=== PATIENT | male | born 1955 | race Caucasian/White ===

== ENCOUNTER 2021-04-07 13:05 | Inpatient (IN) | payer MEDICARE, MEDICAID, SELFPAY ==
[2021-04-07] VITALS (17 sets, daily range): BP systolic 84–117; BP diastolic 43–76; PULSE 58–90; RESP 13–20; TEMP 36.5–37; O2SAT 95–97; BMI 30.7
--- NOTE | ~2021-04-07 | CT_ITS ---
EXAMINATION: CT ABDOMEN AND PELVIS WITHOUT CONTRAST CLINICAL INFORMATION: Lower abdominal tenderness. Gross hematuria . COMPARISON: 10/15/2017. TECHNIQUE: Multidetector volumetric imaging was performed from the superior aspect of the liver through the pubic symphysis without contrast per request. Sagittal and coronal reformatted images were obtained on the technologist workstation. This CT examination was performed using dose optimization techniques as appropriate, variously including the following: *Automated exposure control *Adjustment of mA and/or kV according to patient size (this includes techniques or standardized protocols for targeted exams where dose is matched to indication/reason for exam; i.e. extremities or head) *Use of iterative reconstruction technique DLP: 1106 mGy-cm. FINDINGS: LUNG BASES: Aorta calcification within the aorta lumen is consistent with the patient's known aortic dissection but this is not well assessed on this noncontrast study. Left greater than right basilar consolidation/atelectasis. LIVER: Although this is a noncontrast study, I do not appreciate any focal hepatic lesion or obvious biliary ductal dilatation. The gallbladder is not visualized and presumably surgically absent PANCREAS: Unremarkable. SPLEEN: Unremarkable. ADRENAL GLANDS: Unremarkable. KIDNEYS AND URETERS: The kidneys are normal in size, shape, and attenuation. No hydronephrosis, hydroureter, or calculi seen. No perinephric stranding. BLADDER: Napier catheter is seen within the bladder. Probable TURP defect within the prostate. There is dense material in the bladder lumen more likely representing blood products in the setting of hematuria although residual contrast could have a similar appearance. GASTROINTESTINAL TRACT: Left lower quadrant colostomy. Decompressed remaining rectosigmoid colon with the flow staple line in the left lower quadrant. Small amount of nonobstructed small bowel within the left lower quadrant parastomal hernia. I do not appreciate any obstructive changes in the colon extending into the left lower quadrant colostomy. ABDOMINAL WALL: Left lower quadrant colostomy with small bowel containing parastomal hernia. Tiny fat-containing periumbilical hernia. LYMPHOVASCULAR STRUCTURES: Extensive vascular calcification within the aorta iliac system. The known aortic dissection was better seen on the prior contrast-enhanced CT. PELVIC VISCERA: Probable TURP defect. There is a subtle linear density along the right side of the prostatic urethra of uncertain significance or etiology. This was not seen on the 2018 CT scan through this area OSSEUS STRUCTURES: Extensive degenerative changes in the spine. Exaggerated lumbar lordosis. Marked degenerative changes in the hips. Likely bilateral ischial decubiti ulcer right more so than left with likely chronic bony remodeling changes in the right greater than left ischial bones. Acute osteomyelitis would be difficult to exclude in this setting CT/CT abdomen pelvis wo con IMPRESSION: Dense material within the bladder likely representing blood products in the acute setting. 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 There is a subtle linear density measuring up to 1.4 cm in length to the right of the Napier catheter in the region of the prostatic urethra. Etiology of this is uncertain. Correlation would be helpful. Extensive chronic appearing changes seen with known aortic dissection not well assessed on this noncontrast study. Bilateral right greater than left ischial decubiti ulcers. Underlying osteomyelitis in the ischial bones would be difficult to exclude on a noncontrast CT scan. Left lower quadrant colostomy without obstructive changes.
--- NOTE | ~2021-04-07 | US_ITS ---
EXAMINATION: US PELVIS LIMITED (BLADDER) CLINICAL INFORMATION: Confirm placement of Napier catheter in the bladder, nonspecific prostate. COMPARISON: CT from earlier today TECHNIQUE: Real-time imaging of the bladder. US/US bladder FINDINGS/IMPRESSION: The bladder is partially distended and contains echogenic material suspicious for clot or debris. Napier catheter balloon appears to be located in the bladder.
--- NOTE | 2021-04-07 13:28 | ECG_ITS ---
Test Reason : UROGENITAL Blood Pressure : / mmHG Vent. Rate : 060 BPM Atrial Rate : 050 BPM P-R Int : 000 ms QRS Dur : 088 ms QT Int : 478 ms P-R-T Axes : 000 -66 091 degrees QTc Int : 478 ms Atrial fibrillation Left axis deviation T wave abnormality, consider anterior ischemia Prolonged QT Abnormal ECG When compared with ECG of 21-JUN-2018 13:34, Vent. rate has decreased BY 52 BPM T wave inversion now evident in Anterior leads Referred By: Kisha Castillo Electronically Signed By:Hemanth Wing
[2021-04-07] MEDS: fentaNYL citrate/PF 100 MCG/2 ML VIAL 50 MCG IVPUSH (14:08)
[2021-04-07] MEDS: 0.9 % Sodium Chloride 1,000 ML 999 ML IVCONT (14:08)
[2021-04-07 14:27] LABS: MANUAL DIFF FLAG NO
[2021-04-07 14:28] LABS: Basophils Percent Auto 0.4 % (0-2); Eosinophils Absolute Auto 0.2 X10*3/uL (0.0-0.4); Eosinophils Percent Auto 1.6 % (0-4); Hematocrit 30.6 % (42-52); Hemoglobin 9.6 g/dl (14.0-18.0); Imm Gran Abs Auto 0.05 X10*3/uL (0.00-0.03); Imm Gran Pct Auto 0.5 % (0.0-0.4); Lymphocytes Absolute Auto 1.7 X10*3/uL (1.2-4.9); Lymphocytes Percent Auto 15.3 % (20-40); Mean Corpuscular HGB Conc 31.4 g/dl (31.0-36.0); Mean Corpuscular Hemoglobin 28.9 pg (27.0-33.0); Mean Corpuscular Volume 92.2 fL (80-98); Monocytes Absolute Auto 0.7 X10*3/uL (0.1-1.2); Monocytes Percent Auto 6.6 % (2-11); Neutrophils Absolute Auto 8.4 X10*3/uL (2.0-8.3); Neutrophils Percent Auto 75.6 % (45-73); Platelet Count 262 X10*3/uL (160-400); Red Blood Count 3.32 X10*6/uL (4.60-5.80); White Blood Count 11.1 X10*3/uL (4.8-10.8)
[2021-04-07 14:34] LABS: INTERNATIONAL NORM RATIO 1.5 (0.9-1.1); Prothrombin Time 17.6 SEC (9.9-13.0)
--- NOTE | 2021-04-07 14:40 | PC.NURSE ---
coude barth removed and there was 10ml in balloon and requires 30-50ml. pt has a large clot outside the penis prior to removal, [address] sanchez, medicated w 50mcg fentanyl, dark purple bloody urine flowing out, irrigated manually w 1500 ns and now draining dark pink urine without clots, pt tolerated well , 2 units of uncrossed rbc's started on pt.
[2021-04-07 14:46] LABS: Lactic Acid 2.4 mmol/L (0.5-2.0)
[2021-04-07 14:52] LABS: Alanine Aminotransferase 7 U/L (0-40); Albumin Level 2.9 g/dL (3.5-5.0); Alkaline Phosphatase 68 U/L (39-117); Anion Gap 10 (12-20); Aspartate Amino Transferase 10 U/L (5-37); Bilirubin Direct < 0.2 mg/dL (0.0-0.5); Bilirubin Total 0.2 mg/dL (0.0-1.0); Blood Urea Nitrogen 10 mg/dL (9-16); Calcium 7.7 mg/dL (8.4-10.2); Carbon Dioxide 27 mmol/L (22-29); Chloride 107 mmol/L (96-108); Creatinine Clr Calc Pharmacy 120.9; Estimated Glomerular Filt Rate > 60; Glucose Random 100 mg/dL (60-115); Lipase 24 U/L (8-78); Magnesium 1.4 mg/dL (1.6-2.6); Potassium 3.4 mmol/L (3.3-5.1); Sodium 141 mmol/L (135-145); Total Protein 5.2 g/dL (6.5-8.0)
--- NOTE | 2021-04-07 14:58 | PC.NURSE ---
Patient is sitting in bed alert and oriented. Pt is pale. Pt has 2 units of blood infusing.
[2021-04-07 15:00] LABS: COVID-19 Test Negative (Negative)
--- NOTE | 2021-04-07 15:20 | PC.NURSE ---
Blood transfusion continues with no adverse reactions noted. Pt is alert and in no acute distress at this time.
--- NOTE | 2021-04-07 15:25 | ED.MALEGU ---
HPI - Male Genitourinary General Chief complaint: Urogenital-Male <SAMANTHA Brar - Last Filed: 04/07/21 18:29> Stated complaint: BLOOD IN URINE <SAMANTHA Brar - Last Filed: 04/07/21 18:29> Time Seen by Provider: 04/07/21 13:27 <SAMANTHA Brar - Last Filed: 04/07/21 18:29> Source: patient <SAMANTHA Brar - Last Filed: 04/07/21 18:29> Mode of arrival: ambulatory <SAMANTHA Brar - Last Filed: 04/07/21 18:29> History of Present Illness HPI Narrative: 65-year-old male with a past medical history of osteomyelitis, AFib on Eliquis, colostomy, COVID, HTN, BKA, depressive disorder, chronic indwelling Barth catheter, BIBA from [facility] c/o gross hematuria from Barth catheter and lower abdominal discomfort since last night. Admits at [facility] they changed Barth [employer] without improvement symptoms. Denies CP/SOB, nausea/vomiting, diarrhea /constipation, dysuria, lightheadedness/dizziness <SAMANTHA Brar - Last Filed: 04/07/21 18:29> Related Data Home medications: Home Medications Medication Instructions Recorded Confirmed apixaban [Eliquis] 1 tab PO BID 04/07/21 04/07/21 atorvastatin 1 tab PO DAILY 04/07/21 04/07/21 cholestyramine-aspartame 1 packet PO BID 04/07/21 04/07/21 [Cholestyramine Light] diltiazem HCl 1 tab PO BID 04/07/21 04/07/21 furosemide 1 tab PO BID 04/07/21 04/07/21 gabapentin 1 cap PO TID 04/07/21 04/07/21 mirtazapine 1 tab PO BEDTIME 04/07/21 04/07/21 oxycodone 1 tab PO Q6H PRN 04/07/21 04/07/21 pantoprazole 1 tab PO BID 04/07/21 04/07/21 potassium chloride 1 tab PO DAILY 04/07/21 04/07/21 quetiapine 1 tab PO BID 04/07/21 04/07/21 <SAMANTHA Brar - Last Filed: 04/07/21 18:29> Allergies/Adverse reactions: Allergies Allergy/AdvReac Type Severity Reaction Status Date / Time No Known Allergies Allergy Unverified 06/11/20 15:43 [No Known Allergies*] <SAMANTHA Brar - Last Filed: 04/07/21 18:29> Review of Systems Review of Systems: Constitutional: No Fever, No Chills, No Fatigue, No Malaise ENT/Mouth: No Ear Pain, No Hoarseness, No sore throat Eyes: No Eye Pain, No Vision Changes Cardiovascular: No Chest Pain, No SOB, No Edema Respiratory: No Cough, No Sputum, No Wheezing Gastrointestinal: No Nausea, No Vomiting, No Diarrhea, + Abdominal pain Genitourinary: + irregular bleeding/+hematuria, No Dysuria, No Urinary Frequency, No Flank Pain Musculoskeletal: No joint pain, No Myalgias, No Joint Swelling Skin: No Skin Lesions, No rash Neuro: No Weakness, No Numbness, No Loss of Consciousness, No Dizziness <SAMANTHA Brar Last Filed: 04/07/21 18:29> Yes all other systems are reviewed and are negative <SAMANTHA Brar Last Filed: 04/07/21 18:29> [facility] Past Medical History Attestation statement: The following information was validated with the patient. <SAMANTHA Brar - Last Filed: 04/07/21 18:29> Medical History: Medical History (Updated 04/07/21 @ 18:29 by SAMANTHA Brar) Acute osteomyelitis Atrial fibrillation Colostomy complication COVID Embolism Encounter for surgical aftercare following surgery of digestive system Essential hypertension Major depressive disorder Muscle weakness Paraplegia <SAMANTHA Brar - Last Filed: 04/07/21 18:29> Surgical History: Surgical History (Updated 04/07/21 @ 13:26 by Mumtaz Cali) Hx of BKA <SAMANTHA Brar - Last Filed: 04/07/21 18:29> Social History Social History: Social History Alcohol intake: never Patient Tobacco Use Status: Never used Tobacco Advance Directives: No Advance Directives Information Provided: No <SAMANTHA Brar Last Filed: 04/07/21 18:29> Physical Exam Vital Signs: Vital Signs: Last Vital Signs Temp 98.3 F 04/07/21 19:30 Pulse 82 04/07/21 20:10 Resp 19 04/07/21 20:10 BP 107/53 L 04/07/21 20:10 Pulse Ox 97 04/07/21 20:10 Body Mass Index 30.7 <SAMANTHA Brar - Last Filed: 04/07/21 18:29> Vital Signs: Last Vital Signs Temp 98.3 F 04/07/21 19:30 Pulse 82 04/07/21 20:10 Resp 19 04/07/21 20:10 BP 107/53 L 04/07/21 20:10 Pulse Ox 97 04/07/21 20:10 Body Mass Index 30.7 <HENRIQUE Henning - Last Filed: 04/07/21 22:11> Const: Other: Pale <SAMANTHA Brar - Last Filed: 04/07/21 18:29> General: cooperative, healthy appearing and no acute distress <SAMANTHA Brar - Last Filed: 04/07/21 18:29> Orientation/consciousness: patient oriented x3 <SAMANTHA Brar - Last Filed: 04/07/21 18:29> Limitations: no limitations <SAMANTHA Brar - Last Filed: 04/07/21 18:29> HENMT: Head: Yes normal to inspection and Yes atraumatic <SAMANTHA Brar - Last Filed: 04/07/21 18:29> Ears: hearing grossly normal bilaterally <SAMANTHA Brar - Last Filed: 04/07/21 18:29> General nose exam: Normal external nose present <SAMANTHA Brar - Last Filed: 04/07/21 18:29> Face and sinus: Yes normal facial exam <SAMANTHA Brar - Last Filed: 04/07/21 18:29> Eyes: General: appearance normal, both eyes and all related structures <SAMANTHA Brar - Last Filed: 04/07/21 18:29> Conjunctivae: conjunctival abnormal ( pallor) <SAMANTHA Brar - Last Filed: 04/07/21 18:29> EOM: EOMs intact bilaterally <SAMANTHA Brar - Last Filed: 04/07/21 18:29> Neck: Neck: Yes normal visual inspection <SAMANTHA Brar - Last Filed: 04/07/21 18:29> Resp: Effort & Inspection: normal respiratory effort <Kisha Castillo [place] - Last Filed: 04/07/21 18:29> Auscultation: clear to auscultation bilaterally, no crackles and no wheezes <Kisha Castillo [place] - Last Filed: 04/07/21 18:29> Cardio: Rate: regular rate <Kisha Castillo [place] - Last Filed: 04/07/21 18:29> Heart sounds: S1 normal heart sound present and S2 normal heart sound present <Kisha Castillo [place] - Last Filed: 04/07/21 18:29> GI: Other: colostomy present in left lower quadrant <Kisha Castillo [place] - Last Filed: 04/07/21 18:29> Inspection: Yes normal to inspection <Kisha Castillo [place] - Last Filed: 04/07/21 18:29> Palpation (GI): Soft to palpation, Tenderness to palpation present (GI) ( lower abdomen), no guarding and not rigid <Kisha Castillo [place] - Last Filed: 04/07/21 18:29> : Other: Barth catheter in place with a large blood clot at meatus. <Kisha Castillo [place] - Last Filed: 04/07/21 18:29> Skin: Rashes: no rashes <Kisha Castillo [place] - Last Filed: 04/07/21 18:29> Wounds: no wounds <Kisha Castillo [place] - Last Filed: 04/07/21 18:29> Neuro: General: patient oriented x3 <Kisha Castillo [place] - Last Filed: 04/07/21 18:29> Gait exam (Neuro): Normal gait present <Kisha Castillo [place] - Last Filed: 04/07/21 18:29> Extrem: General: Yes normal to inspection <SAMANTHA Brar - Last Filed: 04/07/21 18:29> Course Course Course Narrative: -emergent type and cross ordered of 2 units of RBCs. Consent is signed and in patient's chart -Mild leukocytosis of 11, H&H low at 9.6/30 patient's baseline is 13/39 -lactic acid elevated to 2.4 > likely from volume depletion /dehydration, magnesium low 1.4 > IV repletion ordered -1651--UA not infected CT abdomen pelvis wo con IMPRESSION: Dense material within the bladder likely representing blood products in the acute setting. 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 There is a subtle linear density measuring up to 1.4 cm in length to the right of the Barth catheter in the region of the prostatic urethra. Etiology of this is uncertain. Correlation would be helpful. Extensive chronic appearing changes seen with known aortic dissection not well assessed on this noncontrast study. Bilateral right greater than left ischial decubiti ulcers. Underlying osteomyelitis in the ischial bones would be difficult to exclude on a noncontrast CT scan. Left lower quadrant colostomy without obstructive changes. >> case discussed with Urology, Dr. Jernigan recommended holding Eliquis, empiric antibiotics and manual bladder irrigation. He will see patient in the morning. Evaluated patient has decubitus ulcers, appear chronic, patient reports improving, known history of osteomyelitis, not currently on treatment. Patient will be admitted to hospitalist service for further management <SAMANTHA Brar - Last Filed: 04/07/21 18:29> Reevaluation(s) Reevaluation #1: Pt <Alicia Laguna PA-C - Last Filed: 04/07/21 22:11> Time: 22:05 <Alicia Laguna PA-C - Last Filed: 04/07/21 22:11> Reevaluation #2: Dr. Thurston texted to confirm situation with patient's Barth. Upon my exam, patient had multiple large blood clots coming out around the Barth, as well as copious amount of blood in bag. Had Dr. Rosario examine patient as well, she removed all the blood clots, she advise traction, ultrasound to confirm placement of Barth in the bladder and not the prostate. Sent a picture to Dr. Thurston as well as narrative explaining situation. He said to have the nurse hand irrigate. Order in for CBI. Patient seeking pain medication as he is in a lot of pain, if patient has hydromorphone p.r.n., advised nurse. <Alicia Laguna PA-C - Last Filed: 04/07/21 22:11> MDM - Male Genitourinary MDM Narrative Medical decision making narrative: 65-year-old male with a past medical history of osteomyelitis, AFib on Eliquis, colostomy, COVID, HTN, BKA, depressive disorder, chronic indwelling Barth catheter, BIBA from [facility] c/o gross hematuria from Barth catheter and lower abdominal discomfort since last night. On exam hypotensive, pale with conjunctival pallor, abdomen soft with lower abdomen ttp, gross hematuria noted from Barth catheter with large clot at meatus, barth removed, new [address] Japanese cou[address] Dr[address] Monroe, initially very dark hematuria noted now pinkish after flushing. Emergent units of RBCs ordered. Concern for anemia/active bleeding vs infetious etiology vs improper Barth catheter placement Plan: EKG, labs, UA, CT AP, transfusion, anticipated admission <SAMANTHA Brar - Last Filed: 04/07/21 18:29> Medical Records Attestation: I reviewed the patient's medical records. <SAMANTHA Brar - Last Filed: 04/07/21 18:29> Lab Data Attestation: I reviewed the patient's lab results. <SAMANTHA Barr - Last Filed: 04/07/21 18:29> Result diagrams: : 04/07/21 14:19 04/07/21 14:20 <SAMANTHA Brar - Last Filed: 04/07/21 18:29> Labs: Lab Results 04/07/21 04/07/21 04/07/21 Range/Units 14:18 14:19 14:20 WBC 11.1 H (4.8-10.8) X10*3/uL RBC 3.32 L (4.60-5.80) X10*6/uL Hgb 9.6 L (14.0-18.0) g/dl Hct 30.6 L (42-52) % MCV 92.2 (80-98) fL MCH 28.9 (27.0-33.0) pg MCHC 31.4 (31.0-36.0) g/dl RDW 14.0 (11.0-16.0) % Plt Count 262 (160-400) X10*3/uL MPV 9.0 L (9.4-12.4) fL Immature Gran % (Auto) 0.5 H (0.0-0.4) % Neut % (Auto) 75.6 H (45-73) % Lymph % (Auto) 15.3 L (20-40) % Franklin % (Auto) 6.6 (2-11) % Eos % (Auto) 1.6 (0-4) % Baso % (Auto) 0.4 (0-2) % Lymph # (Auto) 1.7 (1.2-4.9) X10*3/uL Franklin # (Auto) 0.7 (0.1-1.2) X10*3/uL Eos # (Auto) 0.2 (0.0-0.4) X10*3/uL Baso # (Auto) 0.0 (0.0-0.2) X10*3/uL Abs Immat Gran (auto) 0.05 H (0.00-0.03) X10*3/uL Absolute Neuts (auto) 8.4 H (2.0-8.3) X10*3/uL Absolute Nucleated RBC 0.000 (0.0-0.012) X10*3/uL Nucleated RBC % (auto) 0.0 (0.0-0.2) /100WBC PT 17.6 H (9.9-13.0) SEC INR 1.5 H (0.9-1.1) APTT 35.0 (24.1-38.0) SEC Sodium (135-145) mmol/L Potassium (3.3-5.1) mmol/L Chloride (96-108) mmol/L Carbon Dioxide (22-29) mmol/L Anion Gap (12-20) BUN (9-16) mg/dL Creatinine (0.5-1.4) mg/dL Estim Creat Clear Calc Estimated GFR Random Glucose (60-115) mg/dL Lactic Acid (0.5-2.0) mmol/L Lactic Acid Fup @ 2Hr (0.5-2.0) mmol/L Calcium (8.4-10.2) mg/dL Magnesium (1.6-2.6) mg/dL Total Bilirubin (0.0-1.0) mg/dL Direct Bilirubin (0.0-0.5) mg/dL AST (5-37) U/L ALT (0-40) U/L Alkaline Phosphatase (39-117) U/L Total Protein (6.5-8.0) g/dL Albumin (3.5-5.0) g/dL Lipase (8-78) U/L Urine Color Urine Appearance Urine pH (5.0-8.0) Ur Specific [place] (1.005-1.025) Urine Protein (NEG-TRACE) MG/DL Urine Glucose (UA) (NEG) MG/DL Urine Ketones (NEG) MG/DL Urine Blood (NEG) Urine Nitrite (NEG) Ur Leukocyte Esterase (NEG) Urine RBC (0) /HPF Urine WBC (0-4) /HPF Ur Squamous Epith Cells /LPF Urine Bacteria /LPF COVID-19 (CHRISTINE) (Negative) COVID-19 Clin Com Blood Type B Positive Antibody Screen NEGATIVE Crossmatch See Detail 04/07/21 04/07/21 04/07/21 Range/Units 14:20 14:20 14:30 WBC (4.8-10.8) X10*3/uL RBC (4.60-5.80) X10*6/uL Hgb (14.0-18.0) g/dl Hct (42-52) % MCV (80-98) fL MCH (27.0-33.0) pg MCHC (31.0-36.0) g/dl RDW (11.0-16.0) % Plt Count (160-400) X10*3/uL MPV (9.4-12.4) fL Immature Gran % (Auto) (0.0-0.4) % Neut % (Auto) (45-73) % Lymph % (Auto) (20-40) % Franklin % (Auto) (2-11) % Eos % (Auto) (0-4) % Baso % (Auto) (0-2) % Lymph # (Auto) (1.2-4.9) X10*3/uL Franklin # (Auto) (0.1-1.2) X10*3/uL Eos # (Auto) (0.0-0.4) X10*3/uL Baso # (Auto) (0.0-0.2) X10*3/uL Abs Immat Gran (auto) (0.00-0.03) X10*3/uL Absolute Neuts (auto) (2.0-8.3) X10*3/uL Absolute Nucleated RBC (0.0-0.012) X10*3/uL Nucleated RBC % (auto) (0.0-0.2) /100WBC PT (9.9-13.0) SEC INR (0.9-1.1) APTT (24.1-38.0) SEC Sodium 141 (135-145) mmol/L Potassium 3.4 (3.3-5.1) mmol/L Chloride 107 (96-108) mmol/L Carbon Dioxide 27 (22-29) mmol/L Anion Gap 10 L (12-20) BUN 10 (9-16) mg/dL Creatinine 0.61 (0.5-1.4) mg/dL Estim Creat Clear Calc 120.9 Estimated GFR > 60 Random Glucose 100 (60-115) mg/dL Lactic Acid 2.4 H* (0.5-2.0) mmol/L Lactic Acid Fup @ 2Hr (0.5-2.0) mmol/L Calcium 7.7 L (8.4-10.2) mg/dL Magnesium 1.4 L* (1.6-2.6) mg/dL Total Bilirubin 0.2 (0.0-1.0) mg/dL Direct Bilirubin < 0.2 (0.0-0.5) mg/dL AST 10 (5-37) U/L ALT 7 (0-40) U/L Alkaline Phosphatase 68 (39-117) U/L Total Protein 5.2 L (6.5-8.0) g/dL Albumin 2.9 L (3.5-5.0) g/dL Lipase 24 (8-78) U/L Urine Color Urine Appearance Urine pH (5.0-8.0) Ur Specific [place] (1.005-1.025) Urine Protein (NEG-TRACE) MG/DL Urine Glucose (UA) (NEG) MG/DL Urine Ketones (NEG) MG/DL Urine Blood (NEG) Urine Nitrite (NEG) Ur Leukocyte Esterase (NEG) Urine RBC (0) /HPF Urine WBC (0-4) /HPF Ur Squamous Epith Cells /LPF Urine Bacteria /LPF COVID-19 (CHRISTINE) Negative (Negative) COVID-19 Clin Com See Note Blood Type Antibody Screen Crossmatch 04/07/21 04/07/21 Range/Units 15:37 16:46 WBC (4.8-10.8) X10*3/uL RBC (4.60-5.80) X10*6/uL Hgb (14.0-18.0) g/dl Hct (42-52) % MCV (80-98) fL MCH (27.0-33.0) pg MCHC (31.0-36.0) g/dl RDW (11.0-16.0) % Plt Count (160-400) X10*3/uL MPV (9.4-12.4) fL Immature Gran % (Auto) (0.0-0.4) % Neut % (Auto) (45-73) % Lymph % (Auto) (20-40) % Franklin % (Auto) (2-11) % Eos % (Auto) (0-4) % Baso % (Auto) (0-2) % Lymph # (Auto) (1.2-4.9) X10*3/uL Franklin # (Auto) (0.1-1.2) X10*3/uL Eos # (Auto) (0.0-0.4) X10*3/uL Baso # (Auto) (0.0-0.2) X10*3/uL Abs Immat Gran (auto) (0.00-0.03) X10*3/uL Absolute Neuts (auto) (2.0-8.3) X10*3/uL Absolute Nucleated RBC (0.0-0.012) X10*3/uL Nucleated RBC % (auto) (0.0-0.2) /100WBC PT (9.9-13.0) SEC INR (0.9-1.1) APTT (24.1-38.0) SEC Sodium (135-145) mmol/L Potassium (3.3-5.1) mmol/L Chloride (96-108) mmol/L Carbon Dioxide (22-29) mmol/L Anion Gap (12-20) BUN (9-16) mg/dL Creatinine (0.5-1.4) mg/dL Estim Creat Clear Calc Estimated GFR Random Glucose (60-115) mg/dL Lactic Acid (0.5-2.0) mmol/L Lactic Acid Fup @ 2Hr 2.1 H* (0.5-2.0) mmol/L Calcium (8.4-10.2) mg/dL Magnesium (1.6-2.6) mg/dL Total Bilirubin (0.0-1.0) mg/dL Direct Bilirubin (0.0-0.5) mg/dL AST (5-37) U/L ALT (0-40) U/L Alkaline Phosphatase (39-117) U/L Total Protein (6.5-8.0) g/dL Albumin (3.5-5.0) g/dL Lipase (8-78) U/L Urine Color RED Urine Appearance TURBID Urine pH 6.5 (5.0-8.0) Ur Specific [place] 1.010 (1.005-1.025) Urine Protein 2+ H (NEG-TRACE) MG/DL Urine Glucose (UA) NEG (NEG) MG/DL Urine Ketones NEG (NEG) MG/DL Urine Blood 3+ H (NEG) Urine Nitrite NEG (NEG) Ur Leukocyte Esterase 1+ H (NEG) Urine RBC TNTC H (0) /HPF Urine WBC 1-4 (0-4) /HPF Ur Squamous Epith Cells NONE /LPF Urine Bacteria 1+ /LPF COVID-19 (CHRISTINE) (Negative) COVID-19 Clin Com Blood Type Antibody Screen Crossmatch <SAMANTHA Brar - Last Filed: 04/07/21 18:29> Lab Results 04/07/21 04/07/21 04/07/21 Range/Units 14:18 14:19 14:20 WBC 11.1 H (4.8-10.8) X10*3/uL RBC 3.32 L (4.60-5.80) X10*6/uL Hgb 9.6 L (14.0-18.0) g/dl Hct 30.6 L (42-52) % MCV 92.2 (80-98) fL MCH 28.9 (27.0-33.0) pg MCHC 31.4 (31.0-36.0) g/dl RDW 14.0 (11.0-16.0) % Plt Count 262 (160-400) X10*3/uL MPV 9.0 L (9.4-12.4) fL Immature Gran % (Auto) 0.5 H (0.0-0.4) % Neut % (Auto) 75.6 H (45-73) % Lymph % (Auto) 15.3 L (20-40) % Franklin % (Auto) 6.6 (2-11) % Eos % (Auto) 1.6 (0-4) % Baso % (Auto) 0.4 (0-2) % Lymph # (Auto) 1.7 (1.2-4.9) X10*3/uL Franklin # (Auto) 0.7 (0.1-1.2) X10*3/uL Eos # (Auto) 0.2 (0.0-0.4) X10*3/uL Baso # (Auto) 0.0 (0.0-0.2) X10*3/uL Abs Immat Gran (auto) 0.05 H (0.00-0.03) X10*3/uL Absolute Neuts (auto) 8.4 H (2.0-8.3) X10*3/uL Absolute Nucleated RBC 0.000 (0.0-0.012) X10*3/uL Nucleated RBC % (auto) 0.0 (0.0-0.2) /100WBC PT 17.6 H (9.9-13.0) SEC INR 1.5 H (0.9-1.1) APTT 35.0 (24.1-38.0) SEC Sodium (135-145) mmol/L Potassium (3.3-5.1) mmol/L Chloride (96-108) mmol/L Carbon Dioxide (22-29) mmol/L Anion Gap (12-20) BUN (9-16) mg/dL Creatinine (0.5-1.4) mg/dL Estim Creat Clear Calc Estimated GFR Random Glucose (60-115) mg/dL Lactic Acid (0.5-2.0) mmol/L Lactic Acid Fup @ 2Hr (0.5-2.0) mmol/L Calcium (8.4-10.2) mg/dL Magnesium (1.6-2.6) mg/dL Total Bilirubin (0.0-1.0) mg/dL Direct Bilirubin (0.0-0.5) mg/dL AST (5-37) U/L ALT (0-40) U/L Alkaline Phosphatase (39-117) U/L Total Protein (6.5-8.0) g/dL Albumin (3.5-5.0) g/dL Lipase (8-78) U/L Urine Color Urine Appearance Urine pH (5.0-8.0) Ur Specific [place] (1.005-1.025) Urine Protein (NEG-TRACE) MG/DL Urine Glucose (UA) (NEG) MG/DL Urine Ketones (NEG) MG/DL Urine Blood (NEG) Urine Nitrite (NEG) Ur Leukocyte Esterase (NEG) Urine RBC (0) /HPF Urine WBC (0-4) /HPF Ur Squamous Epith Cells /LPF Urine Bacteria /LPF COVID-19 (CHRISTINE) (Negative) COVID-19 Clin Com Blood Type B Positive Antibody Screen NEGATIVE Crossmatch See Detail 04/07/21 04/07/21 04/07/21 Range/Units 14:20 14:20 14:30 WBC (4.8-10.8) X10*3/uL RBC (4.60-5.80) X10*6/uL Hgb (14.0-18.0) g/dl Hct (42-52) % MCV (80-98) fL MCH (27.0-33.0) pg MCHC (31.0-36.0) g/dl RDW (11.0-16.0) % Plt Count (160-400) X10*3/uL MPV (9.4-12.4) fL Immature Gran % (Auto) (0.0-0.4) % Neut % (Auto) (45-73) % Lymph % (Auto) (20-40) % Franklin % (Auto) (2-11) % Eos % (Auto) (0-4) % Baso % (Auto) (0-2) % Lymph # (Auto) (1.2-4.9) X10*3/uL [place] # (Auto) (0.1-1.2) X10*3/uL Eos # (Auto) (0.0-0.4) X10*3/uL Baso # (Auto) (0.0-0.2) X10*3/uL Abs Immat Gran (auto) (0.00-0.03) X10*3/uL Absolute Neuts (auto) (2.0-8.3) X10*3/uL Absolute Nucleated RBC (0.0-0.012) X10*3/uL Nucleated RBC % (auto) (0.0-0.2) /100WBC PT (9.9-13.0) SEC INR (0.9-1.1) APTT (24.1-38.0) SEC Sodium 141 (135-145) mmol/L Potassium 3.4 (3.3-5.1) mmol/L Chloride 107 (96-108) mmol/L Carbon Dioxide 27 (22-29) mmol/L Anion Gap 10 L (12-20) BUN 10 (9-16) mg/dL Creatinine 0.61 (0.5-1.4) mg/dL Estim Creat Clear Calc 120.9 Estimated GFR > 60 Random Glucose 100 (60-115) mg/dL Lactic Acid 2.4 H* (0.5-2.0) mmol/L Lactic Acid Fup @ 2Hr (0.5-2.0) mmol/L Calcium 7.7 L (8.4-10.2) mg/dL Magnesium 1.4 L* (1.6-2.6) mg/dL Total Bilirubin 0.2 (0.0-1.0) mg/dL Direct Bilirubin < 0.2 (0.0-0.5) mg/dL AST 10 (5-37) U/L ALT 7 (0-40) U/L Alkaline Phosphatase 68 (39-117) U/L Total Protein 5.2 L (6.5-8.0) g/dL Albumin 2.9 L (3.5-5.0) g/dL Lipase 24 (8-78) U/L Urine Color Urine Appearance Urine pH (5.0-8.0) Ur Specific [place] (1.005-1.025) Urine Protein (NEG-TRACE) MG/DL Urine Glucose (UA) (NEG) MG/DL Urine Ketones (NEG) MG/DL Urine Blood (NEG) Urine Nitrite (NEG) Ur Leukocyte Esterase (NEG) Urine RBC (0) /HPF Urine WBC (0-4) /HPF Ur Squamous Epith Cells /LPF Urine Bacteria /LPF COVID-19 (CHRISTINE) Negative (Negative) COVID-19 Clin Com See Note Blood Type Antibody Screen Crossmatch 04/07/21 04/07/21 Range/Units 15:37 16:46 WBC (4.8-10.8) X10*3/uL RBC (4.60-5.80) X10*6/uL Hgb (14.0-18.0) g/dl Hct (42-52) % MCV (80-98) fL MCH (27.0-33.0) pg MCHC (31.0-36.0) g/dl RDW (11.0-16.0) % Plt Count (160-400) X10*3/uL MPV (9.4-12.4) fL Immature Gran % (Auto) (0.0-0.4) % Neut % (Auto) (45-73) % Lymph % (Auto) (20-40) % [place] % (Auto) (2-11) % Eos % (Auto) (0-4) % Baso % (Auto) (0-2) % Lymph # (Auto) (1.2-4.9) X10*3/uL [place] # (Auto) (0.1-1.2) X10*3/uL Eos # (Auto) (0.0-0.4) X10*3/uL Baso # (Auto) (0.0-0.2) X10*3/uL Abs Immat Gran (auto) (0.00-0.03) X10*3/uL Absolute Neuts (auto) (2.0-8.3) X10*3/uL Absolute Nucleated RBC (0.0-0.012) X10*3/uL Nucleated RBC % (auto) (0.0-0.2) /100WBC PT (9.9-13.0) SEC INR (0.9-1.1) APTT (24.1-38.0) SEC Sodium (135-145) mmol/L Potassium (3.3-5.1) mmol/L Chloride (96-108) mmol/L Carbon Dioxide (22-29) mmol/L Anion Gap (12-20) BUN (9-16) mg/dL Creatinine (0.5-1.4) mg/dL Estim Creat Clear Calc Estimated GFR Random Glucose (60-115) mg/dL Lactic Acid (0.5-2.0) mmol/L Lactic Acid Fup @ 2Hr 2.1 H* (0.5-2.0) mmol/L Calcium (8.4-10.2) mg/dL Magnesium (1.6-2.6) mg/dL Total Bilirubin (0.0-1.0) mg/dL Direct Bilirubin (0.0-0.5) mg/dL AST (5-37) U/L ALT (0-40) U/L Alkaline Phosphatase (39-117) U/L Total Protein (6.5-8.0) g/dL Albumin (3.5-5.0) g/dL Lipase (8-78) U/L Urine Color RED Urine Appearance TURBID Urine pH 6.5 (5.0-8.0) Ur Specific [place] 1.010 (1.005-1.025) Urine Protein 2+ H (NEG-TRACE) MG/DL Urine Glucose (UA) NEG (NEG) MG/DL Urine Ketones NEG (NEG) MG/DL Urine Blood 3+ H (NEG) Urine Nitrite NEG (NEG) Ur Leukocyte Esterase 1+ H (NEG) Urine RBC TNTC H (0) /HPF Urine WBC 1-4 (0-4) /HPF Ur Squamous Epith Cells NONE /LPF Urine Bacteria 1+ /LPF COVID-19 (CHRISTINE) (Negative) COVID-19 Clin Com Blood Type Antibody Screen Crossmatch <Alicia Laguna PA-C - Last Filed: 04/07/21 22:11> Discharge Plan Discharge Clinical Impression: Gross hematuria, Anemia <SAMANTHA Brar - Last Filed: 04/07/21 18:29> Patient Disposition: Admitted As Inpatient <SAMANTHA Brar - Last Filed: 04/07/21 18:29>
[2021-04-07 15:53] LABS: Glucose Urine UA NEG (NEG); Leukocyte Esterase Urine 1+ (NEG); Nitrite Urine NEG (NEG); PH 6.5 (5.0-8.0); UACC Culture Trigger YES; Urine Blood 3+ (NEG); Urine Ketones NEG (NEG); Urine Protein 2+ MG/DL (NEG-TRACE)
[2021-04-07 15:54] LABS: Appearance Urine TURBID
[2021-04-07 15:55] LABS: Color Urine RED
[2021-04-07 16:00] LABS: Bacteria Urine 1+ /LPF; RBC Urine TNTC /HPF (0)
--- NOTE | 2021-04-07 16:00 | PC.NURSE ---
Patient is lying in bed watching tv in no distres. Pt shows no signs of adverse reaction to blood transfusion that continues to infuse. Pt continues to have hematuria. [place] is intact and patent
[2021-04-07 16:25] LABS: Reflex Lactate? Lactic Acid Added
[2021-04-07 17:19] LABS: ~Lactic Acid-LAB USE ONLY 2.1 mmol/L (0.5-2.0)
--- NOTE | 2021-04-07 17:45 | PC.NURSE ---
Transfusion unit # [id number] complete. pt tolerated well. line flushed with normal saline.
--- NOTE | 2021-04-07 18:15 | PC.NURSE ---
Second unit of uncrossmatched blood stopped due to time out on hanging. Lab and provider notified of blood not completely in.
[2021-04-07 18:49] LABS: Reflex Lactate? 2 Y
--- NOTE | 2021-04-07 19:33 | PC.NURSE ---
3 blood unit up and running.
--- NOTE | 2021-04-07 19:35 | PC.NURSE ---
Ceftriaxone will be administered post blood transfusion.
--- NOTE | 2021-04-07 21:08 | P.HPHOSP_ITS ---
History of Present Illness Date of Service: 04/07/21 Chief Complaint: hematuria This is a 65-year-old male with past medical history of osteomyelitis, AFib, on Eliquis, hypertension, colostomy( per patient due to nonhealing sacral wound), BKA, depression, paraplegia, chronic indwelling Napier catheter who presents from [facility] for hematuria. Patient reports that it started this morning, associated with suprapubic pain, urinary retention, no fever no chills, no flank pain. Patient does report that he was otherwise in good health up until this morning, did not have any hematuria the day prior,, currently denies any chest pain, no abdominal pain, patient is paraplegic and is usually bedbound. Review of systems otherwise negative On arrival to the ED patient hemodynamically stable with no significant abnormal vitals Labs are significant for 11.1, hemoglobin of 9.7, hematocrit of 30.6, prothrom bin time of 17.6, INR of 1.5, lactic acid of 2.4 that improved with IV fluids, magnesium of 1.4, albumin of 2.9, UA positive for leukocyte Estrace and WBC, Patient was found to have a large clot at the meatus and the Napier was changed in the ED. CT abdomen showed blood products in the bladder as well as TURP defect within the prostate, and other chronic findings including chronic aortic dissection and chronic osteomyelitis near the ischial bones. Urology was consulted by ED and will see patient in the morning. Review of Systems Review of Systems: Yes all other systems are reviewed and are negative [facility] Medical History Acute osteomyelitis Atrial fibrillation Colostomy complication COVID Embolism Encounter for surgical aftercare following surgery of digestive system Essential hypertension Major depressive disorder Muscle weakness Paraplegia Surgical History Hx of BKA Social History Household Members: Family Housing: Other Housing Other:: Pt comes from [facility] Do you presently have visiting nurse or other home services: Yes Alcohol intake: never Patient Tobacco Use Status: Never used Tobacco Use of substances other than those prescribed or required for medical reasons: No Have you been hit, kicked, punched, or otherwise hurt by someone within the past year? If so, by whom?: No Do you feel safe in your current relationship?: No Is there a partner from a previous relationship who is making you feel unsafe now?: No Are you made to feel afraid or neglected: No Advance Directives: No Advance Directives Information Provided: No Do you have thoughts of harming others: None Do you have a plan to hurt others: No Plan Recently lost weight without trying: Unsure Eating poorly because of decreased appetite: No Nutrition Risks: No Nutritional Risk Poor oral hygiene: No Meds Allergies Allergy/AdvReac Type Severity Reaction Status Date / Time No Known Allergies Allergy Unverified 06/11/20 15:43 [No Known Allergies*] Active Medications: Current Medications Generic Name Dose Route Start Last Admin Trade Name Freq PRN Reason Stop Dose Admin Pharmacy Consult 1 each 04/07/21 14:01 Consult Rx Perform Med Rec MISCELLANE ONCE PRN Consult order Home Medications Medication Instructions Recorded Confirmed Last Taken Type apixaban [Eliquis] 1 tab PO BID 04/07/21 04/07/21 Unknown History atorvastatin 1 tab PO DAILY 04/07/21 04/07/21 Unknown History cholestyramine-aspartame 1 packet PO BID 04/07/21 04/07/21 Unknown History [Cholestyramine Light] diltiazem HCl 1 tab PO BID 04/07/21 04/07/21 Unknown History furosemide 1 tab PO BID 04/07/21 04/07/21 Unknown History gabapentin 1 cap PO TID 04/07/21 04/07/21 Unknown History mirtazapine 1 tab PO BEDTIME 04/07/21 04/07/21 Unknown History oxycodone 1 tab PO Q6H PRN 04/07/21 04/07/21 Unknown History pantoprazole 1 tab PO BID 04/07/21 04/07/21 Unknown History potassium chloride 1 tab PO DAILY 04/07/21 04/07/21 Unknown History quetiapine 1 tab PO BID 04/07/21 04/07/21 Unknown History Physical Exam Vital Signs and Narrative: Vital Signs: Last Vital Signs Temp 98.3 F 04/07/21 19:30 Pulse 82 04/07/21 20:10 Resp 19 04/07/21 20:10 BP 107/53 L 04/07/21 20:10 Pulse Ox 97 04/07/21 20:10 Body Mass Index 30.7 Const: General: cooperative and no acute distress Orientation/consciousness: patient oriented x3 Eyes: General: appearance normal, both eyes and all related structures Resp: Effort & Inspection: normal respiratory effort and able to speak in complete sentences Cardio: Rate: regular rate Rhythm: regular rhythm GI: Palpation (GI): Soft to palpation Auscultation: normal bowel sounds : Other: Napier catheter in place, draining clots and very dark urine Skin: General skin exam: no rashes or lesions noted Neuro: General: patient oriented x3 Cognition (Neuro): normal cognition Extrem: Other: Left BKA, right leg contracted Results Labs CBC and Chem 7: 04/07/21 22:52 04/07/21 14:20 Labs: Laboratory Results - last 24 hr 04/07/21 04/07/21 04/07/21 14:18 14:19 14:20 MCV 92.2 MCH 28.9 MCHC 31.4 RDW 14.0 Plt Count 262 MPV 9.0 L Immature Gran % (Auto) 0.5 H Neut % (Auto) 75.6 H Lymph % (Auto) 15.3 L [place] % (Auto) 6.6 Eos % (Auto) 1.6 Baso % (Auto) 0.4 Lymph # (Auto) 1.7 [place] # (Auto) 0.7 Eos # (Auto) 0.2 Baso # (Auto) 0.0 Abs Immat Gran (auto) 0.05 H Absolute Neuts (auto) 8.4 H Absolute Nucleated RBC 0.000 Nucleated RBC % (auto) 0.0 PT 17.6 H INR 1.5 H APTT 35.0 Anion Gap Estim Creat Clear Calc Estimated GFR Random Glucose Lactic Acid Lactic Acid Fup @ 2Hr Calcium Magnesium Total Bilirubin Direct Bilirubin AST ALT Alkaline Phosphatase Total Protein Albumin Lipase Urine Color Urine Appearance Urine pH Ur Specific [place] Urine Protein Urine Glucose (UA) Urine Ketones Urine Blood Urine Nitrite Ur Leukocyte Esterase Urine RBC Urine WBC Ur Squamous Epith Cells Urine Bacteria COVID-19 (CHRISTINE) COVID-19 Clin Com Blood Type B Positive Antibody Screen NEGATIVE Crossmatch See Detail 04/07/21 04/07/21 04/07/21 14:20 14:20 14:30 MCV MCH MCHC RDW Plt Count MPV Immature Gran % (Auto) Neut % (Auto) Lymph % (Auto) [place] % (Auto) Eos % (Auto) Baso % (Auto) Lymph # (Auto) [place] # (Auto) Eos # (Auto) Baso # (Auto) Abs Immat Gran (auto) Absolute Neuts (auto) Absolute Nucleated RBC Nucleated RBC % (auto) PT INR APTT Anion Gap 10 L Estim Creat Clear Calc 120.9 Estimated GFR > 60 Random Glucose 100 Lactic Acid 2.4 H* Lactic Acid Fup @ 2Hr Calcium 7.7 L Magnesium 1.4 L* Total Bilirubin 0.2 Direct Bilirubin < 0.2 AST 10 ALT 7 Alkaline Phosphatase 68 Total Protein 5.2 L Albumin 2.9 L Lipase 24 Urine Color Urine Appearance Urine pH Ur Specific [place] Urine Protein Urine Glucose (UA) Urine Ketones Urine Blood Urine Nitrite Ur Leukocyte Esterase Urine RBC Urine WBC Ur Squamous Epith Cells Urine Bacteria COVID-19 (CHRISTINE) Negative COVID-19 Clin Com See Note Blood Type Antibody Screen Crossmatch 04/07/21 04/07/21 15:37 16:46 MCV MCH MCHC RDW Plt Count MPV Immature Gran % (Auto) Neut % (Auto) Lymph % (Auto) [place] % (Auto) Eos % (Auto) Baso % (Auto) Lymph # (Auto) [place] # (Auto) Eos # (Auto) Baso # (Auto) Abs Immat Gran (auto) Absolute Neuts (auto) Absolute Nucleated RBC Nucleated RBC % (auto) PT INR APTT Anion Gap Estim Creat Clear Calc Estimated GFR Random Glucose Lactic Acid Lactic Acid Fup @ 2Hr 2.1 H* Calcium Magnesium Total Bilirubin Direct Bilirubin AST ALT Alkaline Phosphatase Total Protein Albumin Lipase Urine Color RED Urine Appearance TURBID Urine pH 6.5 Ur Specific [place] 1.010 Urine Protein 2+ H Urine Glucose (UA) NEG Urine Ketones NEG Urine Blood 3+ H Urine Nitrite NEG Ur Leukocyte Esterase 1+ H Urine RBC TNTC H Urine WBC 1-4 Ur Squamous Epith Cells NONE Urine Bacteria 1+ COVID-19 (CHRISTINE) COVID-19 Clin Com Blood Type Antibody Screen Crossmatch Imaging Radiologist's Impressions: Impressions Abdomen/Pelvis CT 04/07/21 15:30 IMPRESSION: Dense material within the bladder likely representing blood products in the acute setting. 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 There is a subtle linear density measuring up to 1.4 cm in length to the right of the Napier catheter in the region of the prostatic urethra. Etiology of this is uncertain. Correlation would be helpful. Extensive chronic appearing changes seen with known aortic dissection not well assessed on this noncontrast study. Bilateral right greater than left ischial decubiti ulcers. Underlying osteomyelitis in the ischial bones would be difficult to exclude on a noncontrast CT scan. Left lower quadrant colostomy without obstructive changes. Assessment and Plan (1) Gross hematuria: Status: Acute (2) Anemia: Status: Acute 65-year-old male with past medical history of AFib, paraplegia with chronic Napier catheter in place, chronic osteomyelitis, HTN, who presents to the hospital with complaints of hematuria. # gross hematuria - most likely secondary to anticoagulation - given active bleed patient will receive Kcentra and vitamin K - ordered 2 units of PRBC by the ED - will follow H&H - IV fluids - urology consulted - as patient had significant clotting in the urinary catheter urology was consulted regarding CBI but recommended manual flush # anemia - no significant drop in hemoglobin from his based - patient receiving 2 units of PRBC - will follow H&H post transfuse # UTI - afebrile, no leukocytosis - start him on IV antibiotic - follow culture # AFib - hold Eliquis - continue diltiazem # GERD - continue pantoprazole # hypertension - stable - continue diltiazem DVT prophylaxis: SCDs in the setting of hematuria Quality Stroke Does the patient have a stroke diagnosis?: No VTE Prior VTE?: No VTE Risk Level:: Medical - moderate - high VTE Device Contraindication: N/A - Device Ordered VTE Drug Contraindication: Treatment Not Tolerated
[2021-04-07] MEDS: cefTRIAXone sodium 1 GM in 0.9 % Sodium Chloride 50 ML IV ×2 (22:00→22:30)
[2021-04-07 22:13] LABS: INTERNATIONAL NORM RATIO 1.4 (0.9-1.1); Prothrombin Time 16.4 SEC (9.9-13.0)
[2021-04-07] MEDS: HYDROmorphone HCl 0.5 MG/0.5 ML SYRINGE IVPUSH (22:18)
[2021-04-07] MEDS: QUEtiapine Fumarate 50 MG TABLET PO (22:26)
[2021-04-07] MEDS: Gabapentin 100 MG CAPSULE PO (22:26)
[2021-04-07] MEDS: Mirtazapine 15 MG TABLET PO (22:26)
--- NOTE | 2021-04-07 22:48 | PC.NURSE ---
Patient's had a huge amount of blood that was clotted from around his catheter. MD and PA informed of issue and they evaluated it. Hospitalist notified. Per hospitalist patient needs continuous bladder irrigation. Patient does not have a 3 way catheter. The penis head is flayed. I am uncomfortable with placing a catheter considering the patient's presentation. Urologist consulted. Patient was ultrasounded.
[2021-04-07 22:57] LABS: MANUAL DIFF FLAG NO
[2021-04-07 23:01] LABS: Basophils Absolute Auto 0.1 X10*3/uL (0.0-0.2); Basophils Percent Auto 0.4 % (0-2); Eosinophils Absolute Auto 0.2 X10*3/uL (0.0-0.4); Eosinophils Percent Auto 1.2 % (0-4); Hematocrit 32.3 % (42-52); Hemoglobin 10.8 g/dl (14.0-18.0); Imm Gran Abs Auto 0.13 X10*3/uL (0.00-0.03); Imm Gran Pct Auto 0.8 % (0.0-0.4); Lymphocytes Absolute Auto 1.7 X10*3/uL (1.2-4.9); Lymphocytes Percent Auto 10.9 % (20-40); Mean Corpuscular HGB Conc 33.4 g/dl (31.0-36.0); Mean Corpuscular Hemoglobin 30.8 pg (27.0-33.0); Mean Platelet Volume 9.5 fL (9.4-12.4); Monocytes Absolute Auto 0.9 X10*3/uL (0.1-1.2); Neutrophils Absolute Auto 12.6 X10*3/uL (2.0-8.3); Neutrophils Percent Auto 80.7 % (45-73); Platelet Count 264 X10*3/uL (160-400); Red Blood Count 3.51 X10*6/uL (4.60-5.80); White Blood Count 15.6 X10*3/uL (4.8-10.8)
[2021-04-07] MEDS: Hum Prothrombin Cplx(PCC)4Fact 2,000 UNIT in Container,Empty 0 ML 480 UNIT IV (23:30)
[2021-04-07] MEDS: Phytonadione (Vit K1) 2.5 MG in 0.9 % Sodium Chloride 50 ML 50.25 MG IV (23:51)
[2021-04-08] VITALS (10 sets, daily range): BP systolic 103–145; BP diastolic 56–69; PULSE 86–109; RESP 15–20; TEMP 36.4–37.2; O2SAT 93–99; BMI 30.7
[2021-04-08] MEDS: 0.9 % Sodium Chloride Flush 3 ML SYRINGE IVFLUSH ×4 (00:04→21:50)
--- NOTE | 2021-04-08 00:07 | PC.NURSE ---
Intake amount in the ER was 2225 ml while in ER. Patient has an ostomy bag which has not changed since he has been here. Patients output 700 cc's.
[2021-04-08 06:21] LABS: MANUAL DIFF FLAG NO
[2021-04-08 06:52] LABS: Basophils Absolute Auto 0.1 X10*3/uL (0.0-0.2); Basophils Percent Auto 0.4 % (0-2); Eosinophils Absolute Auto 0.1 X10*3/uL (0.0-0.4); Eosinophils Percent Auto 0.5 % (0-4); Hemoglobin 10.5 g/dl (14.0-18.0); Imm Gran Abs Auto 0.08 X10*3/uL (0.00-0.03); Imm Gran Pct Auto 0.6 % (0.0-0.4); Lymphocytes Absolute Auto 2.2 X10*3/uL (1.2-4.9); Lymphocytes Percent Auto 15.4 % (20-40); Mean Corpuscular HGB Conc 31.8 g/dl (31.0-36.0); Mean Corpuscular Hemoglobin 29.6 pg (27.0-33.0); Monocytes Absolute Auto 0.9 X10*3/uL (0.1-1.2); Monocytes Percent Auto 6.1 % (2-11); Neutrophils Absolute Auto 10.8 X10*3/uL (2.0-8.3); Platelet Count 248 X10*3/uL (160-400); Red Blood Count 3.55 X10*6/uL (4.60-5.80); Red Cell Distribution Width 14.1 % (11.0-16.0)
[2021-04-08 07:04] LABS: Anion Gap 14 (12-20); Blood Urea Nitrogen 15 mg/dL (9-16); Calcium 7.6 mg/dL (8.4-10.2); Carbon Dioxide 23 mmol/L (22-29); Chloride 106 mmol/L (96-108); Creatinine Clr Calc Pharmacy 129.4; Estimated Glomerular Filt Rate > 60; Glucose Random 115 mg/dL (60-115); Magnesium 1.3 mg/dL (1.6-2.6); Potassium 3.5 mmol/L (3.3-5.1); Sodium 139 mmol/L (135-145)
--- NOTE | 2021-04-08 07:51 | P.CDIC_ITS ---
CDI Concurrent Query Service Date: 04/08/21 Documentation Clarification: Please clarify if you are treating a proba ble/suspected/likely or confirmed: Acute Blood Loss Anemia Other Anemia, please specify Provider Response: Acute Blood Loss Anemia PLEASE DO NOT DELETE/MODIFY EXISTING CONTENT Additional information is needed in order to code to the highest accuracy and appropriate Severity of Illness (SOI). Please clarify the information noted bel ow in your progress notes and discharge summary. Risk Factors/Clinical Indicators/Treatments admit with blood in urine, gross hematuria in barth catheter H/H 9.03/24 Treated with blood transfusion 2 units RBC Per ED Impression: Anemia CDS: Neema Mcduffie RN Contact Number: [phone] Please Review the information above and exercise your independent professional judgment in responding to the query. If you concur, pleas document in the PROGRESS NOTES and DISCHARGE SUMMARY. If you do not agree with the query, please document in the query above. THIS QUERY IS PART OF THE PERMANENT MEDICAL RECORD
--- NOTE | 2021-04-08 07:55 | P.CDIC_ITS ---
CDI Concurrent Query Service Date: 04/08/21 Documentation Clarification: Please clarify if you are treating a proba ble/suspected/likely or confirmed: UTI due to indwelling Napier catheter UTI not due to indwelling Napier catheter Other, please specify Provider Response: Other Other Diagnosis: UTI due to indwelling Napier catheter PLEASE DO NOT DELETE/MODIFY EXISTING CONTENT Additional information is needed in order to code to the highest accuracy and appropriate Severity of Illness (SOI). Please clarify the information noted below in your progress notes and discharge summary. Risk Factors/Clinical Indicators/Treatments Chronic indwelling Napier catheter with gross hematuria Urine culture pending Per H&P Impression: UTI On IV antibiotic CDS: Neema Mcduffie RN Contact Number: [phone] Please Review the information above and exercise your independent professional judgment in responding to the query. If you concur, pleas document in the [place] OGRESS NOTES and DISCHARGE SUMMARY. If you do not agree with the query, please document in the query above. THIS QUERY IS PART OF THE PERMANENT MEDICAL RECORD
[2021-04-08] MEDS: HYDROmorphone HCl 0.5 MG/0.5 ML SYRINGE IVPUSH ×2 (07:58→16:00)
[2021-04-08] MEDS: Potassium Chloride ER 20 MEQ TAB.ER.PRT PO (08:19)
[2021-04-08] MEDS: Atorvastatin Calcium 20 MG TABLET PO (08:20)
[2021-04-08] MEDS: dilTIAZem HCL 30 MG TABLET 90 MG PO ×2 (08:20→21:50)
[2021-04-08] MEDS: QUEtiapine Fumarate 50 MG TABLET PO ×2 (08:20→21:50)
[2021-04-08] MEDS: Furosemide 20 MG TABLET PO (08:20)
[2021-04-08] MEDS: Gabapentin 100 MG CAPSULE PO ×3 (08:20→21:50)
[2021-04-08] MEDS: Magnesium Sulfate/H2O 2 GM/50 ML PIGGYBACK IV (10:29)
--- NOTE | 2021-04-08 11:39 | HO.PM.IMPN ---
Subjective Subjective Date of Service: 04/08/21 Interval History: the patient was seen and evaluated this morning Laying in bed, complaining of burning sensation with urination and uncomfortable with the catheter Bloody drainage from the Napier catheter with multiple clots Denies any fever, chills or shortness of breath No reported other overnight events. Systemic review: No fever, chills or weakness No chest pain, palpitation No shortness of breath or coughing No abdominal pain, nausea or vomiting Urine catheter in place No any rash or wounds Physical Exam Vital Signs: Vital Signs: Last Vital Signs Temp 98.1 F 04/08/21 11:25 Pulse 86 04/08/21 11:25 Resp 20 04/08/21 11:25 BP 103/57 L 04/08/21 11:25 Pulse Ox 93 04/08/21 11:25 Body Mass Index 30.7 Const: Other: Constitutional : Alert, oriented, in mild discomfort Neck : Normal inspection, Supple Cardiovascular : RRR, S1 S2, no lower extremity edema Respiratory : Good bilateral air entry, no crackles, wheezes or rhonchi Gastrointestinal: soft, lax, Normal bowel sounds, Non tender Skin : Warm/Dry, urine catheter in place with dark bloody drainage filling the urine bag Neurological : Alert & oriented x3, No focal deficit Muscular: Left above-knee amputation Objective Data Current Medications Generic Name Dose Route Start Last Admin Trade Name Kodakq PRN Reason Stop Dose Admin Acetaminophen 650 mg 04/07/21 21:09 Acetaminophen 325 Mg Tablet PO Q6H PRN Pain, Mild (Pain Scale 1-3) Atorvastatin Calcium 20 mg 04/08/21 09:00 04/08/21 08:20 Atorvastatin Calcium 20 Mg Tablet PO 20 mg DAILY KELLY Administration Diltiazem HCl 90 mg 04/08/21 09:00 04/08/21 08:20 Diltiazem Hcl 30 Mg Tablet PO 90 mg BID KELLY Administration Protocol Docusate Sodium 100 mg 04/07/21 21:09 Docusate Sodium 100 Mg Capsule PO DAILY PRN Constipation Furosemide 20 mg 04/08/21 09:00 04/08/21 08:20 Furosemide 20 Mg Tablet PO 20 mg BID KELLY Administration Protocol Gabapentin 100 mg 04/07/21 21:15 04/08/21 08:20 Gabapentin 100 Mg Capsule PO 100 mg TID KELLY Administration Hydromorphone HCl 0.5 mg 04/07/21 22:03 04/08/21 07:58 Hydromorphone Hcl 0.5 Mg/0.5 Ml Syringe IVPUSH 0.5 mg Q4H PRN Administration Pain, Severe (Pain Scale 7-10) Ceftriaxone Sodium 1 gm/ 50 mls @ 100 mls/hr 04/07/21 21:15 04/07/21 22:30 Sodium Chloride IV Infused Q24H KELLY Infusion Mirtazapine 15 mg 04/07/21 21:15 04/07/21 22:26 Mirtazapine 15 Mg Tablet PO 15 mg BEDTIME KELLY Administration Omeprazole 20 mg 04/08/21 06:30 04/08/21 04:27 Omeprazole 20 Mg Capsule.Dr PO Not Given BID@0630,1630 REPLACED BY [facility] Ondansetron HCl 4 mg 04/07/21 21:09 Ondansetron Hcl 4 Mg/2 Ml Vial IVPUSH Q8H PRN Nausea and Vomiting Oxycodone HCl 5 mg 04/07/21 21:09 Oxycodone Hcl Immed Release 5 Mg Tablet PO Q6H PRN Pain Pharmacy Consult 1 each 04/07/21 14:01 Consult Rx Perform Med Rec MISCELLANE ONCE PRN Consult order Potassium Chloride 20 meq 04/08/21 09:00 04/08/21 08:19 Potassium Chloride Er 20 Meq Tab.Er.Prt PO 20 meq DAILY KELLY Administration Quetiapine Fumarate 50 mg 04/07/21 21:15 04/08/21 08:20 Quetiapine Fumarate 50 Mg Tablet PO 50 mg BID KELLY Administration Sodium Chloride 3 ml 04/08/21 00:00 04/08/21 08:21 0.9 % Sodium Chloride Flush 3 Ml Syringe IVFLUSH 3 ml QSHIFT KELLY Administration Labs CBC & Chem 7: 04/08/21 05:31 04/08/21 05:31 Labs: Laboratory Results - last 24 hr 04/07/21 04/07/21 04/07/21 14:18 14:19 14:20 WBC 11.1 H RBC 3.32 L Hgb 9.6 L Hct 30.6 L MCV 92.2 MCH 28.9 MCHC 31.4 RDW 14.0 Plt Count 262 MPV 9.0 L Immature Gran % (Auto) 0.5 H Neut % (Auto) 75.6 H Lymph % (Auto) 15.3 L Victoria % (Auto) 6.6 Eos % (Auto) 1.6 Baso % (Auto) 0.4 Lymph # (Auto) 1.7 Victoria # (Auto) 0.7 Eos # (Auto) 0.2 Baso # (Auto) 0.0 Abs Immat Gran (auto) 0.05 H Absolute Neuts (auto) 8.4 H Absolute Nucleated RBC 0.000 Nucleated RBC % (auto) 0.0 PT 17.6 H INR 1.5 H APTT 35.0 Sodium Potassium Chloride Carbon Dioxide Anion Gap BUN Creatinine Estim Creat Clear Calc Estimated GFR Random Glucose Lactic Acid Lactic Acid Fup @ 2Hr Lactic Acid Fup @ 4Hr Calcium Magnesium Total Bilirubin Direct Bilirubin AST ALT Alkaline Phosphatase Total Protein Albumin Lipase Urine Color Urine Appearance Urine pH Ur Specific [place] Urine Protein Urine Glucose (UA) Urine Ketones Urine Blood Urine Nitrite Ur Leukocyte Esterase Urine RBC Urine WBC Ur Squamous Epith Cells Urine Bacteria COVID-19 (CHRISTINE) COVID-[employer] Com Blood Type B Positive Antibody Screen NEGATIVE Crossmatch See Detail 04/07/21 04/07/21 04/07/21 14:20 14:20 14:30 WBC RBC Hgb Hct MCV MCH MCHC RDW Plt Count MPV Immature Gran % (Auto) Neut % (Auto) Lymph % (Auto) Victoria % (Auto) Eos % (Auto) Baso % (Auto) Lymph # (Auto) Victoria # (Auto) Eos # (Auto) Baso # (Auto) Abs Immat Gran (auto) Absolute Neuts (auto) Absolute Nucleated RBC Nucleated RBC % (auto) PT INR APTT Sodium 141 Potassium 3.4 Chloride 107 Carbon Dioxide 27 Anion Gap 10 L BUN 10 Creatinine 0.61 Estim Creat Clear Calc 120.9 Estimated GFR > 60 Random Glucose 100 Lactic Acid 2.4 H* Lactic Acid Fup @ 2Hr Lactic Acid Fup @ 4Hr Calcium 7.7 L Magnesium 1.4 L* Total Bilirubin 0.2 Direct Bilirubin < 0.2 AST 10 ALT 7 Alkaline Phosphatase 68 Total Protein 5.2 L Albumin 2.9 L Lipase 24 Urine Color Urine Appearance Urine pH Ur Specific [place] Urine Protein Urine Glucose (UA) Urine Ketones Urine Blood Urine Nitrite Ur Leukocyte Esterase Urine RBC Urine WBC Ur Squamous Epith Cells Urine Bacteria COVID-19 (CHRISTINE) Negative COVIDAgora [employer] See Note Blood Type Antibody Screen Crossmatch 04/07/21 04/07/21 04/07/21 15:37 16:46 21:24 WBC RBC Hgb Hct MCV MCH MCHC RDW Plt Count MPV Immature Gran % (Auto) Neut % (Auto) Lymph % (Auto) Victoria % (Auto) Eos % (Auto) Baso % (Auto) Lymph # (Auto) Victoria # (Auto) Eos # (Auto) Baso # (Auto) Abs Immat Gran (auto) Absolute Neuts (auto) Absolute Nucleated RBC Nucleated RBC % (auto) PT INR APTT Sodium Potassium Chloride Carbon Dioxide Anion Gap BUN Creatinine Estim Creat Clear Calc Estimated GFR Random Glucose Lactic Acid Lactic Acid Fup @ 2Hr 2.1 H* Lactic Acid Fup @ 4Hr 2.0 Calcium Magnesium Total Bilirubin Direct Bilirubin AST ALT Alkaline Phosphatase Total Protein Albumin Lipase Urine Color RED Urine Appearance TURBID Urine pH 6.5 Ur Specific [place] 1.010 Urine Protein 2+ H Urine Glucose (UA) NEG Urine Ketones NEG Urine Blood 3+ H Urine Nitrite NEG Ur Leukocyte Esterase 1+ H Urine RBC TNTC H Urine WBC 1-4 Ur Squamous Epith Cells NONE Urine Bacteria 1+ COVID-19 (CHRISTINE) COVID-19 Clin Com Blood Type Antibody Screen Crossmatch 04/07/21 04/07/21 04/08/21 21:53 22:52 05:31 WBC 15.6 H 14.0 H RBC 3.51 L 3.55 L Hgb 10.8 L 10.5 L Hct 32.3 L 33.0 L MCV 92.0 93.0 MCH 30.8 29.6 MCHC 33.4 31.8 RDW 14.0 14.1 Plt Count 264 248 MPV 9.5 10.0 Immature Gran % (Auto) 0.8 H 0.6 H Neut % (Auto) 80.7 H 77.0 H Lymph % (Auto) 10.9 L 15.4 L Victoria % (Auto) 6.0 6.1 Eos % (Auto) 1.2 0.5 Baso % (Auto) 0.4 0.4 Lymph # (Auto) 1.7 2.2 Victoria # (Auto) 0.9 0.9 Eos # (Auto) 0.2 0.1 Baso # (Auto) 0.1 0.1 Abs Immat Gran (auto) 0.13 H 0.08 H Absolute Neuts (auto) 12.6 H 10.8 H Absolute Nucleated RBC 0.000 0.000 Nucleated RBC % (auto) 0.0 0.0 PT 16.4 H INR 1.4 H APTT Sodium Potassium Chloride Carbon Dioxide Anion Gap BUN Creatinine Estim Creat Clear Calc Estimated GFR Random Glucose Lactic Acid Lactic Acid Fup @ 2Hr Lactic Acid Fup @ 4Hr Calcium Magnesium Total Bilirubin Direct Bilirubin AST ALT Alkaline Phosphatase Total Protein Albumin Lipase Urine Color Urine Appearance Urine pH Ur Specific [place] Urine Protein Urine Glucose (UA) Urine Ketones Urine Blood Urine Nitrite Ur Leukocyte Esterase Urine RBC Urine WBC Ur Squamous Epith Cells Urine Bacteria COVID-19 (CHRISTINE) COVID-19 [employer] Com Blood Type Antibody Screen Crossmatch 04/08/21 04/08/21 05:31 05:31 WBC RBC Hgb Hct MCV MCH MCHC RDW Plt Count MPV Immature Gran % (Auto) Neut % (Auto) Lymph % (Auto) Victoria % (Auto) Eos % (Auto) Baso % (Auto) Lymph # (Auto) Victoria # (Auto) Eos # (Auto) Baso # (Auto) Abs Immat Gran (auto) Absolute Neuts (auto) Absolute Nucleated RBC Nucleated RBC % (auto) PT INR APTT Sodium 139 Potassium 3.5 Chloride 106 Carbon Dioxide 23 Anion Gap 14 BUN 15 Creatinine 0.57 Estim Creat Clear Calc 129.4 Estimated GFR > 60 Random Glucose 115 Lactic Acid Lactic Acid Fup @ 2Hr Lactic Acid Fup @ 4Hr Calcium 7.6 L Magnesium 1.3 L* Cancelled Total Bilirubin Direct Bilirubin AST ALT Alkaline Phosphatase Total Protein Albumin Lipase Urine Color Urine Appearance Urine pH Ur Specific [place] Urine Protein Urine Glucose (UA) Urine Ketones Urine Blood Urine Nitrite Ur Leukocyte Esterase Urine RBC Urine WBC Ur Squamous Epith Cells Urine Bacteria COVID-19 (CHRISTINE) COVID-19 [employer] Com Blood Type Antibody Screen Crossmatch Microbiology Microbiology Results: Microbiology 04/07/21 14:19 Blood Culture - Preliminary Blood - Venous Prelim: GPC Gram Stain only 04/07/21 15:56 Urine Culture - Final Urine clean catch - Urine means top Quality Stroke Does the patient have a stroke diagnosis?: No VTE Prior VTE?: No VTE Risk Level:: Medical - moderate - high VTE Device Contraindication: N/A - Device Ordered VTE Drug Contraindication: Treatment Not Tolerated Assessment and Plan (1) Gross hematuria: Status: Acute (2) Anemia: Status: Acute Assessment and Plan: 65-year-old male with past medical history of AFib, paraplegia with chronic Napier catheter in place, chronic osteomyelitis, HTN, who presents to the hospital with complaints of hematuria. # gross hematuria secondary to Napier catheter, being on anticoagulation Received Kcentra and vitamin K Continue IV fluids Urology consult Urology recommended to hold on CBI yesterday, to discuss again today # acute blood loss anemia Hemoglobin of 10 from baseline of 13 previously Received 2 units of PRBC follow H&H post transfuse # Napier catheter related UTI # positive blood cultures One bottle is positive for g stain To repeat blood cultures afebrile, no leukocytosis Continue IV antibiotic # AFib hold Eliquis continue diltiazem # GERD continue pantoprazole # hypertension stable continue diltiazem DVT prophylaxis SCDs in the setting of hematuria
--- NOTE | 2021-04-08 14:27 | MHC.CM.PN ---
CM MET WITH PT WHO REPORTS HE HAS BEEN AT [facility] FOR SEVERAL MONTHS WHILE HE WAITS [facility] ALL OF HIS DME TO BE SET UP AT HOME. PT REPORTS HE WOULD LIKE TO RETURN TO A FACILITY BUT MAY WANT TO GO TO A SMALLER SNF. PT REQUESTED A REFERRAL TO [facility]. CM INFORMED PT, SINCE HE IS A STC BED HOLD AT [facility], IT IS UNCLEAR IF HE CAN MOVE TO A NEW FACILITY EASILY. CM DID MAKE A REFERRAL TO EXPLORE THIS OPTION. PT REPORTS HE DOES HAVE A PCP AT [facility] BUT DOES NOT K NOW THE NAME. CURRENT DC PLAN IS RETURN TO [facility] OF WHERE PT IS A STC BED HOLD VS STC AT [facility]. BLS TRANSPORT
[2021-04-08] MEDS: Omeprazole 20 MG CAPSULE.DR PO (16:00)
[2021-04-08] MEDS: 0.9 % Sodium Chloride 1,000 ML 999 ML IV (16:01)
[2021-04-08 16:50] LABS: Hematocrit 28.7 % (42-52); Hemoglobin 9.3 g/dl (14.0-18.0); Mean Corpuscular HGB Conc 32.4 g/dl (31.0-36.0); Mean Corpuscular Hemoglobin 30.1 pg (27.0-33.0); Mean Corpuscular Volume 92.9 fL (80-98); Mean Platelet Volume 9.4 fL (9.4-12.4); Platelet Count 259 X10*3/uL (160-400); Red Blood Count 3.09 X10*6/uL (4.60-5.80); Red Cell Distribution Width 14.3 % (11.0-16.0); White Blood Count 11.5 X10*3/uL (4.8-10.8)
[2021-04-08] MEDS: cefTRIAXone sodium 1 GM in 0.9 % Sodium Chloride 50 ML IV (21:50)
[2021-04-08] MEDS: Mirtazapine 15 MG TABLET PO (21:50)
[2021-04-09] VITALS (9 sets, daily range): BP systolic 104–114; BP diastolic 53–66; PULSE 74–98; RESP 16–19; TEMP 36.6–37.2; O2SAT 95–97
[2021-04-09] MEDS: Omeprazole 20 MG CAPSULE.DR PO ×2 (05:19→16:31)
[2021-04-09] MEDS: HYDROmorphone HCl 0.5 MG/0.5 ML SYRINGE IVPUSH ×4 (05:20→19:58)
--- NOTE | 2021-04-09 05:50 | PC.NURSE ---
Napier continuing to drain appx 700cc bloody urine overnight with one large clot noted. No need to irrigate overnight. Bladder scan at 0600 showed no retention (0 cc).
[2021-04-09 06:49] LABS: Hematocrit 25.6 % (42-52); Hemoglobin 8.5 g/dl (14.0-18.0); Mean Corpuscular HGB Conc 33.2 g/dl (31.0-36.0); Mean Corpuscular Hemoglobin 30.6 pg (27.0-33.0); Mean Corpuscular Volume 92.1 fL (80-98); Platelet Count 235 X10*3/uL (160-400); Red Blood Count 2.78 X10*6/uL (4.60-5.80); Red Cell Distribution Width 14.2 % (11.0-16.0); White Blood Count 10.8 X10*3/uL (4.8-10.8)
[2021-04-09 07:27] LABS: Anion Gap 10 (12-20); Blood Urea Nitrogen 13 mg/dL (9-16); Calcium 7.8 mg/dL (8.4-10.2); Carbon Dioxide 25 mmol/L (22-29); Chloride 107 mmol/L (96-108); Creatinine Clr Calc Pharmacy 129.4; Estimated Glomerular Filt Rate > 60; Glucose Random 118 mg/dL (60-115); Potassium 3.4 mmol/L (3.3-5.1); Sodium 139 mmol/L (135-145)
[2021-04-09 08:56] LABS: Magnesium 1.8 mg/dL (1.6-2.6)
[2021-04-09] MEDS: 0.9 % Sodium Chloride Flush 3 ML SYRINGE IVFLUSH ×3 (09:28→19:59)
[2021-04-09] MEDS: Atorvastatin Calcium 20 MG TABLET PO (09:29)
[2021-04-09] MEDS: Gabapentin 100 MG CAPSULE PO ×3 (09:29→19:56)
[2021-04-09] MEDS: QUEtiapine Fumarate 50 MG TABLET PO ×2 (09:29→19:57)
[2021-04-09] MEDS: Furosemide 20 MG TABLET PO ×2 (09:29→19:57)
[2021-04-09] MEDS: Potassium Chloride ER 20 MEQ TAB.ER.PRT PO (09:29)
[2021-04-09] MEDS: dilTIAZem HCL 30 MG TABLET 90 MG PO ×2 (09:29→19:56)
--- NOTE | 2021-04-09 13:30 | MHC.CLN ---
F/U PT WITH INCREASED NUTRITION RISK R/T PRESSURE INJURY DIET RX: 2GM NA -APPROPRIATE RECOMMEND ADDING ENSURE AND BELTRAN TO PROMOTE WOUND HEALING SUPPLEMENTS TO PROVIDE 860KCALS, 40G PROTEIN MONITOR PO INTAKE CLOSELY SEE ALSO CLINICAL NUTRITION ASSESSMENT
--- NOTE | 2021-04-09 13:31 | HO.PM.IMPN ---
Subjective Subjective Date of Service: 04/09/21 Interval History: The patient was seen and evaluated this morning Laying in bed, cannot set up complaining of burning sensation with urination and uncomfortable with the catheter Bloody drainage from the Napier catheter looks little better than yesterday Drop in hemoglobin to 8.5 Denies any fever, chills or shortness of breath No reported other overnight events. Systemic review: No fever, chills or weakness No chest pain, palpitation No shortness of breath or coughing No abdominal pain, nausea or vomiting Urine catheter in place No any rash or wounds Physical Exam Vital Signs: Vital Signs: Last Vital Signs Temp 98.5 F 04/09/21 13:07 Pulse 91 04/09/21 13:07 Resp 18 04/09/21 13:07 BP 108/64 04/09/21 13:07 Pulse Ox 97 04/09/21 08:00 Body Mass Index 30.7 Const: Other: Constitutional : Alert, oriented, in mild discomfort Neck : Normal inspection, Supple Cardiovascular : RRR, S1 S2, no lower extremity edema Respiratory : Good bilateral air entry, no crackles, wheezes or rhonchi Gastrointestinal: soft, lax, Normal bowel sounds, Non tender Skin : Warm/Dry, urine catheter in place with dark bloody drainage filling the urine bag Neurological : Alert & oriented x3, No focal deficit Muscular: Left above-knee amputation Objective Data Current Medications Generic Name Dose Route Start Last Admin Trade Name Freq PRN Reason Stop Dose Admin Acetaminophen 650 mg 04/07/21 21:09 Acetaminophen 325 Mg Tablet PO Q6H PRN Pain, Mild (Pain Scale 1-3) Atorvastatin Calcium 20 mg 04/08/21 09:00 04/09/21 09:29 Atorvastatin Calcium 20 Mg Tablet PO 20 mg DAILY KELLY Administration Diltiazem HCl 90 mg 04/08/21 09:00 04/09/21 09:29 Diltiazem Hcl 30 Mg Tablet PO 90 mg BID KELLY Administration Protocol Docusate Sodium 100 mg 04/07/21 21:09 Docusate Sodium 100 Mg Capsule PO DAILY PRN Constipation Furosemide 20 mg 04/08/21 09:00 04/09/21 09:29 Furosemide 20 Mg Tablet PO 20 mg BID KELLY Administration Protocol Gabapentin 100 mg 04/07/21 21:15 04/09/21 09:29 Gabapentin 100 Mg Capsule PO 100 mg TID KELLY Administration Hydromorphone HCl 0.5 mg 04/07/21 22:03 04/09/21 09:49 Hydromorphone Hcl 0.5 Mg/0.5 Ml Syringe IVPUSH 0.5 mg Q4H PRN Administration Pain, Severe (Pain Scale 7-10) Ceftriaxone Sodium 1 gm/ 50 mls @ 100 mls/hr 04/07/21 21:15 04/08/21 22:21 Sodium Chloride IV Infused Q24H EKLLY Infusion Mirtazapine 15 mg 04/07/21 21:15 04/08/21 21:50 Mirtazapine 15 Mg Tablet PO 15 mg BEDTIME KELLY Administration Omeprazole 20 mg 04/08/21 06:30 04/09/21 05:19 Omeprazole 20 Mg Capsule.Dr PO 20 mg BID@0630,1630 KELLY Administration Ondansetron HCl 4 mg 04/07/21 21:09 Ondansetron Hcl 4 Mg/2 Ml Vial IVPUSH Q8H PRN Nausea and Vomiting Oxycodone HCl 5 mg 04/07/21 21:09 Oxycodone Hcl Immed Release 5 Mg Tablet PO Q6H PRN Pain Pharmacy Consult 1 each 04/07/21 14:01 Consult Rx Perform Med Rec MISCELLANE ONCE PRN Consult order Potassium Chloride 20 meq 04/08/21 09:00 04/09/21 09:29 Potassium Chloride Er 20 Meq Tab.Er.Prt PO 20 meq DAILY KELLY Administration Quetiapine Fumarate 50 mg 04/07/21 21:15 04/09/21 09:29 Quetiapine Fumarate 50 Mg Tablet PO 50 mg BID KELLY Administration Sodium Chloride 3 ml 04/08/21 00:00 04/09/21 09:28 0.9 % Sodium Chloride Flush 3 Ml Syringe IVFLUSH 3 ml QSHIFT KELLY Administration Labs CBC & Chem 7: 04/09/21 06:41 04/09/21 06:41 Labs: Laboratory Results - last 24 hr 04/07/21 04/08/21 04/09/21 14:18 16:36 06:41 WBC 11.5 H 10.8 RBC 3.09 L 2.78 L Hgb 9.3 L 8.5 L Hct 28.7 L 25.6 L MCV 92.9 92.1 MCH 30.1 30.6 MCHC 32.4 33.2 RDW 14.3 14.2 Plt Count 259 235 MPV 9.4 9.0 L Absolute Nucleated RBC 0.000 0.000 Nucleated RBC % (auto) 0.0 0.0 Sodium Potassium Chloride Carbon Dioxide Anion Gap BUN Creatinine Estim Creat Clear Calc Estimated GFR Random Glucose Calcium Magnesium Blood Type B Positive Antibody Screen NEGATIVE Crossmatch See Detail 04/09/21 06:41 WBC RBC Hgb Hct MCV MCH MCHC RDW Plt Count MPV Absolute Nucleated RBC Nucleated RBC % (auto) Sodium 139 Potassium 3.4 Chloride 107 Carbon Dioxide 25 Anion Gap 10 L BUN 13 Creatinine 0.57 Estim Creat Clear Calc 129.4 Estimated GFR > 60 Random Glucose 118 H Calcium 7.8 L Magnesium 1.8 Blood Type Antibody Screen Crossmatch Microbiology Microbiology Results: Microbiology 04/07/21 14:19 Blood Culture - Final Blood - Venous Coag negative Staphylococcus 04/07/21 14:30 Blood Culture - Preliminary Blood - Venous No growth after 24 hours. Quality Stroke Does the patient have a stroke diagnosis?: No VTE Prior VTE?: No VTE Risk Level:: Medical - moderate - high VTE Device Contraindication: N/A - Device Ordered VTE Drug Contraindication: Treatment Not Tolerated Assessment and Plan (1) Gross hematuria: Status: Acute (2) Anemia: Status: Acute Assessment and Plan: 65-year-old male with past medical history of AFib, paraplegia with chronic Napier catheter in place, chronic osteomyelitis, HTN, who presents to the hospital with complaints of hematuria. # gross hematuria secondary to Napier catheter, being on anticoagulation Received Kcentra and vitamin K Continue IV fluids Urology consult pending Urology recommended to hold on CBI yesterday # acute blood loss anemia Hemoglobin of dropped to 8.5 this morning from baseline of 13 previously Received 3 units of PRBC, receiving the 4th unit now To prepare 2 extra units follow H&H post transfuse # Napier catheter related UTI # positive blood cultures One bottle coagulase negative Staph Pending repeat blood cultures afebrile, no leukocytosis Continue ceftriaxone for UTI # AFib hold Eliquis continue diltiazem # GERD continue pantoprazole # hypertension stable continue diltiazem DVT prophylaxis SCDs in the setting of hematuria
--- NOTE | 2021-04-09 13:50 | MHC.CM.PN ---
PT HAS BEEN OFFERED A BED BY [facility] WHICH HE HAS INDICATED WOULD BE HIS FIRST CHOICE. CURRENT DC PLAN IS STC AT [facility] VIA S
[2021-04-09] MEDS: oxyCODONE HCl Immed Release 5 MG TABLET PO (16:48)
--- NOTE | 2021-04-09 17:43 | P.CNUR_ITS ---
History of Present Illness Consult details Consult date: 04/08/21 Narrative: patient known to Urology consultation regarding hematuria on anticoagulation 20 Angolan coude catheter placed and bladder irrigated has been given reverse medications for anticoagulation would treat as UTI CBI only needed if obstructing clots for Review of Systems Constitutional: Constitutional: Denies chills and Denies fever(s) Cardiovascular: Cardiovascular: Reports no additional cardiovascular complaints and Denies syncope Respiratory: Respiratory: Denies cough Gastrointestinal: Gastrointestinal: Denies abdominal pain and Denies heartburn Genitourinary: Genitourinary: Reports as per HPI and Denies change in libido Neurologic: Denies syncope Psychiatric: Psychiatric: Denies change in libido Endocrine: Endocrine: Denies change in libido [facility] Past Medical History Medical History Acute osteomyelitis Atrial fibrillation Colostomy complication COVID Embolism Encounter for surgical aftercare following surgery of digestive system Essential hypertension Major depressive disorder Muscle weakness Paraplegia Surgical History Surgical History Hx of BKA Social History Social History Household Members: Family Housing: Other Housing Other:: Pt comes from [facility] Do you presently have visiting nurse or other home services: Yes Alcohol intake: never Patient Tobacco Use Status: Never used Tobacco Use of substances other than those prescribed or required for medical reasons: No Currently Displaying Signs/Symptoms of Drug Intoxication Withdrawal: No Have you been hit, kicked, punched, or otherwise hurt by someone within the past year? If so, by whom?: No Do you feel safe in your current relationship?: No Is there a partner from a previous relationship who is making you feel unsafe now?: No Are you made to feel afraid or neglected: No Advance Directives: No Advance Directives Information Provided: No Do you have thoughts of harming others: None Do you have a plan to hurt others: No Plan Recently lost weight without trying: Unsure Eating poorly because of decreased appetite: No Nutrition Risks: No Nutritional Risk Poor oral hygiene: No service: No Current occupational status: disabled Meds Allergies Allergy/AdvReac Type Severity Reaction Status Date / Time No Known Allergies Allergy Unverified 09/17/20 15:43 [No Known Allergies*] Active Medications: Current Medications Generic Name Dose Route Start Last Admin Trade Name Kodakq PRN Reason Stop Dose Admin Acetaminophen 650 mg 04/07/21 21:09 Acetaminophen 325 Mg Tablet PO Q6H PRN Pain, Mild (Pain Scale 1-3) Atorvastatin Calcium 20 mg 04/08/21 09:00 04/09/21 09:29 Atorvastatin Calcium 20 Mg Tablet PO 20 mg DAILY KELLY Administration Diltiazem HCl 90 mg 04/08/21 09:00 04/09/21 09:29 Diltiazem Hcl 30 Mg Tablet PO 90 mg BID KELLY Administration Protocol Docusate Sodium 100 mg 04/07/21 21:09 Docusate Sodium 100 Mg Capsule PO DAILY PRN Constipation Furosemide 20 mg 04/08/21 09:00 04/09/21 09:29 Furosemide 20 Mg Tablet PO 20 mg BID KELLY Administration Protocol Gabapentin 100 mg 04/07/21 21:15 04/09/21 14:49 Gabapentin 100 Mg Capsule PO 100 mg TID KELLY Administration Hydromorphone HCl 0.5 mg 04/07/21 22:03 04/09/21 14:49 Hydromorphone Hcl 0.5 Mg/0.5 Ml Syringe IVPUSH 0.5 mg Q4H PRN Administration Pain, Severe (Pain Scale 7-10) Ceftriaxone Sodium 1 gm/ 50 mls @ 100 mls/hr 04/07/21 21:15 04/08/21 22:21 Sodium Chloride IV Infused Q24H KELLY Infusion Mirtazapine 15 mg 04/07/21 21:15 04/08/21 21:50 Mirtazapine 15 Mg Tablet PO 15 mg BEDTIME KELLY Administration Omeprazole 20 mg 04/08/21 06:30 04/09/21 16:31 Omeprazole 20 Mg Capsule.Dr PO 20 mg BID@0630,1630 KELLY Administration Ondansetron HCl 4 mg 04/07/21 21:09 Ondansetron Hcl 4 Mg/2 Ml Vial IVPUSH Q8H PRN Nausea and Vomiting Oxycodone HCl 5 mg 04/07/21 21:09 04/09/21 16:48 Oxycodone Hcl Immed Release 5 Mg Tablet PO 5 mg Q6H PRN Administration Pain Pharmacy Consult 1 each 04/07/21 14:01 Consult Rx Perform Med Rec MISCELLANE ONCE PRN Consult order Potassium Chloride 20 meq 04/08/21 09:00 04/09/21 09:29 Potassium Chloride Er 20 Meq Tab.Er.Prt PO 20 meq DAILY KELLY Administration Quetiapine Fumarate 50 mg 04/07/21 21:15 04/09/21 09:29 Quetiapine Fumarate 50 Mg Tablet PO 50 mg BID KELLY Administration Sodium Chloride 3 ml 04/08/21 00:00 04/09/21 16:31 0.9 % Sodium Chloride Flush 3 Ml Syringe IVFLUSH 3 ml QSHIFT KELLY Administration Home Medications Medication Instructions Recorded Confirmed Last Taken Type apixaban [Eliquis] 1 tab PO BID 04/07/21 04/07/21 Unknown History atorvastatin 1 tab PO DAILY 04/07/21 04/07/21 Unknown History cholestyramine-aspartame 1 packet PO BID 04/07/21 04/07/21 Unknown History [Cholestyramine Light] diltiazem HCl 1 tab PO BID 04/07/21 04/07/21 Unknown History furosemide 1 tab PO BID 04/07/21 04/07/21 Unknown History gabapentin 1 cap PO TID 04/07/21 04/07/21 Unknown History mirtazapine 1 tab PO BEDTIME 04/07/21 04/07/21 Unknown History oxycodone 1 tab PO Q6H PRN 04/07/21 04/07/21 Unknown History pantoprazole 1 tab PO BID 04/07/21 04/07/21 Unknown History potassium chloride 1 tab PO DAILY 04/07/21 04/07/21 Unknown History quetiapine 1 tab PO BID 04/07/21 04/07/21 Unknown History Physical Exam Vital Signs: Vital Signs: Last Vital Signs Temp 98.5 F 04/09/21 16:00 Pulse 76 04/09/21 16:00 Resp 16 04/09/21 16:00 BP 110/61 04/09/21 16:00 Pulse Ox 97 04/09/21 16:00 Body Mass Index 30.7 Const: General: cooperative, healthy appearing, comfortable and no acute distress Orientation/consciousness: patient oriented x3 HENMT: Face and sinus: Yes normal facial exam Mouth: moist mucous membranes Neck: Neck: Yes normal visual inspection, Yes full ROM and Yes trachea midline Chest: Chest palpation & inspection: normal inspection of the chest Resp: Effort & Inspection: normal respiratory effort, able to speak in complete sentences and no respiratory distress GI: Inspection: Yes normal to inspection Back/Spine/Pelvis: Cervical Spine: normal cervical lordosis Thoracic/Lumbar Spine: thoracic and lumbar spine normal to inspection Skin: General skin exam: no rashes or lesions noted Neuro: General: patient oriented x3, gait normal, tone normal and moves all extremities Extrem: General: Yes normal to inspection and Yes capillary refill normal Results Labs Result diagrams: 04/09/21 06:41 04/09/21 06:41 Labs: Abnormal lab results 04/07/21 04/09/21 04/09/21 Range/Units 14:18 06:41 06:41 RBC 2.78 L (4.60-5.80) X10*6/uL Hgb 8.5 L (14.0-18.0) g/dl Hct 25.6 L (42-52) % MPV 9.0 L (9.4-12.4) fL Anion Gap 10 L (12-20) Random Glucose 118 H (60-115) mg/dL Calcium 7.8 L (8.4-10.2) mg/dL Crossmatch See Detail Short CBC 04/09/21 Range/Units 06:41 WBC 10.8 (4.8-10.8) X10*3/uL Hgb 8.5 L (14.0-18.0) g/dl Hct 25.6 L (42-52) % Plt Count 235 (160-400) X10*3/uL BMP 04/09/21 06:41 Sodium 139 Potassium 3.4 Chloride 107 Carbon Dioxide 25 BUN 13 Creatinine 0.57 Calcium 7.8 L Urine 04/07/21 Range/Units 15:37 Urine Color RED Urine Appearance TURBID Urine pH 6.5 (5.0-8.0) Ur Specific [place] 1.010 (1.005-1.025) Urine Protein 2+ H (NEG-TRACE) MG/DL Urine Glucose (UA) NEG (NEG) MG/DL All other labs normal. Assessment and Plan (1) Gross hematuria: Status: Acute antibiotics reversal of anticoagulation Procedures Date of Service Date of Service: 04/09/21 Catheter Insertion (Urinary) Replacement of catheter present on admission: No Reason for placing: Acute urinary retention ( hematuria) Antiseptic solution prep: Povidone-Iodine Catheter type/location: 2-way Urethral Size (Angolan): 20
[2021-04-09 18:31] LABS: Hematocrit 27.3 % (42-52); Hemoglobin 8.9 g/dl (14.0-18.0); Mean Corpuscular HGB Conc 32.6 g/dl (31.0-36.0); Mean Corpuscular Hemoglobin 29.5 pg (27.0-33.0); Mean Corpuscular Volume 90.4 fL (80-98); Mean Platelet Volume 9.4 fL (9.4-12.4); Platelet Count 233 X10*3/uL (160-400); Red Blood Count 3.02 X10*6/uL (4.60-5.80); Red Cell Distribution Width 14.9 % (11.0-16.0); White Blood Count 9.7 X10*3/uL (4.8-10.8)
[2021-04-09] MEDS: Mirtazapine 15 MG TABLET PO (19:57)
[2021-04-09] MEDS: cefTRIAXone sodium 1 GM in 0.9 % Sodium Chloride 50 ML IV (19:58)
[2021-04-10] VITALS (8 sets, daily range): BP systolic 94–119; BP diastolic 46–62; PULSE 55–85; RESP 18–20; TEMP 36.6–37.7; O2SAT 93–97
[2021-04-10 05:09] LABS: Hematocrit 26.3 % (42-52); Hemoglobin 8.5 g/dl (14.0-18.0); Mean Corpuscular HGB Conc 32.3 g/dl (31.0-36.0); Mean Corpuscular Hemoglobin 29.3 pg (27.0-33.0); Mean Corpuscular Volume 90.7 fL (80-98); Mean Platelet Volume 9.6 fL (9.4-12.4); Platelet Count 233 X10*3/uL (160-400); Red Cell Distribution Width 14.9 % (11.0-16.0); White Blood Count 8.7 X10*3/uL (4.8-10.8)
[2021-04-10 05:35] LABS: Anion Gap 13 (12-20); Blood Urea Nitrogen 12 mg/dL (9-16); Calcium 7.8 mg/dL (8.4-10.2); Carbon Dioxide 23 mmol/L (22-29); Chloride 105 mmol/L (96-108); Creatinine Clr Calc Pharmacy 153.6; Estimated Glomerular Filt Rate > 60; Glucose Random 116 mg/dL (60-115); Potassium 3.4 mmol/L (3.3-5.1); Sodium 138 mmol/L (135-145)
[2021-04-10] MEDS: Atorvastatin Calcium 20 MG TABLET PO (08:49)
[2021-04-10] MEDS: Furosemide 20 MG TABLET PO ×2 (08:49→22:15)
[2021-04-10] MEDS: Gabapentin 100 MG CAPSULE PO ×3 (08:49→20:20)
[2021-04-10] MEDS: Omeprazole 20 MG CAPSULE.DR PO ×2 (08:50→16:01)
[2021-04-10] MEDS: dilTIAZem HCL 30 MG TABLET 90 MG PO ×2 (08:50→20:19)
[2021-04-10] MEDS: QUEtiapine Fumarate 50 MG TABLET PO ×2 (08:50→20:20)
[2021-04-10] MEDS: 0.9 % Sodium Chloride Flush 3 ML SYRINGE IVFLUSH ×3 (08:51→20:21)
[2021-04-10] MEDS: HYDROmorphone HCl 0.5 MG/0.5 ML SYRINGE IVPUSH (08:57)
[2021-04-10] MEDS: Morphine Sulfate 4 MG/ML CARTRIDGE 3 MG IVPUSH ×3 (12:07→20:20)
--- NOTE | 2021-04-10 15:02 | HO.PM.IMPN ---
Subjective Subjective Date of Service: 04/10/21 Interval History: The patient was seen and evaluated this morning Laying in bed, feels comfortable overall that Bloody drainage from the Napier catheter looks little better than yesterday Drop in hemoglobin to 8.5 Denies any fever, chills or shortness of breath No reported other overnight events. Systemic review: No fever, chills or weakness No chest pain, palpitation No shortness of breath or coughing No abdominal pain, nausea or vomiting Urine catheter in place No any rash or wounds Physical Exam Vital Signs: Vital Signs: Last Vital Signs Temp 98.7 F 04/10/21 13:59 Pulse 75 04/10/21 13:59 Resp 20 04/10/21 13:59 BP 119/62 04/10/21 13:59 Pulse Ox 97 04/10/21 07:14 Body Mass Index 30.7 Const: Other: Constitutional : Alert, oriented, in mild discomfort Neck : Normal inspection, Supple Cardiovascular : RRR, S1 S2, no lower extremity edema Respiratory : Good bilateral air entry, no crackles, wheezes or rhonchi Gastrointestinal: soft, lax, Normal bowel sounds, Non tender Skin : Warm/Dry, urine catheter in place with dark bloody drainage filling the urine bag Neurological : Alert & oriented x3, No focal deficit Muscular: Left above-knee amputation Objective Data Current Medications Generic Name Dose Route Start Last Admin Trade Name Kodakq PRN Reason Stop Dose Admin Acetaminophen 650 mg 04/07/21 21:09 Acetaminophen 325 Mg Tablet PO Q6H PRN Pain, Mild (Pain Scale 1-3) Atorvastatin Calcium 20 mg 04/08/21 09:00 04/10/21 08:49 Atorvastatin Calcium 20 Mg Tablet PO 20 mg DAILY KELLY Administration Diltiazem HCl 90 mg 04/08/21 09:00 04/10/21 08:50 Diltiazem Hcl 30 Mg Tablet PO 90 mg BID KELLY Administration Protocol Docusate Sodium 100 mg 04/07/21 21:09 Docusate Sodium 100 Mg Capsule PO DAILY PRN Constipation Furosemide 20 mg 04/08/21 09:00 04/10/21 08:49 Furosemide 20 Mg Tablet PO 20 mg BID KELLY Administration Protocol Gabapentin 100 mg 04/07/21 21:15 04/10/21 08:49 Gabapentin 100 Mg Capsule PO 100 mg TID KELLY Administration Ceftriaxone Sodium 1 gm/ 50 mls @ 100 mls/hr 04/07/21 21:15 04/09/21 21:05 Sodium Chloride IV Infused Q24H KELLY Infusion Mirtazapine 15 mg 04/07/21 21:15 04/09/21 19:57 Mirtazapine 15 Mg Tablet PO 15 mg BEDTIME KELLY Administration Morphine Sulfate 3 mg 04/10/21 10:36 04/10/21 12:07 Morphine Sulfate 4 Mg/Ml Cartridge IVPUSH 3 mg Q4H PRN Administration Pain, Severe (Pain Scale 7-10) Omeprazole 20 mg 04/08/21 06:30 04/10/21 08:50 Omeprazole 20 Mg Capsule. PO 20 mg BID@0630,1630 KELLY Administration Ondansetron HCl 4 mg 04/07/21 21:09 Ondansetron Hcl 4 Mg/2 Ml Vial IVPUSH Q8H PRN Nausea and Vomiting Oxycodone HCl 5 mg 04/07/21 21:09 04/09/21 16:48 Oxycodone Hcl Immed Release 5 Mg Tablet PO 5 mg Q6H PRN Administration Pain Pharmacy Consult 1 each 04/07/21 14:01 Consult Rx Perform Med Rec MISCELLANE ONCE PRN Consult order Potassium Chloride 20 meq 04/08/21 09:00 04/10/21 08:51 Potassium Chloride Er 20 Meq Tab.Er.Prt PO Not Given DAILY KELLY Quetiapine Fumarate 50 mg 04/07/21 21:15 04/10/21 08:50 Quetiapine Fumarate 50 Mg Tablet PO 50 mg BID KELLY Administration Sodium Chloride 3 ml 04/08/21 00:00 04/10/21 08:51 0.9 % Sodium Chloride Flush 3 Ml Syringe IVFLUSH 3 ml QSHIFT KELLY Administration Labs CBC & Chem 7: 04/10/21 04:14 04/10/21 04:14 Labs: Laboratory Results - last 24 hr 04/07/21 04/09/21 04/10/21 14:18 18:20 04:14 WBC 9.7 8.7 RBC 3.02 L 2.90 L Hgb 8.9 L 8.5 L Hct 27.3 L 26.3 L MCV 90.4 90.7 MCH 29.5 29.3 MCHC 32.6 32.3 RDW 14.9 14.9 Plt Count 233 233 MPV 9.4 9.6 Absolute Nucleated RBC 0.000 0.000 Nucleated RBC % (auto) 0.0 0.0 Sodium Potassium Chloride Carbon Dioxide Anion Gap BUN Creatinine Estim Creat Clear Calc Estimated GFR Random Glucose Calcium Blood Type B Positive Antibody Screen NEGATIVE Crossmatch See Detail 04/10/21 04:14 WBC RBC Hgb Hct MCV MCH MCHC RDW Plt Count MPV Absolute Nucleated RBC Nucleated RBC % (auto) Sodium 138 Potassium 3.4 Chloride 105 Carbon Dioxide 23 Anion Gap 13 BUN 12 Creatinine 0.48 L Estim Creat Clear Calc 153.6 Estimated GFR > 60 Random Glucose 116 H Calcium 7.8 L Blood Type Antibody Screen Crossmatch Microbiology Microbiology Results: Microbiology 04/08/21 12:35 Blood Culture - Preliminary Blood - Venous No growth after 48 hours. 04/08/21 12:30 Blood Culture - Preliminary Blood - Venous No growth after 48 hours. 04/07/21 14:30 Blood Culture - Preliminary Blood - Venous No growth after 48 hours. Quality Stroke Does the patient have a stroke diagnosis?: No VTE Prior VTE?: No VTE Risk Level:: Medical - moderate - high VTE Device Contraindication: N/A - Device Ordered VTE Drug Contraindication: Treatment Not Tolerated Assessment and Plan (1) Gross hematuria: Status: Acute (2) Anemia: Status: Acute Assessment and Plan: 65-year-old male with past medical history of AFib, paraplegia with chronic Napier catheter in place, chronic osteomyelitis, HTN, who presents to the hospital with complaints of hematuria. # gross hematuria secondary to Napier catheter, being on anticoagulation Received Kcentra and vitamin K Continue IV fluids Urology consult pending Urology recommended to hold on CBI yesterday # acute blood loss anemia Hemoglobin of dropped to 8.5 this morning from baseline of 13 previously Received total of 4 units, 2 extra prepared, to give 1 for now follow H&H post transfuse # Napier catheter related UTI Negative repeat blood cultures afebrile, no leukocytosis Continue ceftriaxone for UTI # AFib hold Eliquis continue diltiazem # GERD continue pantoprazole # hypertension stable continue diltiazem DVT prophylaxis SCDs in the setting of hematuria
--- NOTE | 2021-04-10 15:51 | PC.NURSE ---
Pt continues to have bloody urine with clots oozing from meatus cath hand irrigated new drain bag placed
[2021-04-10] MEDS: Mirtazapine 15 MG TABLET PO (20:20)
[2021-04-10] MEDS: cefTRIAXone sodium 1 GM in 0.9 % Sodium Chloride 50 ML IV (20:21)
--- NOTE | 2021-04-10 21:27 | P.PNUR_ITS ---
Subjective Subjective Date of Service: 04/10/21 Interval history: Persistent hematuria Original catheter removed Nursing staff unable to place 3 [address] catheter placed at bedside and 30 cc in balloon CBI started Difficult Napier Physical Exam Vital Signs: Vital Signs: Last Vital Signs Temp 97.9 F 04/10/21 19:39 Pulse 73 04/10/21 20:19 Resp 18 04/10/21 19:39 BP 107/60 04/10/21 20:19 Pulse Ox 95 04/10/21 19:39 Body Mass Index 30.7 Const: General: cooperative, healthy appearing, comfortable and no acute distress Orientation/consciousness: patient oriented x3 HENMT: Face and sinus: Yes normal facial exam Mouth: moist mucous membranes Neck: Neck: Yes normal visual inspection, Yes full ROM and Yes trachea midline Chest: Chest palpation & inspection: normal inspection of the chest Resp: Effort & Inspection: normal respiratory effort, able to speak in complete sentences and no respiratory distress GI: Inspection: Yes normal to inspection Back/Spine/Pelvis: Cervical Spine: normal cervical lordosis Thoracic/Lumbar Spine: thoracic and lumbar spine normal to inspection Skin: General skin exam: no rashes or lesions noted Neuro: General: patient oriented x3, gait normal, tone normal and moves all extremities Extrem: General: Yes normal to inspection and Yes capillary refill normal Urology Results Labs CBC & Chem 7: 04/10/21 04:14 04/10/21 04:14 Labs: Laboratory Results - last 24 hr 04/07/21 04/10/21 04/10/21 14:18 04:14 04:14 WBC 8.7 RBC 2.90 L Hgb 8.5 L Hct 26.3 L MCV 90.7 MCH 29.3 MCHC 32.3 RDW 14.9 Plt Count 233 MPV 9.6 Absolute Nucleated RBC 0.000 Nucleated RBC % (auto) 0.0 Sodium 138 Potassium 3.4 Chloride 105 Carbon Dioxide 23 Anion Gap 13 BUN 12 Creatinine 0.48 L Estim Creat Clear Calc 153.6 Estimated GFR > 60 Random Glucose 116 H Calcium 7.8 L Blood Type B Positive Antibody Screen NEGATIVE Crossmatch See Detail Progress Note: A&P Assessment and plan (1) Gross hematuria: Status: Acute Assessment and Plan: CBI started Three way catheter 22 Colombian placed Fall Risk Details Current Medications: Current Medications Generic Name Dose Route Start Last Admin Trade Name Freq PRN Reason Stop Dose Admin Acetaminophen 650 mg 04/07/21 21:09 Acetaminophen 325 Mg Tablet PO Q6H PRN Pain, Mild (Pain Scale 1-3) Atorvastatin Calcium 20 mg 04/08/21 09:00 04/10/21 08:49 Atorvastatin Calcium 20 Mg Tablet PO 20 mg DAILY KELLY Administration Diltiazem HCl 90 mg 04/08/21 09:00 04/10/21 20:19 Diltiazem Hcl 30 Mg Tablet PO 90 mg BID KELLY Administration Protocol Docusate Sodium 100 mg 04/07/21 21:09 Docusate Sodium 100 Mg Capsule PO DAILY PRN Constipation Furosemide 20 mg 04/08/21 09:00 04/10/21 08:49 Furosemide 20 Mg Tablet PO 20 mg BID KELLY Administration Protocol Gabapentin 100 mg 04/07/21 21:15 04/10/21 20:20 Gabapentin 100 Mg Capsule PO 100 mg TID KELLY Administration Ceftriaxone Sodium 1 gm/ 50 mls @ 100 mls/hr 04/07/21 21:15 04/10/21 20:21 Sodium Chloride IV 100 mls/hr Q24H KELLY Administration Mirtazapine 15 mg 04/07/21 21:15 04/10/21 20:20 Mirtazapine 15 Mg Tablet PO 15 mg BEDTIME KELLY Administration Morphine Sulfate 3 mg 04/10/21 10:36 04/10/21 20:20 Morphine Sulfate 4 Mg/Ml Cartridge IVPUSH 3 mg Q4H PRN Administration Pain, Severe (Pain Scale 7-10) Omeprazole 20 mg 04/08/21 06:30 04/10/21 16:01 Omeprazole 20 Mg Capsule. PO 20 mg BID@0630,1630 KELLY Administration Ondansetron HCl 4 mg 04/07/21 21:09 Ondansetron Hcl 4 Mg/2 Ml Vial IVPUSH Q8H PRN Nausea and Vomiting Oxycodone HCl 5 mg 04/07/21 21:09 04/09/21 16:48 Oxycodone Hcl Immed Release 5 Mg Tablet PO 5 mg Q6H PRN Administration Pain Pharmacy Consult 1 each 04/07/21 14:01 Consult Rx Perform Med Rec MISCELLANE ONCE PRN Consult order Potassium Chloride 20 meq 04/08/21 09:00 04/10/21 08:51 Potassium Chloride Er 20 Meq Tab.Er.Prt PO Not Given DAILY KELLY Quetiapine Fumarate 50 mg 04/07/21 21:15 04/10/21 20:20 Quetiapine Fumarate 50 Mg Tablet PO 50 mg BID KELLY Administration Sodium Chloride 3 ml 04/08/21 00:00 04/10/21 20:21 0.9 % Sodium Chloride Flush 3 Ml Syringe IVFLUSH 3 ml QSHIFT KELLY Administration Time Spent With Patient Time: Total time spent is greater than 50% in coordination of care (as docu mented) at patient's floor/unit and/or counseling patient: Time with patient: less than 15 minutes Urology Procedures Catheter Insertion (Urinary) Date of insertion: 04/10/21 Replacement of catheter present on admission: Yes Reason for placing: Acute urinary retention (Hematuria) Catheter type/location: 3-way Urethral Size (Colombian): 22 Catheter balloon size (mL): 30 Procedure performed: without complications Complications: Difficult Napier catheter placement urologist required Progress Note: Quality Stroke Does the patient have a stroke diagnosis?: No
[2021-04-10] MEDS: oxyCODONE HCl Immed Release 5 MG TABLET PO (22:15)
[2021-04-11] VITALS (9 sets, daily range): BP systolic 101–122; BP diastolic 52–67; PULSE 70–95; RESP 18–20; TEMP 36.1–37.2; O2SAT 94–97
[2021-04-11] MEDS: Morphine Sulfate 4 MG/ML CARTRIDGE 3 MG IVPUSH ×4 (02:55→20:54)
[2021-04-11] MEDS: oxyCODONE HCl Immed Release 5 MG TABLET PO ×2 (02:56→14:03)
[2021-04-11 05:20] LABS: Hematocrit 29.8 % (42-52); Hemoglobin 9.5 g/dl (14.0-18.0); Mean Corpuscular HGB Conc 31.9 g/dl (31.0-36.0); Mean Corpuscular Hemoglobin 29.8 pg (27.0-33.0); Mean Corpuscular Volume 93.4 fL (80-98); Mean Platelet Volume 10.3 fL (9.4-12.4); Platelet Count 220 X10*3/uL (160-400); Red Blood Count 3.19 X10*6/uL (4.60-5.80); White Blood Count 10.8 X10*3/uL (4.8-10.8)
[2021-04-11 05:44] LABS: Anion Gap 13 (12-20); Blood Urea Nitrogen 10 mg/dL (9-16); Calcium 7.9 mg/dL (8.4-10.2); Carbon Dioxide 24 mmol/L (22-29); Chloride 106 mmol/L (96-108); Creatinine Clr Calc Pharmacy 141.8; Estimated Glomerular Filt Rate > 60; Glucose Random 100 mg/dL (60-115); Potassium 3.5 mmol/L (3.3-5.1); Sodium 139 mmol/L (135-145)
--- NOTE | 2021-04-11 07:29 | PC.NURSE ---
04/10/21 7p-7a pt at beginning of shift without f/c & experiencing gross hematuria/retention. Dr. Jernigan aware and came in at approx 2130 & inserted Fr #22 3-way f/c - pt tolerated well. CBI begun and tolerated well, infusing initally wide open, then titrated to pale pink, tolerated well until 0300 pt c/o 10/10 bladder/groin pain. hand irrigated f/c for large clot & medicated with Morphine 3mg iv & roxicodone 5mg po. Immediate relief upon irrigation, tolerated well. CBI resumed & tolerated well through remainder of shift.
[2021-04-11] MEDS: Furosemide 20 MG TABLET PO ×2 (09:59→20:58)
[2021-04-11] MEDS: Gabapentin 100 MG CAPSULE PO ×3 (09:59→20:59)
[2021-04-11] MEDS: dilTIAZem HCL 30 MG TABLET 90 MG PO ×2 (09:59→20:59)
[2021-04-11] MEDS: Atorvastatin Calcium 20 MG TABLET PO (09:59)
[2021-04-11] MEDS: 0.9 % Sodium Chloride Flush 3 ML SYRINGE IVFLUSH ×3 (09:59→20:59)
[2021-04-11] MEDS: QUEtiapine Fumarate 50 MG TABLET PO ×2 (09:59→20:59)
--- NOTE | 2021-04-11 13:38 | P.PNIM_ITS ---
Subjective Subjective Date of Service: 04/11/21 Interval History: The patient was seen and evaluated this morning Laying in bed, feels comfortable overall that Patient on CBI, try to hold it but he developed clots so it was restarted hemoglobin to 9.5 Denies any fever, chills or shortness of breath No reported other overnight events. Systemic review: No fever, chills or weakness No chest pain, palpitation No shortness of breath or coughing No abdominal pain, nausea or vomiting Urine catheter in place No any rash or wounds Physical Exam Vital Signs: Vital Signs: Last Vital Signs Temp 97 F 04/11/21 11:07 Pulse 74 04/11/21 11:07 Resp 20 04/11/21 11:07 BP 102/57 L 04/11/21 11:07 Pulse Ox 96 04/11/21 11:07 Body Mass Index 30.7 Const: Other: Constitutional : Alert, oriented, in mild discomfort Neck : Normal inspection, Supple Cardiovascular : RRR, S1 S2, no lower extremity edema Respiratory : Good bilateral air entry, no crackles, wheezes or rhonchi Gastrointestinal: soft, lax, Normal bowel sounds, Non tender Skin : Warm/Dry, urine catheter in place with CBI Hoc and clear urine Neurological : Alert & oriented x3, No focal deficit Muscular: Left above-knee amputation Objective Data Current Medications Generic Name Dose Route Start Last Admin Trade Name Kodakq PRN Reason Stop Dose Admin Acetaminophen 650 mg 04/07/21 21:09 Acetaminophen 325 Mg Tablet PO Q6H PRN Pain, Mild (Pain Scale 1-3) Atorvastatin Calcium 20 mg 04/08/21 09:00 04/11/21 09:59 Atorvastatin Calcium 20 Mg Tablet PO 20 mg DAILY KELLY Administration Diltiazem HCl 90 mg 04/08/21 09:00 04/11/21 09:59 Diltiazem Hcl 30 Mg Tablet PO 90 mg BID KELLY Administration Protocol Docusate Sodium 100 mg 04/07/21 21:09 Docusate Sodium 100 Mg Capsule PO DAILY PRN Constipation Furosemide 20 mg 04/08/21 09:00 04/11/21 09:59 Furosemide 20 Mg Tablet PO 20 mg BID KELLY Administration Protocol Gabapentin 100 mg 04/07/21 21:15 04/11/21 09:59 Gabapentin 100 Mg Capsule PO 100 mg TID KELLY Administration Ceftriaxone Sodium 1 gm/ 50 mls @ 100 mls/hr 04/07/21 21:15 04/10/21 21:00 Sodium Chloride IV Infused Q24H KELLY Infusion Mirtazapine 15 mg 04/07/21 21:15 04/10/21 20:20 Mirtazapine 15 Mg Tablet PO 15 mg BEDTIME KELLY Administration Morphine Sulfate 3 mg 04/10/21 10:36 04/11/21 12:07 Morphine Sulfate 4 Mg/Ml Cartridge IVPUSH 3 mg Q4H PRN Administration Pain, Severe (Pain Scale 7-10) Omeprazole 20 mg 04/08/21 06:30 04/11/21 05:53 Omeprazole 20 Mg Capsule. PO Not Given BID@0630,1630 [facility] Ondansetron HCl 4 mg 04/07/21 21:09 Ondansetron Hcl 4 Mg/2 Ml Vial IVPUSH Q8H PRN Nausea and Vomiting Oxycodone HCl 5 mg 04/07/21 21:09 04/11/21 02:56 Oxycodone Hcl Immed Release 5 Mg Tablet PO 5 mg Q6H PRN Administration Pain Pharmacy Consult 1 each 04/07/21 14:01 Consult Rx Perform Med Rec MISCELLANE ONCE PRN Consult order Potassium Chloride 20 meq 04/08/21 09:00 04/11/21 10:00 Potassium Chloride Er 20 Meq Tab.Er.Prt PO Not Given DAILY KELLY Quetiapine Fumarate 50 mg 04/07/21 21:15 04/11/21 09:59 Quetiapine Fumarate 50 Mg Tablet PO 50 mg BID KELLY Administration Sodium Chloride 3 ml 04/08/21 00:00 04/11/21 09:59 0.9 % Sodium Chloride Flush 3 Ml Syringe IVFLUSH 3 ml QSHIFT KELLY Administration Labs CBC & Chem 7: 04/11/21 04:24 04/11/21 04:24 Labs: Laboratory Results - last 24 hr 04/07/21 04/11/21 04/11/21 14:18 04:24 04:24 WBC 10.8 RBC 3.19 L Hgb 9.5 L Hct 29.8 L MCV 93.4 MCH 29.8 MCHC 31.9 RDW 15.0 Plt Count 220 MPV 10.3 Absolute Nucleated RBC 0.000 Nucleated RBC % (auto) 0.0 Sodium 139 Potassium 3.5 Chloride 106 Carbon Dioxide 24 Anion Gap 13 BUN 10 Creatinine 0.52 Estim Creat Clear Calc 141.8 Estimated GFR > 60 Random Glucose 100 Calcium 7.9 L Crossmatch See Detail Microbiology Microbiology Results: Microbiology 04/08/21 12:35 Blood Culture - Preliminary Blood - Venous No growth after 48 hours. 04/08/21 12:30 Blood Culture - Preliminary Blood - Venous No growth after 48 hours. Quality Stroke Does the patient have a stroke diagnosis?: No VTE Prior VTE?: No VTE Risk Level:: Medical - moderate - high VTE Device Contraindication: N/A - Device Ordered VTE Drug Contraindication: Treatment Not Tolerated Assessment and Plan (1) Gross hematuria: Status: Acute (2) Anemia: Status: Acute Assessment and Plan: 65-year-old male with past medical history of AFib, paraplegia with chronic Napier catheter in place, chronic osteomyelitis, HTN, who presents to the hospital with complaints of hematuria. # gross hematuria secondary to Napier catheter, being on anticoagulation Received Kcentra and vitamin K Discontinue IV fluids Urology consult appreciated Urology recommended to start CBI wean clotting, try to hold it today but he started the bloating against with was held # acute blood loss anemia Hemoglobin improved to 9.5 today Received total of 5 units, extra 1 preferred follow H&H post transfuse # Napier catheter related UTI Negative repeat blood cultures afebrile, no leukocytosis Continue ceftriaxone for UTI day 5 # AFib hold Eliquis continue diltiazem # GERD continue pantoprazole # hypertension stable continue diltiazem DVT prophylaxis SCDs in the setting of hematuria
[2021-04-11] MEDS: Omeprazole 20 MG CAPSULE.DR PO (16:10)
[2021-04-11] MEDS: cefTRIAXone sodium 1 GM in 0.9 % Sodium Chloride 50 ML IV (20:52)
[2021-04-11] MEDS: Mirtazapine 15 MG TABLET PO (20:58)
[2021-04-12] VITALS (9 sets, daily range): BP systolic 90–151; BP diastolic 52–74; PULSE 65–85; RESP 16–18; TEMP 36.2–37.1; O2SAT 91–98
[2021-04-12 06:54] LABS: Hematocrit 28.7 % (42-52); Hemoglobin 9.2 g/dl (14.0-18.0); Mean Corpuscular HGB Conc 32.1 g/dl (31.0-36.0); Mean Corpuscular Hemoglobin 29.8 pg (27.0-33.0); Mean Corpuscular Volume 92.9 fL (80-98); Mean Platelet Volume 9.6 fL (9.4-12.4); Platelet Count 264 X10*3/uL (160-400); Red Blood Count 3.09 X10*6/uL (4.60-5.80); Red Cell Distribution Width 15.1 % (11.0-16.0); White Blood Count 8.2 X10*3/uL (4.8-10.8)
[2021-04-12] MEDS: QUEtiapine Fumarate 50 MG TABLET PO ×2 (08:04→22:06)
[2021-04-12] MEDS: 0.9 % Sodium Chloride Flush 3 ML SYRINGE IVFLUSH ×3 (08:04→22:07)
[2021-04-12] MEDS: dilTIAZem HCL 30 MG TABLET 90 MG PO ×2 (08:04→22:05)
[2021-04-12] MEDS: Morphine Sulfate 4 MG/ML CARTRIDGE 3 MG IVPUSH ×4 (08:05→22:07)
[2021-04-12] MEDS: Furosemide 20 MG TABLET PO ×2 (08:05→22:05)
[2021-04-12] MEDS: Atorvastatin Calcium 20 MG TABLET PO (08:05)
[2021-04-12] MEDS: Gabapentin 100 MG CAPSULE PO ×3 (08:05→22:06)
--- NOTE | 2021-04-12 12:11 | MHC.CLN ---
F/U PT WITH INCREASED NUTRITION RISK R/T PRESSURE INJURY DIET RX: REGULAR -APPROPRIATE RECOMMEND RE-STARTING ENSURE BID AND BELTRAN TO PROMOTE WOUND HEALING SUPPLEMENTS TO PROVIDE 860KCALS, 40G PROTEIN MONITOR PO INTAKE CLOSELY
--- NOTE | 2021-04-12 15:20 | MHC.CM.PN ---
per rounds dc plan is retrun to [facility] in 1 to 2 days
--- NOTE | 2021-04-12 15:50 | HO.PM.IMPN ---
Subjective Subjective Date of Service: 04/12/21 Interval History: The patient was seen and evaluated this morning Laying in bed, feels comfortable overall that Patient on CBI, will hold and monitor today hemoglobin to 9.2 Denies any fever, chills or shortness of breath No reported other overnight events. Systemic review: No fever, chills or weakness No chest pain, palpitation No shortness of breath or coughing No abdominal pain, nausea or vomiting Urine catheter in place No any rash or wounds Physical Exam Vital Signs: Vital Signs: Last Vital Signs Temp 98.8 F 04/12/21 15:14 Pulse 65 04/12/21 15:14 Resp 18 04/12/21 15:14 BP 109/62 04/12/21 15:14 Pulse Ox 97 04/12/21 15:14 Body Mass Index 30.7 Const: Other: Constitutional : Alert, oriented, in mild discomfort Neck : Normal inspection, Supple Cardiovascular : RRR, S1 S2, no lower extremity edema Respiratory : Good bilateral air entry, no crackles, wheezes or rhonchi Gastrointestinal: soft, lax, Normal bowel sounds, Non tender Skin : Warm/Dry, urine catheter in place with CBI Hoc and clear urine Neurological : Alert & oriented x3, No focal deficit Muscular: Left above-knee amputation Objective Data Current Medications Generic Name Dose Route Start Last Admin Trade Name Trinidad PRN Reason Stop Dose Admin Acetaminophen 650 mg 04/07/21 21:09 Acetaminophen 325 Mg Tablet PO Q6H PRN Pain, Mild (Pain Scale 1-3) Atorvastatin Calcium 20 mg 04/08/21 09:00 04/12/21 08:05 Atorvastatin Calcium 20 Mg Tablet PO 20 mg DAILY KELLY Administration Diltiazem HCl 90 mg 04/08/21 09:00 04/12/21 08:04 Diltiazem Hcl 30 Mg Tablet PO 90 mg BID KELLY Administration Protocol Docusate Sodium 100 mg 04/07/21 21:09 Docusate Sodium 100 Mg Capsule PO DAILY PRN Constipation Furosemide 20 mg 04/08/21 09:00 04/12/21 08:05 Furosemide 20 Mg Tablet PO 20 mg BID KELLY Administration Protocol Gabapentin 100 mg 04/07/21 21:15 04/12/21 08:05 Gabapentin 100 Mg Capsule PO 100 mg TID KELLY Administration Ceftriaxone Sodium 1 gm/ 50 mls @ 100 mls/hr 04/07/21 21:15 04/11/21 21:44 Sodium Chloride IV Infused Q24H KELLY Infusion Mirtazapine 15 mg 04/07/21 21:15 04/11/21 20:58 Mirtazapine 15 Mg Tablet PO 15 mg BEDTIME KELLY Administration Morphine Sulfate 3 mg 04/10/21 10:36 04/12/21 12:53 Morphine Sulfate 4 Mg/Ml Cartridge IVPUSH 3 mg Q4H PRN Administration Pain, Severe (Pain Scale 7-10) Omeprazole 20 mg 04/08/21 06:30 04/12/21 07:02 Omeprazole 20 Mg Capsule.Dr PO Not Given BID@0630,1630 [facility] Ondansetron HCl 4 mg 04/07/21 21:09 Ondansetron Hcl 4 Mg/2 Ml Vial IVPUSH Q8H PRN Nausea and Vomiting Oxycodone HCl 5 mg 04/07/21 21:09 04/11/21 14:03 Oxycodone Hcl Immed Release 5 Mg Tablet PO 5 mg Q6H PRN Administration Pain Pharmacy Consult 1 each 04/07/21 14:01 Consult Rx Perform Med Rec MISCELLANE ONCE PRN Consult order Potassium Chloride 20 meq 04/08/21 09:00 04/12/21 08:07 Potassium Chloride Er 20 Meq Tab.Er.Prt PO Not Given DAILY [facility] Quetiapine Fumarate 50 mg 04/07/21 21:15 04/12/21 08:04 Quetiapine Fumarate 50 Mg Tablet PO 50 mg BID KELLY Administration Sodium Chloride 3 ml 04/08/21 00:00 04/12/21 08:04 0.9 % Sodium Chloride Flush 3 Ml Syringe IVFLUSH 3 ml QSHIFT [facility] Administration Labs CBC & Chem 7: 04/12/21 05:34 04/11/21 04:24 Labs: Laboratory Results - last 24 hr 04/12/21 05:34 WBC 8.2 RBC 3.09 L Hgb 9.2 L Hct 28.7 L MCV 92.9 MCH 29.8 MCHC 32.1 RDW 15.1 Plt Count 264 MPV 9.6 Absolute Nucleated RBC 0.000 Nucleated RBC % (auto) 0.0 Quality Stroke Does the patient have a stroke diagnosis?: No VTE Prior VTE?: No VTE Risk Level:: Medical - moderate - high VTE Device Contraindication: N/A - Device Ordered VTE Drug Contraindication: Treatment Not Tolerated Assessment and Plan (1) Gross hematuria: Status: Acute (2) Anemia: Status: Acute Assessment and Plan: 65-year-old male with past medical history of AFib, paraplegia with chronic Napier catheter in place, chronic osteomyelitis, HTN, who presents to the hospital with complaints of hematuria. # gross hematuria secondary to Napier catheter, being on anticoagulation Received Kcentra and vitamin K Discontinue IV fluids Not sure where is the source of the bleeding as no intervention was done to investigate that yet Urology following, weight 2 days before starting blood thinners CBI when clotting, try to hold it today # acute blood loss anemia Hemoglobin improved to 9.2 today Received total of 5 units follow H&H post transfuse # Napier catheter related UTI Negative repeat blood cultures afebrile, no leukocytosis Continue ceftriaxone for UTI day 6 # AFib hold Eliquis continue diltiazem # GERD continue pantoprazole # hypertension stable continue diltiazem DVT prophylaxis SCDs in the setting of hematuria
[2021-04-12] MEDS: Omeprazole 20 MG CAPSULE.DR PO (18:07)
[2021-04-12] MEDS: Mirtazapine 15 MG TABLET PO (22:06)
[2021-04-12] MEDS: cefTRIAXone sodium 1 GM in 0.9 % Sodium Chloride 50 ML IV (22:07)
[2021-04-13] VITALS (9 sets, daily range): BP systolic 95–129; BP diastolic 54–70; PULSE 51–78; RESP 16–20; TEMP 36.3–37.2; O2SAT 92–98
[2021-04-13 06:04] LABS: Hematocrit 29.8 % (42-52); Hemoglobin 9.3 g/dl (14.0-18.0); Mean Corpuscular HGB Conc 31.2 g/dl (31.0-36.0); Mean Corpuscular Hemoglobin 29.1 pg (27.0-33.0); Mean Corpuscular Volume 93.1 fL (80-98); Mean Platelet Volume 9.6 fL (9.4-12.4); Platelet Count 287 X10*3/uL (160-400); White Blood Count 8.9 X10*3/uL (4.8-10.8)
[2021-04-13] MEDS: Omeprazole 20 MG CAPSULE.DR PO ×2 (06:24→16:08)
[2021-04-13] MEDS: Gabapentin 100 MG CAPSULE PO ×3 (08:58→20:23)
[2021-04-13] MEDS: Furosemide 20 MG TABLET PO ×2 (08:58→22:46)
[2021-04-13] MEDS: Atorvastatin Calcium 20 MG TABLET PO (08:58)
[2021-04-13] MEDS: dilTIAZem HCL 30 MG TABLET 90 MG PO ×2 (08:58→22:46)
[2021-04-13] MEDS: 0.9 % Sodium Chloride Flush 3 ML SYRINGE IVFLUSH ×3 (08:58→20:23)
[2021-04-13] MEDS: Morphine Sulfate 4 MG/ML CARTRIDGE 3 MG IVPUSH ×3 (08:58→17:04)
[2021-04-13] MEDS: QUEtiapine Fumarate 50 MG TABLET PO ×2 (08:58→20:23)
--- NOTE | 2021-04-13 11:20 | PC.NURSE ---
Skin/Wound assessment completed today. Patient has a chronic Stage 3 pressure ulcer being treated with silver alginate and covered with foam. Healed pink skin on buttocks. Patient also has an colostomy draining dark loose stool, bag intact.
--- NOTE | 2021-04-13 14:43 | P.PNIM_ITS ---
Subjective Subjective Date of Service: 04/13/21 Interval History: Seen in f/u for hematuria, hematuria seems to be resolving, there is still some residual clots in the floey, and c/o of some groin pain Systemic review: No fever, chills or weakness No chest pain, palpitation No shortness of breath or coughing No abdominal pain, nausea or vomiting Urine catheter in place No any rash or wounds Physical Exam Vital Signs: Vital Signs: Last Vital Signs Temp 97.6 F 04/13/21 11:55 Pulse 72 04/13/21 12:46 Resp 19 04/13/21 11:55 BP 116/62 04/13/21 12:46 Pulse Ox 98 04/13/21 11:55 Body Mass Index 30.7 Const: Other: Constitutional : Alert, oriented, in mild discomfort Neck : Normal inspection, Supple Cardiovascular : RRR, S1 S2, no lower extremity edema Respiratory : Good bilateral air entry, no crackles, wheezes or rhonchi Gastrointestinal: soft, lax, Normal bowel sounds, Non tender Skin : Warm/Dry, urine catheter in place with CBI Hoc and clear urine Neurological : Alert & oriented x3, No focal deficit Muscular: Left above-knee amputation Objective Data Current Medications Generic Name Dose Route Start Last Admin Trade Name Freq PRN Reason Stop Dose Admin Acetaminophen 650 mg 04/07/21 21:09 Acetaminophen 325 Mg Tablet PO Q6H PRN Pain, Mild (Pain Scale 1-3) Atorvastatin Calcium 20 mg 04/08/21 09:00 04/13/21 08:58 Atorvastatin Calcium 20 Mg Tablet PO 20 mg DAILY KELLY Administration Diltiazem HCl 90 mg 04/08/21 09:00 04/13/21 08:58 Diltiazem Hcl 30 Mg Tablet PO 90 mg BID KELLY Administration Protocol Docusate Sodium 100 mg 04/07/21 21:09 Docusate Sodium 100 Mg Capsule PO DAILY PRN Constipation Furosemide 20 mg 04/08/21 09:00 04/13/21 08:58 Furosemide 20 Mg Tablet PO 20 mg BID KELLY Administration Protocol Gabapentin 100 mg 04/07/21 21:15 04/13/21 08:58 Gabapentin 100 Mg Capsule PO 100 mg TID KELLY Administration Ceftriaxone Sodium 1 gm/ 50 mls @ 100 mls/hr 04/07/21 21:15 04/12/21 22:40 Sodium Chloride IV Infused Q24H KELLY Infusion Mirtazapine 15 mg 04/07/21 21:15 04/12/21 22:06 Mirtazapine 15 Mg Tablet PO 15 mg BEDTIME KELLY Administration Morphine Sulfate 3 mg 04/10/21 10:36 04/13/21 12:40 Morphine Sulfate 4 Mg/Ml Cartridge IVPUSH 3 mg Q4H PRN Administration Pain, Severe (Pain Scale 7-10) Omeprazole 20 mg 04/08/21 06:30 04/13/21 06:24 Omeprazole 20 Mg Capsule.Dr PO 20 mg BID@4282,8730 KELLY Administration Ondansetron HCl 4 mg 04/07/21 21:09 Ondansetron Hcl 4 Mg/2 Ml Vial IVPUSH Q8H PRN Nausea and Vomiting Pharmacy Consult 1 each 04/07/21 14:01 Consult Rx Perform Med Rec MISCELLANE ONCE PRN Consult order Potassium Chloride 20 meq 04/08/21 09:00 04/13/21 09:07 Potassium Chloride Er 20 Meq Tab.Er.Prt PO Not Given DAILY KELLY Quetiapine Fumarate 50 mg 04/07/21 21:15 04/13/21 08:58 Quetiapine Fumarate 50 Mg Tablet PO 50 mg BID KELLY Administration Sodium Chloride 3 ml 04/08/21 00:00 04/13/21 08:58 0.9 % Sodium Chloride Flush 3 Ml Syringe IVFLUSH 3 ml QSHIFT KELLY Administration Labs CBC & Chem 7: 04/13/21 05:24 04/11/21 04:24 Labs: Laboratory Results - last 24 hr 04/13/21 05:24 WBC 8.9 RBC 3.20 L Hgb 9.3 L Hct 29.8 L MCV 93.1 MCH 29.1 MCHC 31.2 RDW 15.0 Plt Count 287 MPV 9.6 Absolute Nucleated RBC 0.000 Nucleated RBC % (auto) 0.0 Microbiology Microbiology Results: Microbiology 04/08/21 12:35 Blood Culture - Final Blood - Venous No growth after 5 days. 04/08/21 12:30 Blood Culture - Final Blood - Venous No growth after 5 days. 04/07/21 14:30 Blood Culture - Final Blood - Venous No growth after 5 days. Quality Stroke Does the patient have a stroke diagnosis?: No VTE Prior VTE?: No VTE Risk Level:: Medical - moderate - high VTE Device Contraindication: N/A - Device Ordered VTE Drug Contraindication: Treatment Not Tolerated Assessment and Plan (1) Gross hematuria: Status: Acute (2) Anemia: Status: Acute Assessment and Plan: 65-year-old male with past medical history of AFib, paraplegia with chronic Napier catheter in place, chronic osteomyelitis, HTN, who presents to the [facility] with complaints of hematuria. # gross hematuria secondary to Napier catheter, being on anticoagulation Received Kcentra and vitamin K Discontinue IV fluids Not sure where is the source of the bleeding as no intervention was done to investigate that yet Urology following, weight 1more day before starting blood thinners CBI when clotting, try to hold it today # acute blood loss anemia Hemoglobin improved to 9.2 today Received total of 5 units follow H&H post transfuse # Napier catheter related UTI Negative repeat blood cultures afebrile, no leukocytosis Continue ceftriaxone for UTI day7, # AFib hold Eliquis, restart tomorrow continue diltiazem # GERD continue pantoprazole # hypertension stable continue diltiazem DVT prophylaxis SCDs in the setting of hematuria DC to SNF tomorrow
[2021-04-13] MEDS: Acetaminophen 325 MG TABLET 650 MG PO (16:07)
[2021-04-13] MEDS: Mirtazapine 15 MG TABLET PO (20:23)
[2021-04-13] MEDS: cefTRIAXone sodium 1 GM in 0.9 % Sodium Chloride 50 ML IV (20:23)
[2021-04-14 03:35] VITALS: BP 107/56; PULSE 74; RESP 18; TEMP 36.6; O2SAT 94
[2021-04-14] MEDS: Omeprazole 20 MG CAPSULE.DR PO (06:01)
[2021-04-14 07:46] VITALS: BP 115/60; PULSE 63; RESP 18; TEMP 36.8; O2SAT 99
[2021-04-14] MEDS: 0.9 % Sodium Chloride Flush 3 ML SYRINGE IVFLUSH (09:54)
[2021-04-14] MEDS: Furosemide 20 MG TABLET PO (09:54)
[2021-04-14] MEDS: Atorvastatin Calcium 20 MG TABLET PO (09:54)
[2021-04-14] MEDS: Gabapentin 100 MG CAPSULE PO ×2 (09:54→14:02)
[2021-04-14] MEDS: Potassium Chloride ER 20 MEQ TAB.ER.PRT PO (09:54)
[2021-04-14 09:55] VITALS: BP 115/60
[2021-04-14] MEDS: dilTIAZem HCL 30 MG TABLET 90 MG PO (09:55)
[2021-04-14] MEDS: QUEtiapine Fumarate 50 MG TABLET PO (09:55)
[2021-04-14] MEDS: Morphine Sulfate 4 MG/ML CARTRIDGE 3 MG IVPUSH ×2 (09:58→14:02)
[2021-04-14 10:53] VITALS: BP 119/67; PULSE 78; RESP 19; TEMP 37.2; O2SAT 97
--- NOTE | 2021-04-14 11:09 | PM.DS ---
DS: Providers Provider Date of Service: 04/14/21 Date of admission: 04/07/21 21:07 Primary care physician: Unknown Physician Consults: 04/08/21 08:37 Consult to Urology Routine Consulting Provider: Dhruv Thurston Reason for consultation: Hematuria for your eval DS: Diagnosis Discharge Diagnosis (1) Gross hematuria: Status: Acute (2) Anemia: Status: Acute DS: Medications Discharge Medications Home Medications: Home Medications Medication Instructions Recorded Confirmed apixaban [Eliquis] 1 tab PO BID 04/07/21 04/07/21 atorvastatin 1 tab PO DAILY 04/07/21 04/07/21 cholestyramine-aspartame 1 packet PO BID 04/07/21 04/07/21 [Cholestyramine Light] diltiazem HCl 1 tab PO BID 04/07/21 04/07/21 furosemide 1 tab PO BID 04/07/21 04/07/21 gabapentin 1 cap PO TID 04/07/21 04/07/21 mirtazapine 1 tab PO BEDTIME 04/07/21 04/07/21 oxycodone 1 tab PO Q6H PRN 04/07/21 04/07/21 pantoprazole 1 tab PO BID 04/07/21 04/07/21 potassium chloride 1 tab PO DAILY 04/07/21 04/07/21 quetiapine 1 tab PO BID 04/07/21 04/07/21 DS: Summary Hospital Course Hospital Course: Chief Complaint: hematuria This is a 65-year-old male with past medical history of osteomyelitis, AFib, on Eliquis, hypertension, colostomy( per patient due to nonhealing sacral wound), BKA, depression, paraplegia, chronic indwelling Barth catheter who presents from [facility] for hematuria. Patient reports that it started this morning, associated with suprapubic pain, urinary retention, no fever no chills, no flank pain. Patient does report that he was otherwise in good health up until this morning, did not have any hematuria the day prior,, currently denies any chest pain, no abdominal pain, patient is paraplegic and is usually bedbound. Review of systems otherwise negative On arrival to the ED patient hemodynamically stable with no significant abnormal vitals Labs are significant for 11.1, hemoglobin of 9.7, hematocrit of 30.6, prothrombin time of 17.6, INR of 1.5, lactic acid of 2.4 that improved with IV fluids, magnesium of 1.4, albumin of 2.9, UA positive for leukocyte Estrace and WBC, Patient was found to have a large clot at the meatus and the Barth was changed in the ED. CT abdomen showed blood products in the bladder as well as TURP defect within the prostate, and other chronic findings including chronic aortic dissection and chronic osteomyelitis near the ischial bones. Urology was consulted by ED and will see patient in the morning. Hospital course: # gross hematuria--Unclear etiology but thought that maybe due to trauma from barth. He was on CBI and treated with Kcentra and Vitamin K and bleeding has stopped. He was seen by urology and recommended to wait several days before starting anticoagulation and therefore will restart eliquis today and there has not been further bleeding, I discuss with patient that if bleeding recurn alternate anticoagulation such as coumadin maybe use, but for now prefer NOAC # acute blood loss anemia--hematocrit was 30 on April 08 and drop to 25 the next day, was transfused with 5 units and Hematocrit is now 29 and has been stable, no further bleeding # Barth catheter related UTI--culture has been negative, treated for 7 days with Ceftriaxone , no further antibiotics indiccated # AFib--continue ditiazem and restarted on Eliquis # GERD continue pantoprazole # Hypertension--continue Diltiazem Final Diagnosis: Gross hematuria Acute blood loss anemia UTI due to chronic barth catheter GERD AFIB Time Spent with Patient Time attestation: Total time spent providing and/or coordinating discharge services: Discharge coordination time: Greater than 30 minutes Quality: Stroke Does the patient have a stroke diagnosis?: No Physical Exam Vital Signs: Vital Signs: Last Vital Signs Temp 98.9 F 04/14/21 10:53 Pulse 78 04/14/21 10:53 Resp 19 04/14/21 10:53 BP 119/67 04/14/21 10:53 Pulse Ox 97 04/14/21 10:53 Body Mass Index 30.7 Const: Other: General: AO X 3, no acute distress Resp: CTA bilateral CVS: S1,S2,RRR GI: +BS, NT, no distention :Barth in place, clear Skin: No rash Neuro: motor grossly intact Psych: appropriate affect Discharge Plan Discharge Anticipated Discharge Date/Time: 04/14/21 11:07 Patient Disposition: er [facility] Discharge Diagnosis: Hematuria Referrals: SUSANNE GORDON [Other] - 1 Week Physician,Unknown [Primary Care Provider] - 1 Week Discharge Medications: Continued atorvastatin 20 mg tablet 1 tab PO DAILY RF: 0 potassium chloride 20 mEq tablet,ER particles/crystals 1 tab PO DAILY RF: 0 pantoprazole 40 mg tablet,delayed release (DR/EC) 1 tab PO BID RF: 0 furosemide 20 mg tablet 1 tab PO BID RF: 0 mirtazapine 15 mg tablet 1 tab PO BEDTIME RF: 0 gabapentin 100 mg capsule 1 cap PO TID RF: 0 oxycodone 5 mg tablet 1 tab PO Q6H PRN (Reason: Pain) RF: 0 diltiazem HCl 90 mg tablet 1 tab PO BID RF: 0 Cholestyramine Light 4 gram powder in packet 1 packet PO BID RF: 0 quetiapine 50 mg tablet 1 tab PO BID RF: 0 Eliquis 5 mg tablet 1 tab PO BID RF: 0 Discharge Orders: Discharge Order (Routine); Ordered 04/14/21 Ordered By: Amado Urena Diet: advance to usual diet and diabetic diet Activity on Discharge: As tolerated Stand Alone Forms: Patient Portal Discharge page Care Plan Goals: prevent rehospitalization from hematuria Health Concerns: gross hematuria Plan of Treatment: Close monitoring for recurrent hematuria while you are back on the blood thiner, if bleeding recur, use of blood thiner may need to reconsider next eliquis in 12 hours or tomorrow morning Assessment: as above
[2021-04-14] MEDS: Apixaban 5 MG TABLET PO (12:13)
--- NOTE | 2021-04-14 12:20 | MHC.CM.PN ---
PT HAS CHOSEN TO RETURN TO [facility] HE IS LEAVING at 2:30 pt aware as is staff
[2021-04-14 12:40] LABS: COVID-19 Test Negative (Negative)
== END 2021-04-14 15:00 | disposition skilled nursing facility (03) | DRG 699 ==
LOC: HO.ED 18:29 → HO.EDOVER 21:35 → HO.IMC 23:31
PROVIDERS: Physician Assistant; Student in an Organized Health Care Education/Training Program; Urology; Admitting Provider Internal Medicine; Emergency Provider Emergency Medicine; Visit Provider Internal Medicine
DX: T83.511A Infection and inflammatory reaction due to indwelling urethral catheter, initial encounter (principal); D62 Acute posthemorrhagic anemia; F32.9 Major depressive disorder, single episode, unspecified; N39.0 Urinary tract infection, site not specified; I48.91 Unspecified atrial fibrillation; R31.0 Gross hematuria; K21.9 Gastro-esophageal reflux disease without esophagitis; I10 Essential (primary) hypertension; T45.515A Adverse effect of anticoagulants, initial encounter; Y92.9 Unspecified place or not applicable; Z93.3 Colostomy status; Z86.16 Personal history of COVID-19; Z20.822 Contact with and (suspected) exposure to COVID-19; Z79.01 Long term (current) use of anticoagulants; Z79.899 Other long term (current) drug therapy
CPT/HCPCS: 36415; 74176; 76857; 80048; 80076; 81001; 81003; 83605; 83690; 83735; 85025; 85027; 85610; 85730; 86850; 86900; 86901; 86920; 86923; 87040; 87086; 87147; 87205; 87635; 93005; 99285; J0696; J1170; J2270; J3010; J3430; J3475; J7168; P9016

== ENCOUNTER 2021-07-02 13:01 | Inpatient (IN) | payer MEDICARE, MEDICAID, SELFPAY ==
[2021-07-02] VITALS (8 sets, daily range): BP systolic 80–144; BP diastolic 40–76; PULSE 68–96; RESP 16–20; TEMP 36.2; O2SAT 85–98; BMI 27.4
--- NOTE | ~2021-07-02 | XR_ITS ---
EXAMINATION: XR CHEST CLINICAL INFORMATION: Low oxygen saturation COMPARISON: Previous chest x-ray most recent January 2019 TECHNIQUE: Frontal view of the chest was obtained. FINDINGS: The cardiac silhouette is enlarged but stable. Aortic arch is dilated. This measures approximately 6.7 cm by chest x-ray. This is not appreciably changed. Hilar and mediastinal contours are otherwise unremarkable. There is atelectasis or small infiltrate at the right lung base. The lungs are otherwise clear. There is no pleural effusion or pneumothorax. There are degenerative changes of the spine and at the shoulder joints. XR/XR chest 1V IMPRESSION: Stable enlargement of cardiac silhouette. Stable enlargement of the aortic arch. Atelectasis or small infiltrate at the right lung base.
--- NOTE | 2021-07-02 13:39 | ED.GENADULT ---
HPI - General Adult General Chief complaint: Urogenital-Male Stated complaint: groin pain Time Seen by Provider: 07/02/21 13:27 Source: patient Limitations: no limitations History of Present Illness HPI narrative: This is a 65-year-old male who is bed-bound, currently living at home after being discharged from [facility] about 3 weeks ago. The patient has a known sacral decubitus ulcer for which she is getting home care. He notes pain around his penis and scrotum for several days. He has also noted that the urine coming out of his Napier is dark in color. He denies any fever. Denies any nausea or vomiting. Denies any chest pain, cough, shortness of breath. He endorses mild lower abdominal pain, especially pain around his penis and scrotum. He notes a history of left leg amputations secondary to abdominal aortic aneurysm Related Data Home Medications Medication Instructions Recorded Confirmed apixaban 5 mg tablet (Eliquis) 1 tab PO BID 04/07/21 07/02/21 atorvastatin 20 mg tablet 1 tab PO DAILY 04/07/21 07/02/21 cholestyramine-aspartame 4 gram 1 packet PO BID 04/07/21 07/02/21 oral powder for susp in a packet (Cholestyramine Light) furosemide 20 mg tablet 1 tab PO BID 04/07/21 07/02/21 mirtazapine 15 mg tablet 1 tab PO BEDTIME 04/07/21 07/02/21 oxycodone 5 mg tablet 1 tab PO Q6H PRN 04/07/21 07/02/21 pantoprazole 40 mg tablet,delayed 1 tab PO BID 04/07/21 07/02/21 release quetiapine 50 mg tablet 1 tab PO BID 04/07/21 07/02/21 diltiazem HCl 180 mg 1 cap PO DAILY 07/02/21 07/02/21 capsule,extended release 24 hr fluoxetine 20 mg capsule 1 cap PO QAM 07/02/21 07/02/21 gabapentin 800 mg tablet 1 tab PO TID 07/02/21 07/02/21 lisinopril 5 mg tablet 1 tab PO DAILY 07/02/21 07/02/21 metoprolol tartrate 25 mg tablet 0.5 tab PO BID 07/02/21 07/02/21 multivitamin 1 tab PO DAILY 07/02/21 07/02/21 Previous Rx's Medication Instructions Recorded cefdinir 300 mg capsule 300 mg PO BID #14 cap 07/02/21 Allergies Allergy/AdvReac Type Severity Reaction Status Date / Time No Known Allergies Allergy Unverified 06/11/20 15:43 [No Known Allergies*] Review of Systems Review of Systems: Yes all other systems are reviewed and are negative Constitutional: Constitutional: Reports as per HPI and Denies fever(s) Eyes: Eyes: Reports as per HPI and Reports no additional eye complaints ENT: Reports system reviewed and no additional complaints, except as documented, Reports as per HPI, Denies nasal congestion, Denies nasal discharge and Denies sore throat Cardiovascular: Cardiovascular: Reports as per HPI, Denies chest pain and Denies dyspnea Respiratory: Respiratory: Reports as per HPI, Denies cough and Denies dyspnea Gastrointestinal: Gastrointestinal: Reports as per HPI, Denies abdominal pain, Denies diarrhea, Denies vomiting and Reports other (Note colostomy bag is full) Genitourinary: Genitourinary: Reports as per HPI, Reports hematuria (Purple colored urine), Reports genital pain and Denies urinary frequency Musculoskeletal: Musculoskeletal: Reports as per HPI Integumentary/Breasts: Skin/Breast: Reports as per HPI Neurologic: Reports as per HPI, Denies focal weakness and Denies Sensory deficit (Neuro) Psychiatric: Psychiatric: Reports no additional psychiatric complaints and Reports as per HPI Endocrine: Endocrine: Reports no additional endocrine complaints and Reports as per HPI Hematologic/Lymphatic: Hematologic/Lymphatic: Reports no additional hematologic/lymphatic complaints, Reports as per HPI and Reports other (No peripheral edema) PMFSH Past Medical History Medical History Acute osteomyelitis Atrial fibrillation Colostomy complication COVID Embolism Encounter for surgical aftercare following surgery of digestive system Essential hypertension Major depressive disorder Muscle weakness Paraplegia Surgical History Hx of BKA Social History Social History Household Members: Family Housing: Other Housing Other:: Pt comes from [facility] Do you presently have visiting nurse or other home services: Yes Alcohol intake: never Patient Tobacco Use Status: Never used Tobacco Advance Directives: No Advance Directives Information Provided: Yes service: No Current occupational status: disabled Physical Exam Vital Signs: Vital Signs: Last Vital Signs Temp 97.1 F 07/02/21 13:43 Pulse 95 07/02/21 13:43 Resp 16 07/02/21 14:29 BP 137/73 07/02/21 13:43 Pulse Ox 98 07/02/21 13:43 Body Mass Index 27.4 Const: Other: Patient in no distress, somewhat pale appearing, moderately obese General: cooperative, no acute distress and alert Orientation/consciousness: patient oriented x3 HENMT: Head: Yes normal to inspection Eyes: General: appearance normal, both eyes and all related structures Eyelids: Yes eyelids normal Conjunctivae: conjunctivae normal Pupils: Equal, round and reactive pupils present Neck: Neck: Yes normal visual inspection and Yes supple Chest: Chest palpation & inspection: normal inspection of the chest Resp: Effort & Inspection: normal respiratory effort Auscultation: clear to auscultation bilaterally Cardio: Rate: regular rate Rhythm: regular rhythm Heart sounds: S1 normal heart sound present, S2 normal heart sound present, no gallops, no murmurs and no rubs GI: Other: Mild mid lower abdominal tenderness Palpation (GI): Soft to palpation, nontender and Other GI palpation findings present (Non-distended) Auscultation: normal bowel sounds : Other: Napier catheter diffusely coated with dense purple material. Urine in the bag is also purple in color. Male General Exam: Yes normal external exam Penis: normal penis Scrotum: scrotum normal Back/Spine/Pelvis: Other: Large sacral decubitus ulcer, with old dressing in place, no ar purulent discharge or localized erythema but area of ulceration is large, stage III Skin: General skin exam: no rashes or lesions noted Neuro: General: patient oriented x3, no focal motor deficits and CN's II-XI intact bilaterally Cranial nerves: Yes Equal, round and reactive pupils present Cognition (Neuro): normal cognition Motor exam (neuro): 5/5 motor strength present throughout Sensory Exam: No Sensory deficit (Neuro) Extrem: General: Yes normal to inspection and Yes no pedal edema Psych: Appearance: grossly normal Affect: normal affect Medical Decision Making MDM Narrative Medical decision making narrative: Patient with a chronic decubitus ulcer, came in for apparent blockage of his Napier catheter, which was removed. Attempt was made to replace the catheter with a 20 Polish coude catheter by this ED MD, without success. Dr. Thurston was called in to place the catheter was able to, over a wire. Patient does have evidence of UTI and is being treated with Rocephin 1 g IV. 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 Patient has many chronic issues, is not acutely ill but will be held in the ED pending completion of case management evaluation tomorrow so that confirmed home nursing can be set up for the patient. Lab Data Lab results reviewed: Yes I reviewed the patient's lab results. Result diagrams: 07/02/21 14:22 07/02/21 14:23 Labs: Lab Results 07/02/21 07/02/21 07/02/21 Range/Units 14:22 14:23 20:11 WBC 8.7 (4.8-10.8) X10*3/uL RBC 4.33 L D (4.60-5.80) X10*6/uL Hgb 12.0 L D (14.0-18.0) g/dl Hct 37.6 L D (42-52) % MCV 86.8 (80-98) fL MCH 27.7 (27.0-33.0) pg MCHC 31.9 (31.0-36.0) g/dl RDW 16.1 H (11.0-16.0) % Plt Count 364 D (160-400) X10*3/uL MPV 9.1 L (9.4-12.4) fL Immature Gran % (Auto) 0.5 H (0.0-0.4) % Neut % (Auto) 74.2 H (45-73) % Lymph % (Auto) 16.2 L (20-40) % [place] % (Auto) 6.3 (2-11) % Eos % (Auto) 2.3 (0-4) % Baso % (Auto) 0.5 (0-2) % Lymph # (Auto) 1.4 (1.2-4.9) X10*3/uL [place] # (Auto) 0.6 (0.1-1.2) X10*3/uL Eos # (Auto) 0.2 (0.0-0.4) X10*3/uL Baso # (Auto) 0.0 (0.0-0.2) X10*3/uL Abs Immat Gran (auto) 0.04 H (0.00-0.03) X10*3/uL Absolute Neuts (auto) 6.5 (2.0-8.3) X10*3/uL Absolute Nucleated RBC 0.000 (0.0-0.012) X10*3/uL Nucleated RBC % (auto) 0.0 (0.0-0.2) /100WBC Sodium 140 (135-145) mmol/L Potassium 4.1 (3.3-5.1) mmol/L Chloride 103 (96-108) mmol/L Carbon Dioxide 27 (22-29) mmol/L Anion Gap 14 (12-20) BUN 15 (9-16) mg/dL Creatinine 0.62 (0.5-1.4) mg/dL Estim Creat Clear Calc 113.0 Estimated GFR > 60 Random Glucose 95 (60-115) mg/dL Calcium 8.9 D (8.4-10.2) mg/dL Total Bilirubin 0.5 (0.0-1.0) mg/dL AST 10 (5-37) U/L ALT 10 (0-40) U/L Alkaline Phosphatase 105 D (39-117) U/L Total Protein 6.9 D (6.5-8.0) g/dL Albumin 3.7 D (3.5-5.0) g/dL Urine Color YELLOW Urine Appearance HAZY Urine pH 6.0 (5.0-8.0) Ur Specific [place] 1.015 (1.005-1.025) Urine Protein 2+ H (NEG-TRACE) MG/DL Urine Glucose (UA) NEG (NEG) MG/DL Urine Ketones NEG (NEG) MG/DL Urine Blood 3+ H (NEG) Urine Nitrite NEG (NEG) Ur Leukocyte Esterase 1+ H (NEG) Urine RBC 30-49 H (0) /HPF Urine WBC 50-75 H (0-4) /HPF Ur Squamous Epith Cells TRACE /LPF Amorphous Sediment TRACE /LPF Urine Bacteria TRACE /LPF Discharge Plan Discharge Clinical Impression: Urinary tract infection, Acute urinary retention, Decubitus ulcer of sacral area Patient Disposition: Still a Patient Instructions: Urinary Retention in Men (ED), Urinary Tract Infection in Men (ED), Chronic Wounds (ED) Additional Instructions: Follow-up with Dr. Thurston as needed. Take antibiotics as prescribed. Start with a visiting nurse and appropriate wound care as arranged by case management Prescriptions: New cefdinir 300 mg capsule 300 mg PO BID Qty: 14 RF: 0 No Action atorvastatin 20 mg tablet 1 tab PO DAILY RF: 0 pantoprazole 40 mg tablet,delayed release (DR/EC) 1 tab PO BID RF: 0 furosemide 20 mg tablet 1 tab PO BID RF: 0 mirtazapine 15 mg tablet 1 tab PO BEDTIME RF: 0 oxycodone 5 mg tablet 1 tab PO Q6H PRN (Reason: Pain) RF: 0 cholestyramine-aspartame [Cholestyramine Light] 4 gram powder in packet 1 packet PO BID RF: 0 quetiapine 50 mg tablet 1 tab PO BID RF: 0 Eliquis 5 mg tablet 1 tab PO BID RF: 0 diltiazem HCl 180 mg capsule,extended release 24hr 1 cap PO DAILY RF: 0 gabapentin 800 mg tablet 1 tab PO TID RF: 0 lisinopril 5 mg tablet 1 tab PO DAILY RF: 0 fluoxetine 20 mg capsule 1 cap PO QAM RF: 0 metoprolol tartrate 25 mg tablet 0.5 tab PO BID RF: 0 multivitamin Tablet 1 tab PO DAILY RF: 0
[2021-07-02 14:28] LABS: MANUAL DIFF FLAG NO
[2021-07-02 14:29] LABS: Basophils Percent Auto 0.5 % (0-2); Eosinophils Absolute Auto 0.2 X10*3/uL (0.0-0.4); Eosinophils Percent Auto 2.3 % (0-4); Hematocrit 37.6 % (42-52); Imm Gran Abs Auto 0.04 X10*3/uL (0.00-0.03); Imm Gran Pct Auto 0.5 % (0.0-0.4); Lymphocytes Absolute Auto 1.4 X10*3/uL (1.2-4.9); Lymphocytes Percent Auto 16.2 % (20-40); Mean Corpuscular HGB Conc 31.9 g/dl (31.0-36.0); Mean Corpuscular Hemoglobin 27.7 pg (27.0-33.0); Mean Corpuscular Volume 86.8 fL (80-98); Mean Platelet Volume 9.1 fL (9.4-12.4); Monocytes Absolute Auto 0.6 X10*3/uL (0.1-1.2); Monocytes Percent Auto 6.3 % (2-11); Neutrophils Absolute Auto 6.5 X10*3/uL (2.0-8.3); Neutrophils Percent Auto 74.2 % (45-73); Platelet Count 364 X10*3/uL (160-400); Red Blood Count 4.33 X10*6/uL (4.60-5.80); Red Cell Distribution Width 16.1 % (11.0-16.0); White Blood Count 8.7 X10*3/uL (4.8-10.8)
[2021-07-02] MEDS: Morphine Sulfate 4 MG/ML CARTRIDGE IVPUSH ×2 (14:29→21:12)
--- NOTE | 2021-07-02 14:35 | PHA.MEDREC ---
Pharmacy Consult ? Medication Reconciliation Pharmacy has completed the medication reconciliation. Patient does not use his prescribed Combivent inhaler. Angela Dixon, AbenaD
[2021-07-02 14:45] LABS: Alanine Aminotransferase 10 U/L (0-40); Albumin Level 3.7 g/dL (3.5-5.0); Alkaline Phosphatase 105 U/L (39-117); Anion Gap 14 (12-20); Aspartate Amino Transferase 10 U/L (5-37); Bilirubin Total 0.5 mg/dL (0.0-1.0); Blood Urea Nitrogen 15 mg/dL (9-16); Calcium 8.9 mg/dL (8.4-10.2); Carbon Dioxide 27 mmol/L (22-29); Chloride 103 mmol/L (96-108); Estimated Glomerular Filt Rate > 60; Glucose Random 95 mg/dL (60-115); Potassium 4.1 mmol/L (3.3-5.1); Sodium 140 mmol/L (135-145); Total Protein 6.9 g/dL (6.5-8.0)
--- NOTE | 2021-07-02 15:27 | PC.NURSE ---
due to pt having difficult barth placement; urojet given to provider. md caballero at bedside to place.
[2021-07-02] MEDS: Lidocaine HCl 2 % Urojet 10 ML JEL.PF.APP TOPICAL (15:28)
--- NOTE | 2021-07-02 16:32 | PC.NURSE ---
Due md being unable to place barth-urology will be consulted.
[2021-07-02 20:22] LABS: Appearance Urine HAZY; Color Urine YELLOW; Glucose Urine UA NEG (NEG); Leukocyte Esterase Urine 1+ (NEG); Nitrite Urine NEG (NEG); Specific Gravity - Urine 1.015 (1.005-1.025); UACC Culture Trigger YES; Urine Blood 3+ (NEG); Urine Ketones NEG (NEG); Urine Protein 2+ MG/DL (NEG-TRACE)
[2021-07-02 20:29] LABS: Squamous Epithelial Cell Urine TRACE /LPF
[2021-07-02 20:30] LABS: RBC Urine 30-49 /HPF (0)
[2021-07-02 20:31] LABS: Bacteria Urine TRACE /LPF; WBC Urine 50-75 /HPF (0-4)
[2021-07-02 20:32] LABS: Amorphous Sediment Urine TRACE /LPF
[2021-07-02] MEDS: cefTRIAXone sodium 1 GM in 0.9 % Sodium Chloride 50 ML IV (21:12)
--- NOTE | 2021-07-02 21:42 | MHC.CM.ED ---
Addendum entered by Gabrielle Hewitt 07/02/21 22:32: Referrals broadcast to 11 VNA services. [facility] and contact card given to patient. Original Note: CM met with patient at request of Dr. Damon at 9pm. CM placed at 3pm, but CM not notified. Pt lives alone, with LEAD FURNACE OPERATOR living upstairs. LEAD FURNACE OPERATOR/HCP Nubia Samayoa ([phone]). HCP is on file.Pt was hospitalized [place] [facility] [place] and d/c to [facility]. Pt was d/c from [facility] 9 days ago with VNA services through [facility]. Pt has not had any VNA services. Pt states when he called [facility], he was told that they had notified [facility] that they could not accept his care, as they did not have the staffing. Pt and LEAD FURNACE OPERATOR have been trying to have VNA services arranged through the PCP without success. Pt presents to the ED with a UTI and chronic non-healing decubiti. Pt has a F/C and a colostomy. Pt has a BKA. Pt has LEAD FURNACE OPERATOR services through [facility]-63 hours/week. Pt is no longer able to assist with transfers secondary to de-conditioning. Pt has appointment with [facility] for re-evaluation of needed hours, and will also get a hospital bed and a sally life. Pt uses a Wheelchair, but is essentially bedridden at this time. Pt is fully vaccinated with J&J vaccine. Pt uses [email or web address] [facility] [employer] [facility] in [facility] for his medical supplies. Dr. Damon is considering admission for this patient. If patient is not admitted, CM recommends patient remain in ED overnight so that home services can be arranged. Pt and LEAD FURNACE OPERATOR are in agreement> Dr. Damon aware. CM does not want this patient to go home without documentation of services arranged. Referral made locally. CM to follow for d/c needs.
[2021-07-02 23:31] LABS: COVID-19 Test Negative (Negative); IDNOW Serial# 9DD0AD1C
[2021-07-03] VITALS (30 sets, daily range): BP systolic 71–128; BP diastolic 38–64; PULSE 54–89; RESP 16–18; TEMP 36.4–36.8; O2SAT 94–100
--- NOTE | 2021-07-03 | ECG_ITS ---
Test Reason : GENERAL MEDICAL Blood Pressure : / mmHG Vent. Rate : 059 BPM Atrial Rate : 277 BPM P-R Int : 000 ms QRS Dur : 090 ms QT Int : 464 ms P-R-T Axes : 000 -69 101 degrees QTc Int : 459 ms Atrial fibrillation with slow ventricular response RSR' or QR pattern in V1 suggests right ventricular conduction delay Left anterior fascicular block Nonspecific T wave abnormality Abnormal ECG When compared with ECG of 07-APR-2021 14:48, No significant change was found Referred By: Coty Lyn Electronically Signed By:JOHNNA GUEVARA MD
--- NOTE | 2021-07-03 03:54 | PC.NURSE ---
CHECKED ON PT FOR POSITIONING, OFFERED PT A HOSPITAL BED BUT HE REFUSED. PT HAS LERNER IN PLACE, DID NOT WANT LEG SECUREMENT DEVICE ATTACHED. BRODY GEE REPORTS THAT WAS NOT ABLE TO PLACE LERNER DURING HER SHIRT, MD FARIAS CAME INTO PLACE URINARY CATHETER. 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 PT WOKE IMMEDIATELY WHEN RN AND PCT ENTERED ROOM. PT'S SYSTOLIC BP IN 90'S. PT'S MED REC NEEDS TO BE APPROVED BY , SO PT CAN GET HIS HOME MEDICATIONS.
--- NOTE | 2021-07-03 08:19 | PC.NURSE ---
Patient was just seen by case management. plan is for transfer home by ambulance at 1030 with VNA services
--- NOTE | 2021-07-03 08:24 | MHC.CM.ED ---
pt asked for ref. be made to [facility], this was done and patient was accepted. they will see patient 07/06/21 for nsg and home pt. pt has been made aware of this and furnished c [facility] ph number. pt is returning home via [facility] today. rn and PA in the e.d. are aware of the dc plan. cm to cont. to follow.
[2021-07-03] MEDS: Apixaban 5 MG TABLET PO ×2 (08:40→21:15)
[2021-07-03] MEDS: dilTIAZem HCL CD 180 MG CAP.ER.24H PO (08:40)
[2021-07-03] MEDS: lisinopriL 5 MG TABLET PO (08:40)
[2021-07-03] MEDS: Gabapentin 400 MG CAPSULE 800 MG PO ×3 (08:40→21:15)
[2021-07-03] MEDS: Metoprolol Tartrate 12.5 MG HALFTAB PO (08:41)
[2021-07-03] MEDS: QUEtiapine Fumarate 50 MG TABLET PO ×2 (08:41→21:15)
[2021-07-03] MEDS: FLUoxetine HCl 20 MG CAPSULE PO (08:41)
[2021-07-03] MEDS: Omeprazole 20 MG CAPSULE.DR PO (08:41)
[2021-07-03] MEDS: Furosemide 20 MG TABLET PO (08:41)
[2021-07-03] MEDS: Multivitamin TABLET 1 TAB PO (08:41)
[2021-07-03] MEDS: oxyCODONE HCl Immed Release 5 MG TABLET PO (08:49)
--- NOTE | 2021-07-03 09:40 | PC.NURSE ---
Patient with extensive wounds on buttocks, multiple pressure areas stage 2 with granulation tissue present. On left buttock patient has an unstageable tunneling ulcer with slough present. Coty PA in to assess wounds and made aware that wound consult would not be able to be provided if patient is discharged home.
[2021-07-03] MEDS: Morphine Sulfate 4 MG/ML CARTRIDGE IVPUSH (10:40)
[2021-07-03] MEDS: Piperacillin Sodium/Tazobactam 3.375 GM in 0.9 % Sodium Chloride 50 ML IV ×2 (11:52→18:46)
--- NOTE | 2021-07-03 12:05 | PC.NURSE ---
patient a&ox3, patients BP low on both arms, pt is asymptomatic of BP- ED provider and hospitalist notified and BP to be followed per his request- no new orders otherwise, patient was turned/positioned to comfort- patients wounds are currently open to air and will be left open to air per request of hospitalist until wound care assesses., pt has 7/10 pain to buttocks, bc obtained first abd hanging per order, will continue to monitor BP
[2021-07-03] MEDS: 0.9 % Sodium Chloride 1,000 ML 999 ML IVCONT (12:18)
--- NOTE | 2021-07-03 12:20 | PC.NURSE ---
1l ivf hangin per order
[2021-07-03] MEDS: vancomycin HCL 1,250 MG in 0.9 % Sodium Chloride 250 ML 166.67 MG IV (12:33)
--- NOTE | 2021-07-03 12:33 | PC.NURSE ---
patients boosted in bed, given fresh water, second iv antibiotic hanging per order, will trend bps as requested
--- NOTE | 2021-07-03 12:51 | PC.NURSE ---
patient a&ox3, placed on program medical director, program medical director sinus miky 60s, pt hypotensive and o2 sat has lowered to 80s, pt speaking in full sentences asymptomatic of o2 sat and asymptomatic of hypotension
--- NOTE | 2021-07-03 13:17 | PC.NURSE ---
dr guzman requested cxr and ekg, will perform and continue to monitor.
--- NOTE | 2021-07-03 13:39 | PC.NURSE ---
cxr and ekg performed
--- NOTE | 2021-07-03 14:30 | PM.IMHP ---
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 In the emergency room he was seen by our Urology to replace his catheter, and was found to have UTI. When examined his sacral and buttocks wounds have become extensive secondary to lack of care at home. At this point in time he will be admitted for wound care evaluation and treatment of his UTI/cellulitis Review of Systems Review of Systems: Denies chest pain Denies shortness of Denies nausea vomiting diarrhea PMFSH Medical History Acute osteomyelitis Atrial fibrillation Colostomy complication COVID Embolism Encounter for surgical aftercare following surgery of digestive system Essential hypertension Major depressive disorder Muscle weakness Paraplegia Pertinent family history: . Surgical History Hx of BKA Social History Household Members: Family Housing: Other Housing Other:: Pt comes from [facility] Do you presently have visiting nurse or other home services: Yes Alcohol intake: never Patient Tobacco Use Status: Never used Tobacco Use of substances other than those prescribed or required for medical reasons: No Advance Directives: No Advance Directives Information Provided: Yes service: No Current occupational status: disabled Meds Allergies Allergy/AdvReac Type Severity Reaction Status Date / Time No Known Allergies Allergy Unverified 06/11/20 15:43 [No Known Allergies*] Active Medications: Current Medications Apixaban (Apixaban 5 Mg Tablet) 5 mg PO BID [facility] Last Admin: 07/03/21 08:40 Dose: 5 mg Documented by: Atorvastatin Calcium (Atorvastatin Calcium 20 Mg Tablet) 20 mg PO BEDTIME [facility] Cholestyramine Resin (Cholestyramine (With Sugar) 4 Gm Powd.Pack) 4 gm PO BID [facility] Last Admin: 07/03/21 08:49 Dose: Not Given Documented by: Diltiazem HCl (Diltiazem Hcl Cd 180 Mg Cap.Er.24h) 180 mg PO DAILY [facility]; Protocol Last Admin: 07/03/21 08:40 Dose: 180 mg Documented by: Fluoxetine HCl (Fluoxetine Hcl 20 Mg Capsule) 20 mg PO DAILY [facility] Last Admin: 07/03/21 08:41 Dose: 20 mg Documented by: Furosemide (Furosemide 20 Mg Tablet) 20 mg PO BID [facility]; Protocol Last Admin: 07/03/21 08:41 Dose: 20 mg Documented by: Gabapentin (Gabapentin 400 Mg Capsule) 800 mg PO TID [facility] Last Admin: 07/03/21 08:40 Dose: 800 mg Documented by: Vancomycin HCl 1,500 mg/ (Sodium Chloride) 500 mls @ 333.333 mls/hr IV Q24H [facility] Sodium Chloride (Ns) 1,000 mls @ 100 mls/hr IVCONT .Q10H [facility] Lisinopril (Lisinopril 5 Mg Tablet) 5 mg PO DAILY [facility]; Protocol Last Admin: 07/03/21 08:40 Dose: 5 mg Documented by: Melatonin (Melatonin 3 Mg Tablet) 6 mg PO BEDTIME PRN PRN Reason: Insomnia Metoprolol Tartrate (Metoprolol Tartrate 12.5 Mg Halftab) 12.5 mg PO BID [facility]; Protocol Last Admin: 07/03/21 08:41 Dose: 12.5 mg Documented by: Mirtazapine (Mirtazapine 15 Mg Tablet) 15 mg PO BEDTIME [facility] Multivitamins/Vitamin C (Multivitamin Tablet) 1 tab PO DAILY [facility] Last Admin: 07/03/21 08:41 Dose: 1 tab Documented by: Non-Formulary Medication (Ipratropium-Albuterol [Combivent Respimat]) 1 puff INHALE QID [facility] Omeprazole (Omeprazole 20 Mg Capsule.Dr) 20 mg PO DAILY@0630 [facility] Last Admin: 07/03/21 08:41 Dose: 20 mg Documented by: Ondansetron HCl (Ondansetron Hcl 4 Mg/2 Ml Vial) 4 mg IVPUSH Q8H PRN PRN Reason: Nausea and Vomiting Oxycodone HCl (Oxycodone Hcl Immed Release 5 Mg Tablet) 5 mg PO Q6H PRN PRN Reason: Pain Last Admin: 07/03/21 08:49 Dose: 5 mg Documented by: Oxycodone HCl (Oxycodone Hcl Immed Release 5 Mg Tablet) 5 mg PO Q6H PRN PRN Reason: Pain, Severe (Pain Scale 7-10) Pharmacy Consult (Consult Rx Perform Med Rec) 1 each MISCELLANE ONCE PRN PRN Reason: Consult order Pharmacy Consult (Consult Rx Vancomycin Dosing) 1 each MISCELLANE DAILY PRN PRN Reason: Consult order Quetiapine Fumarate (Quetiapine Fumarate 50 Mg Tablet) 50 mg PO BID [facility] Last Admin: 07/03/21 08:41 Dose: 50 mg Documented by: Sodium Chloride (0.9 % Sodium Chloride Flush 3 Ml Syringe) 3 ml IVFLUSH QSHIFT [facility] Home Medications Medication Instructions Recorded Confirmed Last Taken Type apixaban 5 mg tablet (Eliquis) 1 tab PO BID 04/07/21 07/02/21 Unknown History atorvastatin 20 mg tablet 1 tab PO DAILY 04/07/21 07/02/21 Unknown History cholestyramine-aspartame 4 gram 1 packet PO BID 04/07/21 07/02/21 Unknown History oral powder for susp in a packet (Cholestyramine Light) furosemide 20 mg tablet 1 tab PO BID 04/07/21 07/02/21 Unknown History mirtazapine 15 mg tablet 1 tab PO BEDTIME 04/07/21 07/02/21 Unknown History oxycodone 5 mg tablet 1 tab PO Q6H PRN 04/07/21 07/02/21 Unknown History pantoprazole 40 mg tablet,delayed 1 tab PO DAILY 04/07/21 07/03/21 Unknown History release quetiapine 50 mg tablet 1 tab PO BID 04/07/21 07/02/21 Unknown History diltiazem HCl 180 mg 1 cap PO DAILY 07/02/21 07/02/21 Unknown History capsule,extended release 24 hr fluoxetine 20 mg capsule 1 cap PO QAM 07/02/21 07/02/21 Unknown History gabapentin 800 mg tablet 1 tab PO TID 07/02/21 07/02/21 Unknown History lisinopril 5 mg tablet 1 tab PO DAILY 07/02/21 07/02/21 Unknown History metoprolol tartrate 25 mg tablet 0.5 tab PO BID 07/02/21 07/02/21 Unknown History multivitamin 1 tab PO DAILY 07/02/21 07/02/21 Unknown History ipratropium 20 mcg-albuterol 100 1 puff INHALATION QID 07/03/21 07/03/21 Unknown History mcg/actuation mist for inhalation (Combivent Respimat) Physical Exam Vital Signs and Narrative: Vital Signs: Last Vital Signs Temp 97.6 F 07/03/21 11:55 Pulse 65 07/03/21 12:19 Resp 18 07/03/21 11:55 BP 76/38 L 07/03/21 12:19 Pulse Ox 95 07/03/21 12:53 Body Mass Index 27.4 Const: Other: Awake alert oriented x3 no acute distress HENMT: Other: Oropharynx clear, membranes moist Resp: Other: Clear to auscultation with good aeration to all garcia. No rales Cardio: Other: No S4; positive S1-S2; no S3 without murmurs rubs or gallops GI: Other: Soft nontender nondistended normoactive bowel sounds. Function colostomy left lower quadrant Extrem: Other: Left BKA; right lower extremity deformity (chronic) Results Labs CBC and Chem 7: 07/02/21 14:22 07/02/21 14:23 Labs: Laboratory Results - last 24 hr 07/02/21 07/02/21 07/02/21 14:23 20:11 23:07 Anion Gap 14 Estim Creat Clear Calc 113.0 Estimated GFR > 60 Random Glucose 95 Calcium 8.9 D Total Bilirubin 0.5 AST 10 ALT 10 Alkaline Phosphatase 105 D Total Protein 6.9 D Albumin 3.7 D Urine Color YELLOW Urine Appearance HAZY Urine pH 6.0 Ur Specific [place]y 1.015 Urine Protein 2+ H Urine Glucose (UA) NEG Urine Ketones NEG Urine Blood 3+ H Urine Nitrite NEG Ur Leukocyte Esterase 1+ H Urine RBC 30-49 H Urine WBC 50-75 H Ur Squamous Epith Cells TRACE Amorphous Sediment TRACE Urine Bacteria TRACE COVID-19 (CHRISTINE) Negative COVID-19 Clin Com See Note Imaging Radiologist's Impressions: Impressions Chest X-Ray 07/03/21 13:35 IMPRESSION: Stable enlargement of cardiac silhouette. Stable enlargement of the aortic arch. Atelectasis or small infiltrate at the right lung base. Assessment and Plan (1) Decubitus ulcer of sacral area: Status: Acute (2) Urinary tract infection: Status: Acute (3) Cellulitis: Status: Acute 65-year-old male with longstanding history of sacral decubiti I presents with acute UTI and worsening of his sacral wounds. He also carries a known history of AFib that is rate control. Napier has been changed by Urology and he will be admitted for further treatment and workup 1. Extensive sacral and buttocks ulceration with coexisting cellulitis Blood cultures drawn. Will cover with ceftriaxone and Zosyn ID consult Discharge planning for home services 2. UTI in backdrop of chronic Napier Continue coverage and await cultures 3. Atrial fibrillation; chronic Continue Eliquis and beta blockade. Adjust as indicated 4. Hyperlipidemia Continue statin as per outpatient dosing Full code DVT prophylaxis; Eliquis and Plavix Quality Stroke Does the patient have a stroke diagnosis?: No VTE Prior VTE?: No VTE Risk Level:: Medical - moderate - high VTE Device Contraindication: Treatment Not Indicated VTE Drug Contraindication: Treatment Not Indicated
--- NOTE | 2021-07-03 15:24 | PC.NURSE ---
patient a&ox2, cardiac care nurse afib with inverted t waves, rate is 55, pt remains on O2 at this time, pt continues to be hypotensive-hospitalist aware- pt is asymptomatic of hypotension. sepsis ivf running per new order- the ns @ 100ml/hr is currently held until the protocol has completed, pt medicated per order, barth cath patient/draining, repeat labs performed by phlebotomy, will continue to monitor.
[2021-07-03 15:27] LABS: MANUAL DIFF FLAG NO
[2021-07-03 15:34] LABS: Basophils Percent Auto 0.4 % (0-2); Eosinophils Absolute Auto 0.2 X10*3/uL (0.0-0.4); Eosinophils Percent Auto 2.9 % (0-4); Hematocrit 31.6 % (42-52); Imm Gran Abs Auto 0.02 X10*3/uL (0.00-0.03); Imm Gran Pct Auto 0.2 % (0.0-0.4); Lymphocytes Absolute Auto 1.6 X10*3/uL (1.2-4.9); Lymphocytes Percent Auto 19.6 % (20-40); Mean Corpuscular HGB Conc 31.6 g/dl (31.0-36.0); Mean Corpuscular Hemoglobin 27.9 pg (27.0-33.0); Mean Corpuscular Volume 88.3 fL (80-98); Mean Platelet Volume 9.1 fL (9.4-12.4); Monocytes Absolute Auto 0.7 X10*3/uL (0.1-1.2); Monocytes Percent Auto 8.6 % (2-11); Neutrophils Absolute Auto 5.6 X10*3/uL (2.0-8.3); Neutrophils Percent Auto 68.3 % (45-73); Platelet Count 338 X10*3/uL (160-400); Red Blood Count 3.58 X10*6/uL (4.60-5.80); Red Cell Distribution Width 16.2 % (11.0-16.0); White Blood Count 8.2 X10*3/uL (4.8-10.8)
[2021-07-03 15:40] LABS: Lactic Acid 1.5 mmol/L (0.5-2.0)
[2021-07-03 15:49] LABS: INTERNATIONAL NORM RATIO 1.6 (0.9-1.1)
[2021-07-03 15:50] LABS: Alanine Aminotransferase 8 U/L (0-40); Albumin Level 2.9 g/dL (3.5-5.0); Alkaline Phosphatase 93 U/L (39-117); Anion Gap 10 (12-20); Aspartate Amino Transferase 11 U/L (5-37); B Type Natriuretic Peptide 125 pg/mL (<100); Bilirubin Total 0.5 mg/dL (0.0-1.0); Blood Urea Nitrogen 12 mg/dL (9-16); Calcium 7.8 mg/dL (8.4-10.2); Carbon Dioxide 27 mmol/L (22-29); Chloride 105 mmol/L (96-108); Creatinine Clr Calc Pharmacy 109.5; Estimated Glomerular Filt Rate > 60; Glucose Random 103 mg/dL (60-115); Magnesium 1.7 mg/dL (1.6-2.6); Potassium 3.7 mmol/L (3.3-5.1); Sodium 138 mmol/L (135-145); Total Protein 5.4 g/dL (6.5-8.0)
[2021-07-03] MEDS: 0.9 % Sodium Chloride 1,000 ML 100 ML IVCONT (18:46)
--- NOTE | 2021-07-03 18:51 | PC.NURSE ---
patient a&ox3, pt remains hypotensive-asymptomatic, afib on bus monitor, 3L O2 nc, barth cath patient/draining, ivf running per order, pt ate 100% of dinner, will continue to monitor.
[2021-07-03] MEDS: Lactated Ringers 1,000 ML 999 ML IV (19:43)
--- NOTE | 2021-07-03 19:45 | PC.NURSE ---
lr started per hospitalist request
[2021-07-03] MEDS: cefTRIAXone sodium 1 GM in 0.9 % Sodium Chloride 50 ML IV (21:15)
[2021-07-03] MEDS: Cholestyramine (With Sugar) 4 GM POWD.PACK PO (21:15)
[2021-07-03] MEDS: Atorvastatin Calcium 20 MG TABLET PO (21:15)
[2021-07-03] MEDS: Midodrine HCl 5 MG TABLET PO (21:24)
[2021-07-03] MEDS: Mirtazapine 15 MG TABLET PO (21:25)
--- NOTE | 2021-07-03 21:27 | PC.NURSE ---
patient a&ox3, quality assurance monitor afib 70s, pt continues to be hypotensive-hospitalist aware, bp med and lasix held with hospitalist notified and ok'd due to blood pressure, patient continues to be asymptomatic of the hypotension, barth cath patient/draining, pt does have pain to buttocks, turned/position to patient comfort, call mejias within reach, will continue to monitor.
[2021-07-04] VITALS (9 sets, daily range): BP systolic 89–150; BP diastolic 42–70; PULSE 60–91; RESP 16–20; TEMP 36.1–36.9; O2SAT 96–100
[2021-07-04] MEDS: Piperacillin Sodium/Tazobactam 3.375 GM in 0.9 % Sodium Chloride 50 ML IV ×4 (00:05→21:00)
--- NOTE | 2021-07-04 00:26 | PC.NURSE ---
GOING INTO ROOM TO MEDICATE PATIENT. PATIENT WAKING UP REMOVING HIS BLOOD PRESSURE CUFF IT WAS GOING OFF THIS IS ANNOYING ME . PATIENT STATING YOU CAN DO ALL THIS WHEN I WAKE UP, I AM SLEEPING NOW INFORMING PATIENT THAT THIS IS A CARE FACILITY AND HIS BLOOD PRESSURE AND VITALS NEED TO BE MONITORED AND GIVEN MEDICATION AT ALL HOURS OF THE DAY AND NIGHT. THIS RN STATING SHE WILL TRY TO BE QUIET POSSIBLE TO DISTURB THE PATIENT LESS BUT STILL NEEDS TO CARRY OUT TREATMENTS. PATIENT THEN YELLING AT NURSE TO LEAVE THE ROOM. [place] [facility] [place] TO HEAR BACK FROM STAFF NURSE TAKING REPORT. MILL STENCILER CALLING TO STATE IT WILL BE A LITTLE WHILE UNTIL THE RN WAS READY FOR REPORT.
[2021-07-04] MEDS: Omeprazole 20 MG CAPSULE.DR PO (05:39)
[2021-07-04 06:47] LABS: MANUAL DIFF FLAG NO
[2021-07-04 06:53] LABS: Basophils Absolute Auto 0.1 X10*3/uL (0.0-0.2); Basophils Percent Auto 0.6 % (0-2); Eosinophils Absolute Auto 0.4 X10*3/uL (0.0-0.4); Eosinophils Percent Auto 4.5 % (0-4); Hematocrit 30.6 % (42-52); Hemoglobin 9.6 g/dl (14.0-18.0); Imm Gran Abs Auto 0.03 X10*3/uL (0.00-0.03); Imm Gran Pct Auto 0.4 % (0.0-0.4); Lymphocytes Percent Auto 12.3 % (20-40); Mean Corpuscular HGB Conc 31.4 g/dl (31.0-36.0); Mean Corpuscular Volume 89.2 fL (80-98); Mean Platelet Volume 9.6 fL (9.4-12.4); Monocytes Absolute Auto 0.8 X10*3/uL (0.1-1.2); Monocytes Percent Auto 10.3 % (2-11); Neutrophils Absolute Auto 5.6 X10*3/uL (2.0-8.3); Neutrophils Percent Auto 71.9 % (45-73); Platelet Count 327 X10*3/uL (160-400); Red Blood Count 3.43 X10*6/uL (4.60-5.80); Red Cell Distribution Width 16.2 % (11.0-16.0); White Blood Count 7.8 X10*3/uL (4.8-10.8)
[2021-07-04 07:21] LABS: Anion Gap 10 (12-20); Blood Urea Nitrogen 10 mg/dL (9-16); Calcium 7.3 mg/dL (8.4-10.2); Carbon Dioxide 24 mmol/L (22-29); Chloride 110 mmol/L (96-108); Creatinine Clr Calc Pharmacy 127.4; Estimated Glomerular Filt Rate > 60; Glucose Random 101 mg/dL (60-115); Potassium 3.4 mmol/L (3.3-5.1); Sodium 141 mmol/L (135-145)
[2021-07-04] MEDS: Furosemide 20 MG TABLET PO ×2 (07:59→21:00)
[2021-07-04] MEDS: Gabapentin 400 MG CAPSULE 800 MG PO ×3 (07:59→21:00)
[2021-07-04] MEDS: Metoprolol Tartrate 12.5 MG HALFTAB PO ×2 (08:00→21:00)
[2021-07-04] MEDS: Apixaban 5 MG TABLET PO ×2 (08:01→21:00)
[2021-07-04] MEDS: QUEtiapine Fumarate 50 MG TABLET PO ×2 (08:01→21:00)
[2021-07-04] MEDS: Multivitamin TABLET 1 TAB PO (08:08)
[2021-07-04] MEDS: FLUoxetine HCl 20 MG CAPSULE PO (08:08)
[2021-07-04] MEDS: 0.9 % Sodium Chloride 1,000 ML 100 ML IVCONT ×2 (08:12→21:01)
[2021-07-04] MEDS: oxyCODONE HCl Immed Release 5 MG TABLET PO (12:40)
--- NOTE | 2021-07-04 12:58 | HO.PM.IMPN ---
Subjective Subjective Date of Service: 07/04/21 Interval History: Remained HD stable overnight. No acute issues this a.m.. Pain control adequate Review of Systems Denies chest pain Denies shortness of Denies nausea vomiting diarrhea Physical Exam Vital Signs: Vital Signs: Last Vital Signs Temp 97 F 07/04/21 10:57 Pulse 62 07/04/21 10:57 Resp 18 07/04/21 10:57 BP 101/58 L 07/04/21 10:57 Pulse Ox 100 07/04/21 10:57 Body Mass Index 27.4 Const: Other: Awake alert oriented x3 no acute distress HENMT: Other: Oropharynx clear, membranes moist Resp: Other: Clear to auscultation with good aeration to all garcia. No rales Cardio: Other: No S4; positive S1-S2; no S3 without murmurs rubs or gallops GI: Other: Soft nontender nondistended normoactive bowel sounds. Function colostomy left lower quadrant Skin: Other: Extrem: Other: Left BKA; right lower extremity deformity (chronic) Objective Data Active Medications Albuterol/Ipratropium (Albuterol/Iprat 2.5/0.5mg 3 Ml Ampul.Neb) 3 ml INHALE RQID [facility] Last Admin: 07/04/21 10:56 Dose: Not Given Documented by: ALFREDO Non-Admin Reason: Patient Refused Apixaban (Apixaban 5 Mg Tablet) 5 mg PO BID [facility] Last Admin: 07/04/21 08:01 Dose: 5 mg Documented by: RAYMUNDO Atorvastatin Calcium (Atorvastatin Calcium 20 Mg Tablet) 20 mg PO BEDTIME [facility] Last Admin: 07/03/21 21:15 Dose: 20 mg Documented by: ELOISE Cholestyramine Resin (Cholestyramine (With Sugar) 4 Gm Powd.Pack) 4 gm PO BID [facility] Last Admin: 07/04/21 08:09 Dose: Not Given Documented by: RAYMUNDO Non-Admin Reason: Patient Refused Diltiazem HCl (Diltiazem Hcl Cd 180 Mg Cap.Er.24h) 180 mg PO DAILY [facility]; Protocol Last Admin: 07/03/21 08:40 Dose: 180 mg Documented by: HOOD Fluoxetine HCl (Fluoxetine Hcl 20 Mg Capsule) 20 mg PO DAILY [facility] Last Admin: 07/04/21 08:08 Dose: 20 mg Documented by: RAYMUNDO Furosemide (Furosemide 20 Mg Tablet) 20 mg PO BID [facility]; Protocol Last Admin: 07/04/21 07:59 Dose: 20 mg Documented by: RAYMUNDO Gabapentin (Gabapentin 400 Mg Capsule) 800 mg PO TID [facility] Last Admin: 07/04/21 07:59 Dose: 800 mg Documented by: RAYMUNDO Vancomycin HCl 1,500 mg/ (Sodium Chloride) 500 mls @ 333.333 mls/hr IV Q24H [facility] Sodium Chloride (Ns) 1,000 mls @ 100 mls/hr IVCONT .Q10H [facility] Last Admin: 07/04/21 11:58 Dose: Not Given Documented by: RAYMUNDO Non-Admin Reason: IV Running Piperacillin Sod/Tazobactam (Sod 3.375 gm/ Sodium Chloride) 50 mls @ 100 mls/hr IV Q6H [facility] Last Admin: 07/04/21 12:41 Dose: 100 mls/hr Documented by: RAYMUNDO Ceftriaxone Sodium 1 gm/ (Sodium Chloride) 50 mls @ 100 mls/hr IV Q24H [facility] Last Infusion: 07/03/21 21:45 Dose: 0 mls/hr Documented by: ELOISE Lisinopril (Lisinopril 5 Mg Tablet) 5 mg PO DAILY [facility]; Protocol Last Admin: 07/03/21 08:40 Dose: 5 mg Documented by: HOOD Melatonin (Melatonin 3 Mg Tablet) 6 mg PO BEDTIME PRN PRN Reason: Insomnia Metoprolol Tartrate (Metoprolol Tartrate 12.5 Mg Halftab) 12.5 mg PO BID [facility]; Protocol Last Admin: 07/04/21 08:00 Dose: 12.5 mg Documented by: RAYMUNDO Mirtazapine (Mirtazapine 15 Mg Tablet) 15 mg PO BEDTIME [facility] Last Admin: 07/03/21 21:25 Dose: 15 mg Documented by: ELOISE Multivitamins/Vitamin C (Multivitamin Tablet) 1 tab PO DAILY [facility] Last Admin: 07/04/21 08:08 Dose: 1 tab Documented by: RAYMUNDO Omeprazole (Omeprazole 20 Mg Capsule.) 20 mg PO DAILY@0630 [facility] Last Admin: 07/04/21 05:39 Dose: 20 mg Documented by: MACKENZIE Ondansetron HCl (Ondansetron Hcl 4 Mg/2 Ml Vial) 4 mg IVPUSH Q8H PRN PRN Reason: Nausea and Vomiting Oxycodone HCl (Oxycodone Hcl Immed Release 5 Mg Tablet) 5 mg PO Q6H PRN PRN Reason: Pain Last Admin: 07/04/21 12:40 Dose: 5 mg Documented by: RAYMUNDO Oxycodone HCl (Oxycodone Hcl Immed Release 5 Mg Tablet) 5 mg PO Q6H PRN PRN Reason: Pain, Severe (Pain Scale 7-10) Pharmacy Consult (Consult Rx Perform Med Rec) 1 each MISCELLANE ONCE PRN PRN Reason: Consult order Pharmacy Consult (Consult Rx Vancomycin Dosing) 1 each MISCELLANE DAILY PRN PRN Reason: Consult order Quetiapine Fumarate (Quetiapine Fumarate 50 Mg Tablet) 50 mg PO BID [facility] Last Admin: 07/04/21 08:01 Dose: 50 mg Documented by: RAYMUNDO Sodium Chloride (0.9 % Sodium Chloride Flush 3 Ml Syringe) 3 ml IVFLUSH QSHIFT [facility] Last Admin: 07/04/21 08:14 Dose: Not Given Documented by: RAYMUNDO Non-Admin Reason: IV Running Labs CBC & Chem 7: 07/04/21 06:23 07/04/21 06:23 Labs: Laboratory Results - last 24 hr 07/03/21 07/03/21 07/03/21 15:21 15:21 15:21 MCV 88.3 MCH 27.9 MCHC 31.6 RDW 16.2 H Plt Count 338 MPV 9.1 L Immature Gran % (Auto) 0.2 Neut % (Auto) 68.3 Lymph % (Auto) 19.6 L Maries % (Auto) 8.6 Eos % (Auto) 2.9 Baso % (Auto) 0.4 Lymph # (Auto) 1.6 Maries # (Auto) 0.7 Eos # (Auto) 0.2 Baso # (Auto) 0.0 Abs Immat Gran (auto) 0.02 Absolute Neuts (auto) 5.6 Absolute Nucleated RBC 0.000 Nucleated RBC % (auto) 0.0 PT 18.0 H INR 1.6 H Anion Gap 10 L Estim Creat Clear Calc 109.5 Estimated GFR > 60 Random Glucose 103 Lactic Acid Calcium 7.8 L D Magnesium 1.7 Total Bilirubin 0.5 AST 11 ALT 8 Alkaline Phosphatase 93 B-Natriuretic Peptide Total Protein 5.4 L D Albumin 2.9 L D 07/03/21 07/03/21 07/04/21 15:21 15:21 06:23 MCV 89.2 MCH 28.0 MCHC 31.4 RDW 16.2 H Plt Count 327 MPV 9.6 Immature Gran % (Auto) 0.4 Neut % (Auto) 71.9 Lymph % (Auto) 12.3 L Maries % (Auto) 10.3 Eos % (Auto) 4.5 H Baso % (Auto) 0.6 Lymph # (Auto) 1.0 L Maries # (Auto) 0.8 Eos # (Auto) 0.4 Baso # (Auto) 0.1 Abs Immat Gran (auto) 0.03 Absolute Neuts (auto) 5.6 Absolute Nucleated RBC 0.000 Nucleated RBC % (auto) 0.0 PT INR Anion Gap Estim Creat Clear Calc Estimated GFR Random Glucose Lactic Acid 1.5 Calcium Magnesium Total Bilirubin AST ALT Alkaline Phosphatase B-Natriuretic Peptide 125 H Total Protein Albumin 07/04/21 06:23 MCV MCH MCHC RDW Plt Count MPV Immature Gran % (Auto) Neut % (Auto) Lymph % (Auto) Maries % (Auto) Eos % (Auto) Baso % (Auto) Lymph # (Auto) Maries # (Auto) Eos # (Auto) Baso # (Auto) Abs Immat Gran (auto) Absolute Neuts (auto) Absolute Nucleated RBC Nucleated RBC % (auto) PT INR Anion Gap 10 L Estim Creat Clear Calc 127.4 Estimated GFR > 60 Random Glucose 101 Lactic Acid Calcium 7.3 L D Magnesium Total Bilirubin AST ALT Alkaline Phosphatase B-Natriuretic Peptide Total Protein Albumin Microbiology Microbiology Results: Microbiology 07/02/21 20:24 Urine Culture - Preliminary Urine clean catch - Urine means top 07/03/21 14:13 Urine Culture - Final Urine Catheterized - Napier Catheter Assessment and Plan (1) Decubitus ulcer of sacral area: Status: Acute (2) Cellulitis: Status: Acute Assessment and Plan: 65-year-old male with longstanding history of sacral decubiti I presents with acute UTI and worsening of his sacral wounds. He also carries a known history of AFib that is rate control. Napier has been changed by Urology and he will be admitted for further treatment and workup 1. Extensive sacral and buttocks ulceration with coexisting cellulitis Blood cultures drawn. Will cover with ceftriaxone and Zosyn ID consult Discharge planning for home services 2. UTI in backdrop of chronic Napier Colonization...no rx indicated 3. Hypotension; resolved with fluids Hold antihypertensive until stable. Continue IV fluids 4. Atrial fibrillation; chronic Continue Eliquis and beta blockade. Adjust as indicated 5. Hyperlipidemia Continue statin as per outpatient dosing Full code DVT prophylaxis; Eliquis and Plavix Quality Stroke Does the patient have a stroke diagnosis?: No VTE Prior VTE?: No VTE Risk Level:: Medical - moderate - high VTE Device Contraindication: Treatment Not Indicated VTE Drug Contraindication: Treatment Not Indicated
[2021-07-04] MEDS: vancomycin HCL 1,500 MG in 0.9 % Sodium Chloride 500 ML 333.33 MG IV (15:57)
[2021-07-04] MEDS: Atorvastatin Calcium 20 MG TABLET PO (21:00)
[2021-07-04] MEDS: Mirtazapine 15 MG TABLET PO (21:00)
--- NOTE | 2021-07-04 21:23 | PC.NURSE ---
pt has large amount of drainage from wound on coccyx. pad underneath patient was nearly saturated with serous drainage. Slight odor to wound/drainage. Triad cream applied to wound border. Open to air at this time besides triad cream due to size of wound. Frequent repositioning. Patient refusing attempts to put pillow underneath hip to get weight off of wound. Educated about need for frequent repositioning and changing of the pad underneath him.
[2021-07-05] VITALS (7 sets, daily range): BP systolic 113–142; BP diastolic 57–77; PULSE 75–97; RESP 18–22; TEMP 36–36.9; O2SAT 95–100; BMI 27.4
[2021-07-05] MEDS: cefTRIAXone sodium 1 GM in 0.9 % Sodium Chloride 50 ML IV ×2 (00:27→22:20)
[2021-07-05] MEDS: Piperacillin Sodium/Tazobactam 3.375 GM in 0.9 % Sodium Chloride 50 ML IV ×4 (02:37→22:20)
--- NOTE | 2021-07-05 05:40 | PC.NURSE ---
IV pump having issues. Unable to run zosyn until 0330, which finished at 0400. Called pharmacy and got it re-timed to start at 1000.
--- NOTE | 2021-07-05 05:42 | PC.NURSE ---
pt had two brief cardiac pauses at 0500. One being 2.08 seconds, followed by a second pause lasting 2.80 seconds. HR dropped to 28 during the pauses. Pt asymptomatic the entire time and sleeping. Woken up to assess, remained asymptomatic. MD notified. No new orders at this time.
[2021-07-05] MEDS: Omeprazole 20 MG CAPSULE.DR PO (06:18)
[2021-07-05 06:33] LABS: MANUAL DIFF FLAG NO
[2021-07-05 06:43] LABS: Basophils Absolute Auto 0.1 X10*3/uL (0.0-0.2); Basophils Percent Auto 0.7 % (0-2); Eosinophils Absolute Auto 0.4 X10*3/uL (0.0-0.4); Eosinophils Percent Auto 5.7 % (0-4); Hematocrit 30.6 % (42-52); Hemoglobin 9.6 g/dl (14.0-18.0); Imm Gran Abs Auto 0.03 X10*3/uL (0.00-0.03); Imm Gran Pct Auto 0.4 % (0.0-0.4); Lymphocytes Absolute Auto 0.9 X10*3/uL (1.2-4.9); Lymphocytes Percent Auto 13.6 % (20-40); Mean Corpuscular HGB Conc 31.4 g/dl (31.0-36.0); Mean Corpuscular Hemoglobin 27.8 pg (27.0-33.0); Mean Corpuscular Volume 88.7 fL (80-98); Mean Platelet Volume 9.5 fL (9.4-12.4); Monocytes Absolute Auto 0.6 X10*3/uL (0.1-1.2); Monocytes Percent Auto 8.5 % (2-11); Neutrophils Absolute Auto 4.9 X10*3/uL (2.0-8.3); Neutrophils Percent Auto 71.1 % (45-73); Platelet Count 369 X10*3/uL (160-400); Red Blood Count 3.45 X10*6/uL (4.60-5.80); Red Cell Distribution Width 16.2 % (11.0-16.0); White Blood Count 6.8 X10*3/uL (4.8-10.8)
--- NOTE | 2021-07-05 07:05 | PM.EVENT ---
Event Note Date of Service: 07/05/21 Event Note: Pt had multiple pauses lasting few seconds. no symptoms
[2021-07-05 07:12] LABS: Alanine Aminotransferase 9 U/L (0-40); Albumin Level 2.6 g/dL (3.5-5.0); Alkaline Phosphatase 87 U/L (39-117); Anion Gap 9 (12-20); Aspartate Amino Transferase 8 U/L (5-37); Bilirubin Total 0.4 mg/dL (0.0-1.0); Blood Urea Nitrogen 8 mg/dL (9-16); Calcium 7.4 mg/dL (8.4-10.2); Carbon Dioxide 26 mmol/L (22-29); Chloride 111 mmol/L (96-108); Creatinine Clr Calc Pharmacy 137.4; Estimated Glomerular Filt Rate > 60; Glucose Fasting 111 mg/dL (60-99); Potassium 3.5 mmol/L (3.3-5.1); Sodium 142 mmol/L (135-145); Total Protein 4.9 g/dL (6.5-8.0)
[2021-07-05] MEDS: 0.9 % Sodium Chloride 1,000 ML 100 ML IVCONT ×2 (10:28→22:21)
[2021-07-05] MEDS: oxyCODONE HCl Immed Release 5 MG TABLET PO ×2 (10:28→14:19)
[2021-07-05] MEDS: Apixaban 5 MG TABLET PO ×2 (10:28→21:08)
[2021-07-05] MEDS: Multivitamin TABLET 1 TAB PO (10:29)
[2021-07-05] MEDS: Furosemide 20 MG TABLET PO ×2 (10:29→21:07)
[2021-07-05] MEDS: FLUoxetine HCl 20 MG CAPSULE PO (10:29)
[2021-07-05] MEDS: QUEtiapine Fumarate 50 MG TABLET PO ×2 (10:29→21:07)
[2021-07-05] MEDS: Gabapentin 400 MG CAPSULE 800 MG PO ×3 (10:29→21:04)
[2021-07-05] MEDS: Cholestyramine (With Sugar) 4 GM POWD.PACK PO (10:31)
--- NOTE | 2021-07-05 10:48 | PM.CNCAR ---
History of Present Illness History of Present Illness Date of Service: 07/05/21 Requesting physician: Josefina Rollins Chief complaint: Atrial fibrillation with slow ventricular response Narrative: I was requested to see Maninder in cardiology consultation today for overnight slow heart rate in atrial fibrillation. No significant pauses greater than 5 seconds. This was during sleep hours. During the daytime is heart rate is in the 70s. He is currently on dual therapy with Cardizem and low-dose metoprolol. Also on full oral anticoagulation with Eliquis. He has no cardiac symptoms to report. He is admitted with poor wound care and cellulitis around decubitus ulcer in the sacral area. Cardiology consult was sought for slow ventricular response. Denies any palpitations, lightheadedness, dizziness. He is mostly bedbound for the last year as per him. Prior to that he was able to get out of the bed. Denies any chest pain or shortness of breath. Review of Systems Constitutional: Constitutional: Reports no additional constitutional complaints Cardiovascular: Cardiovascular: Reports no additional cardiovascular complaints Respiratory: Respiratory: Reports no additional respiratory complaints Gastrointestinal: Gastrointestinal: Reports no additional gastrointestinal complaints Genitourinary: Genitourinary: Reports no additional male genitourinary complaints Musculoskeletal: Musculoskeletal: Reports no additional musculoskeletal complaints Integumentary/Breasts: Skin/Breast: Reports system reviewed and no additional complaints, except as docu Neurologic: Reports system reviewed and no additional complaints, except as documented Psychiatric: Psychiatric: Reports no additional psychiatric complaints Endocrine: Endocrine: Reports no additional endocrine complaints Hematologic/Lymphatic: Hematologic/Lymphatic: Reports no additional hematologic/lymphatic complaints [facility] Past Medical History Medical History Acute osteomyelitis Atrial fibrillation Colostomy complication COVID Embolism Encounter for surgical aftercare following surgery of digestive system Essential hypertension Major depressive disorder Muscle weakness Paraplegia Surgical History Surgical History Hx of A Social History Social History Household Members: 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 lives above 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 apartment Housing: Apartment Housing Other:: Pt comes from [facility] Do you presently have visiting nurse or other home services: No Alcohol intake: never Patient Tobacco Use Status: Never used Tobacco service: No Current occupational status: disabled Meds Allergies Allergy/AdvReac Type Severity Reaction Status Date / Time No Known Allergies Allergy Unverified 06/11/20 15:43 [No Known Allergies*] Active Medications: Current Medications Albuterol/Ipratropium (Albuterol/Iprat 2.5/0.5mg 3 Ml Ampul.Neb) 3 ml INHALE RQID [facility] Last Admin: 07/05/21 07:25 Dose: Not Given Documented by: Apixaban (Apixaban 5 Mg Tablet) 5 mg PO BID [facility] Last Admin: 07/05/21 10:28 Dose: 5 mg Documented by: Atorvastatin Calcium (Atorvastatin Calcium 20 Mg Tablet) 20 mg PO BEDTIME [facility] Last Admin: 07/04/21 21:00 Dose: 20 mg Documented by: Cholestyramine Resin (Cholestyramine (With Sugar) 4 Gm Powd.Pack) 4 gm PO BID [facility] Last Admin: 07/05/21 10:31 Dose: 4 gm Documented by: Diltiazem HCl (Diltiazem Hcl Cd 180 Mg Cap.Er.24h) 180 mg PO DAILY [facility]; Protocol Last Admin: 07/03/21 08:40 Dose: 180 mg Documented by: Fluoxetine HCl (Fluoxetine Hcl 20 Mg Capsule) 20 mg PO DAILY [facility] Last Admin: 07/05/21 10:29 Dose: 20 mg Documented by: Furosemide (Furosemide 20 Mg Tablet) 20 mg PO BID [facility]; Protocol Last Admin: 07/05/21 10:29 Dose: 20 mg Documented by: Gabapentin (Gabapentin 400 Mg Capsule) 800 mg PO TID [facility] Last Admin: 07/05/21 10:29 Dose: 800 mg Documented by: Vancomycin HCl 1,500 mg/ (Sodium Chloride) 500 mls @ 333.333 mls/hr IV Q24H [facility] Last Infusion: 07/04/21 20:07 Dose: Infused Documented by: Sodium Chloride (Ns) 1,000 mls @ 100 mls/hr IVCONT .Q10H [facility] Last Admin: 07/05/21 10:28 Dose: 100 mls/hr Documented by: Ceftriaxone Sodium 1 gm/ (Sodium Chloride) 50 mls @ 100 mls/hr IV Q24H [facility] Last Infusion: 07/05/21 02:28 Dose: Infused Documented by: Piperacillin Sod/Tazobactam (Sod 3.375 gm/ Sodium Chloride) 50 mls @ 100 mls/hr IV Q6H [facility] Last Admin: 07/05/21 10:31 Dose: 100 mls/hr Documented by: Lisinopril (Lisinopril 5 Mg Tablet) 5 mg PO DAILY [facility]; Protocol Last Admin: 07/03/21 08:40 Dose: 5 mg Documented by: Melatonin (Melatonin 3 Mg Tablet) 6 mg PO BEDTIME PRN PRN Reason: Insomnia Metoprolol Tartrate (Metoprolol Tartrate 12.5 Mg Halftab) 12.5 mg PO BID [facility]; Protocol Last Admin: 07/05/21 10:29 Dose: Not Given Documented by: Mirtazapine (Mirtazapine 15 Mg Tablet) 15 mg PO BEDTIME [facility] Last Admin: 07/04/21 21:00 Dose: 15 mg Documented by: Multivitamins/Vitamin C (Multivitamin Tablet) 1 tab PO DAILY [facility] Last Admin: 07/05/21 10:29 Dose: 1 tab Documented by: Omeprazole (Omeprazole 20 Mg Capsule.Dr) 20 mg PO DAILY@0630 [facility] Last Admin: 07/05/21 06:18 Dose: 20 mg Documented by: Ondansetron HCl (Ondansetron Hcl 4 Mg/2 Ml Vial) 4 mg IVPUSH Q8H PRN PRN Reason: Nausea and Vomiting Oxycodone HCl (Oxycodone Hcl Immed Release 5 Mg Tablet) 5 mg PO Q6H PRN PRN Reason: Pain Last Admin: 07/05/21 10:28 Dose: 5 mg Documented by: Oxycodone HCl (Oxycodone Hcl Immed Release 5 Mg Tablet) 5 mg PO Q6H PRN PRN Reason: Pain, Severe (Pain Scale 7-10) Oxycodone HCl (Oxycodone Hcl Immed Release 5 Mg Tablet) 5 mg PO Q4H PRN PRN Reason: Pain, Moderate (Pain Scale 4-6 Pharmacy Consult (Consult Rx Perform Med Rec) 1 each MISCELLANE ONCE PRN PRN Reason: Consult order Pharmacy Consult (Consult Rx Vancomycin Dosing) 1 each MISCELLANE DAILY PRN PRN Reason: Consult order Quetiapine Fumarate (Quetiapine Fumarate 50 Mg Tablet) 50 mg PO BID [facility] Last Admin: 07/05/21 10:29 Dose: 50 mg Documented by: Sodium Chloride (0.9 % Sodium Chloride Flush 3 Ml Syringe) 3 ml IVFLUSH QSHIFT [facility] Last Admin: 07/05/21 10:28 Dose: Not Given Documented by: Home Medications Medication Instructions Recorded Confirmed Last Taken Type apixaban 5 mg tablet (Eliquis) 1 tab PO BID 04/07/21 07/02/21 Unknown History atorvastatin 20 mg tablet 1 tab PO DAILY 04/07/21 07/02/21 Unknown History cholestyramine-aspartame 4 gram 1 packet PO BID 04/07/21 07/02/21 Unknown History oral powder for susp in a packet (Cholestyramine Light) furosemide 20 mg tablet 1 tab PO BID 04/07/21 07/02/21 Unknown History mirtazapine 15 mg tablet 1 tab PO BEDTIME 04/07/21 07/02/21 Unknown History oxycodone 5 mg tablet 1 tab PO Q6H PRN 04/07/21 07/02/21 Unknown History pantoprazole 40 mg tablet,delayed 1 tab PO DAILY 04/07/21 07/03/21 Unknown History release quetiapine 50 mg tablet 1 tab PO BID 04/07/21 07/02/21 Unknown History diltiazem HCl 180 mg 1 cap PO DAILY 07/02/21 07/02/21 Unknown History capsule,extended release 24 hr fluoxetine 20 mg capsule 1 cap PO QAM 07/02/21 07/02/21 Unknown History gabapentin 800 mg tablet 1 tab PO TID 07/02/21 07/02/21 Unknown History lisinopril 5 mg tablet 1 tab PO DAILY 07/02/21 07/02/21 Unknown History metoprolol tartrate 25 mg tablet 0.5 tab PO BID 07/02/21 07/02/21 Unknown History multivitamin 1 tab PO DAILY 07/02/21 07/02/21 Unknown History ipratropium 20 mcg-albuterol 100 1 puff INHALATION QID 07/03/21 07/03/21 Unknown History mcg/actuation mist for inhalation (Combivent Respimat) Physical Exam Vital Signs: Vital Signs: Last Vital Signs Temp 97.7 F 07/05/21 08:00 Pulse 75 07/05/21 08:00 Resp 18 07/05/21 08:00 BP 131/63 07/05/21 08:00 Pulse Ox 99 07/05/21 08:00 Body Mass Index 27.4 Const: General: cooperative and comfortable Nutritional Appearance: obese Orientation/consciousness: patient oriented x3 HENMT: Head: Yes normocephalic and Yes atraumatic Neck: Neck: Yes trachea midline, Yes supple and Yes no JVD Chest: Chest palpation & inspection: normal inspection of the chest Resp: Effort & Inspection: decreased respiratory effort Auscultation: no crackles, no rales, no wheezes and diminished lung sounds Cardio: Jugular venous distension: no JVD Rate: regular rate Rhythm: abnormal rhythm irregularly irregular Heart sounds: S1 normal heart sound present and S2 normal heart sound present GI: Auscultation: normal bowel sounds Skin: General skin exam: no rashes or lesions noted Neuro: General: patient oriented x3 and no focal motor deficits Extrem: General: No clubbing, No cyanosis and Yes edema (Shiny edema of the right lower extremity. Amputation of the left lower ext) Results Labs and Meds Result diagrams: 07/05/21 05:50 07/05/21 05:50 Lab results: Laboratory Results - last 24 hr 07/05/21 07/05/21 05:50 05:50 WBC 6.8 RBC 3.45 L Hgb 9.6 L Hct 30.6 L MCV 88.7 MCH 27.8 MCHC 31.4 RDW 16.2 H Plt Count 369 MPV 9.5 Immature Gran % (Auto) 0.4 Neut % (Auto) 71.1 Lymph % (Auto) 13.6 L [place] % (Auto) 8.5 Eos % (Auto) 5.7 H Baso % (Auto) 0.7 Lymph # (Auto) 0.9 L [place] # (Auto) 0.6 Eos # (Auto) 0.4 Baso # (Auto) 0.1 Abs Immat Gran (auto) 0.03 Absolute Neuts (auto) 4.9 Absolute Nucleated RBC 0.000 Nucleated RBC % (auto) 0.0 Sodium 142 Potassium 3.5 Chloride 111 H Carbon Dioxide 26 Anion Gap 9 L BUN 8 L Creatinine 0.51 Estim Creat Clear Calc 137.4 Estimated GFR > 60 Fasting Glucose 111 H Calcium 7.4 L Total Bilirubin 0.4 AST 8 ALT 9 Alkaline Phosphatase 87 Total Protein 4.9 L Albumin 2.6 L Assessment and Plan (1) Atrial fibrillation with slow ventricular response: Status: Acute Chronic atrial fibrillation in this bed-bound elderly man who is admitted with cellulitis and decubitus ulcer, incidentally noted to have slow ventricular response overnight without any symptoms. This is most likely due to dual therapy and slowing of AV conduction. Discontinue metoprolol therapy. Continue Cardizem for now for rate control. His LV ejection fraction couple years ago was within normal limits. High risk for thromboembolic complication. Continue Eliquis 5 mg b.i.d. for anticoagulation. If heart rate remains slow, consider lowering Cardizem therapy to 120 mg daily. Currently no indication for pacing therapy. This was discussed with the patient in details. He understands and agrees. Will sign of the case. Procedures Date of Service Date of Service: 07/05/21
--- NOTE | 2021-07-05 11:51 | MHC.CLN ---
RE: CONSULT PT WITH INCREASED NUTRITION RISK R/T PRESSURE INJURY DIET RX: REGULAR-APPROPRIATE RECOMMEND ADDING ENSURE BID AND BELTRAN BID TO PROMOTE WOUND HEALING SUPPLEMENTS TO PROVIDE 860KCALS, 45G PROTEIN MONITOR PO INTAKE CLOSELY SEE ALSO CLINICAL NUTRITION ASSESSMENT
--- NOTE | 2021-07-05 12:37 | PC.NURSE ---
Skin/wound assessment completed. On admission, patient has stage 2 pressure injuries to right and left buttocks and coccyx. Also has a Stage 3 measuring 2 x 1 x 4.5 on right buttock. Small purulent drainage with slight odor draining from wound. Silver alginate tucked into wound with tail left out and silver alginate applied to surrounding stage 2 pressure injuries then covered with ABD pad and tape. Triad applied to lower Stage 2 pressure injuries on right and left buttocks. Triad applied to coccyx an covered with foam. No other skin issues noted at this time. Repositioning of patient occurring every 2 hours.
--- NOTE | 2021-07-05 13:54 | PHA.PROG ---
Admission Date/Time: July 03, 2021 14:23 Indication: Ulceration Weight in k.111 kg Adjusted body weight in K.124 kg [place] body weight in K.8 kg Serum Creatinine - Last 168 Hours 07/02/21 07/03/21 07/04/21 14:23 15:21 06:23 Creatinine 0.62 0.64 0.55 07/05/21 05:50 Creatinine 0.51 Estimated CrCl and GFR - Last 168 Hours 07/02/21 07/03/21 07/04/21 14:23 15:21 06:23 Estim Creat Clear Calc 113.0 109.5 127.4 Estimated GFR > 60 > 60 > 60 07/05/21 05:50 Estim Creat Clear Calc 137.4 Estimated GFR > 60 Vancomycin Loading Dose: None given. 1250 mg was given in the ED Current Vancomycin Dosing Regimen: 1500 mg Q24H Vancomycin Trough 8.0 mcg/mL (10.0-20.0) L 07/05/21 12:50 Pharmacist Comments on Vancomycin Plan: Trough is subtherapeutic at 8 Patient is not expected to be in theraputic ranges until after 4th day. Increase vanco to 1000 mg Q12H. Expected AUC 555 with a trough on 555 with an trough of 17.8 Next trough 07/06 @ 1300 Pharmacy will continue to monitor renal function daily Angela Dixon PharmD Vancomycin dosing will take advantage of [employer] as a clinical decision support tool that uses Bayesian modeling to calculate individual patient's pharmacokinetic parameters and forecast the patient's drug concentration time course with the target goal AUC 24 range of 400 - 600 mg/L/hr.
--- NOTE | 2021-07-05 14:00 | HO.PM.IMPN ---
Subjective Subjective Date of Service: 07/05/21 Interval History: Two separate episodes of pauses on telemetry overnight. Patient remained asymptomatic throughout. Beta-blockers DC. No further episodes Review of Systems Denies chest pain Denies shortness of Denies nausea vomiting diarrhea Physical Exam Vital Signs: Vital Signs: Last Vital Signs Temp 98.3 F 07/05/21 12:00 Pulse 88 07/05/21 12:00 Resp 18 07/05/21 12:00 BP 142/77 H 07/05/21 12:00 Pulse Ox 100 07/05/21 12:00 Body Mass Index 27.4 Const: Other: Awake alert oriented x3 no acute distress HENMT: Other: Oropharynx clear, membranes moist Resp: Other: Clear to auscultation with good aeration to all garcia. No rales Cardio: Other: No S4; positive S1-S2; no S3 without murmurs rubs or gallops GI: Other: Soft nontender nondistended normoactive bowel sounds. Function colostomy left lower quadrant Skin: Other: As previous note Extrem: Other: Left BKA; right lower extremity deformity (chronic) Objective Data Active Medications Albuterol/Ipratropium (Albuterol/Iprat 2.5/0.5mg 3 Ml Ampul.Neb) 3 ml INHALE RQID [facility] Last Admin: 07/05/21 10:59 Dose: Not Given Documented by: ALFREDO Non-Admin Reason: Patient Refused Apixaban (Apixaban 5 Mg Tablet) 5 mg PO BID [facility] Last Admin: 07/05/21 10:28 Dose: 5 mg Documented by: BLANCA Atorvastatin Calcium (Atorvastatin Calcium 20 Mg Tablet) 20 mg PO BEDTIME [facility] Last Admin: 07/04/21 21:00 Dose: 20 mg Documented by: JORGE Cholestyramine Resin (Cholestyramine (With Sugar) 4 Gm Powd.Pack) 4 gm PO BID [facility] Last Admin: 07/05/21 10:31 Dose: 4 gm Documented by: BLANCA Diltiazem HCl (Diltiazem Hcl Cd 180 Mg Cap.Er.24h) 180 mg PO DAILY [facility]; Protocol Last Admin: 07/03/21 08:40 Dose: 180 mg Documented by: HOOD Fluoxetine HCl (Fluoxetine Hcl 20 Mg Capsule) 20 mg PO DAILY [facility] Last Admin: 07/05/21 10:29 Dose: 20 mg Documented by: BLANCA Furosemide (Furosemide 20 Mg Tablet) 20 mg PO BID [facility]; Protocol Last Admin: 07/05/21 10:29 Dose: 20 mg Documented by: BLANCA Gabapentin (Gabapentin 400 Mg Capsule) 800 mg PO TID [facility] Last Admin: 07/05/21 10:29 Dose: 800 mg Documented by: BLANCA Sodium Chloride (Ns) 1,000 mls @ 100 mls/hr IVCONT .Q10H [facility] Last Admin: 07/05/21 10:28 Dose: 100 mls/hr Documented by: BLANCA Ceftriaxone Sodium 1 gm/ (Sodium Chloride) 50 mls @ 100 mls/hr IV Q24H [facility] Last Infusion: 07/05/21 02:28 Dose: 0 mls/hr Documented by: JORGE Piperacillin Sod/Tazobactam (Sod 3.375 gm/ Sodium Chloride) 50 mls @ 100 mls/hr IV Q6H [facility] Last Infusion: 07/05/21 11:11 Dose: 0 mls/hr Documented by: AZEEM Vancomycin HCl 1,000 mg/ (Sodium Chloride) 270 mls @ 270 mls/hr IV Q12H [facility] Lisinopril (Lisinopril 5 Mg Tablet) 5 mg PO DAILY [facility]; Protocol Last Admin: 07/03/21 08:40 Dose: 5 mg Documented by: HOOD Melatonin (Melatonin 3 Mg Tablet) 6 mg PO BEDTIME PRN PRN Reason: Insomnia Metoprolol Tartrate (Metoprolol Tartrate 12.5 Mg Halftab) 12.5 mg PO BID [facility]; Protocol Last Admin: 07/05/21 10:29 Dose: Not Given Documented by: BLANCA Non-Admin Reason: Decreased Heart Rate Mirtazapine (Mirtazapine 15 Mg Tablet) 15 mg PO BEDTIME [facility] Last Admin: 07/04/21 21:00 Dose: 15 mg Documented by: JORGE Multivitamins/Vitamin C (Multivitamin Tablet) 1 tab PO DAILY [facility] Last Admin: 07/05/21 10:29 Dose: 1 tab Documented by: BLANCA Omeprazole (Omeprazole 20 Mg Deniz.) 20 mg PO DAILY@0630 [facility] Last Admin: 07/05/21 06:18 Dose: 20 mg Documented by: JORGE Ondansetron HCl (Ondansetron Hcl 4 Mg/2 Ml Vial) 4 mg IVPUSH Q8H PRN PRN Reason: Nausea and Vomiting Oxycodone HCl (Oxycodone Hcl Immed Release 5 Mg Tablet) 5 mg PO Q6H PRN PRN Reason: Pain Last Admin: 07/05/21 10:28 Dose: 5 mg Documented by: BLANCA Oxycodone HCl (Oxycodone Hcl Immed Release 5 Mg Tablet) 5 mg PO Q6H PRN PRN Reason: Pain, Severe (Pain Scale 7-10) Oxycodone HCl (Oxycodone Hcl Immed Release 5 Mg Tablet) 5 mg PO Q4H PRN PRN Reason: Pain, Moderate (Pain Scale 4-6 Pharmacy Consult (Consult Rx Perform Med Rec) 1 each MISCELLANE ONCE PRN PRN Reason: Consult order Pharmacy Consult (Consult Rx Vancomycin Dosing) 1 each MISCELLANE DAILY PRN PRN Reason: Consult order Quetiapine Fumarate (Quetiapine Fumarate 50 Mg Tablet) 50 mg PO BID [facility] Last Admin: 07/05/21 10:29 Dose: 50 mg Documented by: BLANCA Sodium Chloride (0.9 % Sodium Chloride Flush 3 Ml Syringe) 3 ml IVFLUSH QSHIFT [facility] Last Admin: 07/05/21 10:28 Dose: Not Given Documented by: BLANCA Non-Admin Reason: IV Running Labs CBC & Chem 7: 07/05/21 05:50 07/05/21 05:50 Labs: Laboratory Results - last 24 hr 07/05/21 07/05/21 07/05/21 05:50 05:50 12:50 MCV 88.7 MCH 27.8 MCHC 31.4 RDW 16.2 H Plt Count 369 MPV 9.5 Immature Gran % (Auto) 0.4 Neut % (Auto) 71.1 Lymph % (Auto) 13.6 L [place] % (Auto) 8.5 Eos % (Auto) 5.7 H Baso % (Auto) 0.7 Lymph # (Auto) 0.9 L [place] # (Auto) 0.6 Eos # (Auto) 0.4 Baso # (Auto) 0.1 Abs Immat Gran (auto) 0.03 Absolute Neuts (auto) 4.9 Absolute Nucleated RBC 0.000 Nucleated RBC % (auto) 0.0 Anion Gap 9 L Estim Creat Clear Calc 137.4 Estimated GFR > 60 Fasting Glucose 111 H Calcium 7.4 L Total Bilirubin 0.4 AST 8 ALT 9 Alkaline Phosphatase 87 Total Protein 4.9 L Albumin 2.6 L Vancomycin Trough 8.0 L Microbiology Microbiology Results: Microbiology 07/03/21 11:44 Blood Culture - Preliminary Blood - Venous No growth after 48 hours. 07/03/21 11:37 Blood Culture - Preliminary Blood - Venous No growth after 48 hours. 07/02/21 20:24 Urine Culture - Final Urine clean catch - Urine means top 07/03/21 14:13 Urine Culture - Final Urine Catheterized - [place] Catheter Assessment and Plan (1) Atrial fibrillation with slow ventricular response: Status: Acute (2) Cellulitis: Status: Acute (3) Decubitus ulcer of sacral area: Status: Acute Assessment and Plan: 65-year-old male with longstanding history of sacral decubiti and worsening of his sacral wounds. He also carries a known history of AFib ; episodic pauses x2 overnight. Patient remained asymptomatic. 1. Extensive sacral and buttocks ulceration with coexisting cellulitis Blood cultures negative thus far. Will cover with ceftriaxone and Zosyn ID consult Discharge planning for home services 2. UTI in backdrop of chronic [place]ier Colonization...no rx indicated 3. Hypotension; resolved with fluids Hold antihypertensive until stable. Continue IV fluids 4. Atrial fibrillation; chronic Continue Eliquis; beta-richard T seed secondary to pauses overnight Appreciate cardiology input 5. Hyperlipidemia Continue statin as per outpatient dosing Full code DVT prophylaxis; Eliquis and Plavix Quality Stroke Does the patient have a stroke diagnosis?: No VTE Prior VTE?: No VTE Risk Level:: Medical - moderate - high VTE Device Contraindication: Treatment Not Indicated VTE Drug Contraindication: Treatment Not Indicated
[2021-07-05] MEDS: vancomycin HCL 1,000 MG in 0.9 % Sodium Chloride 250 ML 270 MG IV (14:12)
[2021-07-05] MEDS: 0.9 % Sodium Chloride Flush 3 ML SYRINGE IVFLUSH (14:13)
[2021-07-05] MEDS: Metoprolol Tartrate 12.5 MG HALFTAB PO (21:04)
[2021-07-05] MEDS: Mirtazapine 15 MG TABLET PO (21:07)
[2021-07-05] MEDS: Atorvastatin Calcium 20 MG TABLET PO (21:07)
[2021-07-06] VITALS (8 sets, daily range): BP systolic 112–159; BP diastolic 55–87; PULSE 71–86; RESP 18–19; TEMP 36.1–37.2; O2SAT 96–99
[2021-07-06] MEDS: vancomycin HCL 1,000 MG in 0.9 % Sodium Chloride 250 ML 270 MG IV ×2 (02:28→14:36)
[2021-07-06] MEDS: Piperacillin Sodium/Tazobactam 3.375 GM in 0.9 % Sodium Chloride 50 ML IV ×4 (03:58→22:56)
[2021-07-06 06:43] LABS: MANUAL DIFF FLAG NO
[2021-07-06 07:07] LABS: Basophils Percent Auto 0.7 % (0-2); Eosinophils Absolute Auto 0.4 X10*3/uL (0.0-0.4); Eosinophils Percent Auto 6.1 % (0-4); Hematocrit 29.9 % (42-52); Hemoglobin 9.5 g/dl (14.0-18.0); Imm Gran Abs Auto 0.02 X10*3/uL (0.00-0.03); Imm Gran Pct Auto 0.3 % (0.0-0.4); Lymphocytes Absolute Auto 1.1 X10*3/uL (1.2-4.9); Lymphocytes Percent Auto 17.5 % (20-40); Mean Corpuscular HGB Conc 31.8 g/dl (31.0-36.0); Mean Corpuscular Volume 88.2 fL (80-98); Mean Platelet Volume 9.3 fL (9.4-12.4); Monocytes Absolute Auto 0.5 X10*3/uL (0.1-1.2); Monocytes Percent Auto 8.9 % (2-11); Neutrophils Percent Auto 66.5 % (45-73); Platelet Count 372 X10*3/uL (160-400); Red Blood Count 3.39 X10*6/uL (4.60-5.80); Red Cell Distribution Width 15.9 % (11.0-16.0); White Blood Count 6.1 X10*3/uL (4.8-10.8)
[2021-07-06 07:22] LABS: Alanine Aminotransferase 10 U/L (0-40); Albumin Level 2.6 g/dL (3.5-5.0); Alkaline Phosphatase 83 U/L (39-117); Anion Gap 7 (12-20); Aspartate Amino Transferase 9 U/L (5-37); Bilirubin Total 0.2 mg/dL (0.0-1.0); Blood Urea Nitrogen 10 mg/dL (9-16); Calcium 7.4 mg/dL (8.4-10.2); Carbon Dioxide 29 mmol/L (22-29); Chloride 109 mmol/L (96-108); Estimated Glomerular Filt Rate > 60; Glucose Fasting 95 mg/dL (60-99); Potassium 3.8 mmol/L (3.3-5.1); Sodium 141 mmol/L (135-145); Total Protein 4.9 g/dL (6.5-8.0)
[2021-07-06] MEDS: Albuterol/Iprat 2.5/0.5MG 3 ML AMPUL.NEB INHALE (07:55)
--- NOTE | 2021-07-06 09:03 | P.CDIC_ITS ---
CDI Concurrent Query Documentation Clarification: PHYSICIAN'S DOCUMENTATION REQUEST Date of Query: 07/06/2104 Patient Name: Maninder Joe Admit Date: 07/03/21 Dear Doctor, A review of the medical record indicates additional documentation may be indicated. Please review below and update the documentation accordingly. Clinical Indicators: Risk Factors/Clinical Indicators/Treatments Wound assessment - 07/05 - Right buttock has a 4.5 cm Stage 3 pressure ulcer. Silver alignate Triad applied. Covered with ABD pad. IV Ceftriaxone, Zosyn. Bed-bound patient. Based on the above, could you please provide, in the Progress Notes, further information regarding the ulcer/wound: * Location of the ulcer/wound, including laterality * Type (etiology) of ulcer/wound: * Pressure (decubitus) ulcer * Other * Unable to determine * * If a pressure ulcer, please also include the stage* of the ulcer: * Stage 1 - Skin intact, non-blanchable redness * Stage 2 - Partial thickness loss of dermis, includes intact or open blister * Stage 3 - Full thickness tissue not including bone, tendon, or muscle * Stage 4 - Full thickness tissue loss, including exposed bones, tendon, or muscle * Unstageable - Full thickness tissue loss in which the base of the ulcer is covered by slough (yellow, joyner, means, green or brown) and/or eschar (joyner, brown, or black) in the wound bed. * Suspected deep tissue injury - Purple or maroon localized area of discolored intact skin or blood-filled blister due to damage of underlying soft tissues from pressure and/or shear. The area may be preceded by tissue that is painful, firm, mushy, boggy, warmer, or cooler as compare to adjacent tissue. * Unable to determine *Source: National Pressure Ulcer Advisory Panel (NPUAP) Use of terms such as suspected, likely, concern for, or probable (associated with a specific diagnosis that is being evaluated, monitored, or treated as if it exists) are acceptable and can be coded in the inpatient setting, when documented at the time of discharge. Thank you, Sandra Hannon [facility], CDIS Extension: [phone] Please use your independent medical judgment in providing your response. THIS QUERY IS PART OF THE PERMANENT MEDICAL RECORD Provider Response: Other Other Diagnosis: Right buttock has a 4.5 cm Stage 3 pressure ulcer.
--- NOTE | 2021-07-06 09:08 | P.CDIC_ITS ---
CDI Concurrent Query Documentation Clarification: PHYSICIAN'S DOCUMENTATION REQUEST Date of Query: 07/06/21908 Patient Name: Maninder Joe Admit Date: 07/03/21 Dear Doctor, A review of the medical record indicates additional documentation may be indicated. Please review below and update the documentation accordingly. Clinical Indicators: Risk Factors/Clinical Indicators/Treatments Wound assessment notes coccyx pressure injury Stage 2. Patient is bedbound. Triad foam done. IV Ceftriaxone, Zosyn Progress note: Extensive sacral and buttock ulceration/cellulitis. Based on the above, could you please provide, in the Progress Notes, further information regarding the ulcer/wound: * Location of the ulcer/wound, including laterality * Type (etiology) of ulcer/wound: * Pressure (decubitus) ulcer * Traumatic wound * Other * Unable to determine * * If a pressure ulcer, please also include the stage* of the ulcer: * Stage 1 - Skin intact, non-blanchable redness * Stage 2 - Partial thickness loss of dermis, includes intact or open blister * Stage 3 - Full thickness tissue not including bone, tendon, or muscle * Stage 4 - Full thickness tissue loss, including exposed bones, tendon, or muscle * Unstageable - Full thickness tissue loss in which the base of the ulcer is covered by slough (yellow, joyner, means, green or brown) and/or eschar (joyner, brown, or black) in the wound bed. * Suspected deep tissue injury - Purple or maroon localized area of discolored intact skin or blood-filled blister due to damage of underlying soft tissues from pressure and/or shear. The area may be preceded by tissue that is painful, firm, mushy, boggy, warmer, or cooler as compare to adjacent tissue. * Unable to determine *Source: National Pressure Ulcer Advisory Panel (NPUAP) Use of terms such as suspected, likely, concern for, or probable (associated with a specific diagnosis that is being evaluated, monitored, or treated as if it exists) are acceptable and can be coded in the inpatient setting, when documented at the time of discharge. Thank you, Sandra Hannon [facility], CDIS Extension: [phone] Please use your independent medical judgment in providing your response. THIS QUERY IS PART OF THE PERMANENT MEDICAL RECORD Provider Response: Other Other Diagnosis: Awaiting wound care for formal qualification
[2021-07-06] MEDS: Gabapentin 400 MG CAPSULE 800 MG PO ×3 (10:57→21:26)
[2021-07-06] MEDS: QUEtiapine Fumarate 50 MG TABLET PO ×2 (10:57→21:26)
[2021-07-06] MEDS: FLUoxetine HCl 20 MG CAPSULE PO (10:58)
[2021-07-06] MEDS: Multivitamin TABLET 1 TAB PO (10:58)
[2021-07-06] MEDS: Furosemide 20 MG TABLET PO ×2 (10:58→21:27)
[2021-07-06] MEDS: Metoprolol Tartrate 12.5 MG HALFTAB PO ×2 (10:58→21:27)
[2021-07-06] MEDS: Apixaban 5 MG TABLET PO ×2 (10:59→21:26)
[2021-07-06] MEDS: Cholestyramine (With Sugar) 4 GM POWD.PACK PO (10:59)
[2021-07-06] MEDS: 0.9 % Sodium Chloride Flush 3 ML SYRINGE IVFLUSH ×2 (10:59→17:20)
[2021-07-06] MEDS: 0.9 % Sodium Chloride 1,000 ML 100 ML IVCONT (11:02)
[2021-07-06] MEDS: oxyCODONE HCl Immed Release 5 MG TABLET PO ×2 (11:15→17:29)
[2021-07-06 13:23] LABS: Vancomycin Trough 11.3 mcg/mL (10.0-20.0)
--- NOTE | 2021-07-06 16:03 | P.PNIM_ITS ---
Subjective Subjective Date of Service: 07/06/21 Interval History: No acute events overnight. Monitor NSR without pauses Review of Systems Denies chest pain Denies shortness of Denies nausea vomiting diarrhea Physical Exam Vital Signs: Vital Signs: Last Vital Signs Temp 97.4 F 07/06/21 11:16 Pulse 80 07/06/21 11:16 Resp 18 07/06/21 11:16 BP 159/87 H 07/06/21 11:16 Pulse Ox 98 07/06/21 11:16 Body Mass Index 27.4 Const: Other: Awake alert oriented x3 no acute distress HENMT: Other: Oropharynx clear, membranes moist Resp: Other: Clear to auscultation with good aeration to all garcia. No rales Cardio: Other: No S4; positive S1-S2; no S3 without murmurs rubs or gallops GI: Other: Soft nontender nondistended normoactive bowel sounds. Function colostomy left lower quadrant : Other: Please see H&P photo Skin: Other: As previous note Extrem: Other: Left BKA; right lower extremity deformity (chronic) Objective Data Active Medications Albuterol/Ipratropium (Albuterol/Iprat 2.5/0.5mg 3 Ml Ampul.Neb) 3 ml INHALE RQID [facility] Last Admin: 07/06/21 15:48 Dose: Not Given Documented by: PRETTY Non-Admin Reason: Patient Refused Apixaban (Apixaban 5 Mg Tablet) 5 mg PO BID [facility] Last Admin: 07/06/21 10:59 Dose: 5 mg Documented by: ERUM Atorvastatin Calcium (Atorvastatin Calcium 20 Mg Tablet) 20 mg PO BEDTIME [facility] Last Admin: 07/05/21 21:07 Dose: 20 mg Documented by: MARTA Cholestyramine Resin (Cholestyramine (With Sugar) 4 Gm Powd.Pack) 4 gm PO BID [facility] Last Admin: 07/06/21 10:59 Dose: 4 gm Documented by: ERUM Diltiazem HCl (Diltiazem Hcl Cd 180 Mg Cap.Er.24h) 180 mg PO DAILY [facility]; Protocol Last Admin: 07/03/21 08:40 Dose: 180 mg Documented by: HOOD Fluoxetine HCl (Fluoxetine Hcl 20 Mg Capsule) 20 mg PO DAILY [facility] Last Admin: 07/06/21 10:58 Dose: 20 mg Documented by: ERUM Furosemide (Furosemide 20 Mg Tablet) 20 mg PO BID [facility]; Protocol Last Admin: 07/06/21 10:58 Dose: 20 mg Documented by: ERUM Gabapentin (Gabapentin 400 Mg Capsule) 800 mg PO TID [facility] Last Admin: 07/06/21 14:36 Dose: 800 mg Documented by: ERUM Ceftriaxone Sodium 1 gm/ (Sodium Chloride) 50 mls @ 100 mls/hr IV Q24H [facility] Last Infusion: 07/06/21 00:38 Dose: 100 mls/hr Documented by: KAYLEE Piperacillin Sod/Tazobactam (Sod 3.375 gm/ Sodium Chloride) 50 mls @ 100 mls/hr IV Q6H [facility] Last Infusion: 07/06/21 11:40 Dose: 0 mls/hr Documented by: ERUM Vancomycin HCl 1,000 mg/ (Sodium Chloride) 270 mls @ 270 mls/hr IV Q12H [facility] Last Admin: 07/06/21 14:36 Dose: 270 mls/hr Documented by: ERUM Lisinopril (Lisinopril 5 Mg Tablet) 5 mg PO DAILY [facility]; Protocol Last Admin: 07/03/21 08:40 Dose: 5 mg Documented by: HOOD Melatonin (Melatonin 3 Mg Tablet) 6 mg PO BEDTIME PRN PRN Reason: Insomnia Metoprolol Tartrate (Metoprolol Tartrate 12.5 Mg Halftab) 12.5 mg PO BID [facility]; Protocol Last Admin: 07/06/21 10:58 Dose: 12.5 mg Documented by: ERUM Mirtazapine (Mirtazapine 15 Mg Tablet) 15 mg PO BEDTIME [facility] Last Admin: 07/05/21 21:07 Dose: 15 mg Documented by: MARTA Multivitamins/Vitamin C (Multivitamin Tablet) 1 tab PO DAILY [facility] Last Admin: 07/06/21 10:58 Dose: 1 tab Documented by: ERUM Omeprazole (Omeprazole 20 Mg Capsule.Dr) 20 mg PO DAILY@0630 [facility] Last Admin: 07/06/21 05:57 Dose: Not Given Documented by: KAYLEE Non-Admin Reason: Patient Refused Ondansetron HCl (Ondansetron Hcl 4 Mg/2 Ml Vial) 4 mg IVPUSH Q8H PRN PRN Reason: Nausea and Vomiting Oxycodone HCl (Oxycodone Hcl Immed Release 5 Mg Tablet) 5 mg PO Q6H PRN PRN Reason: Pain Last Admin: 07/06/21 11:15 Dose: 5 mg Documented by: ERUM Oxycodone HCl (Oxycodone Hcl Immed Release 5 Mg Tablet) 5 mg PO Q6H PRN PRN Reason: Pain, Severe (Pain Scale 7-10) Last Admin: 07/05/21 14:19 Dose: 5 mg Documented by: AZEEM Oxycodone HCl (Oxycodone Hcl Immed Release 5 Mg Tablet) 5 mg PO Q4H PRN PRN Reason: Pain, Moderate (Pain Scale 4-6 Pharmacy Consult (Consult Rx Perform Med Rec) 1 each MISCELLANE ONCE PRN PRN Reason: Consult order Pharmacy Consult (Consult Rx Vancomycin Dosing) 1 each MISCELLANE DAILY PRN PRN Reason: Consult order Quetiapine Fumarate (Quetiapine Fumarate 50 Mg Tablet) 50 mg PO BID [facility] Last Admin: 07/06/21 10:57 Dose: 50 mg Documented by: ERUM Sodium Chloride (0.9 % Sodium Chloride Flush 3 Ml Syringe) [facility] Last Admin: 07/06/21 10:59 Dose: 3 ml Documented by: ERUM Labs CBC & Chem 7: 07/06/21 06:40 07/06/21 06:40 Labs: Laboratory Results - last 24 hr 07/06/21 07/06/21 07/06/21 06:40 06:40 12:46 MCV 88.2 MCH 28.0 MCHC 31.8 RDW 15.9 Plt Count 372 MPV 9.3 L Immature Gran % (Auto) 0.3 Neut % (Auto) 66.5 Lymph % (Auto) 17.5 L [place] % (Auto) 8.9 Eos % (Auto) 6.1 H Baso % (Auto) 0.7 Lymph # (Auto) 1.1 L [place] # (Auto) 0.5 Eos # (Auto) 0.4 Baso # (Auto) 0.0 Abs Immat Gran (auto) 0.02 Absolute Neuts (auto) 4.0 Absolute Nucleated RBC 0.000 Nucleated RBC % (auto) 0.0 Anion Gap 7 L Estim Creat Clear Calc 143.0 Estimated GFR > 60 Fasting Glucose 95 Calcium 7.4 L Total Bilirubin 0.2 AST 9 ALT 10 Alkaline Phosphatase 83 Total Protein 4.9 L Albumin 2.6 L Vancomycin Trough 11.3 Microbiology Microbiology Results: Microbiology 07/03/21 11:44 Blood Culture - Preliminary Blood - Venous No growth after 48 hours. 07/03/21 11:37 Blood Culture - Preliminary Blood - Venous No growth after 48 hours. 07/02/21 20:24 Urine Culture - Final Urine clean catch - Urine means top Assessment and Plan (1) Atrial fibrillation with slow ventricular response: Status: Acute Assessment and Plan: 65-year-old male with longstanding history of sacral decubiti and worsening of his sacral wounds. He also carries a known history of AFib ;. Patient remained asymptomatic. 1. Extensive sacral and buttocks ulceration with coexisting cellulitis Blood cultures negative thus far. Will cover with ceftriaxone and Zosyn Discharge planning for home services 2. UTI in backdrop of chronic [place] Colonization...no rx indicated 3. Hypotension; resolved with fluids Hold antihypertensive until stable. Continue IV fluids 4. Atrial fibrillation; chronic Continue Eliquis; no further beta blockade 5. Hyperlipidemia Continue statin as per outpatient dosing Full code DVT prophylaxis; Eliquis and Plavix Quality Stroke Does the patient have a stroke diagnosis?: No VTE Prior VTE?: No VTE Risk Level:: Medical - moderate - high VTE Device Contraindication: Treatment Not Indicated VTE Drug Contraindication: Treatment Not Indicated
[2021-07-06 20:11] LABS: Glucose, Whole Blood 92 mg/dL (60-115)
[2021-07-06] MEDS: Mirtazapine 15 MG TABLET PO (21:27)
[2021-07-06] MEDS: cefTRIAXone sodium 1 GM in 0.9 % Sodium Chloride 50 ML IV (21:27)
[2021-07-06] MEDS: Atorvastatin Calcium 20 MG TABLET PO (21:27)
[2021-07-07] MEDS: vancomycin HCL 1,000 MG in 0.9 % Sodium Chloride 250 ML 270 MG IV (02:49)
[2021-07-07] MEDS: Piperacillin Sodium/Tazobactam 3.375 GM in 0.9 % Sodium Chloride 50 ML IV ×2 (05:29→10:13)
[2021-07-07 07:27] LABS: Creatinine Clr Calc Pharmacy 132.2; Estimated Glomerular Filt Rate > 60
[2021-07-07 07:42] VITALS: BP 142/79; PULSE 75; RESP 18; TEMP 36.6; O2SAT 96
[2021-07-07] MEDS: Cholestyramine (With Sugar) 4 GM POWD.PACK PO ×2 (10:11→21:23)
[2021-07-07] MEDS: 0.9 % Sodium Chloride Flush 3 ML SYRINGE IVFLUSH ×3 (10:11→21:26)
[2021-07-07] MEDS: Multivitamin TABLET 1 TAB PO (10:11)
[2021-07-07 10:12] VITALS: BP 142/79; PULSE 75
[2021-07-07] MEDS: Metoprolol Tartrate 12.5 MG HALFTAB PO ×2 (10:12→21:24)
[2021-07-07] MEDS: FLUoxetine HCl 20 MG CAPSULE PO (10:12)
[2021-07-07] MEDS: Apixaban 5 MG TABLET PO ×2 (10:12→21:24)
[2021-07-07] MEDS: Gabapentin 400 MG CAPSULE 800 MG PO ×3 (10:12→21:23)
[2021-07-07] MEDS: Furosemide 20 MG TABLET PO ×2 (10:12→21:27)
[2021-07-07] MEDS: QUEtiapine Fumarate 50 MG TABLET PO ×2 (10:12→21:24)
[2021-07-07] MEDS: oxyCODONE HCl Immed Release 5 MG TABLET PO ×2 (10:21→17:01)
[2021-07-07 11:06] VITALS: BP 141/74; PULSE 92; RESP 18; TEMP 36.2; O2SAT 99
--- NOTE | 2021-07-07 12:29 | MHC.CLN ---
Addendum entered by Madeleine Balderas, JULIA 07/07/21 13:34: AGREE WITH PROVIDER'S ASSESSMENT BELOW Original Note: F/U PT WITH INCREASED NUTRITION RISK R/T PRESSURE INJURY DIET RX: REGULAR-APPROPRIATE PO INTAKE REPORTED 100% X 2 MEALS 75% X 3 MEALS PT STATED HE HAS NOT RECEIVED ENSURE SUPPLEMENT ON HIS TRA[employer] NOTIFIED MONITOR PO INTAKE CLOSELY
--- NOTE | 2021-07-07 13:00 | CA_ITS ---
Transthoracic Echocardiogram Patient (Last, First, Middle): Maninder Joe J Gender: Male Date of : 1955 Age: 65 Procedure Date: 07/07/2021 Procedure Type: Transthoracic Echocardiogram Location: [facility] – [place], [place] Height: 167.64 cm Weight: 77.11 kg BSA: 1.87 m2 Heart Rate: bpm BP: 141 / 74 mmHg Ict Support Engineer: Referring MD: Bong Acosta MD Patient Care Assistant: Luis F Alcaraz MD Symptoms: NSVT Study Quality: Fair ECG Rhythm: Atrial Fibrillation Conclusions: - 1. Normal LV systolic function 2. Moderately dilated left atrium 3. Mild aortic regurgitation 4. Mildly dilated ascending aorta 5. Normal RV systolic pressure 6. No pericardial effusion Findings Left Ventricle Normal left ventricular size and systolic function. There is mildly increased left ventricular wall thickness. The visually estimated ejection fraction is between 55-60%. Diastolic function is indeterminate on the basis of available data. Right Ventricle Normal right ventricular cavity size. There is low normal right ventricular systolic function. Atria The left atrium is moderately dilated. Interatrial shunt cannot be excluded. The right atrium is normal in size. Aortic Valve There is moderate thickening of the aortic valve. There is no aortic valve stenosis. There is mild aortic valve regurgitation. Mitral Valve There is mild anterior and posterior mitral leaflet thickening. There is mild mitral valve regurgitation. There is no mitral valve stenosis. Pulmonic Valve The pulmonic valve was not well visualized. Tricuspid Valve There is mild tricuspid valve regurgitation. The right ventricular systolic pressure is 16 mmHg. Normal right atrial pressure. There is no evidence of pulmonary hypertension. Great Vessels The pulmonary artery was not well visualized. There is mild dilatation of the ascending aorta measuring 4.30 cm. Venous The inferior vena cava is normal in size and collapses greater than 50% with inspiration. Pericardium/Pleural There is no evidence of pericardial effusion. Prior Study Comparison Changes noted compared to prior study dated: 04/05/2019. mild aortic regurgitation is noted Measurements 2D Linear Measurements IVSd: 1.27 0.6-0.9/0.6-1.0 cm LVIDd: 3.67 3.9-5.3/4.2-5.9 cm LVIDd Index: 1.96 2.4-3.2/2.2-3.1 cm/m2 LVIDs: 2.67 2.0-3.6 cm LVPWd: 1.24 0.7-1.1 cm Ao Root: 3.90 2.1-3.5 cm LA Diam: 4.10 2.7-3.8/3.0-4.0 cm LAIDs Index: 2.19 1.5-2.3 cm/m2 LV Mass: 194.06 67-162/88-224 g LV Mass Index: 103.78 43-95/49-115 g/m2 LVOT Diam: 2.00 3.0+(-)1.3 cm Mitral Valve MV Pk E: 1.31 MV Decel Time: 142.00 E'Lateral: 14.70 E'Medial: 15.00 E/E' Med: 8.70 E/E' Lat: 8.90 PHT: 41.00 MVA PHT: 5.37 Decel Pl[place]: 9.26 Aortic Valve AoV Pk Karlos: 0.92 AoV Mn Karlos: 0.65 AoV VTI: 0.16 AoV Pk Grad: 3.00 Aov Mn Grad: 2.00 MAMADOU Cont.VTI: 3.50 LVOT LVOT Pk Karlos: 0.88 LVOT Mn Karlos: 0.57 LVOT VTI: 0.18 LVOT Pk Grad: 3.00 LVOT Mn Grad: 1.00 LVOT Diam: 2.00 LVOT Area: 3.14 Diastolic Function MV Pk E: 1.31 E'Medial: 15.00 E/E' Med: 8.70 E' Laterial: 14.70 E/E' Lat: 8.90 Tricuspid Valve TR Pk Karlos: 1.78 TR Pk Grad: 13.00 RA Press: 3.00 RVSP: 16.00 Great Vessels Aorta Ao Root-2D: 3.90 2.0-3.7 cm Ao Asc: 4.30 2.1-3.4 cm Updated in Other Vendor System with Status of Final Luis F Alcaraz MD electronically signed on 07/07/2021 4:22:48 PM with status of Final
--- NOTE | 2021-07-07 13:09 | P.PNIM_ITS ---
Subjective Subjective Date of Service: 07/07/21 Interval History: cc: blocked barth interval history: was not symptomatic during a NSVT episode, askiung to go home Cardiovascular Cardiovascular: Reports no additional cardiovascular complaints Respiratory Respiratory: Reports no additional respiratory complaints Physical Exam Vital Signs: Vital Signs: Last Vital Signs Temp 97.1 F 07/07/21 11:06 Pulse 92 07/07/21 11:06 Resp 18 07/07/21 11:06 BP 141/74 H 07/07/21 11:06 Pulse Ox 99 07/07/21 11:06 Body Mass Index 27.4 Const Other:?Awake alert oriented x3 no acute distress HENMT Other:?Oropharynx clear, membranes moist Resp Other:?Clear to auscultation with good aeration to all garcia.? No rales Cardio Other:?No S4; positive S1-S2; no S3 without murmurs rubs or gallops GI Other:?Soft nontender nondistended normoactive bowel sounds.? Function colostomy left lower quadrant Other:?Please see H&P photo Skin Other:?As previous note Extrem Other:?Left BKA; right lower extremity deformity (chronic) Objective Data Active Medications Albuterol/Ipratropium (Albuterol/Iprat 2.5/0.5mg 3 Ml Ampul.Neb) 3 ml INHALE RQID [facility] Last Admin: 07/07/21 12:08 Dose: Not Given Documented by: PRETTY Non-Admin Reason: Patient Refused Apixaban (Apixaban 5 Mg Tablet) 5 mg PO BID [facility] Last Admin: 07/07/21 10:12 Dose: 5 mg Documented by: JULIA Atorvastatin Calcium (Atorvastatin Calcium 20 Mg Tablet) 20 mg PO BEDTIME [facility] Last Admin: 07/06/21 21:27 Dose: 20 mg Documented by: AMIRA Cholestyramine Resin (Cholestyramine (With Sugar) 4 Gm Powd.Pack) 4 gm PO BID [facility] Last Admin: 07/07/21 10:11 Dose: 4 gm Documented by: JULIA Diltiazem HCl (Diltiazem Hcl Cd 180 Mg Cap.Er.24h) 180 mg PO DAILY [facility]; Protocol Last Admin: 07/03/21 08:40 Dose: 180 mg Documented by: HOOD Fluoxetine HCl (Fluoxetine Hcl 20 Mg Capsule) 20 mg PO DAILY [facility] Last Admin: 07/07/21 10:12 Dose: 20 mg Documented by: JULIA Furosemide (Furosemide 20 Mg Tablet) 20 mg PO BID [facility]; Protocol Last Admin: 07/07/21 10:12 Dose: 20 mg Documented by: JULIA Gabapentin (Gabapentin 400 Mg Capsule) 800 mg PO TID [facility] Last Admin: 07/07/21 10:12 Dose: 800 mg Documented by: JULIA Lisinopril (Lisinopril 5 Mg Tablet) 5 mg PO DAILY [facility]; Protocol Last Admin: 07/03/21 08:40 Dose: 5 mg Documented by: HOOD Melatonin (Melatonin 3 Mg Tablet) 6 mg PO BEDTIME PRN PRN Reason: Insomnia Metoprolol Tartrate (Metoprolol Tartrate 12.5 Mg Halftab) 12.5 mg PO BID [facility]; Protocol Last Admin: 07/07/21 10:12 Dose: 12.5 mg Documented by: JULIA Mirtazapine (Mirtazapine 15 Mg Tablet) 15 mg PO BEDTIME [facility] Last Admin: 07/06/21 21:27 Dose: 15 mg Documented by: AMIRA Multivitamins/Vitamin C (Multivitamin Tablet) 1 tab PO DAILY [facility] Last Admin: 07/07/21 10:11 Dose: 1 tab Documented by: JULIA Omeprazole (Omeprazole 20 Mg Capsule.Dr) 20 mg PO DAILY@0630 [facility] Last Admin: 07/07/21 05:32 Dose: Not Given Documented by: AMIRA Non-Admin Reason: IV Running Ondansetron HCl (Ondansetron Hcl 4 Mg/2 Ml Vial) 4 mg IVPUSH Q8H PRN PRN Reason: Nausea and Vomiting Oxycodone HCl (Oxycodone Hcl Immed Release 5 Mg Tablet) 5 mg PO Q6H PRN PRN Reason: Pain Last Admin: 07/07/21 10:21 Dose: 5 mg Documented by: JULIA Oxycodone HCl (Oxycodone Hcl Immed Release 5 Mg Tablet) 5 mg PO Q6H PRN PRN Reason: Pain, Severe (Pain Scale 7-10) Last Admin: 07/05/21 14:19 Dose: 5 mg Documented by: AZEEM Oxycodone HCl (Oxycodone Hcl Immed Release 5 Mg Tablet) 5 mg PO Q4H PRN PRN Reason: Pain, Moderate (Pain Scale 4-6 Last Admin: 07/06/21 17:29 Dose: 5 mg Documented by: JODI Pharmacy Consult (Consult Rx Perform Med Rec) 1 each MISCELLANE ONCE PRN PRN Reason: Consult order Pharmacy Consult (Consult Rx Vancomycin Dosing) 1 each MISCELLANE DAILY PRN PRN Reason: Consult order Quetiapine Fumarate (Quetiapine Fumarate 50 Mg Tablet) 50 mg PO BID [facility] Last Admin: 07/07/21 10:12 Dose: 50 mg Documented by: JULIA Sodium Chloride (0.9 % Sodium Chloride Flush 3 Ml Syringe) 3 ml IVFLUSH QSHIFT [facility] Last Admin: 07/07/21 10:11 Dose: 3 ml Documented by: JULIA Labs CBC & Chem 7: 07/06/21 06:40 07/07/21 06:32 Labs: Laboratory Results - last 24 hr 07/06/21 07/06/21 07/07/21 12:46 20:07 06:32 Estim Creat Clear Calc 132.2 Estimated GFR > 60 POC Glucose 92 Vancomycin Trough 11.3 Assessment and Plan (1) Atrial fibrillation with slow ventricular response: Status: Acute Assessment and Plan: 65-year-old male with longstanding history of sacral decubiti and worsening of his sacral wounds. He also carries a known history of AFib ;. Patient remained asymptomatic. Extensive sacral and buttocks ulceration continue local care does not look actively infected, will dc antibiotics UTI in backdrop of chronic [place] Colonization...no rx indicated, antibiotics dced Atrial fibrillation; chronic Continue Eliquis; lopressor (continuing for now as had NSVT), cardizem monitor for miky NSVT check echo, monitor HLD statin obstructed barth resolved Full code DVT prophylaxis; Eliquis and Plavix Quality Stroke Does the patient have a stroke diagnosis?: No VTE Prior VTE?: No VTE Risk Level:: Medical - moderate - high VTE Device Contraindication: Treatment Not Indicated VTE Drug Contraindication: Treatment Not Indicated
[2021-07-07 15:14] VITALS: BP 122/69; PULSE 86; RESP 18; TEMP 36.7; O2SAT 96
[2021-07-07 20:00] VITALS: BP 139/66; PULSE 87; RESP 18; TEMP 36.9; O2SAT 95
[2021-07-07 21:24] VITALS: BP 139/61; PULSE 87
[2021-07-07] MEDS: Atorvastatin Calcium 20 MG TABLET PO (21:24)
[2021-07-07] MEDS: Mirtazapine 15 MG TABLET PO (21:24)
[2021-07-08] VITALS: BP 116/66; PULSE 78; RESP 18; TEMP 36.4; O2SAT 94
[2021-07-08 04:00] VITALS: BP 101/57; PULSE 71; RESP 18; TEMP 36.3; O2SAT 96
[2021-07-08 06:09] LABS: Hematocrit 32.2 % (42-52); Hemoglobin 10.1 g/dl (14.0-18.0); Mean Corpuscular HGB Conc 31.4 g/dl (31.0-36.0); Mean Corpuscular Hemoglobin 27.1 pg (27.0-33.0); Mean Corpuscular Volume 86.3 fL (80-98); Platelet Count 401 X10*3/uL (160-400); Red Blood Count 3.73 X10*6/uL (4.60-5.80); Red Cell Distribution Width 15.9 % (11.0-16.0); White Blood Count 8.2 X10*3/uL (4.8-10.8)
[2021-07-08 06:35] LABS: Anion Gap 9 (12-20); Blood Urea Nitrogen 14 mg/dL (9-16); Calcium 8.3 mg/dL (8.4-10.2); Carbon Dioxide 30 mmol/L (22-29); Chloride 105 mmol/L (96-108); Estimated Glomerular Filt Rate > 60; Glucose Fasting 93 mg/dL (60-99); Magnesium 2.1 mg/dL (1.6-2.6); Potassium 4.4 mmol/L (3.3-5.1); Sodium 140 mmol/L (135-145)
[2021-07-08 07:23] VITALS: BP 118/58; PULSE 66; RESP 18; TEMP 36.3; O2SAT 95
--- NOTE | 2021-07-08 08:54 | P.CDIC_ITS ---
CDI Concurrent Query Documentation Clarification: PHYSICIAN'S DOCUMENTATION REQUEST Date of Query: 07/08/21 0855 Patient Name: Maninder Joe Admit Date: 07/03/21 Dear Doctor, A review of the medical record indicates additional documentation may be indicated. Please review below and update the documentation accordingly. Clinical Indicators: Risk Factors/Clinical Indicators/Treatments Wound assessment 07/05 noted right buttock has a 4.5 cm Stage 3 pressure ulcer. Silver alignate Triad applied Patient is bedbound. Covered with ABD pad Based on the above, could you please provide, in the Progress Notes, further information regarding the ulcer/wound: * Location of the ulcer/wound, including laterality * Type (etiology) of ulcer/wound: * * Venous stasis ulcer * Arterial (ischemic) ulcer * Pressure (decubitus) * Other * Unable to determine * For a non-pressure ulcer, please indicate the depth/severity: * Limited to the breakdown of skin * With fat layer exposed * With necrosis of muscle * With necrosis of bone * Other * Unable to determine * If a pressure ulcer, please also include the stage* of the ulcer: * Stage 1 - Skin intact, non-blanchable redness * Stage 2 - Partial thickness loss of dermis, includes intact or open blister * Stage 3 - Full thickness tissue not including bone, tendon, or muscle * Stage 4 - Full thickness tissue loss, including exposed bones, tendon, or muscle * Unstageable - Full thickness tissue loss in which the base of the ulcer is covered by slough (yellow, joyner, means, green or brown) and/or eschar (joyner, brown, or black) in the wound bed. * Suspected deep tissue injury - Purple or maroon localized area of discolored intact skin or blood-filled blister due to damage of underlying soft tissues from pressure and/or shear. The area may be preceded by tissue that is painful, firm, mushy, boggy, warmer, or cooler as compare to adjacent tissue. * Unable to determine *Source: National Pressure Ulcer Advisory Panel (NPUAP) Use of terms such as suspected, likely, concern for, or probable (associated with a specific diagnosis that is being evaluated, monitored, or treated as if it exists) are acceptable and can be coded in the inpatient setting, when documented at the time of discharge. Thank you, Sandra Hannon [facility], CDIS Extension: [phone] Please use your independent medical judgment in providing your response. THIS QUERY IS PART OF THE PERMANENT MEDICAL RECORD Provider Response: Other Other Diagnosis: stage III sacral ulcer
--- NOTE | 2021-07-08 08:54 | MHC.CDI.CONC ---
CDI Concurrent Query Documentation Clarification: PHYSICIAN'S DOCUMENTATION REQUEST Date of Query: 07/08/21 0855 Patient Name: Maninder Joe Admit Date: 07/03/21 Dear Doctor, A review of the medical record indicates additional documentation may be indicated. Please review below and update the documentation accordingly. Clinical Indicators: Risk Factors/Clinical Indicators/Treatments Wound assessment 07/05 noted right buttock has a 4.5 cm Stage 3 pressure ulcer. Silver alignate Triad applied Patient is bedbound. Covered with ABD pad Based on the above, could you please provide, in the Progress Notes, further information regarding the ulcer/wound: Location of the ulcer/wound, including laterality Type (etiology) of ulcer/wound: Venous stasis ulcer Arterial (ischemic) ulcer Pressure (decubitus) Other Unable to determine For a non-pressure ulcer, please indicate the depth/severity: Limited to the breakdown of skin With fat layer exposed With necrosis of muscle With necrosis of bone Other Unable to determine If a pressure ulcer, please also include the stage* of the ulcer: Stage 1 - Skin intact, non-blanchable redness Stage 2 - Partial thickness loss of dermis, includes intact or open blister Stage 3 - Full thickness tissue not including bone, tendon, or muscle Stage 4 - Full thickness tissue loss, including exposed bones, tendon, or muscle Unstageable - Full thickness tissue loss in which the base of the ulcer is covered by slough (yellow, joyner, means, green or brown) and/or eschar (jonyer, brown, or black) in the wound bed. Suspected deep tissue injury - Purple or maroon localized area of discolored intact skin or blood-filled blister due to damage of underlying soft tissues from pressure and/or shear. The area may be preceded by tissue that is painful, firm, mushy, boggy, warmer, or cooler as compare to adjacent tissue. Unable to determine *Source: National Pressure Ulcer Advisory Panel (NPUAP) Use of terms such as suspected, likely, concern for, or probable (associated with a specific diagnosis that is being evaluated, monitored, or treated as if it exists) are acceptable and can be coded in the inpatient setting, when documented at the time of discharge. Thank you, Sandra Hannon [facility], CDIS Extension: [phone] Please use your independent medical judgment in providing your response. THIS QUERY IS PART OF THE PERMANENT MEDICAL RECORD Provider Response: Other Other Diagnosis: stage III sacral ulcer
--- NOTE | 2021-07-08 08:58 | P.CDIC_ITS ---
CDI Concurrent Query Documentation Clarification: PHYSICIAN'S DOCUMENTATION REQUEST Date of Query: 07/08/21 0858 Patient Name: Maninder Joe Admit Date: 07/03/21 Dear Doctor, A review of the medical record indicates additional documentation may be indicated. Please review below and update the documentation accordingly. Clinical Indicators: Risk Factors/Clinical Indicators/Treatments Wound assessment noted pressure injury coccyx Stage 2. patient is bedbound. Triad foam applied. Progress note - Extensive sacral and buttock ulceration/cellulitis. Based on the above, could you please provide, in the Progress Notes, further information regarding the ulcer/wound: * Location of the ulcer/wound, including laterality * Type (etiology) of ulcer/wound: * Diabetic ulcer * Venous stasis ulcer * Arterial (ischemic) ulcer * Pressure (decubitus) ulcer * Other * Unable to determine * For a non-pressure ulcer, please indicate the depth/severity: * Limited to the breakdown of skin * With fat layer exposed * With necrosis of muscle * With necrosis of bone * Other * Unable to determine * If a pressure ulcer, please also include the stage* of the ulcer: * Stage 1 - Skin intact, non-blanchable redness * Stage 2 - Partial thickness loss of dermis, includes intact or open blister * Stage 3 - Full thickness tissue not including bone, tendon, or muscle * Stage 4 - Full thickness tissue loss, including exposed bones, tendon, or muscle * Unstageable - Full thickness tissue loss in which the base of the ulcer is covered by slough (yellow, joyner, means, green or brown) and/or eschar (joyner, brown, or black) in the wound bed. * Suspected deep tissue injury - Purple or maroon localized area of discolored intact skin or blood-filled blister due to damage of underlying soft tissues from pressure and/or shear. The area may be preceded by tissue that is painful, firm, mushy, boggy, warmer, or cooler as compare to adjacent tissue. * Unable to determine *Source: National Pressure Ulcer Advisory Panel (NPUAP) Use of terms such as suspected, likely, concern for, or probable (associated with a specific diagnosis that is being evaluated, monitored, or treated as if it exists) are acceptable and can be coded in the inpatient setting, when documented at the time of discharge. Thank you, Sandra Hannon [facility], CDIS Extension: [phone] Please use your independent medical judgment in providing your response. THIS QUERY IS PART OF THE PERMANENT MEDICAL RECORD
--- NOTE | 2021-07-08 08:58 | MHC.CDI.CONC ---
CDI Concurrent Query Documentation Clarification: PHYSICIAN'S DOCUMENTATION REQUEST Date of Query: 07/08/21 0858 Patient Name: Maninder Joe Admit Date: 07/03/21 Dear Doctor, A review of the medical record indicates additional documentation may be indicated. Please review below and update the documentation accordingly. Clinical Indicators: Risk Factors/Clinical Indicators/Treatments Wound assessment noted pressure injury coccyx Stage 2. patient is bedbound. Triad foam applied. Progress note - Extensive sacral and buttock ulceration/cellulitis. Based on the above, could you please provide, in the Progress Notes, further information regarding the ulcer/wound: Location of the ulcer/wound, including laterality Type (etiology) of ulcer/wound: Diabetic ulcer Venous stasis ulcer Arterial (ischemic) ulcer Pressure (decubitus) ulcer Other Unable to determine For a non-pressure ulcer, please indicate the depth/severity: Limited to the breakdown of skin With fat layer exposed With necrosis of muscle With necrosis of bone Other Unable to determine If a pressure ulcer, please also include the stage* of the ulcer: Stage 1 - Skin intact, non-blanchable redness Stage 2 - Partial thickness loss of dermis, includes intact or open blister Stage 3 - Full thickness tissue not including bone, tendon, or muscle Stage 4 - Full thickness tissue loss, including exposed bones, tendon, or muscle Unstageable - Full thickness tissue loss in which the base of the ulcer is covered by slough (yellow, joyner, means, green or brown) and/or eschar (joyner, brown, or black) in the wound bed. Suspected deep tissue injury - Purple or maroon localized area of discolored intact skin or blood-filled blister due to damage of underlying soft tissues from pressure and/or shear. The area may be preceded by tissue that is painful, firm, mushy, boggy, warmer, or cooler as compare to adjacent tissue. Unable to determine *Source: National Pressure Ulcer Advisory Panel (NPUAP) Use of terms such as suspected, likely, concern for, or probable (associated with a specific diagnosis that is being evaluated, monitored, or treated as if it exists) are acceptable and can be coded in the inpatient setting, when documented at the time of discharge. Thank you, Sandra Hannon [facility], CDIS Extension: [phone] Please use your independent medical judgment in providing your response. THIS QUERY IS PART OF THE PERMANENT MEDICAL RECORD
--- NOTE | 2021-07-08 09:59 | MHC.CM.PN ---
Addendum entered by Berta Moyer 07/08/21 10:03: BLS TRANSPORT WILL BE NEEDED. PT IS BKA AND UNABLE TO ASSIST WITH TRANSPORTS DUE TO DECONDITIONING. AWAITING MOOSE EVAL TO INCREASE INSEAM TRIMMER HOURS, AND GET A HOSPITAL BED AND ABHIJIT LIFT. Original Note: CURRENT DC PLAN IS HOME WITH [facility] AND [facility]. PT WILL NEED A COUPON FOR INITIAL MEDICATION COVERAGE.
[2021-07-08] MEDS: Gabapentin 400 MG CAPSULE 800 MG PO ×2 (10:48→15:19)
[2021-07-08] MEDS: Metoprolol Tartrate 12.5 MG HALFTAB PO (10:48)
[2021-07-08] MEDS: Multivitamin TABLET 1 TAB PO (10:48)
[2021-07-08] MEDS: oxyCODONE HCl Immed Release 5 MG TABLET PO ×2 (10:48→15:19)
[2021-07-08] MEDS: FLUoxetine HCl 20 MG CAPSULE PO (10:48)
[2021-07-08] MEDS: Furosemide 20 MG TABLET PO (10:49)
[2021-07-08] MEDS: QUEtiapine Fumarate 50 MG TABLET PO (10:49)
[2021-07-08] MEDS: Apixaban 5 MG TABLET PO (10:49)
[2021-07-08] MEDS: Cholestyramine (With Sugar) 4 GM POWD.PACK PO (10:49)
[2021-07-08] MEDS: 0.9 % Sodium Chloride Flush 3 ML SYRINGE IVFLUSH (10:50)
[2021-07-08 11:17] VITALS: BP 134/65; PULSE 75; RESP 18; TEMP 36.6; O2SAT 95
--- NOTE | 2021-07-08 12:07 | P.DS_ITS ---
DS: Providers Provider Date of Service: 07/08/21 Date of admission: 07/03/21 14:23 Primary care physician: Unknown Physician Consults: 07/03/21 06:59 Consult to Wound Care Stat Consulting Provider: Yesenia Cadet Reason for consultation: coccyx wound Has provider been notified: Yes 07/05/21 07:05 Consult to Cardiology Routine Consulting Provider: Hemanth Wing Reason for consultation: few second cardiac pauses Has provider been notified: No DS: Diagnosis Discharge Diagnosis (1) Atrial fibrillation with slow ventricular response: Status: Acute DS: Summary Hospital Course Hospital Course: patient was admitted for obstructed barth catheter which was exchanged and now functional. stage III and stage II pressure ulcers did not have signs of active infection, antibiotics were discontinued, he received local wound care. urine was felt to be colonization so antibiotics were disconitnued. for his chronic afib he did have some bradycardia at night to the 30s, asymptomatic. his cardizem will be decreased from 180mg to 120mg. he had one episode of NSVT, asymptomatic, echo unremarkable, will continue on lopressor. patient will be discharged home with VNA. Time Spent with Patient Time attestation: Total time spent providing and/or coordinating discharge services: Discharge coordination time: Greater than 30 minutes Quality: Stroke Does the patient have a stroke diagnosis?: No Physical Exam Vital Signs: Vital Signs: Last Vital Signs Temp 97.8 F 07/08/21 11:17 Pulse 75 07/08/21 11:17 Resp 18 07/08/21 11:17 BP 134/65 07/08/21 11:17 Pulse Ox 95 07/08/21 11:17 Body Mass Index 27.4 Const Other:?Awake alert oriented x3 no acute distress HENMT Other:?Oropharynx clear, membranes moist Resp Other:?Clear to auscultation with good aeration to all garcia.? No rales Cardio Other:?No S4; positive S1-S2; no S3 without murmurs rubs or gallops GI Other:?Soft nontender nondistended normoactive bowel sounds.? Function colostomy left lower quadrant Other:?Please see H&P photo Skin Other:?As previous note Extrem Other:?Left BKA; right lower extremity deformity (chronic) DS: Data Data Completed and Pending Completed studies during hospitalization [Text1]: Procedures Change Drainage Device in Bladder, External Approach (04/07/21) Transfusion of Nonautologous Red Blood Cells into Peripheral Vein, Percutaneous Approach (04/07/21) Labs on day of discharge: Laboratory Results - last 24 hr 07/08/21 07/08/21 05:58 05:58 WBC 8.2 RBC 3.73 L Hgb 10.1 L Hct 32.2 L MCV 86.3 MCH 27.1 MCHC 31.4 RDW 15.9 Plt Count 401 H MPV 9.0 L Absolute Nucleated RBC 0.000 Nucleated RBC % (auto) 0.0 Sodium 140 Potassium 4.4 Chloride 105 Carbon Dioxide 30 H Anion Gap 9 L BUN 14 Creatinine 0.48 L Estim Creat Clear Calc 146.0 Estimated GFR > 60 Fasting Glucose 93 Calcium 8.3 L D Magnesium 2.1 Preliminary micro results at discharge 07/03/21 11:44 Blood Culture - Preliminary Blood - Venous No growth after 48 hours. 07/03/21 11:37 Blood Culture - Preliminary Blood - Venous No growth after 48 hours. Discharge Plan Discharge Patient Disposition: Home Health Service Discharge Diagnosis: obstructed barth, nsvt Referrals: [facility] – [place] Wound Care Management [Provider Group] - 2 days Yesenia Cadet MD [Physician] - 2 days Physician,Baron J [Primary Care Provider] - 1 Week Discharge Medications: New cefdinir 300 mg capsule 300 mg PO BID Qty: 14 RF: 0 diltiazem HCl [Cardizem CD] 120 mg Capsule,Extended Release 24hr 120 mg PO DAILY Qty: 30 RF: 0 Continued atorvastatin 20 mg tablet 1 tab PO DAILY RF: 0 pantoprazole 40 mg tablet,delayed release (DR/EC) 1 tab PO DAILY RF: 0 furosemide 20 mg tablet 1 tab PO BID RF: 0 mirtazapine 15 mg tablet 1 tab PO BEDTIME RF: 0 oxycodone 5 mg tablet 1 tab PO Q6H PRN (Reason: Pain) RF: 0 cholestyramine-aspartame [Cholestyramine Light] 4 gram powder in packet 1 packet PO BID RF: 0 quetiapine 50 mg tablet 1 tab PO BID RF: 0 Eliquis 5 mg tablet 1 tab PO BID RF: 0 gabapentin 800 mg tablet 1 tab PO TID RF: 0 lisinopril 5 mg tablet 1 tab PO DAILY RF: 0 fluoxetine 20 mg capsule 1 cap PO QAM RF: 0 metoprolol tartrate 25 mg tablet 0.5 tab PO BID RF: 0 multivitamin Tablet 1 tab PO DAILY RF: 0 Combivent Respimat 20-100 mcg/actuation mist 1 puff inhalation QID RF: 0 Discontinued diltiazem HCl 180 mg capsule,extended release 24hr 1 cap PO DAILY RF: 0 Discharge Orders: Discharge Order (Routine); Ordered 07/08/21 Ordered By: Bong Acosta Diet: advance to usual diet Activity on Discharge: As tolerated Stand Alone Forms: Patient Portal Discharge page Print Language: [place] Activity Restrictions/Additional Instructions: Follow-up with Dr. Thurston as needed. Take antibiotics as prescribed. Start with a visiting nurse and appropriate wound care as arranged by case management Care Plan Goals: recovery Health Concerns: chronic wounds Plan of Treatment: wound care: patient has stage 2 pressure injuries to right and left buttocks and coccyx. Also has a Stage 3 measuring 2 x 1 x 4.5 on right buttock. Small purulent drainage with slight odor draining from wound. Silver alginate tucked into wound with tail left out and silver alginate applied to surrounding stage 2 pressure injuries then cover with ABD pad and tape. Triad to lower Stage 2 pressure injuries on right and left buttocks. Triad to coccyx and covered with foam Assessment: see above Patient Instructions: Urinary Retention in Men (ED), Urinary Tract Infection in Men (ED), Chronic Wounds (ED)
--- NOTE | 2021-07-08 12:11 | P.F2F_ITS ---
Service Date Service Date: 07/08/21 Reasons for Services Reason for nursing home: wound care, medication treatment and teach disease management Homebound: Leaving the home is medically contraindicated at this time without the asist of a device and/or another person due th the listed conditions above and below. Certification: Based on the above findings, I certify that this patient is co nfined to the home and needs intermittent nursing home care, physical therapy and/or speech therapy, or continues to need occupational therapy. The patient is under my care, and I have initiated the establishment of the plan of care. The patient will be followed by a physician who will periodically review the plan of care.
== END 2021-07-08 16:30 | disposition home health service (06) | DRG 698 ==
LOC: HO.ED 07-03 10:23 → HO.EDOVER 07-03 14:34 → HO.S3 07-03 18:02 → HO.IMC 07-04 00:08
PROVIDERS: Emergency Medicine; Physician Assistant Medical; Admitting Provider Hospitalist; Emergency Provider Emergency Medicine; Visit Provider Internal Medicine
DX: T83.098A Other mechanical complication of other urinary catheter, initial encounter (principal); L89.153 Pressure ulcer of sacral region, stage 3; I48.20 Chronic atrial fibrillation, unspecified; L03.317 Cellulitis of buttock; I47.1 Supraventricular tachycardia; E78.5 Hyperlipidemia, unspecified; L89.302 Pressure ulcer of unspecified buttock, stage 2; I95.9 Hypotension, unspecified; Z20.822 Contact with and (suspected) exposure to COVID-19; Z74.01 Bed confinement status; Z79.01 Long term (current) use of anticoagulants; Z79.891 Long term (current) use of opiate analgesic; Z79.899 Other long term (current) drug therapy
CPT/HCPCS: 36415; 71045; 80048; 80053; 80202; 81001; 82565; 82947; 83605; 83735; 83880; 85025; 85027; 85610; 87040; 87086; 87635; 93005; 93306; 96361; 96365; 96367; 96375; 96376; 99285; J0696; J2270; J2543; J3370

== ENCOUNTER 2021-08-10 08:29 | Emergency (ER) | payer MEDICARE, MEDICAID, SELFPAY ==
[2021-08-10 08:39] VITALS: BP 119/71; PULSE 87; RESP 17; TEMP 36.6; O2SAT 96; BMI 29.8
--- NOTE | 2021-08-10 09:44 | PC.NURSE ---
bladder scan 0 ml, c/o pelvic/bladder pain, barth draining thick yellow urine
[2021-08-10 09:53] LABS: Appearance Urine TURBID; Color Urine YELLOW; Glucose Urine UA NEG (NEG); Leukocyte Esterase Urine 2+ (NEG); Nitrite Urine POS (NEG); PH 8.5 (5.0-8.0); UACC Culture Trigger YES; Urine Blood 2+ (NEG); Urine Ketones NEG (NEG)
[2021-08-10 09:54] LABS: Urine Protein 3+ MG/DL (NEG-TRACE)
[2021-08-10 10:48] LABS: Calcium Phosphate Crystals Ur 2+ /LPF
[2021-08-10 10:49] LABS: Bacteria Urine 2+ /LPF
[2021-08-10 10:50] LABS: Mucus Urine 1+ /LPF
--- NOTE | 2021-08-10 11:06 | ED_ITS ---
HPI - General Adult General Chief complaint: Abdominal Pain Stated complaint: GROIN PAIN D/T BLOCKED F/C Time Seen by Provider: 08/10/21 10:11 Source: patient Mode of arrival: ambulatory Limitations: no limitations History of Present Illness HPI narrative: Patient presents to ED for lower groin pain with possible blocked Barth. Patient states his Barth has not been changed in a month and he thinks is not draining. Patient states he has not had visiting nurse come and see him. Patient denies any fever chills, nausea, or vomiting. Patient has history of atrial fibrillation, decubitus ulcer, cellulitis, and BPH. Related Data Home Medications Medication Instructions Recorded Confirmed apixaban 5 mg tablet (Eliquis) 1 tab PO BID 04/07/21 07/02/21 atorvastatin 20 mg tablet 1 tab PO DAILY 04/07/21 07/02/21 cholestyramine-aspartame 4 gram 1 packet PO BID 04/07/21 07/02/21 oral powder for susp in a packet (Cholestyramine Light) furosemide 20 mg tablet 1 tab PO BID 04/07/21 07/02/21 mirtazapine 15 mg tablet 1 tab PO BEDTIME 04/07/21 07/02/21 oxycodone 5 mg tablet 1 tab PO Q6H PRN 04/07/21 07/02/21 pantoprazole 40 mg tablet,delayed 1 tab PO DAILY 04/07/21 07/03/21 release quetiapine 50 mg tablet 1 tab PO BID 04/07/21 07/02/21 fluoxetine 20 mg capsule 1 cap PO QAM 07/02/21 07/02/21 gabapentin 800 mg tablet 1 tab PO TID 07/02/21 07/02/21 lisinopril 5 mg tablet 1 tab PO DAILY 07/02/21 07/02/21 metoprolol tartrate 25 mg tablet 0.5 tab PO BID 07/02/21 07/02/21 multivitamin 1 tab PO DAILY 07/02/21 07/02/21 ipratropium 20 mcg-albuterol 100 1 puff INHALATION QID 07/03/21 07/03/21 mcg/actuation mist for inhalation (Combivent Respimat) Previous Rx's Medication Instructions Recorded cefdinir 300 mg capsule 300 mg PO BID #14 cap 07/02/21 diltiazem HCl 120 mg 120 mg PO DAILY #30 cap 07/08/21 capsule,extended release 24 hr (Cardizem CD) cefpodoxime 200 mg tablet 200 mg PO Q12H 10 Days #20 tab 08/10/21 Allergies Allergy/AdvReac Type Severity Reaction Status Date / Time No Known Allergies Allergy Unverified 06/11/20 15:43 [No Known Allergies*] Review of Systems Review of Systems: Yes all other systems are reviewed and are negative Constitutional: Constitutional: Reports as per HPI and Reports no additional constitutional complaints Eyes: Eyes: Reports as per HPI and Reports no additional eye complaints ENT: Reports system reviewed and no additional complaints, except as documented and Reports as per HPI Cardiovascular: Cardiovascular: Reports as per HPI and Reports no additional cardiovascular complaints Respiratory: Respiratory: Reports as per HPI and Reports no additional respiratory complaints Gastrointestinal: Gastrointestinal: Reports as per HPI and Reports no additional gastrointestinal complaints Genitourinary: Genitourinary: Reports no additional male genitourinary complaints and Reports as per HPI Comments: Thinks barth is blocked. 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 Housing: Apartment Housing Other:: Pt comes from [facility] Do you presently have visiting nurse or other home services: No Alcohol intake: never Patient Tobacco Use Status: Never used Tobacco Advance Directives: Yes Advance Directives on File: Yes Advance Directives Date on File: 04/08/21 service: No Current occupational status: disabled Physical Exam Vital Signs: Vital Signs: Last Vital Signs Temp 98 F 08/10/21 08:39 Pulse 96 08/10/21 12:22 Resp 16 08/10/21 12:22 BP 127/67 08/10/21 12:22 Pulse Ox 99 08/10/21 12:22 Body Mass Index 29.8 Const: General: cooperative, healthy appearing, comfortable, no acute distress, well developed and alert Orientation/consciousness: patient oriented x3 HENMT: Head: Yes normal to inspection and Yes No palpable skull fracture present Eyes: General: appearance normal, both eyes and all related structures Neck: Neck: Yes normal visual inspection, Yes full ROM, Yes no lymphadenopathy, Yes no meningeal signs, Yes trachea midline, Yes supple, No anterior neck swelling and No tender Chest: Chest palpation & inspection: normal inspection of the chest and normal palpation of entire chest wall Resp: Effort & Inspection: normal respiratory effort and able to speak in complete sentences Auscultation: clear to auscultation bilaterally Cardio: Jugular venous distension: no JVD Heart sounds: S1 normal heart sound present and S2 normal heart sound present GI: Inspection: Yes normal to inspection and No abdominal wall ecchymosis Palpation (GI): Soft to palpation, not firm, nontender, no guarding and not rigid : Other: Barth bag is draining. Positive for significant cloudy urine. Negative for any hematuria. Abdominal exam is benign soft and nontender. General: No CVA tenderness and Yes no CVA tenderness Back/Spine/Pelvis: Back: no CVA tenderness, No CVA tenderness and No back tenderness Skin: General skin exam: no rashes or lesions noted and elasticity normal Neuro: Other: Patient is bedbound General: patient oriented x3, no meningeal signs and CN's II-XI intact bilaterally Cranial nerves: Yes CN's II-XII intact bilaterally Extrem: General: Yes normal to inspection and Yes full ROM Psych: Appearance: grossly normal, well kempt and not disheveled Course Course Course Narrative: Patient is not in any distress. Reevaluation(s) Reevaluation #1: Abdomen is soft benign nontender on exam. Barth is draining. Barth had good irrigation and flush. Bladder scan is 0. This is shown that Barth is working. Will send UA for UTI. Vital signs stable Reevaluation #2: UA shows UTI. No labs indicated. Barth is working but patient states he wants Barth removed and changed due to barth being placed a month agol. As per notes patient was a difficult Barth placement and Dr. Thurston had to be called to place wire guided a cold day. Discussed case with Dr. Thurston who states patient can be discharged and follow up outpatient at his clinic for Barth removal. Case was discussed with child support case officer nurse Radha will organize transport for patient to follow-up with Dr. Thurston urology clinic and also confirm he has VNA services. She states patient is Known for prevents VNA nurses from coming to the house and is not compliant. Flex patient states VNA will be to coming to his house. Reevaluation #3: Patient insisting he would not leave until Barth change. Dr. Thurston came to the ED to change the Barth and was unsuccessful to 1st try. He states he will come back at 17:00 with his equipment from the clinic to place the Barth. Patient presently not in any distress. Time: 15:37 Additional Reevaluation(s): 18:30 Dr. Thurston states he will come to the ER to place Barth. Case signed out to Davon Mc for discharge after barth placement. Medical Decision Making Lab Data Labs: Lab Results 08/10/21 Range/Units 09:42 Urine Color YELLOW Urine Appearance TURBID Urine pH 8.5 H (5.0-8.0) Ur Specific [place] 1.010 (1.005-1.025) Urine Protein 3+ H (NEG-TRACE) MG/DL Urine Glucose (UA) NEG (NEG) MG/DL Urine Ketones NEG (NEG) MG/DL Urine Blood 2+ H (NEG) Urine Nitrite POS H (NEG) Ur Leukocyte Esterase 2+ H (NEG) Urine RBC 15-29 H (0) /HPF Urine WBC 15-29 H (0-4) /HPF Ur Squamous Epith Cells NONE /LPF Calcium Phosphate Cryst 2+ /LPF Urine Bacteria 2+ /LPF Urine Mucus 1+ /LPF Discharge Plan Discharge Clinical Impression: Urinary tract infection Patient Disposition: Home, Self-Care Instructions: Barth Catheter Placement and Care (ED), Catheter-associated Urinary Tract Infection (ED) Additional Instructions: Your Barth is working. You have a urinary tract infection that required antibiotics. Transportation organized for you to follow-up with Dr. Thurston as outpatient for Barth change. Also visiting nurse will be coming to her house. Return to ED for abdominal pain, fever, chills, nausea, vomiting, flank pain, gross hematuria, or any other concerning symptoms. Prescriptions: New cefpodoxime 200 mg tablet 200 mg PO Q12H 10 Days Qty: 20 RF: 0 No Action atorvastatin 20 mg tablet 1 tab PO DAILY RF: 0 pantoprazole 40 mg tablet,delayed release (DR/EC) 1 tab PO DAILY RF: 0 furosemide 20 mg tablet 1 tab PO BID RF: 0 mirtazapine 15 mg tablet 1 tab PO BEDTIME RF: 0 oxycodone 5 mg tablet 1 tab PO Q6H PRN (Reason: Pain) RF: 0 cholestyramine-aspartame [Cholestyramine Light] 4 gram powder in packet 1 packet PO BID RF: 0 quetiapine 50 mg tablet 1 tab PO BID RF: 0 Eliquis 5 mg tablet 1 tab PO BID RF: 0 gabapentin 800 mg tablet 1 tab PO TID RF: 0 lisinopril 5 mg tablet 1 tab PO DAILY RF: 0 fluoxetine 20 mg capsule 1 cap PO QAM RF: 0 metoprolol tartrate 25 mg tablet 0.5 tab PO BID RF: 0 multivitamin Tablet 1 tab PO DAILY RF: 0 cefdinir 300 mg capsule 300 mg PO BID Qty: 14 RF: 0 Combivent Respimat 20-100 mcg/actuation mist 1 puff inhalation QID RF: 0 diltiazem HCl [Cardizem CD] 120 mg Capsule,Extended Release 24hr 120 mg PO DAILY Qty: 30 RF: 0 Referrals: [facility] [Outside] - 2 days Dhruv Thurston MD [Physician] - 2 days (Chronic indwelling Barth needs to be changed. Noncompliant with VNA services. Discharge with antibiotics for UTI) Print Language: Citizen Of [place]
--- NOTE | 2021-08-10 11:44 | MHC.CM.ED ---
Received case management consult from SAMANTHA Ramirez. Patient came to the ER due to barth issues. Per Dr Thurston, patient can follow up outpatient for barth change. 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 PCP is Dr Babcock. [facility] booked for next available. [facility] with chart. Patient, Dinesh GEE and James SINGH aware. Case Management has been asked to make a follow up appointment with Dr Thurston's office. Continue to monitor for d/c needs.
[2021-08-10 12:22] VITALS: BP 127/67; PULSE 96; RESP 16; O2SAT 99
--- NOTE | 2021-08-10 14:15 | PC.NURSE ---
pt states that dr young said he'd be back at [address] to place the barth
== END 2021-08-10 21:23 | disposition home or self-care (01) ==
PROVIDERS: Physician Assistant; Emergency Provider Emergency Medicine Emergency Medical Services; PCP Family Medicine
DX: N39.0 Urinary tract infection, site not specified (principal); Z79.899 Other long term (current) drug therapy
CPT/HCPCS: 51798; 81001; 87086; 99284

== ENCOUNTER 2021-12-31 12:34 | Outpatient (RCR) | payer MEDICARE, MEDICAID, SELFPAY | END 2022-11-02 16:00 | disposition home or self-care (01) | LOC: HO.WCC 12:34 | PROVIDERS: PCP Family Medicine; Visit Provider Surgery | DX: L89.323 Pressure ulcer of left buttock, stage 3 (principal); L89.313 Pressure ulcer of right buttock, stage 3; T83.038A Leakage of other urinary catheter, initial encounter; G82.20 Paraplegia, unspecified; I48.91 Unspecified atrial fibrillation; Z79.01 Long term (current) use of anticoagulants; Z79.891 Long term (current) use of opiate analgesic; Z79.899 Other long term (current) drug therapy | CPT/HCPCS: 11042; 11043; 97597; 99213 ==

== ENCOUNTER → 2022-07-25 13:58 | Outpatient (BNVA) | payer MEDICARE, MEDICAID, SELFPAY | PROVIDERS: PCP Internal Medicine; Visit Provider Urology | DX: Q54.9 Hypospadias, unspecified (principal); N31.9 Neuromuscular dysfunction of bladder, unspecified; N39.45 Continuous leakage; G82.20 Paraplegia, unspecified; Z97.8 Presence of other specified devices | CPT/HCPCS: 99212 ==

== ENCOUNTER → 2022-08-15 13:37 | Outpatient (BNVA) | payer MEDICARE, MEDICAID, SELFPAY | PROVIDERS: PCP Internal Medicine; Visit Provider Urology | DX: N31.9 Neuromuscular dysfunction of bladder, unspecified (principal); Q54.9 Hypospadias, unspecified; N39.45 Continuous leakage; Z97.8 Presence of other specified devices | CPT/HCPCS: Q3014 ==

== ENCOUNTER → 2022-09-23 11:28 | Outpatient (BNVA) | payer MEDICARE, MEDICAID, SELFPAY | PROVIDERS: PCP Internal Medicine; Visit Provider Urology | DX: Q54.9 Hypospadias, unspecified (principal); N31.9 Neuromuscular dysfunction of bladder, unspecified; N39.45 Continuous leakage; Z97.8 Presence of other specified devices | CPT/HCPCS: Q3014 ==

== ENCOUNTER → 2022-12-26 09:54 | Outpatient (BNVA) | payer MEDICARE, MEDICAID, SELFPAY | PROVIDERS: PCP Internal Medicine; Visit Provider Urology | DX: N31.9 Neuromuscular dysfunction of bladder, unspecified (principal); N39.45 Continuous leakage; Z12.5 Encounter for screening for malignant neoplasm of prostate; Q54.9 Hypospadias, unspecified; Z97.8 Presence of other specified devices | CPT/HCPCS: Q3014 ==

== ENCOUNTER 2023-04-14 14:54 | Outpatient (AMB) | payer MEDICARE, MEDICAID, SELFPAY ==
--- NOTE | 2023-04-10 12:06 | A.OFFVIS_ITS ---
Intake Intake Visit Reasons: 14w/PSA Intake Note: Patient presents today for a follow-up on PSA Results: Meds- Furosemide & Myrbetriq Allergies to Antibiotic- No Known Allergies Blood Thinner- Eliquis PSA Results- 0.6 ng/mL 03/30/2023 Executive Vice President Of Sales Required: No Accompanied by: Self / Same As Patient Allergies No Known Allergies [No Known Allergies*] Allergy (Verified 08/15/22 13:39) Medication List - Last Reconciled 04/14/23 by Galdino Duron MD apixaban (Eliquis) 1 tab PO BID atorvastatin 1 tab PO DAILY cholestyramine-aspartame 4 gram (Cholestyramine Light) 1 packet PO BID diltiazem HCl (Cardizem CD) 120 mg See Protocol PO DAILY fluoxetine 1 cap PO QAM furosemide 1 tab PO BID gabapentin 1 tab PO TID ipratropium-albuterol 20-100 mcg/actuation (Combivent Respimat) 1 puff inhalation QID lisinopril 1 tab PO DAILY metoprolol tartrate 0.5 tabs PO BID mirtazapine 1 tab PO BEDTIME multivitamin 1 tab PO DAILY nitrofurantoin monohyd/m-cryst 100 mg (Macrobid) 1 tab to be taken on days of catheter change orally; must administer with a meal/food oxybutynin chloride ER 10 mg PO BEDTIME 30 days quetiapine 1 tab PO BID sulfamethoxazole-trimethoprim 800-160 mg (Bactrim DS) 1 tab PO BID 7 days vibegron (Gemtesa) 75 mg PO DAILY [facility] Medical History Acute osteomyelitis Atrial fibrillation Colostomy complication COVID Embolism Encounter for surgical aftercare following surgery of digestive system Essential hypertension Major depressive disorder Muscle weakness Paraplegia Surgical History Hx of BKA Social History Household Members: 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
--- NOTE | 2023-04-14 15:38 | A.OFFVIS_ITS ---
Intake Intake Visit Reasons: 14w/PSA Allergies No Known Allergies [No Known Allergies*] Allergy (Verified 08/15/22 13:39) Medication List - Last Reconciled 04/14/23 by Galdino Duron MD apixaban (Eliquis) 1 tab PO BID atorvastatin 1 tab PO DAILY cholestyramine-aspartame 4 gram (Cholestyramine Light) 1 packet PO BID diltiazem HCl (Cardizem CD) 120 mg See Protocol PO DAILY fluoxetine 1 cap PO QAM furosemide 1 tab PO BID gabapentin 1 tab PO TID ipratropium-albuterol 20-100 mcg/actuation (Combivent Respimat) 1 puff inhalation QID lisinopril 1 tab PO DAILY metoprolol tartrate 0.5 tabs PO BID mirtazapine 1 tab PO BEDTIME multivitamin 1 tab PO DAILY nitrofurantoin monohyd/m-cryst 100 mg (Macrobid) 1 tab to be taken on days of catheter change orally; must administer with a meal/food oxybutynin chloride ER 10 mg PO BEDTIME 30 days quetiapine 1 tab PO BID sulfamethoxazole-trimethoprim 800-160 mg (Bactrim DS) 1 tab PO BID 7 days vibegron (Gemtesa) 75 mg PO DAILY HPI HPI Comments History of Present Illness Details Maninder is a 67-year-old male who presents today to the office for a f ollow-up on PSA results. 04/14/2023-- He state that he is on Eliquis. He states that he has discontinued taking Eliquis during his surgeries. He has a chronic Barth for neurogenic bladder. He reports chronic urinary leakage around the Barth catheter. He states that the visiting nurse will change the catheter for every 3 weeks. He states that they have difficulty getting the Barth catheter all the way into the bladder. He reports that occasionally, he needs to go to ER to replace the catheter.? He is taking Oxybutynin 10mg at bed time. PSA results reviewed ? 03/30/2023?0.6 ng/mL. Plan: Prescribed Gemtesa 75mg to replace myrbetriq 50mg. Continue taking Oxybutynin 10mg at bed time. The patient is interested in suprapubic tube.? I discussed with the patient that due to his several previous abdominal surgeries, placing the suprapubic tube may be complicated.? Willing to consider if we can able to accomplish this, however, he will try the new medications at this time, Follow up tele-health in 3-months. 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 lives above in different apartment Housing: Apartment Do you presently have visiting nurse or other home services: Yes (FLOOR [employer]) Alcohol intake: former Patient Tobacco Use Status: Former Tobacco user Quit Date: age 48's Tobacco use type: Cigarette Advance Directives Date on File: 04/08/21 service: No Current occupational status: disabled Review of Systems Const Reports no additional complaints Eyes Reports no additional complaints ENT Reports no additional complaints Card Denies dyspnea Resp Denies cough and Denies dyspnea GI Reports no additional complaints Musc Reports no additional complaints Skin/Breast Denies rash and Denies unusual bruising Neuro Reports no additional complaints Psych Reports no additional complaints Endo Reports no additional complaints Sha/Lymph Reports no additional complaints Aller/Immun Reports no additional complaints Physical Exam Const General: no acute distress Orientation/consciousness: patient oriented x3 HEENT Head: Yes normocephalic and Yes atraumatic Eyes Conjunctivae: conjunctivae normal Neck Neck: Yes normal visual inspection Chest Chest palpation & inspection: normal inspection of the chest Resp Effort & Inspection: normal respiratory effort GI Inspection: Yes normal to inspection Palpation (GI): Soft to palpation Other: barth catheter in place Neuro General: patient oriented x3 Psych Appearance: grossly normal Affect: normal affect Assessment & Plan Assessment & Plan (1) Chronic indwelling Barth catheter: Code(s): Z97.8 - Presence of other specified devices (2) Continuous urine leakage: Code(s): N39.45 - Continuous leakage (3) Neurogenic bladder: Code(s): N31.9 - Neuromuscular dysfunction of bladder, unspecified Plan Prescribed Gemtesa 75mg to replace myrbetriq 50mg. Continue taking Oxybutynin 10mg at bed time. The patient is interested in suprapubic tube.? I discussed with the patient that due to his several previous abdominal surgeries, placing the suprapubic tube may be complicated.? Willing to consider if we can able to accomplish this, however, he will try the new medications at this time, Follow up tele-health in 3-months. Medications: New vibegron (Gemtesa) gemtesa to replace myrbetriq 50mg 75 mg PO DAILY 90 tabs 0RF Coding Level of Care Code Est Pt Level 4 (12531) Diagnoses Chronic indwelling Barth catheter Z97.8 Continuous urine leakage N39.45 Neurogenic bladder N31.9 Diagnoses Chronic indwelling Barth catheter Z97.8 Continuous urine leakage N39.45 Neurogenic bladder N31.9
== END 2023-04-14 15:45 | disposition home or self-care (01) ==
PROVIDERS: Visit Provider Urology
DX: Z97.8 Presence of other specified devices (principal); N39.45 Continuous leakage; N31.9 Neuromuscular dysfunction of bladder, unspecified
CPT/HCPCS: 99214

== ENCOUNTER → 2023-04-14 14:54 | Outpatient (BNVA) | payer MEDICARE, MEDICAID, SELFPAY | PROVIDERS: Visit Provider Urology | DX: N31.9 Neuromuscular dysfunction of bladder, unspecified (principal); N39.45 Continuous leakage; Z97.8 Presence of other specified devices; Z79.899 Other long term (current) drug therapy | CPT/HCPCS: 99212 ==

== ENCOUNTER 2023-04-28 12:53 | Outpatient (AMB) | payer MEDICARE, MEDICAID, SELFPAY ==
--- NOTE | 2023-04-28 13:07 | AM.OFFVISNUR ---
Intake Intake Visit Reasons: cath change Allergies No Known Allergies [No Known Allergies*] Allergy (Verified 08/15/22 13:39) Office Procedures Bladder/Catheter Procedure Details: pt presents to office for barth cath change after [facility] discharged pt from services due to too complicated barth change . pt states has been requesting SP tube placement for months and continues to be told is not an option for him- Dr Hernandez to bedside as RN unable to change barth cath due to pt's position in chair and being wheelchair bound, unable to transfer to bed- Dr Hernandez able to place 18 fr coude cath with night bag. per Dr Hernandez certified ophthalmic surgical assistant to schedule pt for SP tube placement and keep pt under Dr Hernandez's care. pt agreeable to plan. 4 wk barth changed scheduled in case procedure has to be scheduled out. [id number] Temporary Bladder Catheter Procedure code (CPT) selection complete Coding Diagnoses CPT Codes Bladder/Catheter Procedure - CPT: 88746-[id number] Temporary Bladder Catheter ([id number]) Assessment & Plan Assessment & Plan Orders: Orders AMB Bladder/Catheter Procedure Today N31.9 - Neuromuscular dysfunction of bladder, unspecified
== END 2023-04-28 14:12 | disposition home or self-care (01) ==
PROVIDERS: PCP Internal Medicine; Visit Provider Urology
DX: N31.9 Neuromuscular dysfunction of bladder, unspecified (principal)

== ENCOUNTER → 2023-04-28 12:53 | Outpatient (BNVA) | payer MEDICARE, MEDICAID, SELFPAY | PROVIDERS: PCP Internal Medicine; Visit Provider Urology | DX: N31.9 Neuromuscular dysfunction of bladder, unspecified (principal) | CPT/HCPCS: 51702 ==

== ENCOUNTER 2023-05-06 10:38 | Emergency (ER) | payer MEDICARE, MEDICAID, SELFPAY ==
[2023-05-06 11:09] VITALS: BP 132/67; BP 140/90; PULSE 113; PULSE 87; RESP 18; TEMP 36.6; O2SAT 98; O2SAT 99; BMI 29.9
--- NOTE | 2023-05-06 11:13 | PC.NURSE ---
Patient arrived from home reporting barth fell out. Patient states barth was replaced by Drt. Jernigan about 2 weeks ago. Patient states has barth r/t incontinence and is chronic. States when barth fell out ballon was still inflated, reports usually has a 30cc ballon but office only had a 10cc balloon. Unsure of size of barth. left bka in 2011. Denies sob or chest pain.
[2023-05-06 11:22] VITALS: BP 132/67; PULSE 87; RESP 18; TEMP 36.6; O2SAT 99
--- OUTSIDE RECORDS SUMMARY | 2023-05-06 11:22 | XMS_ITS | Continuity of Care Document ---
Author Name Unknown Organization [facility] ter Address [address] [place] [id number] Care Team Providers Care Bale Stacker Name Role Phone Alex Harris MD, [place] Primary Care Phys ician [place] [facility] [place] 03/30/23 - 04/03/[address] [id number] [[email or web address]] Encounter Diagnosis Complicated UTI (urinary tract infection)(Final) - 03/30/23 Indwelling Barth catheter present(Final) - 03/30/23 Hematuria(Final) - 03/30/23 Discharge Disposition: A-Transfer VNA/Home Health Attending Physician: Pastor Gipson MD Admitting Physician: Rickey Case MD Referring Physician: Not on Staff, Referring MD Allergies, Adverse Reactions, Alerts No Known Allergies Immunizations Given and Recorded Vaccine Date Status Refusal Reason influenza virus vaccine, inactivated 1 12/05/11 Gi elisabet pneumococcal 23-valent vaccine 10/08/11 Given Not Given Vaccine Date Status Refusal Reason influenza virus vaccine, inactivated 06/26/15 Not Given Patient Refuses 1Result Comment: pt refused Medications atorvastatin 20 mg oral tablet 1 tablet = 20 mg, By Mouth, Daily, # 30 tablet, 0 Refills, Maintenance, 03/31/23 1:56:00 EDT, Tablet, Partial fill upon patient request if the prescription is for a schedule II opioid drug. Start Date: 03/31/23 Stop Date: 04/03/23 Status: Ordered Bactrim DS 800 mg-160 mg oral tablet 1 tablet, By Mouth, 2 times a day, for 5 days, # 10 tablet, 0 Refills, Acute 04/06/23 9:56:00 EDT, 04/01/23 9:56:00 EDT, Tablet, [id number], Partial fill upon patient request if the prescription is for a schedule II opioid drug., 1 tablet By M... Start Date: 04/01/23 Stop Date: 04/06/23 Status: Ordered Eliquis 5 mg oral tablet 1 tablet = 5 mg, By Mouth, 2 times a day, # 60 tablet, 5 Refills, Maintenance, 03/31/23 1:56:00 EDT, Tablet, Partial fill upon patient request if the prescription is for a schedule II opioid drug. Start Date: 03/31/23 Status: Ordered fluoxetine 20 mg oral tablet 2 tablet = 40 mg, By Mouth, Daily, # 30 tablet, 0 Refills, Maintenance, 03/07/15 1:35:16 EDT, Tablet Start Date: 03/07/15 Status: Ordered FUROSEMIDE 20 MG TABLET FUROSEMIDE 20 MG TABLET, 20 mg, By Mouth, 2 times a day, # 100 capsule, 20 Refills, Maintenance, TAKE 1 TABLET BY MOUTH TWICE A DAY, 04/03/23 2:00:00 EDT Start Date: 04/03/23 Stop Date: 04/06/23 Status: Ordered metoprolol 25 mg oral tablet 12.5 mg, Tablet, By Mouth, 04/03/23 9:00:00 EDT Start Date: 04/03/23 Stop Date: 04/03/23 Status: Completed metoprolol 25 mg oral tablet 12.5 mg, 0.5, tablet, By Mouth, 2 times a day, # 30 tablet, Refills 1, Tot. Refills 1, Maintenance,01/31/17 9:36:49, Route to Pharmacy Electronically, [id number], [facility] Start Date: 01/31/17 Stop Date: 04/01/17 Status: Ordered Multivitamin 1 tab, By Mouth, Daily, 0 Refills, Maintenance Start Date: 06/30/12 Status: Ordered Myrbetriq 50 mg oral tablet, extended release 1 tablet = 50 mg, By Mouth, Daily, do not crush or chew, # 30 tablet, 0 Refills, Maintenance, 03/31/23 1:57:00 EDT, ER Tablet, Partial fill upon patient request if the prescription is for a schedule II opioid drug. Start Date: 03/31/23 Status: Ordered oxybutynin 10 mg/24 hr oral tablet, extended release 1 tablet = 10 mg, By Mouth, Daily at bedtime, TAKE 1 TABLET BY MOUTH TWICE DAILY, # 20 capsule, 1 Refills, Maintenance, 04/02/23 2:15:00 EDT Start Date: 04/02/23 Stop Date: 05/02/23 Status: Ordered Tylenol 325 mg oral tablet 2 tablet = 650 mg, By Mouth, Every 6 hours, PRN Pain, # 50 tablet, 0 Refills, Maintenance, Tablet Start Date: 09/01/12 Status: Ordered Problem List Condition Confirmation Course Effective Dates Status Health St atus Informant Gangrene Confirmed Active Hypotensive episode Confirmed Active Iliac dissection Confirmed Active PVD - Peripheral vascular disease Confirmed Active Severe obesity Confirmed Active Results Orders for Microbiology Reports Name Date Urine Culture (URINE CULTURE) 03/30/23 Microbiology Reports TEST:Urine Culture STATUS:Auth (Verified) BODY SITE: SOURCE:URINE COLLECTED DATE/TIME:03/30/23 8:12 PM Urine Culture SPECIMEN DESCRIPTION : URINE SPECIAL REQUESTS : NONE CULTURE : Mixed bacterial angeline, indicative of urogenital contamination. REPORT STATUS : FINAL 04/01/2023 Radiology Reports * Exam Date Time Procedure Performing Provider Status 03/30/23 10:[address] Abdomen and Pelvi s W/O Contrast Rita Hicks; Auth (Verified) Notes: (CT Abdomen and Pelvis W/O Contrast) Reason For Exam: Flank pain, kidney stone suspected;Other: RESULT: CT Abdomen and Pelvis W/O Contrast CT Abdomen and Pelvis W/O Contrast Reason: Other:; Flank pain, kidney stone suspected; Clinical Question(s): Calculus; Hematuria, obstruction; Order Comment: TECHNIQUE: Spiral CT through the abdomen and pelvis without IV contrast formatted in 3 planes. Thisstudy was performed without oral contrast. Weight- based protocol using automatic tube modulation was used to optimize exposure parameters. CTDIvol Body: 8.60 mGy, DLP Body: 376 mGy*cm. COMPARISON: 03/15/2020 FINDINGS: Typewriters Functional Tester View Findings, Lines and Tubes: None. Visualized Chest: Right lower lobe atelectasis or scarring. No pleural effusion. The heart is normal in size. No pericardial effusion. Diaphragm: Normal. Liver: Normal. Gallbladder: No CT evidence of gallbladder pathology. Bile ducts: No biliary ductal dilation. Spleen: Normal. Pancreas: Normal. Adrenal glands: Normal. Kidneys and ureters: No hydronephrosis, stones, or noncontrast evidence of suspicious masses. Bladder: Bladder wall thickening and adjacent haziness. The balloon of the Barth catheter appears to be within the urethra and not within the stomach. This is best seen on the sagittal views. Recommend repositioning and advancing the Barth catheter. Reproductive organs: Unremarkable. Stomach, small bowel, and large bowel: Normal. Appendix: Normal. Peritoneum and retroperitoneum: No ascites or pneumoperitoneum. No omental or mesenteric lesions. Lymph nodes: No enlarged lymph nodes. Blood vessels: Persistent dilatation of the distal thoracic and abdominal aorta with evidence of chronic dissection, not significantly changed. Abdominal and pelvic wall: Left lower quadrant ostomy with large parastomal hernia containing nondilated loops of small and large bowel.. Bones: Old L2 superior endplate compression fracture. Diffuse osteopenia. Marked atrophy of the gluteal and paraspinal muscles. Bilateral hip decubitus ulcers with inflammation extending to the ischial tuberosities. IMPRESSION: No evidence of nephrolithiasis or obstructive uropathy. Possible cystitis. Recommend correlation with patient's urinalysis. The balloon of the Barth catheter appears to be outside of the bladder and within the urethra versus vagina. Recommend repositioning the Barth catheter and its balloon. An actionable message ([place]) has been communicated via the Credible system on 03/30/2023 10:28 PM, Message ID [id number]. WSN: [id number] Ordering Physician: Ledy Rose Dictated By: Nancy Clifton MD Dictated Date/Time: 03/30/23 10:29 p Reviewed By: Nancy Clifton MD Signed By: Nancy Clifton MD Signed Date/Time: 03/30/23 10:29 pm Transcribed By: BARBARA Transcribed Date/Time: 03/30/23 10:17 pm Vital Signs Most recent to oldest [Reference Range]: 1 2 3 Height 168 cm (04/03/23 12:43 PM) 168 cm (04/03/23 11:32 AM) 168 cm (04/03/23 7:30 AM) Weight 123 kg (03/31/23 12:29 PM) Oxygen Saturation [94-100 %] 96 % (04/03/23 12:43 PM) 100 % (04/03/23 11:32 AM) 99 % (04/03/23 7:30 AM) Pulse Rate [55-90 bpm] 71 bpm (04/03/23 12:43 PM) 65 bpm (04/03/23 11:32 AM) 72 bpm (04/03/23 9:07 AM) Body Mass Index [18.5-24.99 kg/m2] 43.58 kg/m2 *>HHI* (03/31/23 12:29 PM) Blood Pressure [90-138/55-84 mm Hg] 104/55mm Hg (04/03/23 12:43 PM) 126/74mm Hg (04/03/23 11:32 AM) 138/57mm Hg (04/03/23 9:07 AM) Respiratory Rate [16-30 br/min] 18 br/min (04/03/23 12:43 PM) 18 br/min (04/03/23 11:32 AM) 18 br/min (04/03/23 7:30 AM) Temperature [96.8-100.4 DegF] 97.5 DegF (04/03/23 12:43 PM) 98.7 DegF (04/03/23 11:32 AM) 97.9 DegF (04/03/23 7:30 AM) Mode of Delivery (Oxygen) Room air (04/03/23 12:43 PM) Room air (04/03/23 11:32 AM) Room air (04/03/23 7:30 AM) Blood pressure sites Arm, left (04/03/23 12:43 PM) Arm, left (04/03/23 11:32 AM) Arm, left (04/03/23 7:30 AM) Temperature Route Oral (04/03/23 12:43 PM) Oral (04/03/23 11:32 AM) Oral (04/03/23 7:30 AM) Dry Weight 123 kg (03/31/23 12:29 PM) Social History Social History Type Response Smoking Status Current every day sm oker; Tobacco user in household: No; Other: <1/4 ppd cigarettes per day; entered on: 12/24/16 Sex Male Admission evaluation note * Benedict Bob MD: MODIFY, PERFORM, MODIFY, MODIFY Event Display: Admission Note Authored Date: Patient: ??DEMARIO FORD ? Age:??67 Years?Sex:??Male?:??1955?? History of Present Illness This is a 67-year-old??M w/ pmh of Afib on??eliquis , CHF, chronic indwelling Barth with hx recurrent UTIs presents with urinary complaints, including one week of dark brown hematuria, dysuria, dribbling/leaking from the tip of his penis [in the face of a chronic indwelling urinary catheter] and progressive suprapubic pain and tenderness, starting about 1 week ago ?? Pt has an indwelling??catheter since 2010 for chronic neurogenic bladder, and has been getting it changed monthly by [facility]N. It was last changed last 7 days ago Pt follows By Dr. Jernigan??with [facility].?? Has a 20G Catheter. ?? At the ED patient is vitally stable and afebrile CBC with differential grossly within normal limits Complains of metabolic panel grossly within normal limits UA notable for 3+ albumin, 2+ hemoglobin negative nitrite but 3+ leukocyte with slight bacteria, 16white blood cell + 13 red blood cells ?? CT abdomen pelvis without contrast notable for cystitis with the balloon of the Barth catheter appearing to be outside the bladder and within the urethra ?? At the ED patient's Barth catheter was removed however ED team was??unable to visualize the urethra, blind attempt was not successful to obtain urine return. ?? They discussed case w/ Urology whom recommended NPO for barth replacement in AM under [place] ? Given UA findings patient to be admitted for Complicated UTI Patient is status post??one dose??piperacillin tazobactam?? Review of Systems + pain on urinating + dribbling + hematuria ?? Otherwise neg Objective ? Vital Signs?? Temperature: 97.9 DegF (03/30/23 20:11:00) Temperature Route: Oral (03/30/23 20:11:00) Pulse Rate: 84 bpm (03/30/23 23:45:00) Respiratory Rate: 16 br/min (03/31/23 00:25:00) Systolic Blood Pressure: 122 mm Hg (03/30/23 23:45:00) Diastolic Blood Pressure: 66 mm Hg (03/30/23 23:45:00) Blood pressure sites: Arm, left (03/30/23 23:45:00) Mean Arterial Pressure: 85 mm Hg (03/30/23 23:45:00) Pulse Pressure: 56 mm Hg (03/30/23 23:45:00) Oxygen Saturation: 99 % (03/30/23 23:45:00) Mode of Delivery (Oxygen): Room air (03/30/23 23:45:00) Early Warning Score: 3 (03/31/23 00:25:27) ? Intake/Output? No Data Available ? Physical Exam Constitutional: Alert, in no distress. Large body habitus Mental Status: Oriented to person, place and time. Head: Normocephalic. Eyes: Pupils are equal, round Ear, Nose and Throat: Oropharynx clear, mucous membranes moist. Neck: Supple, Full range of motion. Respiratory: Clear to auscultation. No wheezing or crackles Cardiovascular: S1 S2 regular. No murmurs Gastrointestinal: Abdomen soft, non-tender. L sided colostomy bag Genitourinary: No costovertebral angle tenderness. Does have suprapubic tenderness. Penile head + Urethral meatus is split posteriorly Neurologic: Moves all extremities spontaneously. Skin: No rashes Musculoskeletal: L BKA amputation. R Ankle dorsiflexed and contracted. Psychiatric: Normal mood and affect Assessment/Plan 67 w/ chronic indwelling catheter since 2010 presenting with urinary dribbling, hematuria, dysuria,leaking of urine around catheter, in the setting of complicated UTI + dislodged urinary catheter. Has been removed at ED but was unable to be replaced as ED. Plan for General anesthesia??replacement by urology in the AM ?? Complicated UTI Chronic indwelling catheter??2/2 chronic neurogenic bladder Hematuria related to catheter trauma in a chronically catheterized patient s/p catheter removal Pt has urinary incontinence without catheter Plan: - Urology consulted for barth replacement, appreciate reccs - Bladder Scan + S/C >400 - Continue Oxybutinin, no longer takes BID, mirabegron nonformulary - Continue Eliquis, no longer having hematuria - Continue Zocyn - Follow Urine Cx, de-escalate Abx as appropriate - Monitor U/O - APAP prn pain, home med ?? Hx of Atrial fibrillation PVD Decreased ejection fraction??on ECHO. Plan: - Continue Lasix 20??BID - Eliquis for A/C for Afib - Continue Metoprolol 12.5mg BID - Continue home statin ?? Depression: - Continue fluoxetine 40mg daily ?? QI - Code: Full - DVT PPx: Apixaban - Diet: Cardiac diet but NPO for now ?? Benedict Bob MD Internal Medicine/Pediatrics PGY2 Available by Cortext or Pager ([phone]) ?? Discussed w/ Dr. Elizabeth ?? Histories Allergies Allergies ?(Active and Proposed Allergies Only) NKA? (Severity: Unknown severity, Onset: Unknown) ? Past Medical History/Problem List Active Problems??(7) Chest pain on respiration Depressive disorder Gangrene Hypotensive episode Iliac dissection PVD - Peripheral vascular disease Right leg pain ? Past Surgical History Thoracic aneurysm rupture and repair in 2010, cholecystectomy L BKA amputation in 2011 ? Social History Alcohol Details:??Use: Never. Substance Abuse Details:??Use: Never. Tobacco Details:??Current every day smoker, Tobacco user in household: No. ??Other: <1/4 ppd cigarettes per day. Quit years??ago ? Family History Father, uncle: aortic aneurysm (AAA) Mother: pacemaker ? Medications Home Medications Acetaminophen (Tylenol 325 mg oral tablet)?2?tab(s)?650?Milligram?By Mouth?Every 6 hours?as needed?Pain Ammonium Lactate 12% (ammonium lactate topical 10% cream)?1 applicator?Topically?2 times aday?as needed?Itch Dry Skin Aspirin (Aspirin Tablet)?81?Milligram?By Mouth?Daily Fluoxetine (fluoxetine 20 mg oral tablet)?1?tab(s)?20?Milligram?By Mouth?Daily Gabapentin (gabapentin 300 mg oral capsule)?1?capsule?300?Milligram?By Mouth?3 times a day?for 30?Days Metoprolol (metoprolol 25 mg oral tablet)?12.5?Milligram?0.5?tablet?By Mouth?2 times a day?for 30?Days Miconazole Topical (Secura Antifungal Extra Thick 2% Cream)?1?applicator?Topically?2 times a day Multivitamin?1 tab?By Mouth?Daily Quetiapine (QUEtiapine 50 mg oral tablet)?1?tab(s)?50?Milligram?By Mouth?2 times a day Warfarin (warfarin 7.5 mg oral tablet)?7.5?Milligram?By Mouth?Daily ? Inpatient Medications Medications (9) Active SCHEDULED: (2) Acetaminophen 325 mg Tablet (Acetaminophen Tablet) ??975 mg, By Mouth, Once NaCl 0.9% Flush 3ml (NaCL 0.9% Flush) ??3 mL, IV Push, Every 8 hours CONTINUOUS: (0) PRN: (7) Acetaminophen 325 mg Tablet (Acetaminophen Tablet) ??650 mg, By Mouth, Every 4 hours Dextromethorphan-Guaifenesin 20 mg-200 mg/10 mL Liqu UD (Robitussin DM Liquid) ??10 mL, By Mouth, Every 4 hours Melatonin 3 mg Tablet (Melatonin Tablet) ??3 mg, By Mouth, Daily at bedtime NaCl 0.9% Flush 3ml (NaCL 0.9% Flush) ??3 mL, IV Push, Every 8 hours Polyethylene Glycol 17 Gm Powder (MiraLax Powder) ??17 Gm 1 pack/packet, By Mouth, Daily Senna 8.6 mg / Docusate 50 mg tablet (Docusate/Senna Tablet) ??1 tablet, By Mouth, 2 times a day Simethicone 80 mg Chewable Tablet (Simethicone Tablet) ??80 mg, Chew, 3 times a day ? 72 Hour Antibiotic History Stopped Antibiotics Stop Date/Time Last Administered First Administered Piperacillin-Tazobactam??3.375 Gm, 25 mL/hr, IVPB, Once 03/31/2023 00:25 03/31/2023 00:24 03/31/2023 00:24 ? Results Recent Labs BLOOD COUNT & DIFF WBC 6.8 k/mm3 ()?? 03/30/2023 16:10 RBC 4.28 m/mm3 (Low)?? 03/30/2023 16:10 Hgb 13.2 Gm/dL (Low)?? 03/30/2023 16:10 Hct 39.7 % (Low)?? 03/30/2023 16:10 MCV 92.8 femtoliters ()?? 03/30/2023 16:10 MCH 30.8 pg ()?? 03/30/2023 16:10 MCHC 33.2 g/dL ()?? 03/30/2023 16:10 Platelet Count 270 k/mm3 ()?? 03/30/2023 16:10 RDW-SD 47.3 femtoliters (High)?? 03/30/2023 16:10 MPV 9.6 femtoliters ()?? 03/30/2023 16:10 Nucleated RBC (Automated) 0.0 #/100 WBC'S ()?? 03/30/2023 16:10 Abs. NRBC 0.0 k/mm3 ()?? 03/30/2023 16:10 Abs. Neut 4.6 k/mm3 ()?? 03/30/2023 16:10 Abs. Lymph 1.4 k/mm3 ()?? 03/30/2023 16:10 Abs. Alger 0.5 k/mm3 ()?? 03/30/2023 16:10 Abs. Eo 0.2 k/mm3 ()?? 03/30/2023 16:10 Abs. Baso 0.1 k/mm3 ()?? 03/30/2023 16:10 Neut % 67.9 % ()?? 03/30/2023 16:10 Lymph % 20.9 % ()?? 03/30/2023 16:10 Alger % 7.5 % ()?? 03/30/2023 16:10 Eos % 2.4 % ()?? 03/30/2023 16:10 Baso % 0.9 % ()?? 03/30/2023 16:10 Imm Gran 0.4 % ()?? 03/30/2023 16:10 Abs. Imm Gran 0.0 k/mm3 ()?? 03/30/2023 16:10 ?? CHEM GENERAL Sodium 134 mmol/L ()?? 03/30/2023 16:10 Potassium 4.2 mmol/L ()?? 03/30/2023 16:10 Chloride 101 mmol/L ()?? 03/30/2023 16:10 Bicarbonate Level 22 mmol/L ()?? 03/30/2023 16:10 Anion Gap 11 ()?? 03/30/2023 16:10 Glucose Level 75 mg/dL ()?? 03/30/2023 16:10 BUN 18 mg/dL ()?? 03/30/2023 16:10 Creatinine-Blood 0.5 mg/dL (Low)?? 03/30/2023 16:10 Estimated GFR Creatinine 108 ML/MIN/1.73 M2 ()?? 03/30/2023 16:10 Calcium 8.7 mg/dL ()?? 03/30/2023 16:10 Calcium, Ionized pH Corrected 1.22 mmol/L ()?? 03/30/2023 16:10 Magnesium 2.2 mg/dL ()?? 03/30/2023 16:10 Protein, Total 6.6 Gm/dL ()?? 03/30/2023 16:10 Albumin 3.7 Gm/dL ()?? 03/30/2023 16:10 AG Ratio 1.3 ()?? 03/30/2023 16:10 Alkaline Phosphatase 78 units/L ()?? 03/30/2023 16:10 AST (SGOT) 14 units/L ()?? 03/30/2023 16:10 ALT (SGPT) 9 units/L ()?? 03/30/2023 16:10 Bilirubin, Total 0.5 mg/dL ()?? 03/30/2023 16:10 Lactate 1.2 mmol/L ()?? 03/30/2023 16:10 ?? COAG INR 1.1 ()?? 03/30/2023 16:10 Protime (PT) 11.9 seconds (High)?? 03/30/2023 16:10 APTT 28.9 seconds ()?? 03/30/2023 16:10 ?? ENDOCRINE/TUMOR MARKER TSH 0.97 uIU/mL ()?? 03/30/2023 16:10 ?? UA/URINALYSIS Appear/Color, Urine BROWN MARKEDLY TURBID ()?? 03/30/2023 20:12 Specific Cameron, Urine 1.020 ()?? 03/30/2023 20:12 pH, Urine 8.5 (High)?? 03/30/2023 20:12 Albumin, Urine 3+ (Abnormal)?? 03/30/2023 20:12 Glucose, Urine NEGATIVE ()?? 03/30/2023 20:12 Ketones, Urine NEGATIVE ()?? 03/30/2023 20:12 Bilirubin, Urine NEGATIVE ()?? 03/30/2023 20:12 Hemoglobin, Urine 2+ (Abnormal)?? 03/30/2023 20:12 Nitrite, Urine NEGATIVE ()?? 03/30/2023 20:12 Leukocyte, Urine 3+ (Abnormal)?? 03/30/2023 20:12 Urobilinogen NORMAL mg/dL ()?? 03/30/2023 20:12 WBC's, Urine 16 /HPF (High)?? 03/30/2023 20:12 RBC's, Urine 13 /HPF (High)?? 03/30/2023 20:12 Bacteria SLIGHT HPF (Abnormal)?? 03/30/2023 20:12 Mucus SLIGHT /LPF ()?? 03/30/2023 20:12 Hold Urine Culture Testing available 48 hours from time of collection. ()?? 03/30/2023 20:12 ?? VIROLOGY COVID-19 by RT-PCR NEGATIVE ()?? 03/30/2023 20:12 ? Blood Glucose Trend Glucose Level: 75 mg/dL (03/30/23 16:10:00) ? CBC, CBC w/Diff?? CBC?? Differential?? WBC: 6.8 k/mm3 (16:10) Abs. Neut: 4.6 k/mm3 (16:10) RBC:??4.28 m/mm3??Low (16:10) Abs. Lymph: 1.4 k/mm3 (16:10) Hct:??39.7 %??Low (16:10) Abs. Alger: 0.5 k/mm3 (16:10) RDW-SD:??47.3 femtoliters??High (16:10) Abs. Eo: 0.2 k/mm3 (16:10) Nucleated RBC (Automated): 0 #/100 WBC'S (16:10) Abs. Baso: 0.1 k/mm3 (16:10) Abs. NRBC: 0 k/mm3 (16:10) Neut %: 67.9 % (16:10) ?? Lymph %: 20.9 % (16:10) ?? Alger %: 7.5 % (16:10) ?? Eos %: 2.4 % (16:10) ?? Baso %: 0.9 % (16:10) ?? Imm Gran: 0.4 % (16:10) ?? Abs. Imm Gran: 0 k/mm3 (16:10) ? Urinalysis Albumin, Urine: 3+ Abnormal (20:12) Appear/Color, Urine: BROWN MARKEDLY TURBID (20:12) Bacteria: SLIGHT Abnormal (20:12) Bilirubin, Urine: NEGATIVE (20:12) Glucose, Urine: NEGATIVE (20:12) Hemoglobin, Urine: 2+ Abnormal (20:12) Hold Urine Culture: Testing available 48 hours from time of collection. (20:12) Ketones, Urine: NEGATIVE (20:12) Leukocyte, Urine: 3+ Abnormal (20:12) Mucus: SLIGHT (20:12) Nitrite, Urine: NEGATIVE (20:12) pH, Urine:??8.5??High (20:12) RBC's, Urine:??13 /HPF??High (20:12) Specific Cameron, Urine: 1.02 (20:12) Urobilinogen: NORMAL (20:12) WBC's, Urine:??16 /HPF??High (20:12) ?? Microbiology ?? COVID-19 (Novel Coronavirus), Rapid PCR?? Completed?? Source: Nasal Body Site: Nose Collected Dt/Tm: 03/30/2023 15:14 Last Updated Dt/Tm: 03/30/2023 21:43 ? * Tolu Elizabeth MD: PERFORM Event Display: Admission Note Authored Date: ??Attending Attestation:I??had?discussed the case and its management with the resident and agreed??with the findings and plan as documented in the resident's note. ??I ??took?care to this patient till 7 AM of the admitting date. ? Hospital Progress note * Shanda Mcleod RN: PERFORM, SIGN, VERIFY Event Display: Progress Note Hospital Authored Date: Patient: DEMAIRO FORD Age: 67 years Sex: Male : 1955 Associated Diagnoses: None Author: Shanda Mcleod RN Findings Problem Related to Alteration in Genitourinary : Alteration in Genitourinary Function/new 04/02/2023 21:00 EDT Alteration in Status Related to Urinary retention Goals & Outcomes, Genitourinary Pt will empty bladder completely Interventions, Assess/monitor/maintain Genitourinary status, Assist & encourage pt with meticulous minda care, Encourage PO fluid intake as allowed by diet BH Goals/Interventions, Genitourinary Yes Genitourinary, Problem Start 03/30/2023 23:37 Reviewed Plan with, Genitourinary Patient Patient Progression, Genitourinary Patient progressing according to plan Genitourinary, Problem Ongoing Yes . Evaluation Patient AxOx4; denies any dizziness, lightheadedness, headache, nausea, SOB, cough, or paresthesia of extremities. L BKA noted. Extremities warm(upper)/cool(lower) and dry; no edema noted. Palpable radial, L popliteal, and weak R pedal pulses. Chronic R foot contraction (dorsally flexed) noted. Protective cream applied to pressure ulcer on the patient's L buttock. Patient afebrile; normotensive. Lung sounds clear; oxygen sats: 99-100% on RA. Abdomen soft; non-tender; + BS. Colostomy: stoma pinkand moist; soft brown stool noted in the bag. Barth bag below bladder; draining clear, yellow urine. Some urine leakage noted. Plan: PO abx; urology consult in AM. Bed alert on; call mejisa and personal items in reach. For full assessment details, see CIS. Will continue monitoring the patient. . Discharge Information Case Management Discharge Plan : Case Management Discharge Plan Data 04/03/2023 4:12 EDT Discharge Level of Care at Discharge Not Done: Assessed, No Action Needed (Not Done) 04/01/2023 15:39 EDT Discharge Level of Care at Discharge Homehealth/VNA Discharge VNA/Hospice/Home Care [facility] Service Categories #1 [facility], Other: Barth Cath Care Service Comments #1 Agency will contact you for scheduling home visit * Leonela MACEDO, Pastor D: PERFORM, MODIFY Event Display: Progress Note Hospital Authored Date: [id number] Patient: ??DEMARIO FORD ? Age:??67 Years?Sex:??Male?:??1955?? Subjective ??? Has significant leaking from the Barth catheter, ??? States that??he wants a suprapubic??catheter. ??I explained that this would not be recommended.??At home, he has had 20 [place]??Barth catheters, and has had leakage with dose at times as well. ??? No abdominal pain, nausea or vomiting Review of Systems ?? Constitutional- no fever, no chills HEENT- no ear pain, no tinnitus, no sore throat Respiratory- no shortness of breath?? CVS- no chest pain, no palpitations, no syncope Abdomen- no abdominal pain, nausea or vomiting Neuro- no headache, no paresthesias, bilateral lower extremity weakness - no dysuria, no hematuria Derm- no rash, no pruritis Objective Vital Signs?? Temperature: 97.5 DegF (04/02/23 16:08:00) Temperature Route: Oral (04/02/23 16:08:00) Pulse Rate: 70 bpm (04/02/23 16:08:00) Respiratory Rate: 17 br/min (04/02/23 16:08:00) Systolic Blood Pressure: 112 mm Hg (04/02/23 16:08:00) Diastolic Blood Pressure: 68 mm Hg (04/02/23 16:08:00) Blood pressure sites: Arm, left (04/02/23 11:14:00) Mean Arterial Pressure: 83 mm Hg (04/02/23 16:08:00) Pulse Pressure: 44 mm Hg (04/02/23 16:08:00) Oxygen Saturation: 95 % (04/02/23 16:08:00) Mode of Delivery (Oxygen): Room air (04/02/23 16:08:00) Early Warning Score: 4 (04/02/23 16:09:01) ? Physical Exam General: ??PERRLA, NAD, Moist mucus membranes Neck: No JVD, no carotid bruit CVS: Regular S1 S2, No M/R/G Resp: CTAB, no crepitations or wheezing Abdo: Soft, NT, ND, NABS, left ileostomy, no organomegaly, no masses PIN ATTACHER: AO x 3, No focal neurological deficits. Extremities: b/l L/e 2/5,?? left BKA, Right ankle contracture- contracted in dorsiflexion, No edema, Rt DP and PT palpable _ Inpatient Medications Medications (14) Active SCHEDULED: (7) Apixaban 5 mg Tablet (Eliquis) ??5 mg, By Mouth, 2 times a day Atorvastatin 20 mg Tablet (atorvastatin 20 mg oral tablet) ??20 mg, By Mouth, Daily Furosemide 20 mg Tablet (Lasix 20 mg oral tablet) ??20 mg, By Mouth, 2 times a day Metoprolol 25mg Tablet (metoprolol 25 mg oral tablet) ??12.5 mg, By Mouth, 2 times a day NaCl 0.9% Flush 3ml (NaCL 0.9% Flush) ??3 mL, IV Push, Every 8 hours Oxybutynin 5 mg ER Tablet (oxybutynin 5 mg/24 hours oral tablet, extended release) ??10 mg, By Mouth, Daily at bedtime Sulfamethoxazole 800 mg/Trimethoprim 160 mg Tablet (Bactrim DS Tablet) ??1 tablet, By Mouth, 2 times a day CONTINUOUS: (0) PRN: (7) Acetaminophen 325 mg Tablet (Acetaminophen Tablet) ??650 mg, By Mouth, Every 4 hours Dextromethorphan-Guaifenesin 20 mg-200 mg/10 mL Liqu UD (Robitussin DM Liquid) ??10 mL, By Mouth, Every 4 hours Melatonin 3 mg Tablet (Melatonin Tablet) ??3 mg, By Mouth, Daily at bedtime NaCl 0.9% Flush 3ml (NaCL 0.9% Flush) ??3 mL, IV Push, Every 8 hours Polyethylene Glycol 17 Gm Powder (MiraLax Powder) ??17 Gm 1 pack/packet, By Mouth, Daily Senna 8.6 mg / Docusate 50 mg tablet (Docusate/Senna Tablet) ??1 tablet, By Mouth, 2 times a day Simethicone 80 mg Chewable Tablet (Simethicone Tablet) ??80 mg, Chew, 3 times a day ? Results Recent Labs BLOOD COUNT & DIFF WBC 6.7 k/mm3 ()?? 04/01/2023 00:45 RBC 4.12 m/mm3 (Low)?? 04/01/2023 00:45 Hgb 12.7 Gm/dL (Low)?? 04/01/2023 00:45 Hct 39.2 % (Low)?? 04/01/2023 00:45 MCV 95.1 femtoliters (High)?? 04/01/2023 00:45 MCH 30.8 pg ()?? 04/01/2023 00:45 MCHC 32.4 g/dL (Low)?? 04/01/2023 00:45 Platelet Count 239 k/mm3 ()?? 04/01/2023 00:45 RDW-SD 48.7 femtoliters (High)?? 04/01/2023 00:45 MPV 9.7 femtoliters ()?? 04/01/2023 00:45 Nucleated RBC (Automated) 0.0 #/100 WBC'S ()?? 04/01/2023 00:45 Abs. NRBC 0.0 k/mm3 ()?? 04/01/2023 00:45 ?? CHEM GENERAL Sodium 136 mmol/L ()?? 04/01/2023 00:45 Potassium 4.4 mmol/L ()?? 04/01/2023 00:45 Chloride 103 mmol/L ()?? 04/01/2023 00:45 Bicarbonate Level 22 mmol/L ()?? 04/01/2023 00:45 Anion Gap 11 ()?? 04/01/2023 00:45 Glucose Level 95 mg/dL ()?? 04/01/2023 00:45 BUN 18 mg/dL ()?? 04/01/2023 00:45 Creatinine-Blood 0.6 mg/dL (Low)?? 04/01/2023 00:45 Estimated GFR Creatinine 103 ML/MIN/1.73 M2 ()?? 04/01/2023 00:45 Calcium 8.6 mg/dL ()?? 04/01/2023 00:45 ?? URINE OTHER Est Creatinine Clearance 105.39 mL/min ()?? 04/01/2023 01:51 ? Assessment/Plan ?? 67 w/ chronic indwelling catheter since 2010 presenting with urinary dribbling, hematuria, dysuria,leaking of urine around catheter, in the setting of complicated UTI + dislodged urinary catheter. Has been removed at ED but was unable to be replaced as ED. Plan for General anesthesia??replacement by urology in the AM ?? Complicated UTI Chronic indwelling catheter??2/2 chronic neurogenic bladder (since 2010) Hematuria related to catheter trauma in a chronically catheterized patient ? -catheter was removed in ED due to leakage/malfunction, and was unable to replace it - so Urology was consulted - underwent barth catheter placement by Urology at bedside on 03/31, with 18 [place] - no further hematuria - now has leakage from barth catheter. I called Urology today, 04/02- for possibly upsizing Barth catheter. (urology called due to previous inability to replace barth as above, which required urology placement of barth) - f/u with outpatient Urologist Dr. Bertrand KIRBY for catheter care and catheter changes, q4 weekly. -he had issues with VNA services-?? consulted CM- CM was able to obtain services to start from nextweek -was on IV zosyn, and switched to PO bactrim ?Continue Oxybutynin, no longer takes BID, mirabegron nonformulary - ? Hx of Atrial fibrillation PVD with h/o left BKA h/o mildly reduced EF, EF 45-50%??on remote ??ECHO. ? - Eliquis for A/C for Afib - Continue Metoprolol 12.5mg BID - Continue home statin ??- outpatient f/u for cardiomyopathy,?? no recent EHCO ? h/o Ascending aortic aneurysm with rupture s/p repair, with paraplegia, ischemic left foot, s/p left BKA in 2010 -no acute issues ?? Rt ankle contracture/- chronic ?? Depression:- Continue fluoxetine 40mg daily ?? - Code: Full - - Diet: Cardiac diet ?OMN- CM worked on [employer], to start tomorrow. Urology reconsulted to upsize barth ?? * Sujata Núñez: PERFORM, MODIFY, SIGN, VERIFY, MODIFY, SIGN, SIGN, MODIFY Event Display: Progress Note Hospital Authored Date: Patient: DEMARIO FORD Age: 67 years Sex: Male : 1955 Associated Diagnoses: None Author: Sujata Núñez Findings Problem Related to Self Care Deficit : Self Care Deficit/new 04/01/2023 21:00 EDT Self Care Deficit Related to Impaired mobility Goals & Outcomes, Self Care Deficit Pt will safely perform self care to maximum ability Interventions, Self Care Deficit Assess ability to carry out ADL's, Assess patient's need for assistive devices, Encourage pt to use stronger side as best as possible, Teach and encourage good hygiene to preven infection, Assist patient with ADLs prn, Encourage patient to participate in ADLs prn Goals/Interventions,Self Care Deficit Yes Self Care Deficit, Problem Start 04/01/2023 21:15 Reviewed plan with, Self Care Deficit Patient Patient Progression, Self Care Deficit Plan Initiation . Narrative/Incidental Assume care at 1830H. Patient is A/O x4. VSS. No complaints so far. Colostomy bag intact, drained. Hardened stool near the stoma seen, refused to cleanse it. Barth catheter leaking, seen urine comingout from penis and draining well on the bag as well. He stated that he has experienced barth cath leaking before alos. Informed covering MD to note. Bilateral buttocks small wound seen, exposed. Right leg flaky, dry skin. Encouraged patient to turn on alternate side to prevent pressure ulcer , he refused. Safety measures advised. Call mejias palced within reach. Will continue to monitor and report change. . Discharge Information Case Management Discharge Plan : Case Management Discharge Plan Data 04/01/2023 15:39 EDT Discharge Level of Care at Discharge Homehealth/VNA Discharge VNA/Hospice/Home Care [facility] Service Categories #1 [facility], Other: Barth Cath Care Service Comments #1 Agency will contact you for scheduling home visit * Sujata Núñez Ann: PERFORM Event Display: Progress Note Hospital Authored Date: No other complaints overnight aside from the leaking barth catheter. Change diaper x2, with minimal leak of urine. Note * Nate Nguyen RN: PERFORM Event Display: Discharge/Transfer Note Hospital Authored Date: Nursing Discharge Note Entered On: 04/03/2023 12:54 EDT Performed On: 04/03/2023 12:54 EDT by Nate Nguyen RN Nursing Discharge Note 2 Discharge Time : 04/03/2023 13:40 EDT Nate Nguyen RN - 04/03/2023 15:52 EDT Discharge Level of Care at Discharge : Homehealth/VNA Discharge VNA/Hospice/Home Care(v001) : [facility] Patient Left Unit Via : Ambulance Patient Accompanied Off Unit with : Ambulance/[facility] Personnel Handover Given to Transport Personnel : Yes DC Instructions Provided & Signed by Pt : Yes Patient Understands D/C Instructions : Yes Patient Instructions Discharge Signed : Yes Did Pt have Specialty Bed or Wound Vac : Yes Nate Nguyen RN - 04/03/2023 12:54 EDT * Gowdar MD, Pastor D: MODIFY, MODIFY, PERFORM, MODIFY Event Display: Discharge/Transfer Note Hospital Authored Date: [id number] Patient: ??CHUCARMELODEMARIO MOORE ? Age:??67 Years?Sex:??Male?:??1955?? Patient Information Discharge Location: [facility] Primary Care Physician: Bolivar Johnson MD Admit Date/Time: 03/30/23 23:37 Discharge Disposition Discharge Disposition: Home with Home Health Discharge Diagnosis Complicated UTI (urinary tract infection) (N39.0) Hematuria (R31.9) Indwelling Barth catheter present (Z97.8) ?? _ Discharge Medications Acetaminophen (Tylenol 325 mg oral tablet)?2?tab(s)?650?Milligram?By Mouth?Every 6 hours?as needed?Pain apixaban (Eliquis 5 mg oral tablet)?1?tab(s)?5?Milligram?By Mouth?2 times a day Atorvastatin (atorvastatin 20 mg oral tablet)?1?tab(s)?20?Milligram?By Mouth?Daily Fluoxetine (fluoxetine 20 mg oral tablet)?2?tab(s)?40?Milligram?By Mouth?Daily Metoprolol (metoprolol 25 mg oral tablet)?12.5?Milligram?0.5?tablet?By Mouth?2 times a day?for 30?Days mirabegron (Myrbetriq 50 mg oral tablet, extended release)?1?tab(s)?50?Milligram?By Mouth?Daily?do not crush or chew Miscellaneous Rx (FUROSEMIDE 20 MG TABLET)?20?Milligram?By Mouth?2 times a day?for 20?Days?TAKE 1 TABLET BY MOUTH TWICE A DAY Multivitamin?1 tab?By Mouth?Daily Oxybutynin (oxybutynin 10 mg/24 hr oral tablet, extended release)?1?tab(s)?10?Milligram?By Mouth?Daily at bedtime?for 30?Days?TAKE 1 TABLET BY MOUTH TWICE DAILY Sulfamethoxazole/Trimethoprim (Bactrim DS 800 mg-160 mg oral tablet)?1?tab(s)?By Mouth?2 times a day?for 5?Days ? Hospital Course ?67 w/ chronic indwelling catheter since 2010 presenting with urinary dribbling, hematuria, dysuria, leaking of urine around catheter, in the setting of complicated UTI + dislodged urinary catheter. Has been removed at ED but was unable to be replaced as ED. Plan for General anesthesia??replacement by urology in the AM ?? Complicated UTI Chronic indwelling catheter??2/2 chronic neurogenic bladder (since 2010) Hematuria related to catheter trauma in a chronically catheterized patient ? -catheter was removed in ED due to leakage/malfunction, and was unable to replace it - so Urology was consulted - underwent barth catheter placement by Urology at bedside on 03/31, with 18 [place]. He subsequently had some leakage through barth, and urology recommended instilling another 10ml?? NS into barth balloon. They would not recommend upsizing barth - no further hematuria ?? - f/u with outpatient Urologist Dr. Thurston - Cullen for catheter care and catheter changes, q4 weekly. -was on IV zosyn, and discharged on PO Bactrim ?Continue Oxybutinin, no longer takes BID, mirabegron nonformulary - ? Hx of Atrial fibrillation PVD with h/o left BKA h/o mildly reduced EF, EF 45-50%??on remote ??ECHO. ? - Eliquis for A/C for Afib - Continue Metoprolol 12.5mg BID - Continue home statin ??- outpatient f/u for cardiomyopathy,?? no recent EHCO ?? - also has Rt ankle contracture/ deformity , in dorsiflexion ?? h/o Ascending aortic aneurysm with rupture s/p repair, with paraplegia, ischemic left foot, s/p left BKA in 2011 -no acute issues ?? Stage 3?? ulcers bilateral buttocks - present on admission - consulted wound care-?Wound recs as below ?? 1.) Bilateral Ischium: Irrigate with Vashe. Allow to dry/Pat dry. For slit like ulcers- Cut a pieceof Aquacel in a spiral shape to form one long piece. Gently pack into the wound bed leaving a tail for easy retrieval. Cover with Mepilex 4x4 dressings. May cover with tegarderms to protect from moisture. Change every other day.?? 2.) Rt Ischium:??Cleanse with pH balanced cleanser. Pat dry. Apply Triad dressing thinly to open areas. Reapply thin layer as needed with incontinence care.?? 3.) Continue use of specialty bed/low air loss mattress?? 4.) Turn and reposition every 2 hours and PRN?? 5.) Continue incontinence care as well as moisture management 6.) Continue to offload bony prominences?? 7.) Float heels?? 8.) Continue to provide optimal nutritional support?? 9.) Provide Gaymar cushion to chair when patient OOB ? Depression:- Continue fluoxetine 40mg daily ?? - Code: Full - - Diet: Cardiac diet ?Addendum- patient could not be discharged today as lack of VNA and PUSHER OPERATOR, as per??CM. ??Case management working to get??home services. This will serve as progress note for date of service 04/01/2023 ?? Objective Vital Signs?? Temperature: 97.9 DegF (04/03/23 07:30:00) Temperature Route: Oral (04/03/23 07:30:00) Pulse Rate: 72 bpm (04/03/23 09:07:00) Respiratory Rate: 18 br/min (04/03/23 07:30:00) Systolic Blood Pressure: 138 mm Hg (04/03/23 09:07:00) Diastolic Blood Pressure: 57 mm Hg (04/03/23 09:07:00) Blood pressure sites: Arm, left (04/03/23 07:30:00) Mean Arterial Pressure: 84 mm Hg (04/03/23 07:30:00) Pulse Pressure: 81 mm Hg (04/03/23 07:30:00) Oxygen Saturation: 99 % (04/03/23 07:30:00) Mode of Delivery (Oxygen): Room air (04/03/23 07:30:00) Early Warning Score: 2 (04/03/23 09:08:44) ? . Physical Exam General: ??PERRLA, NAD, Moist mucus membranes Neck: No JVD, no carotid bruit CVS: Regular S1 S2, No M/R/G Resp: CTAB, no crepitations or wheezing Abdo: Soft, NT, ND, NABS, left ileostomy, no organomegaly, no masses PIN ATTACHER: AO x 3, No focal neurological deficits. Extremities: b/l L/e 2/5,?? left BKA, Right ankle contracture- contracted in dorsiflexion, No edema,?? Rt gluteal stage 3 ulcer with red granulation tissue.? Slit like ulcers in Left ischium- no drainage, surrounding skin hypopigmented?? patches Pending Results Add On Lab Order ordered on 03/30/2023 Add On Lab Order ordered on 03/31/2023 Hold Lavender Tube (BB) ordered on 03/30/2023 Follow-Up Appointments Added Follow Up ?Time Frame ?Comments Dhruv Thurston?2 to 3 weeks Bolivar Harris?1 week Post Discharge Care Code Status: ?? Full Resuscitation Discharge ?after barth catheter balloon is instilled with additional 10 ml NS, ??04/03/23 9:54:00 EDT Discharge Prescriptions ?ePrescribed, ??04/03/23 9:53:00 EDT ?ePrescribed, ??04/01/23 9:58:00 EDT Home Health Face to Face *Denotes mandatory garcia ?? *I certify that this patient is under my care and that I or an allowed non- physician working with me had a face to face encounter with the patient on this date:??04/03/2023 11:39 ?? *The encounter with the patient was in whole, or in part, for the following medical condition, which is the primary diagnosis(es) for home health care:??Complicated UTI (urinary tract infection) (N39.0) Hematuria (R31.9) Indwelling Barth catheter present (Z97.8) ? *Select the indications for the discipline/s that are being arranged for this patient. Nursing (select all that apply): [_] None [_] Medication management (reconciliation, teaching)?? [_] Chronic disease management?? [X_] Wound care and treatment?? [_] Home safety evaluation [_] Administer SQ/IM/IV medications?? [X_] Cath care?? [_] Drain care?? [_] Trach or GT care?? Other _Foley catheter care, pressure ulcer wound care.?? Will need barth catheter replacement every4 weeks, next change 04/29/23 ?? Occupation Therapy (select all that apply): [_] None [_] ADL Management [_] Fall prevention training [_] Energy conservation [_] Cognitive training Other _ Physical Therapy (select all that apply): [_] None [_] Functional mobility training [_] Home exercise program to strengthen [_] Increase ROM?? [_] Falls prevention training [_] Home maintenance program for chronic disease Other _ Speech Therapy (select all that apply): [_] None [_] Swallow evaluation and training [_] Speech and language training [_] Cognitive training to process, organize, and/or recall information Other _ ? *Homebound due to (select all that apply): [X] Inability to leave home without assistance/supervision [_] Inability to ambulate without assistance [_] Pain [X Decreased strength and endurance [_] Unsteady gait [_] Severe SOB and fatigue [_] Impaired transfers [_] Inability to negotiate stairs [_] Limited weight bearing [_] Mental status change? *Physician Signature: _Pastor Gipson MD ?? *By signing this, I certify that I have personally evaluated the patient and agree with the findings and recommendations as documented above. ? F Results Discharge Labs BLOOD COUNT & DIFF WBC 6.7 k/mm3 ()?? 04/01/2023 00:45 RBC 4.12 m/mm3 (Low)?? 04/01/2023 00:45 Hgb 12.7 Gm/dL (Low)?? 04/01/2023 00:45 Hct 39.2 % (Low)?? 04/01/2023 00:45 MCV 95.1 femtoliters (High)?? 04/01/2023 00:45 MCH 30.8 pg ()?? 04/01/2023 00:45 MCHC 32.4 g/dL (Low)?? 04/01/2023 00:45 Platelet Count 239 k/mm3 ()?? 04/01/2023 00:45 RDW-SD 48.7 femtoliters (High)?? 04/01/2023 00:45 MPV 9.7 femtoliters ()?? 04/01/2023 00:45 Nucleated RBC (Automated) 0.0 #/100 WBC'S ()?? 04/01/2023 00:45 Abs. NRBC 0.0 k/mm3 ()?? 04/01/2023 00:45 Abs. Neut 4.6 k/mm3 ()?? 03/30/2023 16:10 Abs. Lymph 1.4 k/mm3 ()?? 03/30/2023 16:10 Abs. Alger 0.5 k/mm3 ()?? 03/30/2023 16:10 Abs. Eo 0.2 k/mm3 ()?? 03/30/2023 16:10 Abs. Baso 0.1 k/mm3 ()?? 03/30/2023 16:10 Neut % 67.9 % ()?? 03/30/2023 16:10 Lymph % 20.9 % ()?? 03/30/2023 16:10 Alger % 7.5 % ()?? 03/30/2023 16:10 Eos % 2.4 % ()?? 03/30/2023 16:10 Baso % 0.9 % ()?? 03/30/2023 16:10 Imm Gran 0.4 % ()?? 03/30/2023 16:10 Abs. Imm Gran 0.0 k/mm3 ()?? 03/30/2023 16:10 ?? CHEM GENERAL Sodium 136 mmol/L ()?? 04/01/2023 00:45 Potassium 4.4 mmol/L ()?? 04/01/2023 00:45 Chloride 103 mmol/L ()?? 04/01/2023 00:45 Bicarbonate Level 22 mmol/L ()?? 04/01/2023 00:45 Anion Gap 11 ()?? 04/01/2023 00:45 Glucose Level 95 mg/dL ()?? 04/01/2023 00:45 BUN 18 mg/dL ()?? 04/01/2023 00:45 Creatinine-Blood 0.6 mg/dL (Low)?? 04/01/2023 00:45 Estimated GFR Creatinine 103 ML/MIN/1.73 M2 ()?? 04/01/2023 00:45 Calcium 8.6 mg/dL ()?? 04/01/2023 00:45 Calcium, Ionized pH Corrected 1.22 mmol/L ()?? 03/30/2023 16:10 Magnesium 2.2 mg/dL ()?? 03/30/2023 16:10 Protein, Total 6.6 Gm/dL ()?? 03/30/2023 16:10 Albumin 3.7 Gm/dL ()?? 03/30/2023 16:10 AG Ratio 1.3 ()?? 03/30/2023 16:10 Alkaline Phosphatase 78 units/L ()?? 03/30/2023 16:10 AST (SGOT) 14 units/L ()?? 03/30/2023 16:10 ALT (SGPT) 9 units/L ()?? 03/30/2023 16:10 Bilirubin, Total 0.5 mg/dL ()?? 03/30/2023 16:10 Lactate 1.2 mmol/L ()?? 03/30/2023 16:10 ?? COAG INR 1.1 ()?? 03/30/2023 16:10 Protime (PT) 11.9 seconds (High)?? 03/30/2023 16:10 APTT 28.9 seconds ()?? 03/30/2023 16:10 ? ENDOCRINE/TUMOR MARKER PSA 0.6 ng/mL ()?? 03/30/2023 16:10 TSH 0.97 uIU/mL ()?? 03/30/2023 16:10 ?? UA/URINALYSIS Appear/Color, Urine BROWN MARKEDLY TURBID ()?? 03/30/2023 20:12 Specific Cameron, Urine 1.020 ()?? 03/30/2023 20:12 pH, Urine 8.5 (High)?? 03/30/2023 20:12 Albumin, Urine 3+ (Abnormal)?? 03/30/2023 20:12 Glucose, Urine NEGATIVE ()?? 03/30/2023 20:12 Ketones, Urine NEGATIVE ()?? 03/30/2023 20:12 Bilirubin, Urine NEGATIVE ()?? 03/30/2023 20:12 Hemoglobin, Urine 2+ (Abnormal)?? 03/30/2023 20:12 Nitrite, Urine NEGATIVE ()?? 03/30/2023 20:12 Leukocyte, Urine 3+ (Abnormal)?? 03/30/2023 20:12 Urobilinogen NORMAL mg/dL ()?? 03/30/2023 20:12 WBC's, Urine 16 /HPF (High)?? 03/30/2023 20:12 RBC's, Urine 13 /HPF (High)?? 03/30/2023 20:12 Bacteria SLIGHT HPF (Abnormal)?? 03/30/2023 20:12 Mucus SLIGHT /LPF ()?? 03/30/2023 20:12 Hold Urine Culture Testing available 48 hours from time of collection. ()?? 03/30/2023 20:12 ?? URINE OTHER Est Creatinine Clearance 105.39 mL/min ()?? 04/01/2023 01:51 ? VIROLOGY COVID-19 by RT-PCR NEGATIVE ()?? 03/30/2023 20:12 ? 35_ minutes spent on discharge * Wendy GEE, Nate Hernandez: PERFORM, MODIFY Event Display: Patient Education/Instruction Authored Date: [id number] Inpatient Adult Discharge Instructions [address] [address] Name: DEMARIO FORD : 1955 Visit: 03/30/2023 23:37:00 Current Date: 04/03/2023 12:55 Account: [id number] Inpatient Adult Discharge Instructions We would like to thank you for allowing us to assist you with your healthcare needs. The following includes patient education materials and information regarding your injury/illness. Our entire staffstrives to provide an excellent experience for our patients and their families. PLEASE ENSURE YOU FOLLOW-UP PER THE INSTRUCTIONS BELOW! ?? YOUR OPINION IS IMPORTANT TO US! Please complete the survey you may receive by mail or email. Your feedback will be used to make improvements to the healthcare experiences of our patients and their families. Surveys are administered by [employer] ?? If further treatment with your primary care physician or another doctor is recommended, it is important for you to keep the appointment. Call your primary care physician or return to the Emergency Department immediately if your condition worsens, fails to improve, or new symptoms develop. If you need to find a doctor, you can call [email or web address] for a referral at [phone] or toll free at [phone] or log in to [email or web address].. ?? You can view and manage your care through the patient portal or by using a health care dashawn of your choosing. [employer] is a website that allows you to securely view your medical information including your hospital discharge summary, office visit summaries, medications and follow-up visits. You can also request appointments, renew medications, and request access to your medical information using a health care dashawn of your choosing, or just ask a question. You can enroll at [email or web address] or register during your next office visit. You have been discharged from [facility], Patient Care Unit: S3. If you have any questions regarding these instructions after you leave, please call us and we will be happy to assist you. [facility] Your Care Team Attending Physician Pastor Gipson MD Consulting Providers Carolin Durán MA Discharging Providers Pastor Gipson MD Reason for Admission Abdominal pain Your Diagnosis Complicated UTI (urinary tract infection) Indwelling Barth catheter present Hematuria Tests Performed Below is a partial list of the tests performed during your hospitalization. You may have had other tests and procedures not included in this list. Please discuss all test results with your provider. Basic Metabolic Panel Calcium Ionized CBC CBC w/ Differential Comprehensive Metabolic Panel COVID-19 (Novel Coronavirus), Rapid PCR INR Lactate Level Magnesium Level PSA PTT TSH with T4 Reflex (Adults Only) Urinalysis w/hold for Urine Culture CT Abdomen and Pelvis W/O Contrast Primary Care Provider Bolivar Johnson MD Advance Directive Health Care Proxy on File No Patient refuses to discuss Discharge Vitals Temperature: 97.5 DegF Height: 168 cm Pulse Rate: 71 bpm Weight: 123 kg Respiratory Rate: 18 br/min Body Mass Index:??43.58 kg/m2??Critical Systolic Blood Pressure: 104 mm Hg Body surface area: 2.4 Diastolic Blood Pressure: 55 mm Hg ?? Oxygen Saturation: 96 % ?? Studies Pending All tests and labs ordered during this hospital stay have been completed unless listed below. Please discuss all pending results with your provider listed above in these instructions. ?? Add On Lab Order Hold Lavender Tube (BB) What to do next Instructions From Your Doctor Discharge Orders Wound Care:??Wound Site: Bilateral Ischium: Irrigate with Vashe. Allow to dry/Pat dry. Cut a piece of Aquacel in a spiral shape to form one long piece. Gently pack into the wound bed leaving a tail for easy retrieval. Cover with Mepilex 4x4 dressings. May cover with tegarderms every other day Yes. Right Ischium: Cleanse with pH balanced cleanser. Pat dry. Apply Triad dressing thinly to open areas. Reapply thin layer as needed with incontinence care. Daily Yes Code Status:?? Full Resuscitation You Need to Schedule the Following Appointments Follow Up with??Dhruv Thurston When:??Within 2 to 3 weeks Where: [address] [facility] [address] [facility] [place] [address]- Business (1) Follow Up with??Bolivar Harris When:??Within 1 week Where: [address] [place] [address]- Business (1) Discharge Medications DEMARIO FORD :1955 Visit Date:03/30/2023 Medications: Please continue your medications until treatment is completed or stopped by your provider. Medications not listed below should be discontinued. Discuss any questions related to medications with your provider. What How Much When Instructions Next Dose New Sulfamethoxazole/ Trimethoprim (Bactrim DS 800 mg-160mg oral tablet) 1 tab(s) Oral Twice a day Duration: 5 Days Pickup at [facility]/pharmacy #[id number] 04/03 9pm Unchanged Acetaminophen (Tylenol 325 mg oral tablet) 2 tab(s) Oral Every 6 hours as needed for Pain anytime after 7pm today as needed Unchanged apixaban (Eliquis 5 mg oral tablet) 1 tab(s) Oral Twice a day 04/03 9pm Unchanged Atorvastatin (atorvastatin 20 mg oral tablet) 1 tab(s) Oral Daily 04/04 9am Unchanged Fluoxetine (fluoxetine 20 mg oral tablet) 2 tab(s) Oral Daily 04/04 9am Unchanged Metoprolol (metoprolol 25 mg oral tablet) 0.5 tab(s) Oral Twice a day Duration: 30 Days 04/03 9pm Unchanged mirabegron (Myrbetriq 50 mg oral tablet, extended release) 1 tab(s) Oral Daily do not crush or chew ?? 04/04 9am Unchanged Miscellaneous Rx (FUROSEMIDE 20 MG TABLET) 20 Milligram Oral Twice a day Duration: 20 Days TAKE 1 TABLET BY MOUTH TWICE A DAY ?? 7 3pm Unchanged Multivitamin 1 tab Oral Daily 04/04 9am Unchanged Oxybutynin (oxybutynin 10 mg/ 24 hr oral tablet, extended release) 1 tab(s) Oral Daily at Bedtime Duration: 30 Days TAKE 1 TABLET BY MOUTH TWICE DAILY ?? 04/03 9pm Pharmacy Information [facility]/pharmacy #[id number]: [address], [place] [id number] [phone] ?? What How Much When Comments Stop Taking Ammonium Lactate 12% (ammonium lactate topical 10% cream) 1 applicator Topically Twice a day as needed for Itch Dry Skin Stop Taking Aspirin (Aspirin Tablet) 81 Milligram Oral Daily Stop Taking Gabapentin (gabapentin 300 mg oral capsule) 1 capsule Oral 3 times a day Duration: 30 Days Stop Taking Miconazole Topical (Secura Antifungal Extra Thick 2% Cream) 1 applicator Topically Twice a day Stop Taking Quetiapine (QUEtiapine 50 mg oral tablet) 1 tab(s) Oral Twice a day Stop Taking Warfarin (warfarin 7.5 mg oral tablet) 7.5 Milligram Oral Daily Test Results Below is a partial list of the most recent Laboratory test results done prior to this discharge. You may have had other tests and procedures not included in this list. Please discuss all test resultswith your provider. Est Creatinine Clearance - 105.39 mL/min (04/01/2023) Basic Metabolic Panel (04/01/2023) ???Sodium - 136 mmol/L???Potassium - 4.4 mmol/L???Chloride - 103 mmol/L???Bicarbonate Level - 22 mmol/L???Anion Gap - 11???Glucose Level - 95 mg/dL???BUN - 18 mg/dL???Creatinine-Blood - 0.6 mg/dL???Estimated GFR Creatinine - 103 ML/MIN/1.73 M2???Calcium - 8.6 mg/dL Calcium Ionized (03/30/2023) ???Calcium, Ionized pH Corrected - 1.22 mmol/L CBC (04/01/2023) ???WBC - 6.7 k/mm3???RBC - 4.12 m/mm3???Hgb - 12.7 Gm/dL???Hct - 39.2 %???MCV - 95.1 femtoliters???MCH - 30.8 pg???MCHC - 32.4 g/dL???Platelet Count - 239 k/mm3???RDW-SD - 48.7 femtoliters???MPV - 9.7 femtoliters???Nucleated RBC (Automated) - 0.0 #/100 WBC'S???Abs. NRBC - 0.0 k/mm3 CBC w/ Differential (03/30/2023) ???WBC - 6.8 k/mm3???RBC - 4.28 m/mm3???Hgb - 13.2 Gm/dL???Hct - 39.7 %???MCV - 92.8 femtoliters???MCH - 30.8 pg???MCHC - 33.2 g/dL???Platelet Count - 270 k/mm3???RDW-SD - 47.3 femtoliters???MPV - 9.6 femtoliters???Nucleated RBC (Automated) - 0.0 #/100 WBC'S???Abs. NRBC - 0.0 k/mm3???Abs. Neut - 4.6 k/mm3???Abs. Lymph - 1.4 k/mm3???Abs. Alger - 0.5 k/mm3???Abs. Eo - 0.2 k/mm3???Abs. Baso - 0.1 k/mm3???Neut % - 67.9 %???Lymph % - 20.9 %???Alger % - 7.5 %???Eos % - 2.4 %???Baso % - 0.9 %???Imm Gran- 0.4 %???Abs. Imm Gran - 0.0 k/mm3 Comprehensive Metabolic Panel (03/30/2023) ???Sodium - 134 mmol/L???Potassium - 4.2 mmol/L???Chloride - 101 mmol/L???Bicarbonate Level - 22 mmol/L???Anion Gap - 11???Glucose Level - 75 mg/dL???BUN - 18 mg/dL???Creatinine-Blood - 0.5 mg/dL???Estimated GFR Creatinine - 108 ML/MIN/1.73 M2???Calcium - 8.7 mg/dL???Protein, Total - 6.6 Gm/dL???Alb umin - 3.7 Gm/dL???AG Ratio - 1.3???Alkaline Phosphatase - 78 units/L???AST (SGOT) - 14 units/L???ALT (SGPT) - 9 units/L???Bilirubin, Total - 0.5 mg/dL COVID-19 (Novel Coronavirus), Rapid PCR (03/30/2023) ???COVID-19 by RT-PCR - NEGATIVE INR (03/30/2023) ???INR - 1.1???Protime (PT) - 11.9 seconds Lactate Level (03/30/2023) ???Lactate - 1.2 mmol/L Magnesium Level (03/30/2023) ???Magnesium - 2.2 mg/dL PSA (03/30/2023) ???PSA - 0.6 ng/mL PTT (03/30/2023) ???APTT - 28.9 seconds TSH with T4 Reflex (Adults Only) (03/30/2023) ???TSH - 0.97 uIU/mL Urinalysis w/hold for Urine Culture (03/30/2023) ???Appear/Color, Urine - BROWN MARKEDLY TURBID???Specific Cameron, Urine - 1.020???pH, Urine - 8.5???Albumin, Urine - 3+???Glucose, Urine - NEGATIVE???Ketones, Urine - NEGATIVE???Bilirubin, Urine - NEGATIVE???Hemoglobin, Urine - 2+???Nitrite, Urine - NEGATIVE???Leukocyte, Urine - 3+???Urobilinogen - NORMAL???WBC's, Urine - 16 /HPF???RBC's, Urine - 13 /HPF???Bacteria - SLIGHT???Mucus - SLIGHT???Hold Urine Culture - Testing available 48 hours from time of collection. Allergies (NKA means No Known Allergies) NKA Problems Active Problems??(8) Chest pain on respiration?? Depressive disorder?? Gangrene?? Hypotensive episode?? Iliac dissection?? PVD - Peripheral vascular disease?? Right leg pain?? Severe obesity?? Education Materials Below is the list of Educational Leaflet Providered with your Discharge Instructions. Valuables and Belongings I fully understand and agree that [facility] accepts no responsibility for all my personal property including clothing, toilet articles, radios, jewelry, dentures, hearing aids, rings, money, or any other property that is in my possession or is brought to me after admission. I understand certain valuables may be placed in a hospital safe for a short period of time. I understand that the hospital is not liable for loss or damage due to accident, fire, or other natural occurrence while said property is in the safe. I accept full responsibility for any personal property that I keep with me, and will not hold the hospital responsible in case of loss or disappearance. I acknowledge that i have been encouraged to send valuables and belongings home. ?? No Valuables/Belongings: No valuables/belongings present Review of Valuable and Belonging List: With patient Date for Pt to Sign Valuables/Belongings: 04/03/23 12:43:00 ?? Other Discharge Information ?? Wound Assessment?? Wound Assessment?? Wound Location I: Buttocks, Left Wound Type I: Other: small round open wound Wound I, Present on Admission: Yes Wound Location II: Buttocks, Right Wound Type II: Other: small round open wound Wound II, Present on Admission: Yes ? Case Management Discharge Plan?? Discharge Plan?? Discharge Agency Information?? Discharge Level of Care at Discharge: Homehealth/VNA Service Categories #1: [facility], Other: Barth Cath Care Discharge VNA/Hospice/Home Care: [facility] Comments #1: Agency will contact you for scheduling home visit ?? Pulmonary Rehab Status?? Pulmonary Rehab Discharge Status?? Respiratory Rate: 18 br/min ? Common Emergency Awareness Tips IS IT A STROKE? Act FAST and Check for these signs: FACE Does the face look uneven? ARM Does one arm drift down? SPEECH Does their speech sound strange? TIME Call at any sign of stroke ?? Heart Attack Signs Chest discomfort: Most heart attacks involve discomfort in the center of the chest and lasts more than a few minutes, or goes away and comes back. It can feel like uncomfortable pressure, squeezing, fullness or pain. Discomfort in upper body: Symptoms can include pain or discomfort in one or both arms, back, neck, jaw or stomach. Shortness of breath: With or without discomfort. Other signs: Breaking out in a cold sweat, nausea, or lightheaded. Remember, MINUTES DO MATTER. If you experience any of these heart attack warning signs, call to get immediate medical attention! ?? Smoking can increase your chances of developing chronic health problems and can cause harmful effects to other family members in your house. If you smoke, you are strongly encouraged to quit. Please call [facility] at [phone] or [phone] ([phone]) or log in to [email or web address] for referrals to smoking cessation programs. ?? 759 Suicide & Crisis Lifeline is available 17/04 if you or someone you know needs to find a reason to keep living. By calling 001 you'll be connected to a skilled, trained counselor at a crisis center in your area. INPATIENT DISCHARGE INSTRUCTIONS SIGNATURE PAGE DEMARIO FORD Location:[facility] Registration Date and Time:03/30/2023 23:37 EDT Primary Care Physician: Alex Harris MD, [place], Attending Physician: Leonela MACEDO, Pastor Kern, I CHUDESHAUNDEMARIO, have received the above patient education materials/instructions and haveverbalized understanding. If ambulance or transport services are being used I further acknowledge being given a choice of service. ?? If you need to contact me, please call me at this number: . Patient/Photo Technologist Name: Patient/Photo Technologist Signature: Relationship to Patient: Witness Name/Signature: Date: * Pastor Gipson MD: PERFORM, SIGN, VERIFY, SIGN Event Display: Patient Education Handout Authored Date: * Event Display: Provider Clarification Note Please click on pdf link to open report * Pastor Gipson MD: MODIFY, MODIFY, PERFORM Event Display: Discharge/Transfer Note Hospital Authored Date: Patient: ??DEMARIO FORD ? Age:??67 Years?Sex:??Male?:??1955?? Patient Information Discharge Location: [facility] Primary Care Physician: Bolivar Johnson MD Admit Date/Time: 03/30/23 23:37 Discharge Disposition Discharge Disposition: Home with Home Health Discharge Diagnosis Complicated UTI (urinary tract infection) (N39.0) Dislodged barth catheter Hematuria (R31.9) Indwelling Barth catheter present (Z97.8) ?? _ Discharge Medications Acetaminophen (Tylenol 325 mg oral tablet)?2?tab(s)?650?Milligram?By Mouth?Every 6 hours?as needed?Pain apixaban (Eliquis 5 mg oral tablet)?1?tab(s)?5?Milligram?By Mouth?2 times a day Atorvastatin (atorvastatin 20 mg oral tablet)?1?tab(s)?20?Milligram?By Mouth?Daily Fluoxetine (fluoxetine 20 mg oral tablet)?2?tab(s)?40?Milligram?By Mouth?Daily Metoprolol (metoprolol 25 mg oral tablet)?12.5?Milligram?0.5?tablet?By Mouth?2 times a day?for 30?Days mirabegron (Myrbetriq 50 mg oral tablet, extended release)?1?tab(s)?50?Milligram?By Mouth?Daily?do not crush or chew Miscellaneous Rx (FUROSEMIDE 20 MG TABLET)?20?Milligram?By Mouth?2 times a day?for 20?Days?TAKE 1 TABLET BY MOUTH TWICE A DAY Multivitamin?1 tab?By Mouth?Daily Oxybutynin (oxybutynin 10 mg/24 hr oral tablet, extended release)?1?tab(s)?10?Milligram?By Mouth?Daily at bedtime?for 30?Days?TAKE 1 TABLET BY MOUTH TWICE DAILY Sulfamethoxazole/Trimethoprim (Bactrim DS 800 mg-160 mg oral tablet)?1?tab(s)?By Mouth?2 times a day?for 5?Days ? Hospital Course ??67 w/ chronic indwelling catheter since 2010 presenting with urinary dribbling, hematuria, dysuria, leaking of urine around catheter, in the setting of complicated UTI + dislodged urinary catheter. Has been removed at ED but was unable to be replaced as ED. Plan for General anesthesia??replacement by urology in the AM ?? Complicated UTI Chronic indwelling catheter??2/2 chronic neurogenic bladder (since 2010) Hematuria related to catheter trauma in a chronically catheterized patient ? -catheter was removed in ED due to leakage/malfunction, and was unable to replace it - so Urology was consulted - underwent barth catheter placement by Urology at bedside on 03/31, with 18 [place] - no further hematuria ?? - f/u with outpatient Urologist Dr. Thurston - VNA for catheter care and catheter changes, q4 weekly. -was on IV zosyn, and discharged on PO Bactrim ?Continue Oxybutinin, no longer takes BID, mirabegron nonformulary - ? Hx of Atrial fibrillation PVD with h/o left BKA h/o mildly reduced EF, EF 45-50%??on remote ??ECHO. ? - Eliquis for A/C for Afib - Continue Metoprolol 12.5mg BID - Continue home statin ??- outpatient f/u for cardiomyopathy,?? no recent EHCO ?? - also has Rt ankle contracture/ deformity , in dorsiflexion ?? h/o Ascending aortic aneurysm with rupture s/p repair, with paraplegia, ischemic left foot, s/p left BKA in 2010 -no acute issues ? Depression:- Continue fluoxetine 40mg daily ?? - Code: Full - - Diet: Cardiac diet ?Addendum- patient could not be discharged today as lack of VNA and PUSHER OPERATOR, as per??CM. ??Case management working to get??home services. This will serve as progress note for date of service 04/01/2023 ?? Objective Vital Signs?? Temperature: 97.9 DegF (04/01/23 08:15:00) Temperature Route: Oral (04/01/23 08:15:00) Pulse Rate: 77 bpm (04/01/23 08:15:00) Respiratory Rate: 17 br/min (04/01/23 08:15:00) Systolic Blood Pressure: 92 mm Hg (04/01/23 08:15:00) Diastolic Blood Pressure: 62 mm Hg (04/01/23 08:15:00) Blood pressure sites: Arm, left (04/01/23 03:42:00) Mean Arterial Pressure: 72 mm Hg (04/01/23 08:15:00) Pulse Pressure: 30 mm Hg (04/01/23 08:15:00) Oxygen Saturation: 98 % (04/01/23 08:15:00) Mode of Delivery (Oxygen): Room air (04/01/23 08:15:00) Early Warning Score: 3 (04/01/23 09:26:24) ? . Physical Exam General: ??PERRLA, NAD, Moist mucus membranes Neck: No JVD, no carotid bruit CVS: Regular S1 S2, No M/R/G Resp: CTAB, no crepitations or wheezing Abdo: Soft, NT, ND, NABS, left ileostomy, no organomegaly, no masses PIN ATTACHER: AO x 3, No focal neurological deficits. Extremities: b/l L/e 2/5,?? left BKA, Right ankle contracture- contracted in dorsiflexion, No edema, Rt DP and PT palpable ? Pending Results Add On Lab Order ordered on 03/30/2023 Add On Lab Order ordered on 03/31/2023 Hold Lavender Tube (BB) ordered on 03/30/2023 Urine Culture ordered on 03/30/2023 Follow-Up Appointments Added Follow Up ?Time Frame ?Comments Dhruv Thurston?2 to 3 weeks Bolivar Alex Harris?1 week Post Discharge Care Discharge ?Please call home health agency to resume VNA for barth catheter care and barth changes, ??04/01/23 9:58:00 EDT Discharge Prescriptions ?ePrescribed, ??04/01/23 9:58:00 EDT Home Health Face to Face *Denotes mandatory garcia ?? *I certify that this patient is under my care and that I or an allowed non- physician working with me had a face to face encounter with the patient on this date:??04/01/2023 10:06 ?? *The encounter with the patient was in whole, or in part, for the following medical condition, which is the primary diagnosis(es) for home health care:??Complicated UTI (urinary tract infection) (N39.0) Hematuria (R31.9) Indwelling Barth catheter present (Z97.8) ? *Select the indications for the discipline/s that are being arranged for this patient. Nursing (select all that apply): [_] None [X_] Medication management (reconciliation, teaching)?? [X_] Chronic disease management?? [_] Wound care and treatment?? [_] Home safety evaluation [_] Administer SQ/IM/IV medications?? [X] Cath care?? [_] Drain care?? [_] Trach or GT care?? Other _foley catheter care and exchanges Occupation Therapy (select all that apply): [_] None [_] ADL Management [_] Fall prevention training [_] Energy conservation [_] Cognitive training Other _ Physical Therapy (select all that apply): [_] None [_] Functional mobility training [_] Home exercise program to strengthen [_] Increase ROM?? [_] Falls prevention training [_] Home maintenance program for chronic disease Other _ Speech Therapy (select all that apply): [_] None [_] Swallow evaluation and training [_] Speech and language training [_] Cognitive training to process, organize, and/or recall information Other _ ? *Homebound due to (select all that apply): [_] Inability to leave home without assistance/supervision [_] Inability to ambulate without assistance [_] Pain [X_] Decreased strength and endurance [_] Unsteady gait [_] Severe SOB and fatigue [_] Impaired transfers [_] Inability to negotiate stairs [_] Limited weight bearing [_] Mental status change? *Physician Signature: _Pastor Gipson MD ?? *By signing this, I certify that I have personally evaluated the patient and agree with the findings and recommendations as documented above. ? F Results Discharge Labs BLOOD COUNT & DIFF WBC 6.7 k/mm3 ()?? 04/01/2023 00:45 RBC 4.12 m/mm3 (Low)?? 04/01/2023 00:45 Hgb 12.7 Gm/dL (Low)?? 04/01/2023 00:45 Hct 39.2 % (Low)?? 04/01/2023 00:45 MCV 95.1 femtoliters (High)?? 04/01/2023 00:45 MCH 30.8 pg ()?? 04/01/2023 00:45 MCHC 32.4 g/dL (Low)?? 04/01/2023 00:45 Platelet Count 239 k/mm3 ()?? 04/01/2023 00:45 RDW-SD 48.7 femtoliters (High)?? 04/01/2023 00:45 MPV 9.7 femtoliters ()?? 04/01/2023 00:45 Nucleated RBC (Automated) 0.0 #/100 WBC'S ()?? 04/01/2023 00:45 Abs. NRBC 0.0 k/mm3 ()?? 04/01/2023 00:45 Abs. Neut 4.6 k/mm3 ()?? 03/30/2023 16:10 Abs. Lymph 1.4 k/mm3 ()?? 03/30/2023 16:10 Abs. Alger 0.5 k/mm3 ()?? 03/30/2023 16:10 Abs. Eo 0.2 k/mm3 ()?? 03/30/2023 16:10 Abs. Baso 0.1 k/mm3 ()?? 03/30/2023 16:10 Neut % 67.9 % ()?? 03/30/2023 16:10 Lymph % 20.9 % ()?? 03/30/2023 16:10 Alger % 7.5 % ()?? 03/30/2023 16:10 Eos % 2.4 % ()?? 03/30/2023 16:10 Baso % 0.9 % ()?? 03/30/2023 16:10 Imm Gran 0.4 % ()?? 03/30/2023 16:10 Abs. Imm Gran 0.0 k/mm3 ()?? 03/30/2023 16:10 ?? CHEM GENERAL Sodium 136 mmol/L ()?? 04/01/2023 00:45 Potassium 4.4 mmol/L ()?? 04/01/2023 00:45 Chloride 103 mmol/L ()?? 04/01/2023 00:45 Bicarbonate Level 22 mmol/L ()?? 04/01/2023 00:45 Anion Gap 11 ()?? 04/01/2023 00:45 Glucose Level 95 mg/dL ()?? 04/01/2023 00:45 BUN 18 mg/dL ()?? 04/01/2023 00:45 Creatinine-Blood 0.6 mg/dL (Low)?? 04/01/2023 00:45 Estimated GFR Creatinine 103 ML/MIN/1.73 M2 ()?? 04/01/2023 00:45 Calcium 8.6 mg/dL ()?? 04/01/2023 00:45 Calcium, Ionized pH Corrected 1.22 mmol/L ()?? 03/30/2023 16:10 Magnesium 2.2 mg/dL ()?? 03/30/2023 16:10 Protein, Total 6.6 Gm/dL ()?? 03/30/2023 16:10 Albumin 3.7 Gm/dL ()?? 03/30/2023 16:10 AG Ratio 1.3 ()?? 03/30/2023 16:10 Alkaline Phosphatase 78 units/L ()?? 03/30/2023 16:10 AST (SGOT) 14 units/L ()?? 03/30/2023 16:10 ALT (SGPT) 9 units/L ()?? 03/30/2023 16:10 Bilirubin, Total 0.5 mg/dL ()?? 03/30/2023 16:10 Lactate 1.2 mmol/L ()?? 03/30/2023 16:10 ?? COAG INR 1.1 ()?? 03/30/2023 16:10 Protime (PT) 11.9 seconds (High)?? 03/30/2023 16:10 APTT 28.9 seconds ()?? 03/30/2023 16:10 ? ENDOCRINE/TUMOR MARKER PSA 0.6 ng/mL ()?? 03/30/2023 16:10 TSH 0.97 uIU/mL ()?? 03/30/2023 16:10 ?? UA/URINALYSIS Appear/Color, Urine BROWN MARKEDLY TURBID ()?? 03/30/2023 20:12 Specific Cameron, Urine 1.020 ()?? 03/30/2023 20:12 pH, Urine 8.5 (High)?? 03/30/2023 20:12 Albumin, Urine 3+ (Abnormal)?? 03/30/2023 20:12 Glucose, Urine NEGATIVE ()?? 03/30/2023 20:12 Ketones, Urine NEGATIVE ()?? 03/30/2023 20:12 Bilirubin, Urine NEGATIVE ()?? 03/30/2023 20:12 Hemoglobin, Urine 2+ (Abnormal)?? 03/30/2023 20:12 Nitrite, Urine NEGATIVE ()?? 03/30/2023 20:12 Leukocyte, Urine 3+ (Abnormal)?? 03/30/2023 20:12 Urobilinogen NORMAL mg/dL ()?? 03/30/2023 20:12 WBC's, Urine 16 /HPF (High)?? 03/30/2023 20:12 RBC's, Urine 13 /HPF (High)?? 03/30/2023 20:12 Bacteria SLIGHT HPF (Abnormal)?? 03/30/2023 20:12 Mucus SLIGHT /LPF ()?? 03/30/2023 20:12 Hold Urine Culture Testing available 48 hours from time of collection. ()?? 03/30/2023 20:12 ?? URINE OTHER Est Creatinine Clearance 105.39 mL/min ()?? 04/01/2023 01:51 ? VIROLOGY COVID-19 by RT-PCR NEGATIVE ()?? 03/30/2023 20:12 ? 25_ minutes spent on discharge Consult note * Fatou Aranda RN: PERFORM, SIGN, VERIFY Event Display: Consultation Note Authored Date: Patient: DEMARIO FORD Age: 67 years Sex: Male : 1955 Associated Diagnoses: None Author: Fatou Aranda RN Rt buttock left gluteus left gluteus History of Presenting Problem Reason for referral Wound: Description Location- Bilateral Buttocks Etiology- Healing Full Thickness pressure injuries Wound Bed- cavernous wound with significant epibole, unable to fully visualize the wed but opening of wounds does have some moisture Minda Wound- scar tissue Edges- defined, epibole Drainage- small amount of moisture noted, unable to assess wound beds Odor- none No fluctuance or induration Goals- offloading, filling of deadspace, antimicrobial activity with Vashe and Aquacel . Wound: Description Location- R Ischium Etiology- Stage 3 Pressure Injury Wound Bed- Full thickness skin loss with exposed moist red tissue and small amount of yellow slough Minda Wound- scar tissue, intact Edges- defined Drainage- appears moist Odor- none No fluctuance or induration Goals- offloading, protection from friction and moisture, Triad cream for enhanced autolytic debridement of slough . Wound RN consult entered to assess buttocks wounds and make topical recommendations. Of note Demario has a PMH of paraparesis and pressure injuries. I spoke with Dr. Gipson regarding the wounds and he was able to upload photos. Recommendations shared with Dr. Gipson prior to discharge today. Recommendations: 1.) Bilateral Ischium: Irrigate with Vashe. Allow to dry/Pat dry. Cut a piece of Aquacel in a spiral shape to form one long piece. Gently pack into the wound bed leaving a tail for easy retrieval. Cover with Mepilex 4x4 dressings. May cover with tegarderms to protect from moisture. Change every other day. 2.) R Ischium: Cleanse with pH balanced cleanser. Pat dry. Apply Triad dressing thinly to open areas. Reapply thin layer as needed with incontinence care. 3.) Continue use of specialty bed/low air loss mattress 4.) Turn and reposition every 2 hours and PRN 5.) Continue incontinence care as well as moisture management 6.) Continue to offload bony prominences 7.) Float heels 8.) Continue to provide optimal nutritional support 9.) Provide Gaymar cushion to chair when patient OOB Please reconsult wound care RNs for deterioration in wound/skin status Plan Time spent 31-45 minutes * Jalyn SINGH, Rakesh Nicole: PERFORM Event Display: Consultation Note Authored Date: [id number] Patient: ??DEMARIO FORD ? Age:??67 Years?Sex:??Male?:??1955?? Chief Complaint/Reason for Consultation Displaced Barth History of Present Illness LOS: 1 PCP: Bolivar Johnson MD Consulting Physician: Nargis Turner MD Attending Physician: Talon Tamez MD Reason For Consult: Unable to place barth ?? 67 year old male with colostomy, LAKA, afib (eliquis), Neurogenic bladder w/??chronic indwellingcatheter presented to the ED with a chief complaint of hematuria, and leaking around his catheter. Urology was consulted for catheter replacement. He is a patient of Dr. Jernigan. His barth catheter waslast replaced by VNA??on 03/23/23.??His barth catheter was removed and not replaced. Ct scan showed possible cystitis with no pyelo/obstruction, and a misplaced barth. He was somewhat tachycardic though stable. No leukocystosis, or luciana, with a somewhat positive UA. Review of Systems Constitutional:??No weight loss, fever, chills, weakness or fatigue. Respiratory:??No shortness of breath, cough or sputum production. Cardiovascular:??No chest pain, chest pressure or chest discomfort. No palpitations or pedal edema. Gastrointestinal:??No anorexia, nausea, vomiting or diarrhea. No abdominal pain or blood in stool. Genitourinary: hematuria/catheter leakage.??No burning micturition, discharge,??urinary frequency or incontinence. Neurologic:??No headache, dizziness, syncope, bladder sensation loss. Objective ? Vital Signs?? Temperature: 97.8 DegF (03/31/23 07:38:00) Temperature Route: Oral (03/31/23 07:38:00) Pulse Rate: 72 bpm (03/31/23 10:34:00) Respiratory Rate: 20 br/min (03/31/23 10:34:00) Systolic Blood Pressure: 124 mm Hg (03/31/23 10:34:00) Diastolic Blood Pressure: 83 mm Hg (03/31/23 10:34:00) Blood pressure sites: Arm, left (03/31/23 10:34:00) Mean Arterial Pressure: 88 mm Hg (03/31/23 07:38:00) Pulse Pressure: 41 mm Hg (03/31/23 10:34:00) Oxygen Saturation: 98 % (03/31/23 10:34:00) Mode of Delivery (Oxygen): Room air (03/31/23 10:34:00) Early Warning Score: 3 (03/31/23 10:39:52) ? Pain Scores 1 - 10 Pain Scale Score: 0 (19:00) Pain relief acceptable: Yes (20:45) ? Intake/Output? No Data Available ?? Basic ADLs Ambulatory devices needed: Wheelchair (03/30/23) ? Physical Exam Constitutional: Alert, in no distress. Mental Status: Oriented to person, place and time. Respiratory: Equal and unlabored respiratory effort. Gastrointestinal: ostomy bag in place.??Abdomen soft, non-tender, non-distended. Normal bowel sounds. No pulsatile mass. No hepatosplenomegaly. Genitourinary: No costovertebral angle tenderness. severely eroded penis with deep hypospadias. Assessment/Plan Complicated UTI (urinary tract infection) (N39.0):?? Hematuria (R31.9):?? Indwelling Barth catheter present (Z97.8):??67 year old male with colostomy, LAKA, afib (eliquis), Neurogenic bladder w/ chronic indwelling catheter seen in consult for hematuria, catheter leakage secondary to displaced barth. CT scan shows catheter not in bladder. ER team attempted to replace but was unsuccessful. An 18 fr coude catheter was placed with no difficulty draining CYU. He is being treated for a UTI. Urology will sign off. ?? The patient was informed and consented to catheter insertion. The external scrotum was examined.??The patient was draped and placed in the supine position. External Scrotum was cleaned and prepped with betadine. A 18fr coude??was lubricated, and advanced through the urethra until there was sufficient bladder return observed. The balloon was inflated with??10ccs of saline and secured to the patients Left/Right thigh. The catheter was attached to the collection bag, which drained CYU. The patienttolerated the procedure well and was in no distress s/p insertion. ?? Recommendations: - Continue barth catheter - abx per primary team - can follow with his primary urologist Dr. Jernigan ?? This patient was seen and examined with attending physician Dr. Tamez present. In total, chart review, physical exam, procedure, discussion, and planning took approximately 60 minutes. ?? Rakesh Gunderson PA-C Urology [facility] Available on [employer] [facility] Histories Allergies Allergies ?(Active and Proposed Allergies Only) NKA? (Severity: Unknown severity, Onset: Unknown) ? Past Medical History/Problem List Active Problems??(7) Chest pain on respiration Depressive disorder Gangrene Hypotensive episode Iliac dissection PVD - Peripheral vascular disease Right leg pain ? Past Surgical History No surgery history documented. ? Social History Alcohol Details:??Use: Never. Substance Abuse Details:??Use: Never. Tobacco Details:??Current every day smoker, Tobacco user in household: No. ??Other: <1/4 ppd cigarettes per day. ? Family History No family history recorded. ? Medications Home Medications Acetaminophen (Tylenol 325 mg oral tablet)?2?tab(s)?650?Milligram?By Mouth?Every 6 hours?as needed?Pain apixaban (Eliquis 5 mg oral tablet)?1?tab(s)?5?Milligram?By Mouth?2 times a day Atorvastatin (atorvastatin 20 mg oral tablet)?1?tab(s)?20?Milligram?By Mouth?Daily Fluoxetine (fluoxetine 20 mg oral tablet)?2?tab(s)?40?Milligram?By Mouth?Daily Metoprolol (metoprolol 25 mg oral tablet)?12.5?Milligram?0.5?tablet?By Mouth?2 times a day?for 30?Days mirabegron (Myrbetriq 50 mg oral tablet, extended release)?1?tab(s)?50?Milligram?By Mouth?Daily?do not crush or chew Miscellaneous Rx (FUROSEMIDE 20 MG TABLET)?20?Milligram?By Mouth?2 times a day?for 20?Days?TAKE 1 TABLET BY MOUTH TWICE A DAY Multivitamin?1 tab?By Mouth?Daily Oxybutynin (oxybutynin 10 mg/24 hr oral tablet, extended release)?1?tab(s)?10?Milligram?By Mouth?Daily at bedtime?for 30?Days?TAKE 1 TABLET BY MOUTH TWICE DAILY ? Results Recent Labs BLOOD COUNT & DIFF WBC 6.8 k/mm3 ()?? 03/30/2023 16:10 RBC 4.28 m/mm3 (Low)?? 03/30/2023 16:10 Hgb 13.2 Gm/dL (Low)?? 03/30/2023 16:10 Hct 39.7 % (Low)?? 03/30/2023 16:10 MCV 92.8 femtoliters ()?? 03/30/2023 16:10 MCH 30.8 pg ()?? 03/30/2023 16:10 MCHC 33.2 g/dL ()?? 03/30/2023 16:10 Platelet Count 270 k/mm3 ()?? 03/30/2023 16:10 RDW-SD 47.3 femtoliters (High)?? 03/30/2023 16:10 MPV 9.6 femtoliters ()?? 03/30/2023 16:10 Nucleated RBC (Automated) 0.0 #/100 WBC'S ()?? 03/30/2023 16:10 Abs. NRBC 0.0 k/mm3 ()?? 03/30/2023 16:10 Abs. Neut 4.6 k/mm3 ()?? 03/30/2023 16:10 Abs. Lymph 1.4 k/mm3 ()?? 03/30/2023 16:10 Abs. [place] 0.5 k/mm3 ()?? 03/30/2023 16:10 Abs. Eo 0.2 k/mm3 ()?? 03/30/2023 16:10 Abs. Baso 0.1 k/mm3 ()?? 03/30/2023 16:10 Neut % 67.9 % ()?? 03/30/2023 16:10 Lymph % 20.9 % ()?? 03/30/2023 16:10 [place] % 7.5 % ()?? 03/30/2023 16:10 Eos % 2.4 % ()?? 03/30/2023 16:10 Baso % 0.9 % ()?? 03/30/2023 16:10 Imm Gran 0.4 % ()?? 03/30/2023 16:10 Abs. Imm Gran 0.0 k/mm3 ()?? 03/30/2023 16:10 ?? CHEM GENERAL Sodium 134 mmol/L ()?? 03/30/2023 16:10 Potassium 4.2 mmol/L ()?? 03/30/2023 16:10 Chloride 101 mmol/L ()?? 03/30/2023 16:10 Bicarbonate Level 22 mmol/L ()?? 03/30/2023 16:10 Anion Gap 11 ()?? 03/30/2023 16:10 Glucose Level 75 mg/dL ()?? 03/30/2023 16:10 BUN 18 mg/dL ()?? 03/30/2023 16:10 Creatinine-Blood 0.5 mg/dL (Low)?? 03/30/2023 16:10 Estimated GFR Creatinine 108 ML/MIN/1.73 M2 ()?? 03/30/2023 16:10 Calcium 8.7 mg/dL ()?? 03/30/2023 16:10 Calcium, Ionized pH Corrected 1.22 mmol/L ()?? 03/30/2023 16:10 Magnesium 2.2 mg/dL ()?? 03/30/2023 16:10 Protein, Total 6.6 Gm/dL ()?? 03/30/2023 16:10 Albumin 3.7 Gm/dL ()?? 03/30/2023 16:10 AG Ratio 1.3 ()?? 03/30/2023 16:10 Alkaline Phosphatase 78 units/L ()?? 03/30/2023 16:10 AST (SGOT) 14 units/L ()?? 03/30/2023 16:10 ALT (SGPT) 9 units/L ()?? 03/30/2023 16:10 Bilirubin, Total 0.5 mg/dL ()?? 03/30/2023 16:10 Lactate 1.2 mmol/L ()?? 03/30/2023 16:10 ?? COAG INR 1.1 ()?? 03/30/2023 16:10 Protime (PT) 11.9 seconds (High)?? 03/30/2023 16:10 APTT 28.9 seconds ()?? 03/30/2023 16:10 ?? ENDOCRINE/TUMOR MARKER TSH 0.97 uIU/mL ()?? 03/30/2023 16:10 ?? UA/URINALYSIS Appear/Color, Urine BROWN MARKEDLY TURBID ()?? 03/30/2023 20:12 Specific Cameron, Urine 1.020 ()?? 03/30/2023 20:12 pH, Urine 8.5 (High)?? 03/30/2023 20:12 Albumin, Urine 3+ (Abnormal)?? 03/30/2023 20:12 Glucose, Urine NEGATIVE ()?? 03/30/2023 20:12 Ketones, Urine NEGATIVE ()?? 03/30/2023 20:12 Bilirubin, Urine NEGATIVE ()?? 03/30/2023 20:12 Hemoglobin, Urine 2+ (Abnormal)?? 03/30/2023 20:12 Nitrite, Urine NEGATIVE ()?? 03/30/2023 20:12 Leukocyte, Urine 3+ (Abnormal)?? 03/30/2023 20:12 Urobilinogen NORMAL mg/dL ()?? 03/30/2023 20:12 WBC's, Urine 16 /HPF (High)?? 03/30/2023 20:12 RBC's, Urine 13 /HPF (High)?? 03/30/2023 20:12 Bacteria SLIGHT HPF (Abnormal)?? 03/30/2023 20:12 Mucus SLIGHT /LPF ()?? 03/30/2023 20:12 Hold Urine Culture Testing available 48 hours from time of collection. ()?? 03/30/2023 20:12 ?? VIROLOGY COVID-19 by RT-PCR NEGATIVE ()?? 03/30/2023 20:12 ? Imaging(s) ?CT Abdomen and Pelvis W/O Contrast ?? 03/30/2023 22:15??by Nancy Clifton MD ?No evidence of nephrolithiasis or obstructive uropathy. Possible cystitis. Recommend correlation with patient's urinalysis. The balloon of the Barth catheter appears to be outside of the bladder and within the urethra versus vagina. Recommend repositioning the Barth catheter and its balloon ? Patient Care team information Care Team Personnel Name: Faith Strange RN Position: [facility] RN Member Role: Primary Care Nurse Name: Bolivar Johnson MD Position: [facility] Outreach Member Role: PCP Address: Address: [address] [place] [address] Name: Tran Sarmiento RN Position: [facility] AMB Nurse Member Role: Primary Care Nurse Name: Carissa Duggan RN Position: [facility] RN Member Role: Primary Care Nurse Name: Heidy Sousa RN Position: [facility] RN Member Role: Primary Care Nurse Name: Padmini Bah RN Position: [facility] RN Member Role: Primary Care Nurse Name: Brianne Martin RN Position: [facility] RN Member Role: Primary Care Nurse Name: Levy Jin RN Position: [facility] RN Member Role: Primary Care Nurse Name: Gucci Freed Jr Position: [facility] ED RN W/OE and Tasks Member Role: Primary Care Nurse Name: Kelsey Connolly RN Position: [facility] RN Member Role: Primary Care Nurse Name: Ariel Gomez RN Position: [facility] ED RN W/OE and Tasks Member Role: Primary Care Nurse Name: Zohra Martinez Position: [facility] RN Member Role: Primary Care Nurse Name: Janelle Chowdhury RN Position: [facility] RN Member Role: Primary Care Nurse Name: Abi DUCKWORTH Attending Position: [facility] ED Medicine MD Name: Rose Hussein Position: [facility] ED TA ERNIE Name: Cynthia Bell RN Position: [facility] ED RN W/OE and Tasks Member Role: Patient Care Provider Care Team Related Persons Name: MARE MACIAS Address: [address] [address] Name: FAWAD SANCHEZ Address: [place] [address]
--- NOTE | 2023-05-06 11:26 | PC.NURSE ---
Patient with colostomy, bag with semi formed brown stool. Patient incont of urine, no trauma noted to penis. Penis with split, patient stating slit is old and was caused by catheters tugging.
--- NOTE | 2023-05-06 12:39 | ED_ITS ---
HPI - Male Genitourinary General Chief complaint: Urogenital-Male Stated complaint: CATHETER FALLEN OUT PER EMS Time Seen by Provider: 05/06/23 12:38 Source: patient, EMS, RN notes reviewed and old records reviewed Mode of arrival: EMS History of Present Illness HPI Narrative: 67-year-old male with a past medical history of paraplegia, MDD, HTN, chronic barth catheter for neurogenic bladder, chronic leakage around barth, AFib on Eliquis, colostomy, presenting to the ED via EMS complaining that his barth catheter fell out this morning and needs to be replaced. Patient requesting suprapubic catheter which has been previously discussed with Urology, follows with Dr Thurston & Dr. Harmon. Patient unclear how Barth catheter fell out. Re ports mild discomfort area. Denies abdominal pain, nausea/vomiting, fever, dysuria. Related Data Home Medications Medication Instructions Recorded Confirmed apixaban 5 mg tablet (Eliquis) 1 tab PO BID 04/07/21 04/14/23 atorvastatin 20 mg tablet 1 tab PO DAILY 04/07/21 04/14/23 cholestyramine-aspartame 4 gram 1 packet PO BID 04/07/21 04/14/23 oral powder for susp in a packet (Cholestyramine Light) furosemide 20 mg tablet 1 tab PO BID 04/07/21 04/14/23 mirtazapine 15 mg tablet 1 tab PO BEDTIME 04/07/21 04/14/23 quetiapine 50 mg tablet 1 tab PO BID 04/07/21 04/14/23 fluoxetine 20 mg capsule 1 cap PO QAM 07/02/21 04/14/23 gabapentin 800 mg tablet 1 tab PO TID 07/02/21 04/14/23 lisinopril 5 mg tablet 1 tab PO DAILY 07/02/21 04/14/23 metoprolol tartrate 25 mg tablet 0.5 tab PO BID 07/02/21 04/14/23 multivitamin 1 tab PO DAILY 07/02/21 04/14/23 ipratropium 20 mcg-albuterol 100 1 puff inhalation QID 07/03/21 04/14/23 mcg/actuation mist for inhalation (Combivent Respimat) Previous Rx's Medication Instructions Recorded diltiazem HCl 120 mg 120 mg PO DAILY #30 caps 07/08/21 capsule,extended release 24 hr (Cardizem CD) nitrofurantoin See Rx Instructions PO .COMPLEX 01/25/23 monohydrate/macrocrystals 100 mg #30 caps capsule (Macrobid) sulfamethoxazole 800 1 tab PO BID UTI 7 days #14 tabs 01/25/23 mg-trimethoprim 160 mg tablet (Bactrim DS) oxybutynin chloride 10 mg 10 mg PO BEDTIME 30 days #30 tabs 02/10/23 tablet,extended release 24 hr vibegron 75 mg tablet (Gemtesa) 75 mg PO DAILY #90 tabs 04/14/23 cefdinir 300 mg capsule 300 mg PO BID 7 days #14 caps 05/06/23 Allergies Allergy/AdvReac Type Severity Reaction Status Date / Time No Known Allergies Allergy Verified 08/15/22 13:39 [No Known Allergies*] Review of Systems Review of Systems: Constitutional: No Fever, No Chills, No Fatigue, No Malaise ENT/Mouth:No Ear Pain, No Nasal Congestion, No sore throat, No Rhinorrhea, No Swallowing Difficulty Eyes: No Eye Pain, No Swelling, No Redness, No Vision Changes Cardiovascular: No Chest Pain, No SOB Respiratory: No Cough, No Sputum, No Dyspnea Gastrointestinal: No Nausea, No Vomiting, No Diarrhea, No Constipation, No Abdominal pain Genitourinary: No Dysuria, No Urinary Frequency, No Hematuria, +chronic retention, No Flank Pain Musculoskeletal: No joint pain, No Myalgias, No Joint Swelling Skin: No Skin Lesions, No rash Neuro: No Weakness, No Headache Yes all other systems are reviewed and are negative Constitutional: Constitutional: Reports as per [facility] Past Medical History Attestation statement: The following information was validated with the patient. Source: old records reviewed Medical History Acute osteomyelitis Atrial fibrillation Colostomy complication COVID Embolism Encounter for surgical aftercare following surgery of digestive system Essential hypertension Major depressive disorder Muscle weakness Paraplegia Surgical History Hx of [facility] Social History Social History Household Members: Caregiver Household Members Other:: [employer] lives above [facility] apartment Housing: Apartment Housing Other:: Pt comes from [facility] Do you presently have visiting nurse or other home services: No Alcohol intake: former Patient Tobacco Use Status: Never used Tobacco Smoked in Last 30 Days: No Use of substances other than those prescribed or required for medical reasons: No Advance Directives: Yes Advance Directives on File: Yes Advance Directives Date on File: 04/08/21 service: No Current occupational status: disabled Physical Exam Vital Signs: Vital Signs: Last Vital Signs Temp 97.8 F 05/06/23 11:22 Pulse 92 05/06/23 16:00 Resp 16 05/06/23 16:00 BP 105/60 05/06/23 16:00 Pulse Ox 96 05/06/23 16:00 O2 Del Method Room Air 05/06/23 16:00 BMI result Body Mass Index 29.9 Const: General: cooperative, no acute distress, alert and awake Orientation/consciousness: patient oriented x3 Limitations: no limitations HEENT: Head: Yes normal to inspection and Yes atraumatic Ears: hearing grossly normal bilaterally General nose exam: Normal external nose present Face and sinus: Yes normal facial exam Eyes: General: appearance normal, both eyes and all related structures EOM: EOMs intact bilaterally Neck: Neck: Yes normal visual inspection and Yes no meningeal signs Resp: Effort & Inspection: normal respiratory effort and no respiratory distress Cardio: Rate: regular rate Heart sounds: S1 normal heart sound present and S2 normal heart sound present GI: Other: Colostomy noted to left lower quadrant Inspection: Yes normal to inspection Palpation (GI): Soft to palpation, nontender, no guarding and not rigid : Other: Chronically split penis. No catheter in place. No evidence of trauma or bleeding Skin: Rashes: no rashes Wounds: no wounds Neuro: General: patient oriented x3, tone normal and no meningeal signs C ranial nerves: Yes CN's II-XII intact bilaterally Extrem: General: Yes normal to inspection Course Course Course Narrative: -consulted Urology, Dr. Harmon who recommended attempting 1x for catheter placement with coude, if unsuccessful will perform watchful waiting/continuous bladder scans for potential retention > 20 Citizen [place] coude successfully placed, Dr. Harmon aware recommended g of Rocephin prophylactically -no leukocytosis. BUN mildly elevated to 20, labs otherwise reassuring. -1500--ED care transfer to [facility] pending UA and anticipated dispo home 1623 - Patient's UA appears infected. Patient prescribed oral antibiotics. Srinivas rascon cleared for discharge. Medications Administered Discontinued Medications Generic Name Dose Route Start Last Admin Trade Name Trinidad PRN Reason Stop Dose Admin Ceftriaxone Sodium 1 gm/ 50 mls @ 100 mls/hr 05/06/23 14:26 05/06/23 15:35 Sodium Chloride IV 05/06/23 14:55 Infused ONCE ONE Infusion Lidocaine HCl 10 ml 05/06/23 13:20 05/06/23 13:29 Lidocaine Hcl 2 % Urojet 10 Ml Jel.Pf.Windy TOPICAL 05/06/23 13:21 10 ml ONCE ONE Administration Medical Decision Making Medical Decision Making [facility] Narrative: 67-year-old male with a past medical history of paraplegia, MDD, HTN, chronic barth catheter for neurogenic bladder, chronic leakage around barth, AFib on Eliquis, colostomy, presenting to the ED via EMS complaining that his barth catheter fell out this morning and needs to be replaced. On exam vital signs stable, NAD, nontoxic appearing, physical exam as noted above. Chronically split penis without catheter in place at present. Bladder scan with 102ml. No evidence of trauma. Rule out UTI/renal dysfunction Per chart review patient chronically difficult catheter placement requiring Urology to place. Plan: Labs, UA, consult Urology Please refer to course for remaining clinical decision making, interpretation of labs/imaging results, and discussions with consultants and/or family members. Differential Diagnosis Differential Diagnoses: The differential diagnosis associated with the presentation includes As above Admission/Observation Consideration of admission/observation: Escalation of care including admission/observation considered Consult Healthcare Provider Management of the patient was discussed with: Advance Agent (Urology, Dr. Harmon) Lab Data [facility] Lab Attestation statement: I reviewed the patient's lab results. 05/06/23 13:01 05/06/23 13:01 Labs: Lab Results 05/06/23 05/06/23 05/06/23 Range/Units 13: 13:01 15:55 WBC 7.8 (4.8-10.8) X10*3/uL RBC 4.29 L (4.60-5.80) X10*6/uL Hgb 13.4 L (14.0-18.0) g/dl Hct 41.2 L (42.0-52.0) % MCV 96.0 (80.0-98.0) fL MCH 31.2 (27.0-33.0) pg MCHC 32.5 (31.0-36.0) g/dl RDW 14.0 (11.0-16.0) % Plt Count 210 (160-400) X10*3/uL MPV 10.9 (9.4-12.4) fL Immature Gran % (Auto) 0.3 (0.0-0.4) % Neut % (Auto) 75.8 H (45-73) % Lymph % (Auto) 13.9 L (20-40) % [place] % (Auto) 6.6 (2-11) % Eos % (Auto) 2.6 (0-4) % Baso % (Auto) 0.8 (0-2) % Lymph # (Auto) 1.1 L (1.2-4.9) X10*3/uL [place] # (Auto) 0.5 (0.1-1.2) X10*3/uL Eos # (Auto) 0.2 (0.0-0.4) X10*3/uL Baso # (Auto) 0.1 (0.0-0.2) X10*3/uL Abs Immat Gran (auto) 0.02 (0.00-0.03) X10*3/uL Absolute Neuts (auto) 5.9 (2.0-8.3) x10*3/uL Absolute Nucleated RBC 0.000 (0.0-0.012) X10*3/uL Nucleated RBC % (auto) 0.0 (0.0-0.2) /100WBC Smear Tech's Comments VERIFIED Sodium 140 (135-145) mmol/L Potassium 4.8 (3.3-5.1) mmol/L Chloride 109 H (96-108) mmol/L Carbon Dioxide 23 (22-29) mmol/L Anion Gap 13 (12-20) BUN 20 H (9-16) mg/dL Creatinine 0.63 (0.5-1.4) mg/dL Estim Creat Clear Calc 112.4 Estimated GFR > 60 Random Glucose 81 (60-115) mg/dL Calcium 8.7 (8.4-10.2) mg/dL Urine Color Yellow Urine Appearance Turbid Urine pH 8.0 (5.0-9.0) Ur Specific [place] 1.015 (1.005-1.025) Urine Protein 100 (2+) H (Neg-Trace) mg/dL Urine Glucose (UA) Negative (Negative) mg/dL Urine Ketones Negative (Negative) mg/dL Urine Blood Trace H (Negative) Urine Nitrite Positive H (Negative) Ur Leukocyte Esterase Large (3+) H (Negative) Urine RBC 6-10 H (0-2) /HPF Urine WBC >50 H (0-5) /HPF Ur Squamous Epith Cells 0-2 (0-2) /HPF Urine Bacteria 4+ (None Seen) Hyaline Casts 0-2 (0-2) /LPF Independent Historian Clinical information obtained from an independent historian. History obtained from or confirmed by: EMS External Record Review External record reviewed: Inpatient record, Office record, Outpatient record, Prior outpatient labs, Prior outpatient radiology, Primary care record and Outsi de ED record Tests considered The following testing was considered but not selected: As above Chronic Conditions Patient?s care impacted by: Other (AFib) Discharge Plan Discharge Clinical Impression: Barth catheter in place, Urinary tract infection Patient Disposition: Still a Patient Instructions: Urinary Tract Infection in Men (DC), Barth Catheter Placement and Care (ED) Additional Instructions: Your catheter was replaced Please follow-up with Urology If symptoms persist or worsen return to the ED Prescriptions: New cefdinir 300 mg capsule 300 mg PO BID 7 Days Qty: 14 0RF No Action sulfamethoxazole-trimethoprim [Bactrim DS] 800-160 mg tablet 1 tab PO BID 7 Days Qty: 14 0RF nitrofurantoin monohyd/m-cryst [Macrobid] 100 mg capsule See Rx Instructions PO .COMPLEX Qty: 30 0RF Rx Instructions: 1 tab to be taken on days of catheter change orally; must administer with a meal/food oxybutynin chloride 10 mg tablet extended release 24hr 10 mg PO BEDTIME 30 Days Qty: 30 1RF atorvastatin 20 mg tablet 1 tab PO DAILY furosemide 20 mg tablet 1 tab PO BID mirtazapine 15 mg tablet 1 tab PO BEDTIME cholestyramine-aspartame [Cholestyramine Light] 4 gram powder in packet 1 packet PO BID quetiapine 50 mg tablet 1 tab PO BID Eliquis 5 mg tablet 1 tab PO BID gabapentin 800 mg tablet 1 tab PO TID lisinopril 5 mg tablet 1 tab PO DAILY fluoxetine 20 mg capsule 1 cap PO QAM metoprolol tartrate 25 mg tablet 0.5 tab PO BID multivitamin Tablet 1 tab PO DAILY Combivent Respimat 20-100 mcg/actuation mist 1 puff inhalation QID diltiazem HCl [Cardizem CD] 120 mg Capsule,Extended Release 24hr 120 mg PO DAILY Qty: 30 0RF Protocol: Hold for SBP/HR < HOLD for SBP < : 90 HOLD for HR < : 60 Gemtesa 75 mg tablet 75 mg PO DAILY Qty: 90 0RF Rx Instructions: gemtesa to replace myrbetriq 50mg Referrals: [facility] [Provider Group] Print Language: Irish
--- NOTE | 2023-05-06 12:56 | PC.NURSE ---
Bladder scanned for 102mls, incont of small amount of urine
[2023-05-06 13:08] LABS: Basophils Absolute Auto 0.1 X10*3/uL (0.0-0.2); Basophils Percent Auto 0.8 % (0-2); Eosinophils Absolute Auto 0.2 X10*3/uL (0.0-0.4); Eosinophils Percent Auto 2.6 % (0-4); Hematocrit 41.2 % (42.0-52.0); Hemoglobin 13.4 g/dl (14.0-18.0); Imm Gran Abs Auto 0.02 X10*3/uL (0.00-0.03); Imm Gran Pct Auto 0.3 % (0.0-0.4); Lymphocytes Absolute Auto 1.1 X10*3/uL (1.2-4.9); Lymphocytes Percent Auto 13.9 % (20-40); MANUAL DIFF FLAG SCAN; Mean Corpuscular HGB Conc 32.5 g/dl (31.0-36.0); Mean Corpuscular Hemoglobin 31.2 pg (27.0-33.0); Mean Platelet Volume 10.9 fL (9.4-12.4); Monocytes Absolute Auto 0.5 X10*3/uL (0.1-1.2); Monocytes Percent Auto 6.6 % (2-11); Neutrophils Absolute Auto 5.9 x10*3/uL (2.0-8.3); Neutrophils Percent Auto 75.8 % (45-73); PLT CLUMP 1; Red Blood Count 4.29 X10*6/uL (4.60-5.80); SCAN SMEAR FLAG 1
[2023-05-06 13:09] LABS: White Blood Count 7.8 X10*3/uL (4.8-10.8)
[2023-05-06] MEDS: Lidocaine HCl 2 % Urojet 10 ML JEL.PF.APP TOPICAL (13:29)
--- NOTE | 2023-05-06 13:29 | PC.NURSE ---
20fr 30cc barth inserted. clear yellow urine draining. Patient tolerated well
[2023-05-06 13:35] LABS: Platelet Count 210 X10*3/uL (160-400); SLIDE REVIEW VERIFIED
[2023-05-06 13:41] VITALS: BP 139/82; RESP 14; O2SAT 96
[2023-05-06 13:54] LABS: Anion Gap 13 (12-20); Blood Urea Nitrogen 20 mg/dL (9-16); Calcium 8.7 mg/dL (8.4-10.2); Carbon Dioxide 23 mmol/L (22-29); Chloride 109 mmol/L (96-108); Creatinine Clr Calc Pharmacy 112.4; Estimated Glomerular Filt Rate > 60; Glucose Random 81 mg/dL (60-115); Potassium 4.8 mmol/L (3.3-5.1); Sodium 140 mmol/L (135-145)
[2023-05-06] MEDS: cefTRIAXone sodium 1 GM in 0.9 % Sodium Chloride 50 ML IV (14:59)
[2023-05-06 16:00] VITALS: BP 105/60; PULSE 92; RESP 16; O2SAT 96
[2023-05-06 16:04] LABS: Appearance Urine Turbid; Color Urine Yellow; Glucose Urine UA Negative (Negative); Leukocyte Esterase Urine Large (3+) (Negative); Nitrite Urine Positive (Negative); Specific Gravity - Urine 1.015 (1.005-1.025); UMIC TRIGGER UACC YES; Urine Blood Trace (Negative); Urine Ketones Negative (Negative); Urine Protein 100 (2+) mg/dL (Neg-Trace)
[2023-05-06 16:09] LABS: Bacteria Urine 4+ (None Seen); Hyaline Casts Urine 0-2 /LPF (0-2); Squamous Epithelial Cell Urine 0-2 /HPF (0-2); UACC Culture Trigger YES; WBC Urine >50 /HPF (0-5)
[2023-05-06] MEDS: oxyCODONE HCl Immed Release 5 MG TABLET 10 MG PO (16:26)
--- NOTE | 2023-05-06 16:27 | PC.NURSE ---
Patient medicated for complaints of antonio at insertion site of cath. [place] draining clear yellow urine .
[2023-05-06] MEDS: Acetaminophen 325 MG TABLET 650 MG PO (17:26)
--- NOTE | 2023-05-06 17:56 | PC.NURSE ---
Patient medicated with prn tylenol, bladder scanned for 6mls, continues to state cath hurts at insertion site, pa aware and into room to speak with patient. d/c postponed until after tylenol was given.
--- NOTE | 2023-05-06 18:52 | PC.NURSE ---
Patient transported home by [facility], reports pain has improved
== END 2023-05-06 18:52 | disposition still patient (30) ==
PROVIDERS: Physician Assistant; Emergency Provider Emergency Medicine Emergency Medical Services; PCP Internal Medicine
DX: N39.0 Urinary tract infection, site not specified (principal); Z46.6 Encounter for fitting and adjustment of urinary device; G82.20 Paraplegia, unspecified; N31.9 Neuromuscular dysfunction of bladder, unspecified; I10 Essential (primary) hypertension; I48.91 Unspecified atrial fibrillation; Z79.01 Long term (current) use of anticoagulants; Z79.899 Other long term (current) drug therapy
CPT/HCPCS: 36415; 51702; 80048; 81001; 81003; 85025; 87086; 87088; 87186; 96365; 99284; 99285; J0696

== ENCOUNTER 2023-07-24 11:24 | Inpatient (IN) | payer MEDICARE, MEDICAID, SELFPAY ==
--- NOTE | 2023-07-24 | ECG_ITS ---
Test Reason : GENERAL MEDICAL Blood Pressure : / mmHG Vent. Rate : 069 BPM Atrial Rate : 000 BPM P-R Int : 000 ms QRS Dur : 116 ms QT Int : 432 ms P-R-T Axes : 000 -73 086 degrees QTc Int : 462 ms Atrial fibrillation Left anterior fascicular block Nonspecific ST abnormality Lateral leads Possible Lateral infarct , age undetermined Abnormal ECG When compared with ECG of 03-JUL-2021 13:30, QRS duration has increased Borderline criteria for Lateral infarct are now Present Referred By: Patricia Frias Electronically Signed By:JOHNNA GUEVARA MD
--- NOTE | ~2023-07-24 | CT_ITS ---
EXAMINATION: CT GI bleed abdomen and pelvis with and without IV contrast CLINICAL INFORMATION: GI bleed. Bright red blood in colostomy bag COMPARISON: Previous CT of the abdomen and pelvis March 2021 TECHNIQUE: Axial images through the abdomen and pelvis without and with IV contrast. Patient received 80 mL Omnipaque 350 IV contrast. Sagittal and coronal reconstructions on the technologist workstation were performed. This CT examination was performed using dose optimization techniques as appropriate, variously including the following: *Automated exposure control *Adjustment of mA and/or kV according to patient size (this includes techniques or standardized protocols for targeted exams where dose is matched to indication/reason for exam; i.e. extremities or head) *Use of iterative reconstruction technique DLP 194 4 mgy/cm. FINDINGS: There is high attenuation presumably representing oral contrast distal colon and rectum on noncontrast enhanced images. There is a left lower quadrant renal descending colon colostomy. There is a parastomal hernia containing small bowel. No definite evidence of active GI bleeding is seen. There is diverticulosis of the colon. There is mild wall thickening of the left and stranding of the adjacent fat of the distal colon suggestive of mild colitis or diverticulitis. There is some mucosal enhancement seen in this region for example coronal reconstructed image 52 series 12, sagittal 7 and axial image 58 and 59 series 9 and this may be a site of bleeding. Small and large bowel is otherwise. The appendix is normal. There is apparent wall thickening of the proximal stomach. This may be due to underdistention. There is a dissection descending thoracic and upper abdominal aorta. This does not appear acute. Ascending thoracic aorta is dilated measuring 4.2 x 5 cm. The celiac axis and SMA are patent. Patent BIANCA is not seen. The upper abdominal aorta is upper normal in size measuring 3 m. No abdominal aortic aneurysm is seen. The common internal and external iliac arteries are slightly dilated or ectatic and are tortuous but patent. There is mild dilatation of the bilateral common iliac arteries measuring 1.9 and 2 cm. The common femoral arteries are patent. The left distal femoral artery is occluded. The right femoral bifurcation is patent. The heart is enlarged. The lung bases are clear. The liver is normal in attenuation. The gallbladder has been removed. There is mild intrahepatic biliary duct dilatation. No extrahepatic biliary duct dilatation or focal liver lesion. Pancreas is normal. The spleen is normal. The adrenal glands are normal. There are small bilateral renal cysts. No imaging follow-up recommended. Kidneys are otherwise normal. There is a Napier catheter in the bladder. The bladder wall appears thickened and the bladder is empty. The prostate gland does not appear enlarged. Small umbilical hernia containing fat. No ascites or adenopathy. Osteopenia. T12 and L2 vertebral body compression fractures. Degenerative changes of the spine and hip joints. Skin thickening and increased soft tissue overlying the right ischial tuberosity. Question slight resorption of bone questionable for osteomyelitis. CT/CT gi bleed abd pel wo/w IVcon IMPRESSION: No definite evidence of active GI bleeding. Diverticulosis colon. Wall thickening of the distal left colon and stranding of the surrounding fat suggestive of mild colitis or diverticulitis. There is mucosal enhancement seen in this region and this may be a site of bleeding. Left parastomal hernia containing small bowel. 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 Descending thoracic aorta is dilated 4.2 x 5 cm. The upper abdominal aorta is slightly dilated measuring 3 cm. The left superficial femoral artery is occluded. Napier catheter in the bladder. Thickened bladder wall. Question mild osteomyelitis of the right ischial tuberosity.
[2023-07-24 11:33] VITALS: BP 122/74; PULSE 79; RESP 16; O2SAT 99; BMI 27.4
[2023-07-24 11:36] VITALS: BP 144/74; PULSE 70; RESP 18; TEMP 36.5; O2SAT 100
--- NOTE | 2023-07-24 11:40 | ED.MALEGU ---
HPI - Male Genitourinary General Chief complaint: Urogenital-Male Stated complaint: ABD PAIN,? UTI PER EMS Time Seen by Provider: 07/24/23 11:40 Source: patient, EMS, RN notes reviewed and old records reviewed Mode of arrival: EMS Limitations: no limitations History of Present Illness HPI Narrative: 67-year-old male with a pmhx significant for paraplegia, MDD, HTN, chronic barth catheter for neurogenic bladder, chronic leakage around barth, AFib on Eliquis, colostomy, presents to the ED today via EMS for Barth catheter evaluation. Patient has a chronic Barth catheter and states this catheter has not been changed in over a month because I have no one to change it . States his visiting nurse no longer works for him. He follows with Dr. Duron and Dr. Jernigan outpatient. He states that he was supposed to have a suprapubic catheter placed 1 month ago but was unable to due to a family emergency . Additionally endorses bloody loose stool in his colostomy bag x1 day. Admits to taking Imodium regularly for chronic loose stools. Began noticing a red color to his stool yesterday. Related Data Home Medications Medication Instructions Recorded Confirmed apixaban 5 mg tablet (Eliquis) 1 tab PO BID 04/07/21 07/25/23 atorvastatin 20 mg tablet 1 tab PO DAILY 04/07/21 07/25/23 furosemide 20 mg tablet 1 tab PO BID 04/07/21 07/25/23 metoprolol tartrate 25 mg tablet 0.5 tab PO BID 07/02/21 07/25/23 fluoxetine 40 mg capsule 40 mg PO DAILY 07/25/23 07/25/23 Previous Rx's Medication Instructions Recorded nitrofurantoin See Rx Instructions PO .COMPLEX 01/25/23 monohydrate/macrocrystals 100 mg #30 caps capsule (Macrobid) vibegron 75 mg tablet (Gemtesa) 75 mg PO DAILY #90 tabs 04/14/23 Allergies Allergy/AdvReac Type Severity Reaction Status Date / Time No Known Allergies Allergy Verified 07/24/23 11:33 [No Known Allergies*] Review of Systems Review of Systems: Constitutional: No fever, chills, fatigue, night sweats, weight changes ENT/Mouth: No ear pain, hearing loss, nasal congestion, sinus pain, rhinorrhea, sore throat Eyes: No eye pain, swelling, redness, vision changes, discharge Cardio: No chest pain, palpitations, PANTOJA, orthopnea, peripheral edema Pulm: No SOB, cough, sputum, wheezing, dyspnea, hemoptysis GI: No nausea, vomiting, hematemesis, +abdominal pain, +diarrhea, No constipation, +hematochezia, No melena : No irregular bleeding, +dysuria, No frequency, urgency, hesitancy, hematuria, flank pain, urinary flow changes, urinary incontinence or retention MSK: No back pain, neck pain, joint pain, myalgias Skin: No lesions, rashes Neuro: No weakness, numbness, paresthesias, LOC, dizziness, headache All other systems reviewed and are negative. FORMERLY [facility], [facility] Past Medical History Attestation statement: The following information was validated with the patient. 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 Housing: House Are you a primary hospice care consultant to a significant other at home: No Do you presently have visiting nurse or other home services: Yes Alcohol intake: former Patient Tobacco Use Status: Former Tobacco user Quit Date: age 48's Tobacco use type: Cigarette Smoked in Last 30 Days: No Patient Interested in Nicotine Replacement: No Patient Given Instructions on How to Stop Smoking: No Use of substances other than those prescribed or required for medical reasons: No Currently Displaying Signs/Symptoms of Drug Intoxication Withdrawal: No Any prior treatment program specific to substance use: No Have you been hit, kicked, punched, or otherwise hurt by someone within the past year? If so, by whom?: No Do you feel safe in your current relationship?: No Current Relationship Is there a partner from a previous relationship who is making you feel unsafe now?: No Advance Directives: Yes Advance Directives on File: Yes Advance Directives Date on File: 04/08/21 Do you have thoughts of harming others: None Do you have a plan to hurt others: No Plan Recently lost weight without trying: No Eating poorly because of decreased appetite: No Nutrition Risks: No Nutritional Risk Poor oral hygiene: No service: No Current occupational status: disabled Physical Exam Vital Signs: Vital Signs: Last Vital Signs Temp 98.0 F 07/25/23 07:32 Pulse 62 07/25/23 07:32 Resp 19 07/25/23 07:32 BP 130/62 07/25/23 07:32 Pulse Ox 95 07/25/23 07:32 O2 Del Method Room Air 07/25/23 07:32 BMI result Body Mass Index 27.4 Vital signs stable, afebrile. Const: General: cooperative, no acute distress, alert and awake Nutritional Appearance: obese Orientation/consciousness: patient oriented x3 Limitations: no limitations HEENT: Head: Yes normal to inspection Ears: hearing grossly normal bilaterally General nose exam: Normal external nose present Eyes: General: appearance normal, both eyes and all related structures Conjunctivae: conjunctivae normal Sclerae: sclerae normal Pupils: Equal, round and reactive pupils present Neck: Neck: Yes normal visual inspection and Yes no lymphadenopathy Resp: Effort & Inspection: normal respiratory effort Auscultation: clear to auscultation bilaterally Cardio: Rate: regular rate Rhythm: regular rhythm Peripheral pulses: radial pulses present GI: Other: + Abdomen soft, mildly tender to palpation of the suprapubic region, nondistended, no rebound tenderness or guarding. Normoactive bowel sounds throughout. + Colostomy bag in place to left lower quadrant containing bloody loose stool. Inspection: Yes normal to inspection Rectal Exam - Male: Yes deferred and Yes other (Stool occult obtained from colostomy bag.) Abdomen image: 1. Colostomy bag : Other: + Barth catheter in place with dark yellow and hazy urine in bag. No penile discharge. No leakage from Barth. General: Yes no CVA tenderness Back/Spine/Pelvis: Back: no CVA tenderness Skin: General skin exam: no rashes or lesions noted Neuro: General: patient oriented x3, gait normal and moves all extremities Cranial nerves: Yes CN's II-XII intact bilaterally and Yes Equal, round and reactive pupils present Extrem: General: Yes normal to inspection and Yes full ROM Course Course Course Narrative: 1313-- CBC showing chronic anemia, no leukocytosis. No major drop in H&H to suggest significant bloos loss. Chemistry without acute electrolyte abnormality requiring intervention. Negative for COVID. Stool panel and C diff pending. > Urine positive for infection. Will start patient on antibiotics. > Stool occult taken from patient's colostomy bag positive for blood. Will order GI imaging protocol for further evaluation. 1422-- Patient stool positive for C diff. One dose of Vancomycin will be given. RN aware and patient placed on contact precautions. > Stool panel otherwise negative. Still awaiting CT. 1503-- Consulted on-call urologist, Dr. Thurston, who is now aware of patient and will follow-up with him outpatient for ?suprapubic catheter placement. 1612-- Barth catheter insertion attempted by both Marie GEE and Mindy GEE. I personally attempted Barth catheter insertion and was unsuccessful. Discussed case with my colleague Maury SINGH who will attempt Barth catheter insertion. 1647-- Patient signed out to my colleague Maury RAYGOZA. Reevaluation(s) Reevaluation #1: Patient's Barth is now draining, CT scan confirms accurate placement. Under review the patient's workup, he is positive for C diff, he does have a UTI. CT abdomen pelvis shows no obvious GI hemorrhage but submucosal thickening which is likely related to his C diff colitis. He has a chronic thoracic aneurysm dissection and aneurysm which the patient is aware of a reports that this has been treated. He has a left superficial artery occlusion. He states that he was not aware of this. I am able to palpate a left femoral artery pulse. His left upper leg is cool to the touch but has good color and capillary refill. I reached out to Dr. De La Cruz, vascular surgery who does not recommend any acute intervention regarding this and it is likely chronic. given the patient has GI bleed and is on Eliquis, he has C diff and a UTI we will discuss with hospitalist for admission. he has no evidence of sepsis Time: 20:23 Medications Administered Generic Name Dose Route Start Last Admin Trade Name Freq PRN Reason Stop Dose Admin Sodium Chloride 1,000 mls @ 100 mls/hr 07/24/23 21:30 07/25/23 09:19 Sodium Chloride 0.45 % IVCONT 100 mls/hr .Q10H KELLY Administration Morphine Sulfate 2 mg 07/24/23 21:29 07/25/23 09:19 Morphine Sulfate 4 Mg/Ml Cartridge IVPUSH 2 mg Q4H PRN Administration Pain, Severe (Pain Scale 7-10) Protocol Vancomycin HCl 125 mg 07/24/23 22:00 07/25/23 09:19 Vancomycin Hcl 125 Mg Capsule PO 125 mg Q6H KELLY Administration Discontinued Medications Generic Name Dose Route Start Last Admin Trade Name Freq PRN Reason Stop Dose Admin Ceftriaxone Sodium 500 mg/ 50 mls @ 100 mls/hr 07/24/23 14:02 07/24/23 14:48 Sodium Chloride IV 07/24/23 14:31 Infused ONCE ONE Infusion Iohexol 100 ml 07/24/23 17:19 07/24/23 17:19 Iohexol 350 Mg/Ml 100 Ml Infus..Btl IV 07/24/23 17:20 80 ml ONCE ONE Administration Lidocaine HCl 10 ml 07/24/23 15:43 07/24/23 16:28 Lidocaine Hcl 2 % Urojet 10 Ml Jel.Pf.Windy TOPICAL 07/24/23 15:44 10 ml ONCE ONE Administration Lidocaine HCl 10 ml 07/24/23 16:10 07/24/23 16:27 Lidocaine Hcl 2 % Urojet 10 Ml Jel.Pf.Windy TOPICAL 07/24/23 16:11 10 ml ONCE ONE Administration Lidocaine HCl 10 ml 07/24/23 16:10 07/24/23 16:27 Lidocaine Hcl 2 % Urojet 10 Ml Jel.Pf.Windy TOPICAL 07/24/23 16:11 10 ml ONCE ONE Administration Morphine Sulfate 2 mg 07/24/23 13:11 07/24/23 13:36 Morphine Sulfate 2 Mg/Ml Cartridge IVPUSH 07/24/23 13:12 2 mg ONCE ONE Administration Protocol Morphine Sulfate 4 mg 07/24/23 15:12 07/24/23 15:21 Morphine Sulfate 4 Mg/Ml Cartridge IVPUSH 07/24/23 15:13 4 mg ONCE ONE Administration Protocol Vancomycin HCl 125 mg 07/24/23 15:01 07/24/23 15:21 Vancomycin Hcl 125 Mg Capsule PO 07/24/23 15:02 125 mg ONCE ONE Administration Medical Decision Making Medical Decision Making MDM Narrative: 67-year-old male with a pmhx significant for paraplegia, MDD, HTN, chronic barth catheter for neurogenic bladder, chronic leakage around barth, AFib on Eliquis, colostomy, presents to the ED today via EMS for Barth catheter evaluation. RRR. Abdomen soft, mildly tender to palpation of the suprapubic region, nondistended, no rebound tenderness or guarding. Normoactive bowel sounds x4. Colostomy bag in place to left lower quadrant containing bloody loose stool. Barth catheter in place with dark yellow and hazy urine in bag. No penile discharge. No leakage from Barth. Clinical concern for urinary tract infection. Concern for GI bleed, gastroenteritis, C diff. Low suspicion for acute abdomen, ischemic bowel, obstruction. Plan at this time is basic labs, UA, stool occult, stool panel. Differential Diagnosis Differential Diagnoses: The differential diagnosis associated with the presentation includes As above. Admission/Observation Consideration of admission/observation: Escalation of care including admission/observation considered Patient to be admitted to medicine. Consult Healthcare Provider Management of the patient was discussed with: Hospitalist ( patient was accepted to the medical service by Dr Frias) and Editor At Large (Urologist Dr. Thurston, Vascular Surgeon Dr. De La Cruz ) Lab Data [facility] Lab Attestation statement: I reviewed the patient's lab results. As above. 07/25/23 04:58 07/25/23 04:58 Labs: Lab Results 07/24/23 07/24/23 07/24/23 Range/Units 11:55 12:02 12:51 WBC 6.9 (4.8-10.8) X10*3/uL RBC 4.42 L (4.60-5.80) X10*6/uL Hgb 13.5 L (14.0-18.0) g/dl Hct 41.2 L (42.0-52.0) % MCV 93.2 (80.0-98.0) fL MCH 30.5 (27.0-33.0) pg MCHC 32.8 (31.0-36.0) g/dl RDW 13.8 (11.0-16.0) % Plt Count 189 (160-400) X10*3/uL MPV 10.1 (9.4-12.4) fL Immature Gran % (Auto) 0.1 (0.0-0.4) % Neut % (Auto) 65.0 (45-73) % Lymph % (Auto) 21.4 (20-40) % [place] % (Auto) 9.2 (2-11) % Eos % (Auto) 3.6 (0-4) % Baso % (Auto) 0.7 (0-2) % Lymph # (Auto) 1.5 (1.2-4.9) X10*3/uL [place] # (Auto) 0.6 (0.1-1.2) X10*3/uL Eos # (Auto) 0.3 (0.0-0.4) X10*3/uL Baso # (Auto) 0.1 (0.0-0.2) X10*3/uL Abs Immat Gran (auto) 0.01 (0.00-0.03) X10*3/uL Absolute Neuts (auto) 4.5 (2.0-8.3) x10*3/uL Absolute Nucleated RBC 0.000 (0.0-0.012) X10*3/uL Nucleated RBC % (auto) 0.0 (0.0-0.2) /100WBC PT (11.1-13.3) SEC INR (0.9-1.1) Sodium 137 (135-145) mmol/L Potassium 5.0 (3.3-5.1) mmol/L Chloride 109 H (96-108) mmol/L Carbon Dioxide 20 L (22-29) mmol/L Anion Gap 13 (12-20) BUN 22 H (9-16) mg/dL Creatinine 0.60 (0.5-1.4) mg/dL Estim Creat Clear Calc 112.0 Estimated GFR > 60 Random Glucose 78 (60-115) mg/dL Calcium 9.1 (8.4-10.2) mg/dL Magnesium 2.4 (1.6-2.6) mg/dL Total Bilirubin 0.6 (0.0-1.0) mg/dL AST 25 (5-37) U/L ALT 8 (0-40) U/L Alkaline Phosphatase 92 (39-117) U/L Total Protein 7.7 (6.5-8.0) g/dL Albumin 3.6 (3.5-5.0) g/dL Lipase 19 (8-78) U/L Urine Color Dark Yellow Urine Appearance Turbid Urine pH >= 9.0 (5.0-9.0) Ur Specific Bellamy 1.020 (1.005-1.025) Urine Protein 300 (3+) H (Neg-Trace) mg/dL Urine Glucose (UA) Negative (Negative) mg/dL Urine Ketones Negative (Negative) mg/dL Urine Blood Moderate (2+) H (Negative) Urine Nitrite Negative (Negative) Ur Leukocyte Esterase Large (3+) H (Negative) Urine RBC >20 H (0-2) /HPF Urine WBC 11-20 H (0-5) /HPF Ur Squamous Epith Cells 6-10 (0-2) /HPF Other Crystals Present Urine Bacteria 4+ (None Seen) Hyaline Casts 0-2 (0-2) /LPF Stool Occult Blood POSITIVE (NEGATIVE) Stl C. cayetanensis PCR Not Detected (Not Detect.) Stool Rotavirus A PCR Not Detected (Not Detect.) Stl Adenov F 40/41 PCR Not Detected (Not Detect.) Stool Astrovirus (PCR) Not Detected (Not Detect.) Stool Campylobacter PCR Not Detected (Not Detect.) Stool Cryptosporidium PCR Not Detected (Not Detect.) Stl Sh Tox Pr E STEC PCR Not Detected (Not Detect.) Stool E coli O157 PCR Not applicable (Not Detect.) Stl Enterotoxigenic E PCR Not Detected (Not Detect.) Stool EPEC (PCR) Not Detected (Not Detect.) Stool EAEC (PCR) Not Detected (Not Detect.) Stl E. histolytica PCR Not Detected (Not Detect.) Stool Giardia Lamblia PCR Not Detected (Not Detect.) Stl P. shigelloides PCR Not Detected (Not Detect.) Stool Salmonella PCR Not Detected (Not Detect.) Stool Sapovirus (PCR) Not Detected (Not Detect.) Stl Shigella/EIEC PCR Not Detected (Not Detect.) St Y.enterocolitica PCR Not Detected (Not Detect.) Stool Vibrio (PCR) Not Detected (Not Detect.) Stl Vibrio cholerae PCR Not Detected (Not Detect.) Stl Norovirus GI/GII PCR Not Detected (Not Detect.) C. difficile Tox B Gene POSITIVE A* (Negative) C. difficile Toxin A&B Negative (Negative) C. difficile Interpret SEE NOTE COVID-19 (CHRISTINE) Negative (Negative) COVID-19 Clin Com See Note Blood Type Antibody Screen 07/24/23 Range/Units 13:31 WBC (4.8-10.8) X10*3/uL RBC (4.60-5.80) X10*6/uL Hgb (14.0-18.0) g/dl Hct (42.0-52.0) % MCV (80.0-98.0) fL MCH (27.0-33.0) pg MCHC (31.0-36.0) g/dl RDW (11.0-16.0) % Plt Count (160-400) X10*3/uL MPV (9.4-12.4) fL Immature Gran % (Auto) (0.0-0.4) % Neut % (Auto) (45-73) % Lymph % (Auto) (20-40) % [place] % (Auto) (2-11) % Eos % (Auto) (0-4) % Baso % (Auto) (0-2) % Lymph # (Auto) (1.2-4.9) X10*3/uL [place] # (Auto) (0.1-1.2) X10*3/uL Eos # (Auto) (0.0-0.4) X10*3/uL Baso # (Auto) (0.0-0.2) X10*3/uL Abs Immat Gran (auto) (0.00-0.03) X10*3/uL Absolute Neuts (auto) (2.0-8.3) x10*3/uL Absolute Nucleated RBC (0.0-0.012) X10*3/uL Nucleated RBC % (auto) (0.0-0.2) /100WBC PT 13.1 (11.1-13.3) SEC INR 1.1 (0.9-1.1) Sodium (135-145) mmol/L Potassium (3.3-5.1) mmol/L Chloride (96-108) mmol/L Carbon Dioxide (22-29) mmol/L Anion Gap (12-20) BUN (9-16) mg/dL Creatinine (0.5-1.4) mg/dL Estim Creat Clear Calc Estimated GFR Random Glucose (60-115) mg/dL Calcium (8.4-10.2) mg/dL Magnesium (1.6-2.6) mg/dL Total Bilirubin (0.0-1.0) mg/dL AST (5-37) U/L ALT (0-40) U/L Alkaline Phosphatase (39-117) U/L Total Protein (6.5-8.0) g/dL Albumin (3.5-5.0) g/dL Lipase (8-78) U/L Urine Color Urine Appearance Urine pH (5.0-9.0) Ur Specific Bellamy (1.005-1.025) Urine Protein (Neg-Trace) mg/dL Urine Glucose (UA) (Negative) mg/dL Urine Ketones (Negative) mg/dL Urine Blood (Negative) Urine Nitrite (Negative) Ur Leukocyte Esterase (Negative) Urine RBC (0-2) /HPF Urine WBC (0-5) /HPF Ur Squamous Epith Cells (0-2) /HPF Other Crystals Urine Bacteria (None Seen) Hyaline Casts (0-2) /LPF Stool Occult Blood (NEGATIVE) Stl C. cayetanensis PCR (Not Detect.) Stool Rotavirus A PCR (Not Detect.) Stl Adenov F 40/41 PCR (Not Detect.) Stool Astrovirus (PCR) (Not Detect.) Stool Campylobacter PCR (Not Detect.) Stool Cryptosporidium PCR (Not Detect.) Stl Sh Tox Pr E STEC PCR (Not Detect.) Stool E coli O157 PCR (Not Detect.) Stl Enterotoxigenic E PCR (Not Detect.) Stool EPEC (PCR) (Not Detect.) Stool EAEC (PCR) (Not Detect.) Stl E. histolytica PCR (Not Detect.) Stool Giardia Lamblia PCR (Not Detect.) Stl P. shigelloides PCR (Not Detect.) Stool Salmonella PCR (Not Detect.) Stool Sapovirus (PCR) (Not Detect.) Stl Shigella/EIEC PCR (Not Detect.) St Y.enterocolitica PCR (Not Detect.) Stool Vibrio (PCR) (Not Detect.) Stl Vibrio cholerae PCR (Not Detect.) Stl Norovirus GI/GII PCR (Not Detect.) C. difficile Tox B Gene (Negative) C. difficile Toxin A&B (Negative) C. difficile Interpret COVID-19 (CHRISTINE) (Negative) COVID-19 Clin Com Blood Type B Positive Antibody Screen NEGATIVE Independent Interpretation I performed an independent interpretation of an: CT Scan Radiology Impression Discussion of test interpretation with radiology: I have reviewed the radiologist's reading. Radiologist Impression: CT GI bleed abd pel wo/w IVcon IMPRESSION: No definite evidence of active GI bleeding. Diverticulosis colon. Wall thickening of the distal left colon and stranding of the surrounding fat suggestive of mild colitis or diverticulitis. There is mucosal enhancement seen in this region and this may be a site of bleeding. Left parastomal hernia containing small bowel. 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 Descending thoracic aorta is dilated 4.2 x 5 cm. The upper abdominal aorta is slightly dilated measuring 3 cm. The left superficial femoral artery is occluded. Barth catheter in the bladder. Thickened bladder wall. Question mild osteomyelitis of the right ischial tuberosity. Independent Historian Clinical information obtained from an independent historian. History obtained from or confirmed by: EMS External Record Review External record reviewed: Inpatient record and Outpatient record Prescription Management I considered prescription management with: Pain Medication and Antibiotic Chronic Conditions Patient?s care impacted by: Other (Nerogenic bladder with chronic Barth catheterization) Social Determinants Patient?s care significantly limited by Social Determinants of Health including: Other Social Determinant of Health Procedures Procedure Narrative Procedure Narrative: Patient received in sign-out pending catheter replacement and CT imaging. I attempted to insert a 20 Danish coude catheter the catheter was easily introduced nearly to the hub. The patient had mild discomfort with inflammation of balloon to 30 cc there was no immediate return urine, we will observe the patient to see if there is any return. The patient we bladder scanned as well. Critical Care Time Critical Care Time Critical Care Time: Yes Total Critical Care Time: 60 Attestation: Critical care time in the amount of 60 minutes has been provided to the patient in terms of direct patient care, frequent reevaluation on IV morphine, consultation with Urologist Dr. Thurston, review and interpretation of medical data and results, and management of potentially life-threatening conditions. This is all outside of any medical procedures. Discharge Plan Discharge Clinical Impression: Urinary tract infection, Acute GI bleeding, C. difficile colitis Patient Disposition: Admitted As Inpatient Interventions: Admission Worksheet (ED) Last Done: 07/25/23 06:16 Discharge Date/Time: 07/25/23 06:18
[2023-07-24 12:01] LABS: MANUAL DIFF FLAG NO
[2023-07-24 12:03] LABS: Basophils Absolute Auto 0.1 X10*3/uL (0.0-0.2); Basophils Percent Auto 0.7 % (0-2); Eosinophils Absolute Auto 0.3 X10*3/uL (0.0-0.4); Eosinophils Percent Auto 3.6 % (0-4); Hematocrit 41.2 % (42.0-52.0); Hemoglobin 13.5 g/dl (14.0-18.0); Imm Gran Abs Auto 0.01 X10*3/uL (0.00-0.03); Imm Gran Pct Auto 0.1 % (0.0-0.4); Lymphocytes Absolute Auto 1.5 X10*3/uL (1.2-4.9); Lymphocytes Percent Auto 21.4 % (20-40); Mean Corpuscular HGB Conc 32.8 g/dl (31.0-36.0); Mean Corpuscular Hemoglobin 30.5 pg (27.0-33.0); Mean Corpuscular Volume 93.2 fL (80.0-98.0); Mean Platelet Volume 10.1 fL (9.4-12.4); Monocytes Absolute Auto 0.6 X10*3/uL (0.1-1.2); Monocytes Percent Auto 9.2 % (2-11); Neutrophils Absolute Auto 4.5 x10*3/uL (2.0-8.3); Platelet Count 189 X10*3/uL (160-400); Red Blood Count 4.42 X10*6/uL (4.60-5.80); Red Cell Distribution Width 13.8 % (11.0-16.0); White Blood Count 6.9 X10*3/uL (4.8-10.8)
[2023-07-24 12:10] LABS: Appearance Urine Turbid; Color Urine Dark Yellow; Glucose Urine UA Negative (Negative); Leukocyte Esterase Urine Large (3+) (Negative); Nitrite Urine Negative (Negative); PH >= 9.0 (5.0-9.0); UMIC TRIGGER UACC YES; Urine Blood Moderate (2+) (Negative); Urine Ketones Negative (Negative); Urine Protein 300 (3+) mg/dL (Neg-Trace)
[2023-07-24 12:19] LABS: Bacteria Urine 4+ (None Seen); Hyaline Casts Urine 0-2 /LPF (0-2); Other Crystals Urine Present; RBC Urine >20 /HPF (0-2); UACC Culture Trigger YES
[2023-07-24 12:20] LABS: COVID-19 Test Negative (Negative); IDNOW Serial# BCCEAD1C
[2023-07-24 12:39] LABS: Alanine Aminotransferase 8 U/L (0-40); Albumin Level 3.6 g/dL (3.5-5.0); Alkaline Phosphatase 92 U/L (39-117); Anion Gap 13 (12-20); Aspartate Amino Transferase 25 U/L (5-37); Bilirubin Total 0.6 mg/dL (0.0-1.0); Blood Urea Nitrogen 22 mg/dL (9-16); Calcium 9.1 mg/dL (8.4-10.2); Carbon Dioxide 20 mmol/L (22-29); Chloride 109 mmol/L (96-108); Estimated Glomerular Filt Rate > 60; Glucose Random 78 mg/dL (60-115); Lipase 19 U/L (8-78); Magnesium 2.4 mg/dL (1.6-2.6); Sodium 137 mmol/L (135-145); Total Protein 7.7 g/dL (6.5-8.0)
[2023-07-24 12:55] VITALS: BP 122/72; PULSE 68; RESP 18; O2SAT 99
--- NOTE | 2023-07-24 13:02 | PC.NURSE ---
colostomy bag emptied/cleaned. stool samples sent to lab. vss and up to date at this time. pt c/o groin pain and requesting medication - will notify provider. call mejias placed within reach.
[2023-07-24 13:03] LABS: OBS Int Ctl Valid YES; OBS1 POSITIVE (NEGATIVE)
[2023-07-24] MEDS: Morphine Sulfate 2 MG/ML CARTRIDGE IVPUSH (13:36)
--- NOTE | 2023-07-24 13:38 | PC.NURSE ---
20gIV placed in right forearm w/o difficulty - labs drawn and sent to lab. medication administered per provider order.
[2023-07-24 13:48] LABS: INTERNATIONAL NORM RATIO 1.1 (0.9-1.1); Prothrombin Time 13.1 SEC (11.1-13.3)
[2023-07-24 14:00] VITALS: BP 121/64; PULSE 66; RESP 18; O2SAT 96
[2023-07-24 14:00] LABS: CDiff Gene PCR POSITIVE (Negative)
--- NOTE | 2023-07-24 14:22 | PC.NURSE ---
c-diff positive. contact precautions in place. medication administered per provider order. call mejias placed within reach.
[2023-07-24 14:44] LABS: Adenovirus F 40/41 Not Detected (Not Detect.); Astrovirus Not Detected (Not Detect.); Campylobacter Not Detected (Not Detect.); Cryptosporidium Not Detected (Not Detect.); Cyclospora cayetanensis Not Detected (Not Detect.); E. coli EAEC Not Detected (Not Detect.); E. coli EPEC Not Detected (Not Detect.); E. coli ETEC Not Detected (Not Detect.); E. coli STEC Not Detected (Not Detect.); Entamoeba histolytica Not Detected (Not Detect.); Giardia lamblia Not Detected (Not Detect.); Norovirus GI/GII Not Detected (Not Detect.); Plesiomonas shigelloides Not Detected (Not Detect.); Rotavirus A Not Detected (Not Detect.); Salmonella Not Detected (Not Detect.); Sapovirus Not Detected (Not Detect.); Shigella sp./EIEC Not Detected (Not Detect.); Vibrio Not Detected (Not Detect.); Vibrio Cholerae Not Detected (Not Detect.); Yersinia enterocolitica Not Detected (Not Detect.)
[2023-07-24 14:48] LABS: CDIFF Internal ctrl Dots and bkg OK (V); CDiff Toxin Negative (Negative)
[2023-07-24] MEDS: vancomycin HCL 125 MG CAPSULE PO ×2 (15:21→22:40)
[2023-07-24] MEDS: Morphine Sulfate 4 MG/ML CARTRIDGE IVPUSH (15:21)
[2023-07-24 16:00] VITALS: BP 134/79; PULSE 74; RESP 16; O2SAT 94
--- NOTE | 2023-07-24 16:20 | PC.NURSE ---
medication administered per provider order. this RN attempted to put barth catheter in but was unsuccessful. RN jonny was also unable to put barth catheter in. SAMANTHA Stoddard was also unsuccessful. SAMANTHA Mendiola going to attempt when he comes in for his shift.
[2023-07-24] MEDS: Lidocaine HCl 2 % Urojet 10 ML JEL.PF.APP TOPICAL ×3 (16:27→16:28)
--- NOTE | 2023-07-24 16:40 | PC.NURSE ---
SAMANTHA anderson was successful in placing barth catheter. at this time, urine is not draining. will obtain bladder scan.
--- NOTE | 2023-07-24 17:00 | PC.NURSE ---
pt to CT at this time. kitchen called/order placed so pt has tray when he is able to eat.
[2023-07-24] MEDS: iohexoL 350 MG/ML 100 ML INFUS..BTL IV (17:19)
--- NOTE | 2023-07-24 17:51 | PC.NURSE ---
pt returned from CT. tech performed bladder scan - displaying 13ml. urine still not present in catheter bag at this time. call mejias placed within reach.
[2023-07-24 19:07] VITALS: BP 126/68; PULSE 75; RESP 14; O2SAT 98
--- NOTE | 2023-07-24 19:08 | PC.NURSE ---
vss and up to date at this time. nsr on the cafeteria monitor. pt still verbalizing 7/10 grin pain at this time and is requesting pain medication - will notify provider. pt seems to remain in no apparent distress at this time. respirations remain remain even and unlabored. call mejias placed within reach.
--- NOTE | 2023-07-24 20:20 | PC.NURSE ---
pt resting comfortably in no apparent distress eating dinner at this time. call mejias placed within reach.
--- NOTE | 2023-07-24 21:35 | PM.IMHP ---
History of Present Illness Date of Service: 07/24/23 Chief Complaint: bloody bowel movements, urinary problem A 68-year-old male with PMH of AFib, on Eliquis, hypertension, colostomy, Lt BKA, depression, paraplegia, chronic indwelling Napier catheter since 2020 who presents from [facility] for bloody bowel movements and inability to pass urine. Patient reports that it started few days ago with mainly bloody liquid and increased frequency of BM, associated with urinary retention this morning, no fever no chills, no flank pain. denies any chest pain, no abdominal pain, patient is paraplegic and is usually bedbound. In ED Hemoglobin level seems stable at 13. CT scan showed possible colitis and suspected area of bleeding. The bloody stool tested positive for C.Diff antigen while his urine looks infected. Admitted for further evaluation and treatment. Review of Systems Review of Systems: No fever, chills or weakness No chest pain, palpitation No shortness of breath or coughing No abdominal pain, nausea or vomiting but has bloody stool urine retention and inability to pass urine No any rash or wounds PMFSH Medical History Left below-knee amputee Chronic indwelling Napier catheter Elevated cholesterol Muscle weakness Embolism Atrial fibrillation Essential hypertension Major depressive disorder COVID Surgical History S/P colostomy H/O colonoscopy Hx of cholecystectomy History of AAA (abdominal aortic aneurysm) repair Social History Household Members: Caregiver Household Members Other:: 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 Housing: Apartment Are you a primary direct care supervisor to a significant other at home: No Do you presently have visiting nurse or other home services: No (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-lives in apartment above patient's) Alcohol intake: former Patient Tobacco Use Status: Former Tobacco user Quit Date: age 48's Tobacco use type: Cigarette Smoked in Last 30 Days: No Use of substances other than those prescribed or required for medical reasons: No Advance Directives: Yes Advance Directives on File: Yes Advance Directives Date on File: 04/08/21 service: No Current occupational status: disabled Meds Allergies Allergy/AdvReac Type Severity Reaction Status Date / Time No Known Allergies Allergy Verified 07/24/23 11:33 [No Known Allergies*] Home Medications Medication Instructions Recorded Confirmed Last Taken Type apixaban 5 mg tablet (Eliquis) 1 tab PO BID 04/07/21 06/07/23 Unknown History atorvastatin 20 mg tablet 1 tab PO DAILY 04/07/21 06/07/23 Unknown History cholestyramine-aspartame 4 gram 1 packet PO BID 04/07/21 06/07/23 Unknown History oral powder for susp in a packet (Cholestyramine Light) furosemide 20 mg tablet 1 tab PO BID 04/07/21 06/07/23 Unknown History mirtazapine 15 mg tablet 1 tab PO BEDTIME 04/07/21 06/07/23 Unknown History quetiapine 50 mg tablet 1 tab PO BID 04/07/21 06/07/23 Unknown History fluoxetine 20 mg capsule 1 cap PO QAM 07/02/21 06/07/23 Unknown History gabapentin 800 mg tablet 1 tab PO TID 07/02/21 06/07/23 Unknown History lisinopril 5 mg tablet 1 tab PO DAILY 07/02/21 06/07/23 Unknown History metoprolol tartrate 25 mg tablet 0.5 tab PO BID 07/02/21 06/07/23 Unknown History multivitamin 1 tab PO DAILY 07/02/21 06/07/23 Unknown History ipratropium 20 mcg-albuterol 100 1 puff inhalation QID 07/03/21 06/07/23 Unknown History mcg/actuation mist for inhalation (Combivent Respimat) Physical Exam Vital Signs and Narrative: Vital Signs: Last Vital Signs Temp 97.7 F 07/24/23 11:36 Pulse 75 07/24/23 19:07 Resp 14 07/24/23 19:07 BP 126/68 07/24/23 19:07 Pulse Ox 98 07/24/23 19:07 O2 Del Method Room Air 07/24/23 19:07 BMI result Body Mass Index 27.4 Const: Other: Constitutional : Awake, interactive, not in distress Neck : Normal inspection, Supple Cardiovascular : RRR, no JVP, no lower extremity edema Respiratory : good bilateral air entry, no crackles, wheezes or rhonchi Gastrointestinal: soft, lax, Normal bowel sounds, Non tender, Colostomy in place with red blood in the bag Skin : Warm, Dry Skeletal: Lt BKA Neurological : Alert & oriented x3, paraplegic Results Labs 07/24/23 11:55 07/24/23 11:55 Labs: Laboratory Results - last 24 hr 07/24/23 07/24/23 07/24/23 11:55 12:02 12:51 MCV 93.2 MCH 30.5 MCHC 32.8 RDW 13.8 Plt Count 189 MPV 10.1 Immature Gran % (Auto) 0.1 Neut % (Auto) 65.0 Lymph % (Auto) 21.4 [place] % (Auto) 9.2 Eos % (Auto) 3.6 Baso % (Auto) 0.7 Lymph # (Auto) 1.5 [place] # (Auto) 0.6 Eos # (Auto) 0.3 Baso # (Auto) 0.1 Abs Immat Gran (auto) 0.01 Absolute Neuts (auto) 4.5 Absolute Nucleated RBC 0.000 Nucleated RBC % (auto) 0.0 PT INR Anion Gap 13 Estim Creat Clear Calc 112.0 Estimated GFR > 60 Random Glucose 78 Calcium 9.1 Magnesium 2.4 Total Bilirubin 0.6 AST 25 ALT 8 Alkaline Phosphatase 92 Total Protein 7.7 Albumin 3.6 Lipase 19 Urine Color Dark Yellow Urine Appearance Turbid Urine pH >= 9.0 Ur Specific [place] 1.020 Urine Protein 300 (3+) H Urine Glucose (UA) Negative Urine Ketones Negative Urine Blood Moderate (2+) H Urine Nitrite Negative Ur Leukocyte Esterase Large (3+) H Urine RBC >20 H Urine WBC 11-20 H Ur Squamous Epith Cells 6-10 Other Crystals Present Urine Bacteria 4+ Hyaline Casts 0-2 Stool Occult Blood POSITIVE Stl C. cayetanensis PCR Not Detected Stool Rotavirus A PCR Not Detected Stl Adenov F 40/41 PCR Not Detected Stool Astrovirus (PCR) Not Detected Stool Campylobacter PCR Not Detected Stool Cryptosporidium PCR Not Detected Stl Sh Tox Pr E STEC PCR Not Detected Stool E coli O157 PCR Not applicable Stl Enterotoxigenic E PCR Not Detected Stool EPEC (PCR) Not Detected Stool EAEC (PCR) Not Detected Stl E. histolytica PCR Not Detected Stool Giardia Lamblia PCR Not Detected Stl P. shigelloides PCR Not Detected Stool Salmonella PCR Not Detected Stool Sapovirus (PCR) Not Detected Stl Shigella/EIEC PCR Not Detected St Y.enterocolitica PCR Not Detected Stool Vibrio (PCR) Not Detected Stl Vibrio cholerae PCR Not Detected Stl Norovirus GI/GII PCR Not Detected C. difficile Tox B Gene POSITIVE A* C. difficile Toxin A&B Negative C. difficile Interpret SEE NOTE COVID-19 (CHRISTINE) Negative COVID-19 Clin Com See Note Blood Type Antibody Screen 07/24/23 13:31 MCV MCH MCHC RDW Plt Count MPV Immature Gran % (Auto) Neut % (Auto) Lymph % (Auto) [place] % (Auto) Eos % (Auto) Baso % (Auto) Lymph # (Auto) [place] # (Auto) Eos # (Auto) Baso # (Auto) Abs Immat Gran (auto) Absolute Neuts (auto) Absolute Nucleated RBC Nucleated RBC % (auto) PT 13.1 INR 1.1 Anion Gap Estim Creat Clear Calc Estimated GFR Random Glucose Calcium Magnesium Total Bilirubin AST ALT Alkaline Phosphatase Total Protein Albumin Lipase Urine Color Urine Appearance Urine pH Ur Specific [place] Urine Protein Urine Glucose (UA) Urine Ketones Urine Blood Urine Nitrite Ur Leukocyte Esterase Urine RBC Urine WBC Ur Squamous Epith Cells Other Crystals Urine Bacteria Hyaline Casts Stool Occult Blood Stl C. cayetanensis PCR Stool Rotavirus A PCR Stl Adenov F 40/41 PCR Stool Astrovirus (PCR) Stool Campylobacter PCR Stool Cryptosporidium PCR Stl Sh Tox Pr E STEC PCR Stool E coli O157 PCR Stl Enterotoxigenic E PCR Stool EPEC (PCR) Stool EAEC (PCR) Stl E. histolytica PCR Stool Giardia Lamblia PCR Stl P. shigelloides PCR Stool Salmonella PCR Stool Sapovirus (PCR) Stl Shigella/EIEC PCR St Y.enterocolitica PCR Stool Vibrio (PCR) Stl Vibrio cholerae PCR Stl Norovirus GI/GII PCR C. difficile Tox B Gene C. difficile Toxin A&B C. difficile Interpret COVID-19 (CHRISTINE) COVID-19 Clin Com Blood Type B Positive Antibody Screen NEGATIVE Imaging Radiologist's Impressions: Impressions Abdomen/Pelvis CT 07/24/23 17:51 IMPRESSION: No definite evidence of active GI bleeding. Diverticulosis colon. Wall thickening of the distal left colon and stranding of the surrounding fat suggestive of mild colitis or diverticulitis. There is mucosal enhancement seen in this region and this may be a site of bleeding. Left parastomal hernia containing small bowel. 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 Descending thoracic aorta is dilated 4.2 x 5 cm. The upper abdominal aorta is slightly dilated measuring 3 cm. The left superficial femoral artery is occluded. Napier catheter in the bladder. Thickened bladder wall. Question mild osteomyelitis of the right ischial tuberosity. Assessment and Plan (1) C. difficile colitis: Status: Acute (2) Acute GI bleeding: Status: Acute (3) Chronic indwelling Napier catheter: Status: Acute (4) Urinary tract infection: Status: Acute Plan A 68-year-old male with PMH of AFib, on Eliquis, hypertension, colostomy, Lt BKA, depression, paraplegia, chronic indwelling Napier catheter since 2020 who presents from [facility] for bloody bowel movements and inability to pass urine. # GIB Likely from colitis CT scan suspecting area of bleeding get GI eval follow H&H # C.Diff colitis Based on CT scan findings No pain\fever but has bloody bowel motion Tested negative for antigen GI consult # Napier catheter related UTI Could be a colony afebrile, no leukocytosis Had 1 dose ceftriaxone in ED, will hold pending cultures and ID rec # AFib hold Eliquis continue diltiazem # hypertension continue diltiazem Pending Med rec. DVT prophylaxis SCDs in the setting of GIB Will need to stay inpatient 2 or more nights for treatmnet of above Time Spent With Patient Time: Total time managing care of this patient today ____ minutes. Quality Stroke Does the patient have a stroke diagnosis?: No VTE Prior VTE?: No VTE Risk Level:: Medical - moderate - high VTE Device Contraindication: N/A - Device Ordered VTE Drug Contraindication: Treatment Not Indicated
[2023-07-24] MEDS: Sodium Chloride 0.45 % 1,000 ML 100 ML IVCONT (22:33)
[2023-07-25] VITALS (7 sets, daily range): BP systolic 103–134; BP diastolic 45–68; PULSE 62–76; RESP 15–19; TEMP 36.1–36.7; O2SAT 95–99
--- NOTE | 2023-07-25 | ECG_ITS ---
Test Reason : LISY Blood Pressure : / mmHG Vent. Rate : 065 BPM Atrial Rate : 000 BPM P-R Int : 000 ms QRS Dur : 110 ms QT Int : 434 ms P-R-T Axes : 000 -70 066 degrees QTc Int : 451 ms Atrial fibrillation Left anterior fascicular block Possible Anterolateral leads infarct Abnormal ECG When compared with ECG of 24-JUL-2023 22:09, No significant change was found Referred By: Patricia Frias Electronically Signed By:JOHNNA GUEVARA MD
--- NOTE | 2023-07-25 00:44 | PC.NURSE ---
Patient had an episode while asleep where he became bradycardic to the 30's. He has been stable in the 70-90 range throughout shift. Patient repositioned and cardiac leads remain in proper order. Heart rate dipped again into the 40s. EKG ordered.
[2023-07-25] MEDS: vancomycin HCL 125 MG CAPSULE PO ×4 (04:55→21:34)
--- NOTE | 2023-07-25 04:57 | PC.NURSE ---
this rn assumed care of pt @ 0300. pt calm and cooperative. pt medicated according to nov. lights dimmed to promote rest
[2023-07-25 05:27] LABS: Hemoglobin 11.9 g/dl (14.0-18.0); Mean Corpuscular HGB Conc 33.1 g/dl (31.0-36.0); Mean Corpuscular Hemoglobin 31.2 pg (27.0-33.0); Mean Corpuscular Volume 94.5 fL (80.0-98.0); Mean Platelet Volume 10.7 fL (9.4-12.4); Platelet Count 170 X10*3/uL (160-400); Red Blood Count 3.81 X10*6/uL (4.60-5.80); Red Cell Distribution Width 13.9 % (11.0-16.0); White Blood Count 7.2 X10*3/uL (4.8-10.8)
[2023-07-25 05:44] LABS: Anion Gap 11 (12-20); Blood Urea Nitrogen 20 mg/dL (9-16); Calcium 8.3 mg/dL (8.4-10.2); Carbon Dioxide 20 mmol/L (22-29); Chloride 109 mmol/L (96-108); Creatinine Clr Calc Pharmacy 126.7; Estimated Glomerular Filt Rate > 60; Glucose Random 87 mg/dL (60-115); Potassium 3.8 mmol/L (3.3-5.1); Sodium 136 mmol/L (135-145)
--- NOTE | 2023-07-25 06:07 | PC.NURSE ---
this rn gave report to masoud morel in [facility]. pt awaiting transport to unit at this time
[2023-07-25] MEDS: Morphine Sulfate 4 MG/ML CARTRIDGE 2 MG IVPUSH ×2 (09:19→15:51)
[2023-07-25] MEDS: Sodium Chloride 0.45 % 1,000 ML 100 ML IVCONT ×2 (09:19→18:09)
--- NOTE | 2023-07-25 09:37 | MHC.CM.PN ---
[facility] DELIVERED PT LIVES ALONE BUT [facility] LIVES ABOVE HIM AND HELPS OUT SEVERAL HOURS PER DAY. PT IS W/C/BED BOUND AT BASELINE AND IS UNABLE TO TRANSFER SELF . HAS INDWELLING CATH THAT HAS BEEN MANAGED BY A VNA BUT PT UNCERTAIN OF THE AGENCY . PT STATES HE HAS A HOSPITAL BED. +HCP ON FILE COVID VAX X1 PCP DR. RAMIREZ. DP: HOME WITH RESUMPTION OF [facility]/VNA SERVICES. PT NOT INTERESTED IN REHAB AT THIS TIME. PT GIVES PERMISSION FOR THIS CM TO CALL HCP FOR ANY FURTHER INFORMATION. WILL REQUIRE BLS TRANSPORT. CM WILL CONTINUE TO FOLLOW FOR DC NEEDS/PLAN.
--- NOTE | 2023-07-25 10:44 | PHA.MEDREC ---
Pharmacy Consult ? Medication Reconciliation Pharmacy has completed the medication reconciliation. Pt is poor historian and was unable to recall any of the names of his home medications. I asked if he would recognize them if I said them and he said no. I asked if he only took what the pharmacy was filling for him and he said yes so claim history used for med rec. The only thing he was able to confirm was that he stopped taking gabapentin and seroquel.
--- NOTE | 2023-07-25 12:33 | P.PNIM_ITS ---
Subjective Subjective Date of Service: 07/25/23 Review of Systems follow up GI bleed some diffuse abdominal pain Physical Exam 2 Vital Signs: Vital Signs: Last Vital Signs Temp 97.8 F 07/25/23 11:45 Pulse 72 07/25/23 11:45 Resp 19 07/25/23 11:45 BP 134/63 07/25/23 11:45 Pulse Ox 98 07/25/23 11:45 O2 Del Method Room Air 07/25/23 11:45 BMI result Body Mass Index 27.4 Appearing in no acute distress lung sounds are clear to auscultation heart regular rate rhythm, clear S1, S2 positive bowel sounds, abdomen is soft, nontender, colostomy, chronic barth catheter neuro patient is alert x3, no focal deficits Objective Data Active Medications Acetaminophen (Acetaminophen 325 Mg Tablet) 650 mg PO Q6H PRN PRN Reason: Pain, Mild (Pain Scale 1-3) Sodium Chloride (Sodium Chloride 0.45 %) 1,000 mls @ 100 mls/hr IVCONT .Q10H [facility] Last Admin: 07/25/23 09:19 Dose: 100 mls/hr Documented By: EDUAR Morphine Sulfate (Morphine Sulfate 4 Mg/Ml Cartridge) 2 mg IVPUSH Q4H PRN; Protocol PRN Reason: Pain, Severe (Pain Scale 7-10) Last Admin: 07/25/23 09:19 Dose: 2 mg Documented By: EDUAR Ondansetron HCl (Ondansetron Hcl 4 Mg/2 Ml Vial) 4 mg IVPUSH Q8H PRN PRN Reason: Nausea and Vomiting Vancomycin HCl (Vancomycin Hcl 125 Mg Capsule) 125 mg PO Q6H [facility] Last Admin: 07/25/23 09:19 Dose: 125 mg Documented By: EDUAR Labs 07/25/23 04:58 07/25/23 04:58 Labs: Laboratory Results - last 24 hr 07/24/23 07/24/23 07/24/23 11:55 12:51 13:31 MCV MCH MCHC RDW Plt Count MPV Absolute Nucleated RBC Nucleated RBC % (auto) PT 13.1 INR 1.1 Anion Gap 13 Estim Creat Clear Calc 112.0 Estimated GFR > 60 Random Glucose 78 Calcium 9.1 Magnesium 2.4 Total Bilirubin 0.6 AST 25 ALT 8 Alkaline Phosphatase 92 Total Protein 7.7 Albumin 3.6 Lipase 19 Stool Occult Blood POSITIVE Stl C. cayetanensis PCR Not Detected Stool Rotavirus A PCR Not Detected Stl Adenov F 40/41 PCR Not Detected Stool Astrovirus (PCR) Not Detected Stool Campylobacter PCR Not Detected Stool Cryptosporidium PCR Not Detected Stl Sh Tox Pr E STEC PCR Not Detected Stool E coli O157 PCR Not applicable Stl Enterotoxigenic E PCR Not Detected Stool EPEC (PCR) Not Detected Stool EAEC (PCR) Not Detected Stl E. histolytica PCR Not Detected Stool Giardia Lamblia PCR Not Detected Stl P. shigelloides PCR Not Detected Stool Salmonella PCR Not Detected Stool Sapovirus (PCR) Not Detected Stl Shigella/EIEC PCR Not Detected St Y.enterocolitica PCR Not Detected Stool Vibrio (PCR) Not Detected Stl Vibrio cholerae PCR Not Detected Stl Norovirus GI/GII PCR Not Detected C. difficile Tox B Gene POSITIVE A* C. difficile Toxin A&B Negative C. difficile Interpret SEE NOTE Blood Type B Positive Antibody Screen NEGATIVE 07/25/23 04:58 MCV 94.5 MCH 31.2 MCHC 33.1 RDW 13.9 Plt Count 170 MPV 10.7 Absolute Nucleated RBC 0.000 Nucleated RBC % (auto) 0.0 PT INR Anion Gap 11 L Estim Creat Clear Calc 126.7 Estimated GFR > 60 Random Glucose 87 Calcium 8.3 L D Magnesium Total Bilirubin AST ALT Alkaline Phosphatase Total Protein Albumin Lipase Stool Occult Blood Stl C. cayetanensis PCR Stool Rotavirus A PCR Stl Adenov F 40/41 PCR Stool Astrovirus (PCR) Stool Campylobacter PCR Stool Cryptosporidium PCR Stl Sh Tox Pr E STEC PCR Stool E coli O157 PCR Stl Enterotoxigenic E PCR Stool EPEC (PCR) Stool EAEC (PCR) Stl E. histolytica PCR Stool Giardia Lamblia PCR Stl P. shigelloides PCR Stool Salmonella PCR Stool Sapovirus (PCR) Stl Shigella/EIEC PCR St Y.enterocolitica PCR Stool Vibrio (PCR) Stl Vibrio cholerae PCR Stl Norovirus GI/GII PCR C. difficile Tox B Gene C. difficile Toxin A&B C. difficile Interpret Blood Type Antibody Screen Microbiology Microbiology Results: Microbiology 07/24/23 Unknown Urine Culture - Final Urine clean catch - Urine means top Assessment and Plan (1) C. difficile colitis: Status: Acute Plan A 68-year-old male with PMH of AFib, on Eliquis, hypertension, colostomy, Lt BKA, depression, paraplegia, chronic indwelling Barth catheter since 2020 who presents from [facility] for bloody bowel movements and inability to pass urine. GI bleed Likely from colitis CT scan GI consult pending stable HH C.Diff colitis No pain\fever but has bloody bowel movement GI consult pending continue oral vancomycin total 10 days in light of diarrhea Barth catheter related UTI Could be colonized afebrile, no leukocytosis Rocephin AFib hold Eliquis in light of GI bleed and possible GI procedure continue diltiazem hypertension continue diltiazem DVT prophylaxis SCDs in the setting of GIB Attending Dr. Douglas Patient requires continued hospitalization for treatment a GI bleed and specialty consultation Time Spent With Patient Time: Total time managing care of this patient today ____ minutes. Quality Stroke Does the patient have a stroke diagnosis?: No VTE Prior VTE?: No VTE Risk Level:: Medical - moderate - high VTE Device Contraindication: N/A - Device Ordered VTE Drug Contraindication: Treatment Not Indicated
[2023-07-25] MEDS: cefTRIAXone sodium 1 GM in 0.9 % Sodium Chloride 50 ML IV (15:53)
[2023-07-26 03:44] VITALS: BP 148/71; PULSE 76; RESP 20; TEMP 36.2; O2SAT 98
[2023-07-26] MEDS: Sodium Chloride 0.45 % 1,000 ML 100 ML IVCONT (05:44)
[2023-07-26] MEDS: vancomycin HCL 125 MG CAPSULE PO ×4 (05:46→21:23)
[2023-07-26 07:56] VITALS: BP 159/77; PULSE 83; RESP 18; TEMP 36.1; O2SAT 99
--- NOTE | 2023-07-26 09:38 | HO.PM.IMPN ---
Subjective Subjective Date of Service: 07/26/23 Review of Systems follow up GI bleed some diffuse abdominal pain but eating breakfast Physical Exam Vital Signs: Vital Signs: Last Vital Signs Temp 96.9 F 07/26/23 07:56 Pulse 83 07/26/23 07:56 Resp 18 07/26/23 07:56 BP 159/77 H 07/26/23 07:56 Pulse Ox 99 07/26/23 07:56 O2 Del Method Room Air 07/26/23 07:56 BMI result Body Mass Index 27.4 Appearing in no acute distress lung sounds are clear to auscultation heart regular rate rhythm, clear S1, S2 positive bowel sounds, abdomen is soft, nontender, colostomy barth catheter neuro patient is alert x3, no focal deficits Left BKA, right ankle contracture, abnormality in dorsiflexion Objective Data Active Medications Acetaminophen (Acetaminophen 325 Mg Tablet) 650 mg PO Q6H PRN PRN Reason: Pain, Mild (Pain Scale 1-3) Atorvastatin Calcium (Atorvastatin Calcium 20 Mg Tablet) 20 mg PO DAILY [facility] Fluoxetine HCl (Fluoxetine Hcl 20 Mg Capsule) 40 mg PO DAILY [facility] Furosemide (Furosemide 20 Mg Tablet) 20 mg PO BID [facility]; Protocol Ceftriaxone Sodium 1 gm/ (Sodium Chloride) 50 mls @ 100 mls/hr IV Q24H [facility] Last Infusion: 07/25/23 16:24 Dose: Infused Documented By: EDUAR Metoprolol Tartrate (Metoprolol Tartrate 12.5 Mg Halftab) 12.5 mg PO BID [facility]; Protocol Morphine Sulfate (Morphine Sulfate 4 Mg/Ml Cartridge) 2 mg IVPUSH Q4H PRN; Protocol PRN Reason: Pain, Severe (Pain Scale 7-10) Last Admin: 07/25/23 15:51 Dose: 2 mg Documented By: PODMORP Non-Formulary Medication (Vibegron [Gemtesa]) 75 mg PO DAILY [facility] Ondansetron HCl (Ondansetron Hcl 4 Mg/2 Ml Vial) 4 mg IVPUSH Q8H PRN PRN Reason: Nausea and Vomiting Vancomycin HCl (Vancomycin Hcl 125 Mg Capsule) 125 mg PO Q6H [facility] Last Admin: 07/26/23 05:46 Dose: 125 mg Documented By: TORIPSM Labs 07/25/23 04:58 07/25/23 04:58 Microbiology Microbiology Results: Microbiology 07/24/23 Unknown Urine Culture - Final Urine clean catch - Urine means top Assessment and Plan (1) C. difficile colitis: Status: Acute Plan A 68-year-old male with PMH of AFib, on Eliquis, hypertension, colostomy, Lt BKA, depression, paraplegia, chronic indwelling Barth catheter since 2020 who presents from [facility] for bloody bowel movements and inability to pass urine. 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 Douglas Patient requires continued hospitalization for treatment a GI bleed and specialty consultation Quality Stroke Does the patient have a stroke diagnosis?: No VTE Prior VTE?: No VTE Risk Level:: Medical - moderate - high VTE Device Contraindication: N/A - Device Ordered VTE Drug Contraindication: Treatment Not Indicated
[2023-07-26] MEDS: Furosemide 20 MG TABLET PO ×2 (09:53→21:23)
[2023-07-26] MEDS: Metoprolol Tartrate 12.5 MG HALFTAB PO ×2 (09:53→21:23)
[2023-07-26] MEDS: FLUoxetine HCl 20 MG CAPSULE 40 MG PO (09:53)
[2023-07-26 11:06] LABS: Erythrocyte Sedimentation Rate 12 MM/HR (0-15)
[2023-07-26 11:38] VITALS: BP 148/74; PULSE 70; RESP 18; TEMP 36.4; O2SAT 95
[2023-07-26 15:14] VITALS: BP 114/59; PULSE 52; RESP 20; TEMP 36.7; O2SAT 98
[2023-07-26] MEDS: cefTRIAXone sodium 1 GM in 0.9 % Sodium Chloride 50 ML IV (15:17)
--- NOTE | 2023-07-26 15:17 | MHC.CM.PN ---
EMR reviewed and per MD rounds, pt is not medically cleared for D/C due to pending GI consult. CM will continue to follow.
[2023-07-26] MEDS: Morphine Sulfate 4 MG/ML CARTRIDGE 2 MG IVPUSH (15:58)
--- NOTE | 2023-07-26 16:34 | PM.EVENT ---
Event Note Date of Service: 07/26/23 Event Note: GI consult dictated Colonoscopy planned 07/28 for further evaluation of go bleeding and ct abnormalities. C diff results c/w colonization per lab. Time Spent With Patient Time: Total time managing care of this patient today ____ minutes.
[2023-07-26] MEDS: PEG 3350/Na Sulf,Bicarb,Cl/KCL 4,000 ML SOLN.RECON 4000 ML PO (17:28)
[2023-07-26 19:24] VITALS: BP 127/58; PULSE 69; RESP 20; TEMP 36.3; O2SAT 97
--- NOTE | 2023-07-26 20:19 | CONS_ITS ---
DATE OF SERVICE: 07/26/2023 REFERRING PHYSICIAN: Marcie Hammer NP REASON FOR CONSULTATION: GI bleeding and colitis. HISTORY OF PRESENT ILLNESS: The patient is a pleasant 68-year-old man, who was admitted to the hospital on 07/24 after presenting to the emergency room with blood in his colostomy bag, frequent bowel movements, and difficulty passing urine. He has a history of undergoing previous colostomy, approximately 2 years ago for frequent diarrhea and pressure ulcers at another facility. He developed bloody liquid stools approximately 2 days prior to admission, and presented to the emergency room. He also had some difficulty with urination as he does have an indwelling Napier catheter. He is on Eliquis because of atrial fibrillation, and states his last dose of this medication was approximately 5 days ago. He denies a prior history of rectal bleeding. He was evaluated in the emergency department and the imaging was obtained with CT scanning, which is reviewed. This is interpreted as showing no definite evidence of active GI bleeding. Diverticulosis of the colon was seen and there was wall thickening of the distal left colon with fat stranding, suggestive of mild colitis or diverticulitis. There was also a left parastomal hernia, containing small bowel. PAST MEDICAL HISTORY: 1. Atrial fibrillation. 2. Repair of thoracic and upper abdominal aortic aneurysm with a 2nd lower aneurysm that was repaired in [place]. 3. Hyperlipidemia. 4. Hypertension. 5. Depression. 6. COVID infection. 7. Embolism with left BKA. 8. Colostomy placement as above. 9. Colonoscopy at age 48, negative for the patient. 10. Cholecystectomy. CURRENT MEDICATIONS: His current medication list is reviewed in the chart. ALLERGIES: THERE ARE NONE REPORTED. FAMILY HISTORY: This is negative for GI malignancy per the patient in any primary family relatives. SOCIAL HISTORY: He denies substance abuse. REVIEW OF SYSTEMS: SKIN: No pruritus. HEENT: Negative. CARDIOPULMONARY: He denies shortness of breath or chest pain. GASTROINTESTINAL: As above. GENITOURINARY: Negative. NEUROPSYCHIATRIC: Negative. PHYSICAL EXAMINATION: GENERAL: Shows a pleasant male, lying comfortably in bed. VITAL SIGNS: Reviewed in the electronic medical record and are stable. SKIN: Anicteric. HEENT: Shows no scleral icterus. NECK: Without lymphadenopathy or thyromegaly. LUNGS: Clear. HEART: Shows regular rate and rhythm. S1, S2. No murmur. ABDOMEN: Soft without focal masses. Colostomy is present in the left lower quadrant. There does appear to recent a small hernia around the colostomy. There is no tenderness. There is some small bloody mucus in the bag. EXTREMITIES: Show a contracture on the right lower extremity and surgical changes on the left lower extremity. IMPRESSION: Gastrointestinal bleeding with abnormal CT scan as above. The differential diagnosis for the bleeding includes diverticular bleeding, colitis, diverticulitis, and tumors. As he will need to go back on Eliquis, I discussed colonoscopy with the patient for further evaluation. He understands risks and benefits and agrees to proceed. This will be arranged for 07/28, after a bowel prep. His Eliquis has been on hold since Monday. I discussed risks and benefits of the procedure with him. He understands and agrees to proceed. Old records have been requested regarding the patient's previous surgery. In the meantime, I recommend monitoring his hematocrit. Stool testing has shown no active infection and his C. diff studies were consistent with colonization, according to his lab results. Thanks for asking me to see him. I will follow him in the hospital with you. MD KENA Martinez/ESA / [phone]
[2023-07-26 22:38] VITALS: BP 132/68; PULSE 56; RESP 20; TEMP 36.2; O2SAT 98
--- NOTE | 2023-07-26 23:39 | PM.EVENT ---
Event Note Date of Service: 07/26/23 Event Note: had some 3 sec pauses at night around 1135, will hold metoporlol, cardio eval Time Spent With Patient Time: Total time managing care of this patient today ____ minutes.
--- NOTE | 2023-07-27 00:13 | PC.NURSE ---
Assumed care 0:00 midnight 07/27.
[2023-07-27 03:09] VITALS: BP 129/58; PULSE 51; RESP 20; TEMP 36.3; O2SAT 97
[2023-07-27] MEDS: vancomycin HCL 125 MG CAPSULE PO ×4 (03:20→22:09)
[2023-07-27 07:22] VITALS: BP 124/66; PULSE 75; RESP 20; TEMP 36.6; O2SAT 98
[2023-07-27] MEDS: FLUoxetine HCl 20 MG CAPSULE 40 MG PO (08:51)
[2023-07-27] MEDS: Atorvastatin Calcium 20 MG TABLET PO (08:51)
[2023-07-27] MEDS: Acetaminophen 325 MG TABLET 650 MG PO ×2 (08:52→16:59)
[2023-07-27] MEDS: Furosemide 20 MG TABLET PO ×2 (08:52→22:09)
--- NOTE | 2023-07-27 09:28 | P.PNGI_ITS ---
Subjective Subjective Date of Service: 07/27/23 Interval History: He reports some abdominal distension but no pain or obstructive symptoms. On clear liquids, bowel prep later today. No lower gi bleeding. Critical Care Time (minutes): 0 Physical Exam 2 Vital Signs: Vital Signs: Last Vital Signs Temp 97.9 F 07/27/23 07:22 Pulse 75 07/27/23 07:22 Resp 20 07/27/23 07:22 BP 124/66 07/27/23 07:22 Pulse Ox 98 07/27/23 07:22 O2 Del Method Room Air 07/27/23 07:22 BMI result Body Mass Index 27.4 GI: Other: abdomen is soft and nontender. brownish liquid in ostomy appliance. Objective Data Labs 07/25/23 04:58 07/25/23 04:58 Labs: Laboratory Results - last 24 hr 07/26/23 10:21 ESR 12 Microbiology Microbiology Results: Microbiology 07/24/23 Unknown Urine clean catch - Urine means top Urine Culture - Final Procedures Date of Service Date of Service: 07/27/23 Progress Note: A&P Assessment and plan (1) Acute GI bleeding: Status: Acute Assessment and Plan: appears stable, no active gi bleeding colonoscopy 07/28 Time Spent With Patient Time: Total time managing care of this patient today ____ minutes. Quality Stroke Does the patient have a stroke diagnosis?: No VTE Prior VTE?: No VTE Risk Level:: Medical - moderate - high VTE Device Contraindication: N/A - Device Ordered VTE Drug Contraindication: Treatment Not Indicated
[2023-07-27 09:34] LABS: MANUAL DIFF FLAG NO
[2023-07-27 09:35] LABS: Basophils Percent Auto 0.7 % (0-2); Eosinophils Absolute Auto 0.2 X10*3/uL (0.0-0.4); Eosinophils Percent Auto 4.1 % (0-4); Hematocrit 39.3 % (42.0-52.0); Hemoglobin 13.2 g/dl (14.0-18.0); Imm Gran Abs Auto 0.03 X10*3/uL (0.00-0.03); Imm Gran Pct Auto 0.5 % (0.0-0.4); Lymphocytes Absolute Auto 1.4 X10*3/uL (1.2-4.9); Lymphocytes Percent Auto 24.8 % (20-40); Mean Corpuscular HGB Conc 33.6 g/dl (31.0-36.0); Mean Corpuscular Hemoglobin 30.9 pg (27.0-33.0); Mean Platelet Volume 10.1 fL (9.4-12.4); Monocytes Absolute Auto 0.5 X10*3/uL (0.1-1.2); Monocytes Percent Auto 8.8 % (2-11); Neutrophils Absolute Auto 3.5 x10*3/uL (2.0-8.3); Neutrophils Percent Auto 61.1 % (45-73); Platelet Count 193 X10*3/uL (160-400); Red Blood Count 4.27 X10*6/uL (4.60-5.80); Red Cell Distribution Width 13.8 % (11.0-16.0); White Blood Count 5.8 X10*3/uL (4.8-10.8)
--- NOTE | 2023-07-27 09:45 | PM.EVENT ---
Event Note Date of Service: 07/28/23 Event Note: GI colonoscopy shows no colitis. 8mm polyp at 65 cm, snared. Diverticulosis, without bleeding Rec: Advance diet f/u bx results ok to restart AC in am Time Spent With Patient Time: Total time managing care of this patient today ____ minutes.
[2023-07-27 09:48] LABS: Anion Gap 12 (12-20); Blood Urea Nitrogen 19 mg/dL (9-16); Calcium 8.7 mg/dL (8.4-10.2); Carbon Dioxide 23 mmol/L (22-29); Chloride 105 mmol/L (96-108); Creatinine Clr Calc Pharmacy 110.1; Estimated Glomerular Filt Rate > 60; Glucose Random 96 mg/dL (60-115); Potassium 4.6 mmol/L (3.3-5.1); Sodium 135 mmol/L (135-145)
--- NOTE | 2023-07-27 11:02 | P.CONCA_ITS ---
History of Present Illness History of Present Illness Date of Service: 07/27/23 Requesting physician: Mara Reyes Chief complaint: GIB, C.Diff, slow afib Narrative: 68-year-old gentleman presenting for GI bleed and C diff. He has chronic atrial fibrillation. He has been noticed to have slow AFib and had a 2nd pause last night. He is completely asymptomatic. Heart rates are in 70s currently. His metoprolol was held. Denying chest discomfort shortness of breath. [facility] Past Medical History Medical History Left below-knee amputee Chronic indwelling Napier catheter Elevated cholesterol Muscle weakness Embolism Atrial fibrillation Essential hypertension Major depressive disorder COVID Surgical History Surgical History S/P colostomy H/O colonoscopy Hx of cholecystectomy History of AAA (abdominal aortic aneurysm) repair Social History Social History Household Members: Caregiver Household Members Other:: SUPER[employer] lives above in different apartment Housing: House Are you a primary adult care provider to a significant other at home: No Do you presently have visiting nurse or other home services: Yes Alcohol intake: former Patient Tobacco Use Status: Former Tobacco user Quit Date: age 48's Tobacco use type: Cigarette Smoked in Last 30 Days: No Patient Interested in Nicotine Replacement: No Patient Given Instructions on How to Stop Smoking: No Use of substances other than those prescribed or required for medical reasons: No Currently Displaying Signs/Symptoms of Drug Intoxication Withdrawal: No Any prior treatment program specific to substance use: No Have you been hit, kicked, punched, or otherwise hurt by someone within the past year? If so, by whom?: No Do you feel safe in your current relationship?: No Current Relationship Is there a partner from a previous relationship who is making you feel unsafe now?: No Advance Directives: Yes Advance Directives on File: Yes Advance Directives Date on File: 04/08/21 Do you have thoughts of harming others: None Do you have a plan to hurt others: No Plan Recently lost weight without trying: No Eating poorly because of decreased appetite: No Nutrition Risks: No Nutritional Risk Poor oral hygiene: No service: No Current occupational status: disabled Meds Allergies Allergy/AdvReac Type Severity Reaction Status Date / Time No Known Allergies Allergy Verified 07/24/23 11:33 [No Known Allergies*] Active Medications: Current Medications Acetaminophen (Acetaminophen 325 Mg Tablet) 650 mg PO Q6H PRN PRN Reason: Pain, Mild (Pain Scale 1-3) Last Admin: 07/27/23 08:52 Dose: 650 mg Atorvastatin Calcium (Atorvastatin Calcium 20 Mg Tablet) 20 mg PO DAILY [facility] Last Admin: 07/27/23 08:51 Dose: 20 mg Fluoxetine HCl (Fluoxetine Hcl 20 Mg Capsule) 40 mg PO DAILY [facility] Last Admin: 07/27/23 08:51 Dose: 40 mg Furosemide (Furosemide 20 Mg Tablet) 20 mg PO BID [facility]; Protocol Last Admin: 07/27/23 08:52 Dose: 20 mg Ceftriaxone Sodium 1 gm/ (Sodium Chloride) 50 mls @ 100 mls/hr IV Q24H [facility] Last Infusion: 07/26/23 15:54 Dose: Infused Metoprolol Tartrate (Metoprolol Tartrate 12.5 Mg Halftab) 12.5 mg PO BID [facility]; Protocol Last Admin: 07/26/23 21:23 Dose: 12.5 mg Morphine Sulfate (Morphine Sulfate 4 Mg/Ml Cartridge) 2 mg IVPUSH Q4H PRN; Protocol PRN Reason: Pain, Severe (Pain Scale 7-10) Last Admin: 07/26/23 15:58 Dose: 2 mg Non-Formulary Medication (Vibegron [Gemtesa]) 75 mg PO DAILY [facility] Ondansetron HCl (Ondansetron Hcl 4 Mg/2 Ml Vial) 4 mg IVPUSH Q8H PRN PRN Reason: Nausea and Vomiting Polyethylene Glycol (Polyethylene Glycol 3350 17 Gm Powd.Pack) 17 gm PO DAILY [facility] Last Admin: 07/27/23 08:52 Dose: Not Given Polyethylene Glycol/Electrolytes (Peg 3350/Na Sulf,Bicarb,Cl/Kcl 4,000 Ml Soln.Recon) 4,000 ml PO ONCE ONE Stop: 07/27/23 13:01 Vancomycin HCl (Vancomycin Hcl 125 Mg Capsule) 125 mg PO Q6H [facility] Stop: 08/03/23 23:59 Last Admin: 07/27/23 08:51 Dose: 125 mg Home Medications Medication Instructions Recorded Confirmed Last Taken Type apixaban 5 mg tablet (Eliquis) 1 tab PO BID 04/07/21 07/25/23 07/24/23 History atorvastatin 20 mg tablet 1 tab PO DAILY 04/07/21 07/25/23 07/24/23 History furosemide 20 mg tablet 1 tab PO BID 04/07/21 07/25/23 07/24/23 History metoprolol tartrate 25 mg tablet 0.5 tab PO BID 07/02/21 07/25/23 07/24/23 History fluoxetine 40 mg capsule 40 mg PO DAILY 07/25/23 07/25/23 07/24/23 History Physical Exam 2 Vital Signs: Vital Signs: Last Vital Signs Temp 97.9 F 07/27/23 07:22 Pulse 75 07/27/23 07:22 Resp 20 07/27/23 07:22 BP 124/66 07/27/23 07:22 Pulse Ox 98 07/27/23 07:22 O2 Del Method Room Air 07/27/23 07:22 BMI result Body Mass Index 27.4 GENERAL APPEARANCE: in no acute distress, pleasant. NECK: no carotid bruit, no jugular venous distention. SKIN: no suspicious lesions, warm and dry. HEART: no murmurs, irregular rate and rhythm. LUNGS: clear to auscultation bilaterally. ABDOMEN: soft, nontender. EXTREMITIES: Left below-knee amputation, right leg contracture. PERIPHERAL PULSES: equal. NEUROLOGIC: No gross deficits, AAO X 3 Objective Labs and Meds 07/27/23 09:15 07/27/23 09:15 Lab results: Laboratory Results - last 24 hr 07/26/23 07/27/23 10:21 09:15 WBC 5.8 RBC 4.27 L Hgb 13.2 L Hct 39.3 L MCV 92.0 MCH 30.9 MCHC 33.6 RDW 13.8 Plt Count 193 MPV 10.1 Immature Gran % (Auto) 0.5 H Neut % (Auto) 61.1 Lymph % (Auto) 24.8 Heard % (Auto) 8.8 Eos % (Auto) 4.1 H Baso % (Auto) 0.7 Lymph # (Auto) 1.4 Heard # (Auto) 0.5 Eos # (Auto) 0.2 Baso # (Auto) 0.0 Abs Immat Gran (auto) 0.03 Absolute Neuts (auto) 3.5 Absolute Nucleated RBC 0.000 Nucleated RBC % (auto) 0.0 ESR 12 Sodium 135 Potassium 4.6 D Chloride 105 Carbon Dioxide 23 Anion Gap 12 BUN 19 H Creatinine 0.61 Estim Creat Clear Calc 110.1 Estimated GFR > 60 Random Glucose 96 Calcium 8.7 Assessment and Plan (1) C. difficile colitis: Status: Acute (2) Atrial fibrillation with slow ventricular response: Status: Acute Plan Pleasant 68-year-old gentleman presenting for C diff colitis. He has permanent atrial fibrillation and has been noticed to have bradycardia at times. He has 3 sec pause last night. He is completely asymptomatic. A 5 seconds or more pauses usually consider significant specially if it is symptomatic. He had a 2nd pause during sleep hours which can be due to increased vagal tone. In any case this is not worrisome currently. He can continue beta-richard as before. Signing off. Thank you for allowing me to participate in the care of your patient. Please feel free to contact me if you have any questions. Procedures Date of Service Date of Service: 07/27/23
[2023-07-27 11:10] VITALS: BP 145/70; PULSE 68; RESP 20; TEMP 36.6; O2SAT 99
--- NOTE | 2023-07-27 12:53 | HO.PM.IMPN ---
Subjective Subjective Date of Service: 07/27/23 Interval History: seen and examined this morning follow up for GI bleeding feeling well, no overnight events no abdominal pain Review of Systems Review of Systems: Yes all other systems are reviewed and are negative Constitutional Constitutional: Denies chills and Denies fever(s) Cardiovascular Cardiovascular: Denies chest pain and Denies dyspnea Respiratory Respiratory: Denies cough and Denies dyspnea Gastrointestinal Gastrointestinal: Denies abdominal pain, Denies nausea and Denies vomiting Physical Exam Vital Signs: Vital Signs: Last Vital Signs Temp 97.8 F 07/27/23 11:10 Pulse 68 07/27/23 11:10 Resp 20 07/27/23 11:10 BP 145/70 H 07/27/23 11:10 Pulse Ox 99 07/27/23 11:10 O2 Del Method Room Air 07/27/23 11:10 BMI result Body Mass Index 27.4 Const: General: cooperative, comfortable, no acute distress, alert and awake Nutritional Appearance: average body habitus Resp: Effort & Inspection: normal respiratory effort, able to speak in complete sentences, no respiratory distress and no use of accessory muscles Cardio: Rate: regular rate GI: Other: soft; non-distended; colostomy with minimal output, parastomal hernia : Other: barth catheter present Extrem: Other: s/p BKA and right ankle contracture Objective Data Active Medications Acetaminophen (Acetaminophen 325 Mg Tablet) 650 mg PO Q6H PRN PRN Reason: Pain, Mild (Pain Scale 1-3) Last Admin: 07/27/23 08:52 Dose: 650 mg Documented By: ZELDA Atorvastatin Calcium (Atorvastatin Calcium 20 Mg Tablet) 20 mg PO DAILY [facility] Last Admin: 07/27/23 08:51 Dose: 20 mg Documented By: ZELDA Fluoxetine HCl (Fluoxetine Hcl 20 Mg Capsule) 40 mg PO DAILY [facility] Last Admin: 07/27/23 08:51 Dose: 40 mg Documented By: ZELDA Furosemide (Furosemide 20 Mg Tablet) 20 mg PO BID [facility]; Protocol Last Admin: 07/27/23 08:52 Dose: 20 mg Documented By: ZELDA Ceftriaxone Sodium 1 gm/ (Sodium Chloride) 50 mls @ 100 mls/hr IV Q24H [facility] Last Infusion: 07/26/23 15:54 Dose: Infused Documented By: MONICA Metoprolol Tartrate (Metoprolol Tartrate 12.5 Mg Halftab) 12.5 mg PO BID [facility]; Protocol Last Admin: 07/26/23 21:23 Dose: 12.5 mg Documented By: KAELAAC Morphine Sulfate (Morphine Sulfate 4 Mg/Ml Cartridge) 2 mg IVPUSH Q4H PRN; Protocol PRN Reason: Pain, Severe (Pain Scale 7-10) Last Admin: 07/26/23 15:58 Dose: 2 mg Documented By: GRAZIC Non-Formulary Medication (Vibegron [Gemtesa]) 75 mg PO DAILY [facility] Ondansetron HCl (Ondansetron Hcl 4 Mg/2 Ml Vial) 4 mg IVPUSH Q8H PRN PRN Reason: Nausea and Vomiting Polyethylene Glycol (Polyethylene Glycol 3350 17 Gm Powd.Pack) 17 gm PO DAILY [facility] Last Admin: 07/27/23 08:52 Dose: Not Given Documented By: ZELDA Non-Admin Reason: Patient Refused Polyethylene Glycol/Electrolytes (Peg 3350/Na Sulf,Bicarb,Cl/Kcl 4,000 Ml Soln.Recon) 4,000 ml PO ONCE ONE Stop: 07/27/23 13:01 Vancomycin HCl (Vancomycin Hcl 125 Mg Capsule) 125 mg PO Q6H [facility] Stop: 08/03/23 23:59 Last Admin: 07/27/23 08:51 Dose: 125 mg Documented By: ZELDA Labs 07/27/23 09:15 07/27/23 09:15 Labs: Laboratory Results - last 24 hr 07/27/23 09:15 MCV 92.0 MCH 30.9 MCHC 33.6 RDW 13.8 Plt Count 193 MPV 10.1 Immature Gran % (Auto) 0.5 H Neut % (Auto) 61.1 Lymph % (Auto) 24.8 [place] % (Auto) 8.8 Eos % (Auto) 4.1 H Baso % (Auto) 0.7 Lymph # (Auto) 1.4 [place] # (Auto) 0.5 Eos # (Auto) 0.2 Baso # (Auto) 0.0 Abs Immat Gran (auto) 0.03 Absolute Neuts (auto) 3.5 Absolute Nucleated RBC 0.000 Nucleated RBC % (auto) 0.0 Anion Gap 12 Estim Creat Clear Calc 110.1 Estimated GFR > 60 Random Glucose 96 Calcium 8.7 Assessment and Plan (1) Acute GI bleeding: Status: Acute Plan This is a 68-year-old male with PMH of AFib on Eliquis, hypertension, colostomy, Lt BKA, depression, paraplegia, chronic indwelling Barth catheter since 2020 who presents from [facility] for bloody bowel movements and inability to pass urine. acute GI bleed Likely from colitis CT scan> no definite evidence of active GI bleeding wall thickening of the left distal colon and stranding suggestive of mild colitis or diverticulitis Continue Rocephin seen by GI consult, plan for colonoscopy 07/28 stable HH C.Diff colitis no fever or leukocytosis cdif PCR + but toxin negative - possible colonization but was started on PO vancomycin for total 10 days in light of diarrhea will discuss with GI if need to continue possible UTI related to chronic indwelling barth urine culture mixed angeline possibly representing colonization afebrile, no leukocytosis on ceftriaxone, ID consult pending 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 Brown Patient requires continued hospitalization for treatment a GI bleed and specialist consultation Quality Stroke Does the patient have a stroke diagnosis?: No VTE Prior VTE?: No VTE Risk Level:: Medical - moderate - high VTE Device Contraindication: N/A - Device Ordered VTE Drug Contraindication: Treatment Not Indicated
[2023-07-27] MEDS: PEG 3350/Na Sulf,Bicarb,Cl/KCL 4,000 ML SOLN.RECON 4000 ML PO (13:22)
[2023-07-27] MEDS: cefTRIAXone sodium 1 GM in 0.9 % Sodium Chloride 50 ML IV (15:02)
[2023-07-27 15:49] VITALS: BP 116/58; PULSE 73; RESP 18; TEMP 36.4; O2SAT 98
[2023-07-27 19:54] VITALS: BP 147/78; PULSE 66; RESP 15; TEMP 36.2; O2SAT 98
[2023-07-27] MEDS: Metoprolol Tartrate 12.5 MG HALFTAB PO (22:10)
[2023-07-28] VITALS (9 sets, daily range): BP systolic 90–144; BP diastolic 56–89; PULSE 58–102; RESP 16–18; TEMP 35.9–37; O2SAT 94–100
[2023-07-28] MEDS: vancomycin HCL 125 MG CAPSULE PO ×2 (04:55→09:13)
[2023-07-28 06:54] LABS: Hemoglobin 12.8 g/dl (14.0-18.0); Mean Corpuscular HGB Conc 33.7 g/dl (31.0-36.0); Mean Corpuscular Hemoglobin 31.1 pg (27.0-33.0); Mean Corpuscular Volume 92.5 fL (80.0-98.0); Mean Platelet Volume 10.6 fL (9.4-12.4); Platelet Count 198 X10*3/uL (160-400); Red Blood Count 4.11 X10*6/uL (4.60-5.80); Red Cell Distribution Width 13.6 % (11.0-16.0)
[2023-07-28] MEDS: Atorvastatin Calcium 20 MG TABLET PO (09:12)
[2023-07-28] MEDS: FLUoxetine HCl 20 MG CAPSULE 40 MG PO (09:12)
[2023-07-28] MEDS: Metoprolol Tartrate 12.5 MG HALFTAB PO ×2 (09:13→20:24)
[2023-07-28] MEDS: Furosemide 20 MG TABLET PO ×2 (09:13→20:24)
--- NOTE | 2023-07-28 11:49 | HO.ANESPROP2 ---
[facility] Active Problems Active Problems: All Active Problems (Updated 07/24/23 @ 20:27 by Isak Arceo) C. difficile colitis (Acute) Acute GI bleeding (Acute) Screening PSA (prostate specific antigen) (Acute) Continuous urine leakage (Acute) Chronic indwelling Napier catheter (Acute) Hypospadias (Acute) Neurogenic bladder (Acute) Atrial fibrillation with slow ventricular response (Acute) Cellulitis (Acute) Decubitus ulcer of sacral area (Acute) Acute urinary retention (Acute) Urinary tract infection (Acute) Past Medical History Medical History Left below-knee amputee Chronic indwelling Napier catheter Elevated cholesterol Muscle weakness Embolism Atrial fibrillation Essential hypertension Major depressive disorder COVID Family History Family history of problems with anesthesia: No Surgical History Surgical History S/P colostomy H/O colonoscopy Hx of cholecystectomy History of AAA (abdominal aortic aneurysm) repair History of Problems with Anesthesia: No Social History Social History Household Members: Caregiver 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 Members Other:: 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 Housing: House Are you a primary physician assistant primary care to a significant other at home: No Do you presently have visiting nurse or other home services: Yes Alcohol intake: former Patient Tobacco Use Status: Former Tobacco user Quit Date: age 48's Tobacco use type: Cigarette Smoked in Last 30 Days: No Patient Interested in Nicotine Replacement: No Patient Given Instructions on How to Stop Smoking: No Use of substances other than those prescribed or required for medical reasons: No Currently Displaying Signs/Symptoms of Drug Intoxication Withdrawal: No Any prior treatment program specific to substance use: No Have you been hit, kicked, punched, or otherwise hurt by someone within the past year? If so, by whom?: No Do you feel safe in your current relationship?: No Current Relationship Is there a partner from a previous relationship who is making you feel unsafe now?: No Are you DNR?: No Advance Directives: Yes Advance Directives on File: Yes Advance Directives Date on File: 04/08/21 Do you have thoughts of harming others: None Do you have a plan to hurt others: No Plan Recently lost weight without trying: No Eating poorly because of decreased appetite: No Nutrition Risks: No Nutritional Risk Poor oral hygiene: No service: No Current occupational status: disabled Meds Allergies Allergy/AdvReac Type Severity Reaction Status Date / Time No Known Allergies Allergy Verified 07/24/23 11:33 [No Known Allergies*] Active Medications: Current Medications Acetaminophen (Acetaminophen 325 Mg Tablet) 650 mg PO Q6H PRN PRN Reason: Pain, Mild (Pain Scale 1-3) Last Admin: 07/27/23 16:59 Dose: 650 mg Atorvastatin Calcium (Atorvastatin Calcium 20 Mg Tablet) 20 mg PO DAILY [facility] Last Admin: 07/28/23 09:12 Dose: 20 mg Fluoxetine HCl (Fluoxetine Hcl 20 Mg Capsule) 40 mg PO DAILY [facility] Last Admin: 07/28/23 09:12 Dose: 40 mg Furosemide (Furosemide 20 Mg Tablet) 20 mg PO BID [facility]; Protocol Last Admin: 07/28/23 09:13 Dose: 20 mg Ceftriaxone Sodium 1 gm/ (Sodium Chloride) 50 mls @ 100 mls/hr IV Q24H [facility] Last Infusion: 07/27/23 16:58 Dose: Infused Metoprolol Tartrate (Metoprolol Tartrate 12.5 Mg Halftab) 12.5 mg PO BID [facility]; Protocol Last Admin: 07/28/23 09:13 Dose: 12.5 mg Morphine Sulfate (Morphine Sulfate 4 Mg/Ml Cartridge) 2 mg IVPUSH Q4H PRN; Protocol PRN Reason: Pain, Severe (Pain Scale 7-10) Last Admin: 07/26/23 15:58 Dose: 2 mg Non-Formulary Medication (Vibegron [Gemtesa]) 75 mg PO DAILY [facility] Ondansetron HCl (Ondansetron Hcl 4 Mg/2 Ml Vial) 4 mg IVPUSH Q8H PRN PRN Reason: Nausea and Vomiting Polyethylene Glycol (Polyethylene Glycol 3350 17 Gm Powd.Pack) 17 gm PO DAILY [facility] Last Admin: 07/28/23 09:09 Dose: Not Given Home Medications Medication Instructions Recorded Confirmed Last Taken Type apixaban 5 mg tablet (Eliquis) 1 tab PO BID 04/07/21 07/25/23 07/24/23 History atorvastatin 20 mg tablet 1 tab PO DAILY 04/07/21 07/25/23 07/24/23 History furosemide 20 mg tablet 1 tab PO BID 04/07/21 07/25/23 07/24/23 History metoprolol tartrate 25 mg tablet 0.5 tab PO BID 07/02/21 07/25/23 07/24/23 History fluoxetine 40 mg capsule 40 mg PO DAILY 07/25/23 07/25/23 07/24/23 History Exam Exam Date and Time: July 28, 2023 1149 Height,Weight and Vital Signs: Height 5 ft 6 in Weight 77.1 kg Last Vital Signs Temp 98.3 F 07/28/23 11:33 Pulse 63 07/28/23 11:33 Resp 16 07/28/23 11:33 BP 96/59 L 07/28/23 11:33 Pulse Ox 100 07/28/23 11:33 O2 Del Method Room Air 07/28/23 11:33 Pertinent Lab Results Pertinent Lab Results: Laboratory Tests 07/24/23 07/24/23 07/24/23 11:55 12:02 12:51 WBC 6.9 RBC 4.42 L Hgb 13.5 L Hct 41.2 L MCV 93.2 MCH 30.5 MCHC 32.8 RDW 13.8 Plt Count 189 MPV 10.1 Immature Gran % (Auto) 0.1 Neut % (Auto) 65.0 Lymph % (Auto) 21.4 [place] % (Auto) 9.2 Eos % (Auto) 3.6 Baso % (Auto) 0.7 Lymph # (Auto) 1.5 [place] # (Auto) 0.6 Eos # (Auto) 0.3 Baso # (Auto) 0.1 Abs Immat Gran (auto) 0.01 Absolute Neuts (auto) 4.5 Absolute Nucleated RBC 0.000 Nucleated RBC % (auto) 0.0 ESR PT INR Sodium 137 Potassium 5.0 Chloride 109 H Carbon Dioxide 20 L Anion Gap 13 BUN 22 H Creatinine 0.60 Estim Creat Clear Calc 112.0 Estimated GFR > 60 Random Glucose 78 Calcium 9.1 Magnesium 2.4 Total Bilirubin 0.6 AST 25 ALT 8 Alkaline Phosphatase 92 Total Protein 7.7 Albumin 3.6 Lipase 19 Urine Color Dark Yellow Urine Appearance Turbid Urine pH >= 9.0 Ur Specific [place] 1.020 Urine Protein 300 (3+) H Urine Glucose (UA) Negative Urine Ketones Negative Urine Blood Moderate (2+) H Urine Nitrite Negative Ur Leukocyte Esterase Large (3+) H Urine RBC >20 H Urine WBC 11-20 H Ur Squamous Epith Cells 6-10 Other Crystals Present Urine Bacteria 4+ Hyaline Casts 0-2 Stool Occult Blood POSITIVE Stl C. cayetanensis PCR Not Detected Stool Rotavirus A PCR Not Detected Stl Adenov F 40/41 PCR Not Detected Stool Astrovirus (PCR) Not Detected Stool Campylobacter PCR Not Detected Stool Cryptosporidium PCR Not Detected Stl Sh Tox Pr E STEC PCR Not Detected Stool E coli O157 PCR Not applicable Stl Enterotoxigenic E PCR Not Detected Stool EPEC (PCR) Not Detected Stool EAEC (PCR) Not Detected Stl E. histolytica PCR Not Detected Stool Giardia Lamblia PCR Not Detected Stl P. shigelloides PCR Not Detected Stool Salmonella PCR Not Detected Stool Sapovirus (PCR) Not Detected Stl Shigella/EIEC PCR Not Detected St Y.enterocolitica PCR Not Detected Stool Vibrio (PCR) Not Detected Stl Vibrio cholerae PCR Not Detected Stl Norovirus GI/GII PCR Not Detected C. difficile Tox B Gene POSITIVE A* C. difficile Toxin A&B Negative C. difficile Interpret SEE NOTE COVID-19 (CHRISTINE) Negative COVID-19 Clin Com See Note Blood Type Antibody Screen 07/24/23 07/25/23 07/26/23 13:31 04:58 10:21 WBC 7.2 RBC 3.81 L Hgb 11.9 L Hct 36.0 L MCV 94.5 MCH 31.2 MCHC 33.1 RDW 13.9 Plt Count 170 MPV 10.7 Immature Gran % (Auto) Neut % (Auto) Lymph % (Auto) [place] % (Auto) Eos % (Auto) Baso % (Auto) Lymph # (Auto) [place] # (Auto) Eos # (Auto) Baso # (Auto) Abs Immat Gran (auto) Absolute Neuts (auto) Absolute Nucleated RBC 0.000 Nucleated RBC % (auto) 0.0 ESR 12 PT 13.1 INR 1.1 Sodium 136 Potassium 3.8 D Chloride 109 H Carbon Dioxide 20 L Anion Gap 11 L BUN 20 H Creatinine 0.53 Estim Creat Clear Calc 126.7 Estimated GFR > 60 Random Glucose 87 Calcium 8.3 L D Magnesium Total Bilirubin AST ALT Alkaline Phosphatase Total Protein Albumin Lipase Urine Color Urine Appearance Urine pH Ur Specific [place] Urine Protein Urine Glucose (UA) Urine Ketones Urine Blood Urine Nitrite Ur Leukocyte Esterase Urine RBC Urine WBC Ur Squamous Epith Cells Other Crystals Urine Bacteria Hyaline Casts Stool Occult Blood Stl C. cayetanensis PCR Stool Rotavirus A PCR Stl Adenov F 40/41 PCR Stool Astrovirus (PCR) Stool Campylobacter PCR Stool Cryptosporidium PCR Stl Sh Tox Pr E STEC PCR Stool E coli O157 PCR Stl Enterotoxigenic E PCR Stool EPEC (PCR) Stool EAEC (PCR) Stl E. histolytica PCR Stool Giardia Lamblia PCR Stl P. shigelloides PCR Stool Salmonella PCR Stool Sapovirus (PCR) Stl Shigella/EIEC PCR St Y.enterocolitica PCR Stool Vibrio (PCR) Stl Vibrio cholerae PCR Stl Norovirus GI/GII PCR C. difficile Tox B Gene C. difficile Toxin A&B C. difficile Interpret COVID-19 (CHRISTINE) COVID-19 Clin Com Blood Type B Positive Antibody Screen NEGATIVE 07/27/23 07/28/23 09:15 06:19 WBC 5.8 6.0 RBC 4.27 L 4.11 L Hgb 13.2 L 12.8 L Hct 39.3 L 38.0 L MCV 92.0 92.5 MCH 30.9 31.1 MCHC 33.6 33.7 RDW 13.8 13.6 Plt Count 193 198 MPV 10.1 10.6 Immature Gran % (Auto) 0.5 H Neut % (Auto) 61.1 Lymph % (Auto) 24.8 [place] % (Auto) 8.8 Eos % (Auto) 4.1 H Baso % (Auto) 0.7 Lymph # (Auto) 1.4 [place] # (Auto) 0.5 Eos # (Auto) 0.2 Baso # (Auto) 0.0 Abs Immat Gran (auto) 0.03 Absolute Neuts (auto) 3.5 Absolute Nucleated RBC 0.000 0.000 Nucleated RBC % (auto) 0.0 0.0 ESR PT INR Sodium 135 Potassium 4.6 D Chloride 105 Carbon Dioxide 23 Anion Gap 12 BUN 19 H Creatinine 0.61 Estim Creat Clear Calc 110.1 Estimated GFR > 60 Random Glucose 96 Calcium 8.7 Magnesium Total Bilirubin AST ALT Alkaline Phosphatase Total Protein Albumin Lipase Urine Color Urine Appearance Urine pH Ur Specific [place] Urine Protein Urine Glucose (UA) Urine Ketones Urine Blood Urine Nitrite Ur Leukocyte Esterase Urine RBC Urine WBC Ur Squamous Epith Cells Other Crystals Urine Bacteria Hyaline Casts Stool Occult Blood Stl C. cayetanensis PCR Stool Rotavirus A PCR Stl Adenov F 40/41 PCR Stool Astrovirus (PCR) Stool Campylobacter PCR Stool Cryptosporidium PCR Stl Sh Tox Pr E STEC PCR Stool E coli O157 PCR Stl Enterotoxigenic E PCR Stool EPEC (PCR) Stool EAEC (PCR) Stl E. histolytica PCR Stool Giardia Lamblia PCR Stl P. shigelloides PCR Stool Salmonella PCR Stool Sapovirus (PCR) Stl Shigella/EIEC PCR St Y.enterocolitica PCR Stool Vibrio (PCR) Stl Vibrio cholerae PCR Stl Norovirus GI/GII PCR C. difficile Tox B Gene C. difficile Toxin A&B C. difficile Interpret COVID-19 (CHRISTINE) COVID-19 Clin Com Blood Type Antibody Screen Airway Mallampati Class: III TM Dist: >3cm Neck ROM: Full Loose/Missing/Broken Teeth: Yes and Upper Assessment and Plan Assessment Anesthesia Assessment: Anesthesia Plan Discussed and Chart Reviewed Final Anesthetic Review Family History of Problems with Anesthesia: No History of Problems with Anesthesia: No NPO: Yes ASA Class: III Final Preanesthetic Review: No Changes in Pt Med Stat, Meds/Allgs Chart Reviewed, Consent Obtained/Reviewed and Anes Risks/Benef Reviewed Patient Risk: Intermediate Procedure Risk: Low Anesthetic Plan Anesthetic Plan: MAC: Disposition: Standard PACU
--- NOTE | 2023-07-28 13:40 | PM.OP ---
Brief Operative Note Date of Service: 07/28/23 Pre-op diagnosis: gi bleeding Post-op diagnosis: same Procedure: colonoscopy Surgeon: Tito Man MD Was an Squad Sergeant used for this Procedure?: No Estimated blood loss (mL): 0 Pathology: other Condition: stable Disposition: PACU
[2023-07-28] MEDS: cefTRIAXone sodium 1 GM in 0.9 % Sodium Chloride 50 ML IV (14:20)
--- NOTE | 2023-07-28 14:28 | OP_ITS ---
DATE OF SERVICE: 07/28/2023 SURGEON: Tito Man MD INDICATIONS: GI bleeding. PREOPERATIVE DIAGNOSIS: POSTOPERATIVE DIAGNOSIS: PROCEDURE PERFORMED: Colonoscopy to the terminal ileum via colostomy and flexible sigmoidoscopy of retained rectum. ESTIMATED BLOOD LOSS: COMPLICATIONS: ANESTHESIA: Monitored anesthesia care. ASSISTANTS: SPECIMENS: DESCRIPTION OF PROCEDURE: A history and physical was performed. The risks and benefits of the procedure were explained to the patient. Informed consent was obtained. The patient was placed in the supine position. Digital examination with the small finger of the colostomy was normal. The Olympus pediatric video colonoscope was introduced into the colostomy and advanced to the cecum. The cecum was identified by transillumination, palpation, and identification of ileocecal valve. Examination was performed. The scope was removed. After the colonoscopy, he was positioned on his right side. Digital rectal exam was performed and some stool was noted in the retained rectum. The Olympus pediatric video colonoscope was introduced into the rectum, but could only be advanced approximately 5 cm due to the formed stool. Examination was performed. The scope was removed. He tolerated the procedure well and was returned to the recovery area in stable condition. FINDINGS: The terminal ileum was briefly examined and appeared normal visualized colonic mucosa in the colostomy was normal extending from the cecum to the ostomy. There was diverticulosis of the lower part of the colon. A single polyp measuring 8 mm was removed with a hot snare at 65 cm. No other polyps were identified. There was no colitis. There was no bleeding. Examination of the retained rectum was limited due to formed stool. There appeared to be no polyps or bleeding. IMPRESSION: 1. Colon polyp. 2. Diverticulosis. RECOMMENDATION: 1. Follow up the biopsy results. 2. Anticoagulation may be started in the morning. MD KENA Martinez/ESA / [id number] MTDConcha
--- NOTE | 2023-07-28 15:50 | P.PNIM_ITS ---
Subjective Subjective Date of Service: 07/28/23 Interval History: seen and examined this morning follow up for possible GI bleeding no overnight events drinking prep on evaluation, no abdominal pain Review of Systems follow up GI bleed some diffuse abdominal pain but eating breakfast Review of Systems: Yes all other systems are reviewed and are negative Constitutional Constitutional: Denies chills and Denies fever(s) Cardiovascular Cardiovascular: Denies chest pain and Denies dyspnea Respiratory Respiratory: Denies cough and Denies dyspnea Gastrointestinal Gastrointestinal: Denies abdominal pain Physical Exam 2 Vital Signs: Vital Signs: Last Vital Signs Temp 97.2 F 07/28/23 15:09 Pulse 102 H 07/28/23 15:09 Resp 18 07/28/23 15:09 BP 140/89 H 07/28/23 15:09 Pulse Ox 94 07/28/23 15:09 O2 Del Method Room Air 07/28/23 15:09 BMI result Body Mass Index 27.4 Const: General: cooperative, comfortable, no acute distress, alert and awake Nutritional Appearance: average body habitus Resp: Effort & Inspection: normal respiratory effort, able to speak in complete sentences, no respiratory distress and no use of accessory muscles Cardio: Rate: regular rate GI: Other: soft; non-distended; colostomy with minimal output, parastomal hernia : Other: barth catheter present Extrem: Other: s/p BKA and right ankle contracture Objective Data Active Medications Acetaminophen (Acetaminophen 325 Mg Tablet) 650 mg PO Q6H PRN PRN Reason: Pain, Mild (Pain Scale 1-3) Last Admin: 07/27/23 16:59 Dose: 650 mg Documented By: ZELDA Atorvastatin Calcium (Atorvastatin Calcium 20 Mg Tablet) 20 mg PO DAILY [facility] Last Admin: 07/28/23 09:12 Dose: 20 mg Documented By: DESIREE Fluoxetine HCl (Fluoxetine Hcl 20 Mg Capsule) 40 mg PO DAILY [facility] Last Admin: 07/28/23 09:12 Dose: 40 mg Documented By: DESIREE Furosemide (Furosemide 20 Mg Tablet) 20 mg PO BID [facility]; Protocol Last Admin: 07/28/23 09:13 Dose: 20 mg Documented By: DESIREE Ceftriaxone Sodium 1 gm/ (Sodium Chloride) 50 mls @ 100 mls/hr IV Q24H [facility] Last Infusion: 07/28/23 15:02 Dose: Infused Documented By: DESIREE Metoprolol Tartrate (Metoprolol Tartrate 12.5 Mg Halftab) 12.5 mg PO BID [facility]; Protocol Last Admin: 07/28/23 09:13 Dose: 12.5 mg Documented By: DESIREE Morphine Sulfate (Morphine Sulfate 4 Mg/Ml Cartridge) 2 mg IVPUSH Q4H PRN; Protocol PRN Reason: Pain, Severe (Pain Scale 7-10) Last Admin: 07/26/23 15:58 Dose: 2 mg Documented By: GRAZIC Non-Formulary Medication (Vibegron [Gemtesa]) 75 mg PO DAILY [facility] Ondansetron HCl (Ondansetron Hcl 4 Mg/2 Ml Vial) 4 mg IVPUSH Q8H PRN PRN Reason: Nausea and Vomiting Polyethylene Glycol (Polyethylene Glycol 3350 17 Gm Powd.Pack) 17 gm PO DAILY [facility] Last Admin: 07/28/23 09:09 Dose: Not Given Documented By: DESIREE Non-Admin Reason: Patient Refused Labs 07/28/23 06:19 07/27/23 09:15 Labs: Laboratory Results - last 24 hr 07/28/23 06:19 MCV 92.5 MCH 31.1 MCHC 33.7 RDW 13.6 Plt Count 198 MPV 10.6 Absolute Nucleated RBC 0.000 Nucleated RBC % (auto) 0.0 Assessment and Plan (1) Diverticulosis: Status: Acute Plan This is a 68-year-old male with PMH of AFib on Eliquis, hypertension, colostomy, Lt BKA, depression, paraplegia, chronic indwelling Barth catheter since 2020 who presents from [facility] for bloody bowel movements and inability to pass urine. acute GI bleed CT scan> no definite evidence of active GI bleeding wall thickening of the left distal colon and stranding suggestive of mild colitis or diverticulitis seen by GI consult, s/p colonoscopy today - likely bleeding r/t diverticulitis able to resume AC tommorrow advance diet stable C.Diff colitis ruled out no fever or leukocytosis cdif PCR + but toxin negative indicating colonization was initially started on PO vancomycin due to diarrhea on admission, but no evidence of cdif on colonoscopy and no further diarrhea, will d/c po vanco possible UTI related to chronic indwelling barth urine culture mixed angeline likely representing colonization afebrile, no leukocytosis initially treated with ceftriaxone, discussed with ID, will d/c abx 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 Douglas Patient requires continued hospitalization for treatment a GI bleed and specialist consultation Quality Stroke Does the patient have a stroke diagnosis?: No VTE Prior VTE?: No VTE Risk Level:: Medical - moderate - high VTE Device Contraindication: N/A - Device Ordered VTE Drug Contraindication: Treatment Not Indicated
--- NOTE | 2023-07-28 16:10 | MHC.CM.PN ---
EMR reviewed and per MD rounds, pt is not medically cleared for D/C due to colonoscopy today and pending speech eval. CM will continue to follow.
--- NOTE | 2023-07-28 16:23 | W.PM.IDCN ---
History of Present Illness Data of Consult Service Date: 07/26/23 Requesting physician: Mara Reyes Primary Care Provider: Bolivar Harris MD HPI Reason for consult: possible pneumonia versus C diff He presents with weakness and abdominal discomfort for two days,worsening. He has no diarrhea at this time. 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 Members Other:: 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 Housing: House Are you a primary hospice care consultant to a significant other at home: No Do you presently have visiting nurse or other home services: Yes Alcohol intake: former Patient Tobacco Use Status: Former Tobacco user Quit Date: age 48's Tobacco use type: Cigarette Smoked in Last 30 Days: No Patient Interested in Nicotine Replacement: No Patient Given Instructions on How to Stop Smoking: No Use of substances other than those prescribed or required for medical reasons: No Currently Displaying Signs/Symptoms of Drug Intoxication Withdrawal: No Any prior treatment program specific to substance use: No Have you been hit, kicked, punched, or otherwise hurt by someone within the past year? If so, by whom?: No Do you feel safe in your current relationship?: No Current Relationship Is there a partner from a previous relationship who is making you feel unsafe now?: No Are you DNR?: No Advance Directives: Yes Advance Directives on File: Yes Advance Directives Date on File: 04/08/21 Do you have thoughts of harming others: None Do you have a plan to hurt others: No Plan Recently lost weight without trying: No Eating poorly because of decreased appetite: No Nutrition Risks: No Nutritional Risk Poor oral hygiene: No service: No Current occupational status: disabled Meds Allergies Allergy/AdvReac Type Severity Reaction Status Date / Time No Known Allergies Allergy Verified 07/24/23 11:33 [No Known Allergies*] Active Medications: Current Medications Acetaminophen (Acetaminophen 325 Mg Tablet) 650 mg PO Q6H PRN PRN Reason: Pain, Mild (Pain Scale 1-3) Last Admin: 07/27/23 16:59 Dose: 650 mg Apixaban (Apixaban 5 Mg Tablet) 5 mg PO BID [facility] Atorvastatin Calcium (Atorvastatin Calcium 20 Mg Tablet) 20 mg PO DAILY [facility] Last Admin: 07/28/23 09:12 Dose: 20 mg Fluoxetine HCl (Fluoxetine Hcl 20 Mg Capsule) 40 mg PO DAILY [facility] Last Admin: 07/28/23 09:12 Dose: 40 mg Furosemide (Furosemide 20 Mg Tablet) 20 mg PO BID [facility]; Protocol Last Admin: 07/28/23 09:13 Dose: 20 mg Metoprolol Tartrate (Metoprolol Tartrate 12.5 Mg Halftab) 12.5 mg PO BID [facility]; Protocol Last Admin: 07/28/23 09:13 Dose: 12.5 mg Morphine Sulfate (Morphine Sulfate 4 Mg/Ml Cartridge) 2 mg IVPUSH Q4H PRN; Protocol PRN Reason: Pain, Severe (Pain Scale 7-10) Last Admin: 07/26/23 15:58 Dose: 2 mg Non-Formulary Medication (Vibegron [Gemtesa]) 75 mg PO DAILY [facility] Ondansetron HCl (Ondansetron Hcl 4 Mg/2 Ml Vial) 4 mg IVPUSH Q8H PRN PRN Reason: Nausea and Vomiting Polyethylene Glycol (Polyethylene Glycol 3350 17 Gm Powd.Pack) 17 gm PO DAILY [facility] Last Admin: 07/28/23 09:09 Dose: Not Given Home Medications Medication Instructions Recorded Confirmed Last Taken Type apixaban 5 mg tablet (Eliquis) 1 tab PO BID 04/07/21 07/25/23 07/24/23 History atorvastatin 20 mg tablet 1 tab PO DAILY 04/07/21 07/25/23 07/24/23 History furosemide 20 mg tablet 1 tab PO BID 04/07/21 07/25/23 07/24/23 History metoprolol tartrate 25 mg tablet 0.5 tab PO BID 07/02/21 07/25/23 07/24/23 History fluoxetine 40 mg capsule 40 mg PO DAILY 07/25/23 07/25/23 07/24/23 History Physical Exam Vital Signs: Vital Signs: Last Vital Signs Temp 97.2 F 07/28/23 15:09 Pulse 102 H 07/28/23 15:09 Resp 18 07/28/23 15:09 BP 140/89 H 07/28/23 15:09 Pulse Ox 94 07/28/23 15:09 O2 Del Method Room Air 07/28/23 15:09 BMI result Body Mass Index 27.4 Const: General: cooperative HEENT: Head: Yes normal to inspection Face and sinus: Yes normal facial exam Mouth: Normal oral and palatal mucosa present Teeth and gingiva: dentition normal Eyes: General: appearance normal, both eyes and all related structures Pupils: Equal, round and reactive pupils present Resp: Effort & Inspection: normal respiratory effort Cardio: Rate: regular rate Rhythm: regular rhythm GI: Palpation (GI): Soft to palpation and nontender : General: Yes no CVA tenderness Back/Spine/Pelvis: Back: no CVA tenderness Skin: General skin exam: no rashes or lesions noted Neuro: General: moves all extremities Cranial nerves: Yes Equal, round and reactive pupils present Extrem: General: Yes normal to inspection Psych: Appearance: grossly normal Results Labs 07/28/23 06:19 07/27/23 09:15 Labs: Short CBC 07/28/23 Range/Units 06:19 WBC 6.0 (4.8-10.8) X10*3/uL Hgb 12.8 L (14.0-18.0) g/dl Hct 38.0 L (42.0-52.0) % Plt Count 198 (160-400) X10*3/uL Microbiology Microbiology Results: Microbiology 07/24/23 Unknown Urine clean catch - Urine means top Urine Culture - Final Assessment and Plan (1) Chronic indwelling Napier catheter: Status: Acute There are no signs of urosepsis at this time. There are no signs of Cdiff diarrhea at this time. (2) Acute GI bleeding: Status: Acute Plan Stop Ceftriaxone and Zmax and stop Cdiff treatment with Vancomycin.
[2023-07-28] MEDS: Acetaminophen 325 MG TABLET 650 MG PO (17:11)
--- NOTE | 2023-07-28 17:16 | MHC.SL.SWA ---
Speech Pathologist Impression: Risk of aspiration Dysphasia Diet Status: No change Liquid Consistency and Strategies for Safe Swallow: Liquid Intake Recommendation: Thin Liquid Intake Strategies: Small Sips Solid Food Consistency: Dietary Recommendations: Regular Additional Modifications to Solid Foods: Pt seen for bedside dysphagia evaluation. Pt w/ spaces, missing teeth, reports he is still able to chew solids and does not restrict his diet. Pt was able to feed himself during this exam. He demonstrated mildly slowed and prolonged mastication on harder solids, but with overall complete oral clearance and no overt s/s of aspiration. Pt tolerated thin liquids without any choking or coughing. Pt is recommended REGULAR solids and THIN liquids, pills WHOLE in LIQUID. In light of recent choking episode, pt is recommended 1:1 supervision during meals and aspiration precautions. VOICE DATA COMMUNICATIONS ENGINEER to f/u 1x during hospitalization to ensure tolerance. Oral Medication Intake: Whole with Liquid Please contact the pharmacy regarding appropriate crushable or liquid drug formulations that are available whenever modified delivery is recommended. Compensatory Strategies and Precautions to be Taken for Safe Swallow: Sitting Upright (90 deg) Double Swallow Small Bites and Sips Alternate Liquids/Solids Rate of Ingestion Change Avoid Specific Foods Supervision While Eating and Drinking for Safe Swallow: Total Supervision (1:1) Foods to Avoid: Hard tough to chew solids Swallowing Recommended Treatments: Compens. Strategy Educat. Recommendation for Speech: Inpatient Speech Therapy Comment: Frequency/Duration: 1 f/u Date Range for Service Req: Timeline to reassess: Senior Network Architect Clinican/Clinical Fellow: No Supervisory Statement: I have reviewed and agree with the student/clinical fellow's documentation: N/A Speech Language Pathologist: Kena Michaels M.A., CCC-VOICE DATA COMMUNICATIONS ENGINEER
[2023-07-29] VITALS (7 sets, daily range): BP systolic 102–127; BP diastolic 51–75; PULSE 58–87; RESP 18–20; TEMP 36–37; O2SAT 97–99
[2023-07-29] MEDS: FLUoxetine HCl 20 MG CAPSULE 40 MG PO (08:48)
[2023-07-29] MEDS: Atorvastatin Calcium 20 MG TABLET PO (08:49)
[2023-07-29] MEDS: Apixaban 5 MG TABLET PO ×2 (08:49→20:11)
[2023-07-29] MEDS: Furosemide 20 MG TABLET PO ×2 (08:49→20:11)
[2023-07-29] MEDS: Metoprolol Tartrate 12.5 MG HALFTAB PO (08:49)
--- NOTE | 2023-07-29 09:59 | HO.POSTANES ---
Post Anesthesia Evaluation Post Anesthesia Evaluation Date of Service: 07/28/23 Vital Signs: Vital Signs Temp Pulse Resp BP Pulse Ox O2 Del Method 07/29/23 07:45 96.8 F 73 20 127/60 99 Room Air 07/29/23 03:49 98.6 F 87 18 107/75 97 Room Air 07/29/23 00:00 98.6 F 72 18 103/57 L 97 Room Air Anesthesia: Monitored Mental Status: Awake Pain Control: Satisfactory Nausea/Vomiting: None Hydration: Adequate Anesthesia-Related Issues: No Anes. Related Issues
--- NOTE | 2023-07-29 10:58 | MHC.CM.PN ---
PER HOSPITALIST PT COULD BE MEDICALLY CLEARED HOWEVER PT REPORTING HIS [employer] DEVELOPER IS NOT ANSWERING AND NEEDS A NEW VNA, PREVIOUS CM PLACED REFERRAL TO [facility] FOR MONTHLY CATHETER CHANGES, PT'S CHRONIC LERNER CHANGED IN ED ON 07/24, [facility] FOLLOWING AND UPDATED OF LIKELY DC TOMORROW. CM MET W/PT WHO REPORTS HE IS UNABLE TO GET IN AND OUT OF BED WITHOUT ASSISTANCE OF HIS [employer] DEVELOPER WHO PT HAS BEEN UNABLE TO REACH, PT REPORTS HIS PRIMARY CONTACT/[employer] DEVELOPER/HCP IS MARE AND CM ATTMEPTED TO CONTACT [facility] AT [facility] ON HCP AND UNDER CONTACTS WITH NO ANSWER, MESSAGES LEFT X2 W/REQUEST FOR CALL BACK, CM WILL REVISIT IF NO CALL [facility] BY 12PM.
--- NOTE | 2023-07-29 15:09 | HO.PM.IMPN ---
Subjective Subjective Date of Service: 07/29/23 Interval History: seen and examined this morning follow up for GI bleed no bleeding reporting pain around tubing for barth. no abdominal pain Review of Systems Review of Systems: Yes all other systems are reviewed and are negative Constitutional Constitutional: Denies chills and Denies fever(s) Cardiovascular Cardiovascular: Denies chest pain, Denies palpitations and Denies dyspnea Respiratory Respiratory: Denies dyspnea Gastrointestinal Gastrointestinal: Denies abdominal pain Endocrine Endocrine: Denies palpitations Physical Exam Vital Signs: Vital Signs: Last Vital Signs Temp 96.8 F 07/29/23 15:07 Pulse 80 07/29/23 15:07 Resp 20 07/29/23 15:07 BP 111/72 07/29/23 15:07 Pulse Ox 97 07/29/23 15:07 O2 Del Method Room Air 07/29/23 15:07 BMI result Body Mass Index 27.4 Const: General: cooperative, comfortable, no acute distress, alert and awake Nutritional Appearance: average body habitus Resp: Effort & Inspection: normal respiratory effort, able to speak in complete sentences, no respiratory distress and no use of accessory muscles Cardio: Rate: regular rate GI: Other: soft; non-distended; colostomy with minimal output, parastomal hernia : Other: barth catheter present Extrem: Other: s/p BKA and right ankle contracture Objective Data Active Medications Acetaminophen (Acetaminophen 325 Mg Tablet) 650 mg PO Q6H PRN PRN Reason: Pain, Mild (Pain Scale 1-3) Last Admin: 07/28/23 17:11 Dose: 650 mg Documented By: DESIREE Apixaban (Apixaban 5 Mg Tablet) 5 mg PO BID [facility] Last Admin: 07/29/23 08:49 Dose: 5 mg Documented By: DAVE Atorvastatin Calcium (Atorvastatin Calcium 20 Mg Tablet) 20 mg PO DAILY [facility] Last Admin: 07/29/23 08:49 Dose: 20 mg Documented By: DAVE Fluoxetine HCl (Fluoxetine Hcl 20 Mg Capsule) 40 mg PO DAILY [facility] Last Admin: 07/29/23 08:48 Dose: 40 mg Documented By: DAVE Furosemide (Furosemide 20 Mg Tablet) 20 mg PO BID [facility]; Protocol Last Admin: 07/29/23 08:49 Dose: 20 mg Documented By: DAVE Metoprolol Tartrate (Metoprolol Tartrate 12.5 Mg Halftab) 12.5 mg PO BID [facility]; Protocol Last Admin: 07/29/23 08:49 Dose: 12.5 mg Documented By: DAVE Morphine Sulfate (Morphine Sulfate 4 Mg/Ml Cartridge) 2 mg IVPUSH Q4H PRN; Protocol PRN Reason: Pain, Severe (Pain Scale 7-10) Last Admin: 07/26/23 15:58 Dose: 2 mg Documented By: MONICA Non-Formulary Medication (Vibegron [Gemtesa]) 75 mg PO DAILY [facility] Ondansetron HCl (Ondansetron Hcl 4 Mg/2 Ml Vial) 4 mg IVPUSH Q8H PRN PRN Reason: Nausea and Vomiting Polyethylene Glycol (Polyethylene Glycol 3350 17 Gm Powd.Pack) 17 gm PO DAILY [facility] Last Admin: 07/29/23 08:46 Dose: Not Given Documented By: DAVE Non-Admin Reason: Patient Refused Labs 07/28/23 06:19 07/27/23 09:15 Assessment and Plan (1) Diverticulosis: Status: Acute Plan This is a 68-year-old male with PMH of AFib on Eliquis, hypertension, colostomy, Lt BKA, depression, paraplegia, chronic indwelling Barth catheter since 2020 who presents from [facility] for bloody bowel movements and inability to pass urine. acute GI bleed CT scan> no definite evidence of active GI bleeding wall thickening of the left distal colon and stranding suggestive of mild colitis or diverticulitis seen by GI consult, s/p colonoscopy 07/28 - likely bleeding r/t diverticulosis AC resumed tolerating diet stable HH C.Diff colitis ruled out no fever or leukocytosis cdif PCR + but toxin negative indicating colonization was initially started on PO vancomycin due to diarrhea on admission, but no evidence of cdif on colonoscopy and no further diarrhea, po vanco stopped possible UTI related to chronic indwelling barth urine culture mixed angeline likely representing colonization afebrile, no leukocytosis initially treated with ceftriaxone, discussed with rigo LEON d/c after 4 days IV ceftriaxone 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 Frias dispo: home with FILLING ROOM OPERATOR services Patient requires continued hospitalization for: safe dispo Quality Stroke Does the patient have a stroke diagnosis?: No VTE Prior VTE?: No VTE Risk Level:: Medical - moderate - high VTE Device Contraindication: N/A - Device Ordered VTE Drug Contraindication: Treatment Not Indicated
[2023-07-29] MEDS: Acetaminophen 325 MG TABLET 650 MG PO (16:26)
[2023-07-30 03:01] VITALS: BP 132/65; PULSE 67; RESP 20; TEMP 36; O2SAT 98
[2023-07-30 07:43] VITALS: BP 107/52; PULSE 75; RESP 18; TEMP 36.2; O2SAT 100
[2023-07-30] MEDS: Atorvastatin Calcium 20 MG TABLET PO (09:03)
[2023-07-30] MEDS: FLUoxetine HCl 20 MG CAPSULE 40 MG PO (09:03)
[2023-07-30] MEDS: Metoprolol Tartrate 12.5 MG HALFTAB PO (09:04)
[2023-07-30] MEDS: Furosemide 20 MG TABLET PO (09:04)
[2023-07-30] MEDS: Apixaban 5 MG TABLET PO (09:04)
--- NOTE | 2023-07-30 11:08 | MHC.CM.PN ---
Medical reached out RE ? Pt.'s MEDICAL ATTENDANT answering phone yet. Spoke w.Pt.; while talking w/Pt., MEDICAL ATTENDANT's mother called him and reported to him that Nubia (MEDICAL ATTENDANT) has not had a vacation in years, and also that now her phone isn't working. Reported to Medical. For safe D/C planning purposes, directive is to speak w/Pt. RE choices for SNF D/C given he cannot go home w/out assistance and does not need to stay in the hospital. Pt. requesting to stay in the hospital for a few days. This CM explained in detail the D/C planning process and how it relates to hospital LOC, billing, etc. Pt. asking to have until 14:00 today, to make some calls, and try to get ahold of his MEDICAL ATTENDANT before he is sent to a SNF. In the meantime the RNCM requested choices for SNF so referrals can be sent at 14:00 if he is not able to get ahold of his MEDICAL ATTENDANT. Pt. agreed to the following: the [facility] ([place], [place]), [facility], and both [facility] buildings ([facility] and ). If the MEDICAL ATTENDANT is not connected w/by 14:00, referrals will go out to the agreed upon Centers for placement for tomorrow (need PT Eval). Medical aware of PT Eval necessity. CM to follow.
[2023-07-30 11:20] VITALS: BP 136/72; PULSE 72; RESP 18; TEMP 36.9; O2SAT 99
--- NOTE | 2023-07-30 11:45 | MHC.CM.PN ---
Pt. called this CM and notified that TRAVEL JOURNALIST's phone is now working and that TRAVEL JOURNALIST is at Pt.'s house waiting for his return to home. Medical notified. Ambulance set for 14:00pm for D/C back to home today. Will notify VNA. Pt. aware of return to home via ambulance today after lunch (per his request).
--- NOTE | 2023-07-30 11:57 | MHC.CM.PN ---
NA notified of D/C via allscripts, as well as last/most recent F/C change.
--- NOTE | 2023-07-30 11:58 | PM.DS ---
DS: Providers Provider Date of Service: 07/30/23 Date of admission: 07/24/23 22:48 Date of discharge: 07/30/23 Primary care physician: Bolivar Harris MD Consults: 07/24/23 22:05 Consult to Infectious Diseases Routine Consulting Provider: [facility] Infectious Disease Reason for consultation: C.Diff colitis, UTI ? for your eval 07/26/23 08:29 Consult to Gastroenterology Routine Consulting Provider: Tito Man Reason for consultation: cdiff, colitis 07/26/23 23:39 Consult to Cardiology Routine Consulting Provider: [facility] Cardiovascular Services Reason for consultation: 3 sec pasues at night 07/30/23 10:38 Consult to Wound Care Routine Reason for consultation: DTI Has provider been notified: Yes Attending physician on discharge: Patricia Frias Discharging clinician: Mara Reyes DS: Diagnosis Discharge Diagnosis (1) Diverticulosis: Status: Acute DS: Summary Hospital Course Hospital Course: From H&P on the day of admission A 68-year-old male with PMH of AFib, on Eliquis, hypertension, colostomy, Lt BKA, depression, paraplegia, chronic indwelling Barth catheter since 2020 who presents from [facility] for bloody bowel movements and inability to pass urine. Patient reports that it started few days ago with mainly bloody liquid and increased frequency of BM, associated with urinary retention this morning, no fever no chills, no flank pain. denies any chest pain, no abdominal pain, patient is paraplegic and is usually bedbound. In ED Hemoglobin level seems stable at 13. CT scan showed possible colitis and suspected area of bleeding. The bloody stool tested positive for C.Diff antigen while his urine looks infected. Admitted for further evaluation and treatment. acute GI bleed likely due to diverticulosis CT scan showed no definite evidence of active GI bleeding wall thickening of the left distal colon and stranding suggestive of mild colitis or diverticulitis seen by GI consult, s/p colonoscopy 07/28 - likely bleeding r/t diverticulosis. colon polyp also noted, follow up biopsy results AC resumed without further bleeding, he has tolerated diet and H/H has remained stable. C.Diff colitis ruled out no fever or leukocytosis cdif PCR + but toxin negative indicating colonization . was initially started on PO vancomycin due to wattery output in colostomy on admission, but no evidence of cdif on colonoscopy and no further diarrhea, po vanco stopped as per discussion with ID. possible UTI related to chronic indwelling barth urine culture mixed angeline likely representing colonization. he has remained afebrile, no leukocytosis. initially treated with ceftriaxone, discussed with ID, abx d/c after 4 days of IV ceftriaxone as likely to represent colonization. Barth was changed in the ED on day of admission 07/24. He typically has barth changed once a month, but his VNA will no longer do it. Case management is looking for new VNA for this reason. Advised to discuss with Dr. Thurston his urologist - per previous notes, seems that the plan had been for suprapubic catherter placement but this had to be cancelled. Recommend out patient follow up AFib Noted to have 3 second sinus pause on telemetry, patient was seen by cardiology. In patient's with atrial fibrillation a pause of less then 5 seconds is not clinically significant, can continue metoprolol. Eliquis resumed as above. Time Attestation Discharge coordination time: Greater than 30 minutes Quality: Safe Use of Opioids Does Pt have an Active Cancer Diagnosis on the Problem List?: No Quality: Stroke Does the patient have a stroke diagnosis?: No Physical Exam Vital Signs: Vital Signs: Last Vital Signs Temp 98.5 F 07/30/23 11:20 Pulse 72 07/30/23 11:20 Resp 18 07/30/23 11:20 BP 136/72 07/30/23 11:20 Pulse Ox 99 07/30/23 11:20 O2 Del Method Room Air 07/30/23 11:20 BMI result Body Mass Index 27.4 Const: General: cooperative, comfortable, no acute distress, alert and awake Nutritional Appearance: average body habitus Resp: Effort & Inspection: normal respiratory effort, able to speak in complete sentences, no respiratory distress and no use of accessory muscles Cardio: Rate: regular rate GI: Other: soft; non-distended; colostomy with minimal output, parastomal hernia : Other: barth catheter present Extrem: Other: s/p BKA and right ankle contracture DS: Data Data Completed and Pending Completed studies during hospitalization [Text1]: Procedures Change Drainage Device in Bladder, External Approach (04/07/21) Transfusion of Nonautologous Red Blood Cells into Peripheral Vein, Percutaneous Approach (04/07/21) Pending studies at discharge: Pending at discharge 07/28/23 12:58 Surgical [PTH] Routine Discharge Plan Discharge Anticipated Discharge Date/Time: 07/30/23 11:42 Patient Disposition: Home Health Service Discharge Diagnosis: GI bleeding due to diverticulosis Referrals: [facility] [Outside] - 3-5 Days (nursing home for monthly catheter changes. ) Bolivar Johnson MD [Primary Care Provider] - 1 Week Discharge Medications: New polyethylene glycol 3350 17 gram Powder In Packet 17 g PO DAILY Qty: 30 0RF Continued nitrofurantoin monohyd/m-cryst [Macrobid] 100 mg capsule See Rx Instructions PO .COMPLEX Qty: 30 0RF Rx Instructions: 1 tab to be taken on days of catheter change orally; must administer with a meal/food atorvastatin 20 mg tablet 1 tab PO DAILY furosemide 20 mg tablet 1 tab PO BID Eliquis 5 mg tablet 1 tab PO BID metoprolol tartrate 25 mg tablet 0.5 tab PO BID fluoxetine 40 mg capsule 40 mg PO DAILY Gemtesa 75 mg tablet 75 mg PO DAILY Qty: 90 0RF Rx Instructions: gemtesa to replace myrbetriq 50mg Discharge Orders: Discharge Order (Routine); Ordered 07/30/23 Ordered By: Mara Reyes Activity on Discharge: As tolerated Stand Alone Forms: Patient Portal Discharge page Care Plan Goals: see below Health Concerns: GI bleeding likely related to diverticulosis Plan of Treatment: miralax daily for constipation call urology office/PCP to discuss monthly barth catheter changes. Case management attempting to set up VNA for the same call to schedule follow up appointment with PCP Assessment: see discharge summary
== END 2023-07-30 14:17 | disposition home health service (06) | DRG 378 ==
LOC: HO.ED 20:27 → HO.EDOVER 22:48 → HO.IMC 07-25 05:36
PROVIDERS: Internal Medicine Gastroenterology; Nurse Practitioner Acute Care; Physician Assistant Medical; Admitting Provider Student in an Organized Health Care Education/Training Program; Emergency Provider Student in an Organized Health Care Education/Training Program; PCP Internal Medicine; Visit Provider Physician Assistant Medical
PROC: 0DJD8ZZ Inspection of Lower Intestinal Tract, Via Natural or Artificial Opening Endoscopic (ICD-10-PCS; CPT 45378; principal; 2023-07-28 12:20)
DX: K57.31 Diverticulosis of large intestine without perforation or abscess with bleeding (principal); G82.20 Paraplegia, unspecified; I48.20 Chronic atrial fibrillation, unspecified; N31.9 Neuromuscular dysfunction of bladder, unspecified; K59.00 Constipation, unspecified; K63.5 Polyp of colon; I10 Essential (primary) hypertension; Z20.822 Contact with and (suspected) exposure to COVID-19; Z89.512 Acquired absence of left leg below knee; Z93.3 Colostomy status; Z22.1 Carrier of other intestinal infectious diseases; Z87.891 Personal history of nicotine dependence; Z79.01 Long term (current) use of anticoagulants; Z79.899 Other long term (current) drug therapy
CPT/HCPCS: 36415; 74178; 80048; 80053; 81001; 82272; 83690; 83735; 85025; 85027; 85610; 85652; 86850; 86900; 86901; 87086; 87324; 87493; 87507; 87635; 88305; 92610; 93005; 99285; C1758; J0696; J2270; Q9967

== ENCOUNTER → 2023-07-24 11:48 | Outpatient (BNV) | payer MEDICARE, MEDICAID, SELFPAY | PROVIDERS: Emergency Provider Student in an Organized Health Care Education/Training Program; Visit Provider Student in an Organized Health Care Education/Training Program | DX: K57.90 Diverticulosis of intestine, part unspecified, without perforation or abscess without bleeding (principal) | CPT/HCPCS: 99223; 99232; 99239; 99499 ==

== ENCOUNTER → 2023-07-24 22:48 | Outpatient (BNV) | payer MEDICARE, MEDICAID, SELFPAY | PROVIDERS: Admitting Provider Student in an Organized Health Care Education/Training Program; Emergency Provider Student in an Organized Health Care Education/Training Program; PCP Internal Medicine; Visit Provider Internal Medicine Cardiovascular Disease | DX: A04.72 Enterocolitis due to Clostridium difficile, not specified as recurrent (principal); I48.91 Unspecified atrial fibrillation | CPT/HCPCS: 99222 ==

== ENCOUNTER → 2023-07-24 22:48 | Outpatient (BNV) | payer MEDICARE, MEDICAID, SELFPAY | PROVIDERS: Admitting Provider Student in an Organized Health Care Education/Training Program; Emergency Provider Student in an Organized Health Care Education/Training Program; PCP Internal Medicine; Visit Provider Internal Medicine | DX: Z97.8 Presence of other specified devices (principal); K92.2 Gastrointestinal hemorrhage, unspecified | CPT/HCPCS: 99222 ==

== ENCOUNTER 2023-09-07 14:13 | Outpatient (AMB) | payer MEDICARE, MEDICAID, SELFPAY ==
--- NOTE | 2023-09-07 15:13 | MHC.OFFVIS ---
Intake Intake Visit Reasons: H&P/cath change Allergies No Known Allergies [No Known Allergies*] Allergy (Verified 07/24/23 11:33) HPI HPI Comments History of Present Illness Details Maninder is a male. He is a patient of . He seen the following urologic conditions - neurogenic bladder - chronic leak - chronic infection Napier catheter change today Cystoscopy required Open bladder neck Small bladder Probable prior sphincterotomy 04/14/2023-- He state that he is on Eliquis. He states that he has discontinued taking Eliquis during his surgeries. He has a chronic Napier for neurogenic bladder. He reports chronic urinary leakage around the Napier catheter. He states that the visiting nurse will change the catheter for every 3 weeks. He states that they have difficulty getting the Napier catheter all the way into the bladder. He reports that occasionally, he needs to go to ER to replace the catheter.? He is taking Oxybutynin 10mg at bed time. PSA results reviewed ? 03/30/2023?0.6 ng/mL. Plan: Prescribed Gemtesa 75mg to replace myrbetriq 50mg. Continue taking Oxybutynin 10mg at bed time. The patient is interested in suprapubic tube.? I discussed with the patient that due to his several previous abdominal surgeries, placing the suprapubic tube may be complicated.? Willing to consider if we can able to accomplish this, however, he will try the new medications at this time, Follow up tele-health in 3-months. 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 lives above in different apartment Housing: House Are you a primary care technician to a significant other at home: No Do you presently have visiting nurse or other home services: Yes Alcohol intake: former Patient Tobacco Use Status: Former Tobacco user Quit Date: age 48's Tobacco use type: Cigarette Advance Directives Date on File: 04/08/21 service: No Current occupational status: disabled Review of Systems Const Denies chills and Denies fever(s) Card Reports no additional complaints and Denies syncope Resp Denies cough GI Denies abdominal pain and Denies heartburn Reports as per HPI and Denies change in libido Neuro Denies syncope Psych Denies change in libido Endo Denies change in libido Physical Exam Const General: cooperative, healthy appearing, comfortable and no acute distress Orientation/consciousness: patient oriented x3 HEENT Face and sinus: Yes normal facial exam Mouth: moist mucous membranes Neck Neck: Yes normal visual inspection, Yes full ROM and Yes trachea midline Chest Chest palpation & inspection: normal inspection of the chest Resp Effort & Inspection: normal respiratory effort, able to speak in complete sentences and no respiratory distress GI Inspection: Yes normal to inspection Back/Spine/Pelvis Cervical Spine: normal cervical lordosis Thoracic/Lumbar Spine: thoracic and lumbar spine normal to inspection Skin General skin exam: no rashes or lesions noted Neuro General: patient oriented x3, gait normal, tone normal and moves all extremities Extrem General: Yes normal to inspection and Yes capillary refill normal Office Procedures Cystoscopy Consent Discussed risk and benefit or proposed procedure with the patient. Information consent for procedure given to the patient. Discussed technical aspects, risks, benefits and alternatives in full. Addressed all of the patient's questions and concerns regarding the procedure. The patient demonstrated knowledge and understanding. They wish to proceed with this procedure. Preparation The patient was prepped in the usual manner. A button sawyer was present and in the room. Genitalia was prepped with betadine solution in a sterile manner. Lidocaine Jelly 2% was placed into the urethra and 16Fr flexible Olympus cystoscope was inserted into the meatus after adequate lubrication. Procedure Meatus iatrogenic hypospadias Urethra posterior urethra intact Prostatic Urethra open prostate Bladder examination with retroflexion of cystoscope Bladder Orifices could not visualize Bladder Capacity small Trabeculations - Cellule Formation - Diverticulum Formation - Mucosal Erythema -- Bladder Tumor - [id number] DISPOSABLE SCOPE URO-G FLEXIBLE SCOPE Procedure code (CPT) selection complete Office Meds lidocaine HCl 2 % mucosal jelly in applicator Performing Provider: Dhruv Thurston MD [place] [facility] [place] [facility] Administered by: Lori Mathias RN on 09/07/23 15:13 Dose Route Admin Location Dispensed Lot Number Expiration Date NDC Office Clinician 10 mL intra-urethral 10 mL nitrofurantoin monohydrate/macrocrystals 100 mg capsule Performing Provider: Dhruv Thurston MD [place] [facility] [place] [facility] Administered by: Lori Mathias RN on 09/07/23 15:13 Dose Route Admin Location Dispensed Lot Number Expiration Date NDC Office Clinician 100 mg PO 1 cap naproxen 500 mg tablet Performing Provider: Dhruv Thurston MD [place] [facility] [place] [facility] Administered by: Lori Mathias RN on 09/07/23 15:13 Dose Route Admin Location Dispensed Lot Number Expiration Date NDC Office Clinician 500 mg PO 1 tab Assessment & Plan Assessment & Plan (1) Neurogenic bladder: Code(s): N31.9 - Neuromuscular dysfunction of bladder, unspecified Plan Napier catheter placed Orders: Orders AMB Cystoscopy 09/07/23 N31.9 - Neuromuscular dysfunction of bladder, unspecified, R33.8 - Other retention of urine Patient Instructions: Imaging studies, laboratory and physical exam results were discussed and reviewed in detail. No major barriers to patient understanding were identified. An opportunity to ask questions regarding the treatment plan was provided. All questions were answered. The patient expressed understanding and agreement with the above treatment plan. The patient is aware they should contact our office by phone for worsening of their current condition or the appearance of new urologic symptoms. Compliance is encouraged with any medications and followup testing that is ordered. It is a privilege to participate in the urologic care of your patient. If you have any questions or concerns regarding treatment for the above conditions, or other urologic issues, please do not hesitate to contact me. The office telephone contact is [phone]. This note is constructed using voice recognition software. While every effort has been made to ensure accuracy supervisor fiberglass boat assembly errors may have been included. Yours sincerely, Dr Dhruv Thurston MD, [facility] - Urology Providers of Expert, Compassionate Care for the Genitourinary System Coding Level of Care Code Est Pt Level 3 (70104) Diagnoses Neurogenic bladder N31.9 CPT Codes Cystoscopy - CPT: 75559-[id number] ([id number])
== END 2023-09-07 15:26 | disposition home or self-care (01) ==
PROVIDERS: PCP Internal Medicine; Visit Provider Urology
DX: N31.9 Neuromuscular dysfunction of bladder, unspecified (principal)
CPT/HCPCS: 52000; 99213

== ENCOUNTER → 2023-09-07 14:13 | Outpatient (BNVA) | payer MEDICARE, MEDICAID, SELFPAY | PROVIDERS: PCP Internal Medicine; Visit Provider Urology | DX: N31.9 Neuromuscular dysfunction of bladder, unspecified (principal) | CPT/HCPCS: 52000; 99212 ==

== ENCOUNTER 2023-09-17 12:20 | Emergency (ER) | payer MEDICARE, MEDICAID, SELFPAY ==
[2023-09-17 12:36] VITALS: BP 151/82; PULSE 92; RESP 16; TEMP 36.5; O2SAT 98; BMI 28.1
--- NOTE | 2023-09-17 13:26 | ED_ITS ---
HPI - Male Genitourinary General Chief complaint: Urogenital-Male Stated complaint: GROIN PAIN,F/C FELL OUT PER EMS Time Seen by Provider: 09/17/23 12:45 Source: patient and EMS Mode of arrival: EMS Limitations: no limitations History of Present Illness HPI Narrative: 67-year-old male with a pmhx significant for paraplegia, MDD, HTN, chronic barth catheter for neurogenic bladder, chronic leakage around barth, AFib on Eliquis, colostomy here with complaints of Barth catheter falling during the night. Patient reports since waking he has been incontinent of urine but does not feel that he is emptying his bladder completely. He does complain of some suprapubic discomfort and dysuria. No fevers, chills, vomiting. Patient reports he is followed by Dr. Thurston and he believes they put the wrong size Barth catheter and balloon and the last time his catheter was changed. Related Data Home Medications Medication Instructions Recorded Confirmed apixaban 5 mg tablet (Eliquis) 1 tab PO BID 04/07/21 07/25/23 atorvastatin 20 mg tablet 1 tab PO DAILY 04/07/21 07/25/23 furosemide 20 mg tablet 1 tab PO BID 04/07/21 07/25/23 metoprolol tartrate 25 mg tablet 0.5 tab PO BID 07/02/21 07/25/23 fluoxetine 40 mg capsule 40 mg PO DAILY 07/25/23 07/25/23 Previous Rx's Medication Instructions Recorded nitrofurantoin See Rx Instructions PO .COMPLEX 01/25/23 monohydrate/macrocrystals 100 mg #30 caps capsule (Macrobid) vibegron 75 mg tablet (Gemtesa) 75 mg PO DAILY #90 tabs 04/14/23 polyethylene glycol 3350 17 gram 17 g PO DAILY #30 ea 07/30/23 oral powder packet cefuroxime axetil 500 mg tablet 500 mg PO QID 7 days #28 tabs 09/17/23 Allergies Allergy/AdvReac Type Severity Reaction Status Date / Time No Known Allergies Allergy Verified 07/24/23 11:33 [No Known Allergies*] Review of Systems Review of Systems: Yes all other systems are reviewed and are negative Constitutional: Constitutional: Reports no additional constitutional complaints, Denies body ache(s), Denies chills, Denies fever(s), Denies headache(s) and Denies weakness Eyes: Eyes: Reports no additional eye complaints and Denies change in vision ENT: Reports system reviewed and no additional complaints, except as documented, Denies dizziness, Denies headache(s), Denies nasal congestion, Denies nasal discharge and Denies neck pain Cardiovascular: Cardiovascular: Reports no additional cardiovascular complaints, Denies chest pain, Denies leg edema and Denies dyspnea Respiratory: Respiratory: Reports no additional respiratory complaints, Denies cough and Denies dyspnea Gastrointestinal: Gastrointestinal: Reports no additional gastrointestinal complaints, Denies abdominal pain, Denies diarrhea, Denies nausea and Denies vomiting Genitourinary: Genitourinary: Denies hematuria, Reports dysuria, Denies flank pain, Denies penile discharge, Denies testicular pain, Denies urinary frequency, Denies urinary hesitancy, Denies urinary incontinence and Denies urinary urgency Musculoskeletal: Musculoskeletal: Reports no additional musculoskeletal complaints, Denies back pain, Denies arthralgias, Denies joint swelling, Denies neck pain, Denies numbness and Denies tingling Integumentary/Breasts: Skin/Breast: Reports system reviewed and no additional complaints, except as docu and Denies rash Neurologic: Reports system reviewed and no additional complaints, except as documented, Denies Abnormal speech present, Denies dizziness, Denies headache(s), Denies numbness, Denies tingling and Denies weakness PMFSH Past Medical History Attestation statement: The following information was validated with the patient. 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 lives above in different apartment Housing: House Are you a primary neonatal intensive care nurse to a significant other at home: No Do you presently have visiting nurse or other home services: Yes Alcohol intake: former Patient Tobacco Use Status: Former Tobacco user Quit Date: age 48's Tobacco use type: Cigarette Advance Directives: Yes Advance Directives on File: Yes Advance Directives Date on File: 04/08/21 service: No Current occupational status: disabled Physical Exam Vital Signs: Vital Signs: Last Vital Signs Temp 97.7 F 09/17/23 12:36 Pulse 92 09/17/23 12:36 Resp 16 09/17/23 12:36 BP 151/82 H 09/17/23 12:36 Pulse Ox 98 09/17/23 12:36 O2 Del Method Room Air 09/17/23 12:36 BMI result Body Mass Index 28.1 Const: General: cooperative, healthy appearing, comfortable and no acute distress Orientation/consciousness: patient oriented x3 Limitations: no limitations HEENT: Head: Yes normal to inspection Ears: hearing grossly normal bilaterally General nose exam: Normal external nose present Face and sinus: Yes normal facial exam Mouth: Normal oral and palatal mucosa present Throat: Yes posterior oropharynx normal Eyes: General: appearance normal, both eyes and all related structures Pupils: Equal, round and reactive pupils present Neck: Neck: Yes normal visual inspection Chest: Chest palpation & inspection: normal inspection of the chest Resp: Effort & Inspection: normal respiratory effort Auscultation: clear to auscultation bilaterally Cardio: Rate: regular rate Rhythm: regular rhythm Peripheral pulses: Peripheral pulses 2+ throughout GI: Inspection: Yes normal to inspection Palpation (GI): Soft to palpation and nontender Auscultation: normal bowel sounds Back/Spine/Pelvis: Thoracic/Lumbar Spine: thoracic and lumbar spine normal to inspection Skin: General skin exam: no rashes or lesions noted Neuro: General: patient oriented x3, no focal motor deficits and normal sensation to monofilament Cranial nerves: Yes Equal, round and reactive pupils present Cognition (Neuro): normal cognition Speech: No Abnormal speech present Gait exam (Neuro): Normal gait present Motor exam (neuro): 5/5 motor strength present throughout Extrem: General: Yes normal to inspection Course Course Course Narrative: 1600-Sign out to James SINGH pending UA and dispo Reevaluation(s) Reevaluation #1: positive for urinary tract infection. Patient will be discharged with antibiotic Time: 20:05 Medications Administered Discontinued Medications Generic Name Dose Route Start Last Admin Trade Name Freq PRN Reason Stop Dose Admin Acetaminophen 975 mg 09/17/23 15:57 09/17/23 17:21 Acetaminophen 325 Mg Tablet PO 09/17/23 15:58 975 mg ONCE ONE Administration Lidocaine HCl 10 ml 09/17/23 12:49 09/17/23 15:12 Lidocaine Hcl 2 % Urojet 10 Ml Jel.Pf.Windy TOPICAL 09/17/23 12:50 10 ml ONCE ONE Administration Medical Decision Making Medical Decision Making [facility] Narrative: 67-year-old male with a pmhx significant for paraplegia, MDD, HTN, chronic barth catheter for neurogenic bladder, chronic leakage around barth, AFib on Eliquis, colostomy here with complaints of Barth catheter falling during the night.? Patient reports since waking he has been incontinent of urine but does not feel that he is emptying his bladder completely.? He does complain of some suprapubic discomfort and dysuria.? No fevers, chills, vomiting.? Patient reports he is followed by Dr. Thurston and he believes they put the wrong size Barth catheter and balloon and the last time his catheter was changed. No focal abdominal pain. Abdomen soft/nontender. Will have nursing place barth catheter, obtain UA Differential Diagnosis Differential Diagnoses: The differential diagnosis associated with the presentation includes barth catheter displacement, uti Admission/Observation Consideration of admission/observation: Escalation of care including admission/observation considered Lab Data [facility] Lab Attestation statement: I reviewed the patient's lab results. Labs: Lab Results 09/17/23 Range/Units 17:13 Urine Color Yellow Urine Appearance Turbid Urine pH >= 9.0 (5.0-9.0) Ur Specific [place] 1.025 (1.005-1.025) Urine Protein 100 (2+) H (Neg-Trace) mg/dL Urine Glucose (UA) Negative (Negative) mg/dL Urine Ketones Negative (Negative) mg/dL Urine Blood Negative (Negative) Urine Nitrite Positive H (Negative) Ur Leukocyte Esterase Small (1+) H (Negative) Urine RBC 6-10 H (0-2) /HPF Urine WBC 21-50 H (0-5) /HPF Ur Squamous Epith Cells 0-2 (0-2) /HPF Other Crystals Present Urine Bacteria 4+ (None Seen) Hyaline Casts 0-2 (0-2) /LPF Independent Historian Clinical information obtained from an independent historian. History obtained from or confirmed by: EMS Procedures Procedure Narrative Procedure Narrative: A 20 Macedonian coude Barth catheter was placed with 30 cc balloon with no difficulty Discharge Plan Discharge Clinical Impression: Barth catheter problem Patient Disposition: Home, Self-Care Instructions: Urinary Tract Infection in Men (ED), Barth Catheter Placement and Care (ED) Additional Instructions: Follow-up with your urologist as needed. return to the ED for any abdominal pain, nausea, vomiting, flank pain, fever, chills, dysuria, hematuria, or any other concerning symptoms. Please follow-up with the primary care provider. Prescriptions: New cefuroxime axetil 500 mg tablet 500 mg PO QID 7 Days Qty: 28 0RF No Action nitrofurantoin monohyd/m-cryst [Macrobid] 100 mg capsule See Rx Instructions PO .COMPLEX Qty: 30 0RF Rx Instructions: 1 tab to be taken on days of catheter change orally; must administer with a meal/food atorvastatin 20 mg tablet 1 tab PO DAILY furosemide 20 mg tablet 1 tab PO BID Eliquis 5 mg tablet 1 tab PO BID metoprolol tartrate 25 mg tablet 0.5 tab PO BID fluoxetine 40 mg capsule 40 mg PO DAILY polyethylene glycol 3350 17 gram Powder In Packet 17 g PO DAILY Qty: 30 0RF Gemtesa 75 mg tablet 75 mg PO DAILY Qty: 90 0RF Rx Instructions: gemtesa to replace myrbetriq 50mg Referrals: Bolivar Johnson MD [Primary Care Provider] - 1 week Interventions: ED Discharge Assessment Last Done: 09/17/23 22:08 Discharge Date/Time: 09/17/23 22:09 Print Language: Togolese
[2023-09-17] MEDS: Lidocaine HCl 2 % Urojet 10 ML JEL.PF.APP TOPICAL (15:12)
--- NOTE | 2023-09-17 15:17 | PC.NURSE ---
Urojet used with patient, patient tolerated well. Penis is spilt at the tip from chronic catheter use.
[2023-09-17] MEDS: Acetaminophen 325 MG TABLET 975 MG PO (17:21)
[2023-09-17 17:29] LABS: Appearance Urine Turbid; Color Urine Yellow; Glucose Urine UA Negative (Negative); Leukocyte Esterase Urine Small (1+) (Negative); Nitrite Urine Positive (Negative); PH >= 9.0 (5.0-9.0); Specific Gravity - Urine 1.025 (1.005-1.025); UMIC TRIGGER UACC YES; Urine Blood Negative (Negative); Urine Ketones Negative (Negative); Urine Protein 100 (2+) mg/dL (Neg-Trace)
[2023-09-17 17:49] LABS: Bacteria Urine 4+ (None Seen); Hyaline Casts Urine 0-2 /LPF (0-2); Other Crystals Urine Present; Squamous Epithelial Cell Urine 0-2 /HPF (0-2); UACC Culture Trigger YES; WBC Urine 21-50 /HPF (0-5)
--- NOTE | 2023-09-17 22:07 | PC.NURSE ---
LATE ENTRY LERNER INSERTED BY PREVIOUS RN. DRAINING CLEAR YELLO WURINE. OSTOMY CHANGED AND CLEANED APPEARS BEEFY RED. PT D/C WITH COLE.
== END 2023-09-17 22:09 | disposition home or self-care (01) ==
PROVIDERS: Nurse Practitioner Family; Emergency Provider Student in an Organized Health Care Education/Training Program; PCP Internal Medicine
DX: N39.0 Urinary tract infection, site not specified (principal); B96.4 Proteus (mirabilis) (morganii) as the cause of diseases classified elsewhere; B95.2 Enterococcus as the cause of diseases classified elsewhere; N31.9 Neuromuscular dysfunction of bladder, unspecified; I10 Essential (primary) hypertension; I48.91 Unspecified atrial fibrillation; G82.20 Paraplegia, unspecified; Z79.01 Long term (current) use of anticoagulants; Z96.0 Presence of urogenital implants
CPT/HCPCS: 51702; 81001; 87086; 87088; 87186; 99283

== ENCOUNTER 2023-09-27 11:32 | Outpatient (AMB) | payer MEDICARE, MEDICAID, SELFPAY ==
--- NOTE | 2023-09-27 11:32 | MHC.OFFVIS ---
Intake Intake Visit Reasons: follow up visit Intake Note: Patient is Present for Telephone Follow Up For Discussion on SP Tube placement Urology Med: Gemtesa Antibiotic Allergy:None Blood Thinner: Eliquis Patient states that his barth catheter fell out last week and catheter was replaced. He states that he just started his antibiotic (Macrobid) Today Allergies No Known Allergies [No Known Allergies*] Allergy (Verified 09/27/23 11:34) HPI HPI Comments History of Present Illness Details Maninder is a male. He is a patient of . He seen the following urologic conditions - neurogenic bladder - chronic leak - chronic infection Telemedicine Evaluation 15 min Consultation [place] Video attempted Would like to proceed with suprapubic tube Understands that he has a small shrunken bladder and may have leakage and urge. This may need to be controlled with Botox injections. Open bladder neck Small bladder - denies prior sphincterotomy or prostate procedure\ 04/14/2023-- He state that he is on Eliquis. He states that he has discontinued taking Eliquis during his surgeries. He has a chronic Barth since 2010 for neurogenic bladder. He reports chronic urinary leakage around the Barth catheter. He states that the visiting nurse will change the catheter for every 3 weeks. He states that they have difficulty getting the Barth catheter all the way into the bladder. He reports that occasionally, he needs to go to ER to replace the catheter.? He is taking Oxybutynin 10mg at bed time. PSA results reviewed ? 03/30/2023?0.6 ng/mL. Colostomy 2020 Plan: Prescribed Gemtesa 75mg to replace myrbetriq 50mg. Continue taking Oxybutynin 10mg at bed time. The patient is interested in suprapubic tube.? I discussed with the patient that due to his several previous abdominal surgeries, placing the suprapubic tube may be complicated.? 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 lives above in different apartment Housing: House Are you a primary intensive care nurse to a significant other at home: No Do you presently have visiting nurse or other home services: Yes Alcohol intake: former Patient Tobacco Use Status: Former Tobacco user Quit Date: age 48's Tobacco use type: Cigarette Advance Directives Date on File: 04/08/21 service: No Current occupational status: disabled Review of Systems Const All systems reviewed & are unremarkable except as noted in HPI and below Reports no additional complaints Resp Reports no additional complaints GI Reports no additional complaints Reports as per HPI Musc Reports no additional complaints Physical Exam Telemedicine evaluation Appropriate responses Regular breathing rate and rhythm HEENT Head: Yes normal to inspection Ears: hearing grossly normal bilaterally Eyes General: appearance normal, both eyes and all related structures Neck Neck: Yes normal visual inspection Chest Chest palpation & inspection: normal inspection of the chest Resp Effort & Inspection: normal respiratory effort and able to speak in complete sentences Assessment & Plan Assessment & Plan (1) Neurogenic bladder: Code(s): N31.9 - Neuromuscular dysfunction of bladder, unspecified (2) Hypospadias: Code(s): Q54.9 - Hypospadias, unspecified Qualifiers: Hypospadias type: penile Qualified Code(s): Q54.1 - Hypospadias, penile Plan Risks, benefits and alternatives to therapy were discussed. These include but are not limited to infection, bleeding, damage to local organs and tissues, need for further interventions. Anesthetic risks regarding cardiac arrhythmia, blood clots, and potential mortality were discussed. The patient understands the typical recovery time and the outpatient nature of the procedure. After consideration of these risks the patient gives full informed consent and they wish to move ahead with the procedure. Cystoscopy suprapubic tube placement. Will need ultrasound Patient Instructions: Imaging studies, laboratory and physical exam results were discussed and reviewed in detail. No major barriers to patient understanding were identified. An opportunity to ask questions regarding the treatment plan was provided. All questions were answered. The patient expressed understanding and agreement with the above treatment plan. The patient is aware they should contact our office by phone for worsening of their current condition or the appearance of new urologic symptoms. Compliance is encouraged with any medications and followup testing that is ordered. It is a privilege to participate in the urologic care of your patient. If you have any questions or concerns regarding treatment for the above conditions, or other urologic issues, please do not hesitate to contact me. The office telephone contact is [phone]. This note is constructed using voice recognition software. While every effort has been made to ensure accuracy manufacturing weaver errors may have been included. Yours sincerely, Dr Dhruv Thurston MD, [facility] - Urology Providers of Expert, Compassionate Care for the Genitourinary System Telehealth Telehealth Location of provider rendering services: practice address Location of patient: address on file Patient Identification confirmed using: Name, : Yes Telehealth method: video Patient verbally consented to treatment: Yes Patient verbally consented to billing insurance company: Yes Patient informed of any privacy concerns related to visit: Yes Coding Level of Care Code Est Pt Level 4 (01138) Diagnoses Neurogenic bladder N31.9 Penile hypospadias Q54.1 Hypospadias type: penile
== END 2023-09-27 12:24 | disposition home or self-care (01) ==
LOC: HO.HUSH 11:32
PROVIDERS: PCP Internal Medicine; Visit Provider Urology
DX: N31.9 Neuromuscular dysfunction of bladder, unspecified (principal); Q54.1 Hypospadias, penile
CPT/HCPCS: 99214

== ENCOUNTER → 2023-09-27 11:32 | Outpatient (BNVA) | payer MEDICARE, MEDICAID, SELFPAY | PROVIDERS: PCP Internal Medicine; Visit Provider Urology ==

== ENCOUNTER 2023-10-02 10:48 | Inpatient (IN) | payer MEDICARE, MEDICAID, SELFPAY ==
--- NOTE | ~2023-10-02 | CT_ITS ---
EXAMINATION: CT ABDOMEN AND PELVIS WITH CONTRAST CLINICAL INFORMATION: diffuse abd pain COMPARISON: 07/24/2023 CT scan TECHNIQUE: Multidetector volumetric imaging was performed from the superior aspect of the liver through the pubic symphysis following administration of 85 mL Omnipaque 300 intravenous contrast. Sagittal and coronal reformatted images were obtained on the technologist workstation.. This CT examination was performed using dose optimization techniques as appropriate, variously including the following: *Automated exposure control *Adjustment of mA and/or kV according to patient size (this includes techniques or standardized protocols for targeted exams where dose is matched to indication/reason for exam; i.e. extremities or head) *Use of iterative reconstruction technique DLP: 1000 mGy-cm FINDINGS: LUNG BASES: Minimal left basilar dependent atelectasis. Mild asymmetric elevation of the left hemidiaphragm. LIVER, GALLBLADDER, AND BILIARY TREE: Mild diffuse fatty infiltration of the liver. No focal hepatic lesion nor biliary ductal dilatation. The gallbladder surgically absent. PANCREAS: Unremarkable. SPLEEN: Unremarkable. ADRENAL GLANDS: Unremarkable. KIDNEYS AND URETERS: The kidneys are normal in size, shape, and attenuation. Small low-attenuation cortical cysts bilaterally. No hydronephrosis, hydroureter, or perinephric stranding. No calculi. BLADDER: Decompressed with Napier catheter GASTROINTESTINAL TRACT: Kamara's pouch is seen with a decompressed remaining rectosigmoid colon. More proximal colon exits through the left lower quadrant colostomy with no obvious obstructive changes. There is scattered colonic diverticulosis within the remaining colon. Visualized small bowel is nonobstructed. There is a prominent small bowel containing parastomal hernia again seen in the left lower quadrant similar in appearance to the prior study. ABDOMINAL WALL: Left lower quadrant parastomal hernia. Small midline fat-containing periumbilical hernia LYMPHOVASCULAR STRUCTURES: Extensive vascular calcification within the aorta iliac system. Patient has a known aortic dissection seen the visualized portion of the thoracic order with the small or false lumen supplying the celiac and superior mesenteric arteries. The abdominal graft is just below the level of the renal arteries with atherosclerotic disease seen within the [place] renal vessels. There is diffuse vascular calcification within the visualized iliac vessels. The visualized portion of the left femoral artery appears occluded which is likely a chronic finding but better seen on today's study which extends further down into the legs PELVIC VISCERA: Unremarkable. OSSEOUS STRUCTURES: Extensive multilevel degenerative changes in the spine. Compression deformities of L2 and T12 are again seen, similar to the prior exam. There is diffuse osteopenia. There is diffuse muscle atrophy CT/CT abdomen pelvis w IV con IMPRESSION: Chronic appearing and postoperative changes as described. I do not appreciate any acute intra-abdominal process when compared to the 07/24/2023 study.
--- NOTE | 2023-10-02 10:55 | ED.GENADULT ---
HPI - General Adult General Chief complaint: Abdominal Pain Stated complaint: ABD PAIN NAUSEA QUADRIPLEGIC Time Seen by Provider: 10/02/23 10:51 Source: patient and EMS Mode of arrival: EMS Limitations: no limitations History of Present Illness HPI narrative: 68-year-old male history of LLE amputation , AFib on Eliquis, diverticulitis with colostomy in place presenting for evaluation of diffuse abdominal pain and decreased output into colostomy bag for the past few days, patient reports abdominal pain is been present for the past 2 weeks, he reports that typically he changes his colostomy bag daily however he has not had to do anything with it for 3 days due to decreased output. Reports a/c nausea. He thinks his intestines may be clogged. Denies fevers, chills, chest pain, shortness of breath, vomiting, diarrhea, headache, vision changes. Currently being treated for UTI Related Data Home Medications Medication Instructions Recorded Confirmed apixaban 5 mg tablet (Eliquis) 1 tab PO BID 04/07/21 07/25/23 atorvastatin 20 mg tablet 1 tab PO DAILY 04/07/21 07/25/23 furosemide 20 mg tablet 1 tab PO BID 04/07/21 07/25/23 metoprolol tartrate 25 mg tablet 0.5 tab PO BID 07/02/21 07/25/23 fluoxetine 40 mg capsule 40 mg PO DAILY 07/25/23 07/25/23 Previous Rx's Medication Instructions Recorded nitrofurantoin See Rx Instructions PO .COMPLEX 01/25/23 monohydrate/macrocrystals 100 mg #30 caps capsule (Macrobid) vibegron 75 mg tablet (Gemtesa) 75 mg PO DAILY #90 tabs 04/14/23 polyethylene glycol 3350 17 gram 17 g PO DAILY #30 ea 07/30/23 oral powder packet cefuroxime axetil 500 mg tablet 500 mg PO QID 7 days #28 tabs 09/17/23 nitrofurantoin 100 mg PO Q12H 7 days #14 caps 09/24/23 monohydrate/macrocrystals 100 mg capsule (Macrobid) Allergies Allergy/AdvReac Type Severity Reaction Status Date / Time No Known Allergies Allergy Verified 09/27/23 11:34 [No Known Allergies*] Review of Systems Review of Systems: Constitutional : No Weight loss, No Fever, No Chills, No Fatigue, No Malaise ENT/Mouth : No sore throat, No Rhinorrhea Eyes: No Eye Pain, No Swelling, No Redness Cardiovascular : No Chest Pain, No SOB, No Dyspnea on Exertion, No Orthopnea, No Edema, No Palpitations Respiratory : No Cough, No Sputum, No Wheezing Gastrointestinal : + Nausea, No Vomiting, No Diarrhea, No Constipation, + abdominal Pain, No Hematochezia, No Melena Genitourinary : No Dysuria, No Urinary Frequency, No Hematuria, Musculoskeletal : No joint pain, No Myalgias, No Joint Swelling Skin : No Skin Lesions, No rash Neuro : No Weakness, No Numbness, No Dizziness, No Headache Psych : No Anxiety/Panic, No Depression All other systems reviewed and are negative Yes all other systems are reviewed and are negative [facility] Past Medical History Attestation statement: The following information was validated with the patient. Source: old records reviewed and nursing notes reviewed Onset Date is defined in the Problem List Problems that require an onset date and time if occurred within 24 hrs of arrival to the ED Aortic Dissection and Rupture; Neurologic impairment; Cardiopulmonary Arrest; Endotracheal Intubation; Insertion or Replacement of Mechanical Circulatory Assist Device Medical History Chronic indwelling Barth catheter Atrial fibrillation with slow ventricular response Left below-knee amputee Chronic indwelling Barth catheter Elevated cholesterol Muscle weakness Embolism Atrial fibrillation Essential hypertension Major depressive disorder COVID Surgical History S/P colostomy H/O colonoscopy Hx of cholecystectomy History of AAA (abdominal aortic aneurysm) repair Social History Social History Household Members: Caregiver 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 Housing: House Are you a primary childcare aide to a significant other at home: No Do you presently have visiting nurse or other home services: Yes Alcohol intake: former Patient Tobacco Use Status: Former Tobacco user Quit Date: age 48's Tobacco use type: Cigarette Advance Directives: Yes Advance Directives on File: Yes Advance Directives Date on File: 04/08/21 service: No Current occupational status: disabled Physical Exam ED Vital Signs: Vital Signs - 24 hr 10/02/23 11:16 10/02/23 15:24 10/02/23 15:55 Temperature 97.9 F 97.7 F Pulse Rate 90 92 85 Respiratory Rate 16 16 18 Blood Pressure 119/51 L 127/70 124/69 Pulse Oximetry 100 99 99 Oxygen Delivery Method Room Air Room Air Room Air BMI result Body Mass Index 28.1 vss Appearance: Alert.? Oriented X3.? No acute distress.? Head: Normocephalic, atraumatic, no step-offs or deformities Eyes: Pupils equal, round and reactive to light.? ENT: Pharynx normal.??External ears normal, TMs normal bilaterally and EAC's normal. No pain with manipulation of external ears bilaterally. No mastoid tenderness. Neck: Normal inspection.? Neck supple.? CVS: Normal heart rate and rhythm.? Pulses normal.? Respiratory: No respiratory distress.? Breath sounds normal.? Abdomen: Soft and diffuse tenderness to abd.? + colostomy in place. + barth in place ( dark foul smelling urine) Skin: Skin warm and dry.? Normal skin color.? Normal skin turgor.? Extremities: No lower extremity edema.? No calf ttp. 5/5 strength to bilateral upper and lower extremities Back: No midline tenderness, no C-spine tenderness, full range of motion, no CVA tenderness bilaterally Neuro: Oriented X 3.? No motor deficit.? No sensory deficit. CN 2-12 intact Course Reevaluation(s) Reevaluation #1: CBC wnl. Chemistry unremarkable. UA w/ infection. Ct pending. patient has grown Enterococcus faecalis and Proteus in the past resistant to multiple medications both can be treated with IV ampicillin will order 2 g at this time. Time: 15:44 Reevaluation #2: Plan- hospital admission. CT pending. Time: 15:52 Medications Administered Discontinued Medications Generic Name Dose Route Start Last Admin Trade Name Freq PRN Reason Stop Dose Admin Acetaminophen 975 mg 10/02/23 11:06 10/02/23 12:15 Acetaminophen 325 Mg Tablet PO 10/02/23 11:07 975 mg ONCE ONE Administration Iohexol 85 ml 10/02/23 15:08 10/02/23 15:09 Iohexol 350 Mg/Ml 100 Ml Infus..Btl IV 10/02/23 15:09 85 ml ONCE ONE Administration Medical Decision Making Medical Decision Making [facility] Narrative: [age] yo m presents w/ abd pain X 2 weeks w/ a/c nausea has a colostomy in place. Comes in because he thinks his intestines are clogged PE diffuse abd pain Concerns for constipation vs obstruciton. Unlikley acute abdomen, diverticulitis, pancreatitis, appendicits, cholecystitis. Will rule out UTI and metabolic derangments. Plan- Labs imaging Differential Diagnosis Differential Diagnoses: The differential diagnosis associated with the presentation includes Concerns for constipation vs obstruciton. Unlikley acute abdomen, diverticulitis, pancreatitis, appendicits, cholecystitis. Will rule out UTI and metabolic derangments. Admission/Observation Consideration of admission/observation: Escalation of care including admission/observation considered possible Consult Healthcare Provider Management of the patient was discussed with: Senior Advisor Lab Data [facility] Lab Attestation statement: I reviewed the patient's lab results. 10/02/23 11:17 10/02/23 11:17 Labs: Lab Results 10/02/23 10/02/23 Range/Units 11:17 15:25 WBC 5.8 (4.8-10.8) X10*3/uL RBC 4.71 (4.60-5.80) X10*6/uL Hgb 14.3 (14.0-18.0) g/dl Hct 43.8 (42.0-52.0) % MCV 93.0 (80.0-98.0) fL MCH 30.4 (27.0-33.0) pg MCHC 32.6 (31.0-36.0) g/dl RDW 13.3 (11.0-16.0) % Plt Count 185 (160-400) X10*3/uL MPV 10.2 (9.4-12.4) fL Immature Gran % (Auto) 0.3 (0.0-0.4) % Neut % (Auto) 65.4 (45-73) % Lymph % (Auto) 21.6 (20-40) % Robertson % (Auto) 9.2 (2-11) % Eos % (Auto) 2.6 (0-4) % Baso % (Auto) 0.9 (0-2) % Lymph # (Auto) 1.3 (1.2-4.9) X10*3/uL Robertson # (Auto) 0.5 (0.1-1.2) X10*3/uL Eos # (Auto) 0.2 (0.0-0.4) X10*3/uL Baso # (Auto) 0.1 (0.0-0.2) X10*3/uL Abs Immat Gran (auto) 0.02 (0.00-0.03) X10*3/uL Absolute Neuts (auto) 3.8 (2.0-8.3) x10*3/uL Absolute Nucleated RBC 0.000 (0.0-0.012) X10*3/uL Nucleated RBC % (auto) 0.0 (0.0-0.2) /100WBC Sodium 133 L (135-145) mmol/L Potassium 4.4 (3.3-5.1) mmol/L Chloride 104 (96-108) mmol/L Carbon Dioxide 19 L (22-29) mmol/L Anion Gap 14 (12-20) BUN 19 H (9-16) mg/dL Creatinine 0.65 (0.5-1.4) mg/dL Estim Creat Clear Calc 104.5 Estimated GFR > 60 Random Glucose 89 (60-115) mg/dL Calcium 8.9 (8.4-10.2) mg/dL Magnesium 2.1 (1.6-2.6) mg/dL Total Bilirubin 0.9 (0.0-1.0) mg/dL AST 18 (5-37) U/L ALT 11 (0-40) U/L Alkaline Phosphatase 95 (39-117) U/L Total Protein 7.6 (6.5-8.0) g/dL Albumin 3.6 (3.5-5.0) g/dL Lipase 18 (8-78) U/L Urine Color Dark Yellow Urine Appearance Turbid Urine pH 8.5 (5.0-9.0) Ur Specific [place] >= 1.030 H (1.005-1.025) Urine Protein 100 (2+) H (Neg-Trace) mg/dL Urine Glucose (UA) Negative (Negative) mg/dL Urine Ketones Trace (Negative) mg/dL Urine Blood Small (1+) H (Negative) Urine Nitrite Positive H (Negative) Ur Leukocyte Esterase Large (3+) H (Negative) Urine RBC 11-20 H (0-2) /HPF Urine WBC >50 H (0-5) /HPF Ur Squamous Epith Cells 0-2 (0-2) /HPF Other Crystals Present Urine Bacteria 4+ (None Seen) Hyaline Casts 6-10 (0-2) /LPF Independent Interpretation I performed an independent interpretation of an: CT Scan Radiology Impression Discussion of test interpretation with radiology: I have reviewed the radiologist's reading. External Record Review External record reviewed: Inpatient record, Office record, Outpatient record, Prior outpatient labs, Prior outpatient radiology, Primary care record and Outside ED record Critical Care Time Critical Care Time Critical Care Time: Yes Total Critical Care Time: 45 Attestation: I attest to this time spent taking care of the patient, obtaining history, physical, reviewing labs, imaging, speaking to my attending, speaking to specialist. Discharge Plan Discharge Clinical Impression: Abdominal pain, Constipation, Acute UTI Patient Disposition: Admitted As Inpatient
[2023-10-02 11:16] VITALS: BP 119/51; BP 136/80; PULSE 89; PULSE 90; RESP 16; TEMP 36.6; O2SAT 100; O2SAT 95; BMI 28.1
[2023-10-02 11:20] LABS: MANUAL DIFF FLAG NO
[2023-10-02 11:22] LABS: Basophils Absolute Auto 0.1 X10*3/uL (0.0-0.2); Basophils Percent Auto 0.9 % (0-2); Eosinophils Absolute Auto 0.2 X10*3/uL (0.0-0.4); Eosinophils Percent Auto 2.6 % (0-4); Hematocrit 43.8 % (42.0-52.0); Hemoglobin 14.3 g/dl (14.0-18.0); Imm Gran Abs Auto 0.02 X10*3/uL (0.00-0.03); Imm Gran Pct Auto 0.3 % (0.0-0.4); Lymphocytes Absolute Auto 1.3 X10*3/uL (1.2-4.9); Lymphocytes Percent Auto 21.6 % (20-40); Mean Corpuscular HGB Conc 32.6 g/dl (31.0-36.0); Mean Corpuscular Hemoglobin 30.4 pg (27.0-33.0); Mean Platelet Volume 10.2 fL (9.4-12.4); Monocytes Absolute Auto 0.5 X10*3/uL (0.1-1.2); Monocytes Percent Auto 9.2 % (2-11); Neutrophils Absolute Auto 3.8 x10*3/uL (2.0-8.3); Neutrophils Percent Auto 65.4 % (45-73); Platelet Count 185 X10*3/uL (160-400); Red Blood Count 4.71 X10*6/uL (4.60-5.80); Red Cell Distribution Width 13.3 % (11.0-16.0); White Blood Count 5.8 X10*3/uL (4.8-10.8)
[2023-10-02 11:43] LABS: Alanine Aminotransferase 11 U/L (0-40); Albumin Level 3.6 g/dL (3.5-5.0); Alkaline Phosphatase 95 U/L (39-117); Anion Gap 14 (12-20); Aspartate Amino Transferase 18 U/L (5-37); Bilirubin Total 0.9 mg/dL (0.0-1.0); Blood Urea Nitrogen 19 mg/dL (9-16); Calcium 8.9 mg/dL (8.4-10.2); Carbon Dioxide 19 mmol/L (22-29); Chloride 104 mmol/L (96-108); Creatinine Clr Calc Pharmacy 104.5; Estimated Glomerular Filt Rate > 60; Glucose Random 89 mg/dL (60-115); Lipase 18 U/L (8-78); Magnesium 2.1 mg/dL (1.6-2.6); Potassium 4.4 mmol/L (3.3-5.1); Sodium 133 mmol/L (135-145); Total Protein 7.6 g/dL (6.5-8.0)
[2023-10-02 15:24] VITALS: BP 127/70; PULSE 92; RESP 16; O2SAT 99
[2023-10-02 15:55] VITALS: BP 124/69; PULSE 85; RESP 18; TEMP 36.5; O2SAT 99
[2023-10-02] MEDS: LORazepam 2 MG/ML VIAL 0.5 MG IVPUSH (17:30)
[2023-10-02] MEDS: Morphine Sulfate 4 MG/ML CARTRIDGE IVPUSH (17:32)
[2023-10-02 17:33] VITALS: BP 128/68; PULSE 76; RESP 18; O2SAT 98
[2023-10-02 17:47] LABS: Alanine Aminotransferase 10 U/L (0-40); Albumin Level 3.7 g/dL (3.5-5.0); Alkaline Phosphatase 98 U/L (39-117); Anion Gap 12 (12-20); Aspartate Amino Transferase 14 U/L (5-37); Blood Urea Nitrogen 18 mg/dL (9-16); Calcium 8.9 mg/dL (8.4-10.2); Carbon Dioxide 23 mmol/L (22-29); Chloride 103 mmol/L (96-108); Creatinine Clr Calc Pharmacy 109.5; Estimated Glomerular Filt Rate > 60; Glucose Random 77 mg/dL (60-115); Potassium 3.9 mmol/L (3.3-5.1); Sodium 134 mmol/L (135-145); Total Protein 7.4 g/dL (6.5-8.0)
--- NOTE | 2023-10-02 17:47 | PM.IMHP ---
History of Present Illness Date of Service: 10/02/23 Attending physician on admission: Bijal Brown Chief Complaint: decreased ostomy output 68-year-old male with history of peripheral artery disease s/p LLE amputation, paroxysmal atrial fibrillation on Eliquis, history of diverticulitis s/p colostomy, neurogenic bladder with chronic Napier catheter presented to the ED earlier today via EMS due to diffuse abdominal pain ongoing for 2 weeks as well as decreased ostomy output ongoing for 3 days. He reports associated nausea but no vomiting. Reports he feels his intestines are clogged due to corn intake. States appearance of ostomy output has otherwise remain unchanged without any melena or hematochezia. He is currently being treated for VRE/Proteus UTI sensitive to Macrobid. Denies any fevers, chills, vomiting, melena, hematochezia, dysuria, hematuria, increased urinary frequency/urgency, shortness of breath, chest pain. On arrival, vital signs stable. There is no leukocytosis. Renal function baseline, electrolyte levels normal except mild hyponatremia of 134. Urinalysis significant for 3+ leukocytes, positive nitrites, 1+ blood, positive urinary sediment, 4+ bacteria. CT abdomen/pelvis negative for any acute intra-abdominal abnormality. No obstruction, stable, chronic appearing postoperative changes, otherwise unremarkable. In the ED, given PO amoxicillin, morphine, lorazepam. Review of Systems Review of Systems: General: No fevers, malaise, unintentional weight loss HEENT: No blurred vision, diplopia. No sore throat, nasal congestion, rhinorrhea, sinus pain, ear pain Cardiovascular: No chest pain, palpitations, or leg edema Respiratory: No shortness of breath, wheezing, cough GI: +abd pain, +nausea, +decreased ostomy output. No vomiting, diarrhea, constipation, melena, hematochezia : No dysuria, hematuria, increased urinary frequency, decreased urinary output MSK: No myalgia, back pain Neuro: No headaches, weakness, paresthesias Skin: No rashes or lesions [facility] Medical History Chronic indwelling Napier catheter Atrial fibrillation with slow ventricular response Left below-knee amputee Chronic indwelling Napier catheter Elevated cholesterol Muscle weakness Embolism Atrial fibrillation Essential hypertension Major depressive disorder COVID Surgical History S/P colostomy H/O colonoscopy Hx of cholecystectomy History of AAA (abdominal aortic aneurysm) repair Social History Household Members: Caregiver 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 Housing: House Are you a primary pharmacy customer care specialist to a significant other at home: No Do you presently have visiting nurse or other home services: Yes Alcohol intake: former Patient Tobacco Use Status: Former Tobacco user Quit Date: age 48's Tobacco use type: Cigarette Advance Directives: Yes Advance Directives on File: Yes Advance Directives Date on File: 04/08/21 service: No Current occupational status: disabled Meds Allergies Allergy/AdvReac Type Severity Reaction Status Date / Time No Known Allergies Allergy Verified 09/27/23 11:34 [No Known Allergies*] Active Medications: Current Medications Acetaminophen (Acetaminophen 325 Mg Tablet) 650 mg PO Q6H PRN PRN Reason: Pain, Mild (Pain Scale 1-3) Ondansetron HCl (Ondansetron Hcl 4 Mg/2 Ml Vial) 4 mg IVPUSH Q8H PRN PRN Reason: Nausea and Vomiting Senna (Sennosides 8.6 Mg Tablet) 17.2 mg PO BEDTIME PRN PRN Reason: Constipation Sodium Chloride (0.9 % Sodium Chloride Flush 3 Ml Syringe) 3 ml IVFLUSH [facility] Home Medications Medication Instructions Recorded Confirmed Last Taken Type apixaban 5 mg tablet (Eliquis) 1 tab PO BID 04/07/21 07/25/23 07/24/23 History atorvastatin 20 mg tablet 1 tab PO DAILY 04/07/21 07/25/23 07/24/23 History furosemide 20 mg tablet 1 tab PO BID 04/07/21 07/25/23 07/24/23 History metoprolol tartrate 25 mg tablet 0.5 tab PO BID 07/02/21 07/25/23 07/24/23 History fluoxetine 40 mg capsule 40 mg PO DAILY 07/25/23 07/25/23 07/24/23 History Physical Exam Vital Signs and Narrative: Vital Signs: Last Vital Signs Temp 97.7 F 10/02/23 15:55 Pulse 76 10/02/23 17:33 Resp 18 10/02/23 17:33 BP 128/68 10/02/23 17:33 Pulse Ox 98 10/02/23 17:33 O2 Del Method Room Air 10/02/23 17:33 BMI result Body Mass Index 28.1 Constitutional - Awake and Alert, No apparent distress Eyes - PERRLA, EOMI Cardiovascular - S1S2, RRR, No edema Respiratory - Normal lung expansion, Normal respiratory effort, No respiratory distress, CTA bilaterally Gastrointestinal - mild diffuse abd ttp wihtout guarding or rebound. ND; +BS. Ostomy in place with light brown/yellow soft output Extremities - no calf tenderness bilaterally, no swelling Skin - Warm/Dry Neurological - Alert & oriented x3 Psychological - Appropriate affect Results Labs 10/02/23 11:17 10/02/23 11:17 Labs: Laboratory Results - last 24 hr 10/02/23 10/02/23 10/02/23 11:17 15:25 17:19 MCV 93.0 MCH 30.4 MCHC 32.6 RDW 13.3 Plt Count 185 MPV 10.2 Immature Gran % (Auto) 0.3 Neut % (Auto) 65.4 Lymph % (Auto) 21.6 [place] % (Auto) 9.2 Eos % (Auto) 2.6 Baso % (Auto) 0.9 Lymph # (Auto) 1.3 [place] # (Auto) 0.5 Eos # (Auto) 0.2 Baso # (Auto) 0.1 Abs Immat Gran (auto) 0.02 Absolute Neuts (auto) 3.8 Absolute Nucleated RBC 0.000 Nucleated RBC % (auto) 0.0 Anion Gap 14 Estim Creat Clear Calc 104.5 Estimated GFR > 60 Random Glucose 89 Lactic Acid 1.0 Calcium 8.9 Magnesium 2.1 Total Bilirubin 0.9 AST 18 ALT 11 Alkaline Phosphatase 95 Total Protein 7.6 Albumin 3.6 Lipase 18 Urine Color Dark Yellow Urine Appearance Turbid Urine pH 8.5 Ur Specific [place] >= 1.030 H Urine Protein 100 (2+) H Urine Glucose (UA) Negative Urine Ketones Trace Urine Blood Small (1+) H Urine Nitrite Positive H Ur Leukocyte Esterase Large (3+) H Urine RBC 11-20 H Urine WBC >50 H Ur Squamous Epith Cells 0-2 Other Crystals Present Urine Bacteria 4+ Hyaline Casts 6-10 Imaging Radiologist's Impressions: Impressions Abdomen/Pelvis CT 10/02/23 15:24 IMPRESSION: Chronic appearing and postoperative changes as described. I do not appreciate any acute intra-abdominal process when compared to the 07/24/2023 study. Assessment and Plan (1) UTI (urinary tract infection) due to urinary indwelling Napier catheter: Status: Acute Plan 68-year-old male with history of peripheral artery disease s/p LLE amputation, paroxysmal atrial fibrillation on Eliquis, history of diverticulitis s/p colostomy, neurogenic bladder with chronic Napier catheter admitted for further management of VRE UTI having failed outpt therapy. #Acute Napier catheter associated UTI-present on admission -urine culture 09/17 positive for proteus sensitive to ceftriaxone and VRE sensitive to macrobid on 09/17, treated with ceftin and macrobid -UA today with 3+ leukocytes, positive nitrites, 1+ blood, positive urinary sediment, 4+ bacteria -IV ampicillin 2g q6h (initiated 10/02) -change Napier catheter -infectious disease consult # acute abdominal pain -CT abdomen/pelvis negative for any acute intra-abdominal abnormality -abd exam benign -reports decreased ostomy output. Will monitor osteo output -ostomy care # paroxysmal atrial fibrillation-rate controlled -continue Eliquis for anticoagulation -continue metoprolol for rate control # neurogenic bladder -Napier catheter as above # mood disorder -continue home meds DVT prophylaxis-Eliquis Full code Patient requires inpatient stay at least 2 midnights due to Napier catheter associated VRE UTI having failed outpatient therapy requiring IV antibiotics and expert consultation Quality Stroke Does the patient have a stroke diagnosis?: No VTE Prior VTE?: No VTE Risk Level:: Medical - moderate - high VTE Device Contraindication: Treatment Not Indicated VTE Drug Contraindication: N/A - Med Ordered
--- NOTE | 2023-10-02 18:07 | PHA.MEDREC ---
Pharmacy Consult ? Medication Reconciliation Pharmacy has completed the medication reconciliation. Patient has not filled medications recently. Patient confirmed medication based on previous history. Patient confirmed fluoxetine, atorvastatin and furosemide all last filled 06/21/23 x 90 days, metoprolol last filled x 30 days and Elqiuis last filled 03/23/23 x 90 days. Patient reported he has not taken Eliquis for a couple days in case he needed surgery. Called pharmacy to confirm when Eliqius was last dispensed and they confirmed in February how patient does have a prescription waiting to be picked up but it has a $2,000 co-pay. Patient was unsure about Gemtesa therefore removed from his list as it was lst filled 04/14/23. Patient is not adherent to his medications. Angela Dixon, AbenaD
[2023-10-02] MEDS: Ampicillin Sodium 2 GM in 0.9 % Sodium Chloride 100 ML IV (18:22)
[2023-10-02 20:33] VITALS: BP 102/55; PULSE 73; RESP 18; O2SAT 96
[2023-10-03] MEDS: Ampicillin Sodium 2 GM in 0.9 % Sodium Chloride 100 ML IV ×3 (00:24→12:13)
[2023-10-03 05:14] VITALS: BP 128/70; PULSE 76; RESP 14; TEMP 36.2; O2SAT 98
[2023-10-03 07:40] VITALS: BP 131/67; PULSE 76; RESP 16; TEMP 36.4; O2SAT 100
[2023-10-03] MEDS: Acetaminophen 325 MG TABLET 650 MG PO (08:13)
[2023-10-03] MEDS: 0.9 % Sodium Chloride Flush 3 ML SYRINGE IVFLUSH ×3 (08:13→23:38)
[2023-10-03 09:56] LABS: Hematocrit 42.8 % (42.0-52.0); Mean Corpuscular HGB Conc 32.7 g/dl (31.0-36.0); Mean Corpuscular Hemoglobin 30.6 pg (27.0-33.0); Mean Corpuscular Volume 93.7 fL (80.0-98.0); Mean Platelet Volume 10.5 fL (9.4-12.4); Platelet Count 193 X10*3/uL (160-400); Red Blood Count 4.57 X10*6/uL (4.60-5.80); Red Cell Distribution Width 13.4 % (11.0-16.0); White Blood Count 5.8 X10*3/uL (4.8-10.8)
--- NOTE | 2023-10-03 09:57 | HO.PM.IMPN ---
Subjective Subjective Date of Service: 10/03/23 Interval History: Seen in follow up for decreased stoma output, VRE UTI Interval history: Reporting mild diffuse abd pain and anxiety. No other complaints. No overnight events Review of Systems Review of Systems: Yes all other systems are reviewed and are negative Physical Exam Vital Signs: Vital Signs: Last Vital Signs Temp 97.6 F 10/03/23 07:40 Pulse 76 10/03/23 07:40 Resp 16 10/03/23 07:40 BP 131/67 10/03/23 07:40 Pulse Ox 100 10/03/23 07:40 O2 Del Method Room Air 10/03/23 07:40 BMI result Body Mass Index 28.1 Constitutional - Awake and Alert, No apparent distress Eyes - PERRLA, EOMI Cardiovascular - S1S2, RRR, No edema Respiratory - Normal lung expansion, Normal respiratory effort, No respiratory distress, CTA bilaterally Gastrointestinal - softly distended, mild diffuse tenderness to palpation, +BS; Vela red stoma with some hard stool and soft light brown output. No rebound or guarding Extremities - no calf tenderness bilaterally, no swelling Skin - Warm/Dry Neurological - Alert & oriented x3 Psychological - Appropriate affect Objective Data Active Medications Acetaminophen (Acetaminophen 325 Mg Tablet) 650 mg PO Q6H PRN PRN Reason: Pain, Mild (Pain Scale 1-3) Last Admin: 10/03/23 08:13 Dose: 650 mg Documented By: LUANNE Ampicillin Sodium 2 gm/ Sodium (Chloride) 100 mls @ 200 mls/hr IV Q6H [facility] Last Infusion: 10/03/23 06:22 Dose: Infused Documented By: MARJAN Ondansetron HCl (Ondansetron Hcl 4 Mg/2 Ml Vial) 4 mg IVPUSH Q8H PRN PRN Reason: Nausea and Vomiting Senna (Sennosides 8.6 Mg Tablet) 17.2 mg PO BEDTIME PRN PRN Reason: Constipation Sodium Chloride (0.9 % Sodium Chloride Flush 3 Ml Syringe) 3 ml IVFLUSH QSHIFT [facility] Last Admin: 10/03/23 08:13 Dose: 3 ml Documented By: LUANNE Labs 10/03/23 09:41 10/03/23 09:41 Labs: Laboratory Results - last 24 hr 10/02/23 10/02/23 10/02/23 11:17 15:25 17:19 MCV 93.0 MCH 30.4 MCHC 32.6 RDW 13.3 Plt Count 185 MPV 10.2 Immature Gran % (Auto) 0.3 Neut % (Auto) 65.4 Lymph % (Auto) 21.6 [place] % (Auto) 9.2 Eos % (Auto) 2.6 Baso % (Auto) 0.9 Lymph # (Auto) 1.3 [place] # (Auto) 0.5 Eos # (Auto) 0.2 Baso # (Auto) 0.1 Abs Immat Gran (auto) 0.02 Absolute Neuts (auto) 3.8 Absolute Nucleated RBC 0.000 Nucleated RBC % (auto) 0.0 Anion Gap 14 12 Estim Creat Clear Calc 104.5 109.5 Estimated GFR > 60 > 60 Random Glucose 89 77 Lactic Acid 1.0 Calcium 8.9 8.9 Magnesium 2.1 Total Bilirubin 0.9 1.0 AST 18 14 ALT 11 10 Alkaline Phosphatase 95 98 Total Protein 7.6 7.4 Albumin 3.6 3.7 Lipase 18 Urine Color Dark Yellow Urine Appearance Turbid Urine pH 8.5 Ur Specific [place] >= 1.030 H Urine Protein 100 (2+) H Urine Glucose (UA) Negative Urine Ketones Trace Urine Blood Small (1+) H Urine Nitrite Positive H Ur Leukocyte Esterase Large (3+) H Urine RBC 11-20 H Urine WBC >50 H Ur Squamous Epith Cells 0-2 Other Crystals Present Urine Bacteria 4+ Hyaline Casts 6-10 Microbiology Microbiology Results: Microbiology 10/02/23 15:47 Urine Culture - Final Urine clean catch - Urine means top Assessment and Plan (1) UTI (urinary tract infection) due to urinary indwelling Napier catheter: Status: Acute (2) Constipation: Status: Acute Plan 68-year-old male with history of peripheral artery disease s/p LLE amputation, paroxysmal atrial fibrillation on Eliquis, history of diverticulitis s/p colostomy, neurogenic bladder with chronic Napier catheter admitted for further management of VRE UTI having failed outpt therapy. #Acute Napier catheter associated UTI-present on admission -urine culture 09/17 positive for Proteus sensitive to ceftriaxone and VRE sensitive to macrobid on 09/17, treated with ceftin and macrobid -UA today with 3+ leukocytes, positive nitrites, 1+ blood, positive urinary sediment, 4+ bacteria -Per ID, change to PO amoxicillin 500mg TID x10-14 days -Napier catheter -infectious disease consult # acute abdominal pain -CT abdomen/pelvis negative for any acute intra-abdominal abnormality -abd exam benign, suspect constipation -reports decreased ostomy output. Per general surgery, no stoma obstruction. Recommends miralax and clear liquid diet -ostomy care -general surgery input appreciated # paroxysmal atrial fibrillation-rate controlled -continue Eliquis for anticoagulation -continue metoprolol for rate control # neurogenic bladder -Napier catheter as above # mood disorder -continue home meds DVT prophylaxis-Eliquis Full code Patient requires inpatient stay at least 2 midnights due to Napier catheter associated VRE UTI having failed outpatient therapy requiring IV antibiotics and expert consultation Quality Stroke Does the patient have a stroke diagnosis?: No VTE Prior VTE?: No VTE Risk Level:: Medical - moderate - high VTE Device Contraindication: Treatment Not Indicated VTE Drug Contraindication: N/A - Med Ordered
[2023-10-03 10:15] LABS: Anion Gap 11 (12-20); Blood Urea Nitrogen 18 mg/dL (9-16); Calcium 8.8 mg/dL (8.4-10.2); Carbon Dioxide 24 mmol/L (22-29); Chloride 107 mmol/L (96-108); Creatinine Clr Calc Pharmacy 94.3; Estimated Glomerular Filt Rate > 60; Glucose Random 158 mg/dL (60-115); Potassium 3.8 mmol/L (3.3-5.1); Sodium 138 mmol/L (135-145)
[2023-10-03] MEDS: polyethylene glycoL 3350 17 GM POWD.PACK PO (12:13)
[2023-10-03] MEDS: FLUoxetine HCl 20 MG CAPSULE 40 MG PO (14:00)
[2023-10-03] MEDS: LORazepam 2 MG/ML VIAL 0.5 MG IVPUSH (14:00)
--- NOTE | 2023-10-03 14:11 | MHC.CM.PN ---
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
[2023-10-03 15:00] VITALS: BP 102/53; PULSE 78; RESP 18; TEMP 36.7; O2SAT 99
--- NOTE | 2023-10-03 15:50 | P.CONGS_ITS ---
History of Present Illness Consult details Consult date: 10/03/23 Reason for consult: other Requesting physician: Aleksandra Cason Narrative: The pt is a 68 year old male with previous history of perforated dieverticulitis and has a Rajendra procedure and end colostomy with moderate parastomal hernia. Has a history of peripheral artery disease s/p LLE amputation, paroxysmal atrial fibrillation on Eliquis, history of diverticulitis s/p colostomy, neurogenic bladder with chronic Napier catheter admitted for further management of VRE UTI having failed outpt therapy. Pt has been here and on diet but has not had much out of colostomy for the last 3 days. He had a CT scan yesterday which did not show any evidence of obstruction but did show the colostomy with small bowel loops present. Review of Systems 2 Review of Systems: Yes all other systems are reviewed and are negative PMFSH Past Medical History Medical History Chronic indwelling Napier catheter Atrial fibrillation with slow ventricular response Left below-knee amputee Chronic indwelling Napier catheter Elevated cholesterol Muscle weakness Embolism Atrial fibrillation Essential hypertension Major depressive disorder COVID Surgical History Surgical History S/P colostomy H/O colonoscopy Hx of cholecystectomy History of AAA (abdominal aortic aneurysm) repair Social History Social History Household Members: None Household Members Other:: 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 If so, by whom?: No Do you feel safe in your current relationship?: No Current Relationship Is there a partner from a previous relationship who is making you feel unsafe now?: No Are you made to feel afraid or neglected: No Advance Directives: Yes Advance Directives on File: Yes Advance Directives Date on File: 04/08/21 Do you have thoughts of harming others: None Do you have a plan to hurt others: No Plan Recently lost weight without trying: No Eating poorly because of decreased appetite: No Nutrition Risks: No Nutritional Risk Poor oral hygiene: No service: No Current occupational status: disabled Meds Allergies Allergy/AdvReac Type Severity Reaction Status Date / Time No Known Allergies Allergy Verified 09/27/23 11:34 [No Known Allergies*] Active Medications: Current Medications Acetaminophen (Acetaminophen 325 Mg Tablet) 650 mg PO Q6H PRN PRN Reason: Pain, Mild (Pain Scale 1-3) Last Admin: 10/03/23 08:13 Dose: 650 mg Amoxicillin (Amoxicillin 500 Mg Capsule) 500 mg PO TID [facility] Apixaban (Apixaban 5 Mg Tablet) 5 mg PO BID [facility] Atorvastatin Calcium (Atorvastatin Calcium 20 Mg Tablet) 20 mg PO DAILY [facility] Fluoxetine HCl (Fluoxetine Hcl 20 Mg Capsule) 40 mg PO DAILY [facility] Last Admin: 10/03/23 14:00 Dose: 40 mg Furosemide (Furosemide 20 Mg Tablet) 20 mg PO BID [facility]; Protocol Last Admin: 10/03/23 13:52 Dose: Not Given Metoprolol Tartrate (Metoprolol Tartrate 12.5 Mg Halftab) 12.5 mg PO BID [facility]; Protocol Last Admin: 10/03/23 13:52 Dose: Not Given Ondansetron HCl (Ondansetron Hcl 4 Mg/2 Ml Vial) 4 mg IVPUSH Q8H PRN PRN Reason: Nausea and Vomiting Polyethylene Glycol (Polyethylene Glycol 3350 17 Gm Powd.Pack) 17 gm PO DAILY [facility] Last Admin: 10/03/23 12:13 Dose: 17 gm Senna (Sennosides 8.6 Mg Tablet) 17.2 mg PO BEDTIME PRN PRN Reason: Constipation Sodium Chloride (0.9 % Sodium Chloride Flush 3 Ml Syringe) 3 ml IVFLUSH QSHIFT [facility] Last Admin: 10/03/23 08:13 Dose: 3 ml Home Medications Medication Instructions Recorded Confirmed Last Taken Type apixaban 5 mg tablet (Eliquis) 1 tab PO BID 04/07/21 10/02/23 07/24/23 History atorvastatin 20 mg tablet 1 tab PO DAILY 04/07/21 10/02/23 07/24/23 History furosemide 20 mg tablet 1 tab PO BID 04/07/21 10/02/23 07/24/23 History metoprolol tartrate 25 mg tablet 0.5 tab PO BID 07/02/21 10/02/23 07/24/23 History fluoxetine 40 mg capsule 40 mg PO DAILY 07/25/23 10/02/23 07/24/23 History Physical Exam 2 Vital Signs: Vital Signs: Last Vital Signs Temp 98.0 F 10/03/23 15:00 Pulse 78 10/03/23 15:00 Resp 18 10/03/23 15:00 BP 102/53 L 10/03/23 15:00 Pulse Ox 99 10/03/23 15:00 O2 Del Method Room Air 10/03/23 15:00 BMI result Body Mass Index 28.1 Const: General: cooperative, healthy appearing, comfortable and no acute distress GI: Other: abdomen is soft nontender nondistended good active bowel sounds. the pt colostomy bag was taken down and the colostomy digital exam and did not reveal any obstruction and the surrounding small bowel felt soft and non inflamed. the opening into the colon was a little difficult to see as the mucosa prolapsed over itself but not in a manner that caused an obstruction Results Labs 10/03/23 09:41 10/03/23 09:41 Labs: Abnormal lab results 10/02/23 10/03/23 Range/Units 17:19 09:41 RBC 4.57 L (4.60-5.80) X10*6/uL Sodium 134 L (135-145) mmol/L Anion Gap 11 L (12-20) BUN 18 H 18 H (9-16) mg/dL Random Glucose 158 H (60-115) mg/dL Short CBC 10/03/23 Range/Units 09:41 WBC 5.8 (4.8-10.8) X10*3/uL Hgb 14.0 (14.0-18.0) g/dl Hct 42.8 (42.0-52.0) % Plt Count 193 (160-400) X10*3/uL BMP 10/02/23 10/03/23 17:19 09:41 Sodium 134 L 138 Potassium 3.9 3.8 Chloride 103 107 Carbon Dioxide 23 24 BUN 18 H 18 H Creatinine 0.62 0.72 Calcium 8.9 8.8 Liver Function 10/02/23 Range/Units 17:19 Total Bilirubin 1.0 (0.0-1.0) mg/dL AST 14 (5-37) U/L ALT 10 (0-40) U/L Alkaline Phosphatase 98 (39-117) U/L Albumin 3.7 (3.5-5.0) g/dL Urine 10/02/23 Range/Units 15:25 Urine Color Dark Yellow Urine Appearance Turbid Urine pH 8.5 (5.0-9.0) Ur Specific [place] >= 1.030 H (1.005-1.025) Urine Protein 100 (2+) H (Neg-Trace) mg/dL Urine Glucose (UA) Negative (Negative) mg/dL All other labs normal. Imaging Abdomen CT scan report/results: report reviewed and image reviewed CT scan - pelvis: report reviewed and image reviewed Assessment and Plan (1) Colostomy complication: Status: Acute Plan on exam pt has soft nondistended abdomen, nontender around the parastomal hernia very good bowel sounds - the digitalization of the ostomy does not reveal any issues and the surrounding tissue is soft. CT scan not worrisome either. trial of encouraging some miralax will follow along -at some point may consider revison of ostomy if the hernia becomes a repeated issue. Procedures Date of Service Date of Service: 10/03/23
[2023-10-03] MEDS: Amoxicillin 500 MG CAPSULE PO ×2 (16:05→21:41)
--- NOTE | 2023-10-03 17:14 | HO.WOUND ---
Wound Consult: Initial 68yr old male admitted to [facility] on?10/02/23 17:41 - See progress notes and H&P for detailed history. Wound consult placed for Coccyx wound POA. Arrival to bedside pt was agreeable to assessment - reports he has tyreated in the past with out pt [facility] - he reports currently he does not. He reports currently his CROCHET BEADER proved all his care and she packs the two wounds with packing strip and on occasion uses barrier cream. He reports he does have a wheelchair but is often in bed - he was resistant to repositioning with pillows but allowed and reported comfort. Direct care team notified to Turn and reposition Q2 hrs. See below for wound photo and documentation. Buttock and bilateral Ischium right Ischium Left Ischium Sacrum and buttocks Etiology: ??MASD-IAD (Moisture Associated Skin Damage - Incontinence Associated Dermatitis) Wound Bed: pink blanchable erythema - hypopigmentation and scar tissue noted Drainage / Odor: None Edges: ? Irregular [place] wound: ? No Induration, Fluctuance or Warmth noted Pain: denies Goals of Treatment: ? Barrier cream and off load pressure Left Ischium Etiology: ??Stage 4 Pressure Injury Wound Bed: unable to visulaize wound bed Drainage / Odor: scant serosang no odor noted Edges: ? Irregular nonadherent [place] wound: ?pink blanchable erythema - hypopigmentation and scar tissue noted No Induration, Fluctuance or Warmth noted Pain: denies Goals of Treatment: ? Alginate packing and off load pressure Right Ischium Etiology: ??Stage 4 Pressure Injury Wound Bed: unable to visulaize wound bed Drainage / Odor: scant sanguineous no odor noted Edges: ? Irregular nonadherent [place] wound: ?pink blanchable erythema - hypopigmentation and scar tissue noted No Induration, Fluctuance or Warmth noted Pain: denies Goals of Treatment: ? Alginate packing and off load pressure Recommendations: 1. Turn and Reposition every 2 hours and as needed for patient comfort.? Use pillows or wedges to support off loading positions. 2. Off Load all bony prominences with use of pillows and heel boots if needed.? Apply Preventative foams where needed. ? 3. Monitor for incontinence and moisture control, use barrier creams when needed for prevention and treatment. 4. Provide adequate and supplemental nutrition. 5. Order or Continue low air loss mattress. 6. Bilateral Ischium - Off Load Pressure - Cleanse and irrigate with NS, Pat dry.? Apply barrier to periwound, lightly pack with Durafiber AG, be sure to leave a wick to easy removal.? Cover with dry gauze to fill space and Foam dressing.? Change Daily. 7. Buttocks and scrotum - Off Load Pressure - Cleanse with PH balance spray or wipes, pat dry. ?Apply thin layer of [place] to wound bed - only pat and dab no scrub and rub when soiling occurs. Reapply thin layer PRN after each episode of incontinence. Re-consult wound care Nurse for wound deterioration or wound changes.
[2023-10-03 18:38] VITALS: BP 102/61; PULSE 73; RESP 18; TEMP 36.3; O2SAT 97
[2023-10-03] MEDS: Metoprolol Tartrate 12.5 MG HALFTAB PO (21:41)
[2023-10-03] MEDS: Apixaban 5 MG TABLET PO (21:41)
[2023-10-03] MEDS: Furosemide 20 MG TABLET PO (21:41)
[2023-10-03] MEDS: Morphine Sulfate 2 MG/ML CARTRIDGE IVPUSH (22:48)
[2023-10-04 03:23] VITALS: BP 117/69; PULSE 65; RESP 18; TEMP 36.1; O2SAT 99
[2023-10-04 07:31] VITALS: BP 107/52; PULSE 74; RESP 18; TEMP 36.1; O2SAT 98
[2023-10-04] MEDS: Amoxicillin 500 MG CAPSULE PO ×3 (08:33→20:05)
[2023-10-04] MEDS: FLUoxetine HCl 20 MG CAPSULE 40 MG PO (08:33)
[2023-10-04] MEDS: Metoprolol Tartrate 12.5 MG HALFTAB PO (08:33)
[2023-10-04] MEDS: Atorvastatin Calcium 20 MG TABLET PO (08:34)
[2023-10-04] MEDS: Apixaban 5 MG TABLET PO ×2 (08:34→20:05)
[2023-10-04] MEDS: 0.9 % Sodium Chloride Flush 3 ML SYRINGE IVFLUSH ×3 (08:34→20:05)
[2023-10-04] MEDS: polyethylene glycoL 3350 17 GM POWD.PACK PO (08:34)
[2023-10-04] MEDS: Furosemide 20 MG TABLET PO ×2 (08:34→20:05)
[2023-10-04] MEDS: ondansetron HCL 4 MG/2 ML VIAL IVPUSH (08:37)
--- NOTE | 2023-10-04 12:02 | P.PNGS_ITS ---
Subjective Subjective Date of Service: 10/10/23 Interval history: admitted for UTI he is generally bedbound had a colostomy 3 years ago for what he describes as bedsores and diverticular disease says he has had poor output from his stoma x 2 weeks denies abd pain but describes sensation of bloating Physical Exam 2 Vital Signs: Vital Signs: Last Vital Signs Temp 96.9 F 10/04/23 07:31 Pulse 74 10/04/23 07:31 Resp 18 10/04/23 07:31 BP 107/52 L 10/04/23 07:31 Pulse Ox 98 10/04/23 07:31 O2 Del Method Room Air 10/04/23 07:31 BMI result Body Mass Index 28.1 Const: General: comfortable and no acute distress Resp: Effort & Inspection: normal respiratory effort Cardio: Rate: regular rate GI: Other: colostomy on left , nontender, some stool and gas in appliance Palpation (GI): Soft to palpation, not firm, nontender and no guarding Objective Data Active Medications Acetaminophen (Acetaminophen 325 Mg Tablet) 650 mg PO Q6H PRN PRN Reason: Pain, Mild (Pain Scale 1-3) Last Admin: 10/03/23 08:13 Dose: 650 mg Documented By: LUANNE Amoxicillin (Amoxicillin 500 Mg Capsule) 500 mg PO TID [facility] Last Admin: 10/04/23 08:33 Dose: 500 mg Documented By: SAMMY Apixaban (Apixaban 5 Mg Tablet) 5 mg PO BID [facility] Last Admin: 10/04/23 08:34 Dose: 5 mg Documented By: SAMMY Atorvastatin Calcium (Atorvastatin Calcium 20 Mg Tablet) 20 mg PO DAILY [facility] Last Admin: 10/04/23 08:34 Dose: 20 mg Documented By: SAMMY Fluoxetine HCl (Fluoxetine Hcl 20 Mg Capsule) 40 mg PO DAILY [facility] Last Admin: 10/04/23 08:33 Dose: 40 mg Documented By: SAMMY Furosemide (Furosemide 20 Mg Tablet) 20 mg PO BID [facility]; Protocol Last Admin: 10/04/23 08:34 Dose: 20 mg Documented By: SAMMY Metoprolol Tartrate (Metoprolol Tartrate 12.5 Mg Halftab) 12.5 mg PO BID [facility]; Protocol Last Admin: 10/04/23 08:33 Dose: 12.5 mg Documented By: SAMMY Ondansetron HCl (Ondansetron Hcl 4 Mg/2 Ml Vial) 4 mg IVPUSH Q8H PRN PRN Reason: Nausea and Vomiting Last Admin: 10/04/23 08:37 Dose: 4 mg Documented By: SAMMY Polyethylene Glycol (Polyethylene Glycol 3350 17 Gm Powd.Pack) 17 gm PO DAILY [facility] Last Admin: 10/04/23 08:34 Dose: 17 gm Documented By: SAMMY Senna (Sennosides 8.6 Mg Tablet) 17.2 mg PO BEDTIME PRN PRN Reason: Constipation Sodium Chloride (0.9 % Sodium Chloride Flush 3 Ml Syringe) 3 ml IVFLUSH QSHIFT [facility] Last Admin: 10/04/23 08:34 Dose: 3 ml Documented By: SAMMY Labs 10/03/23 09:41 10/03/23 09:41 Microbiology Microbiology Results: Microbiology 10/02/23 17:19 Blood Culture - Preliminary Blood - Venous No growth after 24 hours. 10/02/23 17:14 Blood Culture - Preliminary Blood - Venous No growth after 24 hours. 10/02/23 15:47 Urine Culture - Final Urine clean catch - Urine means top Procedures Date of Service Date of Service: 10/10/23 Progress Note: A&P Assessment and plan (1) Parastomal hernia: Status: Acute Assessment and Plan: I have reviewed his CT does not appear to have signs of obstruction abdl exam in benign not tender around stoma CT picture similar to older CT scan he is concerned about less output the past 2 weeks see how he does with regular diet exam benign Time Spent With Patient Time: Total time managing care of this patient today ____ minutes. Quality Stroke Does the patient have a stroke diagnosis?: No VTE Prior VTE?: No VTE Risk Level:: Medical - moderate - high VTE Device Contraindication: Treatment Not Indicated VTE Drug Contraindication: N/A - Med Ordered
[2023-10-04 15:13] VITALS: BP 112/60; PULSE 62; RESP 18; TEMP 36.3; O2SAT 98
--- NOTE | 2023-10-04 15:25 | P.PNIM_ITS ---
Subjective Subjective Date of Service: 10/04/23 Interval History: Being followed for decreased output from stoma x2 weeks and VRE UTI Patient complaining of nausea, discomfort around stoma, and poor output Review of Systems All other system reviewed and negative Physical Exam 2 Vital Signs: Vital Signs: Last Vital Signs Temp 97.3 F 10/04/23 15:13 Pulse 62 10/04/23 15:13 Resp 18 10/04/23 15:13 BP 112/60 10/04/23 15:13 Pulse Ox 98 10/04/23 15:13 O2 Del Method Room Air 10/04/23 15:13 BMI result Body Mass Index 28.1 Const: Other: Constitutional - Awake and Alert, No apparent distress Cardiovascular - S1S2, RRR, No edema Respiratory - Normal lung expansion, Normal respiratory effort, No respiratory distress, CTA bilaterally Gastrointestinal - non distended, small brown liquidy stool in colostomy bag, bowel sounds audible, parastomal hernia, no guarding, no rigidity Extremities - no swelling Skin - Warm/Dry Neurological - Alert & oriented x3 Psychological - Appropriate affect Objective Data Active Medications Acetaminophen (Acetaminophen 325 Mg Tablet) 650 mg PO Q6H PRN PRN Reason: Pain, Mild (Pain Scale 1-3) Last Admin: 10/03/23 08:13 Dose: 650 mg Documented By: LUANNE Amoxicillin (Amoxicillin 500 Mg Capsule) 500 mg PO TID [facility] Last Admin: 10/04/23 14:54 Dose: 500 mg Documented By: LISA Apixaban (Apixaban 5 Mg Tablet) 5 mg PO BID [facility] Last Admin: 10/04/23 08:34 Dose: 5 mg Documented By: SAMMY Atorvastatin Calcium (Atorvastatin Calcium 20 Mg Tablet) 20 mg PO DAILY [facility] Last Admin: 10/04/23 08:34 Dose: 20 mg Documented By: SAMMY Fluoxetine HCl (Fluoxetine Hcl 20 Mg Capsule) 40 mg PO DAILY [facility] Last Admin: 10/04/23 08:33 Dose: 40 mg Documented By: SAMMY Furosemide (Furosemide 20 Mg Tablet) 20 mg PO BID [facility]; Protocol Last Admin: 10/04/23 08:34 Dose: 20 mg Documented By: SAMMY Metoprolol Tartrate (Metoprolol Tartrate 12.5 Mg Halftab) 12.5 mg PO BID [facility]; Protocol Last Admin: 10/04/23 08:33 Dose: 12.5 mg Documented By: SAMMY Ondansetron HCl (Ondansetron Hcl 4 Mg/2 Ml Vial) 4 mg IVPUSH Q8H PRN PRN Reason: Nausea and Vomiting Last Admin: 10/04/23 08:37 Dose: 4 mg Documented By: SAMMY Polyethylene Glycol (Polyethylene Glycol 3350 17 Gm Powd.Pack) 17 gm PO DAILY [facility] Last Admin: 10/04/23 08:34 Dose: 17 gm Documented By: SAMMY Senna (Sennosides 8.6 Mg Tablet) 17.2 mg PO BEDTIME PRN PRN Reason: Constipation Sodium Chloride (0.9 % Sodium Chloride Flush 3 Ml Syringe) 3 ml IVFLUSH QSHIFT [facility] Last Admin: 10/04/23 14:55 Dose: 3 ml Documented By: KEVIN-KLEIC Labs 10/03/23 09:41 10/03/23 09:41 Microbiology Microbiology Results: Microbiology 10/02/23 17:19 Blood Culture - Preliminary Blood - Venous No growth after 24 hours. 10/02/23 17:14 Blood Culture - Preliminary Blood - Venous No growth after 24 hours. Assessment and Plan (1) UTI (urinary tract infection) due to urinary indwelling Napier catheter: Status: Acute (2) Constipation: Status: Acute Plan 68-year-old male with history of peripheral artery disease s/p LLE amputation, paroxysmal atrial fibrillation on Eliquis, history of diverticulitis s/p colostomy, neurogenic bladder with chronic Napier catheter admitted for further management of VRE UTI having failed outpt therapy. #Acute Napier catheter associated UTI-present on admission -urine culture 09/17 positive for Proteus sensitive to ceftriaxone and VRE sensitive to macrobid on 09/17, treated with ceftin and macrobid -UA 3+ leukocytes, positive nitrites, 1+ blood, positive urinary sediment, 4+ bacteria -Per ID, change to PO amoxicillin 500mg TID x10-14 days, started on October 03 -ch. Napier catheter -infectious disease consult # acute abdominal pain -tolerating clear liquid diet small brown stool and gas in colostomy bag, patient continued to complain of decreased ostomy output -CT abdomen/pelvis negative for any acute intra-abdominal abnormality -abd exam benign, suspect constipation,anxiety -will advance diet to regular , continue MiraLax -general surgery input appreciated, no obstruction noted, recommend to follow ostomy output # paroxysmal atrial fibrillation-rate controlled -continue Eliquis and metoprolol for rate control # neurogenic bladder chronic Napier # mood disorder -continue home meds DVT prophylaxis-Eliquis Full code Patient requires inpatient stay due to Napier catheter associated VRE UTI having failed outpatient therapy requiring IV antibiotics and expert consultation Quality Stroke Does the patient have a stroke diagnosis?: No VTE Prior VTE?: No VTE Risk Level:: Medical - moderate - high VTE Device Contraindication: Treatment Not Indicated VTE Drug Contraindication: N/A - Med Ordered
[2023-10-04] MEDS: LORazepam 0.5 MG TABLET PO (15:54)
--- NOTE | 2023-10-04 16:02 | MHC.CM.PN ---
Per rounds no discharge today. DP home with resumption of [employer] services. Pt will transport via BLS.
[2023-10-04 19:38] VITALS: BP 100/55; PULSE 75; RESP 18; TEMP 36.2; O2SAT 96
--- NOTE | 2023-10-04 22:52 | P.CNID_ITS ---
History of Present Illness Data of Consult Service Date: 10/04/23 Requesting physician: Aleksandra Cason Primary Care Provider: Unknown Physician HPI Reason for consult: possible urinary infection He presents with 3/10 discomfort in bladder area. He has no fever or chills. He has thought colostomy was blocked since no stool in it for several days so came in. He has dark urine from Napier. He said he gets UTIs and is supposed to get a suprapubic catheter. He is a poor historian. Review of Systems 2 Review of Systems: Yes all other systems are reviewed and are negative [facility] Past Medical History Medical History Parastomal hernia Chronic indwelling Napier catheter Atrial fibrillation with slow ventricular response Left below-knee amputee Chronic indwelling Napier catheter Elevated cholesterol Muscle weakness Embolism Atrial fibrillation Essential hypertension Major depressive disorder COVID Family History Family history: reviewed and not pertinent Surgical History Surgical History S/P colostomy H/O colonoscopy Hx of cholecystectomy History of AAA (abdominal aortic aneurysm) repair Social History Social History Household Members: None Household Members Other:: 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 If so, by whom?: No Do you feel safe in your current relationship?: No Current Relationship Is there a partner from a previous relationship who is making you feel unsafe now?: No Are you made to feel afraid or neglected: No Advance Directives: Yes Advance Directives on File: Yes Advance Directives Date on File: 04/08/21 Do you have thoughts of harming others: None Do you have a plan to hurt others: No Plan Recently lost weight without trying: No Eating poorly because of decreased appetite: No Nutrition Risks: No Nutritional Risk Poor oral hygiene: No service: No Current occupational status: disabled Meds Allergies Allergy/AdvReac Type Severity Reaction Status Date / Time No Known Allergies Allergy Verified 09/27/23 11:34 [No Known Allergies*] Active Medications: Current Medications Acetaminophen (Acetaminophen 325 Mg Tablet) 650 mg PO Q6H PRN PRN Reason: Pain, Mild (Pain Scale 1-3) Last Admin: 10/03/23 08:13 Dose: 650 mg Amoxicillin (Amoxicillin 500 Mg Capsule) 500 mg PO TID [facility] Last Admin: 10/04/23 20:05 Dose: 500 mg Apixaban (Apixaban 5 Mg Tablet) 5 mg PO BID [facility] Last Admin: 10/04/23 20:05 Dose: 5 mg Atorvastatin Calcium (Atorvastatin Calcium 20 Mg Tablet) 20 mg PO DAILY [facility] Last Admin: 10/04/23 08:34 Dose: 20 mg Fluoxetine HCl (Fluoxetine Hcl 20 Mg Capsule) 40 mg PO DAILY [facility] Last Admin: 10/04/23 08:33 Dose: 40 mg Furosemide (Furosemide 20 Mg Tablet) 20 mg PO BID [facility]; Protocol Last Admin: 10/04/23 20:05 Dose: 20 mg Lorazepam (Lorazepam 0.5 Mg Tablet) 0.5 mg PO DAILY PRN PRN Reason: Anxiety Last Admin: 10/04/23 15:54 Dose: 0.5 mg Metoprolol Tartrate (Metoprolol Tartrate 12.5 Mg Halftab) 12.5 mg PO BID [facility]; Protocol Last Admin: 10/04/23 20:09 Dose: Not Given Ondansetron HCl (Ondansetron Hcl 4 Mg/2 Ml Vial) 4 mg IVPUSH Q8H PRN PRN Reason: Nausea and Vomiting Last Admin: 10/04/23 08:37 Dose: 4 mg Polyethylene Glycol (Polyethylene Glycol 3350 17 Gm Powd.Pack) 17 gm PO DAILY [facility] Last Admin: 10/04/23 08:34 Dose: 17 gm Senna (Sennosides 8.6 Mg Tablet) 17.2 mg PO BEDTIME PRN PRN Reason: Constipation Sodium Chloride (0.9 % Sodium Chloride Flush 3 Ml Syringe) 3 ml IVFLUSH QSHIFT [facility] Last Admin: 10/04/23 20:05 Dose: 3 ml Home Medications Medication Instructions Recorded Confirmed Last Taken Type apixaban 5 mg tablet (Eliquis) 1 tab PO BID 04/07/21 10/02/23 07/24/23 History atorvastatin 20 mg tablet 1 tab PO DAILY 04/07/21 10/02/23 07/24/23 History furosemide 20 mg tablet 1 tab PO BID 04/07/21 10/02/23 07/24/23 History metoprolol tartrate 25 mg tablet 0.5 tab PO BID 07/02/21 10/02/23 07/24/23 History fluoxetine 40 mg capsule 40 mg PO DAILY 07/25/23 10/02/23 07/24/23 History Physical Exam 2 Vital Signs: Vital Signs: Last Vital Signs Temp 97.1 F 10/04/23 19:38 Pulse 75 10/04/23 19:38 Resp 18 10/04/23 19:38 BP 100/55 L 10/04/23 19:38 Pulse Ox 96 10/04/23 19:38 O2 Del Method Room Air 10/04/23 19:38 BMI result Body Mass Index 28.1 Const: General: cooperative HEENT: Head: Yes normal to inspection Face and sinus: Yes normal facial exam Mouth: Normal oral and palatal mucosa present Teeth and gingiva: d entition normal Eyes: General: appearance normal, both eyes and all related structures P upils: Equal, round and reactive pupils present Resp: Effort & Inspection: normal respiratory effort Cardio: Rate: regular rate Rhythm: regular rhythm GI: Palpation (GI): Soft to palpation and nontender : Other: has catheter General: Yes no CVA tenderness Back/Spine/Pelvis: Back: no CVA tenderness Skin: General skin exam: no rashes or lesions noted Neuro: General: moves all extremities Cranial nerves: Yes Equal, round and reactive pupils present Extrem: General: Yes normal to inspection Psych: Appearance: grossly normal Results Labs 10/03/23 09:41 10/03/23 09:41 Microbiology Microbiology Results: Microbiology 10/02/23 17:19 Blood - Venous Blood Culture - Preliminary No growth after 48 hours. 10/02/23 17:14 Blood - Venous Blood Culture - Preliminary No growth after 48 hours. 10/02/23 15:47 Urine clean catch - Urine means top Urine Culture - Final Assessment and Plan (1) Colostomy complication: Status: Acute (2) UTI (urinary tract infection) due to urinary indwelling Napier catheter: Status: Acute He has improvement in complaints since relieving constipation but may also have some minor component of urinary tract infection (3) Acute UTI: Status: Acute Plan Would give po Amoxicillin 500 mg tid for 10 days cover both VRE and proteus mirabilis found most recently. Continue follow Urology ?suprapubic catheter.
[2023-10-05 03:25] VITALS: BP 98/56; PULSE 65; RESP 16; TEMP 36.4; O2SAT 95
[2023-10-05 07:53] VITALS: BP 101/55; PULSE 88; RESP 18; TEMP 36.3; O2SAT 95
--- NOTE | 2023-10-05 07:59 | PM.PNGS ---
Subjective Subjective Date of Service: 10/05/23 Interval history: feels well denies abdl pain tolerating diet stoma with good output Physical Exam Vital Signs: Vital Signs: Last Vital Signs Temp 97.3 F 10/05/23 07:53 Pulse 88 10/05/23 07:53 Resp 18 10/05/23 07:53 BP 101/55 L 10/05/23 07:53 Pulse Ox 95 10/05/23 07:53 O2 Del Method Room Air 10/05/23 07:53 BMI result Body Mass Index 28.1 Const: General: comfortable and no acute distress Resp: Effort & Inspection: normal respiratory effort Cardio: Rate: regular rate GI: Other: colostomy with good output Palpation (GI): Soft to palpation, not firm, nontender and no guarding Objective Data Active Medications Acetaminophen (Acetaminophen 325 Mg Tablet) 650 mg PO Q6H PRN PRN Reason: Pain, Mild (Pain Scale 1-3) Last Admin: 10/03/23 08:13 Dose: 650 mg Documented By: LUANNE Amoxicillin (Amoxicillin 500 Mg Capsule) 500 mg PO TID [facility] Last Admin: 10/04/23 20:05 Dose: 500 mg Documented By: CADY Apixaban (Apixaban 5 Mg Tablet) 5 mg PO BID [facility] Last Admin: 10/04/23 20:05 Dose: 5 mg Documented By: CADY Atorvastatin Calcium (Atorvastatin Calcium 20 Mg Tablet) 20 mg PO DAILY [facility] Last Admin: 10/04/23 08:34 Dose: 20 mg Documented By: SAMMY Fluoxetine HCl (Fluoxetine Hcl 20 Mg Capsule) 40 mg PO DAILY [facility] Last Admin: 10/04/23 08:33 Dose: 40 mg Documented By: SAMMY Furosemide (Furosemide 20 Mg Tablet) 20 mg PO BID [facility]; Protocol Last Admin: 10/04/23 20:05 Dose: 20 mg Documented By: CADY Lorazepam (Lorazepam 0.5 Mg Tablet) 0.5 mg PO DAILY PRN PRN Reason: Anxiety Last Admin: 10/04/23 15:54 Dose: 0.5 mg Documented By: LISA Metoprolol Tartrate (Metoprolol Tartrate 12.5 Mg Halftab) 12.5 mg PO BID [facility]; Protocol Last Admin: 10/04/23 20:09 Dose: Not Given Documented By: CADY Non-Admin Reason: Decreased Blood Pressure Ondansetron HCl (Ondansetron Hcl 4 Mg/2 Ml Vial) 4 mg IVPUSH Q8H PRN PRN Reason: Nausea and Vomiting Last Admin: 10/04/23 08:37 Dose: 4 mg Documented By: SAMMY Polyethylene Glycol (Polyethylene Glycol 3350 17 Gm Powd.Pack) 17 gm PO DAILY [facility] Last Admin: 10/04/23 08:34 Dose: 17 gm Documented By: SAMMY Senna (Sennosides 8.6 Mg Tablet) 17.2 mg PO BEDTIME PRN PRN Reason: Constipation Sodium Chloride (0.9 % Sodium Chloride Flush 3 Ml Syringe) 3 ml IVFLUSH QSHIFT [facility] Last Admin: 10/04/23 20:05 Dose: 3 ml Documented By: CADY Labs 10/03/23 09:41 10/03/23 09:41 Microbiology Microbiology Results: Microbiology 10/02/23 17:19 Blood Culture - Preliminary Blood - Venous No growth after 48 hours. 10/02/23 17:14 Blood Culture - Preliminary Blood - Venous No growth after 48 hours. Procedures Date of Service Date of Service: 10/05/23 Progress Note: A&P Assessment and plan (1) Parastomal hernia: Status: Acute Assessment and Plan: chronic not obstructed CT without any new findings abd soft and benign stoma functioning well ok to dc home Time Spent With Patient Time: Total time managing care of this patient today ____ minutes. Quality Stroke Does the patient have a stroke diagnosis?: No VTE Prior VTE?: No VTE Risk Level:: Medical - moderate - high VTE Device Contraindication: Treatment Not Indicated VTE Drug Contraindication: N/A - Med Ordered
[2023-10-05] MEDS: Apixaban 5 MG TABLET PO (08:59)
[2023-10-05] MEDS: FLUoxetine HCl 20 MG CAPSULE 40 MG PO (08:59)
[2023-10-05] MEDS: Metoprolol Tartrate 12.5 MG HALFTAB PO (08:59)
[2023-10-05] MEDS: 0.9 % Sodium Chloride Flush 3 ML SYRINGE IVFLUSH (09:00)
[2023-10-05] MEDS: Atorvastatin Calcium 20 MG TABLET PO (09:00)
[2023-10-05] MEDS: Amoxicillin 500 MG CAPSULE PO (09:00)
--- NOTE | 2023-10-05 09:09 | P.DS_ITS ---
DS: Providers Provider Date of Service: 10/05/23 Date of admission: 10/02/23 17:41 Primary care physician: Unknown Physician Consults: 10/02/23 17:46 Consult to Infectious Diseases Routine Consulting Provider: [facility] Infectious Disease Reason for consultation: VRE uti 10/03/23 09:55 Consult to General Surgery Routine Consulting Provider: [facility] General Surgeons Reason for consultation: ?stoma blockage, very limited output x 3 days 10/03/23 10:59 Consult to Wound Care Routine Reason for consultation: ?healing pressure wound coccyx, two spots of tunneling DS: Diagnosis Discharge Diagnosis (1) Parastomal hernia: Status: Acute DS: Summary Hospital Course Hospital Course: admission hpi Chief Complaint: decreased ostomy output 68-year-old male with history of peripheral artery disease s/p LLE amputation, paroxysmal atrial fibrillation on Eliquis, history of diverticulitis s/p colostomy, neurogenic bladder with chronic Napier catheter presented to the ED earlier today via EMS due to diffuse abdominal pain ongoing for 2 weeks as well as decreased ostomy output ongoing for 3 days. He reports associated nausea but no vomiting. Reports he feels his intestines are clogged due to corn intake. States appearance of ostomy output has otherwise remain unchanged without any melena or hematochezia. He is currently being treated for VRE/Proteus UTI sensitive to Macrobid. Denies any fevers, chills, vomiting, melena, hematochezia, dysuria, hematuria, increased urinary frequency/urgency, shortness of breath, chest pain. On arrival, vital signs stable. There is no leukocytosis. Renal function baseline, electrolyte levels normal except mild hyponatremia of 134. Urinalysis significant for 3+ leukocytes, positive nitrites, 1+ blood, positive urinary sediment, 4+ bacteria. CT abdomen/pelvis negative for any acute intra-abdominal abnormality. No obstruction, stable, chronic appearing postoperative changes, otherwise unremarkable. In the ED, given PO amoxicillin, morphine, lorazepam. y hospital course: He presented with abdominal pain, and decreased ostomy output. CT showed no acute process, he was also found to UTI ( has history of VRE), culture wasnegative this. Abdominal pain was management coservatively with bowel regimen and diet been advanced slowly under the direction of surgery (Dr. Garcia), ostomy is now functioning properly and he is tolerating regular diet. UTI culture was negative but based on history of VRE and ID recommended amoxillin and will treated for 7 days total. He is being discharged to resume prior services and to follow up with DR. Thurston for catheter associated issues. Time Attestation Discharge coordination time: Greater than 30 minutes Quality: Safe Use of Opioids Does Pt have an Active Cancer Diagnosis on the Problem List?: No Quality: Stroke Does the patient have a stroke diagnosis?: No Physical Exam Vital Signs: Vital Signs: Last Vital Signs Temp 97.3 F 10/05/23 07:53 Pulse 88 10/05/23 07:53 Resp 18 10/05/23 07:53 BP 101/55 L 10/05/23 07:53 Pulse Ox 95 10/05/23 07:53 O2 Del Method Room Air 10/05/23 07:53 BMI result Body Mass Index 28.1 Const: Other: Constitutional - Awake and Alert, No apparent distress Cardiovascular - S1S2, RRR, No edema Respiratory - Normal lung expansion, Normal respiratory effort, No respiratory distress, CTA bilaterally Gastrointestinal - non distended, small brown liquidy stool in colostomy bag, bowel sounds audible, parastomal hernia, no guarding, no rigidity Extremities - no swelling Skin - Warm/Dry Neurological - Alert & oriented x3 Psychological - Appropriate affect DS: Data Data Completed and Pending Completed studies during hospitalization [Text1]: Procedures Change Drainage Device in Bladder, External Approach (04/07/21) Excision of Large Intestine, Via Natural or Artificial Opening Endoscopic, Diagnostic (07/24/23) Transfusion of Nonautologous Red Blood Cells into Peripheral Vein, Percutaneous Approach (04/07/21) Labs on day of discharge: Preliminary micro results at discharge 10/02/23 17:19 Blood Culture - Preliminary Blood - Venous No growth after 48 hours. 10/02/23 17:14 Blood Culture - Preliminary Blood - Venous No growth after 48 hours. Discharge Plan Discharge Anticipated Discharge Date/Time: 10/05/23 09:02 Patient Disposition: Home Health Service Discharge Diagnosis: Constipation, UTI, Decrease colostomy output, abdominal pain Referrals: Richa KIRBY [Outside] - 3-5 Days Physician,Unknown J [Primary Care Provider] - 1 Week Discharge Medications: New amoxicillin 500 mg Capsule 500 mg PO TID Qty: 15 0RF sennosides [Senna Lax] 8.6 mg Tablet 8.6 mg PO BEDTIME PRN (Reason: Constipation) Qty: 60 0RF polyethylene glycol 3350 17 gram Powder In Packet 17 g PO DAILY Qty: 30 0RF Continued atorvastatin 20 mg tablet 1 tab PO DAILY furosemide 20 mg tablet 1 tab PO BID Eliquis 5 mg tablet 1 tab PO BID metoprolol tartrate 25 mg tablet 0.5 tab PO BID fluoxetine 40 mg capsule 40 mg PO DAILY Discharge Orders: Discharge Order (Routine); Ordered 10/05/23 Ordered By: Amado Urena Diet: Advance to usual diet Activity on Discharge: As tolerated Stand Alone Forms: Patient Portal Discharge page Care Plan Goals: recovery from uti, constipation Health Concerns: uit constipation Plan of Treatment: uti--take amoxillin and follow up with your urologist Dr. Thurston, call for appointment constipatition--take bowel regimen as prescribed (miralax and Senna) Wound care order: Recommendations: 1. Turn and Reposition every 2 hours and as needed for patient comfort.? Use pillows or wedges to support off loading positions. 2. Off Load all bony prominences with use of pillows and heel boots if needed.? Apply Preventative foams where needed. ? 3. Monitor for incontinence and moisture control, use barrier creams when needed for prevention and treatment. 4. Provide adequate and supplemental nutrition. 5. Order or Continue low air loss mattress. 6. Bilateral Ischium - Off Load Pressure - Cleanse and irrigate with NS, Pat dry.? Apply barrier to periwound, lightly pack with Durafiber AG, be sure to leave a wick to easy removal.? Cover with dry gauze to fill space and Foam dressing.? Change Daily. 7. Buttocks and scrotum - Off Load Pressure - Cleanse with PH balance spray or wipes, pat dry. ?Apply thin layer of Triad to wound bed - only pat and dab no scrub and rub when soiling occurs. Reapply thin layer PRN after each episode of incontinence. Assessment: See above Discharge Date/Time: 10/05/23 14:23
--- NOTE | 2023-10-05 09:29 | P.F2F_ITS ---
Service Date Service Date: 10/05/23 Encounter Date of encounter: 10/05/23 Reasons for Services Signs and symptoms assessed: weakness Reason for residential: medication management and teach disease management Homebound: Leaving the home is medically contraindicated at this time without the asist of a device and/or another person due th the listed conditions above and below. Reason homebound: unsteady gait / fall risk, fall risk related to blood pressure changes and weakness related to hospital stay Homebound supporting statement: weakness realated to hospital stay, has amputation, doesn't drive and needs the assistance of another person Certification: Based on the above findings, I certify that this patient is confined to the home and needs intermittent residential care, physical therapy and/or speech therapy, or continues to need occupational therapy. The patient is under my care, and I have initiated the establishment of the plan of care. The patient will be followed by a physician who will periodically review the plan of care. Time Spent With Patient Time: Total time managing care of this patient today ____ minutes.
[2023-10-05] MEDS: Acetaminophen 325 MG TABLET 650 MG PO (12:02)
--- NOTE | 2023-10-05 13:39 | MHC.CM.PN ---
PT WILL DC HOME TODAY WITH RESUMPTION OF [facility] [facility] AND [facility] PT REPORTS BEING UNSURE IF HE WANTS [facility] BUT AGREES TO TRY IT AND KNOW HE CAN CANCEL AT ANY TIME BLS TRANSPORT ARRANGED [facility] FOR 1400 HOURS
== END 2023-10-05 14:23 | disposition home health service (06) | DRG 700 ==
LOC: HO.ED 15:52 → HO.EDOVER 20:58 → HO.S3 10-03 03:48
PROVIDERS: Physician Assistant; Admitting Provider Physician Assistant; Emergency Provider Emergency Medicine; Visit Provider Internal Medicine
DX: T83.511A Infection and inflammatory reaction due to indwelling urethral catheter, initial encounter (principal); I48.0 Paroxysmal atrial fibrillation; N31.9 Neuromuscular dysfunction of bladder, unspecified; Z89.512 Acquired absence of left leg below knee; K43.5 Parastomal hernia without obstruction or gangrene; F39 Unspecified mood [affective] disorder; Z99.3 Dependence on wheelchair; Z93.3 Colostomy status; K59.00 Constipation, unspecified; Z87.440 Personal history of urinary (tract) infections; Z87.891 Personal history of nicotine dependence; Z79.01 Long term (current) use of anticoagulants; Z79.899 Other long term (current) drug therapy
CPT/HCPCS: 36415; 74177; 80048; 80053; 81001; 83605; 83690; 83735; 85025; 85027; 87040; 87086; 99285; C1758; J0290; J2060; J2270; J2405; Q9967

== ENCOUNTER → 2023-10-02 11:23 | Outpatient (BNV) | payer MEDICARE, MEDICAID, SELFPAY | PROVIDERS: Emergency Provider Emergency Medicine; Visit Provider Physician Assistant | DX: K43.5 Parastomal hernia without obstruction or gangrene (principal) | CPT/HCPCS: 99223; 99232; 99233; 99239; G0180 ==

== ENCOUNTER → 2023-10-02 17:41 | Outpatient (BNV) | payer MEDICARE, MEDICAID, SELFPAY | PROVIDERS: Admitting Provider Physician Assistant; Emergency Provider Emergency Medicine; Visit Provider Internal Medicine | DX: K94.00 Colostomy complication, unspecified (principal); T83.511A Infection and inflammatory reaction due to indwelling urethral catheter, initial encounter; N39.0 Urinary tract infection, site not specified | CPT/HCPCS: 99222 ==

== ENCOUNTER → 2023-10-02 17:41 | Outpatient (BNV) | payer MEDICARE, MEDICAID, SELFPAY | PROVIDERS: Admitting Provider Physician Assistant; Emergency Provider Emergency Medicine; Visit Provider Surgery | DX: K43.5 Parastomal hernia without obstruction or gangrene (principal) | CPT/HCPCS: 99222; 99232 ==

== ENCOUNTER 2023-10-23 12:05 | Day surgery (SDC) | payer MEDICARE, MEDICAID, SELFPAY ==
--- NOTE | 2023-10-20 13:26 | P.CONAN_ITS ---
Documented by User: Janelle Greene NP 10/20/23 13:30 HPI - Anesthesia Eval Consult details Narrative: 68yo M for Insertion Suprapubic Tube C admit 10/02-10/05/23 for UTI Chronic barth (neurogentic bladder), ostomy (divertic) Eliquis for afib s/p colo 07/28/23 with TIVA PMFSH Active Problems Active Problems: All Active Problems (Updated 10/13/23 @ 00:02 by Eunice Glez) UTI (urinary tract infection) due to urinary indwelling Barth catheter (Acute) Diverticulosis (Acute) Acute GI bleeding (Acute) Screening PSA (prostate specific antigen) (Acute) Continuous urine leakage (Acute) Hypospadias (Acute) Neurogenic bladder (Acute) Cellulitis (Acute) Decubitus ulcer of sacral area (Acute) Acute urinary retention (Acute) Past Medical History Medical History Parastomal hernia Chronic indwelling Barth catheter Atrial fibrillation with slow ventricular response Left below-knee amputee Chronic indwelling Barth catheter Elevated cholesterol Muscle weakness Embolism Atrial fibrillation Essential hypertension Major depressive disorder COVID Family History Family history of problems with anesthesia: No Surgical History Surgical History S/P colostomy H/O colonoscopy Hx of cholecystectomy History of AAA (abdominal aortic aneurysm) repair History of Problems with Anesthesia: No Social History Social History Household Members: None 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 Housing: Apartment Are you a primary home care specialist to a significant other at home: No Do you presently have visiting nurse or other home services: Yes Alcohol intake: former Patient Tobacco Use Status: Former Tobacco user Quit Date: age 48's Tobacco use type: Cigarette Are you DNR?: Yes Advance Directives: No Advance Directives Information Provided: Yes Advance Directives Date on File: 04/08/21 service: No Current occupational status: disabled Meds Allergies Allergy/AdvReac Type Severity Reaction Status Date / Time No Known Allergies Allergy Verified 09/27/23 11:34 [No Known Allergies*] Home Medications Medication Instructions Recorded Confirmed Last Taken Type apixaban 5 mg tablet (Eliquis) 1 tab PO BID 04/07/21 10/23/23 10/16/23 History atorvastatin 20 mg tablet 1 tab PO DAILY 04/07/21 10/19/23 07/24/23 History furosemide 20 mg tablet 1 tab PO BID 04/07/21 10/23/23 10/21/23 History metoprolol tartrate 25 mg tablet 0.5 tab PO BID 07/02/21 10/23/23 10/23/23 History fluoxetine 40 mg capsule 40 mg PO DAILY 07/25/23 10/19/23 07/24/23 History vibegron 75 mg tablet (Gemtesa) 75 mg PO DAILY 10/19/23 10/19/23 Unknown History Exam Pertinent Lab Results Pertinent Lab Results: Laboratory Tests 10/03/23 09:41 WBC 5.8 Hgb 14.0 Hct 42.8 Plt Count 193 Sodium 138 Potassium 3.8 Chloride 107 Carbon Dioxide 24 BUN 18 H Creatinine 0.72 Narrative Narrative: EKG 07/2023 Vent. Rate : 065 BPM Atrial Rate : 000 BPM P-R Int : 000 ms QRS Dur : 110 ms QT Int : 434 ms P-R-T Axes : 000 -70 066 degrees QTc Int : 451 ms Atrial fibrillation Left anterior fascicular block Possible Anterolateral leads infarct Abnormal ECG When compared with ECG of 24-JUL-2023 22:09, No significant change was found Assessment and Plan Assessment Anesthesia Assessment: Chart Reviewed Final Anesthetic Review Family History of Problems with Anesthesia: No History of Problems with Anesthesia: No Documented by User: Asad Canseco MD 10/23/23 13:53 PMFSH Past Medical History Medical History Parastomal hernia Chronic indwelling Barth catheter Atrial fibrillation with slow ventricular response Left below-knee amputee Chronic indwelling Batrh catheter Elevated cholesterol Muscle weakness Embolism Atrial fibrillation Essential hypertension Major depressive disorder COVID Surgical History Surgical History S/P colostomy H/O colonoscopy Hx of cholecystectomy History of AAA (abdominal aortic aneurysm) repair Social History Social History Household Members: None 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 Housing: Apartment Are you a primary home care specialist to a significant other at home: No Do you presently have visiting nurse or other home services: Yes Alcohol intake: former Patient Tobacco Use Status: Former Tobacco user Quit Date: age 48's Tobacco use type: Cigarette Are you DNR?: Yes Advance Directives: No Advance Directives Information Provided: Yes Advance Directives Date on File: 04/08/21 service: No Current occupational status: disabled Meds Allergies Allergy/AdvReac Type Severity Reaction Status Date / Time No Known Allergies Allergy Verified 09/27/23 11:34 [No Known Allergies*] Home Medications Medication Instructions Recorded Confirmed Last Taken Type apixaban 5 mg tablet (Eliquis) 1 tab PO BID 04/07/21 10/23/23 10/16/23 History atorvastatin 20 mg tablet 1 tab PO DAILY 04/07/21 10/19/23 07/24/23 History furosemide 20 mg tablet 1 tab PO BID 04/07/21 10/23/23 10/21/23 History metoprolol tartrate 25 mg tablet 0.5 tab PO BID 07/02/21 10/23/23 10/23/23 History fluoxetine 40 mg capsule 40 mg PO DAILY 07/25/23 10/19/23 07/24/23 History vibegron 75 mg tablet (Gemtesa) 75 mg PO DAILY 10/19/23 10/19/23 Unknown History Exam Airway Mallampati Class: I TM Dist: >3cm Neck ROM: Full Loose/Missing/Broken Teeth: Yes, Upper and Lower Heart: ok. Afib Lungs: ok Assessment and Plan Final Anesthetic Review NPO: Yes ASA Class: IV Final Preanesthetic Review: No Changes in Pt Med Stat, Meds/Allgs Chart Reviewed, Consent Obtained/Reviewed and Anes Risks/Benef Reviewed Patient Risk: High Procedure Risk: Low Anesthetic Plan Anesthetic Plan: MAC: and Agree w/ Assess. and Plan Disposition: Standard PACU
[2023-10-23 12:27] VITALS: BP 93/41; PULSE 88; RESP 20; TEMP 36.7; O2SAT 98; BMI 25.8; BMI 27.4
[2023-10-23] MEDS: Lactated Ringers 1,000 ML 100 ML IVCONT (13:03)
--- NOTE | 2023-10-23 13:29 | MHC.SHP ---
Pre-Procedural Eval Section A - 24 Hr Update-Section A only Date of Service: 10/23/23 The patient is an INPATIENT: No Changes since office visit: No Cold of Flu in the past 2 weeks, No New Medical Problems, No Changes in Medication and No Patient answered all questions The patient has been examined within 24 hours of the surgical procedure. The History & Physical has been completed within 30 days and I have reviewed it.: Yes Section B - Complete if H&P > 30 days Chief Complaint: neuropathic bladder, SUPRA PUBIC CATH IN OR Allergies: Allergies Allergy/AdvReac Type Severity Reaction Status Date / Time No Known Allergies Allergy Verified 09/27/23 11:34 [No Known Allergies*] Plan I have reviewed the history and physical and performed a pertinent physical examination on my patient. No changes have occurred unless specified. Time Spent With Patient Time: Total time managing care of this patient today ____ minutes.
[2023-10-23 14:23] VITALS: BP 91/51; PULSE 76; RESP 16; TEMP 36.3; O2SAT 99
--- NOTE | 2023-10-23 14:28 | W.PM.OPN ---
Operative Note Operative Note Date of Service: 10/23/23 Narrative: PreOperative Diagnosis:?neurogenic bladder Post Operative Diagnosis:?neurogenic bladder Procedure:? 1. Cystoscopy 2. Suprapubic tube placement Surgeon: Dr Dhruv Thurston Anesthesia:?Sedation plus local Indications for procedure: Long-term indwelling Barth catheter with iatrogenic hypospadias Procedure: After informed consent was verified the patient was brought to the operating room and placed in a supine position.? Anesthesia was administered per protocol. The patient was placed in a modified dorsal lithotomy position and prepped and draped in a sterile fashion. A safety pause was performed confirming patient identity, procedure and antibiotics. A 22 Cypriot cystoscope was inserted per urethra. Bladder was examined in its entirety. No abnormalities seen. Air bubble was located at the dome of the bladder. Using ultrasound the pathway to the bladder from the skin was confirmed to have no overlying bowel. His stoma was off to the left side. Local anesthetic was infiltrated subcutaneously. A finder needle was inserted 2 fingerbreaths above the symphysis pubis on the abdomen into the bladder.? The needle was visualized in the bladder via cystoscopy. A small, 1cm vertical incision was made.? A trocar introducer was advanced through the abdominal wall into the bladder under visualization. The obturator was removed and a 16 Fr barth catheter placed. 7cc was used to inflate the balloon. The external portion of the trocar was removed. Catheter was secured with 2-0 nylon. Dressing was placed, the bladder was emptied, and a drainage bag was attached. The patient tolerated the procedure and was transferred in stable condition to the recovery area. Suprapubic tube will be changed in 1 month with a follow-up office visit.
[2023-10-23 14:38] VITALS: BP 108/81; PULSE 78; RESP 16; TEMP 36.4; O2SAT 98
== END 2023-10-23 16:26 | disposition home or self-care (01) ==
PROVIDERS: Visit Provider Urology
PROC: (CPT 51102; principal; 2023-10-23 13:10)
DX: N31.9 Neuromuscular dysfunction of bladder, unspecified (principal); I10 Essential (primary) hypertension; E78.5 Hyperlipidemia, unspecified; I48.20 Chronic atrial fibrillation, unspecified; Z79.02 Long term (current) use of antithrombotics/antiplatelets; Z79.01 Long term (current) use of anticoagulants; Z79.899 Other long term (current) drug therapy
CPT/HCPCS: 51102; 76857; 76998; J1956; J2704; J2795

== ENCOUNTER → 2023-10-23 12:05 | Outpatient (BNV) | payer MEDICARE, MEDICAID, SELFPAY | PROVIDERS: Visit Provider Urology | DX: N31.2 Flaccid neuropathic bladder, not elsewhere classified (principal) | CPT/HCPCS: 51102; 76942 ==

== ENCOUNTER 2023-10-24 14:07 | Inpatient (IN) | payer MEDICARE, MEDICAID, SELFPAY ==
--- NOTE | ~2023-10-24 | XR_ITS ---
EXAMINATION: XR ABDOMEN KUB CLINICAL INDICATION: Abdominal pain and distention COMPARISON: 01/29/2019 TECHNIQUE: AP view of the abdomen. FINDINGS: Stool and air seen throughout colon to the rectum. I do not appreciate any evidence for obstruction. There are scattered air-filled loops of small bowel seen as well. Bladder catheter noted. Extensive vascular calcification. Degenerative changes in the spine and hips. Surgical clips overlying the midline. XR/XR KUB IMPRESSION: Stool and air seen throughout colon to the rectum. I do not appreciate any evidence for obstruction.
[2023-10-24 14:13] VITALS: BP 124/57; BP 130/81; PULSE 102; PULSE 81; RESP 18; TEMP 36.6; O2SAT 100; O2SAT 96; BMI 27.4
[2023-10-24 15:25] LABS: MANUAL DIFF FLAG NO
[2023-10-24 15:26] LABS: Basophils Percent Auto 0.6 % (0-2); Eosinophils Absolute Auto 0.2 X10*3/uL (0.0-0.4); Eosinophils Percent Auto 2.5 % (0-4); Hematocrit 36.8 % (42.0-52.0); Hemoglobin 12.1 g/dl (14.0-18.0); Imm Gran Abs Auto 0.02 X10*3/uL (0.00-0.03); Imm Gran Pct Auto 0.3 % (0.0-0.4); Lymphocytes Absolute Auto 1.6 X10*3/uL (1.2-4.9); Lymphocytes Percent Auto 24.9 % (20-40); Mean Corpuscular HGB Conc 32.9 g/dl (31.0-36.0); Mean Corpuscular Volume 91.3 fL (80.0-98.0); Mean Platelet Volume 9.8 fL (9.4-12.4); Monocytes Absolute Auto 0.5 X10*3/uL (0.1-1.2); Monocytes Percent Auto 7.7 % (2-11); Neutrophils Absolute Auto 4.1 x10*3/uL (2.0-8.3); Platelet Count 180 X10*3/uL (160-400); Red Blood Count 4.03 X10*6/uL (4.60-5.80); Red Cell Distribution Width 13.5 % (11.0-16.0); White Blood Count 6.5 X10*3/uL (4.8-10.8)
[2023-10-24 15:40] LABS: Alanine Aminotransferase 8 U/L (0-40); Albumin Level 3.3 g/dL (3.5-5.0); Alkaline Phosphatase 77 U/L (39-117); Anion Gap 11 (12-20); Aspartate Amino Transferase 10 U/L (5-37); Bilirubin Total 0.7 mg/dL (0.0-1.0); Blood Urea Nitrogen 17 mg/dL (9-16); Calcium 8.5 mg/dL (8.4-10.2); Carbon Dioxide 22 mmol/L (22-29); Chloride 107 mmol/L (96-108); Estimated Glomerular Filt Rate > 60; Glucose Random 85 mg/dL (60-115); Potassium 4.2 mmol/L (3.3-5.1); Sodium 136 mmol/L (135-145); Total Protein 6.4 g/dL (6.5-8.0)
--- NOTE | 2023-10-24 16:15 | ED_ITS ---
HPI - Male Genitourinary General Chief complaint: Urogenital-Male Stated complaint: BLOOD CLOTS IN URINE PER EMS Time Seen by Provider: 10/24/23 16:14 Source: patient Mode of arrival: EMS Limitations: no limitations History of Present Illness HPI Narrative: Patient with history of peripheral artery disease left BKA AFib on Eliquis neurogenic bladder with chronic Napier catheter had a suprapubic catheter placed yesterday in afternoon patient stopped taking Eliquis for a week and did not take the Eliquis after surgery comes in just prior to arrival patient noticed gross hematuria bleeding from the suprapubic area also along with from penis. Related Data Home Medications Medication Instructions Recorded Confirmed apixaban 5 mg tablet (Eliquis) 1 tab PO BID 04/07/21 10/23/23 atorvastatin 20 mg tablet 1 tab PO DAILY 04/07/21 10/19/23 furosemide 20 mg tablet 1 tab PO BID 04/07/21 10/23/23 metoprolol tartrate 25 mg tablet 0.5 tab PO BID 07/02/21 10/23/23 fluoxetine 40 mg capsule 40 mg PO DAILY 07/25/23 10/19/23 vibegron 75 mg tablet (Gemtesa) 75 mg PO DAILY 10/19/23 10/19/23 Previous Rx's Medication Instructions Recorded amoxicillin 500 mg capsule 500 mg PO TID #15 caps 10/05/23 polyethylene glycol 3350 17 gram 17 g PO DAILY #30 ea 10/05/23 oral powder packet sennosides 8.6 mg tablet (Senna 8.6 mg PO BEDTIME PRN Constipation 10/05/23 Lax) #60 tabs Allergies Allergy/AdvReac Type Severity Reaction Status Date / Time No Known Allergies Allergy Verified 09/27/23 11:34 [No Known Allergies*] Review of Systems 2 Review of Systems: Yes all other systems are reviewed and are negative PMFSH Past Medical History Medical History Parastomal hernia Chronic indwelling Napier catheter Atrial fibrillation with slow ventricular response Left below-knee amputee Chronic indwelling Napier catheter Elevated cholesterol Muscle weakness Embolism Atrial fibrillation Essential hypertension Major depressive disorder COVID Surgical History S/P colostomy H/O colonoscopy Hx of cholecystectomy History of AAA (abdominal aortic aneurysm) repair Social History Social History Household Members: None 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 Housing: Apartment Are you a primary career services representative to a significant other at home: No Do you presently have visiting nurse or other home services: Yes Alcohol intake: former Patient Tobacco Use Status: Former Tobacco user Quit Date: age 48's Tobacco use type: Cigarette Advance Directives: Yes Advance Directives on File: Yes Advance Directives Date on File: 04/08/21 service: No Current occupational status: disabled Physical Exam 2 Vital Signs: Vital Signs: Last Vital Signs Temp 97.9 F 10/24/23 14:13 Pulse 102 H 10/24/23 14:13 Resp 18 10/24/23 14:13 BP 130/81 10/24/23 14:13 Pulse Ox 96 10/24/23 14:13 O2 Del Method Room Air 10/24/23 14:13 BMI result Body Mass Index 27.4 Appearance: Alert. Oriented X3. No acute distress. Eyes: No pallor or icterus ENT: Pharynx normal. Oral Mucosa moist Neck: Normal inspection. Neck supple. CVS: Normal heart rate and rhythm. Pulses normal. Respiratory: No respiratory distress. Equal air entry bilateral, no wheezing/rales/rhonchi Abdomen: Soft and nontender. Bowel sounds are present, no mass palpable, no CVA tenderness : Gross hematuria bright red from suprapubic catheter and also from the penis hypospadias++ Skin: Skin warm and dry. Normal skin color. Normal skin turgor. Extremities: No lower extremity edema. No calf tenderness left BKA Neuro: Oriented X 3. No motor deficit. No sensory deficit.No cerebellar signs , cranial nerves II-XII intact Medications Administered Discontinued Medications Generic Name Dose Route Start Last Admin Trade Name Freq PRN Reason Stop Dose Admin Lidocaine HCl 10 ml 10/24/23 16:53 10/24/23 17:04 Lidocaine Hcl 2 % Urojet 10 Ml Jel.Pf.Windy TOPICAL 10/24/23 16:54 10 ml ONCE ONE Administration Morphine Sulfate 4 mg 10/24/23 16:53 10/24/23 17:04 Morphine Sulfate 4 Mg/Ml Cartridge IVPUSH 10/24/23 16:54 4 mg ONCE ONE Administration Protocol Ondansetron HCl 4 mg 10/24/23 16:53 10/24/23 17:04 Ondansetron Hcl 4 Mg/2 Ml Vial IVPUSH 10/24/23 16:54 4 mg ONCE ONE Administration Medical Decision Making Medical Decision Making [facility] Narrative: Patient is status post suprapubic catheter placement yesterday was on Eliquis he has not taken for last 7 days comes in for gross hematuria etiology not very clear as patient has been off Eliquis case discussed Dr. Thurston who is urologist advised to put a Napier catheter and do the bladder irrigation. Patient started on CBI still having gross hematuria few clots came will admit patient Differential Diagnosis Differential Diagnoses: The differential diagnosis associated with the presentation includes Hematuria/bladder lesion Admission/Observation Consideration of admission/observation: Escalation of care including admission/observation considered Lab Data [facility] Lab Attestation statement: I reviewed the patient's lab results. 10/24/23 15:20 10/24/23 15:20 Labs: Lab Results 10/24/23 10/24/23 Range/Units 15:20 15:55 WBC 6.5 (4.8-10.8) X10*3/uL RBC 4.03 L (4.60-5.80) X10*6/uL Hgb 12.1 L (14.0-18.0) g/dl Hct 36.8 L (42.0-52.0) % MCV 91.3 (80.0-98.0) fL MCH 30.0 (27.0-33.0) pg MCHC 32.9 (31.0-36.0) g/dl RDW 13.5 (11.0-16.0) % Plt Count 180 (160-400) X10*3/uL MPV 9.8 (9.4-12.4) fL Immature Gran % (Auto) 0.3 (0.0-0.4) % Neut % (Auto) 64.0 (45-73) % Lymph % (Auto) 24.9 (20-40) % Rolette % (Auto) 7.7 (2-11) % Eos % (Auto) 2.5 (0-4) % Baso % (Auto) 0.6 (0-2) % Lymph # (Auto) 1.6 (1.2-4.9) X10*3/uL Rolette # (Auto) 0.5 (0.1-1.2) X10*3/uL Eos # (Auto) 0.2 (0.0-0.4) X10*3/uL Baso # (Auto) 0.0 (0.0-0.2) X10*3/uL Abs Immat Gran (auto) 0.02 (0.00-0.03) X10*3/uL Absolute Neuts (auto) 4.1 (2.0-8.3) x10*3/uL Absolute Nucleated RBC 0.000 (0.0-0.012) X10*3/uL Nucleated RBC % (auto) 0.0 (0.0-0.2) /100WBC PT 14.4 H (11.1-13.3) SEC INR 1.2 H (0.9-1.1) Sodium 136 (135-145) mmol/L Potassium 4.2 (3.3-5.1) mmol/L Chloride 107 (96-108) mmol/L Carbon Dioxide 22 (22-29) mmol/L Anion Gap 11 L (12-20) BUN 17 H (9-16) mg/dL Creatinine 0.56 (0.5-1.4) mg/dL Estim Creat Clear Calc 120.0 Estimated GFR > 60 Random Glucose 85 (60-115) mg/dL Calcium 8.5 (8.4-10.2) mg/dL Total Bilirubin 0.7 (0.0-1.0) mg/dL AST 10 (5-37) U/L ALT 8 (0-40) U/L Alkaline Phosphatase 77 (39-117) U/L Total Protein 6.4 L (6.5-8.0) g/dL Albumin 3.3 L (3.5-5.0) g/dL Discharge Plan Discharge Clinical Impression: Gross hematuria Patient Disposition: Admitted As Inpatient
[2023-10-24 16:24] LABS: INTERNATIONAL NORM RATIO 1.2 (0.9-1.1); Prothrombin Time 14.4 SEC (11.1-13.3)
[2023-10-24] MEDS: Lidocaine HCl 2 % Urojet 10 ML JEL.PF.APP TOPICAL (17:04)
[2023-10-24] MEDS: ondansetron HCL 4 MG/2 ML VIAL IVPUSH (17:04)
[2023-10-24] MEDS: Morphine Sulfate 4 MG/ML CARTRIDGE IVPUSH (17:04)
--- NOTE | 2023-10-24 19:26 | PM.IMHP ---
History of Present Illness Date of Service: 10/24/23 Chief Complaint: Hematuria This is a 68-year-old male with pertinent history of paroxysmal atrial fibrillation on Eliquis, mood disorder, essential hypertension, neurogenic bladder on chronic Napier, peripheral vascular disease status post left BKA, history of diverticulitis status post colostomy who presents to the emergency department for evaluation of blood in urine. Patient states he has not taken his Eliquis for a week. Patient underwent cystoscopy and suprapubic catheter placement by Urology yesterday. He states that after the procedure he noticed blood in his urine. It continued overnight which prompted visit. No fever, chills, abdominal discomfort. Patient denies being on antiplatelet agent. No chest discomfort, palpitations, shortness of breath, changes in bowel habits. In the emergency department, patient was initiated on continuous bladder irrigation. Review of Systems Constitutional: Constitutional: Reports no additional constitutional complaints Cardiovascular: Cardiovascular: Reports no additional cardiovascular complaints Respiratory: Respiratory: Reports no additional respiratory complaints Gastrointestinal: Gastrointestinal: Reports no additional gastrointestinal complaints Genitourinary: Genitourinary: Reports hematuria [facility] Medical History Parastomal hernia Chronic indwelling Napier catheter Atrial fibrillation with slow ventricular response Left below-knee amputee Chronic indwelling Napier catheter Elevated cholesterol Muscle weakness Embolism Atrial fibrillation Essential hypertension Major depressive disorder COVID Surgical History S/P colostomy H/O colonoscopy Hx of cholecystectomy History of AAA (abdominal aortic aneurysm) repair Social History Household Members: None 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 Housing: Apartment Are you a primary neonatal intensive care nurse to a significant other at home: No Do you presently have visiting nurse or other home services: Yes Alcohol intake: former Patient Tobacco Use Status: Former Tobacco user Quit Date: age 48's Tobacco use type: Cigarette Advance Directives: Yes Advance Directives on File: Yes Advance Directives Date on File: 04/08/21 service: No Current occupational status: disabled Meds Allergies Allergy/AdvReac Type Severity Reaction Status Date / Time No Known Allergies Allergy Verified 09/27/23 11:34 [No Known Allergies*] Home Medications Medication Instructions Recorded Confirmed Last Taken Type apixaban 5 mg tablet (Eliquis) 1 tab PO BID 04/07/21 10/24/23 2 Days Ago History ~10/22/23 atorvastatin 20 mg tablet 1 tab PO DAILY 04/07/21 10/24/23 2 Days Ago History ~10/22/23 furosemide 20 mg tablet 1 tab PO BID 04/07/21 10/24/23 2 Days Ago History ~10/22/23 metoprolol tartrate 25 mg tablet 0.5 tab PO BID 07/02/21 10/24/23 10/23/23 History fluoxetine 40 mg capsule 40 mg PO DAILY 07/25/23 10/24/23 2 Days Ago History ~10/22/23 vibegron 75 mg tablet (Gemtesa) 75 mg PO DAILY 10/19/23 10/24/23 2 Days Ago History ~10/22/23 Physical Exam Vital Signs and Narrative: Vital Signs: Last Vital Signs Temp 97.9 F 10/24/23 14:13 Pulse 102 H 10/24/23 14:13 Resp 18 10/24/23 14:13 BP 130/81 10/24/23 14:13 Pulse Ox 96 10/24/23 14:13 O2 Del Method Room Air 10/24/23 14:13 BMI result Body Mass Index 27.4 Elderly male lying in bed in no distress Neck supple, no JVD Regular rate and rhythm, S1-S2 heard Regular breath sounds bilaterally, no wheezing or crackles appreciated Abdomen soft nontender, no guarding, no rigidity, colostomy in place Patient is awake, alert and oriented to self, place, time and person ; no focal motor deficit Extremity: Left BKA Psych: Normal mood No pedal edema Results Labs 10/24/23 15:20 10/24/23 15:20 Labs: Laboratory Results - last 24 hr 10/24/23 10/24/23 15:20 15:55 MCV 91.3 MCH 30.0 MCHC 32.9 RDW 13.5 Plt Count 180 MPV 9.8 Immature Gran % (Auto) 0.3 Neut % (Auto) 64.0 Lymph % (Auto) 24.9 [place] % (Auto) 7.7 Eos % (Auto) 2.5 Baso % (Auto) 0.6 Lymph # (Auto) 1.6 [place] # (Auto) 0.5 Eos # (Auto) 0.2 Baso # (Auto) 0.0 Abs Immat Gran (auto) 0.02 Absolute Neuts (auto) 4.1 Absolute Nucleated RBC 0.000 Nucleated RBC % (auto) 0.0 PT 14.4 H INR 1.2 H Anion Gap 11 L Estim Creat Clear Calc 120.0 Estimated GFR > 60 Random Glucose 85 Calcium 8.5 Total Bilirubin 0.7 AST 10 ALT 8 Alkaline Phosphatase 77 Total Protein 6.4 L Albumin 3.3 L Assessment and Plan (1) Gross hematuria: Status: Acute Plan This is a 68-year-old male with pertinent history of paroxysmal atrial fibrillation on Eliquis, mood disorder, essential hypertension, neurogenic bladder on chronic Napier, peripheral vascular disease status post left BKA, history of diverticulitis status post colostomy who presents to the emergency department for evaluation of blood in urine. #. Gross hematuria: Initiated on continuous bladder irrigation. Consulting Urology, appreciate assistance. Closely monitor H&H. UA pending #. Paroxysmal atrial fibrillation: Hold Eliquis in the setting of above. Continue metoprolol #. Mood disorder: Continue home mood stabilizers #. Neurogenic bladder: On chronic Napier and vibegron #. Peripheral vascular disease: Not on antiplatelet agent. On statin #. Essential hypertension: Hold home antihypertensives in the setting of gross hematuria DVT prophylaxis: Mechanical DNR/DNI. Discussed code status with patient at bedside Admit as inpatient and will require two night minimum hospital stay for evaluation of gross hematuria, closely monitor hemodynamics and H&H (as above), which is not possible in a lesser acute setting. Specialist consult pending Quality Stroke Does the patient have a stroke diagnosis?: No VTE Prior VTE?: No VTE Risk Level:: Medical - moderate - high VTE Device Contraindication: N/A - Device Ordered VTE Drug Contraindication: Treatment Not Indicated
[2023-10-24] MEDS: oxyCODONE HCl Immed Release 5 MG TABLET 10 MG PO (19:27)
[2023-10-24 19:28] VITALS: BP 105/64; PULSE 83; RESP 16; TEMP 36.4; O2SAT 98
--- NOTE | 2023-10-24 19:42 | PHA.MEDREC ---
Pharmacy Consult ? Medication Reconciliation Pharmacy has completed the medication reconciliation. Patient recently discharge 10/05/23. Patient has no recently fill history. Patient confirmed all medications. Stated he does not want any of his home medications because he thinks it will make him bleed. Let patient know that besides the Eliquis, the rest of his medications will not cause bleeding and the provider will only continue the necessary medications. maria isabel Dixon, PharmD
[2023-10-24 21:40] VITALS: BP 95/57; PULSE 79; RESP 18; TEMP 36.5; O2SAT 98
[2023-10-24] MEDS: Morphine Sulfate Immed Release 15 MG TABLET PO (23:55)
--- NOTE | 2023-10-25 00:24 | PC.NURSE ---
Patient changed cleaned and applied barrier cream to buttock and legs. Bed was soaked from the irrigation fluid, urine, and blood. Patient refused any more irrigation for tonight Dr. Ceron aware as he was in the room. changed dressing around suprapubic catheter. removed irrigation set up and applied urinary bag to suprapubic catheter. Coude was left in penis per MD and urinary bag still connected. Patient medicated for pain.
[2023-10-25 05:34] LABS: MANUAL DIFF FLAG NO
[2023-10-25 05:36] LABS: Basophils Percent Auto 0.5 % (0-2); Eosinophils Absolute Auto 0.2 X10*3/uL (0.0-0.4); Eosinophils Percent Auto 2.4 % (0-4); Hematocrit 34.5 % (42.0-52.0); Hemoglobin 11.1 g/dl (14.0-18.0); Imm Gran Abs Auto 0.01 X10*3/uL (0.00-0.03); Imm Gran Pct Auto 0.2 % (0.0-0.4); Lymphocytes Absolute Auto 1.2 X10*3/uL (1.2-4.9); Lymphocytes Percent Auto 19.6 % (20-40); Mean Corpuscular HGB Conc 32.2 g/dl (31.0-36.0); Mean Corpuscular Hemoglobin 30.2 pg (27.0-33.0); Mean Platelet Volume 9.8 fL (9.4-12.4); Monocytes Absolute Auto 0.5 X10*3/uL (0.1-1.2); Neutrophils Absolute Auto 4.3 x10*3/uL (2.0-8.3); Neutrophils Percent Auto 69.3 % (45-73); Platelet Count 161 X10*3/uL (160-400); Red Blood Count 3.67 X10*6/uL (4.60-5.80); Red Cell Distribution Width 13.4 % (11.0-16.0); White Blood Count 6.2 X10*3/uL (4.8-10.8)
[2023-10-25 05:37] VITALS: BP 120/73; PULSE 65; RESP 17; TEMP 36.6; O2SAT 98
[2023-10-25 05:47] VITALS: BP 121/64; PULSE 73; TEMP 36.3; O2SAT 100
[2023-10-25 05:51] LABS: Anion Gap 10 (12-20); Blood Urea Nitrogen 20 mg/dL (9-16); Calcium 8.1 mg/dL (8.4-10.2); Carbon Dioxide 25 mmol/L (22-29); Chloride 105 mmol/L (96-108); Creatinine Clr Calc Pharmacy 100.3; Estimated Glomerular Filt Rate > 60; Glucose Random 103 mg/dL (60-115); Potassium 4.5 mmol/L (3.3-5.1); Sodium 135 mmol/L (135-145)
--- NOTE | 2023-10-25 06:14 | PC.NURSE ---
Addendum entered by Sunshine Prater RN 10/25/23 06:21: Dr Ceron aware of Hematuria draining around barth, plan for Urology to see patient first thing this morning. Original Note: Patient with hematuria noted in barth and suprapubic catheters as well as on incontinence pads under patient. Sydney care provided for patient which he tolerated well. Hematuria noted to still be draining around barth catheter.
[2023-10-25 07:07] VITALS: BP 103/67; PULSE 76; RESP 18; TEMP 36.6; O2SAT 96
[2023-10-25] MEDS: Metoprolol Tartrate 12.5 MG HALFTAB PO ×2 (08:17→20:58)
[2023-10-25] MEDS: FLUoxetine HCl 20 MG CAPSULE 40 MG PO (08:18)
[2023-10-25] MEDS: 0.9 % Sodium Chloride Flush 3 ML SYRINGE IVFLUSH ×3 (08:18→23:46)
[2023-10-25] MEDS: Atorvastatin Calcium 20 MG TABLET PO (08:18)
--- NOTE | 2023-10-25 09:14 | MHC.CM.PN ---
CM met with Patient in the ED, at bedside and addressed IMM with him (original was given to Patient and a copy has been placed on the chart). 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 Patient uses a w/c at baseline for mobility. Home/resume said services is the goal and CM has initiated and will follow for dc planning. Patient's Friend/Nubia is the HCP and the PCP is Dr. Bolivar Johnson.
--- NOTE | 2023-10-25 09:48 | HO.PM.IMPN ---
Subjective Subjective Date of Service: 10/25/23 Interval History: blood in uretheral catheter, none in suprapubic Physical Exam Vital Signs: Vital Signs: Last Vital Signs Temp 97.9 F 10/25/23 07:07 Pulse 76 10/25/23 07:07 Resp 18 10/25/23 07:07 BP 103/67 10/25/23 07:07 Pulse Ox 96 10/25/23 07:07 O2 Del Method Room Air 10/25/23 07:07 BMI result Body Mass Index 27.4 bloo din uretheral catheter General: AO X 3, no acute distress Resp: CTA bilateral, no accessory muscles used CVS: S1,S2,RRR GI: soft, non tender, non distended Neuro: motor grossly intact, alert Psych: appropriate affect, appropriate insight Objective Data Active Medications Acetaminophen (Acetaminophen 325 Mg Tablet) 650 mg PO Q6H PRN PRN Reason: Pain, Mild (Pain Scale 1-3) Atorvastatin Calcium (Atorvastatin Calcium 20 Mg Tablet) 20 mg PO DAILY [facility] Last Admin: 10/25/23 08:18 Dose: 20 mg Documented By: CHRISTINE Fluoxetine HCl (Fluoxetine Hcl 20 Mg Capsule) 40 mg PO DAILY [facility] Last Admin: 10/25/23 08:18 Dose: 40 mg Documented By: CHRISTINE Melatonin (Melatonin 3 Mg Tablet) 6 mg PO BEDTIME PRN PRN Reason: Insomnia Metoprolol Tartrate (Metoprolol Tartrate 12.5 Mg Halftab) 12.5 mg PO BID [facility]; Protocol Last Admin: 10/25/23 08:17 Dose: 12.5 mg Documented By: CHRISTINE Morphine Sulfate (Morphine Sulfate Immed Release 15 Mg Tablet) 15 mg PO Q4H PRN PRN Reason: Pain, Severe (Pain Scale 7-10) Last Admin: 10/24/23 23:55 Dose: 15 mg Documented By: LUIS Non-Formulary Medication (Vibegron [Gemtesa]) 75 mg PO DAILY [facility] Ondansetron HCl (Ondansetron Hcl 4 Mg/2 Ml Vial) 4 mg IVPUSH Q8H PRN PRN Reason: Nausea and Vomiting Sodium Chloride (0.9 % Sodium Chloride Flush 3 Ml Syringe) 3 ml IVFLUSH QSHIFT [facility] Last Admin: 10/25/23 08:18 Dose: 3 ml Documented By: CHRISTINE Labs 10/25/23 05:25 10/25/23 05:25 Labs: Laboratory Results - last 24 hr 10/24/23 10/24/23 10/25/23 15:20 15:55 05:25 MCV 91.3 94.0 MCH 30.0 30.2 MCHC 32.9 32.2 RDW 13.5 13.4 Plt Count 180 161 MPV 9.8 9.8 Immature Gran % (Auto) 0.3 0.2 Neut % (Auto) 64.0 69.3 Lymph % (Auto) 24.9 19.6 L [place] % (Auto) 7.7 8.0 Eos % (Auto) 2.5 2.4 Baso % (Auto) 0.6 0.5 Lymph # (Auto) 1.6 1.2 [place] # (Auto) 0.5 0.5 Eos # (Auto) 0.2 0.2 Baso # (Auto) 0.0 0.0 Abs Immat Gran (auto) 0.02 0.01 Absolute Neuts (auto) 4.1 4.3 Absolute Nucleated RBC 0.000 0.000 Nucleated RBC % (auto) 0.0 0.0 PT 14.4 H INR 1.2 H Anion Gap 11 L 10 L Estim Creat Clear Calc 120.0 100.3 Estimated GFR > 60 > 60 Random Glucose 85 103 Calcium 8.5 8.1 L Total Bilirubin 0.7 AST 10 ALT 8 Alkaline Phosphatase 77 Total Protein 6.4 L Albumin 3.3 L Assessment and Plan (1) Gross hematuria: Status: Acute Plan 68M PMH paroxysmal atrial fibrillation on Eliquis, mood disorder, essential hypertension, neurogenic bladder with suprapubic placed 10/23/23, peripheral vascular disease status post left BKA, history of diverticulitis status post colostomy who presented to the emergency department for evaluation of blood in urine. acute blood loss anemia due to Gross hematuria monitor h and h, arvind bowling, holding eliquis Paroxysmal atrial fibrillation hodling Eliquis. Continue metoprolol Mood disorder fluoextine Peripheral vascular disease statin hypertension metoprolol DVT prophylaxis: Mechanical due to hematuria DNR/DNI reason for continued hospitalization:ongoing hematuria Quality Stroke Does the patient have a stroke diagnosis?: No VTE Prior VTE?: No VTE Risk Level:: Medical - moderate - high VTE Device Contraindication: N/A - Device Ordered VTE Drug Contraindication: Treatment Not Indicated
[2023-10-25 10:34] VITALS: BP 112/60; PULSE 65; RESP 18; TEMP 36.1; O2SAT 100
[2023-10-25 13:44] VITALS: BMI 27.1
[2023-10-25 14:58] VITALS: BP 126/62; PULSE 68; RESP 18; TEMP 37.2; O2SAT 98
[2023-10-25] MEDS: Morphine Sulfate Immed Release 15 MG TABLET PO ×2 (16:49→21:18)
--- NOTE | 2023-10-25 19:13 | PC.NURSE ---
Pt. Suprapubic and indwelling catheters with hematuria. CBI discontinued in ED due to leakage around it. Leakage around Indwelling catheter continues. Dr. Thurston notified and aware. Ordered to keep holding the Eliquis.
[2023-10-25 20:00] VITALS: BP 122/56; PULSE 66; RESP 18; TEMP 36.4; O2SAT 96
--- NOTE | 2023-10-26 05:29 | PC.NURSE ---
Addendum entered by Ally Snowden RN 10/26/23 05:47: Urine sample collected by WELL[employer], sample sent to lab for UA and culture. Original Note: Both Napier cath and suprapubic cath flushed on the ports, no resistance, still draining dark red urine.
[2023-10-26 06:25] LABS: Hematocrit 34.6 % (42.0-52.0); Hemoglobin 11.1 g/dl (14.0-18.0); Mean Corpuscular HGB Conc 32.1 g/dl (31.0-36.0); Mean Corpuscular Hemoglobin 30.2 pg (27.0-33.0); Mean Platelet Volume 10.2 fL (9.4-12.4); Platelet Count 174 X10*3/uL (160-400); Red Blood Count 3.68 X10*6/uL (4.60-5.80); Red Cell Distribution Width 13.4 % (11.0-16.0); White Blood Count 6.3 X10*3/uL (4.8-10.8)
[2023-10-26 06:26] LABS: Appearance Urine Hazy; Glucose Urine UA Negative (Negative); Leukocyte Esterase Urine Large (3+) (Negative); PH 6.5 (5.0-9.0); Specific Gravity - Urine <= 1.005 (1.005-1.025); UMIC TRIGGER UACC YES; Urine Blood Large (3+) (Negative); Urine Ketones Negative (Negative); Urine Protein 300 (3+) mg/dL (Neg-Trace)
[2023-10-26 06:28] LABS: Anion Gap 9 (12-20); Blood Urea Nitrogen 27 mg/dL (9-16); Calcium 8.1 mg/dL (8.4-10.2); Carbon Dioxide 27 mmol/L (22-29); Chloride 102 mmol/L (96-108); Creatinine Clr Calc Pharmacy 80.5; Estimated Glomerular Filt Rate > 60; Glucose Fasting 87 mg/dL (60-99); Potassium 4.3 mmol/L (3.3-5.1); Sodium 134 mmol/L (135-145)
[2023-10-26 06:39] LABS: Color Urine Red
[2023-10-26 06:40] LABS: Bacteria Urine 1+ (None Seen); RBC Urine >20 /HPF (0-2); Squamous Epithelial Cell Urine 0-2 /HPF (0-2); UACC Culture Trigger YES; WBC Urine >50 /HPF (0-5)
[2023-10-26 07:30] VITALS: BP 108/55; PULSE 65; RESP 16; TEMP 35.9; O2SAT 98
--- NOTE | 2023-10-26 08:45 | P.PNIM_ITS ---
Subjective Subjective Date of Service: 10/26/23 Interval History: blood in both catheters, suprapubic pain Physical Exam 2 Vital Signs: Vital Signs: Last Vital Signs Temp 96.6 F L 10/26/23 07:30 Pulse 65 10/26/23 07:30 Resp 16 10/26/23 07:30 BP 108/55 L 10/26/23 07:30 Pulse Ox 98 10/26/23 07:30 O2 Del Method Room Air 10/26/23 07:30 BMI result Body Mass Index 27.1 bloo din both catheters General: AO X 3, no acute distress Resp: CTA bilateral, no accessory muscles used CVS: S1,S2,RRR GI: soft, non tender, non distended, ostomy in place Neuro: motor grossly intact, alert Psych: appropriate affect, appropriate insight Objective Data Active Medications Acetaminophen (Acetaminophen 325 Mg Tablet) 650 mg PO Q6H PRN PRN Reason: Pain, Mild (Pain Scale 1-3) Atorvastatin Calcium (Atorvastatin Calcium 20 Mg Tablet) 20 mg PO DAILY [facility] Last Admin: 10/25/23 08:18 Dose: 20 mg Documented By: CHRISTINE Fluoxetine HCl (Fluoxetine Hcl 20 Mg Capsule) 40 mg PO DAILY [facility] Last Admin: 10/25/23 08:18 Dose: 40 mg Documented By: CHRISTINE Melatonin (Melatonin 3 Mg Tablet) 6 mg PO BEDTIME PRN PRN Reason: Insomnia Metoprolol Tartrate (Metoprolol Tartrate 12.5 Mg Halftab) 12.5 mg PO BID [facility]; Protocol Last Admin: 10/25/23 20:58 Dose: 12.5 mg Documented By: JACKSON Comments: Bp 122/56 H 66 Morphine Sulfate (Morphine Sulfate Immed Release 15 Mg Tablet) 15 mg PO Q4H PRN PRN Reason: Pain, Severe (Pain Scale 7-10) Last Admin: 10/25/23 21:18 Dose: 15 mg Documented By: JACKSON Non-Formulary Medication (Vibegron [Gemtesa]) 75 mg PO DAILY [facility] Ondansetron HCl (Ondansetron Hcl 4 Mg/2 Ml Vial) 4 mg IVPUSH Q8H PRN PRN Reason: Nausea and Vomiting Sodium Chloride (0.9 % Sodium Chloride Flush 3 Ml Syringe) 3 ml IVFLUSH QSHIFT [facility] Last Admin: 10/25/23 23:46 Dose: 3 ml Documented By: JACKSON Labs 10/26/23 05:19 10/26/23 05:46 Labs: Laboratory Results - last 24 hr 10/26/23 10/26/23 05:19 05:46 MCV 94.0 MCH 30.2 MCHC 32.1 RDW 13.4 Plt Count 174 MPV 10.2 Absolute Nucleated RBC 0.000 Nucleated RBC % (auto) 0.0 Anion Gap 9 L Estim Creat Clear Calc 80.5 Estimated GFR > 60 Fasting Glucose 87 Calcium 8.1 L Urine Color Red A Urine Appearance Hazy Urine pH 6.5 Ur Specific [place] <= 1.005 Urine Protein 300 (3+) H Urine Glucose (UA) Negative Urine Ketones Negative Urine Blood Large (3+) H Urine Nitrite See Note Ur Leukocyte Esterase Large (3+) H Urine RBC >20 H Urine WBC >50 H Ur Squamous Epith Cells 0-2 Urine Bacteria 1+ Hyaline Casts 3-5 Assessment and Plan (1) Gross hematuria: Status: Acute Plan 68M PMH paroxysmal atrial fibrillation on Eliquis, mood disorder, essential hypertension, neurogenic bladder with suprapubic placed 10/23/23, peripheral vascular disease status post left BKA, history of diverticulitis status post colostomy who presented to the emergency department for evaluation of blood in urine. acute blood loss anemia due to Gross hematuria monitor h and h, gu eval, holding eliquis ongoing hematuria, stable h and h Paroxysmal atrial fibrillation holding Eliquis. Continue metoprolol Mood disorder fluoextine Peripheral vascular disease statin hypertension metoprolol DVT prophylaxis: Mechanical due to hematuria DNR/DNI reason for continued hospitalization:ongoing hematuria Quality Stroke Does the patient have a stroke diagnosis?: No VTE Prior VTE?: No VTE Risk Level:: Medical - moderate - high VTE Device Contraindication: N/A - Device Ordered VTE Drug Contraindication: Treatment Not Indicated
[2023-10-26] MEDS: 0.9 % Sodium Chloride Flush 3 ML SYRINGE IVFLUSH ×3 (09:15→21:09)
[2023-10-26] MEDS: Metoprolol Tartrate 12.5 MG HALFTAB PO ×2 (09:15→21:09)
[2023-10-26] MEDS: Atorvastatin Calcium 20 MG TABLET PO (09:15)
[2023-10-26] MEDS: FLUoxetine HCl 20 MG CAPSULE 40 MG PO (09:15)
[2023-10-26] MEDS: Morphine Sulfate Immed Release 15 MG TABLET PO (11:20)
[2023-10-26 15:04] VITALS: BP 108/55; PULSE 53; RESP 16; TEMP 36.1; O2SAT 95
--- NOTE | 2023-10-26 17:51 | HO.SKINPHOTO ---
Location: Category: Stage: Length: Width: Depth: cm Location: Category: Stage: Length: Width: Depth: cm Location: Category: Stage: Length: Width: Depth: cm Location: Category: Stage: Length: Width: Depth: cm Location: Category: Stage: Length: Width: Depth: cm Location: Category: Stage: Length: Width: Depth: cm
[2023-10-26 19:06] VITALS: BP 106/58; PULSE 62; RESP 18; TEMP 36.3; O2SAT 99
--- NOTE | 2023-10-26 19:25 | HO.SKINPHOTO ---
Location:buttocks Category: Stage: Length: Width: Depth: cm Location: Category: Stage: Length: Width: Depth: cm Location: Category: Stage: Length: Width: Depth: cm Location: Category: Stage: Length: Width: Depth: cm Location: Category: Stage: Length: Width: Depth: cm Location: Category: Stage: Length: Width: Depth: cm
[2023-10-26] MEDS: Acetaminophen 325 MG TABLET 650 MG PO (21:08)
[2023-10-27 03:50] VITALS: BP 109/56; PULSE 59; RESP 16; TEMP 35.9; O2SAT 99
[2023-10-27 07:06] LABS: Anion Gap 11 (12-20); Blood Urea Nitrogen 27 mg/dL (9-16); Calcium 8.1 mg/dL (8.4-10.2); Carbon Dioxide 26 mmol/L (22-29); Chloride 103 mmol/L (96-108); Creatinine Clr Calc Pharmacy 95.4; Estimated Glomerular Filt Rate > 60; Glucose Fasting 83 mg/dL (60-99); Potassium 4.3 mmol/L (3.3-5.1); Sodium 136 mmol/L (135-145)
[2023-10-27 07:14] LABS: Hematocrit 33.2 % (42.0-52.0); Hemoglobin 10.9 g/dl (14.0-18.0); Mean Corpuscular HGB Conc 32.8 g/dl (31.0-36.0); Mean Corpuscular Hemoglobin 29.9 pg (27.0-33.0); Mean Corpuscular Volume 91.2 fL (80.0-98.0); Mean Platelet Volume 10.3 fL (9.4-12.4); Platelet Count 173 X10*3/uL (160-400); Red Blood Count 3.64 X10*6/uL (4.60-5.80); Red Cell Distribution Width 13.3 % (11.0-16.0); White Blood Count 5.8 X10*3/uL (4.8-10.8)
[2023-10-27 07:48] VITALS: BP 99/62; PULSE 67; RESP 16; TEMP 36.7; O2SAT 99
[2023-10-27] MEDS: 0.9 % Sodium Chloride Flush 3 ML SYRINGE IVFLUSH ×3 (08:21→20:17)
[2023-10-27] MEDS: Atorvastatin Calcium 20 MG TABLET PO (08:21)
[2023-10-27] MEDS: FLUoxetine HCl 20 MG CAPSULE 40 MG PO (08:21)
--- NOTE | 2023-10-27 08:26 | HO.PM.IMPN ---
Subjective Subjective Date of Service: 10/27/23 Interval History: catheter tubes both appear clear, still with suprapubic pain Physical Exam Vital Signs: Vital Signs: Last Vital Signs Temp 98.0 F 10/27/23 07:48 Pulse 67 10/27/23 07:48 Resp 16 10/27/23 07:48 BP 99/62 10/27/23 07:48 Pulse Ox 99 10/27/23 07:48 O2 Del Method Room Air 10/27/23 07:48 BMI result Body Mass Index 27.1 blood in both catheters bags, but tubes with clear urine General: AO X 3, no acute distress Resp: CTA bilateral, no accessory muscles used CVS: S1,S2,RRR GI: soft, non tender, non distended, ostomy in place Neuro: motor grossly intact, alert Psych: appropriate affect, appropriate insight Objective Data Active Medications Acetaminophen (Acetaminophen 325 Mg Tablet) 650 mg PO Q6H PRN PRN Reason: Pain, Mild (Pain Scale 1-3) Last Admin: 10/26/23 21:08 Dose: 650 mg Documented By: JACKSON Atorvastatin Calcium (Atorvastatin Calcium 20 Mg Tablet) 20 mg PO DAILY [facility] Last Admin: 10/27/23 08:21 Dose: 20 mg Documented By: DOM Fluoxetine HCl (Fluoxetine Hcl 20 Mg Capsule) 40 mg PO DAILY [facility] Last Admin: 10/27/23 08:21 Dose: 40 mg Documented By: DOM Melatonin (Melatonin 3 Mg Tablet) 6 mg PO BEDTIME PRN PRN Reason: Insomnia Metoprolol Tartrate (Metoprolol Tartrate 12.5 Mg Halftab) 12.5 mg PO BID [facility]; Protocol Last Admin: 10/26/23 21:09 Dose: 12.5 mg Documented By: JACKSON Morphine Sulfate (Morphine Sulfate Immed Release 15 Mg Tablet) 15 mg PO Q4H PRN PRN Reason: Pain, Severe (Pain Scale 7-10) Last Admin: 10/26/23 11:20 Dose: 15 mg Documented By: DARRICK Ondansetron HCl (Ondansetron Hcl 4 Mg/2 Ml Vial) 4 mg IVPUSH Q8H PRN PRN Reason: Nausea and Vomiting Sodium Chloride (0.9 % Sodium Chloride Flush 3 Ml Syringe) [facility] Last Admin: 10/27/23 08:21 Dose: 3 ml Documented By: DOM Labs 10/27/23 05:39 10/27/23 05:39 Labs: Laboratory Results - last 24 hr 10/27/23 05:39 MCV 91.2 MCH 29.9 MCHC 32.8 RDW 13.3 Plt Count 173 MPV 10.3 Absolute Nucleated RBC 0.000 Nucleated RBC % (auto) 0.0 Anion Gap 11 L Estim Creat Clear Calc 95.4 Estimated GFR > 60 Fasting Glucose 83 Calcium 8.1 L Assessment and Plan (1) Gross hematuria: Status: Acute Plan 68M PMH paroxysmal atrial fibrillation on Eliquis, mood disorder, essential hypertension, neurogenic bladder with suprapubic placed 10/23/23, peripheral vascular disease status post left BKA, history of diverticulitis status post colostomy who presented to the emergency department for evaluation of blood in urine. acute blood loss anemia due to Gross hematuria monitor h and h, gu following, holding eliquis stable h and h Paroxysmal atrial fibrillation holding Eliquis. Continue metoprolol Mood disorder fluoextine Peripheral vascular disease statin hypertension metoprolol DVT prophylaxis: Mechanical due to hematuria DNR/DNI reason for continued hospitalization:monitoring hematuria Quality Stroke Does the patient have a stroke diagnosis?: No VTE Prior VTE?: No VTE Risk Level:: Medical - moderate - high VTE Device Contraindication: N/A - Device Ordered VTE Drug Contraindication: Treatment Not Indicated
--- NOTE | 2023-10-27 10:26 | MHC.CM.PN ---
EMR REVIEWED. PER MD ROUNDS PATIENT NOT MEDICALLY CLEARED FOR DC, AWAITING UROLOGY. CM WILL CONTINUE TO FOLLOW.
[2023-10-27] MEDS: Acetaminophen 325 MG TABLET 650 MG PO (10:48)
[2023-10-27] MEDS: Morphine Sulfate Immed Release 15 MG TABLET PO ×2 (11:19→15:56)
--- NOTE | 2023-10-27 15:44 | PC.NURSE ---
Per Dr. Thurston remove penile catheter. FC removed, pt tolerated well. MD Thurston made aware pt has small amount of bleeding from superpubic insertion site, urine is clear in tubing.
[2023-10-27 15:53] VITALS: BP 112/57; PULSE 65; RESP 16; TEMP 36.6; O2SAT 98
--- NOTE | 2023-10-27 16:42 | HO.WOUND ---
Wound Consult: Initial 68yr old male admitted to [facility] on?10/24/23 17:41 - See progress notes and H&P for detailed history. Wound consult placed for Right 4th toe wound POA. Arrival to bedside pt was agreeable to assessment - reports the toe injury is from his own attempt to cut his nails. He reports he at times has treated with Podiatry or his [employer]AND AC[employer]ISITION ANALYST will cut his nails but this occurred when he attempted to cut his own nails. Recommend Podiatry outpt follow up at time of discharge. This justowriter operator know the patient from previous admissions he reports his bilateral ischial wounds have healed - he was reluctant to allow my assessment but ultimately did. Both ischial wounds remain open and in need of light packing. Periwound is noted for previous injury but less erythema than last admission. The patients scrotum is noted MASD and is hyperpigmented with maceration noted - recommend barrier cream to protect from moisture and friction. The Patients penis is noted for hypospadia and urology is following patient and aware the F/C is leaking. Suprapubic is in place as well. Buttock, bilateral Ischium and scrotum right Ischium Left Ischium Scrotum Etiology: ??MASD-IAD (Moisture Associated Skin Damage - Incontinence Associated Dermatitis) Wound Bed: Macerated hyperpigmentation intact tissue noted Drainage / Odor: None [place] wound: ? No Induration, Fluctuance or Warmth noted Pain: reports pain Goals of Treatment: ? Barrier cream and off load pressure Left Ischium Etiology: ??Stage 4 Pressure Injury Wound Bed: unable to visulaize wound bed Drainage / Odor: scant serosang no odor noted Edges: ? Irregular nonadherent [place] wound: ?immediate periwound with maceration noted - hypopigmentation and scar tissue noted No Induration, Fluctuance or Warmth noted Pain: denies Goals of Treatment: ? packing strip packing and off load pressure Right Ischium Etiology: ??Stage 4 Pressure Injury Wound Bed: unable to visulaize wound bed Drainage / Odor: scant sanguineous no odor noted Edges: ? Irregular nonadherent [place] wound: ?immediate periwound with maceration noted - hypopigmentation and scar tissue noted No Induration, Fluctuance or Warmth noted Pain: denies Goals of Treatment: ? packing strip packing and off load pressure Right 4th Toe Etiology: Traumatic injury secondary to cutting his own nails Wound Bed: moist pale pink wound bed with scabbed dried drainage to wound edges Edges: ? Irregular and adherent [place] wound: intact - dry thick callused tissue Pain: denies Goals of Treatment: ? Moist wound healing with Hydrocolloid dressing Recommendations: 1. Turn and Reposition every 2 hours and as needed for patient comfort.? Use pillows or wedges to support off loading positions. 2. Off Load all bony prominences with use of pillows and heel boots if needed.? Apply Preventative foams where needed. ? 3. Monitor for incontinence and moisture control, use barrier creams when needed for prevention and treatment. 4. Provide adequate and supplemental nutrition. 5. Order low air loss mattress. 6. Bilateral Ischium - Off Load Pressure - Cleanse and irrigate with NS, Pat dry.? Apply barrier to periwound, lightly pack with 1/4 packing strip gauze, be sure to leave a wick to easy removal.? Cover with dry gauze to fill space and Foam dressing.? Change Daily. 7. Buttocks and scrotum - Off Load Pressure - Cleanse with PH balance spray or wipes, pat dry. ?Apply thin layer of barrier cream to wound bed - only pat and dab no scrub and rub when soiling occurs. Reapply thin layer PRN after each episode of incontinence. 8. Right 4th Toe - Cleanse with NS moist gauze. Cover wound bed with Hydrocolloid cut to size. Change every 3 days. Re-consult wound care Nurse for wound deterioration or wound changes.
--- NOTE | 2023-10-27 18:18 | PC.NURSE ---
MD Acosta made aware via tiger text at 10:52 pt is reporting he has had no stool output from his ostomy bag for some time . Pt could not elaborate on the amount of time but assistant shift supervisor RN had reported brown output from ostomy on their shift. Pt states he does not want stool softeners or laxatives but would like to see GI. No new orders at this time.
--- NOTE | 2023-10-27 19:09 | PM.EVENT ---
Event Note Date of Service: 10/27/23 Event Note: Urine culture with gram negative rods. Will initiate IV ceftriaxone Time Spent With Patient Time: Total time managing care of this patient today ____ minutes.
[2023-10-27 19:48] VITALS: BP 112/60; PULSE 62; RESP 18; TEMP 36.7; O2SAT 98
[2023-10-27] MEDS: Metoprolol Tartrate 12.5 MG HALFTAB PO (20:16)
[2023-10-27] MEDS: cefTRIAXone sodium 1 GM in 0.9 % Sodium Chloride 50 ML IV (20:17)
[2023-10-28 03:00] VITALS: BP 108/61; PULSE 60; RESP 18; TEMP 36.1; O2SAT 98
[2023-10-28 06:48] LABS: Anion Gap 11 (12-20); Blood Urea Nitrogen 31 mg/dL (9-16); Calcium 8.5 mg/dL (8.4-10.2); Carbon Dioxide 24 mmol/L (22-29); Chloride 105 mmol/L (96-108); Creatinine Clr Calc Pharmacy 91.2; Estimated Glomerular Filt Rate > 60; Glucose Fasting 86 mg/dL (60-99); Potassium 4.5 mmol/L (3.3-5.1); Sodium 135 mmol/L (135-145)
[2023-10-28 07:02] LABS: Hematocrit 32.8 % (42.0-52.0); Mean Corpuscular HGB Conc 33.5 g/dl (31.0-36.0); Mean Corpuscular Hemoglobin 30.8 pg (27.0-33.0); Mean Corpuscular Volume 91.9 fL (80.0-98.0); Mean Platelet Volume 10.4 fL (9.4-12.4); Platelet Count 201 X10*3/uL (160-400); Red Blood Count 3.57 X10*6/uL (4.60-5.80); Red Cell Distribution Width 13.4 % (11.0-16.0)
[2023-10-28 07:57] VITALS: BP 131/83; PULSE 73; RESP 20; TEMP 36.3; O2SAT 96
--- NOTE | 2023-10-28 08:27 | P.PNIM_ITS ---
Subjective Subjective Date of Service: 10/28/23 Interval History: penile catheter removed, suprapubic clear, still with suprapubic pain Physical Exam 2 Vital Signs: Vital Signs: Last Vital Signs Temp 97.4 F 10/28/23 07:57 Pulse 73 10/28/23 07:57 Resp 20 10/28/23 07:57 BP 131/83 10/28/23 07:57 Pulse Ox 96 10/28/23 07:57 O2 Del Method Room Air 10/28/23 07:57 BMI result Body Mass Index 27.1 General: AO X 3, no acute distress Resp: CTA bilateral, no accessory muscles used CVS: S1,S2,RRR GI: soft, non tender, non distended Neuro: motor grossly intact, alert Psych: appropriate affect, appropriate insight Objective Data Active Medications Acetaminophen (Acetaminophen 325 Mg Tablet) 650 mg PO Q6H PRN PRN Reason: Pain, Mild (Pain Scale 1-3) Last Admin: 10/27/23 10:48 Dose: 650 mg Documented By: JUDD Atorvastatin Calcium (Atorvastatin Calcium 20 Mg Tablet) 20 mg PO DAILY [facility] Last Admin: 10/27/23 08:21 Dose: 20 mg Documented By: DOM Fluoxetine HCl (Fluoxetine Hcl 20 Mg Capsule) 40 mg PO DAILY [facility] Last Admin: 10/27/23 08:21 Dose: 40 mg Documented By: DOM Ceftriaxone Sodium 1 gm/ (Sodium Chloride) 50 mls @ 100 mls/hr IV Q24H [facility] Last Infusion: 10/27/23 20:50 Dose: Infused Documented By: RAMSES Melatonin (Melatonin 3 Mg Tablet) 6 mg PO BEDTIME PRN PRN Reason: Insomnia Metoprolol Tartrate (Metoprolol Tartrate 12.5 Mg Halftab) 12.5 mg PO BID [facility]; Protocol Last Admin: 10/27/23 20:16 Dose: 12.5 mg Documented By: RAMSES Morphine Sulfate (Morphine Sulfate Immed Release 15 Mg Tablet) 15 mg PO Q4H PRN PRN Reason: Pain, Severe (Pain Scale 7-10) Last Admin: 10/27/23 15:56 Dose: 15 mg Documented By: JUDD Ondansetron HCl (Ondansetron Hcl 4 Mg/2 Ml Vial) 4 mg IVPUSH Q8H PRN PRN Reason: Nausea and Vomiting Sodium Chloride (0.9 % Sodium Chloride Flush 3 Ml Syringe) 3 ml IVFLUSH QSHIFT [facility] Last Admin: 10/27/23 20:17 Dose: 3 ml Documented By: RAMSES Labs 10/28/23 06:13 10/28/23 06:13 Labs: Laboratory Results - last 24 hr 10/28/23 06:13 MCV 91.9 MCH 30.8 MCHC 33.5 RDW 13.4 Plt Count 201 MPV 10.4 Absolute Nucleated RBC 0.000 Nucleated RBC % (auto) 0.0 Anion Gap 11 L Estim Creat Clear Calc 91.2 Estimated GFR > 60 Fasting Glucose 86 Calcium 8.5 Microbiology Microbiology Results: Microbiology 10/26/23 Unknown Urine Culture - Final Urine Catheterized - Napier Catheter Proteus mirabilis Assessment and Plan (1) Gross hematuria: Status: Acute Plan 68M PMH paroxysmal atrial fibrillation on Eliquis, mood disorder, essential hypertension, neurogenic bladder with suprapubic placed 10/23/23, peripheral vascular disease status post left BKA, history of diverticulitis status post colostomy who presented to the emergency department for evaluation of blood in urine. acute blood loss anemia due to Gross hematuria resolved, holding eliquis uti gnr in urine rocephin, follow up cultures Paroxysmal atrial fibrillation holding Eliquis. Continue metoprolol Mood disorder fluoextine Peripheral vascular disease statin hypertension metoprolol DVT prophylaxis: Mechanical due to hematuria DNR/DNI reason for continued hospitalization:monitoring hematuria, awaiting culture Quality Stroke Does the patient have a stroke diagnosis?: No VTE Prior VTE?: No VTE Risk Level:: Medical - moderate - high VTE Device Contraindication: N/A - Device Ordered VTE Drug Contraindication: Treatment Not Indicated
[2023-10-28] MEDS: Morphine Sulfate Immed Release 15 MG TABLET PO (09:27)
[2023-10-28] MEDS: Metoprolol Tartrate 12.5 MG HALFTAB PO (09:27)
[2023-10-28] MEDS: Atorvastatin Calcium 20 MG TABLET PO (09:28)
[2023-10-28] MEDS: FLUoxetine HCl 20 MG CAPSULE 40 MG PO (09:28)
[2023-10-28] MEDS: 0.9 % Sodium Chloride Flush 3 ML SYRINGE IVFLUSH ×2 (09:28→19:40)
[2023-10-28 15:35] VITALS: BP 107/58; PULSE 58; RESP 20; TEMP 36.6; O2SAT 98
[2023-10-28 19:26] VITALS: BP 112/68; PULSE 64; RESP 18; TEMP 36.4; O2SAT 96
[2023-10-28] MEDS: cefTRIAXone sodium 1 GM in 0.9 % Sodium Chloride 50 ML IV (19:40)
[2023-10-29 02:53] VITALS: BP 109/58; PULSE 67; RESP 18; TEMP 36.2; O2SAT 97
[2023-10-29 07:50] VITALS: BP 137/68; PULSE 68; RESP 20; TEMP 36.4; O2SAT 97
--- NOTE | 2023-10-29 08:00 | P.DS_ITS ---
DS: Providers Provider Date of Service: 10/29/23 Date of admission: 10/24/23 19:24 Primary care physician: Bolivar Harris MD Consults: 10/24/23 19:26 Consult to Urology Routine Consulting Provider: Dhruv Thurston Reason for consultation: Hematuria 10/27/23 12:04 Consult to Wound Care Routine Reason for consultation: right foot 4th toenail drainage/scabbing DS: Diagnosis Discharge Diagnosis (1) Gross hematuria: Status: Acute DS: Summary Hospital Course Hospital Course: from initial hpi: 68-year-old male with pertinent history of paroxysmal atrial fibrillation on Eliquis, mood disorder, essential hypertension, neurogenic bladder on chronic Napier, peripheral vascular disease status post left BKA, history of diverticulitis status post colostomy who presents to the emergency department for evaluation of blood in urine. Patient states he has not taken his Eliquis for a week. Patient underwent cystoscopy and suprapubic catheter placement by Urology yesterday. He states that after the procedure he noticed blood in his urine. It continued overnight which prompted visit. No fever, chills, abdominal discomfort. Patient denies being on antiplatelet agent. No chest d iscomfort, palpitations, shortness of breath, changes in bowel habits. In the emergency department, patient was initiated on continuous bladder irrigation. hospital course: Patient was admitted for acute blood loss anemia due to gross hematuria due to urinary tract infection inpatient with recently placed suprapubic catheter. Patient's apixaban was held. Hematuria resolved. Penile catheter was removed. Urine grew Proteus. Was treated with ceftriaxone and will be continued on 5 more days of cefuroxime. We will rechallenge with apixaban and several days. He should follow up with Urology as outpatient. For paroxysmal atrial fibrillation his Eliquis was held and he was continued on metoprolol. For mood disorder was continued on Prozac. For peripheral vascular disease was continued on statin. For hypertension was continued on metoprolol. Patient is feeling better will be discharged home. Time Attestation Discharge coordination time: Greater than 30 minutes Quality: Safe Use of Opioids Does Pt have an Active Cancer Diagnosis on the Problem List?: No Quality: Stroke Does the patient have a stroke diagnosis?: No Physical Exam Vital Signs: Vital Signs: Last Vital Signs Temp 97.6 F 10/29/23 07:50 Pulse 68 10/29/23 07:50 Resp 20 10/29/23 07:50 BP 137/68 10/29/23 07:50 Pulse Ox 97 10/29/23 07:50 O2 Del Method Room Air 10/29/23 07:50 BMI result Body Mass Index 27.1 General: AO X 3, no acute distress Resp: CTA bilateral, no accessory muscles used CVS: S1,S2,RRR GI: soft, non tender, non distended Neuro: motor grossly intact, alert Psych: appropriate affect, appropriate insight DS: Data Data Completed and Pending Completed studies during hospitalization [Text1]: Procedures Change Drainage Device in Bladder, External Approach (04/07/21) Excision of Large Intestine, Via Natural or Artificial Opening Endoscopic, Diagnostic (07/24/23) Transfusion of Nonautologous Red Blood Cells into Peripheral Vein, Percutaneous Approach (04/07/21) Discharge Plan Discharge Anticipated Discharge Date/Time: 10/29/23 07:58 Patient Disposition: Home, Self-Care Discharge Diagnosis: hematuria, uti Referrals: Dhruv Thurston MD [Physician] - 1 Week Bolivar Johnson MD [Primary Care Provider] - 1 Week Discharge Medications: New cefuroxime axetil 500 mg tablet 500 mg PO BID Qty: 10 0RF Continued atorvastatin 20 mg tablet 1 tab PO DAILY furosemide 20 mg tablet 1 tab PO BID metoprolol tartrate 25 mg tablet 0.5 tab PO BID fluoxetine 40 mg capsule 40 mg PO DAILY Gemtesa 75 mg tablet 75 mg PO DAILY Held Eliquis 5 mg tablet 1 tab PO BID Hold Instructions: Resume on 11/01/23. Discharge Orders: Discharge Order (Routine); Ordered 10/29/23 Ordered By: Bong Acosta Diet: Advance to usual diet Activity on Discharge: As tolerated Stand Alone Forms: Patient Portal Discharge page Care Plan Goals: recovery Health Concerns: hematuria, uti Plan of Treatment: 5 more days ceftin, rechallenge with eliquis in several days, follow up with urology Assessment: see above
[2023-10-29] MEDS: 0.9 % Sodium Chloride Flush 3 ML SYRINGE IVFLUSH (08:41)
[2023-10-29] MEDS: Atorvastatin Calcium 20 MG TABLET PO (08:41)
[2023-10-29] MEDS: FLUoxetine HCl 20 MG CAPSULE 40 MG PO (08:41)
[2023-10-29] MEDS: Metoprolol Tartrate 12.5 MG HALFTAB PO (08:41)
[2023-10-29] MEDS: Acetaminophen 325 MG TABLET 650 MG PO (08:48)
--- NOTE | 2023-10-29 10:44 | P.PNUR_ITS ---
Subjective Subjective Date of Service: 10/29/23 Interval history: Urine clear Minimal urine coming from penis Completing antibiotics Has planned suprapubic tube change in office as outpatient May restart anticoagulation in 48 hours No active urologic issues currently Physical Exam 2 Vital Signs: Vital Signs: Last Vital Signs Temp 97.6 F 10/29/23 07:50 Pulse 68 10/29/23 07:50 Resp 20 10/29/23 07:50 BP 137/68 10/29/23 07:50 Pulse Ox 97 10/29/23 07:50 O2 Del Method Room Air 10/29/23 07:50 BMI result Body Mass Index 27.1 Const: General: cooperative, healthy appearing, comfortable and no acute distress Orientation/consciousness: patient oriented x3 HEENT: Face and sinus: Yes normal facial exam Mouth: moist mucous membranes Neck: Neck: Yes normal visual inspection, Yes full ROM and Yes trachea midline Chest: Chest palpation & inspection: normal inspection of the chest Resp: Effort & Inspection: normal respiratory effort, able to speak in complete sentences and no respiratory distress GI: Inspection: Yes normal to inspection Back/Spine/Pelvis: Cervical Spine: normal cervical lordosis Thoracic/Lumbar Spine: thoracic and lumbar spine normal to inspection Skin: General skin exam: no rashes or lesions noted Neuro: General: patient oriented x3, tone normal and moves all extremities Extrem: General: Yes normal to inspection and Yes capillary refill normal Urology Results Labs 10/28/23 06:13 10/28/23 06:13 Progress Note: A&P Assessment and plan (1) Gross hematuria: Status: Acute (2) UTI (urinary tract infection) due to urinary indwelling Napier catheter: Status: Acute Plan Outpatient follow-up Time Spent With Patient Time: Total time managing care of this patient today ____ minutes. Progress Note: Quality Stroke Does the patient have a stroke diagnosis?: No
--- NOTE | 2023-10-29 10:57 | MHC.CM.PN ---
PT CLEARED TO DC HOME TODAY WITH RESUMPTION OF HIS SNAILER SERVICES PT REPORTS HIS SNAILER WILL NOT BE AVAILABLE UNTIL AROUND DINNERTIME TRANSPORT BOOKED FOR 1800 HOURS VIA [facility]
[2023-10-29] MEDS: Phenazopyridine HCL 100 MG TABLET PO (14:08)
[2023-10-29 15:31] VITALS: BP 115/63; PULSE 62; RESP 16; TEMP 36.2; O2SAT 67
--- NOTE | 2023-10-29 17:31 | PC.NURSE ---
Patient discharging this evening. T/w assessed colostomy site and pouch. Moderate amount of soft, formed light brown stool present in pouch. Patient refused to have pouch empty before leaving. Ambulance set to arrive for an 1800 pickup.
== END 2023-10-29 18:31 | disposition home or self-care (01) | DRG 699 ==
LOC: HO.ED 19:21 → HO.EDOVER 19:29 → HO.S3 10-25 08:46
PROVIDERS: Admitting Provider Student in an Organized Health Care Education/Training Program; Emergency Provider Internal Medicine; PCP Internal Medicine; Visit Provider Internal Medicine
DX: T83.518A Infection and inflammatory reaction due to other urinary catheter, initial encounter (principal); D62 Acute posthemorrhagic anemia; N39.0 Urinary tract infection, site not specified; B96.4 Proteus (mirabilis) (morganii) as the cause of diseases classified elsewhere; N31.9 Neuromuscular dysfunction of bladder, unspecified; R31.0 Gross hematuria; Z66 Do not resuscitate; F39 Unspecified mood [affective] disorder; I73.9 Peripheral vascular disease, unspecified; I48.0 Paroxysmal atrial fibrillation; Z89.512 Acquired absence of left leg below knee; Z99.3 Dependence on wheelchair; Z93.3 Colostomy status; Z87.891 Personal history of nicotine dependence; Z86.718 Personal history of other venous thrombosis and embolism; Z79.01 Long term (current) use of anticoagulants; Z79.899 Other long term (current) drug therapy
CPT/HCPCS: 36415; 74018; 76998; 80048; 80053; 81001; 85025; 85027; 85610; 87086; 87088; 87186; 92950; 99285; C1758; J0696; J1956; J2270; J2405; J2704; J2795

== ENCOUNTER → 2023-10-24 19:24 | Outpatient (BNV) | payer MEDICARE, MEDICAID, SELFPAY | PROVIDERS: Admitting Provider Student in an Organized Health Care Education/Training Program; Emergency Provider Internal Medicine; PCP Internal Medicine; Visit Provider Urology | DX: R31.0 Gross hematuria (principal); T83.511A Infection and inflammatory reaction due to indwelling urethral catheter, initial encounter; N39.0 Urinary tract infection, site not specified | CPT/HCPCS: 99231 ==

== ENCOUNTER → 2023-10-24 19:24 | Outpatient (BNV) | payer MEDICARE, MEDICAID, SELFPAY | PROVIDERS: Admitting Provider Student in an Organized Health Care Education/Training Program; Emergency Provider Internal Medicine; Visit Provider Student in an Organized Health Care Education/Training Program | DX: R31.0 Gross hematuria (principal); D64.9 Anemia, unspecified; I48.91 Unspecified atrial fibrillation | CPT/HCPCS: 99222; 99232; 99239 ==

== ENCOUNTER 2023-11-06 16:33 | Emergency (ER) | payer MEDICARE, MEDICAID, SELFPAY ==
--- NOTE | ~2023-11-06 | CT_ITS ---
EXAMINATION: CT ABDOMEN AND PELVIS WITHOUT CONTRAST CLINICAL INFORMATION: pelvis pain, ? gangrene. COMPARISON: 10/02/2023. TECHNIQUE: Multidetector volumetric imaging was performed from the superior aspect of the liver through the pubic symphysis without contrast per request. Sagittal and coronal reformatted images were obtained on the technologist workstation. This CT examination was performed using dose optimization techniques as appropriate, variously including the following: *Automated exposure control *Adjustment of mA and/or kV according to patient size (this includes techniques or standardized protocols for targeted exams where dose is matched to indication/reason for exam; i.e. extremities or head) *Use of iterative reconstruction technique DLP: 947 mGy-cm. FINDINGS: LUNG BASES: The visualized lung bases are unremarkable. Aortic dissection with calcification is again noted but this is not able to be assessed further on this noncontrast study and was better seen on the recent prior contrast-enhanced examination LIVER, GALLBLADDER, BILIARY TREE: The non-contrast liver is normal in size, shape, and attenuation. No focal hepatic lesion or biliary ductal dilatation is present. Gallbladder surgically absent PANCREAS: Unremarkable. SPLEEN: Unremarkable. ADRENAL GLANDS: Unremarkable. KIDNEYS AND URETERS: The kidneys are normal in size, shape, and attenuation. No hydronephrosis, hydroureter, or perinephric stranding. No calculi. BLADDER: Decompressed with suprapubic catheter GASTROINTESTINAL TRACT: Kamara's pouch with small amount residual stool in the rectum. Left lower quadrant colostomy with parastomal hernia. There is no obstructive changes in the colon up to the colostomy site. Few scattered colonic diverticula are noted. Visualized small bowel unremarkable ABDOMINAL WALL: Parastomal hernia in the left mid abdomen. Fat containing periumbilical hernia. Bilateral ischial tuberosity decubitus ulcers are again seen. I do not appreciate any discrete drainable abscess. LYMPHOVASCULAR STRUCTURES: Extensive vascular calcification within the aorta iliac system with aortic dissection is much better delineated on the prior recent contrast enhanced study. PELVIC VISCERA: Unremarkable. OSSEUS STRUCTURES: Extensive degenerative changes in the spine similar to the recent prior study. CT/CT abdomen pelvis wo IV con IMPRESSION: Chronic appearing and postoperative changes as described above. I do not appreciate any acute intra-abdominal process.
[2023-11-06 16:59] VITALS: BP 142/72; PULSE 75; O2SAT 97
[2023-11-06 17:07] VITALS: BP 123/67; PULSE 74; RESP 16; TEMP 36.4; O2SAT 98; BMI 27.4
--- NOTE | 2023-11-06 17:41 | ED_ITS ---
HPI - General Adult General Chief complaint: Wound/Laceration Stated complaint: SUPRAPUBIC CATHETER PLACED,EXPERIENCEING 8/10 PAIN Time Seen by Provider: 11/06/23 17:03 History of Present Illness HPI narrative: Patient is a 68-year-old male with a history suprapubic catheter placement on October 23. Patient initially has a Napier catheter through his penis. It was replaced to a suprapubic catheter. Patient complaining of low abdominal pain still. There has no fever no chills. No chest pain. No coughing congestion upper respiratory symptoms. Patient claims the suprapubic catheter still draining. The pain is more extensive in the groin area not so much the suprapubic area. Related Data Home Medications Medication Instructions Recorded Confirmed apixaban 5 mg tablet (Eliquis) 1 tab PO BID 04/07/21 10/24/23 atorvastatin 20 mg tablet 1 tab PO DAILY 04/07/21 10/24/23 furosemide 20 mg tablet 1 tab PO BID 04/07/21 10/24/23 metoprolol tartrate 25 mg tablet 0.5 tab PO BID 07/02/21 10/24/23 fluoxetine 40 mg capsule 40 mg PO DAILY 07/25/23 10/24/23 vibegron 75 mg tablet (Gemtesa) 75 mg PO DAILY 10/19/23 10/24/23 Previous Rx's Medication Instructions Recorded cefuroxime axetil 500 mg tablet 500 mg PO BID #10 tabs 10/29/23 Allergies Allergy/AdvReac Type Severity Reaction Status Date / Time No Known Allergies Allergy Verified 09/27/23 11:34 [No Known Allergies*] Review of Systems 2 Review of Systems: No fever no chills no chest pain or shortness of breath PMFSH Past Medical History Attestation statement: The following information was validated with the patient. Medical History Parastomal hernia Chronic indwelling Napier catheter Atrial fibrillation with slow ventricular response Left below-knee amputee Chronic indwelling Napier catheter Elevated cholesterol Muscle weakness Embolism Atrial fibrillation Essential hypertension Major depressive disorder COVID Surgical History S/P colostomy H/O colonoscopy Hx of cholecystectomy History of AAA (abdominal aortic aneurysm) repair Social History Social History Household Members: Other Household Members Other:: self Housing: Apartment Are you a primary life care planner to a significant other at home: No Do you presently have visiting nurse or other home services: Yes Alcohol intake: former Comment: Refusing red fall risk wrist band. Patient Tobacco Use Status: Former Tobacco user Quit Date: age 48's Tobacco use type: Cigarette Smoked in Last 30 Days: No Use of substances other than those prescribed or required for medical reasons: No Advance Directives: Yes Advance Directives on File: Yes Advance Directives Date on File: 04/08/21 service: No Current occupational status: disabled Physical Exam ED Vital Signs: Vital Signs - 24 hr 11/06/23 17:07 11/06/23 18:00 Temperature 97.5 F 97.7 F Pulse Rate 74 74 Respiratory Rate 16 16 Blood Pressure 123/67 100/58 L Pulse Oximetry 98 98 Oxygen Delivery Method Room Air Room Air BMI result Body Mass Index 27.4 Appearance: Alert. Oriented X3. No acute distress. Eyes: Pupils equal, round and reactive to light. ENT: Pharynx normal. Neck: Normal inspection. Neck supple. No lymph nodes noted. No crepitus CVS: Normal heart rate and rhythm. Pulses normal. Normal S1 and S2 Respiratory: No respiratory distress. Breath sounds normal. No Wheezing. No rales Abdomen: Soft and nontender. No rigidity. Ostomy site intact. Positive brown stool in the bag. Suprapubic site does not look grossly infected. There is urine draining in the catheter. No distention. good BS x4 Skin: Skin warm and dry. Normal skin color. Normal skin turgor. Extremities: Positive lower extremity old deformities noted on the right side. There is a status post [id number] amputation on the left side. Distal skin intact. There has no redness. There has no discharge. Neuro: Oriented X 3. No motor deficit. No sensory deficit. Moving all extermities. No slurred speech Medications Administered Discontinued Medications Generic Name Dose Route Start Last Admin Trade Name Freq PRN Reason Stop Dose Admin Hydrocodone Bitart/Acetaminophen 1 tab 11/06/23 20:09 11/06/23 20:28 Hydrocodone Bit/Acetam 5/325 Tablet PO 11/06/23 20:10 1 tab ONCE ONE Administration Sodium Chloride 1,000 mls @ 999 mls/hr 11/06/23 17:45 11/06/23 20:28 Ns IV 11/06/23 18:45 Infused .Q1H1M KELLY Infusion Medical Decision Making Medical Decision Making [facility] Narrative: Patient is 68-year-old male presents today complaining of pain in the lower abdomen. He has a history of having a suprapubic catheter placed on October 23. Patient claims the catheter is draining. A bladder scan done showed no residual urine. Patient on exam has no gross redness in the genital area. No crepitus on palpation. Penis deformed likely from chronic Napier use. Patient's lower extremity showed no redness. No discharge. No tenderness to touch. Status post mylfy-paf-talt amputation on the left side. Gross deformity noted on the right foot which is chronic. Patient received a CT scan of the abdomen pelvis. There is no evidence for any acute abdominal pathology. No obstruction no abscess no perforation. No free air in the soft tissue. Will discharge patient home. Close follow-up on an outpatient basis. Differential Diagnosis Differential Diagnoses: The differential diagnosis associated with the presentation includes Obstruction abscess perforation, gas gangrene, obstructed suprapubic catheter Admission/Observation Consideration of admission/observation: Escalation of care including admission/observation considered Lab Data [facility] Lab Attestation statement: I reviewed the patient's lab results. 11/06/23 18:06 11/06/23 18:06 Labs: Lab Results 11/06/23 Range/Units 18:06 WBC 6.3 (4.8-10.8) X10*3/uL RBC 3.94 L (4.60-5.80) X10*6/uL Hgb 11.8 L (14.0-18.0) g/dl Hct 35.8 L (42.0-52.0) % MCV 90.9 (80.0-98.0) fL MCH 29.9 (27.0-33.0) pg MCHC 33.0 (31.0-36.0) g/dl RDW 13.6 (11.0-16.0) % Plt Count 251 (160-400) X10*3/uL MPV 9.7 (9.4-12.4) fL Immature Gran % (Auto) 0.3 (0.0-0.4) % Neut % (Auto) 65.1 (45-73) % Lymph % (Auto) 21.7 (20-40) % [place] % (Auto) 8.7 (2-11) % Eos % (Auto) 3.2 (0-4) % Baso % (Auto) 1.0 (0-2) % Lymph # (Auto) 1.4 (1.2-4.9) X10*3/uL [place] # (Auto) 0.6 (0.1-1.2) X10*3/uL Eos # (Auto) 0.2 (0.0-0.4) X10*3/uL Baso # (Auto) 0.1 (0.0-0.2) X10*3/uL Abs Immat Gran (auto) 0.02 (0.00-0.03) X10*3/uL Absolute Neuts (auto) 4.1 (2.0-8.3) x10*3/uL Absolute Nucleated RBC 0.000 (0.0-0.012) X10*3/uL Nucleated RBC % (auto) 0.0 (0.0-0.2) /100WBC Sodium 138 (135-145) mmol/L Potassium 4.4 (3.3-5.1) mmol/L Chloride 108 (96-108) mmol/L Carbon Dioxide 22 (22-29) mmol/L Anion Gap 12 (12-20) BUN 22 H (9-16) mg/dL Creatinine 0.67 (0.5-1.4) mg/dL Estim Creat Clear Calc 100.3 Estimated GFR > 60 Random Glucose 99 (60-115) mg/dL Lactic Acid 1.2 (0.5-2.0) mmol/L Calcium 8.2 L (8.4-10.2) mg/dL Total Bilirubin 0.6 (0.0-1.0) mg/dL Direct Bilirubin 0.2 (0.0-0.5) mg/dL AST 19 (5-37) U/L ALT 15 (0-40) U/L Alkaline Phosphatase 76 (39-117) U/L Total Protein 6.6 (6.5-8.0) g/dL Albumin 3.3 L (3.5-5.0) g/dL Independent Interpretation I performed an independent interpretation of an: CT Scan (Grossly negative) Radiology Impression Discussion of test interpretation with radiology: I have reviewed the radiologist's reading. External Record Review External record reviewed: Office record Previous cardiology records reviewed Chronic Conditions Previous history of UTI, neurogenic bladder, urinary retention Discharge Plan Discharge Clinical Impression: Abdominal pain Patient Disposition: Home, Self-Care Instructions: Abdominal Pain (ED) Prescriptions: No Action atorvastatin 20 mg tablet 1 tab PO DAILY furosemide 20 mg tablet 1 tab PO BID Eliquis 5 mg tablet 1 tab PO BID Hold Instructions: Resume on 11/01/23. metoprolol tartrate 25 mg tablet 0.5 tab PO BID cefuroxime axetil 500 mg tablet 500 mg PO BID Qty: 10 0RF fluoxetine 40 mg capsule 40 mg PO DAILY Gemtesa 75 mg tablet 75 mg PO DAILY Referrals: Bolivar Johnson MD [Primary Care Provider] - 11/08/23
[2023-11-06 18:00] VITALS: BP 100/58; PULSE 74; RESP 16; TEMP 36.5; O2SAT 98
[2023-11-06] MEDS: 0.9 % Sodium Chloride 1,000 ML 999 ML IV (18:07)
--- NOTE | 2023-11-06 18:12 | PC.NURSE ---
20gIV placed in the left forearm - labs obtained/sent to lab. IVF administered per provider order.
[2023-11-06 18:13] LABS: MANUAL DIFF FLAG NO
[2023-11-06 18:28] LABS: Basophils Absolute Auto 0.1 X10*3/uL (0.0-0.2); Eosinophils Absolute Auto 0.2 X10*3/uL (0.0-0.4); Eosinophils Percent Auto 3.2 % (0-4); Hematocrit 35.8 % (42.0-52.0); Hemoglobin 11.8 g/dl (14.0-18.0); Imm Gran Abs Auto 0.02 X10*3/uL (0.00-0.03); Imm Gran Pct Auto 0.3 % (0.0-0.4); Lactic Acid 1.2 mmol/L (0.5-2.0); Lymphocytes Absolute Auto 1.4 X10*3/uL (1.2-4.9); Lymphocytes Percent Auto 21.7 % (20-40); Mean Corpuscular Hemoglobin 29.9 pg (27.0-33.0); Mean Corpuscular Volume 90.9 fL (80.0-98.0); Mean Platelet Volume 9.7 fL (9.4-12.4); Monocytes Absolute Auto 0.6 X10*3/uL (0.1-1.2); Monocytes Percent Auto 8.7 % (2-11); Neutrophils Absolute Auto 4.1 x10*3/uL (2.0-8.3); Neutrophils Percent Auto 65.1 % (45-73); Platelet Count 251 X10*3/uL (160-400); Red Blood Count 3.94 X10*6/uL (4.60-5.80); Red Cell Distribution Width 13.6 % (11.0-16.0); White Blood Count 6.3 X10*3/uL (4.8-10.8)
[2023-11-06 18:35] LABS: Alanine Aminotransferase 15 U/L (0-40); Albumin Level 3.3 g/dL (3.5-5.0); Alkaline Phosphatase 76 U/L (39-117); Anion Gap 12 (12-20); Aspartate Amino Transferase 19 U/L (5-37); Bilirubin Direct 0.2 mg/dL (0.0-0.5); Bilirubin Total 0.6 mg/dL (0.0-1.0); Blood Urea Nitrogen 22 mg/dL (9-16); Calcium 8.2 mg/dL (8.4-10.2); Carbon Dioxide 22 mmol/L (22-29); Chloride 108 mmol/L (96-108); Creatinine Clr Calc Pharmacy 100.3; Estimated Glomerular Filt Rate > 60; Glucose Random 99 mg/dL (60-115); Potassium 4.4 mmol/L (3.3-5.1); Sodium 138 mmol/L (135-145); Total Protein 6.6 g/dL (6.5-8.0)
--- NOTE | 2023-11-06 19:32 | PC.NURSE ---
pt bladder scanned per provider order. bladder scan displays 0ml. provider notified/aware. pt waiting to go to CT at this time.
[2023-11-06] MEDS: HYDROcodone Bit/Acetam 5/325 TABLET 1 TAB PO (20:28)
--- NOTE | 2023-11-06 23:07 | MHC.CM.ED ---
Addendum entered by Gabrielle Hewitt 11/06/23 23:24: CM will reach out to SURGICAL ASSISTANT/HCP Nubia Samayoa in the am. Original Note: Received consult from . Pt states cannot go home, because his SURGICAL ASSISTANT has been hospitalized, he has no family and cannot care for himself. His HCP/SURGICAL ASSISTANT lives upstairs in a duplex. She has 50 plus hours/week per patient. Pt is a L BKA, has suprapubic catheter and a colostomy. Pt is total care. Is wheelchair bound and has a Eunice lift at home. Pt has no family. HCP on file is is SURGICAL ASSISTANT from [facility]. Nubia Samayoa ([phone]). Pt is requesting Respite care. Pt has [employer]. Pt has been to [facility] and would like to go there. Pt is aware that respite beds are tight and that CM would refer out 25 miles. If there are no bed offers tomorrow, then CM will refer 50 miles out. Pt expresses concerns about going too far, but patient does not have any family that can help him, so CM will try to find something closer to home if possible, but he may need to go further for care. Pt acknowledges understanding. Referrals made. CM will follow for discharge planning.
--- NOTE | 2023-11-07 01:46 | PC.NURSE ---
Perineal care provided, colostomy bag emptied, barrier cream applied. Pt tolerated well.
[2023-11-07 02:16] VITALS: BP 104/52; PULSE 75; RESP 14
[2023-11-07 02:47] LABS: COVID-19 Test Negative (Negative); IDNOW Serial# 152EDE1D
--- NOTE | 2023-11-07 03:08 | PC.NURSE ---
Med req completed.
[2023-11-07 09:00] VITALS: BP 106/45; PULSE 64; RESP 14; TEMP 36.4; O2SAT 97
--- NOTE | 2023-11-07 09:23 | PC.NURSE ---
PT A/O X 4 NO SOB/CAYDEN NOTED SPEAKS IN FULL SENTENCES. PT ATE BREAKFAST. PT C/O 04/03 GROIN PAIN. PT IS A LEFT AKA. PT HAS A SUPRAPUBIC CATH WHICH IS P&D. PT HAS A COLOSTOMY BAG WHICH IS PATENT. WILL CONTINUE TO MONITOR.
--- NOTE | 2023-11-07 12:32 | MHC.CM.ED ---
Addendum entered by Beth Herrera 11/07/23 13:03: [facility] is able to offer a bed. MDS completed. Faxed to [facility] and also sent to [facility] [[email or web address] Will need MH approval letter before transferring to facility. Original Note: Patient remains in ER. [facility] is [facility]st choice. Waiting to see if they can offer a bed. Continue to monitor for d/c needs.
--- NOTE | 2023-11-07 14:55 | PHA.MEDREC ---
Pharmacy Consult ? Medication Reconciliation Pharmacy has reviewed the medication reconciliation by nursing. Patient just discharge 10/29 utilzied discahrge summary. Per discharge summary patient to restart with Eliquis on 11/01. RN added oxybutynin, we speaking to patient patient does not recognize therefore removed from list. Angela Dixon, AbenaD
[2023-11-07] MEDS: Atorvastatin Calcium 20 MG TABLET PO (15:45)
[2023-11-07] MEDS: hydrOXYzine HCL 50 MG TABLET PO (15:45)
[2023-11-07] MEDS: Acetaminophen 325 MG TABLET PO (16:48)
[2023-11-07 22:10] VITALS: BP 112/65; PULSE 69; RESP 16; TEMP 36.4; O2SAT 94
[2023-11-07] MEDS: Metoprolol Tartrate 12.5 MG HALFTAB PO (22:11)
[2023-11-07] MEDS: Furosemide 20 MG TABLET PO (22:11)
[2023-11-07] MEDS: Apixaban 5 MG TABLET PO (22:11)
--- NOTE | 2023-11-08 00:33 | PC.NURSE ---
LATE ENTRY - aasumed care of patient at 1900- pt is reting comfortably in 19H in no apparent distress, medicated with bedtime medications per mar - swallowed pills whole with water, pt offered no current complaints, needs met. Plan of care ongoing.
[2023-11-08] MEDS: Atorvastatin Calcium 20 MG TABLET PO (08:31)
[2023-11-08] MEDS: Apixaban 5 MG TABLET PO (08:31)
[2023-11-08] MEDS: Furosemide 20 MG TABLET PO (08:31)
[2023-11-08] MEDS: Metoprolol Tartrate 12.5 MG HALFTAB PO (08:31)
[2023-11-08 09:31] VITALS: BP 107/68; PULSE 79; RESP 18; TEMP 37.2; O2SAT 98
--- NOTE | 2023-11-08 12:12 | MHC.CM.ED ---
Patient remains in ER overflow. [facility] has obtained approval from [facility]. Patient can leave at 3pm. Patient, Adeline Kraft and Lesvia TURCIOS aware. Continue to monitor for d/c needs.
--- NOTE | 2023-11-08 12:37 | PC.NURSE ---
patient brought over from main ed to room 6 in overflow, patient a&ox3, suprapubic cath patient/draining, pt sitting up eating lunch independently, pt aware he is going to [facility] at 3pm.
--- NOTE | 2023-11-08 12:58 | PC.NURSE ---
report to [facility] this nurse attempted to call [facility] to give nurse to nurse report- there was no answer, voicemail was left to call [facility]. Will notify ems this when they do the discharge.
--- NOTE | 2023-11-08 13:28 | PC.NURSE ---
report given to Nova at [facility]
[2023-11-08 14:00] VITALS: BP 106/59; PULSE 65; RESP 18; TEMP 36.2; O2SAT 97
== END 2023-11-08 15:38 ==
PROVIDERS: Emergency Provider Emergency Medicine Emergency Medical Services; PCP Internal Medicine
DX: R10.9 Unspecified abdominal pain (principal); R10.2 Pelvic and perineal pain; Z11.52 Encounter for screening for COVID-19; Z79.899 Other long term (current) drug therapy; Z79.01 Long term (current) use of anticoagulants
CPT/HCPCS: 36415; 74176; 80048; 80076; 83605; 85025; 87040; 87635; 96360; 96361; 99285

== ENCOUNTER 2023-12-11 19:54 | Emergency (ER) | payer MEDICARE, MEDICAID, SELFPAY ==
[2023-12-11 20:11] VITALS: BP 105/57; BP 132/81; PULSE 72; RESP 16; TEMP 36.4; O2SAT 99; BMI 29.4
--- NOTE | 2023-12-11 21:23 | ED_ITS ---
HPI - Male Genitourinary General Chief complaint: Urogenital-Male Stated complaint: ABD PAIN,CATHETER HASN'T DRAINED SINCE 3PM Time Seen by Provider: 12/11/23 21:15 Source: patient Mode of arrival: EMS Limitations: no limitations History of Present Illness HPI Narrative: Patient comes to the emergency room complaining of a clogged suprapubic catheter. October 23, patient had placed for the 1st time. Patient states that he was supposed to have it changed at the end of October, but the appointment was never made. They, patient presenting with suprapubic discomfort. According to EMS, the staff reported that the seems 15:00 patient has not drained any urine. Related Data Home Medications Medication Instructions Recorded Confirmed apixaban 5 mg tablet (Eliquis) 1 tab PO BID 04/07/21 11/07/23 atorvastatin 20 mg tablet 1 tab PO DAILY 04/07/21 11/07/23 furosemide 20 mg tablet 1 tab PO BID 04/07/21 11/07/23 metoprolol tartrate 25 mg tablet 0.5 tab PO BID 07/02/21 11/07/23 vibegron 75 mg tablet (Gemtesa) 75 mg PO DAILY 10/19/23 11/07/23 Previous Rx's Medication Instructions Recorded cefuroxime axetil 250 mg tablet 250 mg PO BID #14 tabs 12/12/23 Allergies Allergy/AdvReac Type Severity Reaction Status Date / Time No Known Allergies Allergy Verified 09/27/23 11:34 [No Known Allergies*] Review of Systems 2 Review of Systems: Constitutional : No Weight loss, No Fever, No Chills, No Night Sweats, No Fatigue, No Malaise ENT/Mouth : No Hearing loss, No Ear Pain, No Nasal Congestion, No Sinus Pain, No Hoarseness, No sore throat, No Rhinorrhea, No Swallowing Difficulty Eyes: No Eye Pain, No Swelling, No Redness, No Foreign Body, No Discharge, No Vision Changes Cardiovascular : No Chest Pain, No SOB, No Dyspnea on Exertion, No Orthopnea, No Edema, No Palpitations Respiratory : No Cough, No Sputum, No Wheezing, No Smoke Exposure, No Dyspnea Gastrointestinal : No Nausea, No Vomiting, No Diarrhea, No Constipation, No abdominal Pain, No Hematochezia, No Melena Genitourinary : Complaining of a blocked/clogged suprapubic, No Dysuria, No Urinary Frequency, No Hematuria, No Urinary Incontinence, No Urgency, No Flank Pain, No Urinary Flow Changes, No Hesitancy Musculoskeletal : No joint pain, No Myalgias, No Joint Swelling Skin : No Skin Lesions, No rash Neuro : No Weakness, No Numbness, No Paresthesias, No Loss of Consciousness, No Dizziness, No Headache Psych : No Anxiety/Panic, No Depression, No SI/HI/AH/VH, No Social Issues, Heme/Lymph: No Bruising, No Bleeding,No Lymphadenopathy Endocrine : No Polyuria, No Polydipsia, No Temperature Intolerance [facility] Past Medical History Medical History Parastomal hernia Chronic indwelling Napier catheter Atrial fibrillation with slow ventricular response Left below-knee amputee Chronic indwelling Napier catheter Elevated cholesterol Muscle weakness Embolism Atrial fibrillation Essential hypertension Major depressive disorder COVID Surgical History S/P colostomy H/O colonoscopy Hx of cholecystectomy History of AAA (abdominal aortic aneurysm) repair Social History Social History Household Members: Other Household Members Other:: self Housing: Apartment Are you a primary home care specialist to a significant other at home: No Do you presently have visiting nurse or other home services: Yes Alcohol intake: former Comment: Refusing red fall risk wrist band. Patient Tobacco Use Status: Former Tobacco user Quit Date: age 48's Tobacco use type: Cigarette Advance Directives: Yes Advance Directives on File: Yes Advance Directives Date on File: 04/08/21 service: No Current occupational status: disabled Physical Exam 2 Vital Signs: Vital Signs: Last Vital Signs Temp 97.5 F 12/11/23 20:11 Pulse 72 12/11/23 20:11 Resp 16 12/11/23 20:11 BP 105/57 L 12/11/23 20:11 Pulse Ox 99 12/11/23 20:11 O2 Del Method Room Air 12/11/23 20:11 BMI result Body Mass Index 29.4 Const: Other: Appearance: Alert. Oriented X3. No acute distress. Eyes: Pupils equal, round and reactive to light. ENT: Pharynx normal. Neck: Normal inspection. Neck supple. No lymph nodes noted. No crepitus CVS: Normal heart rate and rhythm. Pulses normal. Normal S1 and S2 Respiratory: No respiratory distress. Breath sounds normal. No Wheezing. No rales Abdomen: Soft , colostomy bag in place, suprapubic catheter has no urine in it, stitched up to the skin. Skin: Skin warm and dry. Normal skin color. Normal skin turgor. Extremities: No lower extremity edema. No Lacerations. No Rash Neuro: Oriented X 3. No motor deficit. No sensory deficit. Moving all extremities. No slurred speech. CN 2 through 12 grossly intact Psych: calm, cooperative, normal affect Course Course Course Narrative: -bladder scan and urinalysis pending Medications Administered Discontinued Medications Generic Name Dose Route Start Last Admin Trade Name Freq PRN Reason Stop Dose Admin Tramadol HCl 50 mg 12/11/23 23:15 12/11/23 23:29 Tramadol Hcl 50 Mg Tablet PO 12/11/23 23:16 50 mg ONCE ONE Administration Medical Decision Making Medical Decision Making [facility] Narrative: -my interpretation of labs: Hematology and chemistry are baseline. Patient does have a urinary tract infection. Patient was given IV ceftriaxone. Oral oxycodone, IV morphine for pain. -I discussed the patient with martinez Crowley to replace the Napier catheter. It has almost been 7 weeks since patient had the surgery -the Napier catheter was replaced. Draining appropriately. Differential Diagnosis Differential Diagnoses: The differential diagnosis associated with the presentation includes (UTI, malfunctioning Napier catheter) Lab Data 12/11/23 22:20 12/11/23 23:02 Labs: Lab Results 12/11/23 12/11/23 Range/Units 22:20 23:02 WBC 6.4 (4.8-10.8) X10*3/uL RBC 4.26 L (4.60-5.80) X10*6/uL Hgb 13.0 L (14.0-18.0) g/dl Hct 37.7 L (42.0-52.0) % MCV 88.5 (80.0-98.0) fL MCH 30.5 (27.0-33.0) pg MCHC 34.5 (31.0-36.0) g/dl RDW 14.6 (11.0-16.0) % Plt Count 227 (160-400) X10*3/uL MPV 10.3 (9.4-12.4) fL Immature Gran % (Auto) 0.2 (0.0-0.4) % Neut % (Auto) 57.9 (45-73) % Lymph % (Auto) 30.1 (20-40) % Posey % (Auto) 8.2 (2-11) % Eos % (Auto) 2.8 (0-4) % Baso % (Auto) 0.8 (0-2) % Lymph # (Auto) 1.9 (1.2-4.9) X10*3/uL [place]y # (Auto) 0.5 (0.1-1.2) X10*3/uL Eos # (Auto) 0.2 (0.0-0.4) X10*3/uL Baso # (Auto) 0.1 (0.0-0.2) X10*3/uL Abs Immat Gran (auto) 0.01 (0.00-0.03) X10*3/uL Absolute Neuts (auto) 3.7 (2.0-8.3) x10*3/uL Absolute Nucleated RBC 0.000 (0.0-0.012) X10*3/uL Nucleated RBC % (auto) 0.0 (0.0-0.2) /100WBC Sodium 137 (135-145) mmol/L Potassium 3.6 (3.3-5.1) mmol/L Chloride 107 (96-108) mmol/L Carbon Dioxide 22 (22-29) mmol/L Anion Gap 12 (12-20) BUN 24 H (9-16) mg/dL Creatinine 0.64 (0.5-1.4) mg/dL Estim Creat Clear Calc 108.4 Estimated GFR > 60 Random Glucose 94 (60-115) mg/dL Calcium 8.6 (8.4-10.2) mg/dL Total Bilirubin 0.4 (0.0-1.0) mg/dL Direct Bilirubin 0.2 (0.0-0.5) mg/dL AST 17 (5-37) U/L ALT 20 (0-40) U/L Alkaline Phosphatase 104 (39-117) U/L Total Protein 6.5 (6.5-8.0) g/dL Albumin 3.4 L (3.5-5.0) g/dL Urine Color Yellow Urine Appearance Turbid Urine pH >= 9.0 (5.0-9.0) Ur Specific [place] 1.020 (1.005-1.025) Urine Protein 30 (1+) H (Neg-Trace) mg/dL Urine Glucose (UA) Negative (Negative) mg/dL Urine Ketones Negative (Negative) mg/dL Urine Blood Negative (Negative) Urine Nitrite Positive H (Negative) Ur Leukocyte Esterase Moderate (2+) H (Negative) Urine RBC 0-2 (0-2) /HPF Urine WBC 6-10 (0-5) /HPF Ur Squamous Epith Cells 0-2 (0-2) /HPF Other Crystals Present Urine Bacteria 3+ (None Seen) Hyaline Casts 0-2 (0-2) /LPF Discharge Plan Discharge Clinical Impression: UTI (urinary tract infection) due to urinary indwelling Napier catheter, Napier catheter in place Patient Disposition: Home, Self-Care Instructions: Urinary Tract Infection in Men (ED), Napier Catheter Placement and Care (ED) Additional Instructions: Is keep your appointment with your urologist. Please follow-up with your primary care physician tomorrow. If you have any worsening or new symptoms, please return to the emergency room or call 911 Prescriptions: New cefuroxime axetil 250 mg tablet 250 mg PO BID Qty: 14 0RF No Action atorvastatin 20 mg tablet 1 tab PO DAILY furosemide 20 mg tablet 1 tab PO BID Eliquis 5 mg tablet 1 tab PO BID Hold Instructions: Resume on 11/01/23. metoprolol tartrate 25 mg tablet 0.5 tab PO BID Gemtesa 75 mg tablet 75 mg PO DAILY Referrals: Dhruv Thurston MD [Physician] - 12/14/23
[2023-12-11 22:30] LABS: MANUAL DIFF FLAG NO
[2023-12-11 22:32] LABS: Basophils Absolute Auto 0.1 X10*3/uL (0.0-0.2); Basophils Percent Auto 0.8 % (0-2); Eosinophils Absolute Auto 0.2 X10*3/uL (0.0-0.4); Eosinophils Percent Auto 2.8 % (0-4); Hematocrit 37.7 % (42.0-52.0); Imm Gran Abs Auto 0.01 X10*3/uL (0.00-0.03); Imm Gran Pct Auto 0.2 % (0.0-0.4); Lymphocytes Absolute Auto 1.9 X10*3/uL (1.2-4.9); Lymphocytes Percent Auto 30.1 % (20-40); Mean Corpuscular HGB Conc 34.5 g/dl (31.0-36.0); Mean Corpuscular Hemoglobin 30.5 pg (27.0-33.0); Mean Corpuscular Volume 88.5 fL (80.0-98.0); Mean Platelet Volume 10.3 fL (9.4-12.4); Monocytes Absolute Auto 0.5 X10*3/uL (0.1-1.2); Monocytes Percent Auto 8.2 % (2-11); Neutrophils Absolute Auto 3.7 x10*3/uL (2.0-8.3); Neutrophils Percent Auto 57.9 % (45-73); Platelet Count 227 X10*3/uL (160-400); Red Blood Count 4.26 X10*6/uL (4.60-5.80); Red Cell Distribution Width 14.6 % (11.0-16.0); White Blood Count 6.4 X10*3/uL (4.8-10.8)
[2023-12-11 23:12] LABS: Appearance Urine Turbid; Color Urine Yellow; Glucose Urine UA Negative (Negative); Leukocyte Esterase Urine Moderate (2+) (Negative); Nitrite Urine Positive (Negative); PH >= 9.0 (5.0-9.0); UMIC TRIGGER UACC YES; Urine Blood Negative (Negative); Urine Ketones Negative (Negative); Urine Protein 30 (1+) mg/dL (Neg-Trace)
[2023-12-11 23:15] LABS: Bacteria Urine 3+ (None Seen); Hyaline Casts Urine 0-2 /LPF (0-2); Other Crystals Urine Present; RBC Urine 0-2 /HPF (0-2); Squamous Epithelial Cell Urine 0-2 /HPF (0-2); UACC Culture Trigger YES
[2023-12-11 23:24] LABS: Alanine Aminotransferase 20 U/L (0-40); Albumin Level 3.4 g/dL (3.5-5.0); Alkaline Phosphatase 104 U/L (39-117); Anion Gap 12 (12-20); Aspartate Amino Transferase 17 U/L (5-37); Bilirubin Direct 0.2 mg/dL (0.0-0.5); Bilirubin Total 0.4 mg/dL (0.0-1.0); Blood Urea Nitrogen 24 mg/dL (9-16); Calcium 8.6 mg/dL (8.4-10.2); Carbon Dioxide 22 mmol/L (22-29); Chloride 107 mmol/L (96-108); Creatinine Clr Calc Pharmacy 108.4; Estimated Glomerular Filt Rate > 60; Glucose Random 94 mg/dL (60-115); Potassium 3.6 mmol/L (3.3-5.1); Sodium 137 mmol/L (135-145); Total Protein 6.5 g/dL (6.5-8.0)
[2023-12-11] MEDS: traMADoL HCL 50 MG TABLET PO (23:29)
[2023-12-12] VITALS: RESP 18
[2023-12-12] MEDS: Morphine Sulfate 2 MG/ML CARTRIDGE IVPUSH (01:10)
[2023-12-12] MEDS: cefTRIAXone sodium 1 GM in 0.9 % Sodium Chloride 50 ML IV (01:35)
--- NOTE | 2023-12-12 01:39 | PC.NURSE ---
Report given to Cassius GEE at [facility]
[2023-12-12 01:46] VITALS: BP 109/74; PULSE 80; RESP 16; TEMP 36.7; O2SAT 98
--- NOTE | 2023-12-12 01:47 | MHC.EDTECH ---
CALL OUT TO [facility] AT 0147 TO BOOK TRANSPORT FOR PT BACK TO SNF, ESTIMATED ETA GIVEN WAS WITHIN THE HOUR
[2023-12-12 03:48] VITALS: BP 109/74; PULSE 80; RESP 16; TEMP 36.7; O2SAT 98
== END 2023-12-12 03:48 | disposition home or self-care (01) ==
PROVIDERS: Emergency Provider Emergency Medicine
DX: T83.510A Infection and inflammatory reaction due to cystostomy catheter, initial encounter (principal); N39.0 Urinary tract infection, site not specified; B96.4 Proteus (mirabilis) (morganii) as the cause of diseases classified elsewhere; B95.2 Enterococcus as the cause of diseases classified elsewhere; I10 Essential (primary) hypertension; Y84.6 Urinary catheterization as the cause of abnormal reaction of the patient, or of later complication, without mention of misadventure at the time of the procedure; Y92.9 Unspecified place or not applicable
CPT/HCPCS: 36415; 51705; 80048; 80076; 81001; 81003; 85025; 87086; 87088; 87186; 96365; 96375; 99285; J0696; J2270

== ENCOUNTER 2023-12-14 11:28 | Outpatient (AMB) | payer MEDICARE, MEDICAID, SELFPAY ==
--- NOTE | 2023-12-14 11:31 | A.OFFVIS_ITS ---
Intake Intake Visit Reasons: Post-op/ ER follow up Intake Note: Patient presents today for a follow-up on Post op/ER follow up Meds- Gemtesa Allergies to Antibiotic- No Known Allergies Blood Thinner- Eliquis Patient has an Suprapubic tube in place. Patient in stretcher. Die Try Out Worker Required: No Accompanied by: EMT's Allergies No Known Allergies [No Known Allergies*] Allergy (Verified 12/14/23 11:38) HPI HPI Comments History of Present Illness Details Maninder is a male. He is a patient of . He seen the following urologic conditions - neurogenic bladder - chronic leak - chronic infection Currently with suprapubic tube At rehab Had presented at emergency room for bleeding Urine today looks clear Will have VNA or rehab nursing change Napier catheter every 3 weeks for 18 [place]ic Should stay on chemo suppression with methenamine and vitamin-C Follow in 6 weeks Neurogenic bladder: Complicated by iatrogenic hypospadias from long-term Napier catheter Suprapubic tube placement 10/18 Open bladder neck Small bladder - denies prior sphincterotomy or prostate procedure\ 04/14/2023-- He state that he is on Eliquis. He states that he has discontinued taking Eliquis during his surgeries. He has a chronic Napier since 2010 for neurogenic bladder. He reports chronic urinary leakage around the Napier catheter. He states that the visiting nurse will change the catheter for every 3 weeks. He states that they have difficulty getting the Napier catheter all the way into the bladder. He reports that occasionally, he needs to go to ER to replace the catheter.? He is taking Oxybutynin 10mg at bed time. PSA results reviewed ? 03/30/2023?0.6 ng/mL. Colostomy 2020 [facility] Medical History Parastomal hernia Chronic indwelling Napier catheter Atrial fibrillation with slow ventricular response Left below-knee amputee Chronic indwelling Napier catheter Elevated cholesterol Muscle weakness Embolism Atrial fibrillation Essential hypertension Major depressive disorder COVID Surgical History S/P colostomy H/O colonoscopy Hx of cholecystectomy History of AAA (abdominal aortic aneurysm) repair Social History Household Members: Other Household Members Other:: self Housing: Apartment Are you a primary manager medicare to a significant other at home: No Do you presently have visiting nurse or other home services: Yes Alcohol intake: former Comment: Refusing red fall risk wrist band. Patient Tobacco Use Status: Former Tobacco user Quit Date: age 48's Tobacco use type: Cigarette Advance Directives Date on File: 04/08/21 service: No Current occupational status: disabled Review of Systems Const Denies chills and Denies fever(s) Card Reports no additional complaints and Denies syncope Resp Denies cough GI Denies abdominal pain and Denies heartburn Reports as per HPI and Denies change in libido Neuro Denies syncope Psych Denies change in libido Endo Denies change in libido Physical Exam Const General: cooperative, healthy appearing, comfortable and no acute distress Orientation/consciousness: patient oriented x3 HEENT Face and sinus: Yes normal facial exam Mouth: moist mucous membranes Neck Neck: Yes normal visual inspection, Yes full ROM and Yes trachea midline Chest Chest palpation & inspection: normal inspection of the chest Resp Effort & Inspection: normal respiratory effort, able to speak in complete sentences and no respiratory distress GI Inspection: Yes normal to inspection Back/Spine/Pelvis Cervical Spine: normal cervical lordosis Thoracic/Lumbar Spine: thoracic and lumbar spine normal to inspection Skin General skin exam: no rashes or lesions noted Neuro General: patient oriented x3, gait normal, tone normal and moves all extremities Extrem General: Yes normal to inspection and Yes capillary refill normal Assessment & Plan Assessment & Plan (1) UTI (urinary tract infection) due to urinary indwelling Napier catheter: Code(s): T83.511A - Infection and inflammatory reaction due to indwelling urethral catheter, initial encounter; N39.0 - Urinary tract infection, site not specified (2) Hypospadias: Code(s): Q54.9 - Hypospadias, unspecified Qualifiers: Hypospadias type: penile Qualified Code(s): Q54.1 - Hypospadias, penile (3) Neurogenic bladder: Code(s): N31.9 - Neuromuscular dysfunction of bladder, unspecified Plan Six-month follow-up Medications: New ascorbic acid (vitamin C) 1 g PO DAILY 90 tabs 1RF 90 days N31.9 - Neuromuscular dysfunction of bladder, unspecified, N39.0 - Urinary tract infection, site not specified methenamine hippurate 1 g PO DAILY 90 tabs 1RF 90 days N31.9 - Neuromuscular dysfunction of bladder, unspecified, N39.0 - Urinary tract infection, site not specified, N40.1 - Benign prostatic hyperplasia with lower urinary tract symptoms, R33.9 - Retention of urine, unspecified Patient Instructions: Imaging studies, laboratory and physical exam results were discussed and reviewed in detail. No major barriers to patient understanding were identified. An opportunity to ask questions regarding the treatment plan was provided. All questions were answered. The patient expressed understanding and agreement with the above treatment plan. The patient is aware they should contact our office by phone for worsening of their current condition or the appearance of new urologic symptoms. Compliance is encouraged with any medications and followup testing that is ordered. It is a privilege to participate in the urologic care of your patient. If you have any questions or concerns regarding treatment for the above conditions, or other urologic issues, please do not hesitate to contact me. The office telephone contact is [phone]. This note is constructed using voice recognition software. While every effort has been made to ensure accuracy reeling machine operator errors may have been included. Yours sincerely, Dr Dhruv Thurston MD, [facility] - Urology Providers of Expert, Compassionate Care for the Genitourinary System Coding Level of Care Code Est Pt Level 4 (16275) Diagnoses UTI (urinary tract infection) due to urinary indwelling Napier catheter T83.511A; N39.0 Penile hypospadias Q54.1 Hypospadias type: penile Neurogenic bladder N31.9
== END 2023-12-14 12:09 | disposition home or self-care (01) ==
LOC: HO.HUSH 11:28
PROVIDERS: PCP Internal Medicine; Visit Provider Urology
DX: T83.511A Infection and inflammatory reaction due to indwelling urethral catheter, initial encounter (principal); N39.0 Urinary tract infection, site not specified; Q54.1 Hypospadias, penile; N31.9 Neuromuscular dysfunction of bladder, unspecified
CPT/HCPCS: 99213

== ENCOUNTER → 2023-12-14 11:28 | Outpatient (BNVA) | payer MEDICARE, MEDICAID, SELFPAY | PROVIDERS: PCP Internal Medicine; Visit Provider Urology | DX: N31.9 Neuromuscular dysfunction of bladder, unspecified (principal); T83.511A Infection and inflammatory reaction due to indwelling urethral catheter, initial encounter; N40.1 Benign prostatic hyperplasia with lower urinary tract symptoms; R33.8 Other retention of urine; Q54.1 Hypospadias, penile; N39.0 Urinary tract infection, site not specified | CPT/HCPCS: 99212 ==

== ENCOUNTER → 2024-01-10 09:59 | Outpatient (BNV) | payer MEDICARE, MEDICAID, SELFPAY | PROVIDERS: Emergency Provider Emergency Medicine; Visit Provider Urology | DX: T83.9XXA Unspecified complication of genitourinary prosthetic device, implant and graft, initial encounter (principal) | CPT/HCPCS: 51705; 99282 ==

== ENCOUNTER 2024-01-10 10:11 | Emergency (ER) | payer MEDICARE, MEDICAID, SELFPAY ==
--- NOTE | 2024-01-10 10:19 | ED_ITS ---
HPI - General Adult General Chief complaint: Urogenital-Male Stated complaint: STUCK CATHETER ,UNABLE TO CHANGE PER EMS Time Seen by Provider: 01/10/24 10:14 Source: patient and EMS Mode of arrival: EMS Limitations: other (poor historian ) History of Present Illness HPI narrative: 68 yo M hx or afib, reccureent UTIS ( w/ suprapubic cath in place), diverticulitis neurogenic pladder , presenting w/ complaints of a clogged suprapubic catheter. October 23, patient had placed for the 1st time. Patient states that he was supposed to have it changed a few weeks ago and follow up with urology, but the appointment was never made. Last changed on 12/11/2023 They, patient presenting with suprapubic discomfort. Reports its not working correctly. PER REQUEST OF UROLOGY DR. THURSTON ED SHOULD NOT ATTEMPT TO REMOVE SUPRAPUBIC CATHERER VERY DIFFICULT ON THIS PATIENT AND HE WOULD RATHER UROLOGY BE CONSULTED. Related Data Home Medications ?Medication ?Instructions ?Recorded ?Confirmed apixaban 5 mg tablet (Eliquis) 1 tab PO BID 04/07/21 11/07/23 atorvastatin 20 mg tablet 1 tab PO DAILY 04/07/21 11/07/23 furosemide 20 mg tablet 1 tab PO BID 04/07/21 11/07/23 metoprolol tartrate 25 mg tablet 0.5 tab PO BID 07/02/21 11/07/23 vibegron 75 mg tablet (Gemtesa) 75 mg PO DAILY 10/19/23 11/07/23 bisacodyl 10 mg rectal suppository 10 mg ND DAILY PRN 12/14/23 (Dulcolax (bisacodyl)) culture oral capsules PO BID 12/14/23 fluoxetine 40 mg capsule 40 mg PO DAILY 12/14/23 Previous Rx's ?Medication ?Instructions ?Recorded cefuroxime axetil 250 mg tablet 250 mg PO BID #14 tabs 12/12/23 ascorbic acid (vitamin C) 1,000 mg 1 g PO DAILY 90 days #90 tabs 12/14/23 tablet methenamine hippurate 1 gram tablet 1 g PO DAILY 90 days #90 tabs 12/14/23 cefuroxime axetil 250 mg tablet 250 mg PO BID 7 days #14 tabs 01/10/24 nitrofurantoin 100 mg PO BID 7 days #14 caps 01/10/24 monohydrate/macrocrystals 100 mg capsule (Macrobid) Allergies Allergy/AdvReac Type Severity Reaction Status Date / Time No Known Allergies Allergy Verified 01/10/24 10:33 [No Known Allergies*] Review of Systems 2 Review of Systems: Yes all other systems are reviewed and are negative PMFSH Past Medical History Attestation statement: The following information was validated with the patient. Source: old records reviewed and nursing notes reviewed Medical History Parastomal hernia Chronic indwelling Napier catheter Atrial fibrillation with slow ventricular response Left below-knee amputee Chronic indwelling Napier catheter Elevated cholesterol Muscle weakness Embolism Atrial fibrillation Essential hypertension Major depressive disorder COVID Surgical History S/P colostomy H/O colonoscopy Hx of cholecystectomy History of AAA (abdominal aortic aneurysm) repair Social History Social History Household Members: Other Household Members Other:: self Housing: Apartment Are you a primary farm or ranch animal caretaker to a significant other at home: No Do you presently have visiting nurse or other home services: Yes Alcohol intake: former Comment: Refusing red fall risk wrist band. Patient Tobacco Use Status: Former Tobacco user Quit Date: age 48's Tobacco use type: Cigarette Smoked in Last 30 Days: No Use of substances other than those prescribed or required for medical reasons: No Advance Directives: Yes Advance Directives on File: Yes Advance Directives Date on File: 04/08/21 service: No Current occupational status: disabled Physical Exam ED Vital Signs: Vital Signs - 24 hr 01/10/24 10:32 Temperature 97.9 F Pulse Rate 70 Respiratory Rate 18 Blood Pressure 96/60 Pulse Oximetry 98 Oxygen Delivery Method Room Air BMI result Body Mass Index 92.2 Course Reevaluation(s) Reevaluation #1: CBC unremarkable. Chemistry pending. UA pending. Dr. Thurston urology replaced suprapubic catheter no complications. Patient tolerated procedure well. Although patient states he hasn't seen urology patient does hvae a note from 12/14/[address] Thurston. Time: 10:59 Reevaluation #2: UA concerning for infection. Will send Ceftin as well as Macrobid based off of culture and sensitivity from last time. Will have patient follow-up with urology. Time: 11:04 Reevaluation #3: Patient's chemistry with low sodium 133 educated on p.o. hydration. No other acute electrolyte abnormalities requiring intervention. Slightly elevated BUN again likely secondary to dehydration. Patient in pain --> tylenol ordered Educated patient on diagnosis and treatment plan, answered all question, patient verbalizes understanding. At this time patient will be discharged home, advised to return with new or worsening symptoms. Educated on worrisome signs and symptoms and when to return. At this time I feel comfortable discharge home. Time: 11:26 Medications Administered Discontinued Medications Generic Name Dose Route Start Last Admin Trade Name Trinidad PRN Reason Stop Dose Admin Lidocaine HCl 10 ml 01/10/24 10:15 01/10/24 11:04 Lidocaine Hcl 2 % Urojet 10 Ml Jel.Pf.Windy TOPICAL 01/10/24 10:16 Not Given ONCE ONE Medical Decision Making Medical Decision Making MDM Narrative: 1024 68-year-old male presents with a stuck indwelling suprapubic catheter has not been changed since 12/11/2023. Foul smelling urine. Physical exam History and physical exam concerning for UTI with a poorly maintained suprapubic catheter. No signs of cellulitis, necrosis. [facility] metabolic derangments Plan at this time will reach out to urology obtain basic labs and urine. Differential Diagnosis Differential Diagnoses: The differential diagnosis associated with the presentation includes History and physical exam concerning for UTI with a poorly maintained suprapubic catheter. No signs of cellulitis, necrosis. [facility] metabolic derangments Admission/Observation Consideration of admission/observation: Escalation of care including admission/observation considered Lab Data 01/10/24 10:48 01/10/24 10:48 Labs: Lab Results 01/10/24 01/10/24 Range/Units 10:37 10:48 WBC 6.2 (4.8-10.8) X10*3/uL RBC 4.29 L (4.60-5.80) X10*6/uL Hgb 12.9 L (14.0-18.0) g/dl Hct 38.6 L (42.0-52.0) % MCV 90.0 (80.0-98.0) fL MCH 30.1 (27.0-33.0) pg MCHC 33.4 (31.0-36.0) g/dl RDW 14.9 (11.0-16.0) % Plt Count 197 (160-400) X10*3/uL MPV 9.9 (9.4-12.4) fL Immature Gran % (Auto) 0.3 (0.0-0.4) % Neut % (Auto) 65.7 (45-73) % Lymph % (Auto) 19.1 L (20-40) % [place] % (Auto) 11.7 H (2-11) % Eos % (Auto) 2.6 (0-4) % Baso % (Auto) 0.6 (0-2) % Lymph # (Auto) 1.2 (1.2-4.9) X10*3/uL [place] # (Auto) 0.7 (0.1-1.2) X10*3/uL Eos # (Auto) 0.2 (0.0-0.4) X10*3/uL Baso # (Auto) 0.0 (0.0-0.2) X10*3/uL Abs Immat Gran (auto) 0.02 (0.00-0.03) X10*3/uL Absolute Neuts (auto) 4.1 (2.0-8.3) x10*3/uL Absolute Nucleated RBC 0.000 (0.0-0.012) X10*3/uL Nucleated RBC % (auto) 0.0 (0.0-0.2) /100WBC Sodium 133 L (135-145) mmol/L Potassium 4.3 (3.3-5.1) mmol/L Chloride 105 (96-108) mmol/L Carbon Dioxide 22 (22-29) mmol/L Anion Gap 10 L (12-20) BUN 20 H (9-16) mg/dL Creatinine 0.62 (0.5-1.4) mg/dL Estim Creat Clear Calc 43.4 Estimated GFR > 60 Random Glucose 91 (60-115) mg/dL Calcium 8.3 L (8.4-10.2) mg/dL Total Bilirubin 0.6 (0.0-1.0) mg/dL AST 20 (5-37) U/L ALT 15 (0-40) U/L Alkaline Phosphatase 89 (39-117) U/L Total Protein 6.7 (6.5-8.0) g/dL Albumin 3.2 L (3.5-5.0) g/dL Urine Color Yellow Urine Appearance Turbid Urine pH 7.0 (5.0-9.0) Ur Specific [place] 1.020 (1.005-1.025) Urine Protein 30 (1+) H (Neg-Trace) mg/dL Urine Glucose (UA) Negative (Negative) mg/dL Urine Ketones Negative (Negative) mg/dL Urine Blood Large (3+) H (Negative) Urine Nitrite Negative (Negative) Ur Leukocyte Esterase Moderate (2+) H (Negative) Critical Care Time Critical Care Time Critical Care Time: Yes Total Critical Care Time: 45 Attestation: I attest to this time spent taking care of the patient, obtaining history, physical, reviewing labs, imaging, speaking to my attending, specialist or hospitalist. Discharge Plan Discharge Clinical Impression: Difficult Napier catheter placement, Acute UTI Patient Disposition: Home, Self-Care Instructions: Urinary Tract Infection in Men (ED) Additional Instructions: Take your medications as prescribed. If you were prescribed antibiotics today, it is important that you take your medication to their entirety, do not skip any doses, do not finish them early. Follow-up with your primary care provider this week. Return to the emergency department with new or worsening symptoms. Such as fevers, chills, chest pain, shortness of breath, nausea, vomiting, dizziness, headache, vision changes, lethargy In case of emergency call 911 Follow up with urology in a week information below. You can not continue to wait this long and not see a specialist. Infections in the urine can become complicated. Please have prompt follow up with specialist and PCP Prescriptions: New cefuroxime axetil 250 mg tablet 250 mg PO BID 7 Days Qty: 14 0RF nitrofurantoin monohyd/m-cryst [Macrobid] 100 mg capsule 100 mg PO BID 7 Days Qty: 14 0RF Rx Instructions: must administer with a meal/food No Action atorvastatin 20 mg tablet 1 tab PO DAILY furosemide 20 mg tablet 1 tab PO BID Eliquis 5 mg tablet 1 tab PO BID Hold Instructions: Resume on 02/07/24. metoprolol tartrate 25 mg tablet 0.5 tab PO BID cefuroxime axetil 250 mg tablet 250 mg PO BID Qty: 14 0RF Gemtesa 75 mg tablet 75 mg PO DAILY fluoxetine 40 mg capsule 40 mg PO DAILY culture oral capsules PO BID bisacodyl [Dulcolax (bisacodyl)] 10 mg suppository 10 mg ND DAILY PRN ascorbic acid (vitamin C) 1,000 mg tablet 1 g PO DAILY 90 Days Qty: 90 1RF methenamine hippurate 1 gram tablet 1 g PO DAILY 90 Days Qty: 90 1RF Referrals: [facility] [Provider Group] - 2 days Print Language: Colombian
[2024-01-10 10:32] VITALS: BP 128/68; BP 96/60; PULSE 70; PULSE 74; RESP 18; TEMP 36.6; O2SAT 97; O2SAT 98; BMI 92.2
[2024-01-10 10:52] LABS: MANUAL DIFF FLAG NO
[2024-01-10 10:54] LABS: Basophils Percent Auto 0.6 % (0-2); Eosinophils Absolute Auto 0.2 X10*3/uL (0.0-0.4); Eosinophils Percent Auto 2.6 % (0-4); Hematocrit 38.6 % (42.0-52.0); Hemoglobin 12.9 g/dl (14.0-18.0); Imm Gran Abs Auto 0.02 X10*3/uL (0.00-0.03); Imm Gran Pct Auto 0.3 % (0.0-0.4); Lymphocytes Absolute Auto 1.2 X10*3/uL (1.2-4.9); Lymphocytes Percent Auto 19.1 % (20-40); Mean Corpuscular HGB Conc 33.4 g/dl (31.0-36.0); Mean Corpuscular Hemoglobin 30.1 pg (27.0-33.0); Mean Platelet Volume 9.9 fL (9.4-12.4); Monocytes Absolute Auto 0.7 X10*3/uL (0.1-1.2); Monocytes Percent Auto 11.7 % (2-11); Neutrophils Absolute Auto 4.1 x10*3/uL (2.0-8.3); Neutrophils Percent Auto 65.7 % (45-73); Platelet Count 197 X10*3/uL (160-400); Red Blood Count 4.29 X10*6/uL (4.60-5.80); Red Cell Distribution Width 14.9 % (11.0-16.0); White Blood Count 6.2 X10*3/uL (4.8-10.8)
[2024-01-10 10:57] LABS: Appearance Urine Turbid; Color Urine Yellow; Glucose Urine UA Negative (Negative); Leukocyte Esterase Urine Moderate (2+) (Negative); Nitrite Urine Negative (Negative); UMIC TRIGGER UACC YES; Urine Blood Large (3+) (Negative); Urine Ketones Negative (Negative); Urine Protein 30 (1+) mg/dL (Neg-Trace)
--- NOTE | 2024-01-10 11:00 | PC.NURSE ---
nbole from [facility] d/t clogged suprapubic catheter. pt was supposed to have catheter changed 2 weeks ago but did not have it changed. RN at [facility] this am was unable to change d/t catheter being clogged. deflated full amount of balloon but still felt resistance when removing. after speaking w/ urology - urology advised pt to come to ED. 20gIV placed in the left forearm - labs obtained/sent to lab. urine sample obtained from catheter and sent to lab. dr. young bedside changing suprapubic catheter. new 18fr suprapubic catheter placed. patent/intact. urine draining into bag. pt c/o 05/04 pain at the site - requesting medication. provider notified/aware. no sob/wob noted. respirations even and unlabored. plan is to d/c pt back to facility. plan of care ongoing. call mejias placed within reach.
--- NOTE | 2024-01-10 11:03 | P.CNUR_ITS ---
History of Present Illness Consult details Consult date: 01/10/24 Narrative: CC: Difficult Napier exchange 68 -year-old male Bilateral above-knee amputation Suprapubic tube dependent Unable to change suprapubic tube at nursing facility Transferred to emergency room Urology requested to change catheter Review of Systems 2 Constitutional: Constitutional: Reports as per HPI and Reports no additional constitutional complaints Cardiovascular: Cardiovascular: Reports as per HPI and Reports no additional cardiovascular complaints Respiratory: Respiratory: Reports as per HPI and Reports no additional respiratory complaints Gastrointestinal: Gastrointestinal: Reports as per HPI and Reports no additional gastrointestinal complaints Genitourinary: Genitourinary: Reports as per HPI Musculoskeletal: Musculoskeletal: Reports no additional musculoskeletal complaints and Reports as per HPI Neurologic: Reports system reviewed and no additional complaints, except as documented and Reports as per HPI [facility] Past Medical History Medical History Parastomal hernia Chronic indwelling Napier catheter Atrial fibrillation with slow ventricular response Left below-knee amputee Chronic indwelling Napier catheter Elevated cholesterol Muscle weakness Embolism Atrial fibrillation Essential hypertension Major depressive disorder COVID Surgical History Surgical History S/P colostomy H/O colonoscopy Hx of cholecystectomy History of AAA (abdominal aortic aneurysm) repair Social History Social History Household Members: Other Household Members Other:: self Housing: Apartment Are you a primary home care associate to a significant other at home: No Do you presently have visiting nurse or other home services: Yes Alcohol intake: former Comment: Refusing red fall risk wrist band. Patient Tobacco Use Status: Former Tobacco user Quit Date: age 48's Tobacco use type: Cigarette Smoked in Last 30 Days: No Use of substances other than those prescribed or required for medical reasons: No Advance Directives Date on File: 04/08/21 service: No Current occupational status: disabled Meds Allergies Allergy/AdvReac Type Severity Reaction Status Date / Time No Known Allergies Allergy Verified 01/10/24 10:33 [No Known Allergies*] Home Medications ?Medication ?Instructions ?Recorded ?Confirmed ?Last Taken ?Type apixaban 5 mg tablet (Eliquis) 1 tab PO BID 04/07/21 11/07/23 2 Days Ago History ~10/22/23 atorvastatin 20 mg tablet 1 tab PO DAILY 04/07/21 11/07/23 2 Days Ago History ~10/22/23 furosemide 20 mg tablet 1 tab PO BID 04/07/21 11/07/23 2 Days Ago History ~10/22/23 metoprolol tartrate 25 mg tablet 0.5 tab PO BID 07/02/21 11/07/23 10/23/23 History vibegron 75 mg tablet (Gemtesa) 75 mg PO DAILY 10/19/23 11/07/23 2 Days Ago History ~10/22/23 bisacodyl 10 mg rectal suppository 10 mg [place] DAILY PRN 12/14/23 Unknown History (Dulcolax (bisacodyl)) culture oral capsules PO BID 12/14/23 Unknown History fluoxetine 40 mg capsule 40 mg PO DAILY 12/14/23 Unknown History Physical Exam 2 Vital Signs: Vital Signs: Last Vital Signs Temp 97.9 F 01/10/24 10:32 Pulse 70 01/10/24 10:32 Resp 18 01/10/24 10:32 BP 96/60 01/10/24 10:32 Pulse Ox 98 01/10/24 10:32 O2 Del Method Room Air 01/10/24 10:32 BMI result Body Mass Index 92.2 Const: General: cooperative, healthy appearing, comfortable and no acute distress Orientation/consciousness: patient oriented x3 HEENT: Face and sinus: Yes normal facial exam Mouth: moist mucous membranes Neck: Neck: Yes normal visual inspection, Yes full ROM and Yes trachea midline Chest: Chest palpation & inspection: normal inspection of the chest Resp: Effort & Inspection: normal respiratory effort, able to speak in complete sentences and no respiratory distress GI: Inspection: Yes normal to inspection Back/Spine/Pelvis: Cervical Spine: normal cervical lordosis Thoracic/Lumbar Spine: thoracic and lumbar spine normal to inspection Skin: General skin exam: no rashes or lesions noted Neuro: General: patient oriented x3, tone normal and moves all extremities Extrem: General: Yes normal to inspection and Yes capillary refill normal Results Labs 01/10/24 10:48 01/10/24 10:48 Labs: Abnormal lab results 01/10/24 01/10/24 Range/Units 10:37 10:48 RBC 4.29 L (4.60-5.80) X10*6/uL Hgb 12.9 L (14.0-18.0) g/dl Hct 38.6 L (42.0-52.0) % Lymph % (Auto) 19.1 L (20-40) % [place] % (Auto) 11.7 H (2-11) % Urine Protein 30 (1+) H (Neg-Trace) mg/dL Urine Blood Large (3+) H (Negative) Ur Leukocyte Esterase Moderate (2+) H (Negative) Short CBC 01/10/24 Range/Units 10:48 WBC 6.2 (4.8-10.8) X10*3/uL Hgb 12.9 L (14.0-18.0) g/dl Hct 38.6 L (42.0-52.0) % Plt Count 197 (160-400) X10*3/uL Urine 01/10/24 Range/Units 10:37 Urine Color Yellow Urine Appearance Turbid Urine pH 7.0 (5.0-9.0) Ur Specific [place] 1.020 (1.005-1.025) Urine Protein 30 (1+) H (Neg-Trace) mg/dL Urine Glucose (UA) Negative (Negative) mg/dL All other labs normal. Assessment and Plan (1) Difficult Napier catheter placement: Status: Acute Plan Catheter exchange in emergency room Three-week follow-up office for catheter exchange Procedures Date of Service Date of Service: 01/10/24 Procedure Note Procedure Note: Clean technique Indwelling 16 Syrian Napier catheter. Valve cut to deflate balloon. Catheter removed Chlorhexidine swab used to prep stoma Sixteen Syrian Napier placed. Attempted 18 Syrian however there is difficulty getting into the bladder Sixteen Syrian placed with 7 cc in balloon Complicated suprapubic tube change CPT 69767-47
[2024-01-10 11:17] LABS: Alanine Aminotransferase 15 U/L (0-40); Albumin Level 3.2 g/dL (3.5-5.0); Alkaline Phosphatase 89 U/L (39-117); Anion Gap 10 (12-20); Aspartate Amino Transferase 20 U/L (5-37); Bilirubin Total 0.6 mg/dL (0.0-1.0); Blood Urea Nitrogen 20 mg/dL (9-16); Calcium 8.3 mg/dL (8.4-10.2); Carbon Dioxide 22 mmol/L (22-29); Chloride 105 mmol/L (96-108); Creatinine Clr Calc Pharmacy 43.4; Estimated Glomerular Filt Rate > 60; Glucose Random 91 mg/dL (60-115); Potassium 4.3 mmol/L (3.3-5.1); Sodium 133 mmol/L (135-145); Total Protein 6.7 g/dL (6.5-8.0)
[2024-01-10 12:00] VITALS: BP 87/56; PULSE 69; RESP 19; TEMP 36.9; O2SAT 98
[2024-01-10 12:56] LABS: Bacteria Urine 4+ (None Seen); Hyaline Casts Urine 0-2 /LPF (0-2); Other Crystals Urine Present; RBC Urine >20 /HPF (0-2); Squamous Epithelial Cell Urine 0-2 /HPF (0-2); UACC Culture Trigger YES; WBC Urine >50 /HPF (0-5)
[2024-01-10 14:06] VITALS: BP 00/00; PULSE 0; RESP 0; TEMP -17.7; TEMP 0; O2SAT 0
== END 2024-01-10 14:07 | disposition skilled nursing facility (03) ==
PROVIDERS: Physician Assistant; Emergency Provider Emergency Medicine; PCP Internal Medicine
DX: N39.0 Urinary tract infection, site not specified (principal); T83.9XXA Unspecified complication of genitourinary prosthetic device, implant and graft, initial encounter; Y73.8 Miscellaneous gastroenterology and urology devices associated with adverse incidents, not elsewhere classified; Y92.9 Unspecified place or not applicable; Z79.899 Other long term (current) drug therapy
CPT/HCPCS: 36415; 51702; 80053; 81001; 85025; 87086; 99284; 99285

== ENCOUNTER → 2024-01-31 09:30 | Outpatient (BNVA) | payer MEDICARE, MEDICAID, SELFPAY | PROVIDERS: PCP Internal Medicine; Visit Provider Urology | DX: N31.9 Neuromuscular dysfunction of bladder, unspecified (principal); N39.45 Continuous leakage | CPT/HCPCS: 51705 ==

== ENCOUNTER → 2024-02-23 13:16 | Outpatient (BNVA) | payer MEDICARE, MEDICAID, SELFPAY | PROVIDERS: PCP Internal Medicine; Visit Provider Urology | DX: N31.9 Neuromuscular dysfunction of bladder, unspecified (principal) | CPT/HCPCS: 51705 ==

== ENCOUNTER 2024-09-20 02:39 | Emergency (ER) | payer MEDICARE, MEDICAID, SELFPAY ==
[2024-09-20] VITALS (7 sets, daily range): BP systolic 112–135; BP diastolic 52–85; PULSE 57–80; RESP 16–20; TEMP 36.1–37.4; O2SAT 92–98; BMI 37.8
--- NOTE | ~2024-09-20 | CT_ITS ---
EXAMINATION: CT ABDOMEN AND PELVIS WITHOUT CONTRAST CLINICAL INFORMATION: Suprapubic cath malfunction, cellulitis abd wall COMPARISON: CT scans dating between November 06, 2023 and August 11, 2017. TECHNIQUE: Multidetector volumetric imaging was performed from the superior aspect of the liver through the pubic symphysis. Sagittal and coronal reformatted images were obtained on the technologist's workstation. This CT examination was performed using dose optimization techniques as appropriate, variously including the following: *Automated exposure control *Adjustment of mA and/or kV according to patient size (this includes techniques or standardized protocols for targeted exams where dose is matched to indication/reason for exam; i.e. extremities or head) *Use of iterative reconstruction technique DLP: 1139 mGy-cm FINDINGS: LUNG BASES: Mild bibasilar fibrotic streaks and/or atelectasis. No focal infiltrate or effusion. Mild to moderate cardiomegaly. Partially imaged coronary arterial calcification. No pericardial effusion. LIVER, GALLBLADDER, AND BILIARY TREE: The liver appears unremarkable in size, shape, and attenuation. No focal hepatic lesion or biliary ductal dilatation is appreciated. Gallbladder not visualized, suggesting prior surgical removal. PANCREAS: Unremarkable SPLEEN: Unremarkable ADRENAL GLANDS: Unremarkable KIDNEYS AND URETERS: The kidneys appear unremarkable in size, shape, and attenuation. No hydronephrosis, hydroureter, or calculi seen. BLADDER/GASTROINTESTINAL TRACT/ABDOMINAL WALL: The urinary bladder is collapsed, therefore suboptimally evaluated. There may be bladder wall thickening and a small amount of air within the lumen of the urinary bladder. The tip and balloon of a suprapubic tube appear to lie external to the bladder, probably having been pulled back into the subcutaneous soft tissues of the mid lower anterior abdominal wall. These findings are new compared with November 06, 2023. Status post left lower quadrant colostomy with Kamara's pouch. Approximately 13.5 cm parastomal herniation containing multiple loops of small bowel. No evidence of intestinal obstruction. Colonic diverticula without evidence of acute diverticulitis. Normal-appearing distal ileum and vermiform appendix. Approximately 5 cm umbilical hernia containing only fat. Soft tissue density extends from the gluteal regions to the posterior aspects of the facial bones, probably related to decubitus changes. Recommend clinical correlation. LYMPH NODES: No evidence of adenopathy by size criteria. VASCULAR: Fusiform aneurysmal dilation of the infrarenal abdominal aorta measuring up to approximately 5.3 x 4.8 cm, having measured approximately 5.1 x 4.8 cm on most recent prior study from November 06, 2023. Chronic dissection of the abdominal aorta, grossly similar in appearance on this noncontrast study compared with November 06, 2023. Diffuse arterial calcification. Vascular tortuosity suggesting hypertension. PELVIC VISCERA: Unremarkable OSSEOUS STRUCTURES: Severely decreased bone mineral density limits sensitivity for subtle fracture. Mild compression deformity of T12 and moderate compression deformity of L2, unchanged compared with November 06, 2023. Saturated lumbar lordosis. Status post median sternotomy. Moderate osteoarthritis of the hips. CT/CT abdomen pelvis wo IV con IMPRESSION: The urinary bladder is collapsed, therefore suboptimally evaluated. There may be bladder wall thickening and a small amount of air within the lumen of the urinary bladder. The tip and balloon of a suprapubic tube appear to lie external to the bladder, probably having been pulled back into the subcutaneous soft tissues of the mid lower anterior abdominal wall. These findings are new compared with November 06, 2023. Fusiform aneurysmal dilation of the infrarenal abdominal aorta measuring up to approximately 5.3 x 4.8 cm, having measured approximately 5.1 x 4.8 cm on most recent prior study from November 06, 2023. Recommend vascular surgical consultation and follow-up imaging every 6 months. Multiple additional findings as detailed above. Electronically signed by: Fabrizio Manuel MD 09/20/2024 07:52 AM [facility]
--- NOTE | 2024-09-20 03:46 | PC.NURSE ---
bladder scan done at bedside, 7ml recorded. brief was soiled. pt reports he normally leaks urine from his penis but this full brief was more than normal output. suprapubic cath not working to drain
--- NOTE | 2024-09-20 05:13 | ED.MALEGU ---
HPI - Male Genitourinary General Chief complaint: Urogenital-Male Stated complaint: Pain-superpubic cath &no urine output since 09/19 Time Seen by Provider: 09/20/24 05:13 Source: patient and EMS Mode of arrival: EMS Limitations: no limitations History of Present Illness ED Provider: DR. Mcdermott HPI Narrative: A 69-year-old male history of AFib, recurrent UTIs with chronic suprapubic cath in place, diverticulitis, neurogenic bladder, came in from custodial for evaluation of malfunctioning suprapubic catheter patient stated it was changed at the custodial yesterday but only drain blood clots without urine and lot of urine is passing from the penis. Patient also feels pain in the suprapubic area. Related Data Home Medications ?Medication ?Instructions ?Recorded ?Confirmed apixaban 5 mg tablet (Eliquis) 1 tab PO BID 04/07/21 11/07/23 atorvastatin 20 mg tablet 1 tab PO DAILY 04/07/21 11/07/23 furosemide 20 mg tablet 1 tab PO BID 04/07/21 11/07/23 metoprolol tartrate 25 mg tablet 0.5 tab PO BID 07/02/21 11/07/23 vibegron 75 mg tablet (Gemtesa) 75 mg PO DAILY 10/19/23 11/07/23 bisacodyl 10 mg rectal suppository 10 mg [place] DAILY PRN 12/14/23 (Dulcolax (bisacodyl)) culture oral capsules PO BID 12/14/23 fluoxetine 40 mg capsule 40 mg PO DAILY 12/14/23 Previous Rx's ?Medication ?Instructions ?Recorded cefuroxime axetil 250 mg tablet 250 mg PO BID #14 tabs 12/12/23 ascorbic acid (vitamin C) 1,000 mg 1 g PO DAILY 90 days #90 tabs 12/14/23 tablet methenamine hippurate 1 gram tablet 1 g PO DAILY 90 days #90 tabs 12/14/23 cefuroxime axetil 250 mg tablet 250 mg PO BID 7 days #14 tabs 01/10/24 nitrofurantoin 100 mg PO BID 7 days #14 caps 01/10/24 monohydrate/macrocrystals 100 mg capsule (Macrobid) Allergies Allergy/AdvReac Type Severity Reaction Status Date / Time No Known Allergies Allergy Verified 09/20/24 03:03 [No Known Allergies*] Review of Systems Review of Systems: All other systems are reviewed and are negative Constitutional: Reports as per HPI and Reports no additional constitutional complaints Eyes: Reports as per HPI and Reports no additional eye complaints Reports system reviewed and no additional complaints, except as documented Cardiovascular: Reports as per HPI and Reports no additional cardiovascular complaints Respiratory: Reports as per HPI and Reports no additional respiratory complaints Gastrointestinal: Reports as per HPI and Reports no additional gastrointestinal complaints Genitourinary: Reports no additional female genitourinary complaints Musculoskeletal: Reports no additional musculoskeletal complaints Skin/Breast: Reports system reviewed and no additional complaints, except as docu Psychiatric: Reports no additional psychiatric complaints Endocrine: Reports no additional endocrine complaints Hematologic/Lymphatic: Reports no additional hematologic/lymphatic complaints Allergic/Immunologic: Reports no additional allergic/immunologic complaints Reports system reviewed and no additional complaints, except as documented and Reports Abnormal speech present [facility] Past Medical History Medical History Parastomal hernia Chronic indwelling Napier catheter Atrial fibrillation with slow ventricular response Left below-knee amputee Chronic indwelling Napier catheter Elevated cholesterol Muscle weakness Embolism Atrial fibrillation Essential hypertension Major depressive disorder COVID Surgical History S/P colostomy H/O colonoscopy Hx of cholecystectomy History of AAA (abdominal aortic aneurysm) repair Social History Social History Household Members: Other Household Members Other:: self Housing: Apartment Are you a primary director of career services to a significant other at home: No Do you presently have visiting nurse or other home services: Yes Alcohol intake: former Comment: Refusing red fall risk wrist band. Patient Tobacco Use Status: Former Tobacco user Tobacco use type: Cigarette Smoked in Last 30 Days: No Use of substances other than those prescribed or required for medical reasons: No Advance Directives: Yes Advance Directives on File: Yes Advance Directives Date on File: 04/08/21 service: No Current occupational status: disabled Physical Exam Vital Signs: Vital Signs: Last Vital Signs Temp 99.3 F 09/20/24 06:36 Pulse 68 09/20/24 06:36 Resp 16 09/20/24 06:36 BP 117/56 L 09/20/24 06:36 Pulse Ox 97 09/20/24 06:36 O2 Del Method Room Air 09/20/24 06:36 BMI result Body Mass Index 37.8 Vital signs have been reviewed and appear to be correct. Blood pressure elevated. Heart rate normal. Respiratory rate normal. Temperature normal. Oxygen saturation normal. Appearance: Alert. Oriented X3. No acute distress. Head: Normal external exam. Normocephalic. Atraumatic. No Velasquez signs noted. No raccoon eyes noted Eyes: PERRLA. EOMI. Conjunctiva and sclera normal. Eyelids normal. ENT: TM's Normal. Pharynx normal. Uvula midline. Moist mucous membranes. No trismus noted. No drooling noted. No muffled voice noted. Neck: Normal inspection. Neck supple. FROM. No adenopathy. Thyroid Normal. No meningeal signs. No neck mass noted. CVS: Normal heart rate and rhythm. Heart sound normal. No murmurs noted. Pulses normal throughout. Respiratory: No respiratory distress. Painless inspiration. Breath sounds normal. No wheezes/rales/rhonchi noted. Chest nontender. No accessory muscle usage noted or decreased air movement noted. Abdomen: Soft and nontender. Bowel sounds normal in all 4 quadrants. No distention noted. No organomegaly noted. No visible injury noted. Back: No CVA tenderness. Full range of motion noted. Skin: Skin warm and dry. Normal skin color. Normal skin turgor. No rashes/lesions/lacerations noted. Extremities: No lower extremity edema. Extremities exhibit normal range of motion. Extremities nontender. Neuro: Oriented X 3. Cranial nerve exam: II-XII are grossly intact No motor deficit. No sensory deficit. Reflexes normal. Course Reevaluation(s) Reevaluation #1: Malfunctioning suprapubic catheter that was changed at the custodial yesterday , patient feeling unusual pain, suprapubic catheter was replaced in the ED with another 16 [place] Napier catheter still not draining urine. DR. Mcdermott The area of suprapubic abdominal wall cellulitis will review CT for necrotizing fasciitis. Time: 06:56 Medications Administered Discontinued Medications Generic Name Dose Route Start Last Admin Trade Name Freq PRN Reason Stop Dose Admin Oxycodone HCl 5 mg 09/20/24 05:29 09/20/24 05:36 Oxycodone Hcl Immed Release 5 Mg Tablet PO 09/20/24 05:30 5 mg ONCE ONE Administration Medical Decision Making Differential Diagnosis Differential Diagnoses: The differential diagnosis associated with the presentation includes (Suprapubic catheter complication, UTI, abdominal wall cellulitis, severe anemia, electrolyte derangement.) Admission/Observation Consideration of admission/observation: Escalation of care including admission/observation considered Lab Data MDM Lab Attestation statement: I reviewed the patient's lab results. 09/20/24 06:35 09/20/24 06:35 Independent Interpretation I performed an independent interpretation of an: CT Scan Discharge Plan Discharge Clinical Impression: Mechanical complication of suprapubic catheter Patient Disposition: Still a Patient Prescriptions: No Action atorvastatin 20 mg tablet 1 tab PO DAILY furosemide 20 mg tablet 1 tab PO BID Eliquis 5 mg tablet 1 tab PO BID metoprolol tartrate 25 mg tablet 0.5 tab PO BID cefuroxime axetil 250 mg tablet 250 mg PO BID Qty: 14 0RF Gemtesa 75 mg tablet 75 mg PO DAILY cefuroxime axetil 250 mg tablet 250 mg PO BID 7 Days Qty: 14 0RF nitrofurantoin monohyd/m-cryst [Macrobid] 100 mg capsule 100 mg PO BID 7 Days Qty: 14 0RF Rx Instructions: must administer with a meal/food fluoxetine 40 mg capsule 40 mg PO DAILY culture oral capsules PO BID bisacodyl [Dulcolax (bisacodyl)] 10 mg suppository 10 mg NE DAILY PRN ascorbic acid (vitamin C) 1,000 mg tablet 1 g PO DAILY 90 Days Qty: 90 1RF methenamine hippurate 1 gram tablet 1 g PO DAILY 90 Days Qty: 90 1RF Print Language: Barbadian
[2024-09-20] MEDS: oxyCODONE HCl Immed Release 5 MG TABLET PO (05:36)
[2024-09-20 06:45] LABS: MANUAL DIFF FLAG NO
[2024-09-20 07:01] LABS: Alanine Aminotransferase 15 U/L (0-40); Albumin Level 3.6 g/dL (3.5-5.0); Alkaline Phosphatase 87 U/L (39-117); Anion Gap 14 (12-20); Aspartate Amino Transferase 17 U/L (5-37); Bilirubin Total 0.7 mg/dL (0.0-1.0); Blood Urea Nitrogen 16 mg/dL (9-16); Calcium 8.5 mg/dL (8.4-10.2); Carbon Dioxide 25 mmol/L (22-29); Chloride 95 mmol/L (96-108); Estimated Glomerular Filt Rate > 60; Glucose Random 89 mg/dL (60-115); Lactic Acid 1.4 mmol/L (0.5-2.0); Potassium 4.2 mmol/L (3.3-5.1); Sodium 130 mmol/L (135-145); Total Protein 6.9 g/dL (6.5-8.0)
[2024-09-20 07:05] LABS: Basophils Percent Auto 0.3 % (0-2); Eosinophils Absolute Auto 0.2 X10*3/uL (0.0-0.4); Hematocrit 39.2 % (42.0-52.0); Hemoglobin 13.1 g/dl (14.0-18.0); Imm Gran Abs Auto 0.02 X10*3/uL (0.00-0.03); Imm Gran Pct Auto 0.3 % (0.0-0.4); Lymphocytes Absolute Auto 0.8 X10*3/uL (1.2-4.9); Lymphocytes Percent Auto 10.4 % (20-40); Mean Corpuscular HGB Conc 33.4 g/dl (31.0-36.0); Mean Corpuscular Hemoglobin 30.8 pg (27.0-33.0); Mean Platelet Volume 9.7 fL (9.4-12.4); Monocytes Absolute Auto 0.8 X10*3/uL (0.1-1.2); Monocytes Percent Auto 11.1 % (2-11); Neutrophils Absolute Auto 5.8 x10*3/uL (2.0-8.3); Neutrophils Percent Auto 75.9 % (45-73); Platelet Count 184 X10*3/uL (160-400); Red Blood Count 4.26 X10*6/uL (4.60-5.80); Red Cell Distribution Width 13.5 % (11.0-16.0); White Blood Count 7.6 X10*3/uL (4.8-10.8)
--- NOTE | 2024-09-20 11:10 | PC.NURSE ---
Urologist has been at bedside and now just left for additional tools. Pt has been tolerating well but requests pain meds at this time.
--- NOTE | 2024-09-20 11:58 | P.CNUR_ITS ---
[facility] Past Medical History Medical History Parastomal hernia Chronic indwelling Napier catheter Atrial fibrillation with slow ventricular response Left below-knee amputee Chronic indwelling Napier catheter Elevated cholesterol Muscle weakness Embolism Atrial fibrillation Essential hypertension Major depressive disorder COVID Surgical History Surgical History S/P colostomy H/O colonoscopy Hx of cholecystectomy History of AAA (abdominal aortic aneurysm) repair Social History Social History Household Members: Other Household Members Other:: self Housing: Apartment Are you a primary point of care technician to a significant other at home: No Do you presently have visiting nurse or other home services: Yes Alcohol intake: former Comment: Refusing red fall risk wrist band. Patient Tobacco Use Status: Former Tobacco user Tobacco use type: Cigarette Smoked in Last 30 Days: No Use of substances other than those prescribed or required for medical reasons: No Advance Directives: Yes Advance Directives on File: Yes Advance Directives Date on File: 04/08/21 service: No Current occupational status: disabled Meds Allergies Allergy/AdvReac Type Severity Reaction Status Date / Time No Known Allergies Allergy Verified 09/20/24 03:03 [No Known Allergies*] Home Medications ?Medication ?Instructions ?Recorded ?Confirmed ?Last Taken ?Type apixaban 5 mg tablet (Eliquis) 1 tab PO BID 04/07/21 11/07/23 2 Days Ago History ~10/22/23 atorvastatin 20 mg tablet 1 tab PO DAILY 04/07/21 11/07/23 2 Days Ago History ~10/22/23 furosemide 20 mg tablet 1 tab PO BID 04/07/21 11/07/23 2 Days Ago History ~10/22/23 metoprolol tartrate 25 mg tablet 0.5 tab PO BID 07/02/21 11/07/23 10/23/23 History vibegron 75 mg tablet (Gemtesa) 75 mg PO DAILY 10/19/23 11/07/23 2 Days Ago History ~10/22/23 bisacodyl 10 mg rectal suppository 10 mg [place] DAILY PRN 12/14/23 Unknown History (Dulcolax (bisacodyl)) culture oral capsules PO BID 12/14/23 Unknown History fluoxetine 40 mg capsule 40 mg PO DAILY 12/14/23 Unknown History Physical Exam 2 Vital Signs: Vital Signs: Last Vital Signs Temp 97.8 F 09/20/24 11:07 Pulse 66 09/20/24 11:07 Resp 20 09/20/24 11:07 BP 134/85 09/20/24 11:07 Pulse Ox 97 09/20/24 11:07 O2 Del Method Room Air 09/20/24 11:07 BMI result Body Mass Index 37.8 Results Labs 09/20/24 06:35 09/20/24 06:35 Labs: Abnormal lab results 09/20/24 Range/Units 06:35 RBC 4.26 L (4.60-5.80) X10*6/uL Hgb 13.1 L (14.0-18.0) g/dl Hct 39.2 L (42.0-52.0) % Neut % (Auto) 75.9 H (45-73) % Lymph % (Auto) 10.4 L (20-40) % [place] % (Auto) 11.1 H (2-11) % Lymph # (Auto) 0.8 L (1.2-4.9) X10*3/uL Sodium 130 L (135-145) mmol/L Chloride 95 L (96-108) mmol/L Creatinine 0.49 L (0.5-1.4) mg/dL Short CBC 09/20/24 Range/Units 06:35 WBC 7.6 (4.8-10.8) X10*3/uL Hgb 13.1 L (14.0-18.0) g/dl Hct 39.2 L (42.0-52.0) % Plt Count 184 (160-400) X10*3/uL BMP 09/20/24 06:35 Sodium 130 L Potassium 4.2 Chloride 95 L Carbon Dioxide 25 BUN 16 Creatinine 0.49 L Calcium 8.5 Liver Function 09/20/24 Range/Units 06:35 Total Bilirubin 0.7 (0.0-1.0) mg/dL AST 17 (5-37) U/L ALT 15 (0-40) U/L Alkaline Phosphatase 87 (39-117) U/L Albumin 3.6 (3.5-5.0) g/dL All other labs normal. Procedures Date of Service Date of Service: 09/20/24
--- NOTE | 2024-09-20 11:59 | P.CNUR_ITS ---
[facility] Past Medical History Medical History Parastomal hernia Chronic indwelling Barth catheter Atrial fibrillation with slow ventricular response Left below-knee amputee Chronic indwelling Barth catheter Elevated cholesterol Muscle weakness Embolism Atrial fibrillation Essential hypertension Major depressive disorder COVID Surgical History Surgical History S/P colostomy H/O colonoscopy Hx of cholecystectomy History of AAA (abdominal aortic aneurysm) repair Social History Social History Household Members: Other Household Members Other:: self Housing: Apartment Are you a primary rn complex care to a significant other at home: No Do you presently have visiting nurse or other home services: Yes Alcohol intake: former Comment: Refusing red fall risk wrist band. Patient Tobacco Use Status: Former Tobacco user Tobacco use type: Cigarette Smoked in Last 30 Days: No Use of substances other than those prescribed or required for medical reasons: No Advance Directives: Yes Advance Directives on File: Yes Advance Directives Date on File: 04/08/21 service: No Current occupational status: disabled Meds Allergies Allergy/AdvReac Type Severity Reaction Status Date / Time No Known Allergies Allergy Verified 09/20/24 03:03 [No Known Allergies*] Home Medications ?Medication ?Instructions ?Recorded ?Confirmed ?Last Taken ?Type apixaban 5 mg tablet (Eliquis) 1 tab PO BID 04/07/21 11/07/23 2 Days Ago History ~10/22/23 atorvastatin 20 mg tablet 1 tab PO DAILY 04/07/21 11/07/23 2 Days Ago History ~10/22/23 furosemide 20 mg tablet 1 tab PO BID 04/07/21 11/07/23 2 Days Ago History ~10/22/23 metoprolol tartrate 25 mg tablet 0.5 tab PO BID 07/02/21 11/07/23 10/23/23 History vibegron 75 mg tablet (Gemtesa) 75 mg PO DAILY 10/19/23 11/07/23 2 Days Ago History ~10/22/23 bisacodyl 10 mg rectal suppository 10 mg [place] DAILY PRN 12/14/23 Unknown History (Dulcolax (bisacodyl)) culture oral capsules PO BID 12/14/23 Unknown History fluoxetine 40 mg capsule 40 mg PO DAILY 12/14/23 Unknown History Physical Exam 2 Vital Signs: Vital Signs: Last Vital Signs Temp 97.8 F 09/20/24 11:07 Pulse 66 09/20/24 11:07 Resp 20 09/20/24 11:07 BP 134/85 09/20/24 11:07 Pulse Ox 97 09/20/24 11:07 O2 Del Method Room Air 09/20/24 11:07 BMI result Body Mass Index 37.8 Results Labs 09/20/24 06:35 09/20/24 06:35 Labs: Abnormal lab results 09/20/24 Range/Units 06:35 RBC 4.26 L (4.60-5.80) X10*6/uL Hgb 13.1 L (14.0-18.0) g/dl Hct 39.2 L (42.0-52.0) % Neut % (Auto) 75.9 H (45-73) % Lymph % (Auto) 10.4 L (20-40) % [place] % (Auto) 11.1 H (2-11) % Lymph # (Auto) 0.8 L (1.2-4.9) X10*3/uL Sodium 130 L (135-145) mmol/L Chloride 95 L (96-108) mmol/L Creatinine 0.49 L (0.5-1.4) mg/dL Short CBC 09/20/24 Range/Units 06:35 WBC 7.6 (4.8-10.8) X10*3/uL Hgb 13.1 L (14.0-18.0) g/dl Hct 39.2 L (42.0-52.0) % Plt Count 184 (160-400) X10*3/uL BMP 09/20/24 06:35 Sodium 130 L Potassium 4.2 Chloride 95 L Carbon Dioxide 25 BUN 16 Creatinine 0.49 L Calcium 8.5 Liver Function 09/20/24 Range/Units 06:35 Total Bilirubin 0.7 (0.0-1.0) mg/dL AST 17 (5-37) U/L ALT 15 (0-40) U/L Alkaline Phosphatase 87 (39-117) U/L Albumin 3.6 (3.5-5.0) g/dL All other labs normal. Assessment and Plan (1) Hypospadias: Qualifiers: Hypospadias type: penile Qualified Code(s): Q54.1 - Hypospadias, penile Status: Acute (2) Neurogenic bladder: Status: Acute Plan SP stoma closed barth catheter in urethra placed Procedures Date of Service Date of Service: 09/20/24
--- NOTE | 2024-09-20 12:10 | PC.NURSE ---
tolerated proceedures from uro well. requesting IV pain meds. 2 unsuccessful attempts by this RN. US requested from additional RN. Pt has coude barth with scant amount pink tinged urine (aprox 5ml)
[2024-09-20] MEDS: LORazepam 1 MG TABLET PO (13:17)
[2024-09-20] MEDS: cefTRIAXone sodium 1 GM VIAL IVPUSH (13:20)
[2024-09-20] MEDS: Morphine Sulfate 4 MG/ML CARTRIDGE IVPUSH (13:21)
--- NOTE | 2024-09-20 15:40 | PC.NURSE ---
resting without complaints at this time.
--- NOTE | 2024-09-20 15:50 | PC.NURSE ---
report given to facility.
--- NOTE | 2024-09-20 17:59 | PC.NURSE ---
late entry note Dr Duron from Uro on phone. states that barth cath is expected to leak and that f/u needed for placement of suprpubic.
== END 2024-09-20 18:05 ==
PROVIDERS: Emergency Medicine; Emergency Provider Emergency Medicine
DX: T83.9XXA Unspecified complication of genitourinary prosthetic device, implant and graft, initial encounter (principal); Y73.8 Miscellaneous gastroenterology and urology devices associated with adverse incidents, not elsewhere classified; Y92.129 Unspecified place in nursing home as the place of occurrence of the external cause; R10.33 Periumbilical pain; R10.2 Pelvic and perineal pain; R33.9 Retention of urine, unspecified; Z79.899 Other long term (current) drug therapy; Z87.891 Personal history of nicotine dependence
CPT/HCPCS: 36415; 51702; 51798; 74176; 80053; 83605; 85025; 87040; 96374; 96375; 99284; 99285; J0696; J2270

== ENCOUNTER → 2024-09-20 03:22 | Outpatient (BNV) | payer MEDICARE, MEDICAID, SELFPAY | PROVIDERS: Emergency Provider Emergency Medicine; Visit Provider Urology | DX: N31.9 Neuromuscular dysfunction of bladder, unspecified (principal); Q54.1 Hypospadias, penile | CPT/HCPCS: 52000; 99281 ==

== ENCOUNTER 2024-10-12 10:35 | Emergency (ER) | payer MEDICARE, MEDICAID, SELFPAY ==
--- NOTE | ~2024-10-12 | CT_ITS ---
CLINICAL HISTORY: abd pain CT abdomen and pelvis with contrast Comparison: CT - CT ABDOMEN PELVIS W IV CON - 10/12/24 11:[address]/AZ/SR - CT ABDOMEN PELVIS WO IV CON - 09/20/24 05:53 EST Findings: The lung bases are clear. Known descending thoracic aortic dissection with similar measurements. The dissection ends of the level of the renal arteries. The superior mesenteric and celiac arteries arise from the true lumen. The liver, spleen, adrenal glands and pancreas are stable. Significant narrowing of the duodenum as it crosses between the aorta and superior mesenteric artery. There is a bowel obstruction related to a ventral hernia and apparent parastomal ostomy. No pneumatosis or free air. An additional right-sided fat containing ventral hernias noted. Diffuse severe atherosclerotic disease. Degenerative changes are present within the spine. No definite acute process. Impression: There is a bowel obstruction related to a prominent ventral hernia containing several loops of bowel. The exiting bowel loops are decompressed. Similar-appearing type B dissection. This document has been electronically signed by: Shine Mendez MD on 10/12/2024 12:41:18
--- NOTE | 2024-10-12 10:40 | ED.ABDPAIN ---
HPI - Abdominal Pain General Chief Complaint: Abdominal Pain Stated Complaint: ABD PAIN Time Seen by Provider: 10/12/24 10:39 Source: patient and RN notes reviewed Mode of arrival: ambulatory Limitations: no limitations History of Present Illness ED Provider: Penelope Okeefe PA-C HPI narrative: This is a 68-year-old male with pertinent history of paroxysmal atrial fibrillation on Eliquis, mood disorder, essential hypertension, neurogenic bladder on chronic Napier, peripheral vascular disease status post left BKA, history of diverticulitis status post colostomy who presents to the emergency department with complaints of abdominal pain, nausea and vomiting x3 days. Patient reports he has had increased swelling around his colostomy bag. He denies any fevers, chills, chest pain, shortness for breath, diarrhea. He states that he has had decreased stool output from his colostomy bag. He is unsure when he last ate. No other complaints or concerns at this time. MD elicited complaint: abdominal pain Pertinent past history: none Pain Consistency: constant Location: none Quality: aching Radiation: none Migration to: no migration Exacerbating factors: nothing Relieving factors: nothing Context: foreign travel Associated symptoms: nausea and vomiting Related Data Home Medications ?Medication ?Instructions ?Recorded ?Confirmed apixaban 5 mg tablet (Eliquis) 1 tab PO BID 04/07/21 11/07/23 atorvastatin 20 mg tablet 1 tab PO DAILY 04/07/21 11/07/23 furosemide 20 mg tablet 1 tab PO BID 04/07/21 11/07/23 metoprolol tartrate 25 mg tablet 0.5 tab PO BID 07/02/21 11/07/23 vibegron 75 mg tablet (Gemtesa) 75 mg PO DAILY 10/19/23 11/07/23 bisacodyl 10 mg rectal suppository 10 mg AL DAILY PRN 12/14/23 (Dulcolax (bisacodyl)) culture oral capsules PO BID 12/14/23 fluoxetine 40 mg capsule 40 mg PO DAILY 12/14/23 Previous Rx's ?Medication ?Instructions ?Recorded cefuroxime axetil 250 mg tablet 250 mg PO BID #14 tabs 12/12/23 ascorbic acid (vitamin C) 1,000 mg 1 g PO DAILY 90 days #90 tabs 12/14/23 tablet methenamine hippurate 1 gram tablet 1 g PO DAILY 90 days #90 tabs 12/14/23 cefuroxime axetil 250 mg tablet 250 mg PO BID 7 days #14 tabs 01/10/24 nitrofurantoin 100 mg PO BID 7 days #14 caps 01/10/24 monohydrate/macrocrystals 100 mg capsule (Macrobid) cefuroxime axetil 500 mg tablet 500 mg PO BID 5 days #10 tabs 09/20/24 nitrofurantoin 100 mg PO BID #10 caps 09/20/24 monohydrate/macrocrystals 100 mg capsule (Macrobid) Allergies Allergy/AdvReac Type Severity Reaction Status Date / Time No Known Allergies Allergy Verified 10/12/24 11:11 [No Known Allergies*] Review of Systems Review of Systems Yes all other systems are reviewed and are negative Constitutional: Reports as per [facility] Past Medical History Medical History Parastomal hernia Chronic indwelling Napier catheter Atrial fibrillation with slow ventricular response Left below-knee amputee Chronic indwelling Napier catheter Elevated cholesterol Muscle weakness Embolism Atrial fibrillation Essential hypertension Major depressive disorder COVID Surgical History S/P colostomy H/O colonoscopy Hx of cholecystectomy History of AAA (abdominal aortic aneurysm) repair Social History Social History Household Members: Other Household Members Other:: self Housing: Apartment Are you a primary healthcare business analyst to a significant other at home: No Do you presently have visiting nurse or other home services: Yes Alcohol intake: former Comment: Refusing red fall risk wrist band. Patient Tobacco Use Status: Former Tobacco user Tobacco use type: Cigarette Advance Directives: Yes Advance Directives on File: Yes Advance Directives Date on File: 04/08/21 Do you have a plan to hurt others: No Plan service: No Current occupational status: disabled Physical Exam ED Vital Signs: Vital Signs - 24 hr 10/12/24 10:47 Temperature 98.5 F Pulse Rate 113 H Respiratory Rate 18 Blood Pressure 129/76 Pulse Oximetry 98 Oxygen Delivery Method Room Air BMI result Body Mass Index 37.2 Const General: cooperative, comfortable and no acute distress Orientation/consciousness: patient oriented x3 Limitations: no limitations HENMT Head: Yes normal to inspection, Yes normocephalic and Yes atraumatic Ears: hearing grossly normal bilaterally General nose exam: Normal external nose present Face and sinus: Yes normal facial exam Mouth: Normal oral and palatal mucosa present, oropharynx normal and moist mucous membranes Throat: Yes posterior oropharynx normal Eyes General: appearance normal, both eyes and all related structures Eyelids: Yes eyelids normal Conjunctivae: conjunctivae normal Sclerae: sclerae normal Pupils: Equal, round and reactive pupils present EOM: EOMs intact bilaterally Neck Neck: Yes normal visual inspection, Yes full ROM and Yes no lymphadenopathy Lymphatic: no lymphadenopathy noted Chest Chest palpation & inspection: normal inspection of the chest Resp Effort & Inspection: normal respiratory effort and able to speak in complete sentences Auscultation: clear to auscultation bilaterally, no crackles, no rales, no rhonchi and no wheezes Cardio Rate: regular rate Rhythm: regular rhythm Heart sounds: S1 normal heart sound present and S2 normal heart sound present GI Other: abdomen is distended, large ventral hernia noted, he does have moderate swelling noted around the colostomy bag. TTP. No an sounds heard in left upper and left lower abdomen. Inspection: Yes normal to inspection Skin General skin exam: no rashes or lesions noted Trauma: no lacerations or abrasions Wounds: no wounds Neuro General: patient oriented x3 and moves all extremities Cranial nerves: Yes Equal, round and reactive pupils present Extrem Other: Left BKA noted. General: Yes normal to inspection Right upper extremity: normal to inspection Left upper extremity: normal to inspection Course Reevaluation(s) Reevaluation #1: Received critical report of bowel obstruction with the abdomen. Paged Dr. Ashton, surgeon for consult. Time: 12:46 Reevaluation #2: Discussed case with surgeon, states that this patient is very complex, and needs extensive repair, states this is too involved, and we do not contain a mesh as large as patient would need. He recommends transfer. Patient out to [facility] for transfer Time: 13:26 Reevaluation #3: Spoke to Dr. Kaur, surgeon, who reviewed patient's case. She stated that this patient is well-known to the facility, with a significant cardiac history in his uncertain if this is a surgical candidate but recommends ED to ED transfer with surgical consult. Time: 14:34 Medical Decision Making Medical Decision Making MDM Narrative: this is a 69-year-old male, paroxysmal atrial fibrillation on Eliquis, mood disorder, essential hypertension, neurogenic bladder on chronic Napier, peripheral vascular disease status post left BKA, history of diverticulitis status post colostomy, who presents emergency department for evaluation of abdominal pain, nausea and vomiting. arrival, patient tachycardic at 113, all other vital signs within normal limits. He is speaking full sentences under no acute distress. Abdomen is distended, he does have mild swelling/ventral hernia, noted along the left abdomen, surrounding the colostomy. Differential diagnoses include colostomy malfunction, SBO, diverticulitis, diverticulosis. plan: labs, EKG, CT abdomen and pelvis with IV contrast Differential Diagnosis Differential Diagnoses: The differential diagnosis associated with the presentation includes see above Admission/Observation Consideration of admission/observation: Escalation of care including admission/observation considered Consult Healthcare Provider Management of the patient was discussed with: Campground Attendant Dr. Ashton, [facility] > surgeon Dr. Da Silva, [facility] surgeon Lab Data [facility] Lab Attestation statement: I reviewed the patient's lab results. No leukocytosis, stable H&H, chemistry with no evidence of FLAKITO. Total bili 1.8, direct bili 0.7, troponin 7.4, viral swabs negative. 10/12/24 11:09 10/12/24 11:09 Labs: Lab Results 10/12/24 10/12/24 Range/Units 11:09 11:24 WBC 5.9 (4.8-10.8) X10*3/uL RBC 4.68 (4.60-5.80) X10*6/uL Hgb 14.5 (14.0-18.0) g/dl Hct 42.1 (42.0-52.0) % MCV 90.0 (80.0-98.0) fL MCH 31.0 (27.0-33.0) pg MCHC 34.4 (31.0-36.0) g/dl RDW 14.0 (11.0-16.0) % Plt Count 221 (160-400) X10*3/uL MPV 9.1 L (9.4-12.4) fL Immature Gran % (Auto) 0.3 (0.0-0.4) % Neut % (Auto) 73.7 H (45-73) % Lymph % (Auto) 11.6 L (20-40) % Rice % (Auto) 13.7 H (2-11) % Eos % (Auto) 0.5 (0-4) % Baso % (Auto) 0.2 (0-2) % Lymph # (Auto) 0.7 L (1.2-4.9) X10*3/uL Rice # (Auto) 0.8 (0.1-1.2) X10*3/uL Eos # (Auto) 0.0 (0.0-0.4) X10*3/uL Baso # (Auto) 0.0 (0.0-0.2) X10*3/uL Abs Immat Gran (auto) 0.02 (0.00-0.03) X10*3/uL Absolute Neuts (auto) 4.4 (2.0-8.3) x10*3/uL Absolute Nucleated RBC 0.000 (0.0-0.012) X10*3/uL Nucleated RBC % (auto) 0.0 (0.0-0.2) /100WBC PT 22.8 H (10.9-12.4) SEC INR 2.0 H (0.9-1.1) APTT 33.2 (26.0-36.8) SEC Sodium 133 L (135-145) mmol/L Potassium 4.0 (3.3-5.1) mmol/L Chloride 96 (96-108) mmol/L Carbon Dioxide 29 (22-29) mmol/L Anion Gap 12 (12-20) BUN 36 H (9-16) mg/dL Creatinine 0.59 (0.5-1.4) mg/dL Estim Creat Clear Calc 130.1 Estimated GFR > 60 Random Glucose 116 H (60-115) mg/dL Lactic Acid 1.0 (0.5-2.0) mmol/L Calcium 9.2 D (8.4-10.2) mg/dL Magnesium 2.1 (1.6-2.6) mg/dL Total Bilirubin 1.8 H (0.0-1.0) mg/dL Direct Bilirubin 0.7 H (0.0-0.5) mg/dL AST 25 (5-37) U/L ALT 16 (0-40) U/L Alkaline Phosphatase 87 (39-117) U/L Troponin I High Sens 7.4 (<3.5-35.0) ng/L Total Protein 8.2 H (6.5-8.0) g/dL Albumin 4.1 (3.5-5.0) g/dL Lipase 18 (8-78) U/L Influenza Type A (PCR) NEGATIVE (Negative) Influenza Type B (PCR) NEGATIVE (Negative) RSV RNA Qual (PCR) NEGATIVE (Negative) SARS-CoV-2 RNA (RT-PCR) NEGATIVE (Negative) Independent Interpretation I performed an independent interpretation of an: EKG Interpretation: Atrial fibrillation with RVR ventricular rate of 113, t wave inversion in V1 and V2. Radiology Impression Discussion of test interpretation with radiology: I have reviewed the radiologist's reading. Radiologist Impression: Report Number: [id number]: Total DLP = 1432.00 mGy-cm ADDENDUMThis document has been electronically signed by: Shine Mendez MD on 10/12/2024 12:41:18 ADDENDUM: Receipt of this report by the clinical staff was confirmed with Maldonado Negrete on Oct 12, 2024 12:44:00 EST. This document has been electronically signed by: Estefany Baxter on 10/12/2024 12:44:28 Addendum Dictated By: Shine Mendez MD Addendum Signed By: <Electronically signed by Shine Mendez MD in [place]> 10/12/241244 Addendum Cosigned By: DD/ TD/TT: 10/12/24 CLINICAL HISTORY: abd pain CT abdomen and pelvis with contrast Comparison: CT - CT ABDOMEN PELVIS W IV CON - 10/12/24 11:[address]/AL/SR - CT ABDOMEN PELVIS WO IV CON - 09/20/24 05:53 EST Findings: The lung bases are clear. Known descending thoracic aortic dissection with similar measurements. The dissection ends of the level of the renal arteries. The superior mesenteric and celiac arteries arise from the true lumen. The liver, spleen, adrenal glands and pancreas are stable. Significant narrowing of the duodenum as it crosses between the aorta and superior mesenteric artery. There is a bowel obstruction related to a ventral hernia and apparent parastomal ostomy. No pneumatosis or free air. An additional right-sided fat containing ventral hernias noted. Diffuse severe atherosclerotic disease. Degenerative changes are present within the spine. No definite acute process. Impression: There is a bowel obstruction related to a prominent ventral hernia containing several loops of bowel. The exiting bowel loops are decompressed. Similar-appearing type B dissection. This document has been electronically signed by: Shine Mendez MD on 10/12/2024 12:41:18 Dictated By: Shine Mendez MD Signed By: <Electronically signed by Shine Mendez MD in [place]> Medications Administered Discontinued Medications Generic Name Dose Route Start Last Admin Trade Name Freq PRN Reason Stop Dose Admin Iohexol 100 ml 10/12/24 12:14 10/12/24 12:14 Iohexol 350 Mg/Ml 100 Ml Infus..Btl IV 10/12/24 12:15 100 ml ONCE ONE Administration Lorazepam 1 mg 10/12/24 11:21 10/12/24 11:35 Lorazepam 2 Mg/Ml Vial IVPUSH 10/12/24 11:22 1 mg ONCE ONE Administration Ondansetron HCl 4 mg 10/12/24 11:21 10/12/24 11:34 Ondansetron Hcl 4 Mg/2 Ml Vial IVPUSH 10/12/24 11:22 4 mg ONCE ONE Administration Critical Care Time Critical Care Time Critical Care Time: Yes Total Critical Care Time: 35 Attestation: I have personally provided critical care time exclusive of time spent on separately billable procedures. Time includes review of lab data, radiology results, discussion with consultants, and monitoring for potential decompensation. Intervention performed as documented. Discharge Plan Discharge Clinical Impression: Bowel obstruction Patient Disposition: [facility] Transfer Details: ED to ED transfer > Dr. Da Silva Prescriptions: No Action atorvastatin 20 mg tablet 1 tab PO DAILY furosemide 20 mg tablet 1 tab PO BID Eliquis 5 mg tablet 1 tab PO BID metoprolol tartrate 25 mg tablet 0.5 tab PO BID cefuroxime axetil 250 mg tablet 250 mg PO BID Qty: 14 0RF Gemtesa 75 mg tablet 75 mg PO DAILY cefuroxime axetil 250 mg tablet 250 mg PO BID 7 Days Qty: 14 0RF nitrofurantoin monohyd/m-cryst [Macrobid] 100 mg capsule 100 mg PO BID 7 Days Qty: 14 0RF Rx Instructions: must administer with a meal/food nitrofurantoin monohyd/m-cryst [Macrobid] 100 mg capsule 100 mg PO BID Qty: 10 0RF Rx Instructions: must administer with a meal/food cefuroxime axetil 500 mg tablet 500 mg PO BID 5 Days Qty: 10 0RF fluoxetine 40 mg capsule 40 mg PO DAILY culture oral capsules PO BID bisacodyl [Dulcolax (bisacodyl)] 10 mg suppository 10 mg AL DAILY PRN ascorbic acid (vitamin C) 1,000 mg tablet 1 g PO DAILY 90 Days Qty: 90 1RF methenamine hippurate 1 gram tablet 1 g PO DAILY 90 Days Qty: 90 1RF Print Language: Mohawk
[2024-10-12 10:44] VITALS: BP 132/82; PULSE 102; O2SAT 95
[2024-10-12 10:47] VITALS: BP 129/76; PULSE 113; RESP 18; TEMP 36.9; O2SAT 98
--- NOTE | 2024-10-12 10:49 | ECG_ITS ---
Test Reason : TACHYCARDIA Blood Pressure : */* mmHG Vent. Rate : 113 BPM Atrial Rate : * BPM P-R Int : * ms QRS Dur : 110 ms QT Int : 322 ms P-R-T Axes : * -72 88 degrees QTcB Int : 441 ms Atrial fibrillation with rapid ventricular response Left axis deviation Minimal voltage criteria for LVH, may be normal variant ( Manny product ) Nonspecific ST and T wave abnormality Abnormal ECG When compared with ECG of 25-Jul-2023 00:55, Vent. rate has increased by 48 bpm Non-specific change in ST segment in Anterior leads T wave amplitude has increased in Inferior leads Inverted T waves have replaced nonspecific T wave abnormality in Lateral leads Referred By: Penelope Okeefe Electronically Signed By: Hemanth Wing
[2024-10-12 11:10] VITALS: BMI 37.2
[2024-10-12 11:14] LABS: MANUAL DIFF FLAG NO
[2024-10-12 11:16] LABS: Basophils Percent Auto 0.2 % (0-2); Eosinophils Percent Auto 0.5 % (0-4); Hematocrit 42.1 % (42.0-52.0); Hemoglobin 14.5 g/dl (14.0-18.0); Imm Gran Abs Auto 0.02 X10*3/uL (0.00-0.03); Imm Gran Pct Auto 0.3 % (0.0-0.4); Lymphocytes Absolute Auto 0.7 X10*3/uL (1.2-4.9); Lymphocytes Percent Auto 11.6 % (20-40); Mean Corpuscular HGB Conc 34.4 g/dl (31.0-36.0); Mean Platelet Volume 9.1 fL (9.4-12.4); Monocytes Absolute Auto 0.8 X10*3/uL (0.1-1.2); Monocytes Percent Auto 13.7 % (2-11); Neutrophils Absolute Auto 4.4 x10*3/uL (2.0-8.3); Neutrophils Percent Auto 73.7 % (45-73); Platelet Count 221 X10*3/uL (160-400); Red Blood Count 4.68 X10*6/uL (4.60-5.80); White Blood Count 5.9 X10*3/uL (4.8-10.8)
[2024-10-12 11:25] LABS: Prothrombin Time 22.8 SEC (10.9-12.4)
[2024-10-12 11:27] LABS: Partial Thromboplastin Time 33.2 SEC (26.0-36.8)
[2024-10-12] MEDS: ondansetron HCL 4 MG/2 ML VIAL IVPUSH (11:34)
[2024-10-12] MEDS: LORazepam 2 MG/ML VIAL 1 MG IVPUSH (11:35)
[2024-10-12 11:37] LABS: Alanine Aminotransferase 16 U/L (0-40); Albumin Level 4.1 g/dL (3.5-5.0); Alkaline Phosphatase 87 U/L (39-117); Anion Gap 12 (12-20); Aspartate Amino Transferase 25 U/L (5-37); Bilirubin Direct 0.7 mg/dL (0.0-0.5); Bilirubin Total 1.8 mg/dL (0.0-1.0); Blood Urea Nitrogen 36 mg/dL (9-16); Calcium 9.2 mg/dL (8.4-10.2); Carbon Dioxide 29 mmol/L (22-29); Chloride 96 mmol/L (96-108); Creatinine Clr Calc Pharmacy 130.1; Estimated Glomerular Filt Rate > 60; Glucose Random 116 mg/dL (60-115); Lipase 18 U/L (8-78); Magnesium 2.1 mg/dL (1.6-2.6); Sodium 133 mmol/L (135-145); Total Protein 8.2 g/dL (6.5-8.0)
[2024-10-12 11:42] LABS: Troponin-I High Sensitivity 7.4 ng/L (<3.5-35.0)
[2024-10-12 12:09] LABS: Influenza A PCR NEGATIVE (Negative); Influenza B PCR NEGATIVE (Negative); Resp Syncy Virus RNA Qual PCR NEGATIVE (Negative); SARS COV2 PCR INHOUSE NEGATIVE (Negative)
[2024-10-12] MEDS: iohexoL 350 MG/ML 100 ML INFUS..BTL IV (12:14)
[2024-10-12 17:01] VITALS: BP 117/65; PULSE 125; RESP 20; TEMP 36.7; O2SAT 94
[2024-10-12 18:06] VITALS: BP 140/80; PULSE 80; RESP 16; TEMP 36.8; O2SAT 98
== END 2024-10-12 17:00 | disposition short-term general hospital (02) ==
PROVIDERS: Physician Assistant Medical; Emergency Provider Emergency Medicine
DX: K56.609 Unspecified intestinal obstruction, unspecified as to partial versus complete obstruction (principal); R10.2 Pelvic and perineal pain; I48.91 Unspecified atrial fibrillation; R00.0 Tachycardia, unspecified; I10 Essential (primary) hypertension; N31.9 Neuromuscular dysfunction of bladder, unspecified; R11.2 Nausea with vomiting, unspecified; Z03.818 Encounter for observation for suspected exposure to other biological agents ruled out; Z79.899 Other long term (current) drug therapy; Z79.01 Long term (current) use of anticoagulants; Z87.891 Personal history of nicotine dependence
CPT/HCPCS: 0241U; 36415; 74177; 80048; 80076; 83605; 83690; 83735; 84484; 85025; 85610; 85730; 87040; 93005; 96374; 96375; 99285; J2060; J2405; Q9967

== ENCOUNTER → 2024-10-12 10:49 | Outpatient (BNV) | payer MEDICARE, MEDICAID, SELFPAY | PROVIDERS: Emergency Provider Emergency Medicine; Visit Provider Radiology Vascular & Interventional Radiology | DX: K43.6 Other and unspecified ventral hernia with obstruction, without gangrene (principal) | CPT/HCPCS: 74177 ==

== ENCOUNTER → 2024-10-12 10:49 | Outpatient (BNV) | payer MEDICARE, MEDICAID, SELFPAY | PROVIDERS: Emergency Provider Emergency Medicine; Visit Provider Internal Medicine Cardiovascular Disease | DX: I48.91 Unspecified atrial fibrillation (principal) | CPT/HCPCS: 93010 ==